=== PATIENT | female | born 1955 | race Caucasian/White ===

== ENCOUNTER 2024-03-29 13:51 | Emergency (ER) | payer MEDICARE, SELFPAY ==
[2024-03-29] VITALS (20 sets, daily range): BP systolic 111–112; BP diastolic 45–52; PULSE 51–57; TEMP 37.1; O2SAT 88–99; BMI 25.1
--- NOTE | 2024-03-29 14:41 | XR_ITS ---
The [address] [address] Patient Name: JOSIANE TREVIÑO MRN: [id number] date: 1955 Sex: F Assigned Patient Location: ER Current Patient Location: ER Accession/Order Number: [id number] Exam Date: 03/29/2024 14:56 Report Date: 03/29/2024 15:22 At the request of: KAYLA COREA Procedure: XR chest 1V EXAMINATION: XR chest 1V HISTORY: Weak, history of nodules COMPARISON: No relevant comparison available. TECHNIQUE: AP portable FINDINGS: LUNGS: No significant pulmonary parenchymal abnormalities. Hyperinflation VASCULATURE: No increased pulmonary vasculature. PLEURA: No pneumothorax, effusion, or pleural thickening. CARDIAC: No cardiomegaly or cardiac silhouette abnormality. MEDIASTINUM: No visible mass or adenopathy. Aortic atherosclerosis BONES: No fracture or visible bone lesion. OTHER: Negative. XR/XR chest 1V IMPRESSION: Hyperinflation, clear lungs Electronically authenticated by: MARK RAMIREZ Date: 03/29/2024 15:22
--- NOTE | 2024-03-29 14:41 | ECG_ITS ---
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
--- NOTE | 2024-03-29 14:41 | CT_ITS ---
The [address] [address] Patient Name: JOSIANE TREVIÑO MRN: [id number] date: 1955 Sex: F Assigned Patient Location: ER Current Patient Location: ER Accession/Order Number: [id number] Exam Date: 03/29/2024 14:56 Report Date: 03/29/2024 16:49 At the request of: KAYLA COREA Procedure: CT head/brain wo con CT HEAD WITHOUT CONTRAST, 03/29/2024. HISTORY: Ataxia. Confusion. COMPARISON: None. TECHNIQUE: Noncontrast axial CT images obtained through the head. Reconstructions obtained in the sagittal and coronal planes. Dose reduction techniques were achieved by using automated exposure control and/or adjustment of mA and/or kV according to patient size and/or use of iterative reconstruction technique. FINDINGS: The paranasal sinuses are clear. Middle ear cavities and mastoid air cells are clear. No skull lesion. Extracranial soft tissue structures unremarkable. Mild brain atrophy. No hydrocephalus. No mass effect. No shift of midline. Mild chronic microvascular ischemic changes in the cerebral white matter. No hemorrhage. No mass. CT/CT head/brain wo con IMPRESSION: 1. No acute findings. No intracranial hemorrhage. 2. Mild chronic microvascular ischemic changes. Electronically authenticated by: MEG HAHN Date: 03/29/2024 16:49
--- NOTE | 2024-03-29 14:42 | ED_ITS ---
HPI HPI - General Adult General Chief complaint: Altered Mental Status Stated complaint: SOB, WEAK, CONFUSION Time Seen by Provider: 03/29/24 14:31 Source: patient Mode of arrival: Wheelchair Limitations: no limitations History of Present Illness HPI narrative: 68-year-old female presents to the emergency department for being off balance and some confusion. She was diagnosed with lung nodules and had a PET scan which showed multiple lesions including at the pancreas. She has an appointment next week with an oncologist and has not had any biopsy or further workup. Over the past few days her daughter explains the patient has been off balance and saying strange things, somewhat confused. There is been no trauma or fever. The patient does not complain of any pain right now including headache. Related Data Previous Rx's ?Medication ?Instructions ?Recorded cephalexin 500 mg capsule 500 mg PO TID 7 days #21 caps 03/29/24 Allergies Allergy/AdvReac Type Severity Reaction Status Date / Time codeine Allergy Severe Hives Verified 03/29/24 14:04 Iodinated Contrast Media Allergy Severe Hives Verified 03/29/24 14:04 Opioid HPI Opioid Management Most Recent Opioid Data: No Data to Display Review of Systems ROS Narrative A ten point review of systems is negative except as noted above. Exam Narrative Exam Narrative: Nurses note and vital signs reviewed and patient is not hypoxic. General: The patient appears well and in no apparent distress. Patient is resting comfortably on cart. Skin: Warm, dry, no pallor noted. There is no rash noted. Head: Normocephalic, atraumatic Eye: Normal conjunctiva, no drainage Ears, Nose, Mouth, and Throat: oral mucosa is moist. Nares patent. Cardiovascular: Regular Rate and Rhythm Respiratory: Patient is in no distress, no accessory muscle use, lungs are clear to auscultation, no wheezing, rales or rhonchi Back: non-tender GI: Soft and nontender Musculoskeletal: The patient has no evidence of calf tenderness, no pitting edema, symmetrical pulses noted bilaterally Neurological: Awake and alert, moves all 4 extremities well Psychiatric: Cooperative Constitutional Vital Signs, click to edit/add: Last Vital Signs Temp 98.7 F 03/29/24 13:56 Pulse 54 L 03/29/24 16:40 Resp 19 03/29/24 16:40 BP 111/52 03/29/24 16:15 Pulse Ox 95 03/29/24 16:10 O2 Del Method Room Air 03/29/24 13:56 Course Vital Signs Vital signs: Vital Signs Temperature 98.7 F 03/29/24 13:56 Pulse Rate 55 L 03/29/24 13:56 Respiratory Rate 16 03/29/24 13:56 Blood Pressure 112/45 L 03/29/24 13:56 Pulse Oximetry 95 03/29/24 13:56 Oxygen Delivery Method Room Air 03/29/24 13:56 Temperature 98.7 F 03/29/24 13:56 Pulse Rate 54 L 03/29/24 16:40 Respiratory Rate 19 03/29/24 16:40 Blood Pressure 111/52 03/29/24 16:15 Pulse Oximetry 95 03/29/24 16:10 Oxygen Delivery Method Room Air 03/29/24 13:56 Medical Decision Making MDM Narrative Medical decision making narrative: CT brain and blood work is negative. Urinalysis shows urinary tract infection and she started on Keflex here and prescribed the same. The patient, her daughter, and I discussed admission and they do not feel that she needs to be admitted. I am comfortable with that plan and she is discharged home. Treatment diagnosis and follow-up were discussed with the patient and her daughter. Differential Diagnosis Differential Diagnosis: Brain metastasis, anemia, acute kidney injury, UTI Lab Data Lab results reviewed: Yes I reviewed the patient's lab results Labs: Lab Results 03/29/24 03/29/24 Range/Units 14:20 16:25 WBC 14.3 H (4.0-11.0) 10^3/uL RBC 4.23 (4.20-5.40) 10^6/uL Hgb 12.8 (12.0-16.0) g/dL Hct 39.7 (36.0-48.0) % MCV 93.9 (81.0-99.0) fL MCH 30.3 (26.7-34.0) pg MCHC 32.2 (29.9-35.2) g/dL RDW 13.2 (11.0-15.0) % Plt Count 298 (150-450) 10^3/uL MPV 11.3 (9.5-13.5) fL Neut % (Auto) 61.9 (43.0-75.0) % Lymph % (Auto) 27.5 (20.5-60.0) % [place] % (Auto) 7.8 (1.7-12.0) % Eos % (Auto) 1.8 (0.9-7.0) % Baso % (Auto) 0.6 (0.2-2.0) % Neut # (Auto) 8.8 H (1.4-6.5) 10^3/uL Lymph # (Auto) 3.9 H (1.2-3.8) 10^3/uL [place] # (Auto) 1.1 H (0.3-0.8) 10^3/uL Eos # (Auto) 0.3 (0.0-0.7) 10^3/uL Baso # (Auto) 0.1 (0.0-0.1) 10^3/uL Abs Immat Gran (auto) 0.06 H (0.00-0.03) 10^3/uL Imm/Tot Granulo (auto) 0.4 (0.0-0.5) % Sodium 134 L (136-145) mmol/L Potassium 3.5 (3.5-5.1) mmol/L Chloride 103 (98-107) mmol/L Carbon Dioxide 26.2 (21.0-32.0) mmol/L Anion Gap 8.3 BUN 8.0 (7.0-18.0) mg/dL Creatinine 0.76 (0.55-1.02) mg/dL Est GFR ( Amer) >60 (>=60) Est GFR (Non-Af Amer) >60 (>=60) BUN/Creatinine Ratio 10.5 Glucose 100 (74-106) mg/dL Calcium 8.8 (8.5-10.1) mg/dL Amylase 25 (25-115) U/L Lipase 34.0 (16.0-77.0) U/L Urine Color Yellow (YELLOW) Urine Clarity Sl cloudy (CLEAR) Urine pH 7.0 (5.0-9.0) Ur Specific [place] <=1.005 A (1.005-1.025) Urine Protein Negative (NEG/TRACE) mg/dL Urine Glucose (UA) Negative (NEGATIVE) mg/dL Urine Ketones Negative (NEGATIVE) mg/dL Urine Occult Blood Trace-i (NEGATIVE) Urine Nitrite Positive A (NEGATIVE) Urine Bilirubin Negative (NEGATIVE) Urine Urobilinogen 0.2 (0.2-1.0) EU/dL Ur Leukocyte Esterase Large A (NEGATIVE) Urine RBC 0-2 (0-2) #/HPF Urine WBC 75-100 A (NONE SEEN) #/HPF Ur Squamous Epith Cells Few A (NONE/RARE) #/LPF Urine Crystals None seen (None Seen) #/HPF Urine Bacteria Large A (NONE SEEN) #/HPF Urine Casts None seen (NONE SEEN) #/LPF Urine Mucus None seen (NONE SEEN) Ur Culture Indicated? Yes Imaging Data CT scan - head: Radiologist's impression: ITS Impressions Chest X-Ray 03/29/24 14:41 IMPRESSION: Hyperinflation, clear lungs Electronically authenticated by: MARK RAMIREZ Date: 03/29/2024 15:[address] 03/29/24 14:41 IMPRESSION: 1. No acute findings. No intracranial hemorrhage. 2. Mild chronic microvascular ischemic changes. Electronically authenticated by: MEG HAHN Date: 03/29/2024 16:49 Discharge Plan Discharge Chief Complaint: Altered Mental Status Clinical Impression: Urinary tract infection Patient Disposition: Home, Self-Care Time of Disposition Decision: 17:05 Condition: Good Mode of Transportation: Private Vehicle Prescriptions / Home Meds: New cephalexin 500 mg capsule 500 mg PO TID 7 Days Qty: 21 0RF Print Language: [place] Instructions: Urinary Tract Infection in Older Adults (ED) Referrals: Physician,Non-Staff, [Primary Care Provider] - 1 week
[2024-03-29 14:52] LABS: Basophils Absolute Auto 0.1 10^3/uL (0.0-0.1); Basophils Percent Auto 0.6 % (0.2-2.0); Eosinophils Absolute Auto 0.3 10^3/uL (0.0-0.7); Eosinophils Percent Auto 1.8 % (0.9-7.0); Hematocrit 39.7 % (36.0-48.0); Hemoglobin 12.8 g/dL (12.0-16.0); Immature Granulocytes Abs Auto 0.06 10^3/uL (0.00-0.03); Immature Granulocytes Pct Auto 0.4 % (0.0-0.5); Lymphocytes Absolute Auto 3.9 10^3/uL (1.2-3.8); Lymphocytes Percent Auto 27.5 % (20.5-60.0); Mean Corpuscular HGB Conc 32.2 g/dL (29.9-35.2); Mean Corpuscular Hemoglobin 30.3 pg (26.7-34.0); Mean Corpuscular Volume 93.9 fL (81.0-99.0); Mean Platelet Volume 11.3 fL (9.5-13.5); Monocytes Absolute Auto 1.1 10^3/uL (0.3-0.8); Monocytes Percent Auto 7.8 % (1.7-12.0); Neutrophils Absolute Auto 8.8 10^3/uL (1.4-6.5); Neutrophils Percent Auto 61.9 % (43.0-75.0); Platelet Count 298 10^3/uL (150-450); Red Blood Count 4.23 10^6/uL (4.20-5.40); Red Cell Distribution Width 13.2 % (11.0-15.0); White Blood Count 14.3 10^3/uL (4.0-11.0)
[2024-03-29 15:09] LABS: Anion Gap 8.3; BUN Creatinine Ratio 10.5; Calcium 8.8 mg/dL (8.5-10.1); Carbon Dioxide 26.2 mmol/L (21.0-32.0); Chloride 103 mmol/L (98-107); Estimated GFR (African America >60 (>=60); Estimated GFR (Non-African Ame >60 (>=60); Glucose 100 mg/dL (74-106); Potassium 3.5 mmol/L (3.5-5.1); Sodium 134 mmol/L (136-145)
[2024-03-29 15:21] LABS: Amylase 25 U/L (25-115)
[2024-03-29 16:43] LABS: Bilirubin Urine NEGATIVE (NEGATIVE); Blood Urine TRACE-I (NEGATIVE); Clarity Urine SL CLOUDY (CLEAR); Color Urine YELLOW (YELLOW); Glucose Urine UA NEGATIVE (NEGATIVE); Ketones Urine NEGATIVE (NEGATIVE); Leukocyte Esterase Urine LARGE (NEGATIVE); Nitrite Urine POSITIVE (NEGATIVE); Protein Urine NEGATIVE (NEG/TRACE); Specific Gravity Urine <=1.005 (1.005-1.025); Urobilinogen Urine 0.2 EU/dL (0.2-1.0)
[2024-03-29 16:53] LABS: WBC Urine 75-100 #/HPF (NONE SEEN)
[2024-03-29 16:54] LABS: Bacteria Urine LARGE #/HPF (NONE SEEN); Cast Seen? NONE SEEN #/LPF (NONE SEEN); Crystals Seen? None Seen #/HPF (None Seen); Mucus Urine NONE SEEN (NONE SEEN); RBC Urine 0-2 #/HPF (0-2); Squamous Epithelial Cell Urine FEW #/LPF (NONE/RARE); Urine Culture Indicated YES
[2024-03-29] MEDS: CEPHALEXIN 500 MG CAPSULE PO (17:11)
== END 2024-03-29 17:30 | disposition home or self-care (01) ==
PROVIDERS: Emergency Provider Emergency Medicine
DX: N39.0 Urinary tract infection, site not specified (principal)
CPT/HCPCS: 36415; 70450; 71045; 80048; 81001; 82150; 83690; 85025; 87086; 87150; 87186; 93005; 99285

== ENCOUNTER 2024-05-21 17:09 | Inpatient (IN) | payer MEDICARE, SELFPAY ==
[2024-05-21] VITALS (20 sets, daily range): BP systolic 80–124; BP diastolic 34–71; PULSE 74–88; TEMP 36.9–37.3; O2SAT 92–96; BMI 30.3; BMI 25.2
--- NOTE | 2024-05-21 17:10 | XR_ITS ---
The [address] [address] Patient Name: JOSIANE TREVIÑO MRN: [id number] date: 1955 Sex: F Assigned Patient Location: ED.MAIN Current Patient Location: ER Accession/Order Number: [id number] Exam Date: 05/21/2024 17:49 Report Date: 05/21/2024 20:09 At the request of: PALMA CAR Procedure: XR chest 1V EXAM: XR chest 1V , 05/21/2024 HISTORY: dizzy COMPARISON: Previous x-ray from 03/29/2024 TECHNIQUE: X-ray of the chest, portable upright AP view. FINDINGS: Cardiac silhouette within normal limits. Mild atherosclerotic calcification of the aortic arch. Bilateral mild emphysema with basal atelectasis. No focal consolidation or pulmonary edema. Right apical 1 cm nodular density, CT scan recommended for complete evaluation. No acute osseous findings. XR/XR chest 1V IMPRESSION: No acute cardiopulmonary findings. Right apical 1 cm nodular density, CT scan recommended for complete evaluation. Electronically authenticated by: MANJEET AMADO Date: 05/21/2024 20:09
--- NOTE | 2024-05-21 17:10 | ECG_ITS ---
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
--- NOTE | 2024-05-21 17:12 | CT_ITS ---
The [address] [address] Patient Name: JOSIANE TREVIÑO MRN: [id number] date: 1955 Sex: F Assigned Patient Location: ED.MAIN Current Patient Location: ED.MAIN Accession/Order Number: [id number] Exam Date: 05/21/2024 17:49 Report Date: 05/21/2024 20:06 At the request of: PALMA CAR Procedure: CT head/brain wo con CT HEAD WITHOUT CONTRAST. INDICATION: Dizziness. COMPARISON: 03/29/2024 TECHNIQUE: Axial CT head images from the skull base to the vertex without IV contrast were acquired. Coronal and sagittal reformats were also obtained. FINDINGS: EXTRA-AXIAL SPACE: Age-appropriate ventricles. No acute extra-axial collection. No extra-axial mass. No midline shift. CEREBRUM: There are areas of periventricular and deep white matter low-attenuation, which is nonspecific but likely reflective of chronic microvascular ischemic disease.. No CT evidence of acute large territorial cortical infarct, hemorrhage or mass effect. CEREBELLUM: No focal abnormality. No CT evidence of acute infarct, hemorrhage or mass effect. BRAINSTEM: No focal abnormality. No CT evidence of acute infarct, hemorrhage or mass effect. EXTRACRANIAL STRUCTURES. The paranasal sinuses are clear. Mastoid air cells are clear. Orbits are unremarkable. No discrete pituitary mass. Intact calvarium. CT/CT head/brain wo con IMPRESSION: No acute intracranial abnormality. Electronically authenticated by: GUILLERMO PRADO Date: 05/21/2024 20:06
--- NOTE | 2024-05-21 17:13 | ED.GENADUL1 ---
HPI HPI - General Adult General Chief complaint: Dizziness Stated complaint: HYPOGLYCEMIA Time Seen by Provider: 05/21/24 17:10 Source: patient and EMR Mode of arrival: ambulance History of Present Illness HPI narrative: Patient is a 68 year old female who presents to the emergency department by ambulance for the evaluation of low blood sugar. Related Data Home Medications ?Medication ?Instructions ?Recorded ?Confirmed albuterol sulfate 90 mcg/actuation 1 puff inhalation Q4H PRN 05/21/24 05/21/24 aerosol inhaler shortness of breath or wheezing atorvastatin 40 mg tablet 40 mg PO DAILY 05/21/24 05/21/24 benzonatate 200 mg capsule 200 mg PO BID 05/21/24 05/21/24 cyanocobalamin (vitamin B-12) 500 500 mcg PO DAILY 05/21/24 05/21/24 mcg tablet diazepam 10 mg tablet 10 mg PO BID PRN anxiety 05/21/24 05/21/24 folic acid 1 mg tablet 1 mg PO DAILY 05/21/24 05/21/24 gabapentin 300 mg capsule 300 mg PO BID 05/21/24 05/21/24 glimepiride 2 mg tablet 2 mg PO QAM 05/21/24 05/21/24 hydrocodone 5 mg-acetaminophen 325 1 tab PO Q6H PRN pain 05/21/24 05/21/24 mg tablet losartan 50 mg tablet 50 mg PO DAILY 05/21/24 05/21/24 metformin 500 mg tablet 500 mg PO BID 05/21/24 05/21/24 paroxetine HCl 30 mg tablet 30 mg PO DAILY 05/21/24 05/21/24 Previous Rx's ?Medication ?Instructions ?Recorded cephalexin 500 mg capsule 500 mg PO TID 7 days #21 caps 03/29/24 Allergies Allergy/AdvReac Type Severity Reaction Status Date / Time codeine Allergy Severe Hives Verified 05/21/24 17:12 Iodinated Contrast Media Allergy Severe Hives Verified 05/21/24 17:12 Opioid HPI Opioid Management Most Recent Opioid Data: No Data to Display Review of Systems ROS Constitutional Denies: fever or chills Ears, nose, mouth, and throat Denies: throat pain or nasal congestion Cardiovascular Denies: chest pain Respiratory Denies: shortness of breath or cough Gastrointestinal Denies: nausea or vomiting Genitourinary Denies: painful urination Musculoskeletal Denies: back pain Integumentary/Breast Denies: rash Neurological Denies: numbness in extremities or weakness in extremities Hematologic/Lymphatic Denies: easy bruising or easy bleeding PFSH [facility] Medical History (Updated 05/21/24 @ 20:42 by ROSALIND Bradshaw) Lung cancer ?C34.90 - Malignant neoplasm of unspecified part of unspecified bronchus or lung (ICD-10) Hypotension ?I95.9 - Hypotension, unspecified (ICD-10) Emphysema of lung ?J43.9 - Emphysema, unspecified (ICD-10) Diabetes ?E11.9 - Type 2 diabetes mellitus without complications (ICD-10) COPD (chronic obstructive pulmonary disease) ?J44.9 - Chronic obstructive pulmonary disease, unspecified (ICD-10) Exam Narrative Exam Narrative: Gen.: Awake, alert, in no distress Head: Normocephalic, atraumatic ENT: Moist mucous membranes, no facial or dental injury Respiratory: No respiratory distress, lungs clear bilaterally Cardio: Regular rate and rhythm Gastrointestinal: Abdomen is soft, nondistended and nontender to palpation Extremities: Moves extremities equally, no injuries noted Psych: Normal mood and affect Neuro: Alert and oriented to person, place, disoriented to time Skin: Warm, dry, intact Constitutional Vital Signs, click to edit/add: Last Vital Signs Temp 99.2 F 05/21/24 17:12 Pulse 80 05/21/24 20:28 Resp 20 05/21/24 20:28 BP 112/64 05/21/24 20:28 Pulse Ox 93 L 05/21/24 20:28 O2 Del Method Room Air 05/21/24 17:29 Course Vital Signs Vital signs: Vital Signs Temperature 99.2 F 05/21/24 17:12 Pulse Rate 79 05/21/24 17:12 Respiratory Rate 20 05/21/24 17:12 Blood Pressure 81/42 L 05/21/24 17:12 Pulse Oximetry 93 L 05/21/24 17:12 Oxygen Delivery Method Room Air 05/21/24 17:12 Temperature 99.2 F 05/21/24 17:12 Pulse Rate 80 05/21/24 20:28 Respiratory Rate 20 05/21/24 20:28 Blood Pressure 112/64 05/21/24 20:28 Pulse Oximetry 93 L 05/21/24 20:28 Oxygen Delivery Method Room Air 05/21/24 17:29 Medical Decision Making MDM Narrative Medical decision making narrative: Patient was medicated with a total of 2 amps of D50, after the first amp, the patient again had hypoglycemia. She was given orange juice and an additional amp of D50, D10 infusion was started at 50 mL/h.. Patient's blood pressure improved with IV fluids. The remainder of her labs show mild dehydration, no evidence of urinary tract infection. Patient with no EKG changes. She has no complaints of chest pain or shortness of breath in the ER. Head CT, chest x-ray reviewed by the radiologist, there is evidence of a lung nodule that is known to the patient already. She is in process of seeking treatment from hematology/oncology for the lung nodule and abnormal PET scan with uptake in the pancreas. She is not currently receiving any chemo or radiation. Patient will be admitted to the hospitalist service for management of her hypoglycemia and hypotension. She is stable at time of admission with stable vital signs. SUPERVISED APC VISIT, PHYSICIAN ATTESTATION: Based on the medical record the care appears appropriate. ? Medical Records Medical records reviewed: Yes I reviewed the patient's medical records Lab Data Lab results reviewed: Yes I reviewed the patient's lab results Labs: Lab Results 05/21/24 05/21/24 05/21/24 Range/Units 17:12 17:20 17:43 WBC 10.9 (4.0-11.0) 10^3/uL RBC 3.83 L (4.20-5.40) 10^6/uL Hgb 11.5 L (12.0-16.0) g/dL Hct 34.9 L (36.0-48.0) % MCV 91.1 (81.0-99.0) fL MCH 30.0 (26.7-34.0) pg MCHC 33.0 (29.9-35.2) g/dL RDW 14.5 (11.0-15.0) % Plt Count 318 (150-450) 10^3/uL MPV 11.4 (9.5-13.5) fL Neut % (Auto) 77.7 H (43.0-75.0) % Lymph % (Auto) 12.8 L (20.5-60.0) % [place] % (Auto) 6.6 (1.7-12.0) % Eos % (Auto) 1.8 (0.9-7.0) % Baso % (Auto) 0.5 (0.2-2.0) % Neut # (Auto) 8.5 H (1.4-6.5) 10^3/uL Lymph # (Auto) 1.4 (1.2-3.8) 10^3/uL [place] # (Auto) 0.7 (0.3-0.8) 10^3/uL Eos # (Auto) 0.2 (0.0-0.7) 10^3/uL Baso # (Auto) 0.1 (0.0-0.1) 10^3/uL Abs Immat Gran (auto) 0.07 H (0.00-0.03) 10^3/uL Imm/Tot Granulo (auto) 0.6 H (0.0-0.5) % PT 11.9 H (9.0-11.6) sec INR 1.14 VBG pH 7.332 (7.330-7.430) VBG pCO2 39.5 L (40.0-52.0) mmHg Sodium 141 (136-145) mmol/L Potassium 3.3 L (3.5-5.1) mmol/L Chloride 106 (98-107) mmol/L Carbon Dioxide 23.0 (21.0-32.0) mmol/L Anion Gap 15.3 BUN 14.0 (7.0-18.0) mg/dL Creatinine 1.46 H (0.55-1.02) mg/dL Est GFR ( Amer) 43 L (>=60 mL/min/1.73m^2) Est GFR (Non-Af Amer) 35 L (>=60 mL/min/1.73m^2) BUN/Creatinine Ratio 9.6 Glucose 55 L (74-106) mg/dL Lactate 2.4 H* (0.4-2.0) mmol/L Calcium 8.7 (8.5-10.1) mg/dL Total Bilirubin 0.3 (0.2-1.0) mg/dL AST 29 (15-37) U/L ALT 23 (14-59) U/L Alkaline Phosphatase 108 (46-116) U/L Troponin I High Sens 4.2 (4.0-51.3) pg/mL Total Protein 6.9 (6.4-8.2) g/dL Albumin 2.8 L (3.4-5.0) g/dL Globulin 4.1 g/dL Albumin/Globulin Ratio 0.7 TSH 1.496 (0.358-3.740) uIU/mL Urine Color Yellow (YELLOW) Urine Clarity Clear (CLEAR) Urine pH 6.5 (5.0-9.0) Ur Specific [place] 1.015 (1.005-1.025) Urine Protein 30 A (NEG/TRACE) mg/dL Urine Glucose (UA) Negative (NEGATIVE) mg/dL Urine Ketones Negative (NEGATIVE) mg/dL Urine Occult Blood Negative (NEGATIVE) Urine Nitrite Negative (NEGATIVE) Urine Bilirubin Negative (NEGATIVE) Urine Urobilinogen 0.2 (0.2-1.0) EU/dL Ur Leukocyte Esterase Negative (NEGATIVE) Urine RBC 0-2 (0-2) #/HPF Urine WBC 0-2 A (NONE SEEN) #/HPF Ur Squamous Epith Cells Rare (NONE/RARE) #/LPF Urine Crystals None seen (None Seen) #/HPF Urine Bacteria Trace A (NONE SEEN) #/HPF Urine Casts None seen (NONE SEEN) #/LPF Urine Mucus None seen (NONE SEEN) Ur Culture Indicated? No Ethanol Quant <3 mg/dL POC Glucose 69 L (74-106) mg/dL 05/21/24 05/21/24 05/21/24 Range/Units 17:56 18:34 19:37 WBC (4.0-11.0) 10^3/uL RBC (4.20-5.40) 10^6/uL Hgb (12.0-16.0) g/dL Hct (36.0-48.0) % MCV (81.0-99.0) fL MCH (26.7-34.0) pg MCHC (29.9-35.2) g/dL RDW (11.0-15.0) % Plt Count (150-450) 10^3/uL MPV (9.5-13.5) fL Neut % (Auto) (43.0-75.0) % Lymph % (Auto) (20.5-60.0) % [place] % (Auto) (1.7-12.0) % Eos % (Auto) (0.9-7.0) % Baso % (Auto) (0.2-2.0) % Neut # (Auto) (1.4-6.5) 10^3/uL Lymph # (Auto) (1.2-3.8) 10^3/uL [place] # (Auto) (0.3-0.8) 10^3/uL Eos # (Auto) (0.0-0.7) 10^3/uL Baso # (Auto) (0.0-0.1) 10^3/uL Abs Immat Gran (auto) (0.00-0.03) 10^3/uL Imm/Tot Granulo (auto) (0.0-0.5) % PT (9.0-11.6) sec INR VBG pH (7.330-7.430) VBG pCO2 (40.0-52.0) mmHg Sodium (136-145) mmol/L Potassium (3.5-5.1) mmol/L Chloride (98-107) mmol/L Carbon Dioxide (21.0-32.0) mmol/L Anion Gap BUN (7.0-18.0) mg/dL Creatinine (0.55-1.02) mg/dL Est GFR ( Amer) (>=60 mL/min/1.73m^2) Est GFR (Non-Af Amer) (>=60 mL/min/1.73m^2) BUN/Creatinine Ratio Glucose (74-106) mg/dL Lactate (0.4-2.0) mmol/L Calcium (8.5-10.1) mg/dL Total Bilirubin (0.2-1.0) mg/dL AST (15-37) U/L ALT (14-59) U/L Alkaline Phosphatase (46-116) U/L Troponin I High Sens (4.0-51.3) pg/mL Total Protein (6.4-8.2) g/dL Albumin (3.4-5.0) g/dL Globulin g/dL Albumin/Globulin Ratio TSH (0.358-3.740) uIU/mL Urine Color (YELLOW) Urine Clarity (CLEAR) Urine pH (5.0-9.0) Ur Specific [place] (1.005-1.025) Urine Protein (NEG/TRACE) mg/dL Urine Glucose (UA) (NEGATIVE) mg/dL Urine Ketones (NEGATIVE) mg/dL Urine Occult Blood (NEGATIVE) Urine Nitrite (NEGATIVE) Urine Bilirubin (NEGATIVE) Urine Urobilinogen (0.2-1.0) EU/dL Ur Leukocyte Esterase (NEGATIVE) Urine RBC (0-2) #/HPF Urine WBC (NONE SEEN) #/HPF Ur Squamous Epith Cells (NONE/RARE) #/LPF Urine Crystals (None Seen) #/HPF Urine Bacteria (NONE SEEN) #/HPF Urine Casts (NONE SEEN) #/LPF Urine Mucus (NONE SEEN) Ur Culture Indicated? Ethanol Quant mg/dL POC Glucose 74 120 H 37 L* (74-106) mg/dL 05/21/24 05/21/24 Range/Units 20:05 20:31 WBC (4.0-11.0) 10^3/uL RBC (4.20-5.40) 10^6/uL Hgb (12.0-16.0) g/dL Hct (36.0-48.0) % MCV (81.0-99.0) fL MCH (26.7-34.0) pg MCHC (29.9-35.2) g/dL RDW (11.0-15.0) % Plt Count (150-450) 10^3/uL MPV (9.5-13.5) fL Neut % (Auto) (43.0-75.0) % Lymph % (Auto) (20.5-60.0) % [place] % (Auto) (1.7-12.0) % Eos % (Auto) (0.9-7.0) % Baso % (Auto) (0.2-2.0) % Neut # (Auto) (1.4-6.5) 10^3/uL Lymph # (Auto) (1.2-3.8) 10^3/uL [place] # (Auto) (0.3-0.8) 10^3/uL Eos # (Auto) (0.0-0.7) 10^3/uL Baso # (Auto) (0.0-0.1) 10^3/uL Abs Immat Gran (auto) (0.00-0.03) 10^3/uL Imm/Tot Granulo (auto) (0.0-0.5) % PT (9.0-11.6) sec INR VBG pH (7.330-7.430) VBG pCO2 (40.0-52.0) mmHg Sodium (136-145) mmol/L Potassium (3.5-5.1) mmol/L Chloride (98-107) mmol/L Carbon Dioxide (21.0-32.0) mmol/L Anion Gap BUN (7.0-18.0) mg/dL Creatinine (0.55-1.02) mg/dL Est GFR ( Amer) (>=60 mL/min/1.73m^2) Est GFR (Non-Af Amer) (>=60 mL/min/1.73m^2) BUN/Creatinine Ratio Glucose (74-106) mg/dL Lactate (0.4-2.0) mmol/L Calcium (8.5-10.1) mg/dL Total Bilirubin (0.2-1.0) mg/dL AST (15-37) U/L ALT (14-59) U/L Alkaline Phosphatase (46-116) U/L Troponin I High Sens (4.0-51.3) pg/mL Total Protein (6.4-8.2) g/dL Albumin (3.4-5.0) g/dL Globulin g/dL Albumin/Globulin Ratio TSH (0.358-3.740) uIU/mL Urine Color (YELLOW) Urine Clarity (CLEAR) Urine pH (5.0-9.0) Ur Specific [place] (1.005-1.025) Urine Protein (NEG/TRACE) mg/dL Urine Glucose (UA) (NEGATIVE) mg/dL Urine Ketones (NEGATIVE) mg/dL Urine Occult Blood (NEGATIVE) Urine Nitrite (NEGATIVE) Urine Bilirubin (NEGATIVE) Urine Urobilinogen (0.2-1.0) EU/dL Ur Leukocyte Esterase (NEGATIVE) Urine RBC (0-2) #/HPF Urine WBC (NONE SEEN) #/HPF Ur Squamous Epith Cells (NONE/RARE) #/LPF Urine Crystals (None Seen) #/HPF Urine Bacteria (NONE SEEN) #/HPF Urine Casts (NONE SEEN) #/LPF Urine Mucus (NONE SEEN) Ur Culture Indicated? Ethanol Quant mg/dL POC Glucose 59 L 247 H (74-106) mg/dL Imaging Data CT scan - head: Attestation: I have reviewed the pertinent imaging results. Radiologist's impression: ITS Impressions Chest X-Ray 05/21/24 17:10 IMPRESSION: No acute cardiopulmonary findings. Right apical 1 cm nodular density, CT scan recommended for complete evaluation. Electronically authenticated by: MANJEET AMADO Date: 05/21/2024 20:[address] 05/21/24 17:12 IMPRESSION: No acute intracranial abnormality. Electronically authenticated by: GUILLERMO PRADO Date: 05/21/2024 20:06 ECG Data Attestation: I personally reviewed and interpreted this ECG as follows: (Normal sinus rhythm at a rate of 79, no acute ST elevation. Mild ST depression in the lateral leads, no ectopy. EKG reviewed by attending physician) Discharge Plan Discharge Chief Complaint: Dizziness Patient Disposition: Admitted as Observation Time of Disposition Decision: 20:40 Prescriptions / Home Meds: No Action albuterol sulfate 90 mcg/actuation HFA aerosol inhaler 1 puff INHALATION Q4H PRN (Reason: shortness of breath or wheezing) atorvastatin 40 mg tablet 40 mg PO DAILY benzonatate 200 mg capsule 200 mg PO BID cyanocobalamin (vitamin B-12) 500 mcg tablet 500 mcg PO DAILY diazepam 10 mg tablet 10 mg PO BID PRN (Reason: anxiety) folic acid 1 mg tablet 1 mg PO DAILY gabapentin 300 mg capsule 300 mg PO BID glimepiride 2 mg tablet 2 mg PO QAM hydrocodone-acetaminophen 5-325 mg tablet 1 tab PO Q6H PRN (Reason: pain) losartan 50 mg tablet 50 mg PO DAILY metformin 500 mg tablet 500 mg PO BID paroxetine HCl 30 mg tablet 30 mg PO DAILY cephalexin 500 mg capsule 500 mg PO TID 7 Days Qty: 21 0RF Print Language: Romansh Referrals: Physician,Non-Staff, MD [Physician] - 1 week
[2024-05-21 17:15] LABS: Glucometer 69 mg/dL (74-106)
[2024-05-21] MEDS: DEXTROSE 50 %-WATER 25 GM/50 ML SYRINGE 25 ML IV ×2 (17:22→18:21)
[2024-05-21] MEDS: 0.9 % SODIUM CHLORIDE 1,000 ML 1000 ML IV (17:23)
[2024-05-21 17:32] LABS: PCO2 VBG 39.5 mmHg (40.0-52.0); pH VBG 7.332 (7.330-7.430)
[2024-05-21 17:48] LABS: Basophils Absolute Auto 0.1 10^3/uL (0.0-0.1); Basophils Percent Auto 0.5 % (0.2-2.0); Eosinophils Absolute Auto 0.2 10^3/uL (0.0-0.7); Eosinophils Percent Auto 1.8 % (0.9-7.0); Hematocrit 34.9 % (36.0-48.0); Hemoglobin 11.5 g/dL (12.0-16.0); Immature Granulocytes Abs Auto 0.07 10^3/uL (0.00-0.03); Immature Granulocytes Pct Auto 0.6 % (0.0-0.5); Lymphocytes Absolute Auto 1.4 10^3/uL (1.2-3.8); Lymphocytes Percent Auto 12.8 % (20.5-60.0); Mean Corpuscular Volume 91.1 fL (81.0-99.0); Mean Platelet Volume 11.4 fL (9.5-13.5); Monocytes Absolute Auto 0.7 10^3/uL (0.3-0.8); Monocytes Percent Auto 6.6 % (1.7-12.0); Neutrophils Absolute Auto 8.5 10^3/uL (1.4-6.5); Neutrophils Percent Auto 77.7 % (43.0-75.0); Platelet Count 318 10^3/uL (150-450); Red Blood Count 3.83 10^6/uL (4.20-5.40); Red Cell Distribution Width 14.5 % (11.0-15.0); White Blood Count 10.9 10^3/uL (4.0-11.0)
[2024-05-21 17:53] LABS: INR 1.14; Prothrombin Time 11.9 sec (9.0-11.6)
[2024-05-21 17:59] LABS: Glucometer 74 mg/dL (74-106)
[2024-05-21 18:00] LABS: Alanine Aminotransferase 23 U/L (14-59); Albumin Globulin Ratio 0.7; Albumin Level 2.8 g/dL (3.4-5.0); Alkaline Phosphatase 108 U/L (46-116); Anion Gap 15.3; Aspartate Amino Transferase 29 U/L (15-37); BUN Creatinine Ratio 9.6; Bilirubin Total 0.3 mg/dL (0.2-1.0); Calcium 8.7 mg/dL (8.5-10.1); Chloride 106 mmol/L (98-107); Estimated GFR (African America 43 (>=60 mL/min/1.73m^2); Estimated GFR (Non-African Ame 35 (>=60 mL/min/1.73m^2); Globulin 4.1 g/dL; Glucose 55 mg/dL (74-106); Potassium 3.3 mmol/L (3.5-5.1); Sodium 141 mmol/L (136-145); Thyroid Stimulating Hormone 1.496 uIU/mL (0.358-3.740); Total Protein 6.9 g/dL (6.4-8.2); Troponin I High Sensitivity 4.2 pg/mL (4.0-51.3)
[2024-05-21 18:01] LABS: Bilirubin Urine NEGATIVE (NEGATIVE); Blood Urine NEGATIVE (NEGATIVE); Clarity Urine CLEAR (CLEAR); Color Urine YELLOW (YELLOW); Glucose Urine UA NEGATIVE (NEGATIVE); Ketones Urine NEGATIVE (NEGATIVE); Leukocyte Esterase Urine NEGATIVE (NEGATIVE); Nitrite Urine NEGATIVE (NEGATIVE); Protein Urine 30 mg/dL (NEG/TRACE); Specific Gravity Urine 1.015 (1.005-1.025); Urobilinogen Urine 0.2 EU/dL (0.2-1.0); pH Urine 6.5 (5.0-9.0)
[2024-05-21 18:03] LABS: Lactate/Lactic Acid 2.4 mmol/L (0.4-2.0)
[2024-05-21 18:07] LABS: Urine Microscopic Indicated YES
[2024-05-21 18:14] LABS: Bacteria Urine TRACE #/HPF (NONE SEEN); Cast Seen? NONE SEEN #/LPF (NONE SEEN); Crystals Seen? None Seen #/HPF (None Seen); Mucus Urine NONE SEEN (NONE SEEN); RBC Urine 0-2 #/HPF (0-2); Squamous Epithelial Cell Urine RARE #/LPF (NONE/RARE); Urine Culture Indicated NO; WBC Urine 0-2 #/HPF (NONE SEEN)
[2024-05-21 18:18] LABS: Ethanol <3 mg/dL
[2024-05-21 18:38] LABS: Glucometer 120 mg/dL (74-106)
[2024-05-21 19:39] LABS: Glucometer 37 mg/dL (74-106)
[2024-05-21] MEDS: DEXTROSE 10 % IN WATER 1,000 ML 50 ML IV (19:48)
[2024-05-21 20:08] LABS: Glucometer 59 mg/dL (74-106)
[2024-05-21] MEDS: DEXTROSE 50 %-WATER 25 GM/50 ML SYRINGE IV ×2 (20:25→22:43)
[2024-05-21 20:33] LABS: Glucometer 247 mg/dL (74-106)
[2024-05-21 21:03] LABS: Glucometer 138 mg/dL (74-106)
[2024-05-21 22:20] LABS: Glucometer 67 mg/dL (74-106)
[2024-05-21] MEDS: ENOXAPARIN SODIUM 30 MG/0.3 ML SYRINGE SUBQ (23:06)
[2024-05-21] MEDS: DEXTROSE 5%-LACTATED RINGERS 1,000 ML 125 ML IV (23:07)
[2024-05-21 23:12] LABS: Internal Control Within Normal Limits; Occult Blood Negative
[2024-05-21 23:55] LABS: Influenza Virus A Antigen Negative; Influenza Virus B Antigen Negative; Internal Control Within Normal Limits; SARS-CoV-2 Ag NEGATIVE (NEGATIVE)
[2024-05-22] VITALS (18 sets, daily range): BP systolic 125–153; BP diastolic 52–74; PULSE 61–96; TEMP 36.8–37.3; O2SAT 91–93
[2024-05-22] MEDS: DEXTROSE 50 %-WATER 25 GM/50 ML SYRINGE IV (01:07)
[2024-05-22 01:55] LABS: Glucometer 212 mg/dL (74-106)
[2024-05-22] MEDS: GLUCAGON 1 MG/ML VIAL SUBQ (01:55)
--- NOTE | 2024-05-22 02:30 | CT_ITS ---
The [address] [address] Patient Name: JOSIANE TREVIÑO MRN: [id number] date: 1955 Sex: F Assigned Patient Location: [place] Current Patient Location: [place] Accession/Order Number: [id number] Exam Date: 05/22/2024 05:40 Report Date: 05/22/2024 06:44 At the request of: GAVI PORTER Procedure: CT abdomen pelvis wo con EXAM: CT abdomen pelvis wo con HISTORY: refractory hypoglycemia COMPARISON: None. TECHNIQUE: Nonenhanced CT imaging the abdomen and pelvis was performed with sagittal and coronal reconstructions. Dose reduction techniques were achieved by using automated exposure control and/or adjustment of mA and/or kV according to patient size and/or use of iterative reconstruction technique. FINDINGS: CT ABDOMEN: Mild emphysematous changes are seen at the lung bases with motion artifact. The imaged heart is unremarkable. Mildly prominent but nonenlarged anterior pericardial lymph nodes are present. The exam is limited by the lack of IV contrast. Solid organ lesions or acute abnormalities could be missed. There is a 0.7 cm hypodense lesion in the inferior right hepatic lobe, incompletely evaluated but possibly a benign cyst or hemangioma. The liver is otherwise unremarkable. The gallbladder, pancreas, spleen, adrenal glands and right kidney are grossly unremarkable, allowing for the lack of contrast. There is a 6.3 cm cortical cyst in the lateral midpole of the left kidney. The left kidney is otherwise unremarkable. The stomach and small bowel appear within normal limits. There are prominent aortic and iliac calcifications without aneurysm. The IVC appears normal. CT PELVIS: There is a normal appendix on images 64 through 70. The pelvic small bowel bowel loops and uterus are unremarkable. There is a Caal catheter in the urinary bladder with air in the bladder lumen related to catheterization. There is sigmoid diverticulosis with nonspecific wall thickening in the largely decompressed sigmoid colon. No free fluid, loculated fluid, free air, soft tissue gas or acute osseous abnormality is seen in the abdomen or pelvis. Multilevel spinal degenerative changes are noted. No acute osseous abnormality or suspicious bony lesion is seen. CT/CT abdomen pelvis wo con IMPRESSION: Sigmoid diverticulosis with nonspecific wall thickening in the decompressed sigmoid colon. This may reflect colonic decompression, mild short segment colitis or less likely, diverticulitis. No surrounding inflammatory change is seen. No other potential acute findings are seen in the abdomen or pelvis, allowing for exam limitations due to the lack of contrast. Please see above for additional nonacute findings. Electronically authenticated by: COBY DE ANDA Date: 05/22/2024 06:44
[2024-05-22 03:13] LABS: Bilirubin Urine NEGATIVE (NEGATIVE); Blood Urine NEGATIVE (NEGATIVE); Clarity Urine CLEAR (CLEAR); Color Urine LT. YELLOW (YELLOW); Glucose Urine UA NEGATIVE (NEGATIVE); Ketones Urine NEGATIVE (NEGATIVE); Leukocyte Esterase Urine NEGATIVE (NEGATIVE); Nitrite Urine NEGATIVE (NEGATIVE); Protein Urine NEGATIVE (NEG/TRACE); Specific Gravity Urine <=1.005 (1.005-1.025); Urobilinogen Urine 0.2 EU/dL (0.2-1.0)
[2024-05-22 03:14] LABS: Urine Microscopic Indicated NO
[2024-05-22 03:27] LABS: Alanine Aminotransferase 21 U/L (14-59); Albumin Globulin Ratio 0.7; Albumin Level 2.5 g/dL (3.4-5.0); Alkaline Phosphatase 100 U/L (46-116); Anion Gap 13.9; Aspartate Amino Transferase 27 U/L (15-37); BUN Creatinine Ratio 8.3; Bilirubin Total 0.4 mg/dL (0.2-1.0); Calcium 8.5 mg/dL (8.5-10.1); Carbon Dioxide 22.3 mmol/L (21.0-32.0); Chloride 107 mmol/L (98-107); Estimated GFR (African America >60 (>=60 mL/min/1.73m^2); Estimated GFR (Non-African Ame 50 (>=60 mL/min/1.73m^2); Globulin 3.7 g/dL; Glucose 148 mg/dL (74-106); Magnesium 1.6 mg/dL (1.8-2.4); Potassium 3.2 mmol/L (3.5-5.1); Sodium 140 mmol/L (136-145); Total Protein 6.2 g/dL (6.4-8.2)
[2024-05-22 03:30] LABS: Lactate/Lactic Acid 1.9 mmol/L (0.4-2.0)
[2024-05-22] MEDS: ACETAMINOPHEN 1,000 MG/100 ML PREMIX 400 MG IV (04:17)
[2024-05-22] MEDS: DEXTROSE 5%-LACTATED RINGERS 1,000 ML 125 ML IV (05:37)
[2024-05-22 06:58] LABS: Basophils Percent Auto 0.2 % (0.2-2.0); Eosinophils Absolute Auto 0.2 10^3/uL (0.0-0.7); Eosinophils Percent Auto 2.1 % (0.9-7.0); Hematocrit 32.2 % (36.0-48.0); Hemoglobin 10.8 g/dL (12.0-16.0); Immature Granulocytes Abs Auto 0.06 10^3/uL (0.00-0.03); Immature Granulocytes Pct Auto 0.5 % (0.0-0.5); Lymphocytes Absolute Auto 1.9 10^3/uL (1.2-3.8); Lymphocytes Percent Auto 16.2 % (20.5-60.0); Mean Corpuscular HGB Conc 33.5 g/dL (29.9-35.2); Mean Corpuscular Hemoglobin 30.4 pg (26.7-34.0); Mean Corpuscular Volume 90.7 fL (81.0-99.0); Mean Platelet Volume 11.2 fL (9.5-13.5); Monocytes Absolute Auto 0.8 10^3/uL (0.3-0.8); Monocytes Percent Auto 6.5 % (1.7-12.0); Neutrophils Absolute Auto 8.5 10^3/uL (1.4-6.5); Neutrophils Percent Auto 74.5 % (43.0-75.0); Platelet Count 273 10^3/uL (150-450); Red Blood Count 3.55 10^6/uL (4.20-5.40); Red Cell Distribution Width 14.4 % (11.0-15.0); White Blood Count 11.5 10^3/uL (4.0-11.0)
[2024-05-22] MEDS: DEXTROSE 5 %-0.45 % SOD CHLORD 1,000 ML 150 ML IV ×3 (07:32→19:35)
[2024-05-22] MEDS: ATORVASTATIN CALCIUM 40 MG TABLET PO (08:49)
[2024-05-22] MEDS: PAROXETINE HCL 20 MG TABLET 30 MG PO (08:49)
[2024-05-22] MEDS: FOLIC ACID 1 MG TABLET PO (08:49)
[2024-05-22] MEDS: BENZONATATE 100 MG CAPSULE 200 MG PO ×2 (08:49→21:26)
--- NOTE | 2024-05-22 10:29 | CM.NOTE ---
Rounds made with Dr. Rea, discussed with pt possible discharge to home this afternoon if BS remained stable. Dr. Rea will change home insulin dose for discharge.
--- NOTE | 2024-05-22 11:25 | CM.NOTE ---
Talked with pt and daughter regarding checking BS at home, pt does not have a glucometer. Pt has not checked her BS at home for years per pt. Explained the importance of monitoring for adjusting insulin dose, pt and daughter verbalize understanding. Pt denies need for diabetic education. Pt states that she had not had any issues with her BS until recently, discussed about checking BS and recording so she had information at f/u appt with adjusted insulin dose. Dr. Rea will write pt a script for new machine (glucometer), pt voices understanding.
[2024-05-22 12:03] LABS: Glucometer 135 mg/dL (74-106)
--- NOTE | 2024-05-22 12:10 | CM.NOTE ---
Medicare Outpatient Observation Notice discussed with pt, pt verbalizes understanding and signs paper. Original given to pt and copy placed on pt's chart.
--- NOTE | 2024-05-22 13:36 | P.HP_ITS ---
HPI H&P: HPI History of Present Illness Chief complaint: HYPERGLYCEMIA HYPOTENSIOM Narrative: 68-year-old female with past medical history of type 2 diabetes, on oral hypoglycemics was in her usual state of health when she was noted to have diaphoresis/confusion/blurring of vision along with tremors for which EMS was called in and she was found to have low blood glucose for which she was given IV dextrose and brought over to ED. She required multiple doses of IV dextrose 50 pushes overnight for recurrent symptomatic hypoglycemia even while she was on continuous D10 infusion overnight requiring close monitoring of her blood glucose, more or less hourly to ensure she did not develop hypoglycemia again while on continuous D10 infusion. She also received glucagon overnight for hypoglycemia. Her blood glucose was as low as 37 overnight. She was also hypotensive overnight likely from dehydration/hypovolemia with BP in low 80s requiring IV fluids boluses. When I evaluated her, her symptoms had resolved and she felt better overall other than feeling weak. She was switched to D5-0.45 NS in the morning and is eating well w/o any nausea/vomiting. However, she continues to have intermittent low blood glucose with most recent low blood glucose measured to be 59 at noon. This was while she is currently receiving continuous IV D5-0.45NS. Given recurrent hypoglycemia while on IV dextrose infusion, requiring close monitoring and frequent POC glucose testing, I changed her to inpatient as she has not improved clinically sufficiently while on observation and will require continued inpatient treatment and monitoring. She is on metformin and glimepiride as outpatient and glimepiride is typically expected to last 24 hours until fully excreted. Patient does not have glucometer at home. Does not eat regular consistent meals. Opioid HPI Opioid Management Most Recent Pain and Opioid Data: Last Pain Scale 0 05/22/24 06:00 05/22/24 Last Pain Assessment 05/22/24 11:53 Last MAR Pain Assessment 05/22/24 04:17 Review of Systems ROS Status of ROS 10 or more systems reviewed and unremark able except as noted in history and below [facility] Medical History (Updated 05/22/24 @ 13:40 by Shaikh Rona MD) HLD (hyperlipidemia) ?E78.5 - Hyperlipidemia, unspecified (ICD-10) Lung cancer ?C34.90 - Malignant neoplasm of unspecified part of unspecified bronchus or lung (ICD-10) Hypotension ?I95.9 - Hypotension, unspecified (ICD-10) Emphysema of lung ?J43.9 - Emphysema, unspecified (ICD-10) Diabetes ?E11.9 - Type 2 diabetes mellitus without complications (ICD-10) COPD (chronic obstructive pulmonary disease) ?J44.9 - Chronic obstructive pulmonary disease, unspecified (ICD-10) Social History Little interest or pleasure in doing things: not at all Feeling down, depressed, or hopeless: not at all Meds Home Medications and Allergies Home Medications ?Medication ?Instructions ?Recorded ?Confirmed ?Type cephalexin 500 mg capsule 500 mg PO TID 7 days #21 caps 03/29/24 05/21/24 Rx albuterol sulfate 90 mcg/actuation 1 puff inhalation Q4H PRN 05/21/24 05/21/24 History aerosol inhaler shortness of breath or wheezing atorvastatin 40 mg tablet 40 mg PO DAILY 05/21/24 05/21/24 History benzonatate 200 mg capsule 200 mg PO BID 05/21/24 05/21/24 History cyanocobalamin (vitamin B-12) 500 500 mcg PO DAILY 05/21/24 05/21/24 History mcg tablet diazepam 10 mg tablet 10 mg PO BID PRN anxiety 05/21/24 05/21/24 History folic acid 1 mg tablet 1 mg PO DAILY 05/21/24 05/21/24 History glimepiride 2 mg tablet 2 mg PO QAM 05/21/24 05/21/24 History hydrocodone 5 mg-acetaminophen 325 1 tab PO Q6H PRN pain 05/21/24 05/21/24 History mg tablet losartan 50 mg tablet 50 mg PO DAILY 05/21/24 05/21/24 History metformin 500 mg tablet 500 mg PO BID 05/21/24 05/21/24 History paroxetine HCl 30 mg tablet 30 mg PO DAILY 05/21/24 05/21/24 History Allergies Allergy/AdvReac Type Severity Reaction Status Date / Time codeine Allergy Severe Hives Verified 05/21/24 17:12 Iodinated Contrast Media Allergy Severe Hives Verified 05/21/24 17:12 Exam Constitutional Vital Signs, click to edit/add: Last Vital Signs Temp 98.2 F 05/22/24 11:52 Pulse 62 05/22/24 11:55 Resp 16 05/22/24 11:52 BP 133/68 05/22/24 11:52 Pulse Ox 92 L 05/22/24 11:52 O2 Del Method Room Air 05/22/24 11:52 Documenting provider has reviewed patient's vital signs: yes Common normals: no apparent distress and oriented x3 General appearance: cooperative and frail appearing [facility] Common normals: normocephalic and head/scalp atraumatic Head and scalp: normocephalic and atraumatic Eye Common normals: conjunctivae normal and no scleral icterus Conjunctiva: conjunctiva(e) normal Respiratory Common normals: normal respiratory effort and clear to auscultation bilaterally Effort & inspection: able to speak in complete sentences Auscultation: clear to auscultation bilaterally Cardio Common normals: regular rate, S1 normal heart sound and S2 normal heart sound Rate: regular rate Heart sounds: S1 normal and S2 normal GI Common normals: Normal to inspection, nondistended, normoactive bowel sounds present, soft to palpation, non-tender and no hepatosplenomegaly Palpation: soft and no hepatosplenomegaly Extremity Common normals: no clubbing, cyanosis or edema Neuro Common normals: oriented x3, moves all extremities and no focal motor deficits Psych Common normals: mental status grossly normal, denies hallucinations, denies homicidal ideation and denies suicidal ideation Results Labs Labs: Short CBC 05/21/24 05/22/24 Range/Units 17:20 06:28 WBC 10.9 11.5 H (4.0-11.0) 10^3/uL Hgb 11.5 L 10.8 L (12.0-16.0) g/dL Hct 34.9 L 32.2 L (36.0-48.0) % Plt Count 318 273 (150-450) 10^3/uL BMP 05/21/24 05/22/24 17:20 02:56 Sodium 141 140 Potassium 3.3 L 3.2 L Chloride 106 107 Carbon Dioxide 23.0 22.3 BUN 14.0 9.0 Creatinine 1.46 H 1.09 H Glucose 55 L 148 H Calcium 8.7 8.5 Liver Function 05/21/24 05/22/24 Range/Units 17:20 02:56 Total Bilirubin 0.3 0.4 (0.2-1.0) mg/dL AST 29 27 (15-37) U/L ALT 23 21 (14-59) U/L Alkaline Phosphatase 108 100 (46-116) U/L Albumin 2.8 L 2.5 L (3.4-5.0) g/dL Urine 05/21/24 05/22/24 Range/Units 17:43 03:01 Urine Color Yellow Lt. yellow (YELLOW) Urine Clarity Clear Clear (CLEAR) Urine pH 6.5 7.0 (5.0-9.0) Ur Specific Teller 1.015 <=1.005 A (1.005-1.025) Urine Protein 30 A Negative (NEG/TRACE) mg/dL Urine Glucose (UA) Negative Negative (NEGATIVE) mg/dL ABG ABG results: 05/21/24 17:20 VBG pH 7.332 VBG pCO2 39.5 L Assessment and Plan Assessment and Plan (1) Hypotension due to hypovolemia: Assessment and Plan: BP low on arrival, multiple readings as low as 80/30. Improved now. Hold losartan. C/w IV hydration. Monitor closely. (2) Dehydration: Assessment and Plan: C/w IV hydration. Monitor UO, c/w close hemodynamic monitoring. (3) Hypoglycemia: Assessment and Plan: Recurrent hypoglycemia, requiring D50 IV pushes while on continuous D10 infusion. Also received glucagon. Switched to D5-0.45 this morning. POC glucose improved now but was low at noon. C/w same. Check A1C. Hold oral hypoglycemics. Once persistently normal, will d/c IV D5 and monitor POC glucose w/o it to ensure she maintains normal blood glucose. (4) Diabetes: Assessment and Plan: On metofrmin/glimepiride as outpatient. Hold oral hypoglycemics. Check A1C. On D5-0.45 currently. Once POC glucose are consistently normal, I will d/c D5- 0.45 NS and monitor patient's blood glucose closely Qualifiers: Diabetes mellitus type: type 2 Diabetes mellitus manager long term care insulin use: without manager long term care use Diabetes mellitus complication status: with hypoglycemia Diabetes mellitus complication detail: without coma Qualified Code(s): E11.649 - Type 2 diabetes mellitus with hypoglycemia without coma (5) COPD (chronic obstructive pulmonary disease): Assessment and Plan: C/w duonebs. No active wheezing. Qualifiers: COPD type: emphysema Emphysema type: centrilobular Qualified Code(s): J43.2 - Centrilobular emphysema (6) Pancreatic cancer metastasized to lung: Assessment and Plan: New diagnosis. Has not started treatment yet. (7) HLD (hyperlipidemia): Assessment and Plan: c/w lipitor. Qualifiers: Hyperlipidemia type: unspecified Qualified Code(s): E78.5 - Hyperlipidemia, unspecified Urinary Catheter Management Urinary Catheter Management Urethral: Cath placed during this visit: yes Urethral indwelling: No Insertion date: 05/22/24 Insertion time: 02:50
[2024-05-22 16:45] LABS: C. Difficile PCR NEGATIVE
--- NOTE | 2024-05-22 17:48 | DIETREC ---
Initial diabetic diet education completed, will follow up prior to discharge to reinforce principles. Recommend 1800 kcal CCD diet.
[2024-05-22] MEDS: OLANZapine 5 MG TABLET PO (21:25)
[2024-05-22] MEDS: ENOXAPARIN SODIUM 40 MG/0.4 ML SYRINGE SUBQ (21:29)
[2024-05-23] VITALS (10 sets, daily range): BP systolic 103–147; BP diastolic 62–75; PULSE 64–103; TEMP 36.4–37.5; O2SAT 88–95; BMI 25.2
[2024-05-23] MEDS: NICOTINE 21 MG PATCH.TD24 TD (00:15)
[2024-05-23] MEDS: QUETIAPINE FUMARATE 25 MG TABLET PO (00:15)
[2024-05-23] MEDS: DEXTROSE 5 %-0.45 % SOD CHLORD 1,000 ML 150 ML IV (02:02)
[2024-05-23 02:14] LABS: Estimated Average Glucose 126 mg/dL
[2024-05-23] MEDS: ZIPRASIDONE MESYLATE 20 MG VIAL 10 MG IM (02:45)
[2024-05-23] MEDS: WATER FOR INJECTION, STERILE 20 ML VIAL INJ (02:46)
[2024-05-23 05:56] LABS: Basophils Percent Auto 0.4 % (0.2-2.0); Eosinophils Absolute Auto 0.2 10^3/uL (0.0-0.7); Eosinophils Percent Auto 2.5 % (0.9-7.0); Hematocrit 35.5 % (36.0-48.0); Hemoglobin 11.7 g/dL (12.0-16.0); Immature Granulocytes Abs Auto 0.02 10^3/uL (0.00-0.03); Immature Granulocytes Pct Auto 0.3 % (0.0-0.5); Lymphocytes Absolute Auto 1.6 10^3/uL (1.2-3.8); Mean Corpuscular Hemoglobin 29.5 pg (26.7-34.0); Mean Corpuscular Volume 89.6 fL (81.0-99.0); Monocytes Absolute Auto 0.7 10^3/uL (0.3-0.8); Monocytes Percent Auto 8.6 % (1.7-12.0); Neutrophils Absolute Auto 5.2 10^3/uL (1.4-6.5); Neutrophils Percent Auto 67.2 % (43.0-75.0); Platelet Count 266 10^3/uL (150-450); Red Blood Count 3.96 10^6/uL (4.20-5.40); White Blood Count 7.7 10^3/uL (4.0-11.0)
[2024-05-23 06:22] LABS: Alanine Aminotransferase 22 U/L (14-59); Albumin Globulin Ratio 0.7; Albumin Level 2.5 g/dL (3.4-5.0); Alkaline Phosphatase 104 U/L (46-116); Anion Gap 14.5; Aspartate Amino Transferase 27 U/L (15-37); BUN Creatinine Ratio 3.5; Bilirubin Total 0.4 mg/dL (0.2-1.0); Calcium 8.3 mg/dL (8.5-10.1); Carbon Dioxide 22.8 mmol/L (21.0-32.0); Chloride 109 mmol/L (98-107); Estimated GFR (African America >60 (>=60 mL/min/1.73m^2); Estimated GFR (Non-African Ame >60 (>=60 mL/min/1.73m^2); Globulin 3.8 g/dL; Glucose 166 mg/dL (74-106); Potassium 3.3 mmol/L (3.5-5.1); Sodium 143 mmol/L (136-145); Total Protein 6.3 g/dL (6.4-8.2)
[2024-05-23] MEDS: ATORVASTATIN CALCIUM 40 MG TABLET PO (08:12)
[2024-05-23] MEDS: MAGNESIUM SULFATE IN WATER 2 GM/50 ML PREMIX IV (08:12)
[2024-05-23] MEDS: OXYCODONE HCL 5 MG TABLET PO (08:13)
[2024-05-23] MEDS: PAROXETINE HCL 20 MG TABLET 30 MG PO (08:13)
[2024-05-23] MEDS: BENZONATATE 100 MG CAPSULE 200 MG PO (08:13)
[2024-05-23] MEDS: ACETAMINOPHEN 325 MG TABLET 650 MG PO (08:14)
[2024-05-23] MEDS: LORAZEPAM 2 MG/ML VIAL 1 MG IV (08:14)
[2024-05-23] MEDS: ONDANSETRON PF 4 MG/2 ML VIAL IV (08:14)
[2024-05-23] MEDS: FOLIC ACID 1 MG TABLET PO (08:14)
--- NOTE | 2024-05-23 09:42 | CM.NOTE ---
Rounds made with Dr. Rea. Plan to recheck later this afternoon--difficult to arouse.
--- NOTE | 2024-05-23 10:04 | MR_ITS ---
The [address] [address] Patient Name: JOSIANE TREVIÑO MRN: [id number] date: 1955 Sex: F Assigned Patient Location: [place] Current Patient Location: [place] Accession/Order Number: [id number] Exam Date: 05/23/2024 10:45 Report Date: 05/23/2024 11:37 At the request of: SHAIKH EMILY Procedure: MR head/brain wo con EXAM: MR head/brain wo con HISTORY: Confusion, metastatic pancreatic cancer COMPARISON: CT head 05/21/2024. TECHNIQUE: Multiplanar multisequence MR imaging of the brain was performed without intravenous contrast. FINDINGS: Calvarium/skull base: No focal marrow replacing lesion suggestive of neoplasm. Orbits: Grossly unremarkable. Paranasal sinuses: Imaged portions clear Brain: No restricted diffusion. Moderate T2 FLAIR signal hyperintensities are present involving the supratentorial and central pontine white matter. While nonspecific this likely relates to combination of sequela of small vessel disease and posttreatment related change. Mild involvement of the left thalamus is noted. Mild parenchymal volume loss. No mass effect, hemorrhage, or hydrocephalus. Grossly normal flow-related signal in the major intracranial arteries and dural sinuses. Additional Comments: None MR/MR head/brain wo con IMPRESSION: No acute intracranial process. No overt evidence for intracranial metastatic disease given lack of intravenous contrast. Electronically authenticated by: VITO SNIDER Date: 05/23/2024 11:37
--- NOTE | 2024-05-23 10:42 | PC.NURSE ---
Dr Rea updated on pt's FSBS, and the continued decline. Last FSBS @ [phone] - [phone] - Pt placed on Radiology stretcher and escorted to department for MRI.
--- NOTE | 2024-05-23 10:50 | P.IMPN_ITS ---
Progress Note: A&P Assessment and Plan (1) Delirium: Assessment and Plan: Acutely delirious overnight. Was combative/agitated and was experiencing hallucinations. Blood glucose was normal at the time. Patient given multiple medications and as a result was drowsy and sleeping in the morning. I could not wake her up and plan to re assess her once medications wear off. MRI brain ordered - hx of new pancreatic cancer, acute confusional state/delirium, concern for intracranial mets. (2) Hypotension due to hypovolemia: Assessment and Plan: BP is now stable. Can resume Losartan. (3) Dehydration: Assessment and Plan: Does not appears to be dehydrated anymore, BP stable now. D/c IVF. (4) Hypoglycemia: Assessment and Plan: POC glucose remained above 100 while on D5. D/c IV dextrose and monitor blood glucose w/o it. Her POC glucose have been steadily decreasing but she is also not eating because of the effects of medications given overnight to calm her down. (5) Diabetes: Assessment and Plan: Hold metformin/glimepiride. Monitor POC glucose closely now that D5 IV has been discontinued. Qualifiers: Diabetes mellitus type: type 2 Diabetes mellitus alf insulin use: without derrick boat operator use Diabetes mellitus complication status: with hypoglycemia Diabetes mellitus complication detail: without coma Qualified Code(s): E11.649 - Type 2 diabetes mellitus with hypoglycemia without coma (6) COPD (chronic obstructive pulmonary disease): Assessment and Plan: Stable. No wheezing noted. Qualifiers: COPD type: emphysema Emphysema type: centrilobular Qualified Code(s): J43.2 - Centrilobular emphysema (7) Pancreatic cancer metastasized to lung: Assessment and Plan: Recent diagnosis, not started on treatment yet Patient was confused/agitated and combative last night. While this could be delirium/sundowning, I am concerned that this could be due to metastatic brain disease also. Ordered MRI to r/o intracranial mets. (8) HLD (hyperlipidemia): Assessment and Plan: C/w statin Qualifiers: Hyperlipidemia type: unspecified Qualified Code(s): E78.5 - Hyperlipidemia, unspecified Internal Medicine - PN: Subj Subjective Interval history: Seen and examined. Patient sleeping, drowsy, could not wake her up. Overnight, she was extremely combative/agitated and was experiencing hallucinations and required IM geodon, PO seroquel and IV ativan. She is likely under the effects of multiple medications given to her overnight for agitation. Exam Constitutional Vital Signs, click to edit/add: Last Vital Signs Temp 99.5 F 05/23/24 08:14 Pulse 80 05/23/24 10:00 Resp 18 05/23/24 08:15 BP 144/75 H 05/23/24 08:14 Pulse Ox 95 05/23/24 08:14 O2 Del Method Nasal Cannula 05/23/24 08:14 Documenting provider has reviewed patient's vital signs: yes Common normals: no apparent distress General appearance: frail appearing Other: Sleeping/drowsy. Eye Common normals: conjunctivae normal and no scleral icterus Conjunctiva: conjunctiva(e) normal Respiratory Common normals: no retractions, no use of accessory muscles and clear to auscultation bilaterally Auscultation: clear to auscultation bilaterally Other: Normal resp rate. Cardio Common normals: regular rate, S1 normal heart sound and S2 normal heart sound Rate: regular rate Heart sounds: S1 normal and S2 normal GI Common normals: non-tender Extremity Common normals: no clubbing, cyanosis or edema Neuro Common normals: moves all extremities Sensorium/orientation: somnolent Psych Other: Somnolent due to medications. Overnight she was agitated, combative and required multiple medications. Internal Medicine - PN: Obj Da Labs Labs: Laboratory Results - last 24 hr 05/21/24 05/22/24 05/22/24 22:45 06:28 12:02 WBC RBC Hgb Hct MCV MCH MCHC RDW Plt Count MPV Neut % (Auto) Lymph % (Auto) [place] % (Auto) Eos % (Auto) Baso % (Auto) Neut # (Auto) Lymph # (Auto) [place] # (Auto) Eos # (Auto) Baso # (Auto) Abs Immat Gran (auto) Imm/Tot Granulo (auto) Sodium Potassium Chloride Carbon Dioxide Anion Gap BUN Creatinine Est GFR ( Amer) Est GFR (Non-Af Amer) BUN/Creatinine Ratio Glucose Estimat Average Glucose 126 Hemoglobin A1c 6.0 Calcium Total Bilirubin AST ALT Alkaline Phosphatase Total Protein Albumin Globulin Albumin/Globulin Ratio Stl C. cayetanensis PCR Not Reportable Stool Rotavirus (PCR) Not Reportable Stool Adenovirus (PCR) Not Reportable Stool Astrovirus (PCR) Not Reportable Stool Campylobacter PCR Not Reportable Stool Cryptosporidium PCR Not Reportable St Sh/Enteroin Ecoli PCR Not Reportable Stl Enterotoxigenic E PCR Not Reportable Stool EPEC (PCR) Not Reportable Stl E. histolytica PCR Not Reportable Stool Giardia Lamblia PCR Not Reportable Stl P. shigelloides PCR Not Reportable Stool Salmonella PCR Not Reportable Stool Sapovirus (PCR) Not Reportable Stl Shiga-like Tx [address] Y.enterocolitica PCR Not Reportable Stl Vibrio cholerae PCR Not Reportable Stl Enteroaggr Ecoli PCR Not Reportable Stl Norovirus GI/GII PCR Not Reportable Specimen Source Not Reportable C. difficile Toxin A&B Not Reportable Vibrio Culture Not Reportable C. difficile Toxin PCR Negative POC Glucose 135 H 05/23/24 05:32 WBC 7.7 RBC 3.96 L Hgb 11.7 L Hct 35.5 L MCV 89.6 MCH 29.5 MCHC 33.0 RDW 14.0 Plt Count 266 MPV 11.0 Neut % (Auto) 67.2 Lymph % (Auto) 21.0 [place] % (Auto) 8.6 Eos % (Auto) 2.5 Baso % (Auto) 0.4 Neut # (Auto) 5.2 Lymph # (Auto) 1.6 [place] # (Auto) 0.7 Eos # (Auto) 0.2 Baso # (Auto) 0.0 Abs Immat Gran (auto) 0.02 Imm/Tot Granulo (auto) 0.3 Sodium 143 Potassium 3.3 L Chloride 109 H Carbon Dioxide 22.8 Anion Gap 14.5 BUN 3.0 L Creatinine 0.85 Est GFR ( Amer) >60 Est GFR (Non-Af Amer) >60 BUN/Creatinine Ratio 3.5 Glucose 166 H Estimat Average Glucose Hemoglobin A1c Calcium 8.3 L Total Bilirubin 0.4 AST 27 ALT 22 Alkaline Phosphatase 104 Total Protein 6.3 L Albumin 2.5 L Globulin 3.8 Albumin/Globulin Ratio 0.7 Stl C. cayetanensis PCR Stool Rotavirus (PCR) Stool Adenovirus (PCR) Stool Astrovirus (PCR) Stool Campylobacter PCR Stool Cryptosporidium PCR St Sh/Enteroin Ecoli PCR Stl Enterotoxigenic E PCR Stool EPEC (PCR) Stl E. histolytica PCR Stool Giardia Lamblia PCR Stl P. shigelloides PCR Stool Salmonella PCR Stool Sapovirus (PCR) Stl Shiga-like Tx [address]enterocolitica PCR Stl Vibrio cholerae PCR Stl Enteroaggr Ecoli PCR Stl Norovirus GI/GII PCR Specimen Source C. difficile Toxin A&B Vibrio Culture C. difficile Toxin PCR POC Glucose Urinary Catheter Management Urinary Catheter Management Urethral: Cath placed during this visit: yes Urethral indwelling: No Insertion date: 05/22/24 Insertion time: 02:50
--- NOTE | 2024-05-23 11:20 | SWNOTE1 ---
Important Message from [employer] reviewed and discussed with patient's daughter. Pt's daughter verbalized understanding and signed the form. Original given to patient's daughter and copy placed in patient?s chart. SW spoke with daughter in room. Pt's daughter voiced that pt's lives in the home as well. There is a nurse from the [place] that comes in 4 hours per day every day. [facility] in the home, hoping for 07/02 care. The goal is to keep pt and her at home. Daughter moved them up here from [place] 3 years ago as her sister with covid. Initially pt's was in worse health, but now she is. SW to stop back in to speak with pt and daughter about discharge plans once pt is done with MRI.
[2024-05-23 11:43] LABS: Glucometer 112 mg/dL (74-106)
[2024-05-23 12:06] LABS: Glucometer 122 mg/dL (74-106)
--- NOTE | 2024-05-23 12:19 | SWNOTE1 ---
Pt is back from MRI and was awake and talking. Pt was not sure what happened last night or this morning. She voiced she wanted to go home last night and thought her dog was here. She does not remember much else. Pt and daughter voiced she ordered some lunch. SW to check back later this afternoon.
--- NOTE | 2024-05-23 13:03 | P.DS_ITS ---
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 use: without fpc use Diabetes mellitus complication status: with hypoglycemia Diabetes mellitus complication detail: without coma Qualified Code(s): E11.649 - Type 2 diabetes mellitus with hypoglycemia without coma (6) COPD (chronic obstructive pulmonary disease): Qualifiers: COPD type: emphysema Emphysema type: centrilobular Qualified Code(s): J43.2 - Centrilobular emphysema (7) Pancreatic cancer metastasized to lung: (8) HLD (hyperlipidemia): Qualifiers: Hyperlipidemia type: unspecified Qualified Code(s): E78.5 - Hyperlipidemia, unspecified DS: Summary Hospital Course Hospital Course: 68-year-old female with past medical history of type 2 diabetes, on oral hypoglycemics was in her usual state of health when she was noted to have diaphoresis/confusion/blurring of vision along with tremors for which EMS was called in and she was found to have low blood glucose for which she was given IV dextrose and brought over to ED. She required multiple doses of IV dextrose 50 pushes the night of admission for recurrent symptomatic hypoglycemia even while she was on continuous D10 infusion requiring close monitoring of her blood glucose. She also received glucagon overnight for hypoglycemia. She was also hypotensive upon arrrival with BP as low as 80/30 likely from dehydration/h ypovolemia with BP IV fluids boluses. Her BP improved over the course of admission. She was switched to D5-0.45 NS subsequently and once her blood glucose were consistently at goal, we discontinued IV dextrose. Since then, she has been eating well, with POC glucose consistently above 100. The night before, she was very confused/agitated and combative requiring multiple medications to calm her down. MRI brain ordered to ensure there was no sig intracranial pathology - no evidence of stroke, mets. Her delirium was likely due to sundowning. She is back to her baseline mentation. Daughter is familiar with her acting this way in the past. Patient is medically stable for discharge. We recommend witholding oral hypoglycemics for her and monitoring blood glucose at home q12 and have her PCP review home blood glucose log and determine whether or not she will need to be on medications for T2 DM moving forward. Status at Discharge Overall status at discharge: patient is back to baseline Time Spent with Patient Time attestation: Total time spent providing and/or coordinating discharge services: Time spent: greater than 30 minutes Exam Constitutional Vital Signs, click to edit/add: Last Vital Signs Temp 97.6 F 05/23/24 12:12 Pulse 69 05/23/24 12:12 Resp 17 05/23/24 12:12 BP 103/64 05/23/24 12:12 Pulse Ox 94 L 05/23/24 12:12 O2 Del Method Room Air 05/23/24 12:12 DS: Data Data Completed and Pending Labs on day of discharge: Labs from last 24 hours 05/23/24 05/23/24 05/23/24 12:04 11:42 05:32 WBC 7.7 RBC 3.96 L Hgb 11.7 L Hct 35.5 L MCV 89.6 MCH 29.5 MCHC 33.0 RDW 14.0 Plt Count 266 MPV 11.0 Neut % (Auto) 67.2 Lymph % (Auto) 21.0 Wilkes % (Auto) 8.6 Eos % (Auto) 2.5 Baso % (Auto) 0.4 Neut # (Auto) 5.2 Lymph # (Auto) 1.6 Wilkes # (Auto) 0.7 Eos # (Auto) 0.2 Baso # (Auto) 0.0 Abs Immat Gran (auto) 0.02 Imm/Tot Granulo (auto) 0.3 Sodium 143 Potassium 3.3 L Chloride 109 H Carbon Dioxide 22.8 Anion Gap 14.5 BUN 3.0 L Creatinine 0.85 Est GFR ( Amer) >60 Est GFR (Non-Af Amer) >60 BUN/Creatinine Ratio 3.5 Glucose 166 H Estimat Average Glucose Hemoglobin A1c Calcium 8.3 L Total Bilirubin 0.4 AST 27 ALT 22 Alkaline Phosphatase 104 Total Protein 6.3 L Albumin 2.5 L Globulin 3.8 Albumin/Globulin Ratio 0.7 Stl C. cayetanensis PCR Stool Rotavirus (PCR) Stool Adenovirus (PCR) Stool Astrovirus (PCR) Stool Campylobacter PCR Stool Cryptosporidium PCR St Sh/Enteroin Ecoli PCR Stl Enterotoxigenic E PCR Stool EPEC (PCR) Stl E. histolytica PCR Stool Giardia Lamblia PCR Stl P. shigelloides PCR Stool Salmonella PCR Stool Sapovirus (PCR) Stl Shiga-like Tx [address] Y.enterocolitica PCR Stl Vibrio cholerae PCR Stl Enteroaggr Ecoli PCR Stl Norovirus GI/GII PCR Specimen Source C. difficile Toxin A&B Vibrio Culture C. difficile Toxin PCR POC Glucose 122 H 112 H 05/22/24 05/21/24 06:28 22:45 WBC RBC Hgb Hct MCV MCH MCHC RDW Plt Count MPV Neut % (Auto) Lymph % (Auto) Wilkes % (Auto) Eos % (Auto) Baso % (Auto) Neut # (Auto) Lymph # (Auto) Wilkes # (Auto) Eos # (Auto) Baso # (Auto) Abs Immat Gran (auto) Imm/Tot Granulo (auto) Sodium Potassium Chloride Carbon Dioxide Anion Gap BUN Creatinine Est GFR ( Amer) Est GFR (Non-Af Amer) BUN/Creatinine Ratio Glucose Estimat Average Glucose 126 Hemoglobin A1c 6.0 Calcium Total Bilirubin AST ALT Alkaline Phosphatase Total Protein Albumin Globulin Albumin/Globulin Ratio Stl C. cayetanensis PCR Not Reportable Stool Rotavirus (PCR) Not Reportable Stool Adenovirus (PCR) Not Reportable Stool Astrovirus (PCR) Not Reportable Stool Campylobacter PCR Not Reportable Stool Cryptosporidium PCR Not Reportable St Sh/Enteroin Ecoli PCR Not Reportable Stl Enterotoxigenic E PCR Not Reportable Stool EPEC (PCR) Not Reportable Stl E. histolytica PCR Not Reportable Stool Giardia Lamblia PCR Not Reportable Stl P. shigelloides PCR Not Reportable Stool Salmonella PCR Not Reportable Stool Sapovirus (PCR) Not Reportable Stl Shiga-like Tx [address] Y.enterocolitica PCR Not Reportable Stl Vibrio cholerae PCR Not Reportable Stl Enteroaggr Ecoli PCR Not Reportable Stl Norovirus GI/GII PCR Not Reportable Specimen Source Not Reportable C. difficile Toxin A&B Not Reportable Vibrio Culture Not Reportable C. difficile Toxin PCR Negative POC Glucose Discharge Plan Discharge Disposition: Home Health Service Condition: Fair Discharge Medications: Continued albuterol sulfate 90 mcg/actuation HFA aerosol inhaler 1 puff INHALATION Q4H PRN (Reason: shortness of breath or wheezing) atorvastatin 40 mg tablet 40 mg PO DAILY cyanocobalamin (vitamin B-12) 500 mcg tablet 500 mcg PO DAILY diazepam 10 mg tablet 10 mg PO BID PRN (Reason: anxiety) folic acid 1 mg tablet 1 mg PO DAILY hydrocodone-acetaminophen 5-325 mg tablet 1 tab PO Q6H PRN (Reason: pain) losartan 50 mg tablet 50 mg PO DAILY paroxetine HCl 30 mg tablet 30 mg PO DAILY Discontinued benzonatate 200 mg capsule 200 mg PO BID glimepiride 2 mg tablet 2 mg PO QAM metformin 500 mg tablet 500 mg PO BID cephalexin 500 mg capsule 500 mg PO TID 7 Days Qty: 21 0RF Patient Comments: 05/15/24-05/23/24 Activity: increase activity as tolerated Diet: advance to your usual diet Print Language: Montserratian Forms: Portal Instructions Follow Up Appointments: Follow up with Kelsie Oshea NP on 06/05/24 @ 1:00pm in [facility]
--- NOTE | 2024-05-23 13:43 | SWNOTE1 ---
SW came back in and spoke to pt and daughter. The doctor came back in and pt is discharged. SW offered to set up home health, but at this time with pt's follow ups on Tuesday the daughter does not feel it is necessary. Advised daughter to call pt's PCP if she decides she needs HH. Daughter in agreement.
--- NOTE | 2024-05-24 13:25 | CM.DCFOLLOWU ---
05/24- No answer, 1st attempt.
[2024-05-25 19:07] LABS: Ova + Parasite Exam Final report (.)
== END 2024-05-23 14:13 | disposition home or self-care (01) | DRG 638 ==
LOC: ER 20:42 → MS 21:35
PROVIDERS: Physician Assistant; Registered Nurse; Admitting Provider Internal Medicine; Emergency Provider Student in an Organized Health Care Education/Training Program; PCP Nurse Practitioner Adult Health; Visit Provider Internal Medicine
DX: E11.649 Type 2 diabetes mellitus with hypoglycemia without coma (principal); C25.9 Malignant neoplasm of pancreas, unspecified; C78.01 Secondary malignant neoplasm of right lung; R44.3 Hallucinations, unspecified; I95.9 Hypotension, unspecified; R41.0 Disorientation, unspecified; E86.0 Dehydration; E86.1 Hypovolemia; E78.5 Hyperlipidemia, unspecified; J44.9 Chronic obstructive pulmonary disease, unspecified; Z79.84 Long term (current) use of oral hypoglycemic drugs; Z79.899 Other long term (current) drug therapy; Z88.5 Allergy status to narcotic agent; Z91.041 Radiographic dye allergy status
CPT/HCPCS: 36415; 51702; 51798; 70450; 70551; 71045; 74176; 80053; 80320; 81001; 81003; 82800; 82948; 83036; 83605; 83735; 84443; 84484; 85025; 85610; 87045; 87046; 87086; 87177; 87209; 87427; 87493; 87502; 87804; 87811; 93005; 94761; 96361; 96374; 96376; 99285; G0328; G0378; J0131; J1610; J1650; J2060; J2405; J3475; J3486

== ENCOUNTER 2024-09-26 18:11 | Inpatient (IN) | payer MEDICARE, SELFPAY ==
[2024-09-26] VITALS (32 sets, daily range): BP systolic 111–123; BP diastolic 52–72; PULSE 69–91; TEMP 36.4–36.9; O2SAT 83–97; BMI 21.9
--- NOTE | 2024-09-26 18:13 | PC.NURSE ---
denies chest pain
--- NOTE | 2024-09-26 18:17 | ECG_ITS ---
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 Measurements Intervals Donnelly Rate: 78 P: 84 OR: 134 QRS: 73 QRSD: 88 T: 257 QT: 374 QTc: 407 Interpretive Statements 1100 Sinus rhythm [address] depression 4364 Twave abnormality, possible anterolateral ischemia 4664 Twave abnormality, possible inferior ischemia 6120 Possible right atrial enlargement 9150 abnormal ECG Compared to ECG 05/21/2024 17:22:10 No significant changes Electronically Signed On 09-26-2024 18:42:34 EDT by LÓPEZ YOUNGER M.D.
[2024-09-26 18:25] LABS: Basophils Percent Auto 0.3 % (0.2-2.0); Eosinophils Absolute Auto 0.4 10^3/uL (0.0-0.7); Eosinophils Percent Auto 3.5 % (0.9-7.0); Immature Granulocytes Abs Auto 0.03 10^3/uL (0.00-0.03); Immature Granulocytes Pct Auto 0.3 % (0.0-0.5); Lymphocytes Absolute Auto 3.3 10^3/uL (1.2-3.8); Lymphocytes Percent Auto 32.7 % (20.5-60.0); Mean Corpuscular HGB Conc 32.4 g/dL (29.9-35.2); Mean Corpuscular Hemoglobin 28.6 pg (26.7-34.0); Mean Corpuscular Volume 88.1 fL (81.0-99.0); Mean Platelet Volume 10.1 fL (9.5-13.5); Monocytes Absolute Auto 0.7 10^3/uL (0.3-0.8); Monocytes Percent Auto 6.7 % (1.7-12.0); Neutrophils Absolute Auto 5.7 10^3/uL (1.4-6.5); Neutrophils Percent Auto 56.5 % (43.0-75.0); PCO2 VBG 54.1 mmHg (40.0-52.0); Platelet Count 326 10^3/uL (150-450); Red Cell Distribution Width 13.9 % (11.0-15.0); White Blood Count 10.1 10^3/uL (4.0-11.0); pH VBG 7.421 (7.330-7.430)
[2024-09-26] MEDS: CEFTRIAXONE 1,000 MG in 0.9 % SODIUM CHLORIDE 50 ML 100 MG IV (18:32)
[2024-09-26] MEDS: MAGNESIUM SULFATE IN WATER 2 GM/50 ML PREMIX IV (18:32)
--- NOTE | 2024-09-26 18:35 | ED_ITS ---
HPI - SOB/Dyspnea General Chief Complaint: Shortness of Breath/Dyspnea Stated Complaint: WEAKNESS Time Seen by Provider: 09/26/24 18:14 Source: patient Mode of arrival: ambulance History of Present Illness HPI Narrative: The patient is a 69-year-old female who presents to the emergency department with shortness of breath. Shortness of breath is worse with exertion. It has been getting worse for about a week now but has been more pronounced over the last 48 hours. Patient's grandson went over today to look after her and said that just walking a short distance caused her to be markedly short of breath. Patient does wear home oxygen. She usually wears 1 L/min. However after she went to the bathroom she was in respiratory distress and they had turned her up to 6 L/min to get her out of distress. Patient has not had any fever or chills. No sick contacts or recent travel. Patient does not have myalgias. Patient does not have any change in her cough. She is wheezing profusely which at times can be audible without a stethoscope. Patient does not have any chest pain. Patient does not have any sore throat. Her cough is not any worse than usual there is no production. Patient does still smoke. She states that she only smokes about 2 cigarettes/day. Patient's is currently intubated at [facility] for the past 3 months. He also is a smoker. Her symptoms are moderate in severity. Exertion makes them worse. Nothing makes them better. She does have a nebulizer at home but was in too much distress to do a breathing treatment and called 911. 911 arrived give the patient a DuoNeb treatment and Solu-Medrol prior to the patient even arriving to the hospital. Related Data Home Medications ?Medication ?Instructions ?Recorded ?Confirmed albuterol sulfate 90 mcg/actuation 1 puff inhalation Q4H PRN 05/21/24 09/26/24 aerosol inhaler shortness of breath or wheezing atorvastatin 40 mg tablet 40 mg PO DAILY 05/21/24 09/26/24 diazepam 10 mg tablet 10 mg PO BID PRN anxiety 05/21/24 09/26/24 losartan 50 mg tablet 50 mg PO DAILY 05/21/24 09/26/24 benzonatate 100 mg capsule 200 mg PO BID 09/26/24 09/26/24 bumetanide 1 mg tablet 1 mg PO QDAY 09/26/24 09/26/24 donepezil 10 mg tablet 10 mg PO QDAY 09/26/24 09/26/24 isosorbide mononitrate 30 mg 30 mg PO QDAY 09/26/24 09/26/24 tablet,extended release 24 hr metformin 500 mg tablet 500 mg PO QDAY 09/26/24 09/26/24 metoprolol succinate 50 mg 50 mg PO QDAY 09/26/24 09/26/24 tablet,extended release 24 hr mirtazapine 30 mg tablet 30 mg PO QDAY 09/26/24 09/26/24 paroxetine HCl 40 mg tablet 40 mg PO QDAY 09/26/24 09/26/24 Allergies Allergy/AdvReac Type Severity Reaction Status Date / Time codeine Allergy Severe Hives Verified 05/21/24 17:12 Iodinated Contrast Media Allergy Severe Hives Verified 05/21/24 17:12 Review of Systems ROS Narrative 10 Systems were reviewed, and unless not ed in the HPI, all other systems are reviewed, unremarkable, or noncontributory. PFS PFS Medical History Pancreatic cancer metastasized to lung ?C25.9 - Malignant neoplasm of pancreas, unspecified (ICD-10) ?C78.00 - Secondary malignant neoplasm of unspecified lung (ICD-10) HLD (hyperlipidemia) ?E78.5 - Hyperlipidemia, unspecified (ICD-10) Lung cancer ?C34.90 - Malignant neoplasm of unspecified part of unspecified bronchus or lung (ICD-10) Hypotension ?I95.9 - Hypotension, unspecified (ICD-10) Emphysema of lung ?J43.9 - Emphysema, unspecified (ICD-10) Diabetes ?E11.9 - Type 2 diabetes mellitus without complications (ICD-10) COPD (chronic obstructive pulmonary disease) ?J44.9 - Chronic obstructive pulmonary disease, unspecified (ICD-10) Social History Highest level of school completed/degree received: 7th grade Little interest or pleasure in doing things: nearly every day Feeling down, depressed, or hopeless: nearly every day Exam Narrative Exam Narrative: Prior to examining the patient, I have washed with hospital approved and provided Antiseptic Hand Trimming Department Blocker and have also applied gloves.? Prior to touching the patient, I asked for consent to examine the patient.? General: Alert and oriented, well nourished, moderate respiratory distress. Eye: PERRL, EOMI, normal conjunctiva. HENT: Normocephalic, normal hearing, moist oral mucosa, no scleral icterus, no sinus tenderness. Neck: Supple, non-tender, no carotid bruits, no JVD, no lymphadenopathy. Lungs: Clear to auscultation and percussion, non-labored respiration. Tachypnea, conversational dyspnea, profound inspiratory and expiratory wheezing. Heart: Normal rate, regular rhythm, no murmur, gallop or edema. Abdomen: Soft, non-tender, non-distended, normal bowel sounds, no masses. Musculoskeletal: Normal range of motion and strength, no tenderness or swelling. Skin: Skin is warm, dry and pink, no rashes or lesions. Neurologic: Awake, alert, and oriented X3, CN II-XII intact. Psychiatric: Cooperative, appropriate mood and affect.? Following the conclusion of the examination, I have washed my hands thoroughly after removing examination gloves. Constitutional Vital Signs, click to edit/add: Last Vital Signs Temp 98.0 F 09/27/24 04:00 Pulse 69 09/27/24 04:00 Resp 16 09/27/24 03:42 BP 157/77 H 09/27/24 04:00 Pulse Ox 91 L 09/27/24 04:00 O2 Del Method Nasal Cannula 09/27/24 04:00 O2 Flow Rate 4 09/27/24 04:00 Course Reevaluation(s) Reevaluation #1: I helped the patient get up from the bed to the bedside commode which was literally next to the bed. The patient had profound shortness of breath. We did not remove her oxygen for this maneuver and she kept. Consultations Consultation #1: I discussed the case with Wilma who did agree to accept the admission of the patient continue treatment of her COPD exacerbation. Vital Signs Vital signs: Vital Signs Temperature 97.6 F 09/26/24 18:05 Pulse Rate 74 09/26/24 18:05 Respiratory Rate 25 H 09/26/24 18:05 Blood Pressure 111/52 09/26/24 18:05 Pulse Oximetry 85 L 09/26/24 18:05 Oxygen Delivery Method Room Air 09/26/24 18:05 Temperature 98.0 F 09/27/24 04:00 Pulse Rate 69 09/27/24 04:00 Respiratory Rate 16 09/27/24 03:42 Blood Pressure 157/77 H 09/27/24 04:00 Pulse Oximetry 91 L 09/27/24 04:00 Oxygen Delivery Method Nasal Cannula 09/27/24 04:00 Oxygen Delivery Flow Rate 4 09/27/24 04:00 MDM - SOB/Dyspnea MDM Narrative Medical decision making narrative: In summary the patient is a 69-year-old female presenting to the emergency department after having received a DuoNeb treatment and Solu-Medrol presenting for worsening shortness of breath secondary to COPD exacerbation. Patient does not appear septic in presentation but does have respiratory distress. Patient received albuterol 5 mg, which is 2 treatments, while in the ER. She received a normal saline bolus as well as magnesium 2 g by mouth. Patient did have her ox ygen weaned down to 4 L/min and tolerated that well. She still is requiring a hefty increase in her baseline oxygen load. She is can require numerous nebulized breathing treatments and she should have additional intervenous Solu- Medrol doses. Differential Diagnosis Differential diagnosis: Likely acute exacerbation of chronic obstructive airways disease, congestive heart failure, community acquired pneumonia, asthma with exacerbation and pulmonary embolism Medical Records Attestation: I reviewed the patient's medical records. Medical records narrative: The patient was last admitted to the hospital and discharged May 23, 2024. At that time the patient was seen for hypotension secondary to hypovolemia associated with delirium. Patient was not seen at that time for any type of sepsis or respiratory problem. Lab Data Attestation: I reviewed the patient's lab results. Lab results narrative: Patient has no evidence of anemia or leukocytosis. Comprehensive metabolic panel is unremarkable for any electrolyte, kidney, or liver dysfunction, less her potassium that was 3.0 and was supplemented with oral potassium 50 mill equivalents. Lactic acid is mildly elevated at 2.3 which may be secondary to respiratory distress. C-reactive protein is elevated at 3. Troponin is negative. Labs: Lab Results 09/26/24 Range/Units 18:10 WBC 10.1 (4.0-11.0) 10^3/uL RBC 4.20 (4.20-5.40) 10^6/uL Hgb 12.0 (12.0-16.0) g/dL Hct 37.0 (36.0-48.0) % MCV 88.1 (81.0-99.0) fL MCH 28.6 (26.7-34.0) pg MCHC 32.4 (29.9-35.2) g/dL RDW 13.9 (11.0-15.0) % Plt Count 326 (150-450) 10^3/uL MPV 10.1 (9.5-13.5) fL Neut % (Auto) 56.5 (43.0-75.0) % Lymph % (Auto) 32.7 (20.5-60.0) % Gaston % (Auto) 6.7 (1.7-12.0) % Eos % (Auto) 3.5 (0.9-7.0) % Baso % (Auto) 0.3 (0.2-2.0) % Neut # (Auto) 5.7 (1.4-6.5) 10^3/uL Lymph # (Auto) 3.3 (1.2-3.8) 10^3/uL Gaston # (Auto) 0.7 (0.3-0.8) 10^3/uL Eos # (Auto) 0.4 (0.0-0.7) 10^3/uL Baso # (Auto) 0.0 (0.0-0.1) 10^3/uL Abs Immat Gran (auto) 0.03 (0.00-0.03) 10^3/uL Imm/Tot Granulo (auto) 0.3 (0.0-0.5) % VBG pH 7.421 (7.330-7.430) VBG pCO2 54.1 H (40.0-52.0) mmHg Sodium 140 (136-145) mmol/L Potassium 3.0 L (3.5-5.1) mmol/L Chloride 99 (98-107) mmol/L Carbon Dioxide 33.2 H (21.0-32.0) mmol/L Anion Gap 10.8 BUN 6.0 L (7.0-18.0) mg/dL Creatinine 0.96 (0.55-1.02) mg/dL Est GFR ( Amer) >60 (>=60 mL/min/1.73m^2) Est GFR (Non-Af Amer) 57 L (>=60 mL/min/1.73m^2) BUN/Creatinine Ratio 6.3 Glucose 120 H (74-106) mg/dL Lactate 2.3 H* (0.4-2.0) mmol/L Calcium 9.0 (8.5-10.1) mg/dL Magnesium 1.6 L (1.8-2.4) mg/dL Total Bilirubin 0.2 (0.2-1.0) mg/dL AST 25 (15-37) U/L ALT 17 (14-59) U/L Alkaline Phosphatase 92 (46-116) U/L Troponin I High Sens 5.5 (4.0-51.3) pg/mL C-Reactive Protein 3.01 H (<=0.50) mg/dL Total Protein 8.0 (6.4-8.2) g/dL Albumin 3.5 (3.4-5.0) g/dL Globulin 4.5 g/dL Albumin/Globulin Ratio 0.8 Imaging Data Chest x-ray: Attestation: I personally reviewed and interpreted this imaging study as follows: My impression: Chest x-ray reveals no obvious cardiopulmonary process. ECG Data Attestation: I personally reviewed and interpreted this ECG as follows: ECG interpretation date: 09/26/24 ECG interpretation time: 18:10 Prior ECG tracings: available for review (I reviewed the EKG from May 21, 2024. There were at that time lateral T wave inversions. But the inferior T wave inversions seen today are new.) Ischemic changes: t wave inversions Interpretation: Twelve-lead EKG reveals a sinus rhythm with a ventricular of 78 bpm. The RI interval and QRS duration within normal limits. QTc is not prolonged. The patient has poor R wave progression in the septal leads. The patient does have pronounced P waves which are significant for right atrial enlargement. The patient has T waves that are inverted diffusely in the inferolateral leads. Summary: Abnormal EKG. Smoking Cessation Patient Acknowledges Need for Cessation: Yes Critical Care Time Critical Care Time Critical Care Time: Yes Total Critical Care Time: 37 Attestation: This was needed for the treatment of prevention of clinically significant and life-threatening respiratory failure. He required reviewing that she had a DuoNeb treatment and Solu-Medrol in the field but then it required the additional breathing treatments, titration of oxygen, intervenous fluids and intravenous magnesium. Without hernandez intervention the patient could have succumbed to her COPD exacerbation. Discharge Plan Discharge Chief Complaint: Shortness of Breath/Dyspnea Clinical Impression: COPD exacerbation, Hypomagnesemia, Hypokalemia, Hypoxia, Tobacco abuse Patient Disposition: Admitted As Inpatient Time of Disposition Decision: 19:50 Condition: Fair Discharge Date/Time: 09/26/24 21:25
[2024-09-26 18:43] LABS: Alanine Aminotransferase 17 U/L (14-59); Albumin Globulin Ratio 0.8; Albumin Level 3.5 g/dL (3.4-5.0); Alkaline Phosphatase 92 U/L (46-116); Anion Gap 10.8; Aspartate Amino Transferase 25 U/L (15-37); Bilirubin Total 0.2 mg/dL (0.2-1.0); Carbon Dioxide 33.2 mmol/L (21.0-32.0); Chloride 99 mmol/L (98-107); Estimated GFR (African America >60 (>=60 mL/min/1.73m^2); Estimated GFR (Non-African Ame 57 (>=60 mL/min/1.73m^2); Globulin 4.5 g/dL; Glucose 120 mg/dL (74-106); Magnesium 1.6 mg/dL (1.8-2.4); Sodium 140 mmol/L (136-145); Troponin I High Sensitivity 5.5 pg/mL (4.0-51.3)
[2024-09-26 18:44] LABS: BUN Creatinine Ratio 6.3
[2024-09-26 18:45] LABS: Lactate/Lactic Acid 2.3 mmol/L (0.4-2.0)
[2024-09-26] MEDS: LACTATED RINGER'S SOLUTION 1,000 ML 999 ML IV (18:49)
[2024-09-26] MEDS: AZITHROMYCIN 500 MG in 0.9 % SODIUM CHLORIDE 250 ML 250 MG IV (19:19)
[2024-09-26] MEDS: ALBUTEROL SULFATE 2.5 MG/3 ML VIAL NEB IH (19:25)
[2024-09-26] MEDS: POTASSIUM BICARBONATE/CIT 25 MEQ TABLET EFF 50 MEQ PO (20:28)
--- OUTSIDE RECORDS SUMMARY | 2024-09-26 21:34 | XMS_ITS | CCD ---
Author Organization [facility] Care Team Providers Care Central Office Equipment Installer Name Role Phone NO FAMILY, PHYSICIAN Primary Care Provider Unava ilable ANTHONY Bartholomew Emergency Provider Spasic, GRAPPLE YARDER OPERATOR-C Vicky E Attending Provider Spasic, GRAPPLE YARDER OPERATOR-C Vicky E Primary Care Provider Spasic, GRAPPLE YARDER OPERATOR-C Vicky E Primary Care Provider Spasic, GRAPPLE YARDER OPERATOR-C Vicky E Attending Provider Spasic, GRAPPLE YARDER OPERATOR-C Vicky E Attending Provider Spasic, GRAPPLE YARDER OPERATOR-C Vicky E Primary Care Provider Spasic, GRAPPLE YARDER OPERATOR-C Vicky E Referring Provider DO Tomi Sandra II Attending Provider DO Ragini Adams Attending Provider Spasic, GRAPPLE YARDER OPERATOR-C Vicky E Attending Provider ANTHONY Bartholomew Emergency Provider [phone] MD Tahir Amin Admit Provider MD Tahir Amin Attending Provider MD Fidencio Alvarez Attending Provider Boaz CHAVEZ MD, Timothy J Primary Care Provide r Spasic GRAPPLE YARDER OPERATOR-C, Vicky E Primary Care Provider Spasic GRAPPLE YARDER OPERATOR-C, Vicky E Attending Provider Spasic GRAPPLE YARDER OPERATOR-C, Vicky Nunez Referring Provider Tomi Sandra DO Attending Provider [phone] Ragini Adams DO Attending Provider Katelyn Bartholomew APRN Emergency Provider Brennan CONTRERAS, Tahir Garcia Admit Provider [phone] Kim CONTRERAS, Fidencio Attending Provider Polo Bosch MD Primary Care Provider Spasic GRAPPLE YARDER OPERATOR-C, Vicky Nunez Primary Care Provider Spasic GRAPPLE YARDER OPERATOR-C, Vicky Nunez Referring Provider Robert Cuevas DO Attending Provider Spasic GRAPPLE YARDER OPERATOR-C, Vicky Nunez Attending Provider Tomi Sandra DO Attending Provider [phone] Tomi Sandra DO Attending Provider Spasic GRAPPLE YARDER OPERATOR-C, Vicky Nunez Primary Care Provider King Weinberg DO Emergency Provider TOMI SANDRA II Primary Care Unavaila ble RADAMES, LOCO Consulting Unavailable EDWARD, RUSTY S Admitting Unavailable RADAMES, LOCO Attending Unavailable SABINO DAVILA S Consulting Unavailable SOFI EM Consulting Unavailable PUJA FERREIRA Consulting Unavailable Spasic STEWARD/STEWARDESS DINING ROOM - RESTORATION OFFICER, Vicky Nunez Primary Care Provider Spasic GRAPPLE YARDER OPERATOR-C, Vicky Nunez Primary Care Provider [phone] Spasic GRAPPLE YARDER OPERATOR-C, Vicky Nunez Referring Provider SENIA SWEENEY Attending Unavailable SPASIC, VICKY E Primary Care Unavailable TOMI SANDRA II Primary Care Unavaila ble MARY FORD Attending Unavailable MARY FORD Admitting Unavailable Spasic GRAPPLE YARDER OPERATOR-C, Vicky Nunez Primary Care Provider Tomi Sandra DO Attending Provider Spasic GRAPPLE YARDER OPERATOR-CVicky Referring Provider King Weinberg DO Emergency Provider Spasic GRAPPLE YARDER OPERATOR-CVicky Attending Provider [phone] [facility], [facility] Primary [facility] ider Spasic, Vicky E Primary Care Unavailable Spasic, Vicky E Referring Unavailable Mast, Robert Attending Unavailable Mast, Robert Admitting Unavailable Spasic, Vicky E Primary Care Unavailable Adamowicz II, Tomi Morales Attending Unavaila ble Adamowicz II, Tomi Morales Admitting Unavaila ble Spasic, Vicky E Attending Unavailable [facility] Primary Care U navailable Spasic, Vicky E Admitting Unavailable Spasic, Vicky E Attending Unavailable Spasic, Vicky E Primary Care Unavailable Spasic, Vicky E Admitting Unavailable Spasic, Vicky E Primary Care Unavailable Spasic, Vicky E Referring Unavailable Geraldowicz II, Tomi Morales Attending Unavaila ble Adamowicz II, Tomi Morales Admitting Unavaila ble King Weinberg Admitting Unavailable Spasic, Vicky Nunez Primary Care Unavailable King Weinberg Attending Unavailable Spasic, Vicky E Primary Care Unavailable Spasic, Vicky E Attending Unavailable Spasic, Vicky E Admitting Unavailable Spasic, Vicky Nunez Admitting Unavailable Spasic, Vicky Nunez Attending Unavailable SpasicVicky Attending Unavailable Spasic, Vicky E Admitting Unavailable Spasic, Vicky E Primary Care Unavailable Spasic, Vicky E Attending Unavailable Spasic, Vicky E Admitting Unavailable NO FAMILY, PHYSICIAN Primary Care Unavailable EriceKatelyn N Attending Unavailable SafalbereKatelyn Admitting Unavailable Spasic, Vicky E Primary Care Unavailable Ragini Adams Attending Unavailable LyRagini Admitting Unavailable Saffle, Katelyn N Admitting Unavailable Spasic, Vicky E Primary Care Unavailable Saffle, Katelyn N Attending Unavailable SpasicVicky E Attending Unavailable Spasic, Vicky E Primary Care Unavailable Spasic, Vicky E Admitting Unavailable Spasic, Vicky E Attending Unavailable Spasic, Vicky E Admitting Unavailable Vicky Oshea Attending Unavailable Vicky Oshea Admitting Unavailable Vicky Oshea Attending Unavailable Vicky Oshea Primary Care Unavailable Vicky Oshea Admitting Unavailable Vicky Oshea Primary Care Unavailable Tahir Amin Admitting Unava Fidencio Cole Attending Unavailable Vicky Oshea Attending Unavailable Vicky Oshea Primary Care Unavailable Vicky Oshea Admitting Unavailable Allergies Allergy Classification Reported Allergen(s) Allergy Type Date of Onset Reaction(s) Facility (20 sources) Codeine; Translations: [codeine] Drug Allergy 09-27-2023 Rash [facility] (20 sources) Gadolinium-Conta ining Contrast Medi; Translations: [Gadolinium-Cont aining Contrast Medi] Allergy to substance 09-27-2023 Itching [facility] (20 sources) Iodinated Contrast Media; Translations: [Iodinated Contrast Media] Allergy to substance 09-27-2023 [facility] Medications Current Medications Medication Drug Class(es) Dates Sig (Normalized) Sig (Original) Acetaminophen (1 source) Start: 08-28-2024 acetaminophen (TYLENOL) tablet 650 mg albuterol 0.83 mg/ml inhalation solution (20 sources) beta2-Adrenergic Agonist Start: 09-05-2024 albuterol (PROVENTIL) (2.5 MG/3ML) 0.083% nebulizer solution Take 3 mLs by nebulization every 6 hours as needed for Wheezing 120 each 1 09/05/2024 Active Start: 08-28-2024 2.5 mg, Nebuli zation, 4 TIMES DAILY RESP, First dose on Tue08/28/24 at 2000, Until Discontinued, Initiate RT Bronchodilator Protocol: Yes - Inpatient Protocol Start: 08-28-2024 Albuterol Sulf ate (Ventolin Hfa) 90 mcg/actuation HFA aerosol inhaler Active 1 INH INHALATION EVERY 4-6 HOURS as needed for bronchospasm 6.7 August 28, 2024 1:00am Start: 10-22-2023 Albuterol Sulf ate 90 mcg/actuation HFA aerosol inhaler Active 2 INH INHALATION Q4H as needed for wheezing October 22, 2023 12:00am take 1 puff(s) by mo uth every four hours as needed albuterol sulfate HFA (PROVENTIL;VENTOLIN;PROAIR) 108 (90 Base) MCG/ACT inhaler INHALE 1 PUFF BY MOUTH EVERY 4 HOURS NEEDED Active aspirin 81 mg delayed release oral tablet (2 sources) Platelet Aggregation Inhibitor, Nonsteroidal Anti-inflammatory Drug Start: 09-03-2024 take 1 tablet by mouth once daily aspirin 81 MG EC tablet Take 1 tablet by mouth daily 30 tablet 09/03/2024 Active atorvastatin 40 mg oral tablet (20 sources) HMG-CoA Reductase Inhibitor Start: 04-03-2024 take 1 tablet by mouth once daily at bedtime Atorvastatin 40 mg tablet Active 40 MG PO Daily at bedtime April 03, 2024 12:00am Start: 03-26-2024 End: 04-03-2024 take 2 tablets by mouth once daily Atorvastatin 20 mg tablet Discontinued 40 MG PO Daily March 26, 2024 11:27am April 03, 2024 10:56am Start: 03-26-2024 End: 04-03-2024 take 40 mg by mouth once daily Atorvastatin Discontinu ed 40 MG PO Daily March 26, 2024 11:27am April 03, 2024 10:56am Start: 10-22-2023 End: 03-26-2024 take 1 tablet by mouth once daily Atorvastatin 20 mg tablet Discontinued 20 MG PO Daily October 22, 2023 12:00am March 26, 2024 11:27am bismuth subsalicylate 17.5 mg/ml oral suspension (8 sources) Bismuth Start: 05-25-2024 Bismuth Subsal icylate (Pepto-Bismol) 262 mg/15 mL suspension Active 524 MG PO .prn as needed May 25, 2024 1:00am do not exceed 8 doses in a 24 hour period budesonide-formotero l (SYMBICORT) 160-4.5 MCG/ACT inhaler 2 puff (1 source) Start: 08-28-2024 budesonide-for moterol (SYMBICORT) 160-4.5 MCG/ACT inhaler 2 puff bumetanide 1 mg oral tablet (3 sources) Loop Diuretic Start: 09-04-2024 take 1 tablet by mouth once daily bumetanide (BUMEX) 1 MG tablet Take 1 tablet by mouth daily 30 tablet 09/04/2024 Active Start: 09-02-2024 take 1 mg by mouth once daily 1 mg, Oral, DAILY, First dose on 09/02/24 at 0900, Until Discontinued cholecalciferol 0.125 mg oral capsule (12 sources) Vitamin D Start: 05-12-2024 take 1 capsule by mouth once daily Cholecalciferol (Vitamin D3) 125 mcg (5,000 unit) Capsule Active 125 MCG PO Daily May 12, 2024 12:00am take 1 capsule by mouth once jayden ly vitamin D 50 MCG (2000 UT) CAPS capsule Take 1 capsule by mouth daily Active 30 actuat fluticasone furoate 0.1 mg/actuat / umeclidinium 0.0625 mg/actuat / vilanterol 0.025 mg/actuat dry powder inhaler (2 sources) Anticholinergic, Corticosteroid, beta2-Adrenergic Agonist Start: 10-22-2023 take 1 puff(s) by inhalation once daily gnwstthnpkp-hdnxacocv-xykphg (TRELEGY ELLIPTA) 100-62.5-25 MCG/ACT AEPB inhaler Inhale 1 puff into the lungs daily 10/22/2023 Active fluticasone-um eclidin-vilant (TRELEGY ELLIPTA) 200-62.5-25 MCG/ACT AEPB inhaler (1 source) Start: 10-22-2023 yvutrsfjipb-wcutbbxsk-vzbvtm (TRELEGY ELLIPTA) 200-62.5-25 MCG/ACT AEPB inhaler Daily 10/22/2023 Active folic acid 1 mg oral tablet (9 sources) Start: 05-12-2024 take 1 tablet by mouth once daily Folic Acid 1 mg Tablet Active 1 MG PO Daily May 12, 2024 12:00am gabapentin 300 mg oral capsule (20 sources) Anti-epileptic Agent Start: 05-12-2024 take 1 capsule by mouth twice daily Gabapentin 300 mg capsule Active 300 MG PO Twice daily May 12, 2024 10:44am Start: 09-27-2023 End: 05-12-2024 take 1 capsule by mouth three times daily Gabapentin 300 mg capsule Discontinued 300 MG PO Three times daily September 27, 2023 12:00am May 12, 2024 10:46am glimepiride 2 mg oral tablet (16 sources) Sulfonylurea Start: 03-26-2024 End: 09-03-2024 take 1 tablet by mouth once daily Glimepiride 2 mg tablet Active 2 MG PO Daily March 26, 2024 12:00am glucagon (rdna) 1 mg injection (1 source) Antihypoglycemic Agent Start: 08-28-2024 1 mg, SubCUTAneous, PRN, Starting on Tue08/28/24 at 1555, Until Discontinued, Low blood sugar, Blood glucose LESS THAN 70 mg/dL and patient NOT ALERT or NPO and does not have IV access., After administration, attempt intravenous access and start dextrose 10% at 100 mL/hr. Repeat blood glucose in 15 minutes x 2 and notify provider. Reconstitute powder for injection by adding 1 mL of pasteuriser operator-suppli ed sterile diluent or sterile water for injection to a vial containing 1 mg of the drug, to provide solutions containing 1 mg/mL. Shake vial gently to dissolve. Glucose (3 sources) Start: 08-28-2024 IntraVENous, at 100 mL/hr, CONTINUOUS PRN, if blood glucose remains LESS THAN 70 mg/dL after 2 dextrose 10% intravenous boluses or administration of glucagon, Starting on Tue08/28/24 at 1555, If blood glucose fails to stabilize after 2 dextrose 10% intravenous boluses or glucagon administration, start dextrose 10% infusion at 100 mL/hour and repeat blood glucose at 30 and 60 minutes. If blood glucose is GREATER THAN 70 mg/dL after 60 minutes, discontinue dextrose 10% infusion. Start: 08-28-2024 dextrose bolus 10% 125 mL Start: 08-28-2024 16 g (4 tablet ), Oral, PRN, Starting on Tue08/28/24 at 1555, Until Discontinued, Low blood sugar, If blood glucose is LESS THAN 70 mg/dL and patient is alert and tolerating oral. Give 4 tablets (16g) Repeat blood glucose in 15 minutes. If blood glucose is LESS THAN 70 mg/dL, repeat treatment and recheck blood glucose in 15 minutes x 2. If blood glucose remains LESS THAN 70 mg/dL, notify provider. 24 hr isosorbide mononitrate 30 mg extended release oral tablet (3 sources) Nitrate Vasodilator Start: 09-04-2024 take 1 tablet by mouth once daily isosorbide mononitrate (IMDUR) 30 MG extended release tablet Take 1 tablet by mouth daily 30 tablet 09/04/2024 Active Start: 08-31-2024 take 30 mg by mouth once daily 30 mg, Oral, DAILY, First dose on Tue08/31/24 at 1015, Until Discontinued, Do not crush or chew. losartan potassium 50 mg oral tablet (15 sources) Angiotensin 2 Receptor Luna Start: 09-04-2024 take 50 mg by mouth once daily 50 mg, Oral, DAILY, First dose (after last modification) on Tue09/04/24 at 0900, Until Discontinued Start: 08-31-2024 End: 09-03-2024 take 1 dose by mouth once 25 mg, Oral, Once, 1 dose, O n Tue09/03/24 at 0930 Start: 05-12-2024 take 1 tablet by mouth once da alek Losartan 50 mg Tablet Active 50 MG PO Daily May 12, 2024 12:00am meclizine hydrochloride 25 mg chewable tablet (10 sources) Antiemetic Start: 05-10-2024 take 1 tablet by mouth once daily Meclizine (Antivert) 25 mg tablet,chewable Active 25 MG PO Daily May 10, 2024 12:00am 24 hr metoprolol succinate 100 mg extended release oral tablet (20 sources) beta-Adrenergic Luna Start: 09-03-2024 take 0.5 tablet by mouth once daily metoprolol succinate (TOPROL XL) 100 MG extended release tablet Take 0.5 tablets by mouth daily 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 Start: 09-27-2023 End: 09-03-2024 take 1 tablet by mouth once daily Metoprolol Succinate (Toprol Xl) 100 mg tablet extended release 24 hr Discontinued 100 MG PO Daily September 27, 2023 12:00am May 12, 2024 10:46am take 1 tablet by el th once daily metoprolol succinate (TOPROL XL) 50 MG extended release tablet Take 1 tablet by mouth daily Active 24 hr nicotine 0.875 mg/hr transdermal system (3 sources) Cholinergic Nicotinic Agonist Start: 09-04-2024 apply 1 dose transdermal route once daily nicotine (NICODERM CQ) 21 MG/24HR Place 1 patch onto the skin daily 30 patch 09/04/2024 Active Start: 08-28-2024 apply 1 dose transde rmal route once daily at bedtime 1 patch, TransDERmal, Administer over 24 Hours, DAILY, First dose on Tue08/28/24 at 1630, Apply new patch to nonhairy, clean, dry skin on the upper body or upper outer arm. Rotate patch sites. Notify pharmacy if patient or provider prefers patch to be removed at bedtime and replaced in the morning. Hazardous Medication -- Refer to facility policy for handling and disposal. OLANZapine 10 mg disintegrating oral tablet (1 source) Atypical Antipsychotic Start: 08-28-2024 ondansetron (ZOFRAN-ODT) disintegrating tablet 4 mg (1 source) Start: 08-28-2024 ondansetron (ZOFRAN-ODT) disintegrating tablet 4 mg polyethylene glycol [id number] mg powder for oral solution (1 source) Osmotic Laxative Start: 08-28-2024 predniSONE 20 mg oral tablet (20 sources) Start: 09-03-2024 End: 09-08-2024 40 mg, Oral, DAILY, 5 doses, First dose on Tue09/03/24 at 2100, Last dose on Tue09/07/24 at 0900 Start: 09-03-2024 End: 09-10-2024 take 2 tablets by mouth once daily predniSONE (DELTASONE) 20 MG tablet Take 2 tablets by mouth daily for 5 days 10 tablet 09/05/2024 09/10/2024 Active Start: 08-28-2024 End: 09-03-2024 take 1 tablet by mouth once daily Prednisone 50 mg tablet Active 50 MG PO Daily 11 19August 28, 2024 1:00am Start: 05-25-2024 End: 07-19-2024 take 3 tablets by mouth every six hours Prednisone 50 mg tablet Discontinued 50 MG PO Daily July 12, 2024 5:59pm July 19, 2024 10:35am take three doses 6 hours apart with last dose ending [address] scan Start: 04-03-2024 End: 05-10-2024 take 1 tablet by mouth twice daily Prednisone 20 mg tablet Discontinued 20 MG PO Twice daily 04 21April 03, 2024 12:00am May 10, 2024 5:27pm take if you have a COPD flare up vitamin B12 (9 sources) Vitamin B12 Start: 05-12-2024 take 1 tablet by mouth once daily Cyanocobalamin (Vitamin B-12) 500 mcg tablet Active 500 MCG PO Daily May 12, 2024 12:00am Start: 05-12-2024 take 1 tablet by el once daily Cyanocobalamin (Vitamin B-12) 500 mcg tablet Active 500 MCG PO Daily May 11, 2024 11:00pm Start: 05-12-2024 take 500 ug by mouth once daily Cyanocobalamin (Vitamin B-12) Active 500 MCG PO Daily May 12, 2024 12:00am Completed/Discontinued Medications Medication Drug Class(es) Dates Sig (Normalized) Sig (Original) acetaminophen 300 mg / butalbital 50 mg / caffeine 40 mg oral capsule (3 sources) Barbiturate, Central Nervous System Stimulant, Methylxanthine Start: 09-02-2024 End: 09-03-2024 take 1 capsule by mouth every four hours as needed for headache 1 capsule, Oral, EVERY 4 HOURS PRN, Starting on 09/03/24 at 0543, Until 09/03/24 at 1113, Headaches, Do not to exceed 6 capsules daily. Maximum dose of acetaminophen is 4000 mg from all sources in 24 hours. Start: 08-30-2024 End: 08-30-2024 take 1 capsule by mouth every four hours as needed for headache 1 capsule, Oral, EVERY 4 HOURS PRN, Starting on Seble 08/30/24 at 0144, Until Seble 08/30/24 at 0541, Headaches, Do not to exceed 6 capsules daily. Maximum dose of acetaminophen is 4000 mg from all sources in 24 hours. acetaminophen 325 mg / HYDROcodone bitartrate 5 mg oral tablet (20 sources) Opioid Agonist Start: 08-30-2024 End: 08-30-2024 1 tablet, Oral, EVERY 8 HOURS PRN, Starting on Seble 08/30/24 at 1606, Until Discontinued, Pain Severe (7-10), Maximum dose of acetaminophen is 4000 mg from all sources in 24 hours. Start: 10-22-2023 take 1 tablet by el th three times daily as needed for pain Hydrocodone-Acetaminophen 5-325 mg table t Active 1 TAB PO Three times daily as needed for pain 9 3 October 22, 2023 Start: 10-22-2023 End: 05-24-2024 take 1 tablet by mouth every six hours as needed HYDROcodone-acetaminophen (NORCO) 5-325 MG per tablet 1 tablet as needed Orally every 6 hrs for 30 days As needed 10/22/2023 05/24/2024 Active albuterol 0.833 mg/ml / ipratropium bromide 0.167 mg/ml inhalation solution (2 sources) Anticholinergic, beta2-Adrenergic Agonist Start: 09-05-2024 1 Dose, Inhalat ion, PRN, Starting on Tue09/05/24 at 1747, Until Discontinued, Shortness of Breath, Initiate RT Bronchodilator Protocol: No Start: 08-28-2024 End: 08-28-2024 take 1 dose by inhalation every four hours as needed 1 Dose, Inhalation, EVERY 4 HOURS PRN, Starting on Tue08/28/24 at 1252, Until Tue08/28/24 at 1555, Shortness of Breath, Initiate RT Bronchodilator Protocol: Yes - Inpatient Protocol azithromycin 500 mg oral tablet (14 sources) Macrolide Antimicrobial Start: 04-03-2024 End: 08-28-2024 take 1 mg by mouth once daily Azithromycin 500 mg tablet Discontinued 0 PO .COMPLEX April 03, 2024 12:00am April 17, 2024 2:28pm For 500 mg dose pack: take 500 mg once daily for 3 days PO; take if you have a COPD flare up Start: 04-03-2024 End: 04-17-2024 take 1 mg by mouth once daily Azithromycin Discontinue d 0 PO .COMPLEX April 03, 2024 12:00am April 17, 2024 2:28pm For 500 mg dose pack: take 500 mg once daily for 3 days PO; take if you have a COPD flare up Start: 04-03-2024 take 1 mg by mouth once daily Azithromycin Active 0 PO .COMPLEX April 03, 2024 12:00am For 500 mg dose pack: take 500 mg once daily for 3 days PO; take if you have a COPD flare up azithromycin (ZITHROMAX) 500 mg in sodium chloride 0.9 % 250 mL IVPB ([id number]) (2 sources) Start: 08-29-2024 End: 08-31-2024 500 mg, IntraVENous, EVERY 2 4 HOURS, 3 doses, First dose on Tue08/29/24 at 1600, Last dose on Tue08/31/24 at 1600, Antimicrobial Indications: Pneumonia (CAP), CAP duration of therapy: 3 days, Use 20mm (Blue) [id number] Adapter Preparation instructions: Attach medication vial to one 20mm (Blue) [id number] adapter. Monster fluid bag with adapter, mix, and administer per order. Start: 08-28-2024 End: 08-28-2024 500 mg, IntraVENous, ONCE, 1 dose, On Tue08/28/24 at 1415, Antimicrobial Indications: Pneumonia (CAP), Use 20mm (Blue) [id number] Adapter Preparation instructions: Attach medication vial to one 20mm (Blue) [id number] adapter. Monster fluid bag with adapter, mix, and administer per order. benzonatate 100 mg oral capsule (18 sources) Non-narcotic Antitussive Start: 08-28-2024 take 100 mg by mouth every four hours as needed 100 mg, Oral, EVERY 4 HOURS PRN, Starting on Tue08/28/24 at 1542, Until Discontinued, Cough, Do not crush or break. Start: 03-26-2024 take 1 capsule by [facility] twice daily Benzonatate 200 mg capsule Active 200 MG PO Twice daily March 26, 2024 12:00am Start: 03-26-2024 Benzonatate Ac tive MG PO March 26, 2024 12:00am calcium chloride 0.0014 meq/ml / potassium chloride 0.004 meq/ml / sodium chloride 0.103 meq/ml / sodium lactate 0.028 meq/ml injectable solution (1 source) Start: 08-28-2024 End: 08-30-2024 IntraVENous, at 100 mL/hr, CONTINUOUS, Starting on Tue08/28/24 at 2230 cefTRIAXone (ROCEPHIN) 1,000 mg in sterile water 10 mL IV syringe (2 sources) Start: 08-29-2024 End: 09-01-2024 take 100 mg intravenously every twenty-four hours 1,000 mg, IntraVENous, EVERY 24 HOURS, First dose on Tue08/29/24 at 1200, For 4 days, Administer as slow IV Push over 5 mins Reconstitute 1 g vials with 9.6 mL of designated diluent to produce a 100 mg/mL solution. Start: 08-28-2024 End: 08-28-2024 take 100 mg intravenously once 1,000 mg, IntraVENous, ONCE, On Tue08/28/24 at 1415, For 1 dose, Administer as slow IV Push over 5 mins Reconstitute 1 g vials with 9.6 mL of designated diluent to produce a 100 mg/mL solution. diazePAM 5 mg oral tablet (20 sources) Benzodiazepine Start: 08-28-2024 take 10 mg by mouth every twelve hours as needed 10 mg, Oral, EVERY 12 HOURS PRN, Starting on Tue08/28/24 at 1542, Until Discontinued, Anxiety, Sleep Start: 09-27-2023 End: 05-12-2024 take 1 tablet by mouth at bedtime as needed for muscle spasms Diazepam 10 mg tablet Discontinued 10 MG PO Bedtime as needed for muscle spasm September 27, 2023 12:00am May 12, 2024 10:46am Start: 09-27-2023 End: 05-12-2024 take 1 tablet by mouth at bedtime as needed for muscle spasms Diazepam 10 mg tablet Discontinued 10 MG PO Bedtime as needed for muscle spasm September 26, 2023 11:00pm May 12, 2024 9:46am diphenhydrAMINE hydrochloride 25 mg oral capsule (20 sources) Histamine-1 Receptor Antagonist Start: 05-25-2024 End: 07-19-2024 Diphenhydramine Hcl (Benadryl) 25 mg capsule Discontinued 50 MG PO Once 2 July 12, 2024 6:02pm July 19, 2024 10:36am take [address] scan donepezil hydrochloride 10 mg oral tablet (3 sources) Start: 08-28-2024 take 10 mg by mouth once daily 10 mg, Oral, NIGHTLY, First dose on Tue08/28/24 at 2100, Until Discontinued doxycycline hyclate 100 mg oral tablet (4 sources) Tetracycline-clas s Drug Start: 08-28-2024 End: 09-03-2024 take 1 tablet by mouth twice daily doxycycline hyclate (VIBRA-TABS) 100 MG tablet Take 1 tablet by mouth 2 times daily 08/28/2024 09/03/2024 Discontinued (Stop Taking at Discharge) Start: 08-28-2024 take 1 capsule by [facility] twice daily Doxycycline Hyclate 100 mg capsule Active 100 MG PO Twice daily 14 August 28, 2024 1:00am 0.4 ml enoxaparin sodium 100 mg/ml prefilled syringe (1 source) Low Molecular Weight Heparin Start: 09-03-2024 inject 40 mg by subcutaneous injection once daily 40 mg, SubCUTAneous, DAILY, First dose on Tue09/03/24 at 0900, Until Discontinued, Indication of Use: Prophylaxis-DVT/PE, Administer by deep subCUTAneous injection with pt lying down. Alternate injection sites on abdominal wall. Do not rub site after injection. Check with provider prior to any invasive procedure. Fluticasone-Ume clidin-Vilanter (20 sources) Start: 10-22-2023 End: 05-10-2024 Altevfwdbgr-Kmrhwnmiy-Lp lanter (Trelegy Ellipta) 200-62.5-25 mcg blister with device Discontinued 1 INH INHALATION Daily October 21, 2023 11:00pm May 10, 2024 4:27pm Start: 10-22-2023 End: 05-10-2024 Ggiwnxlprzg-Eackkpotk-Xxdiay er (Trelegy Ellipta) 200-62.5-25 mcg blister with device Discontinued 1 INH INHALATION Daily October 22, 2023 12:00am May 10, 2024 5:27pm Start: 10-22-2023 Fluticasone-Um eclidin-Vilanter (Trelegy Ellipta) 200-62.5-25 mcg blister with device Active 1 INH INHALATION Daily October 22, 2023 12:00am 2 ml furosemide 10 mg/ml injection (2 sources) Loop Diuretic Start: 09-01-2024 End: 09-01-2024 40 mg, IntraVENous, ONCE, 1 dose, On 09/01/24 at 1030 Start: 08-31-2024 End: 08-31-2024 40 mg, IntraVENous, ONCE, 1 dose, On 08/31/24 at 0945 1 ml heparin sodium, porcine 5000 unt/ml prefilled syringe (1 source) Unfractionated Heparin, Anti-coagulant Start: 08-28-2024 End: 09-02-2024 5,000 Units, SubCUTAneous, EVERY 8 HOURS SCHEDULED (3 times per day), 17 doses, First dose on Tue08/28/24 at 1600, Last dose on Tue09/02/24 at 2200, DVT Prophylaxis 1 ml hydrALAZINE hydrochloride 20 mg/ml injection (2 sources) Arteriolar Vasodilator Start: 09-02-2024 20 mg, IntraVENous, EVERY 4 HOURS PRN, Starting on Tue09/02/24 at 0442, Until Discontinued, SBP > 160 Start: 09-02-2024 End: 09-02-2024 10 mg, IntraVENous, EVERY 6 HOURS PRN, Starting on Tue09/02/24 at 0047, Until Tue09/02/24 at 0442, SBP > 160 ibuprofen 400 mg oral tablet (2 sources) Nonsteroidal Anti-inflammatory Drug Start: 09-03-2024 End: 09-03-2024 take 1 tablet by mouth every six hours as needed for pain ibuprofen (ADVIL;MOTRIN) 400 MG tablet Take 1 tablet by mouth every 6 hours as needed for Pain (headaches) 120 tablet 09/03/2024 09/03/2024 Discontinued (Stop Taking at Discharge) insulin lispro 100 unt/ml injectable solution (1 source) Insulin Analog Start: 08-28-2024 0-4 Units, SubCUTAneous, 4 TIMES DAILY BEFORE MEALS & NIGHTLY, First dose on Tue08/28/24 at 1700, Until Discontinued, Corrective Low Dose Algorithm Glucose: Dose: 70-179 No Insulin 180-249 1 Unit 250-299 2 Units 300-349 3 Units Over 349 4 Units and notify physician Administer as soon as possible within 60 minutes of last blood glucose check 1 ml ketorolac tromethamine 30 mg/ml cartridge (1 source) Nonsteroidal Anti-inflammatory Drug, Cyclooxygenase Inhibitor Start: 09-02-2024 End: 09-03-2024 15 mg, IntraVENous, ONCE PRN, 1 dose, Starting on Tue09/02/24 at 0953, Until Tue09/03/24 at 0133, headache if no relief with tylenol, Do not administer for more than 5 days. 50 ml magnesium sulfate 40 mg/ml injection (2 sources) Start: 08-28-2024 End: 08-28-2024 2,000 mg, IntraVENous, at 25 mL/hr, Administer over 2 Hours, ONCE, On Tue08/28/24 at 1600, For 1 dose, Recommended infusion rate not to exceed 1,000 mg (milligrams) per hour. Start: 08-28-2024 melatonin 3 mg oral tablet (1 source) Start: 09-03-2024 take 3 mg by mouth once daily as needed 3 mg, Oral, NIGHTLY PRN, Starting on Tue09/03/24 at 1113, Until Discontinued, Sleep metFORMIN hydrochloride 500 mg oral tablet (20 sources) Biguanide Start: 09-27-2023 End: 05-25-2024 take 1 tablet by mouth twice daily Metformin 500 mg tablet Discontinued 500 MG PO Twice daily September 27, 2023 12:00am May 25, 2024 3:41pm methylPREDNISolone sodium succ (SOLU-MEDROL) 125 mg in sterile water 2 mL injection (1 source) Start: 08-28-2024 End: 08-28-2024 125 mg, IntraVENous, ONCE, On Tue08/28/24 at 1300, For 1 dose, Reconstitute 125 mg vial with 2 mL diluent. methylPREDNISolone sodium succ (SOLU-MEDROL) 40 mg in sterile water 1 mL injection (3 sources) Start: 09-01-2024 End: 09-03-2024 40 mg, IntraVENous, EVERY 12 HOURS, First dose (after last modification) on Tue09/01/24 at 2200, Reconstitute each 40 mg vial with 1 mL of diluent. Start: 08-31-2024 End: 09-01-2024 40 mg, IntraVENous, EVERY 8 HOURS, First dose (after last modification) on Tue08/31/24 at 1800, Reconstitute each 40 mg vial with 1 mL of diluent. Start: 08-28-2024 End: 08-31-2024 40 mg, IntraVENous, EVERY 6 HOURS, First dose on Tue08/28/24 at 1600, Reconstitute each 40 mg vial with 1 mL of diluent. midodrine hydrochloride 5 mg oral tablet (1 source) alpha-Adrenergic Agonist Start: 08-28-2024 End: 08-28-2024 take 5 mg by mouth once at bedtime 5 mg, Oral, Once, 1 dose, On Tue08/28/24 at 2100, Do not give after 1800 or within 4 hrs of bedtime. mirtazapine 30 mg oral tablet (3 sources) Start: 08-28-2024 take 30 mg by mouth once daily 30 mg, Oral, NIGHTLY, First dose on Tue08/28/24 at 2100, Until Discontinued norepinephrine (LEVOPHED) 16 mg in sodium chloride 0.9 % 250 mL infusion (premix) (1 source) Start: 08-28-2024 End: 08-30-2024 1-100 mcg/min (0.9375-93.75 mL/hr, rounded to 0.9-93.8 mL/hr), IntraVENous, CONTINUOUS, Starting on Tue08/28/24 at 2230, Until Tue08/30/24 at 1329, Titrate Infusion? Yes, Initial Infusion Dose: 5 mcg/min, Goal of Therapy is: MAP greater than 65 mmHg, Contact Provider if: Patient is receiving the maximum dose and is not achieving the goal of therapy, Vascular access recommendations: - Step 1: Is the concentration GREATER than 16mg/250mL? >Yes - REQUIRES A central line >No - Proceed to step 2 -Step 2: Concentrations LESS THAN OR EQUAL TO 16mg/250mL, central line preferred, may administer through a peripheral intraVENous catheter for emergent situations (in anticipation of central line placement) or for a short duration (less than 48 hours) if placed in a large vein, at a proximal site. If available, refer to site specific guidance for additional administration requirements/instr uctions. If Titrate Infusion? is No : Disregard instructions below. If Titrate infusion? is Yes : If rate LESS than 10 mcg/min: Titrate by 2 mcg/min no faster than every 5 minutes to goal. If rate GREATER than or equal to 10 mcg/min: Titrate by 5 mcg/min no faster than every 5 minutes to goal. When approaching therapeutic goal or weaning off, smaller titration increments of 1 mcg/min no faster than every 5 minutes may be used to maintain goal. If patient is not at goal for >15 minutes, titrate infusion by 10 mcg/min every 2 minutes for a max of 10 minutes and contact the provider for further instructions/order s. Restarting the infusion: If the infusion has been stopped for less than or equal to 30 minutes, resume at previous dose. If the infusion has been stopped for greater than 30 minutes, resume at initial starting dose in order. nystatin 860053 unt/ml oral suspension (16 sources) Polyene Antifungal Start: 02-15-2024 End: 04-03-2024 Nystatin 100,000 unit/mL suspension Discontinued 4 ML PO Four times daily 112 February 15, 2024 12:00am April 03, 2024 10:59am administer 1/2 of dose in each side of the mouth oseltamivir 75 mg oral capsule (4 sources) Neuraminidase Inhibitor Start: 08-30-2024 End: 09-01-2024 75 mg, Oral, 2 TIMES DAILY, 5 doses, First dose (after last modification) on Tue08/30/24 at 2100, Last dose on Tue09/01/24 at 2100 Start: 08-29-2024 End: 08-30-2024 30 mg, Oral, 2 TIMES DAILY, 7 doses, First dose (after last modification) on Tue08/29/24 at 2100, Last dose on Tue09/01/24 at 2100 Start: 08-28-2024 End: 08-29-2024 75 mg, Oral, 2 TIMES DAILY, 9 doses, First dose on Tue08/28/24 at 2100, Last dose on Tue09/01/24 at 2100 Start: 08-28-2024 End: 08-28-2024 take 1 dose by mouth once 75 mg, Oral, ONCE, 1 dose, O n Tue08/28/24 at 1415 PARoxetine hydrochloride 20 mg oral tablet (20 sources) Serotonin Reuptake Inhibitor Start: 08-28-2024 take 20 mg by mouth once daily 20 mg, Oral, DAILY, First dose on Tue08/28/24 at 1600, Until Discontinued Start: 03-26-2024 take 1 tablet by el once daily in the morning PARoxetine (PAXIL) 40 MG tablet Take 1 tablet by mouth every morning 03/26/2024 Active Start: 03-26-2024 Paroxetine Hcl 20 mg tablet Active 30 MG PO Daily March 26, 2024 11:26am Start: 03-26-2024 take 30 mg by mouth once daily Paroxetine Hcl Active 30 MG PO Daily March 26, 2024 11:26am Start: 10-22-2023 End: 03-26-2024 take 1 tablet by mouth once daily Paroxetine Hcl 20 mg tablet Discontinued 20 MG PO Daily October 22, 2023 12:00am March 26, 2024 11:27am microencapsulated potassium chloride 20 meq extended release oral tablet (2 sources) Start: 09-02-2024 End: 09-02-2024 40 mEq, Oral, ONCE, 1 dose, On Tue09/02/24 at 0815, Do not crush or break. Do not crush, chew, or suck on tablet. Tablet may also be broken in half and each half swallowed separately. Start: 08-28-2024 potassium chlo ride (KLOR-CON M) extended release tablet 40 mEq 1000 ml sodium chloride 4.5 mg/ml injection (10 sources) Start: 08-30-2024 End: 08-31-2024 IntraVENous, at 75 mL/hr, CONTINUOUS, Starting on Tue08/30/24 at 1345 Start: 08-28-2024 End: 08-29-2024 1,000 mL (19.2 mL/kg), Intra VENous, at 495.9 mL/hr, Administer over 121 Minutes, ONCE, On Tue08/29/24 at 1130, For 1 dose, STAT Start: 08-28-2024 5-40 mL, Intra VENous, EVERY 12 HOURS SCHEDULED (2 times per day), First dose on Tue08/28/24 at 2100, Until Discontinued, For Line Patency: Peripheral IV = 5 mL; Midline or Central Line = 10 mL/lumen. If following IV push medication, administer flush at same rate as the IV push. Flush volume is determined by type of infusion therapy being given. For non-viscous solutions use: Peripheral IV = 5 mL Midline or Central Line = 10 mL/lumen For viscous solutions (i.e. blood components, parenteral nutrition, contrast media, or after obtaining blood sample) use: Peripheral IV = 10 mL Midline or Central Line = 20 mL/lumen Start: 08-28-2024 Start: 08-28-2024 5-40 mL, Intra VENous, PRN, Starting on Tue08/28/24 at 1542, Until Discontinued, Line Care, After every IV line use, For Line Patency: Peripheral IV = 5 mL; Midline or Central Line = 10 mL/lumen. If following IV push medication, administer flush at same rate as the IV push. Flush volume is determined by type of infusion therapy being given. For non-viscous solutions use: Peripheral IV = 5 mL Midline or Central Line = 10 mL/lumen For viscous solutions (i.e. blood components, parenteral nutrition, contrast media, or after obtaining blood sample) use: Peripheral IV = 10 mL Midline or Central Line = 20 mL/lumen Start: 05-17-2024 5-40 mL, Intra VENous, EVERY 12 HOURS SCHEDULED (2 times per day), First dose on [place] 05/17/24 at 0900, Until Discontinued, For Line Patency: Peripheral IV = 5 mL; Midline or Central Line = 10 mL/lumen. If following IV push medication, administer flush at same rate as the IV push. Flush volume is determined by type of infusion therapy being given. For non-viscous solutions use: Peripheral IV = 5 mL Midline or Central Line = 10 mL/lumen For viscous solutions (i.e. blood components, parenteral nutrition, contrast media, or after obtaining blood sample) use: Peripheral IV = 10 mL Midline or Central Line = 20 mL/lumen, Pre-procedure(GI) Start: 05-17-2024 IntraVENous, a t 75 mL/hr, CONTINUOUS, Starting on [place] 05/17/24 at 0700, Pre-procedure(GI) Start: 05-17-2024 5-40 mL, Intra VENous, PRN, Starting on [place] 05/17/24 at 0637, Until Discontinued, Line Care, After every IV line use, For Line Patency: Peripheral IV = 5 mL; Midline or Central Line = 10 mL/lumen. If following IV push medication, administer flush at same rate as the IV push. Flush volume is determined by type of infusion therapy being given. For non-viscous solutions use: Peripheral IV = 5 mL Midline or Central Line = 10 mL/lumen For viscous solutions (i.e. blood components, parenteral nutrition, contrast media, or after obtaining blood sample) use: Peripheral IV = 10 mL Midline or Central Line = 20 mL/lumen, Pre-procedure(GI) sulfur hexafluoride microspheres (LUMASON) 60.7-25 MG injection 2 mL (1 source) Start: 08-30-2024 2 mL, IntraVEN ous, IMG ONCE PRN, 1 dose, Starting on [place] 08/30/24 at 0751, Until Discontinued, Other, Inability to adequately visualize heart without contrast, Only to be given during ECHOCARDIOGRAM. Echocardiogram should first be performed without contrast and if exam is adequate then DO NOT administer the contrast. If unable to adequately visualize heart without contrast and the patient has no contraindications to echo contrast then administer the echo contrast. [id number] adaptor (3 sources) Start: 08-31-2024 End: 08-31-2024 1 dose, Starting on Fri 08/31 at 1635, Until 08/31/24 at 1709, Jesenia Han: cabinet override, Jesenia Han: cabinet override Start: 08-30-2024 End: 08-30-2024 1 dose, Starting on [place] 08/30 at 1539, Until [place] 08/30/24 at 1550, Josselyn Julio: cabinet override, Josselyn Julio: cabinet override Start: 08-28-2024 End: 08-28-2024 1 dose, Starting on Tue 08/28 at 1609, Until 08/28/24 at 1619, Oliva Carvalho: cabinet override, Oliva Carvalho: cabinet override Problems Active Problems Problem Classification Problem Date Documented Da te Episodic/Chronic Administrative/social admission (20 sources) Repeated prescription; Translations: [Encounter for issue of repeat prescription] 10-05-2023 Episodic Chronic obstructive pulmonary disease and bronchiectasis (20 sources) Acute exacerbation of chronic obstructive airways disease; Translations: [Chronic obstructive lung disease] Onset: 05-10-2024 10-05-2023 Chronic Congestive heart failure; nonhypertensive (2 sources) Heart failure, unspecified; Translations: [Congestive heart failure] Onset: 08-28-2024 09-03-2024 Chronic Diabetes mellitus without complication (18 sources) Diabetes mellitus; Translations: [Type 2 diabetes mellitus without complications] Onset: 11-24-2023 05-11-2024 Chronic Diseases of white blood cells (1 source) Elevated white blood cell count, unspecified; Translations: [Elevated white blood cell count, unspecified] Onset: 09-18-2024 Chronic Disorders of lipid metabolism (1 source) Mixed hyperlipidemia; Translations: [Mixed hyperlipidemia] Onset: 09-11-2024 Chronic Essential hypertension (18 sources) Hypertensive disorder; Translations: [Essential (primary) hypertension] Onset: 02-09-2024 4 Chronic Influenza (5 sources) Influenza due to other identified influenza virus with other respiratory manifestations; Translations: [Influenza due to Influenza A virus] Onset: 08-29-2024 08-28-2024 Episodic Mycoses (20 sources) Candidiasis of mouth; Translations: [Candidal stomatitis] 02-15-2024 Episodic Neoplasms of unspecified nature or uncertain behavior (18 sources) Neoplasm of pancreas; Translations: [Neoplasm of unspecified behavior of digestive system] 04-03-2024 Episodic Nonspecific chest pain (5 sources) Chest pain, unspecified; Translations: [Chest pain] Onset: 08-29-2024 08-29-2024 Episodic Nutritional deficiencies (16 sources) Vitamin D deficiency; Translations: [Vitamin D deficiency, unspecified] Onset: 05-10-2024 05-11-2024 Chronic Other aftercare (9 sources) Polypharmacy ; Translations: [Other correction (current) drug therapy] 05-12-2024 Episodic Other circulatory disease (3 sources) Low blood pressure; Translations: [Hypotension, unspecified] 08-28-2024 Episodic Other injuries and conditions due to external causes (20 sources) History of fall; Translations: [History of falling] 10-22-2023 Episodic Other lower respiratory disease (14 sources) Nodule of lung; Translations: [Solitary pulmonary nodule] 04-03-2024 Episodic Other lower respiratory disease (15 sources) Solitary pulmonary nodule; Translations: [Solitary pulmonary nodule] Onset: 07-19-2024 04-03-2024 Episodic Other lower respiratory disease (3 sources) Hypoxia; Translations: [Hypoxemia] 08-28-2024 Episodic Other lower respiratory disease (2 sources) Shortness of breath; Translations: [Shortness of breath] Onset: 08-28-2024 Episodic Other lower respiratory disease (1 source) Dyspnea; Translations: [Shortness of breath] 08-29-2024 Episodic Other screening for suspected conditions (not mental disorders or infectious disease) (1 source) Abnormal findings on diagnostic imaging of other specified body structures; Translations: [Abnormal findings on diagnostic imaging of other specified body structures] Onset: 04-25-2024 Chronic Other upper respiratory infections (9 sources) Acute pharyngitis, unspecified; Translations: [Acute pharyngitis] 02-15-2024 Episodic Pneumonia (except that caused by tuberculosis or sexually transmitted disease) (8 sources) Pneumonia, unspecified organism; Translations: [Community acquired pneumonia] Onset: 08-28-2024 08-28-2024 Episodic Residual codes; unclassified (10 sources) Altered mental status; Translations: [Altered mental status, unspecified] 05-10-2024 Episodic Sprains and strains (20 sources) Strain of neck muscle; Translations: [Strain of muscle, fascia and tendon at neck level, initial encounter] 10-22-2023 Episodic Substance-related disorders (20 sources) Chain smoker; Translations: [Nicotine dependence, unspecified, uncomplicated] Onset: 05-10-2024 04-03-2024 Chronic Superficial injury; contusion (20 sources) Contusion of rib; Translations: [Contusion of right front wall of thorax, initial encounter] 10-22-2023 Episodic Past or Other Problems Problem Classification Problem Date Documented Da te Episodic/Chronic Cardiac dysrhythmias (18 sources) Bradycardia; Translations: [Bradycardia, unspecified] Onset: 05-10-2024 05-10-2024 Episodic Conditions associated with dizziness or vertigo (18 sources) Lightheadedness; Translations: [Dizziness and giddiness] Onset: 05-10-2024 05-10-2024 Episodic Genitourinary symptoms and ill-defined conditions (1 source) Urgency of urination; Translations: [Urgency of urination] Onset: 11-24-2023 Episodic Other aftercare (1 source) 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; Translations: [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] Onset: 05-10-2024 Episodic Other liver diseases (1 source) Abnormal levels of other serum enzymes; Translations: [Abnormal levels of other serum enzymes] Onset: 06-20-2024 Episodic Other lower respiratory disease (1 source) Pleurodynia; Translations: [Pleurodynia] Onset: 10-22-2023 Episodic Other screening for suspected conditions (not mental disorders or infectious disease) (7 sources) Abnormal finding on evaluation procedure; Translations: [Abnormal results of function studies of other organs and systems] Onset: 03-23-2024 05-17-2024 Episodic Pancreatic disorders (not diabetes) (1 source) Disease of pancreas, unspecified; Translations: [Disease of pancreas, unspecified] Onset: 06-05-2024 Episodic Residual codes; unclassified (8 sources) Altered mental status, unspecified; Translations: [Altered mental status] Onset: 05-10-2024 05-10-2024 Episodic Spondylosis; intervertebral disc disorders; other back problems (2 sources) Cervicalgia; Translations: [Pain in thoracic spine] Onset: 02-10-2024 Episodic Urinary tract infections (10 sources) Urinary tract infectious disease; Translations: [Urinary tract infection, site not specified] Onset: 05-10-2024 05-10-2024 Episodic Results Test Name Value Interpretation Reference Range Facility Urine Cultureon 09-18-2024 Bacteria identified Cx Nom (U) No Growth 2 Days PERFORMED BY: [place] [address] PATHOLOGIST ENERGY TECHNICIAN RODOLFO Carver [facility] Comment on above: Performed By: #### C UU #### [address] Alanine aminotransferase [En zymatic activity/volume] in Serum or PlasmaOrdered By: Vicky Oshea on 09-11-2024 ALT [Catalytic activity/Vol] Alanine aminotransferase [Enzymatic activity/volume] in Serum or Plasma [address] [facility] Albumin [Mass/volume] in Ser um or Plasma by Bromocresol green (BCG) dye binding methoOrdered By: Vicky Oshea on 09-11-2024 Albumin BCG dye [Mass/Vol] Albumin [Mass/volume] in Serum or Plasma by Bromocresol green (BCG) dye binding metho 3.5-5.7 [facility] Alkaline phosphatase [Enzyma tic activity/volume] in Serum or PlasmaOrdered By: Vicky Oshea on 09-11-2024 ALP [Catalytic activity/Vol] Alkaline phosphatase [Enzymatic activity/volume] in Serum or Plasma 34-104 [facility] Aspartate aminotransferase [ Enzymatic activity/volume] in Serum or PlasmaOrdered By: Vicky Oshea on 09-11-2024 AST [Catalytic activity/Vol] Aspartate aminotransferase [Enzymatic activity/volume] in Serum or Plasma 13-39 [facility] Basophils Auto (Bld) [#/Vol] Ordered By: Vicky Oshea on 09-11-2024 Basophils (Bld) [#/Vol] Automated basophil count 0.0-0.2 [facility] Basophils/100 WBC Auto (Bld) Ordered By: Vicky Oshea on 09-11-2024 Basophils/100 WBC (Bld) Automated basophil % . [facility] Bilirubin.total [Mass/volume ] in Serum or PlasmaOrdered By: Vicky Oshea on 09-11-2024 Bilirubin [Mass/Vol] Bilirubin.total [Mass/volume] in Serum or Plasma 0.3-1.0 [facility] Calcium [Mass/volume] in Ser um or PlasmaOrdered By: Vicky Oshea on 09-11-2024 Calcium [Mass/Vol] Calcium [Mass/volume ] in Serum or Plasma 8.6-10.3 [facility] Carbon dioxide, total [Moles /volume] in Serum or PlasmaOrdered By: Vicky Oshea on 09-11-2024 CO2 [Moles/Vol] Carbon dioxide, tota l [Moles/volume] in Serum or Plasma 21.0-31.0 [facility] Chloride [Moles/volume] in S tiffanie or PlasmaOrdered By: Vicky Oshea on 09-11-2024 Chloride [Moles/Vol] Chloride [Moles/vol ume] in Serum or Plasma 98-107 [facility] Complete Blood Count Auto Di ffon 09-11-2024 Basophils (Bld) [#/Vol] 0.1 10*3/uL Normal 0.0-0.2 [facility] Comment on above: Order Comment: Reaso n for Exam Mixed hyperlipidemia;Essential hypertension;Malignant neopla Result Comment: PERF ORMED BY: [place] [address] PATHOLOGIST ENERGY TECHNICIAN RODOLFO BOONE M.D. Performed By: #### C UU #### [address] Basophils/100 WBC (Bld) 0.6 % Normal . [facility] Comment on above: Order Comment: Reaso n for Exam Mixed hyperlipidemia;Essential hypertension;Malignant neopla Performed By: #### C UU #### [place] [address] [place] Eosinophils (Bld) [#/Vol] 0.2 10*3/uL Normal 0.0-0.45 [facility] Comment on above: Order Comment: Reaso n for Exam Mixed hyperlipidemia;Essential hypertension;Malignant neopla Performed By: #### C UU #### [place] [address] [place] Eosinophils/100 WBC (Bld) 1.2 % Normal . [facility] Comment on above: Order Comment: Reaso n for Exam Mixed hyperlipidemia;Essential hypertension;Malignant neopla Performed By: #### C UU #### [address] Erythrocyte distribution width (RBC) [Ratio] 15.2 % Normal 11.9-15.3 [facility] Comment on above: Order Comment: Reaso n for Exam Mixed hyperlipidemia;Essential hypertension;Malignant neopla Performed By: #### C UU #### [address] Hematocrit (Bld) [Volume fraction] 35.6 % Normal 34.0-46.4 [facility] Comment on above: Order Comment: Reaso n for Exam Mixed hyperlipidemia;Essential hypertension;Malignant neopla Performed By: #### C UU #### [address] Hemoglobin (Bld) [Mass/Vol] 11.7 g/dL Low 11.8-15.4 [facility] Comment on above: Order Comment: Reaso n for Exam Mixed hyperlipidemia;Essential hypertension;Malignant neopla Performed By: #### C UU #### [place] [address] [place] Lymphocytes (Bld) [#/Vol] 4.2 10*3/uL Normal 1.00-4.8 [facility] Comment on above: Order Comment: Reaso n for Exam Mixed hyperlipidemia;Essential hypertension;Malignant neopla Performed By: #### C UU #### [address] Lymphocytes/100 WBC (Bld) 26.3 % Normal . [facility] Comment on above: Order Comment: Reaso n for Exam Mixed hyperlipidemia;Essential hypertension;Malignant neopla Performed By: #### C UU #### [address] MCH (RBC) [Entitic mass] 28.6 pg Normal 24.7-34.3 [facility] Comment on above: Order Comment: Reaso n for Exam Mixed hyperlipidemia;Essential hypertension;Malignant neopla Performed By: #### C UU #### [address] MCV (RBC) [Entitic vol] 86.8 fL Normal 80-100 [facility] Comment on above: Order Comment: Reaso n for Exam Mixed hyperlipidemia;Essential hypertension;Malignant neopla Performed By: #### C UU #### [address] Mean Corpuscular HGB Conc 32.9 g/dL Normal 32.0-35.0 [facility] Comment on above: Order Comment: Reaso n for Exam Mixed hyperlipidemia;Essential hypertension;Malignant neopla Performed By: #### C UU #### [address] Monocytes (Bld) [#/Vol] 1.0 10*3/uL High 0.0-0.8 [facility] Comment on above: Order Comment: Reaso n for Exam Mixed hyperlipidemia;Essential hypertension;Malignant neopla Performed By: #### C UU #### [address] Monocytes/100 WBC (Bld) 6.2 % Normal . [facility] Group Comment on above: Order Comment: Reaso n for Exam Mixed hyperlipidemia;Essential hypertension;Malignant neopla Performed By: #### C UU #### [address] Neutrophils (Bld) [#/Vol] 10.6 10*3/uL High 1.8-7.7 The [facility] Comment on above: Order Comment: Reaso n for Exam Mixed hyperlipidemia;Essential hypertension;Malignant neopla Performed By: #### C UU #### [address] Neutrophils/100 WBC (Bld) 65.7 % Normal . [facility] Comment on above: Order Comment: Reaso n for Exam Mixed hyperlipidemia;Essential hypertension;Malignant neopla Performed By: #### C UU #### [address] NRBC% 0.1 /100{WBC} Normal 0-0.5 The [facility] Comment on above: Order Comment: Reaso n for Exam Mixed hyperlipidemia;Essential hypertension;Malignant neopla Performed By: #### C UU #### [address] Platelet mean volume (Bld) [Entitic vol] 10.2 fL Normal 6.3-10.7 The [facility] Comment on above: Order Comment: Reaso n for Exam Mixed hyperlipidemia;Essential hypertension;Malignant neopla Performed By: #### C UU #### [address] Platelets (Bld) [#/Vol] 290 10*3/uL Normal 150-450 The [facility] Comment on above: Order Comment: Reaso n for Exam Mixed hyperlipidemia;Essential hypertension;Malignant neopla Performed By: #### C UU #### [place] [address] [place] RBC (Bld) [#/Vol] 4.10 10*6/uL Normal 3.60-5.00 The [facility] Comment on above: Order Comment: Reaso n for Exam Mixed hyperlipidemia;Essential hypertension;Malignant neopla Performed By: #### C UU #### [address] WBC (Bld) [#/Vol] 16.1 10*3/uL High 3.8-11.6 The [facility] Comment on above: Order Comment: Reaso n for Exam Mixed hyperlipidemia;Essential hypertension;Malignant neopla Performed By: #### C UU #### [facility] [address] Comprehensive Metabolic Pane margarita 09-11-2024 Albumin [Mass/Vol] 3.9 g/dL Normal 3.5-5.7 The [facility] Comment on above: Order Comment: Reaso n for Exam Mixed hyperlipidemia;Essential hypertension;Malignant neopla Performed By: #### C UU #### [facility] [address] Albumin/Globulin [Mass ratio] 1.4 {ratio} Normal The [facility] Comment on above: Order Comment: Reaso n for Exam Mixed hyperlipidemia;Essential hypertension;Malignant neopla Performed By: #### C UU #### [address] ALP [Catalytic activity/Vol] 78 U/L Normal 34-104 The [facility] Comment on above: Order Comment: Reaso n for Exam Mixed hyperlipidemia;Essential hypertension;Malignant neopla Performed By: #### C UU #### [place] [address] [place] ALT [Catalytic activity/Vol] 16 U/L Normal 7-52 The [facility] Comment on above: Order Comment: Reaso n for Exam Mixed hyperlipidemia;Essential hypertension;Malignant neopla Performed By: #### C UU #### [place] [address] [place] Anion gap [Moles/Vol] 11.0 mmol/L Normal 6.0-15.0 Th [facility] Comment on above: Order Comment: Reaso n for Exam Mixed hyperlipidemia;Essential hypertension;Malignant neopla Performed By: #### C UU #### [place] [id number] [place] AST [Catalytic activity/Vol] 17 U/L Normal 13-39 The [facility] Comment on above: Order Comment: Reaso n for Exam Mixed hyperlipidemia;Essential hypertension;Malignant neopla Performed By: #### C UU #### [place] [id number] [place] Bilirubin [Mass/Vol] 0.3 mg/dL Normal 0.3-1.0 The [facility] Comment on above: Order Comment: Reaso n for Exam Mixed hyperlipidemia;Essential hypertension;Malignant neopla Performed By: #### C UU #### [facility] [address] Calcium [Mass/Vol] 9.1 mg/dL Normal 8.6-10.3 The [facility] Comment on above: Order Comment: Reaso n for Exam Mixed hyperlipidemia;Essential hypertension;Malignant neopla Performed By: #### C UU #### [facility] [address] [place] [address] [place] Chloride [Moles/Vol] 105 mmol/L Normal 98-107 The [facility] Comment on above: Order Comment: Reaso n for Exam Mixed hyperlipidemia;Essential hypertension;Malignant neopla Performed By: #### C UU #### [place] [address] [place] CO2 [Moles/Vol] 24.6 mmol/L Normal 21.0-31.0 The [facility] Comment on above: Order Comment: Reaso n for Exam Mixed hyperlipidemia;Essential hypertension;Malignant neopla Performed By: #### C UU #### [address] Creatinine [Mass/Vol] 0.92 mg/dL Normal 0.60-1.20 The [facility] Comment on above: Order Comment: Reaso n for Exam Mixed hyperlipidemia;Essential hypertension;Malignant neopla Performed By: #### C UU #### [place] [address] [place] GFR/1.73 sq M.predicted MDRD (S/P/Bld) [Vol rate/Area] mL/min/{1.73_m2} Normal The [facility] Comment on above: Order Comment: Reaso n for Exam Mixed hyperlipidemia;Essential hypertension;Malignant neopla Performed By: #### C UU #### [facility] [address] [place] [address] [place] Globulin (S) [Mass/Vol] 2.8 g/dL Normal The [facility] Comment on above: Order Comment: Reaso n for Exam Mixed hyperlipidemia;Essential hypertension;Malignant neopla Performed By: #### C UU #### [facility] [address] [place] [address] [place] Glucose [Mass/Vol] 130 mg/dL High 70-100 The [facility] Comment on above: Order Comment: Reaso n for Exam Mixed hyperlipidemia;Essential hypertension;Malignant neopla Result Comment: [place] Glucose Reference Range is dependent on time and content of last meal. Glucose of more than 200 mg/dL in a nonstressed, ambulatory subject supports the diagnosis of Diabetes Mellitus. ADA recommended reference range Performed By: #### C UU #### [place] [address] [place] Potassium [Moles/Vol] 3.6 mmol/L Normal 3.5-5.1 The [facility] Comment on above: Order Comment: Reaso n for Exam Mixed hyperlipidemia;Essential hypertension;Malignant neopla Performed By: #### C UU #### [place] [address] [place] Protein [Mass/Vol] 6.7 g/dL Normal 6.4-8.9 The [facility] Comment on above: Order Comment: Reaso n for Exam Mixed hyperlipidemia;Essential hypertension;Malignant neopla Performed By: #### C UU #### [place] [address] [place] Sodium [Moles/Vol] 137 mmol/L Normal 136-145 The [facility] Comment on above: Order Comment: Reaso n for Exam Mixed hyperlipidemia;Essential hypertension;Malignant neopla Performed By: #### C UU #### [place] [address] [place] Urea nitrogen [Mass/Vol] 20 mg/dL Normal 7-25 The [facility] Comment on above: Order Comment: Reaso n for Exam Mixed hyperlipidemia;Essential hypertension;Malignant neopla Performed By: #### C UU #### [place] [address] [place] Creatinine [Mass/volume] in Serum or PlasmaOrdered By: Vicky Oshea on 09-11-2024 Creatinine [Mass/Vol] Creatinine [Mass/v olume] in Serum or Plasma 0.60-1.20 [facility] Eosinophils Auto (Bld) [#/Vo l]Ordered By: Vicky Oshea on 09-11-2024 Eosinophils (Bld) [#/Vol] Automated eosinophil count 0.0-0.45 [facility] Eosinophils/100 WBC Auto (Bl d)Ordered By: Vicky Oshea on 09-11-2024 Eosinophils/100 WBC (Bld) Automated eosinophil % . [facility] Erythrocyte distribution wid th Auto (RBC) [Ratio]Ordered By: Vicky Oshea on 09-11-2024 Erythrocyte distribution width (RBC) [Ratio] Erythrocyte distribution width [Ratio] by Automated count 11.9-15.3 [facility] Globulin Calc (S) [Mass/Vol] Ordered By: Vicky Oshea on 09-11-2024 Globulin (S) [Mass/Vol] Serum globulin measurement by calculation (mass/volume) [facility] Glucose [Mass/volume] in Ser um or PlasmaOrdered By: Vicky Oshea on 09-11-2024 Glucose [Mass/Vol] Glucose [Mass/volume ] in Serum or Plasma High 70-100 [facility] Comment on above: ADA recommended refe rence rangeRandom Glucose Reference Range is dependent on time and content of last meal. Glucose of more than 200 mg/dL in a nonstressed, ambulatory subject supports the diagnosis of Diabetes Mellitus. Hematocrit Auto (Bld) [Volum e fraction]Ordered By: Vicky Oshea on 09-11-2024 Hematocrit (Bld) [Volume fraction] Hematocrit [Volume Fraction] of Blood by Automated count 34.0-46.4 [facility] Hemoglobin [Mass/volume] in BloodOrdered By: Vicky Oshea 09-11-2024 Hemoglobin (Bld) [Mass/Vol] Hemoglobin [Mass/volume] in Blood Low 11.8-15.4 [facility] Iron [Mass/volume] in Serum or PlasmaOrdered By: Vicky Oshea on 09-11-2024 Iron [Mass/Vol] Iron [Mass/volume] i n Serum or Plasma Low 50-212 [facility] Iron and TIBC Profileon 08-19 % Iron Saturation 8.4 % Low 20-50 The [facility] Comment on above: Order Comment: Reaso n for Exam Mixed hyperlipidemia;Essential hypertension;Malignant neopla Performed By: #### C UU #### [facility] [address] Iron [Mass/Vol] 32 ug/dL Low 50-212 The [facility] Comment on above: Order Comment: Reaso n for Exam Mixed hyperlipidemia;Essential hypertension;Malignant neopla Performed By: #### C UU #### [facility] [address] [place] [address] Total Iron Binding Capacity 379 ug/dL Normal 255-450 The [facility] Comment on above: Order Comment: Reaso n for Exam Mixed hyperlipidemia;Essential hypertension;Malignant neopla Performed By: #### C UU #### [facility] [address] [place] [address] Transferrin [Mass/Vol] 271 mg/dL Normal 203-362 Th e [facility] Comment on above: Order Comment: Reaso n for Exam Mixed hyperlipidemia;Essential hypertension;Malignant neopla Result Comment: PERF ORMED BY: [place] [address] PATHOLOGIST ENERGY TECHNICIAN RODOLFO BOONE M.D. Performed By: #### C UU #### [facility] [address] [place] [address] Leukocytes [#/volume] correc gilma for nucleated erythrocytes in Blood by Automated counOrdered By: Vicky Oshea on 09-11-2024 WBC corrected for nucl RBC Auto (Bld) [#/Vol] Leukocytes [#/volume] corrected for nucleated erythrocytes in Blood by Automated coun High 3.8-11.6 [facility] Lymphocytes Auto (Bld) [#/Vo l]Ordered By: Vicky Oshea on 09-11-2024 Lymphocytes (Bld) [#/Vol] Lymphocytes [#/volume] in Blood by Automated count 1.00-4.8 [facility] Lymphocytes/100 WBC Auto (Bl d)Ordered By: Vicky Oshea on 09-11-2024 Lymphocytes/100 WBC (Bld) Lymphocytes/100 leukocytes in Blood by Automated count . [facility] MCH Auto (RBC) [Entitic mass ]Ordered By: Vicky Oshea on 09-11-2024 MCH (RBC) [Entitic mass] MCH [Entitic mass] by Automated count 24.7-34.3 [facility] MCHC Auto (RBC) [Mass/Vol]Or dered By: Vicky Oshea on 09-11-2024 MCHC (RBC) [Mass/Vol] MCHC [Mass/volume] by Automated count 32.0-35.0 [facility] MCV Auto (RBC) [Entitic vol] Ordered By: Vicky Oshea on 09-11-2024 MCV (RBC) [Entitic vol] MCV [Entitic volume] by Automated count 80-100 [facility] Monocytes Auto (Bld) [#/Vol] Ordered By: Vicky Oshea on 09-11-2024 Monocytes (Bld) [#/Vol] Automated blood monocyte count High 0.0-0.8 [facility] Monocytes/100 WBC Auto (Bld) Ordered By: Vicky Oshea on 09-11-2024 Monocytes/100 WBC (Bld) Automated monocyte % . [facility] Neutrophils Auto (Bld) [#/Vo l]Ordered By: Vicky Oshea on 09-11-2024 Neutrophils (Bld) [#/Vol] Neutrophils [#/volume] in Blood by Automated count High 1.8-7.7 [facility] Neutrophils/100 WBC Auto (Bl d)Ordered By: Vicky Oshea on 09-11-2024 Neutrophils/100 WBC (Bld) Automated neutrophil % . [facility] No Panel InformationOrdered By: Vicky Oshea on 09-11-2024 Estimated GFR (CKD-EPI) > 60.0 mL/Min [facility] Creatinine Clearance (Chem N/A [facility] Nucleated erythrocytes [Pres ence] in Blood by Automated countOrdered By: Vicky Oshea on 09-11-2024 Nucleated RBC Auto Ql (Bld) Nucleated erythrocytes [Presence] in Blood by Automated count 0-0.5 [facility] Platelet mean volume Auto (B ld) [Entitic vol]Ordered By: Vicky Oshea on 09-11-2024 Platelet mean volume (Bld) [Entitic vol] Platelet mean volume [Entitic volume] in Blood by Automated count 6.3-10.7 [facility] Platelets Auto (Bld) [#/Vol] Ordered By: Vicky Oshea on 09-11-2024 Platelets (Bld) [#/Vol] Platelets [#/volume] in Blood by Automated count 150-450 [facility] Potassium [Moles/volume] in Serum or PlasmaOrdered By: Vicky Oshea on 09-11-2024 Potassium [Moles/Vol] Potassium [Moles/v olume] in Serum or Plasma 3.5-5.1 [facility] Protein [Mass/volume] in Ser um or PlasmaOrdered By: Vicky Oshea on 09-11-2024 Protein [Mass/Vol] Protein [Mass/volume ] in Serum or Plasma 6.4-8.9 [facility] RBC Auto (Bld) [#/Vol]Ordere d By: Vicky Oshea on 09-11-2024 RBC (Bld) [#/Vol] Erythrocytes [#/volu me] in Blood by Automated count 3.60-5.00 [facility] Serum or plasma albumin/glob ulin mass ratioOrdered By: Vicky Oshea on 09-11-2024 Albumin/Globulin [Mass ratio] Serum or plasma albumin/globulin mass ratio [facility] Serum or plasma anion gap de terminationOrdered By: Vicky Oshea on 09-11-2024 Anion gap [Moles/Vol] Serum or plasma an ion gap determination 6.0-15.0 [facility] Serum or plasma iron binding capacity measurement (mass/volume)Ordered By: Vicky Oshea on 09-11-2024 Iron binding capacity [Mass/Vol] Iron binding capacity [Mass/volume] in Serum or Plasma 255-450 [facility] Serum or plasma iron saturat ion measurement (mass fraction)Ordered By: Vicky Oshea on 09-11-2024 Iron saturation [Mass fraction] Iron saturation [Mass Fraction] in Serum or Plasma Low 20-50 [facility] Sodium [Moles/volume] in Ser um or PlasmaOrdered By: Vicky Oshea on 09-11-2024 Sodium [Moles/Vol] Sodium [Moles/volume ] in Serum or Plasma 136-145 [facility] Transferrin [Mass/volume] in Serum or PlasmaOrdered By: Vicky Oshea on 09-11-2024 Transferrin [Mass/Vol] Transferrin [Mass /volume] in Serum or Plasma 203-362 [facility] Urea nitrogen [Mass/volume] in Serum or PlasmaOrdered By: Vicky Oshea on 09-11-2024 Urea nitrogen [Mass/Vol] Urea nitrogen [Mass/volume] in Serum or Plasma 7-25 [facility] WBC Auto (Bld) [#/Vol]Ordere d By: Vicky Oshea on 09-11-2024 WBC (Bld) [#/Vol] Leukocytes [#/volume ] in Blood by Automated count High 3.8-11.6 [facility] CBC W Auto Differential pane l (Bld)on 09-05-2024 Interpretation and review of laboratory results Abnormal [facility] MCHC (RBC) [Mass/Vol] 33.3 % 33.0 - 37.0 % [facility] Segmented neutrophils/100 WBC (Bld) 62.6 % [facility] CBC With Platelet and Differ entialon 09-05-2024 Basophils (Bld) [#/Vol] 0.0 10*3/uL Normal 0.0-0.2 [facility] Comment on above: Performed By: #### C BCWD #### [facility] [address] [place] [address] Basophils/100 WBC (Bld) 0.1 % Normal [facility] Comment on above: Performed By: #### C BCWD #### [facility] [address] [place] [address] Eosinophils (Bld) [#/Vol] 0.2 10*3/uL Normal 0.0-0.7 [facility] Comment on above: Performed By: #### C BCWD #### [facility] [address] [place] [address] Eosinophils/100 WBC (Bld) 1.1 % Normal [facility] Comment on above: Performed By: #### C BCWD #### [facility] [address] [place] [address] Erythrocyte distribution width (RBC) [Ratio] 14.2 % Normal 11.5-14.5 [facility] Comment on above: Performed By: #### C BCWD #### [facility] [address] [place] [address] Hematocrit (Bld) [Volume fraction] 37.5 % Normal 37.0-47.0 [facility] [employer] [facility] Comment on above: Performed By: #### C BCWD #### [facility] [address] [place] [address] Hemoglobin (Bld) [Mass/Vol] 12.5 g/dL Normal 12.0-16.0 [facility] Comment on above: Performed By: #### C BCWD #### [facility] [address] [place] [address] Lymphocytes (Bld) [#/Vol] 4.1 10*3/uL Normal 1.0-4.8 [facility] Comment on above: Performed By: #### C BCWD #### [facility] [address] [place] [address] Lymphocytes/100 WBC (Bld) 27.4 % Normal [facility] Comment on above: Performed By: #### C BCWD #### [facility] [address] [place] [address] MCH (RBC) [Entitic mass] 28.5 pg Normal 27.0-31.3 [facility] Comment on above: Performed By: #### C BCWD #### [facility] [address] [place] [address] MCHC 33.3 % Normal 33.0-37.0 [facility] Comment on above: Performed By: #### C BCWD #### [facility] [address] [place] [address] MCV (RBC) [Entitic vol] 85.6 fL Normal 79.4-94.8 [facility] Comment on above: Performed By: #### C BCWD #### [facility] [address] [place] [address] Monocytes (Bld) [#/Vol] 1.2 10*3/uL Critically high 0.2-0.8 [facility] Comment on above: Performed By: #### C BCWD #### [facility] [address] [place] [address] Monocytes/100 WBC (Bld) 7.8 % Normal [facility] Comment on above: Performed By: #### C BCWD #### [facility] [address] [place] [address] Neutrophils (Bld) [#/Vol] 9.4 10*3/uL Critically high 1.4-6.5 [facility] Comment on above: Performed By: #### C BCWD #### [facility] [address] [place] [address] Neutrophils/100 WBC (Bld) 62.6 % Normal [facility] Comment on above: Performed By: #### C BCWD #### [facility] [address] [place] [address] Platelets (Bld) [#/Vol] 254 10*3/uL Normal 130-400 [facility] Comment on above: Performed By: #### C BCWD #### [facility] [address] [place] [address] RBC (Bld) [#/Vol] 4.38 10*6/uL Normal 4.20-5.40 [facility] Comment on above: Performed By: #### C BCWD #### [facility] [address] [place] [address] WBC (Bld) [#/Vol] 15.0 10*3/uL Critically high 4.8-10.8 [facility] Comment on above: Performed By: #### C BCWD #### [facility] [address] [place] [address] Comprehensive Metabolic Pane margarita 09-05-2024 Albumin [Mass/Vol] 3.6 g/dL Normal 3.5-4.6 [facility] Comment on above: Performed By: #### C MP #### [facility] [address] [place] [address] ALP [Catalytic activity/Vol] 94 U/L Normal 40-130 [facility] Comment on above: Performed By: #### C MP #### [facility] [address] [place] [address] ALT [Catalytic activity/Vol] 26 U/L Normal 0-33 [facility] Comment on above: Performed By: #### C MP #### [facility] [address] [place] [address] Anion gap [Moles/Vol] 12 mmol/L Normal 9-15 [facility] Comment on above: Performed By: #### C MP #### [facility] [address] [place] [address] AST [Catalytic activity/Vol] 25 U/L Normal 0-35 [facility] Comment on above: Performed By: #### C MP #### [facility] [address] [place] [address] Bilirubin [Mass/Vol] mg/dL Normal 0.2-0.7 [facility] Comment on above: Performed By: #### C MP #### [facility] [address] [place] [address] Calcium [Mass/Vol] 9.2 mg/dL Normal 8.5-9.9 [facility] Comment on above: Performed By: #### C MP #### [facility] [address] [place] [address] Chloride [Moles/Vol] 100 mmol/L Normal 95-107 [facility] Comment on above: Performed By: #### C MP #### [facility] [address] [place] [address] CO2 [Moles/Vol] 25 mmol/L Normal 20-31 [facility] Comment on above: Performed By: #### C MP #### [facility] [address] [place] [address] Creatinine [Mass/Vol] 0.81 mg/dL Normal 0.50-0.90 [facility] Comment on above: Performed By: #### C MP #### [facility] [address] [place] [address] GFR 77.6 Normal >60 [facility] Comment on above: Result Comment: Pedi atric calculator link https://www.kidney.org/professionals/kdoqi/gfr_calculatorped Effective Apr 19, 2022 These results are not intended for use in patients <18 years of age. eGFR results are calculated without a race factor using the 2020 CKD-EPI equation. Careful clinical correlation is recommended, particularly when comparing to results calculated using previous equations. The CKD-EPI equation is less accurate in patients with extremes of muscle mass, extra-renal metabolism of creatinine, excessive creatinine ingestion, or following therapy that affects renal tubular secretion. Performed By: #### C MP #### [facility] [address] [place] [address] Globulin (S) [Mass/Vol] 3.4 g/dL Normal 2.3-3.5 [facility] Comment on above: Performed By: #### C MP #### [facility] [address] [place] [address] Glucose [Mass/Vol] 122 mg/dL Critically high 70-99 M [facility] Comment on above: Performed By: #### C MP #### [facility] [address] [place] [address] Potassium [Moles/Vol] 3.3 mmol/L Low 3.4-4.9 [facility] Comment on above: Performed By: #### C MP #### [facility] [address] [place] [address] Protein [Mass/Vol] 7.0 g/dL Normal 6.3-8.0 [facility] Comment on above: Performed By: #### C MP #### [facility] [address] [place] [address] Sodium [Moles/Vol] 137 mmol/L Normal 135-144 [facility] Comment on above: Performed By: #### C MP #### [facility] [address] [place] [address] Urea nitrogen [Mass/Vol] 29 mg/dL Critically high 8-23 [facility] Comment on above: Performed By: #### C MP #### [facility] [address] [place] [address] Comprehensive metabolic 2000 panelon 09-05-2024 Albumin [Mass/Vol] 3.6 g/dL 3.5 - 4.6 g/dL [facility] ALP [Catalytic activity/Vol] 94 U/L 40 - 130 U/L [facility] ALT [Catalytic activity/Vol] 26 U/L 0 - 33 U/L [facility] Anion gap [Moles/Vol] 12 mmol/L [facility] AST [Catalytic activity/Vol] 25 U/L 0 - 35 U/L [facility] Bilirubin [Mass/Vol] mg/dL 0.2 - 0 .7 mg/dL [facility] Calcium [Mass/Vol] 9.2 mg/dL 8.5 - 9.9 mg/dL [facility] Chloride [Moles/Vol] 100 mmol/L [facility] CO2 [Moles/Vol] 25 mmol/L [facility] Creatinine [Mass/Vol] 0.81 mg/dL 0.50 - 0.90 mg/dL [facility] GFR/1.73 sq M.predicted among non-blacks MDRD (S/P/Bld) [Vol rate/Area] 77.6 mL/min/{1.73_m2} 60 - PINF [facility] Comment on above: Pediatric calculator link https://www.kidney.org/professionals/kdoqi/gfr_calculatorped Effective Apr 19, 2022 These results are not intended for use in patients <18 years of age. eGFR results are calculated without a race factor using the 2020 CKD-EPI equation. Careful clinical correlation is recommended, particularly when comparing to results calculated using previous equations. The CKD-EPI equation is less accurate in patients with extremes of muscle mass, extra-renal metabolism of creatinine, excessive creatinine ingestion, or following therapy that affects renal tubular secretion. Globulin (S) [Mass/Vol] 3.4 g/dL 2.3 - 3.5 g/dL [facility] Glucose [Mass/Vol] 122 mg/dL High 70 - 99 mg/dL [facility] Interpretation and review of laboratory results Abnormal [facility] Potassium [Moles/Vol] 3.3 mmol/L Low [facility] Protein [Mass/Vol] 7.0 g/dL 6.3 - 8.0 g/dL [facility] Sodium [Moles/Vol] 137 mmol/L [facility] Urea nitrogen [Mass/Vol] 29 mg/dL High 8 - 23 mg/dL [facility] Culture, Bloodon 09-05-2024 Microscopic examination of blood, culture ORDER#: [id number] ORDERED BY: SENIA SWEENEY SOURCE: Blood COLLECTED: 09/05/24 18:18 ANTIBIOTICS AT [place].: RECEIVED : 09/05/24 18:18 Culture, Blood FINAL 09/10/24 20:15 No growth after 5 days of incubation. [facility] Comment on above: Performed By: #### C XBL #### [facility] [address] [place] [address] Culture, Blood 2on 5 Culture, Blood 2 ORDER#: [id number] OR DERED BY: SENIA SWEENEY SOURCE: Blood COLLECTED: 09/05/24 18:19 ANTIBIOTICS AT LEEANNE.: RECEIVED : 09/05/24 18:19 Culture, Blood 2 FINAL 09/10/24 20:15 No growth after 5 days of incubation. [facility] Comment on above: Performed By: #### C XBL2 #### [facility] [address] [place] [address] High Sensitivity Troponin To n 09-05-2024 High Sensitivity Troponin T 16 ng/L Normal 0-19 [facility] Comment on above: Result Comment: High Sensitivity Troponin values cannot be compared with other Troponin methodologies. Performed By: #### T RP5 #### [facility] [address] [place] [address] Lactate (BldV) [Moles/Vol]on 09-05-2024 [facility] Lactic Acidon 09-05-2024 Lactate (BldV) [Moles/Vol] 1.0 mmol/L 0.5 - 2.2 mmol/L [facility] Lactate [Moles/Vol] 1.0 mmol/L Normal 0.5-2.2 [facility] Comment on above: Performed By: #### L ACID #### [facility] [address] [place] [address] No Panel Informationon 09-05 [facility] Portable XR Chest AP single viewon 09-05-2024 No acute process. [facility] RADIOLOGY EXAMINATION: ONE XRAY VIEW OF THE CHEST 09/05/2024 6:04 pm COMPARISON: August 31, 2024 HISTORY: ORDERING SYSTEM PROVIDED HISTORY: SOB TECHNOLOGIST PROVIDED HISTORY: Reason for exam:->SOB What reading provider will be dictating this exam?->CRC FINDINGS: The lungs are without acute focal process. There is no effusion or pneumothorax. The cardiomediastinal silhouette is without acute process. The osseous structures are without acute process. [facility] RADIOLOGY Orlando Mccall MD - 09/05 EXAMINATION: ONE XRAY VIEW OF THE CHEST 09/05/2024 6:04 pm COMPARISON: August 31, 2024 HISTORY: ORDERING SYSTEM PROVIDED HISTORY: SOB TECHNOLOGIST PROVIDED HISTORY: Reason for exam:->SOB What reading provider will be dictating this exam?->CRC FINDINGS: The lungs are without acute focal process. There is no effusion or pneumothorax. The cardiomediastinal silhouette is without acute process. The osseous structures are without acute process. IMPRESSION: No acute process. [facility] Radiology Study observation (narrative) [facility] Portable XR Chest AP single viewOrdered By: Orlando Mccall on 09-05-2024 [facility] Work Phone: Procalcitoninon 09-05-2024 Procalcitonin IA [Mass/Vol] 0.25 ng/mL High 0.00 - 0.15 ng/mL [facility] Comment on above: Suspected Sepsis: Low likelihood of sepsis <.50 ng/mL Increased likelihood of sepsis 0.50-2.00 ng/mL Antibiotics encouraged High risk of sepsis/shock >2.00 ng/mL Antibiotics strongly encouraged Suspected Lower Respiratory Tract Infections: Low likelihood of bacterial infection <0.24 ng/mL Increased likelihood of bacterial infection >0.24 ng/mL Antibiotics encouraged With successful antibiotic therapy, PCT levels should decrease rapidly. (Half-life of 24 to 36 hours.) Procalcitonin values from samples collected within the first 6 hours of systemic infection may still be low. Retesting may be indicated. Values from day 1 and day 4 can be entered into the Change in Procalcitonin Calculator to determine the patient's Mortality Risk Prognosis ([email or web address]) In healthy neonates, plasma Procalcitonin (PCT) concentrations increase gradually after , reaching peak values at about 24 hours of age then decrease to normal values below 0.5 ng/mL by 48-72 hours of age. Procalcitonin 0.25 ng/mL Critically high 0.00-0.15 [facility] Comment on above: Result Comment: Susp ected Sepsis: Low likelihood of sepsis <.50 ng/mL Increased likelihood of sepsis 0.50-2.00 ng/mL Antibiotics encouraged High risk of sepsis/shock >2.00 ng/mL Antibiotics strongly encouraged Suspected Lower Respiratory Tract Infections: Low likelihood of bacterial infection <0.24 ng/mL Increased likelihood of bacterial infection >0.24 ng/mL Antibiotics encouraged With successful antibiotic therapy, PCT levels should decrease rapidly. (Half-life of 24 to 36 hours.) Procalcitonin values from samples collected within the first 6 hours of systemic infection may still be low. Retesting may be indicated. Values from day 1 and day 4 can be entered into the Change in Procalcitonin Calculator to determine the patient's Mortality Risk Prognosis ([email or web address]) In healthy neonates, plasma Procalcitonin (PCT) concentrations increase gradually after , reaching peak values at about 24 hours of age then decrease to normal values below 0.5 ng/mL by 48-72 hours of age. Performed By: #### P ROCT #### [facility] [address] [place] [address] Procalcitonin IA [Mass/Vol]o n 09-05-2024 Interpretation and review of laboratory results Abnormal [facility] Prothrombin Timeon INR Coag (PPP) [Relative time] 1.2 {INR} Normal [facility] Comment on above: Performed By: #### P T #### [facility] [address] [place] [address] PT Coag (PPP) [Time] 15.6 s Critically high 12.3-14.9 [facility] Comment on above: Performed By: #### P T #### [facility] [address] [place] [address] Protime-INRon 09-05-2024 INR Coag (PPP) [Relative time] 1.2 {INR} [facility] Interpretation and review of laboratory results Abnormal [facility] PT Coag (PPP) [Time] 15.6 s High [facility] Troponinon 09-05-2024 Troponin, High Sensitivity 16 ng/L 0 - 19 ng/L [facility] Comment on above: High Sensitivity Tro ponin values cannot be compared with other Troponin methodologies. XR CHEST PORTABLEon 09-05-19 XR CHEST PORTABLE EXAMINATION: ONE XRAY VIEW OF THE CHEST 09/05/2024 6:04 pm COMPARISON: August 31, 2024 HISTORY: ORDERING SYSTEM PROVIDED HISTORY: SOB TECHNOLOGIST PROVIDED HISTORY: Reason for exam:->SOB What reading provider will be dictating this exam?->CRC FINDINGS: The lungs are without acute focal process. There is no effusion or pneumothorax. The cardiomediastinal silhouette is without acute process. The osseous structures are without acute process. IMPRESSION: No acute process. Interpreted by: Orlando Mccall MD Signed by: Orlando Mccall MD 09/05/24 Final result Normal [facility] CBC with Auto Differentialon 09-03-2024 Absolute Bands 0.42 [place] [facility] Bands 3 % 0 - 10 % [facility] Basophils (Bld) [#/Vol] 0.00 10*3/uL [facility] Basophils/100 WBC (Bld) 0 % 0 - 2 % [facility] Eosinophils (Bld) [#/Vol] 0.00 10*3/uL [facility] Eosinophils/100 WBC (Bld) 0 % 0 - 4 % [facility] Erythrocyte distribution width (RBC) [Ratio] 14.6 % 11.5 - 14.9 % [facility] Hematocrit (Bld) [Volume fraction] 40.6 % 36 - 46 % [facility] Hemoglobin (Bld) [Mass/Vol] 12.9 g/dL 12.0 - 16.0 g/dL [facility] Interpretation and review of laboratory results Abnormal [facility] Lymphocytes/100 WBC (Bld) 23 % Low 24 - 44 % [facility] Lymphocytes/100 WBC (Bld) 3.22 % [facility] MCH (RBC) [Entitic mass] 28.0 pg 26 - 34 pg [facility] MCHC (RBC) [Mass/Vol] 31.7 g/dL 31 - 3 7 g/dL [facility] MCV (RBC) [Entitic vol] 88.1 fL 80 - 100 fL [facility] Monocytes/100 WBC (Bld) 8 % High 1 - 7 % [facility] Monocytes/100 WBC (Bld) 1.12 % [facility] Morphology [place] (Bld) [Interp] ANISOCYTOSIS PRESENT [facility] Myelocytes 2 % High 0 [facility] Myelocytes Absolute 0.28 High 0 k/uL [facility] Neutrophils/100 WBC (Bld) 64 % 36 - 66 % [facility] Platelet mean volume (Bld) [Entitic vol] 8.8 fL 6.0 - 12.0 fL [facility] Platelets (Bld) [#/Vol] 203 10*3/uL [facility] RBC (Bld) [#/Vol] 4.60 10*6/uL 4.0 - 5.2 m/uL [facility] Segmented neutrophils/100 WBC (Bld) 8.96 % [facility] WBC other (Bld) [#/Vol] 14.0 High [facility] CBC with Diffon 09-03-2024 Abs. Bands 0.42 k/uL Normal 0.0-1.0 [facility] Comment on above: Performed By: #### B MPX, CDP, MG #### [facility] [address] [place] [address] Director Of Student Life: Anurag Menjivar DO Abs. Basophil 0.00 k/uL Normal 0.0-0.2 [facility] Comment on above: Performed By: #### B MPX, CDP, MG #### [facility] [address] [place] [address] Director Of Student Life: Anurag Menjivar DO Abs. Myelocyte 0.28 k/uL High 0 [facility] Comment on above: Performed By: #### B MPX, CDP, MG #### [facility] [address] [place] [address] Director Of Student Life: Anurag Menjivar DO Abs.Neutrophil (Seg) 8.96 k/uL Normal 1.3-9.[address] [facility] Comment on above: Performed By: #### B MPX, CDP, MG #### [facility] [address] [place] [address] Director Of Student Life: Anurag Menjivar DO Bands 3 % Normal 0-10 [facility] Comment on above: Performed By: #### B MPX, CDP, MG #### [facility] [address] [place] [address] Director Of Student Life: Anurag Menjivar DO Basophils/100 WBC (Bld) 0 % Normal 0-2 [facility] Comment on above: Performed By: #### B MPX, CDP, MG #### [facility] [address] [facility] [place] [address] Director Of Student Life: Anurag Menjivar DO Eosinophils (Bld) [#/Vol] 0.00 10*3/uL Normal 0.0-0.4 [facility] Comment on above: Performed By: #### B MPX, CDP, MG #### [facility] [address] [facility] [place] [address] Director Of Student Life: Anurag Menjivar DO Eosinophils/100 WBC (Bld) 0 % Normal 0-4 [facility] Comment on above: Performed By: #### B MPX, CDP, MG #### [facility] [place] [address] Director Of Student Life: Anurag Menjivar DO Lymphocytes (Bld) [#/Vol] 3.22 10*3/uL Normal 1.0-4.8 [facility] Comment on above: Performed By: #### B MPX, CDP, MG #### [facility] [place] [address] Director Of Student Life: Anurag Menjivar DO Lymphocytes/100 WBC (Bld) 23 % Low 24-44 [facility] Comment on above: Performed By: #### B MPX, CDP, MG #### [facility] [facility] [place] [address] Director Of Student Life: Anurag Menjivar DO Monocytes (Bld) [#/Vol] 1.12 10*3/uL Normal 0.1-1.3 [facility] Comment on above: Performed By: #### B MPX, CDP, MG #### [facility] [address] [facility] [place] [address] Director Of Student Life: Anurag Menjivar DO Monocytes/100 WBC (Bld) 8 % High 1-7 [facility] Comment on above: Performed By: #### B MPX, CDP, MG #### [facility] [place] [address] Director Of Student Life: Anurag Menjivar DO Morphology [place] (Bld) [Interp] ANISOCYTOSIS PRESENT Normal [facility] Comment on above: Performed By: #### B MPX, CDP, MG #### [facility] [place] [address] Director Of Student Life: Anurag Menjivar DO Myelocyte 2 % High 0 [facility] Comment on above: Performed By: #### B MPX, CDP, MG #### [facility] [place] [address] Director Of Student Life: Anurag Menjivar DO Neutrophil (Seg) 64 % Normal 36-66 [facility] Comment on above: Performed By: #### B MPX, CDP, MG #### [facility] [address] [place] [address]. [place] [address] Director Of Student Life: Anurag Menjivar DO Erythrocyte distribution width (RBC) [Ratio] 14.6 % Normal 11.5-14.9 [facility] Comment on above: Performed By: #### B MPX, CDP, MG #### [facility] [place] [address] Director Of Student Life: Anurag Menjivar DO Hematocrit (Bld) [Volume fraction] 40.6 % Normal 36-46 [facility] Comment on above: Performed By: #### B MPX, CDP, MG #### [facility] [address] [place] [address] Director Of Student Life: Anurag Menjivar DO Hemoglobin (Bld) [Mass/Vol] 12.9 g/dL Normal 12.0-16.0 [facility] Comment on above: Performed By: #### B MPX, CDP, MG #### [facility] [address] [place] [address] Director Of Student Life: Anurag Menjivar DO MCH (RBC) [Entitic mass] 28.0 pg Normal 26-34 [facility] Comment on above: Performed By: #### B MPX, CDP, MG #### [facility] [address] [place] [address] Director Of Student Life: Anurag Menjivar DO MCHC (RBC) [Mass/Vol] 31.7 g/dL Normal 31-37 [facility] Comment on above: Performed By: #### B MPX, CDP, MG #### [facility] [address] [place] [address] Director Of Student Life: Anurag Menjivar DO MCV (RBC) [Entitic vol] 88.1 fL Normal 80-100 [facility] Comment on above: Performed By: #### B MPX, CDP, MG #### [facility] [address] [place] [address] Director Of Student Life: Anurag Menjivar DO Platelet mean volume (Bld) [Entitic vol] 8.8 fL Normal 6.0-12.0 [facility] Comment on above: Performed By: #### B MPX, CDP, MG #### [facility] [address] [place] [address] Director Of Student Life: Anurag Menjivar DO Platelets (Bld) [#/Vol] 203 10*3/uL Normal 150-450 [facility] Comment on above: Performed By: #### B MPX, CDP, MG #### [facility] [address] [place] [address] Director Of Student Life: Anurag Menjivar DO RBC (Bld) [#/Vol] 4.60 10*6/uL Normal 4.0-5.2 [facility] Comment on above: Performed By: #### B MPX, CDP, MG #### [facility] [address] [place] [address] Director Of Student Life: Anurag Menjivar DO WBC (Bld) [#/Vol] 14.0 10*3/uL High 3.5-11.0 [facility] Comment on above: Performed By: #### B MPX, CDP, MG #### [facility] [address] [facility] [place] [address] Director Of Student Life: Anurag Menjivar DO Comp Metabolic Pr/rfx MGon 0 - Albumin [Mass/Vol] 4.0 g/dL Normal 3.5-5.2 [facility] Comment on above: Performed By: #### B MPX, CDP, MG #### [facility] [address] [facility] [place] [address] Director Of Student Life: Anurag Menjivar DO Alkaline Phos 107 U/L High 35-104 [facility] Comment on above: Performed By: #### B MPX, CDP, MG #### [facility] [address] [facility] [place] [address] Director Of Student Life: Anurag Menjivar DO ALT [Catalytic activity/Vol] 35 U/L Normal 10-35 [facility] Comment on above: Performed By: #### B MPX, CDP, MG #### [facility] [address] [place] [address] Director Of Student Life: Fanelly, Anurag, DO Anion gap [Moles/Vol] 12 mmol/L Normal 9-16 [facility] Comment on above: Performed By: #### B MPX, CDP, MG #### [facility] [address] [place] [address] Director Of Student Life: Anurag Menjivar DO AST [Catalytic activity/Vol] 42 U/L High 10-35 [facility] Comment on above: Performed By: #### B MPX, CDP, MG #### [facility] [address] [place] [address] Director Of Student Life: Anurag Menjivar DO Bilirubin [Mass/Vol] 0.4 mg/dL Normal 0.0-1.[address] [facility] Comment on above: Performed By: #### B MPX CDP, MG #### [facility] [place] [address] Director Of Student Life: Anurag Menjivar DO Calcium [Mass/Vol] 9.2 mg/dL Normal 8.6-10.4 [facility] Comment on above: Performed By: #### B TOM BAL, MG #### [facility] [place] [address] Director Of Student Life: Anurag Menjivar DO Chloride [Moles/Vol] 102 mmol/L Normal 98-[address] [facility] Comment on above: Performed By: #### B MPX, CDP, MG #### [facility] [place] [address] Director Of Student Life: Anurag Menjivar DO CO2 [Moles/Vol] 27 mmol/L Normal 20-31 [facility] Comment on above: Performed By: #### B MPX, CDP, MG #### [facility] [address] [place] [address] Director Of Student Life: Fanelly, Anurag, DO Creatinine [Mass/Vol] 0.5 mg/dL Low 0.7-1.2 [facility] Comment on above: Performed By: #### B MPX, CDP, MG #### [facility] [address] [facility] [place] [address] Director Of Student Life: Anurag Menjivar, DO GFR/1.73 sq M.predicted among non-blacks MDRD (S/P/Bld) [Vol rate/Area] mL/min/{1.73_m2} Normal >60 [facility] Comment on above: Result Comment: These results are not intended for use in patients <18 years of age. eGFR results are calculated without a race factor using the 2020 CKD-EPI equation. Careful clinical correlation is recommended, particularly when comparing to results calculated using previous equations. The CKD-EPI equation is less accurate in patients with extremes of muscle mass, extra-renal metabolism of creatine, excessive creatine ingestion, or following therapy that affects renal tubular secretion. Performed By: #### B MPX, CDP, MG #### [facility] [place] [address] Director Of Student Life: Anurag Menjivar DO Glucose [Mass/Vol] 107 mg/dL High 74-99 [facility] Comment on above: Performed By: #### B MPX, CDP, MG #### [facility] [place] [address] Director Of Student Life: Anurag Menjivar DO Potassium [Moles/Vol] 3.8 mmol/L Normal 3.7-5.3 [facility] Comment on above: Performed By: #### B MPX, CDP, MG #### [facility] [place] [address] Director Of Student Life: Anurag Menjivar DO Protein [Mass/Vol] 7.1 g/dL Normal 6.6-8.7 [facility] Comment on above: Performed By: #### B MPX, CDP, MG #### [facility] [address] [facility] [place] [address] Director Of Student Life: Anurag Menjivar DO Sodium [Moles/Vol] 141 mmol/L Normal 136-145 [facility] Comment on above: Performed By: #### B MPX, CDP, MG #### [facility] [address] [facility] [place] [address] Director Of Student Life: Anurag Menjivar DO Urea nitrogen [Mass/Vol] 12 mg/dL Normal 8-23 [facility] Comment on above: Performed By: #### B MPX, CDP, MG #### [facility] [address] [facility] [place] [address] Director Of Student Life: Anurag Menjivar DO Comprehensive Metabolic Pane l w/ Reflex to MGon 09-03-2024 Albumin [Mass/Vol] 4.0 g/dL 3.5 - 5.2 g/dL [facility] ALP [Catalytic activity/Vol] 107 U/L High 35 - 104 U/L [facility] ALT [Catalytic activity/Vol] 35 U/L 10 - 35 U/L [facility] Anion gap [Moles/Vol] 12 mmol/L 9 - 16 mmol/L [facility] AST [Catalytic activity/Vol] 42 U/L High 10 - 35 U/L [facility] Bilirubin [Mass/Vol] 0.4 mg/dL 0.0 - 1 .2 mg/dL [facility] Calcium [Mass/Vol] 9.2 mg/dL 8.6 - 10. 4 mg/dL [facility] Chloride [Moles/Vol] 102 mmol/L 98 - 10 7 mmol/L [facility] CO2 [Moles/Vol] 27 mmol/L 20 - 31 mmol/L [facility] Creatinine [Mass/Vol] 0.5 mg/dL Low 0.7 - 1.2 mg/dL [facility] Est, Glom Filt Rate - [facility] Comment on above: These results are not intended for use in patients <18 years of age. eGFR results are calculated without a race factor using the 2020 CKD-EPI equation. Careful clinical correlation is recommended, particularly when comparing to results calculated using previous equations. The CKD-EPI equation is less accurate in patients with extremes of muscle mass, extra-renal metabolism of creatine, excessive creatine ingestion, or following therapy that affects renal tubular secretion. Glucose [Mass/Vol] 107 mg/dL High 74 - 99 mg/dL [facility] Interpretation and review of laboratory results Abnormal [facility] Potassium [Moles/Vol] 3.8 mmol/L 3.7 - 5.3 mmol/L [facility] Protein [Mass/Vol] 7.1 g/dL 6.6 - 8.7 g/dL [facility] Sodium [Moles/Vol] 141 mmol/L 136 - 145 mmol/L [facility] Urea nitrogen [Mass/Vol] 12 mg/dL 8 - 23 mg/dL [facility] EKG 12 LeadOrdered By: Aaron Ann on 09-03-2024 Atrial Rate 60 BPM [facility] Work Phone: P [place] 29 degrees [employer] Work Phone: P-R Interval 112 ms [employer] Work Phone: Q-T Interval 400 ms [employer] Work Phone: QRS Duration 84 ms [facility] Work Phone: [phone] QTc Calculation (Bazett) 400 ms [facility] Work Phone: R [place] 46 degrees [employer] Work Phone: T [place] -107 degrees [employer] Work Phone: Ventricular Rate 60 BPM [email or web address] Work Phone: [facility] Work Phone: [phone] EKG 12 Leadon 09-03-2024 Normal sinus rhythm Nonspecific ST and T wave abnormality Abnormal ECG When compared with ECG of 30-AUG-2024 04:02, Premature atrial complexes are no longer Present ST no longer depressed in Inferior leads Nonspecific T wave abnormality has replaced inverted T waves in Inferior leads [facility] Cristian Vicente DO / Aaron Ann MD - 09/03/2024 Normal sinus rhythm Nonspecific ST and T wave abnormality Abnormal ECG When compared with ECG of 30-AUG-2024 04:02, Premature atrial complexes are no longer Present ST no longer depressed in Inferior leads Nonspecific T wave abnormality has replaced inverted T waves in Inferior leads [facility] Glucose,Whole Bloodon 2024 Glucose [Mass/Vol] 166 mg/dL High 65-105 [facility] Glucose [Mass/Vol] 129 mg/dL High 65-105 [facility] POC Glucose Fingerstickon Glucose [Mass/Vol] 166 mg/dL High 65 - 105 mg/dL [facility] Interpretation and review of laboratory results Abnormal [facility] Glucose [Mass/Vol] 129 mg/dL High 65 - 105 mg/dL [facility] Interpretation and review of laboratory results Abnormal [facility] Procalcitoninon 09-03-2024 Interpretation and review of laboratory results Abnormal [facility] Procalcitonin [Mass/Vol] 0.24 ng/mL High 0.00 - 0.09 ng/mL [facility] Comment on above: Suspected Sepsis: <0.50 ng/mL Low likelihood of sepsis. 0.50-2.00 ng/mL Increased likelihood of sepsis. Antibiotics encouraged. >2.00 ng/mL High risk of sepsis/shock. Antibiotics strongly encouraged. Suspected Lower Resp Tract Infections: <0.24 ng/mL Low likelihood of bacterial infection. >0.24 ng/mL Increased likelihood of bacterial infection. Antibiotics encouraged. With successful antibiotic therapy, PCT levels should decrease rapidly. (Half-life of 24 to 36 hours.) Procalcitonin values from samples collected within the first 6 hours of systemic infection may still be low. Retesting may be indicated. Values from day 1 and day 4 can be entered into the Change in Procalcitonin Calculator (www.pjqdmj-nhq-tusnhmmnlc.Livefyre) to determine the patient's Mortality Risk Prognosis In healthy neonates, plasma Procalcitonin (PCT) concentrations increase gradually after , reaching peak values at about 24 hours of age then decrease to normal values below 0.5 ng/mL by 48-72 hours of age. [facility] Procalcitonin 0.24 ng/mL High 0.00-0.09 [facility] Comment on above: Result Comment: Suspected Sepsis: <0.50 ng/mL Low likelihood of sepsis. 0.50-2.00 ng/mL Increased likelihood of sepsis. Antibiotics encouraged. >2.00 ng/mL High risk of sepsis/shock. Antibiotics strongly encouraged. Suspected Lower Resp Tract Infections: <0.24 ng/mL Low likelihood of bacterial infection. >0.24 ng/mL Increased likelihood of bacterial infection. Antibiotics encouraged. With successful antibiotic therapy, PCT levels should decrease rapidly. (Half-life of 24 to 36 hours.) Procalcitonin values from samples collected within the first 6 hours of systemic infection may still be low. Retesting may be indicated. Values from day 1 and day 4 can be entered into the Change in Procalcitonin Calculator (www.atzdov-wrx-rejdfmtnoy.Livefyre) to determine the patient's Mortality Risk Prognosis In healthy neonates, plasma Procalcitonin (PCT) concentrations increase gradually after , reaching peak values at about 24 hours of age then decrease to normal values below 0.5 ng/mL by 48-72 hours of age. Performed By: #### B C #### [facility] [address] [facility] [place] [address] Director Of Student Life: Anurag Menjivar DO [address] [id number] Director Of Student Life: Ashish Goetz MD Basic Metab w/rfx MGon 09-02 Anion gap [Moles/Vol] 10 mmol/L Normal 9-16 [facility] Comment on above: Performed By: #### B MPX, CDP, MG #### [facility] [address] [facility] [place] [address] Director Of Student Life: Anurag Menjivar DO Calcium [Mass/Vol] 8.7 mg/dL Normal 8.6-10.4 [facility] Comment on above: Performed By: #### B MPX, CDP, MG #### [facility] [address] [place] [address] Director Of Student Life: Anurag Menjivar DO Chloride [Moles/Vol] 102 mmol/L Normal 98-[address] [facility] Comment on above: Performed By: #### B MPX, CDP, MG #### [facility] [address] [facility] [place] [address] Director Of Student Life: Anurag Menjivar DO CO2 [Moles/Vol] 31 mmol/L Normal 20-31 [facility] Comment on above: Performed By: #### B MPX, CDP, MG #### [facility] [address] [facility] [place] [address] Director Of Student Life: Anurag Menjivar DO Creatinine [Mass/Vol] 0.5 mg/dL Low 0.7-1.2 [facility] Comment on above: Performed By: #### B MPX, CDP, MG #### [facility] [address] [facility] [place] [address] Director Of Student Life: Anurag Menjivar DO GFR/1.73 sq M.predicted among non-blacks MDRD (S/P/Bld) [Vol rate/Area] mL/min/{1.73_m2} Normal >60 [facility] Comment on above: Result Comment: These results are not intended for use in patients <18 years of age. eGFR results are calculated without a race factor using the 2020 CKD-EPI equation. Careful clinical correlation is recommended, particularly when comparing to results calculated using previous equations. The CKD-EPI equation is less accurate in patients with extremes of muscle mass, extra-renal metabolism of creatine, excessive creatine ingestion, or following therapy that affects renal tubular secretion. Performed By: #### B MPX, CDP, MG #### [facility] [address] [place] [address] Director Of Student Life: Anurag Menjivar DO Glucose [Mass/Vol] 131 mg/dL High 74-99 [facility] Comment on above: Performed By: #### B MPX, CDP, MG #### [facility] [address] [facility] [place] [address] Director Of Student Life: Anurag Menjivar DO Potassium [Moles/Vol] 3.6 mmol/L Low 3.7-5.3 [facility] Comment on above: Performed By: #### B MPX, CDP, MG #### [facility] [address] [facility] [place] [address] Director Of Student Life: Anurag Menjivar DO Sodium [Moles/Vol] 143 mmol/L Normal 136-145 [facility] Comment on above: Performed By: #### B MPX, CDP, MG #### [facility] [address] [facility] [place] [address] Director Of Student Life: Anurag Menjivar DO Urea nitrogen [Mass/Vol] 11 mg/dL Normal 8-23 [facility] Comment on above: Performed By: #### B MPX, CDP, MG #### [facility] [facility] [place] [address] Director Of Student Life: Anurag Menjivar DO Basic Metabolic Panel w/ Ref tomasz to MGon 09-02-2024 Anion gap [Moles/Vol] 10 mmol/L 9 - 16 mmol/L [facility] Calcium [Mass/Vol] 8.7 mg/dL 8.6 - 10. 4 mg/dL [facility] Chloride [Moles/Vol] 102 mmol/L 98 - 10 7 mmol/L [facility] CO2 [Moles/Vol] 31 mmol/L 20 - 31 mmol/L [facility] Creatinine [Mass/Vol] 0.5 mg/dL Low 0.7 - 1.2 mg/dL [facility] Est, Bahman Copelandt Rate - PINF [facility] Comment on above: These results are not intended for use in patients <18 years of age. eGFR results are calculated without a race factor using the 2020 CKD-EPI equation. Careful clinical correlation is recommended, particularly when comparing to results calculated using previous equations. The CKD-EPI equation is less accurate in patients with extremes of muscle mass, extra-renal metabolism of creatine, excessive creatine ingestion, or following therapy that affects renal tubular secretion. Glucose [Mass/Vol] 131 mg/dL High 74 - 99 mg/dL [facility] Interpretation and review of laboratory results Abnormal [facility] Potassium [Moles/Vol] 3.6 mmol/L Low 3.7 - 5.3 mmol/L [facility] Sodium [Moles/Vol] 143 mmol/L 136 - 145 mmol/L [facility] Urea nitrogen [Mass/Vol] 11 mg/dL 8 - 23 mg/dL [facility] CBC with Auto Differentialon 09-02-2024 Absolute Bands 0.11 [facility] Bands 1 % 0 - 10 % [facility] Basophils (Bld) [#/Vol] 0.00 10*3/uL [facility] Basophils/100 WBC (Bld) 0 % 0 - 2 % [facility] Eosinophils (Bld) [#/Vol] 0.00 10*3/uL [facility] Eosinophils/100 WBC (Bld) 0 % 0 - 4 % [facility] Erythrocyte distribution width (RBC) [Ratio] 15.1 % High 11.5 - 14.9 % [facility] Hematocrit (Bld) [Volume fraction] 38.2 % 36 - 46 % [facility] Hemoglobin (Bld) [Mass/Vol] 12.4 g/dL 12.0 - 16.0 g/dL [facility] Interpretation and review of laboratory results Abnormal [facility] Lymphocytes/100 WBC (Bld) 26 % 24 - 44 % [facility] Lymphocytes/100 WBC (Bld) 2.91 % [facility] MCH (RBC) [Entitic mass] 28.5 pg 26 - 34 pg [facility] MCHC (RBC) [Mass/Vol] 32.3 g/dL 31 - 3 7 g/dL [facility] MCV (RBC) [Entitic vol] 88.3 fL 80 - 100 fL [facility] Monocytes/100 WBC (Bld) 3 % 1 - 7 % [facility] Monocytes/100 WBC (Bld) 0.34 % [facility] Morphology [place] (Bld) [Interp] ANISOCYTOSIS PRESENT [facility] Neutrophils/100 WBC (Bld) 70 % High 36 - 66 % [facility] Platelet mean volume (Bld) [Entitic vol] 8.8 fL 6.0 - 12.0 fL [facility] Platelets (Bld) [#/Vol] 183 10*3/uL [facility] RBC (Bld) [#/Vol] 4.33 10*6/uL 4.0 - 5.2 m/uL [facility] Segmented neutrophils/100 WBC (Bld) 7.84 % [facility] WBC other (Bld) [#/Vol] 11.2 High [facility] CBC with Diffon 09-02-2024 Abs. Bands 0.11 k/uL Normal 0.0-1.0 [facility] Comment on above: Performed By: #### B MPX, CDP, MG #### [facility] [address] [place] [address] Director Of Student Life: Anurag Menjivar DO Abs. Basophil 0.00 k/uL Normal 0.0-0.2 [facility] Comment on above: Performed By: #### B MPX, CDP, MG #### [facility] [address] [place] [address] Director Of Student Life: Anurag Menjivar DO Abs.Neutrophil (Seg) 7.84 k/uL Normal 1.3-9.[address] [facility] Comment on above: Performed By: #### B MPX, CDP, MG #### [facility] [address] [facility] [place] [address] Director Of Student Life: Anurag Menjivar DO Bands 1 % Normal 0-10 [facility] Comment on above: Performed By: #### B MPX, CDP, MG #### [facility] [address] [facility] [place] [address] Director Of Student Life: Anurag Menjivar DO Basophils/100 WBC (Bld) 0 % Normal 0-2 [facility] Comment on above: Performed By: #### B MPX, CDP, MG #### [facility] [address] [facility] [place] [address] Director Of Student Life: Anurag Menjivar DO Eosinophils (Bld) [#/Vol] 0.00 10*3/uL Normal 0.0-0.4 [facility] Comment on above: Performed By: #### B MPX, CDP, MG #### [facility] [address] [facility] [place] [address] Director Of Student Life: Anurag Menjivar DO Eosinophils/100 WBC (Bld) 0 % Normal 0-4 [facility] Comment on above: Performed By: #### B MPX, CDP, MG #### [facility] [place] [address] Director Of Student Life: Anurag Menjivar DO Lymphocytes (Bld) [#/Vol] 2.91 10*3/uL Normal 1.0-4.8 [facility] Comment on above: Performed By: #### B MPX, CDP, MG #### [facility] [place] [address] Director Of Student Life: Anurag Menjivar, DO Lymphocytes/100 WBC (Bld) 26 % Normal 24-44 [facility] Comment on above: Performed By: #### B MPX, CDP, MG #### [facility] [address] [place] [address] Director Of Student Life: Anurag Menjivar DO Monocytes (Bld) [#/Vol] 0.34 10*3/uL Normal 0.1-1.3 [facility] Comment on above: Performed By: #### B MPX, CDP, MG #### [facility] [address] [facility] [place] [address] Director Of Student Life: Anurag Menjivar DO Monocytes/100 WBC (Bld) 3 % Normal 1-7 [facility] Comment on above: Performed By: #### B MPX, CDP, MG #### [facility] [facility] [place] [address] Director Of Student Life: Anurag Menjivar DO Morphology [place] (Bld) [Interp] ANISOCYTOSIS PRESENT Normal [facility] Comment on above: Performed By: #### B MPX, CDP, MG #### [facility] [place] [address] Director Of Student Life: Anurag Menjivar DO Neutrophil (Seg) 70 % High 36-66 [facility] Comment on above: Performed By: #### B MPX, CDP, MG #### [facility] [address] [place] [address] Director Of Student Life: Anurag Menjivar DO Erythrocyte distribution width (RBC) [Ratio] 15.1 % High 11.5-14.9 [facility] Comment on above: Performed By: #### B MPX, CDP, MG #### [facility] [address] [place] [address] Director Of Student Life: Anurag Menjivar DO Hematocrit (Bld) [Volume fraction] 38.2 % Normal 36-46 [facility] Comment on above: Performed By: #### B MPX, CDP, MG #### [facility] [address] [place] [address] Director Of Student Life: Anurag Menjivar DO Hemoglobin (Bld) [Mass/Vol] 12.4 g/dL Normal 12.0-16.0 [facility] Comment on above: Performed By: #### B MPX, CDP, MG #### [facility] [address] [place] [address] Director Of Student Life: Anurag Menjivar DO MCH (RBC) [Entitic mass] 28.5 pg Normal 26-34 [facility] Comment on above: Performed By: #### B MPX, CDP, MG #### [facility] [address] [place] [address] Director Of Student Life: Anurag Menjivar DO MCHC (RBC) [Mass/Vol] 32.3 g/dL Normal 31-37 [facility] Comment on above: Performed By: #### B MPX, CDP, MG #### [facility] [address] [place] [address] Director Of Student Life: Anurag Menjivar DO MCV (RBC) [Entitic vol] 88.3 fL Normal 80-100 [facility] Comment on above: Performed By: #### B MPX, CDP, MG #### [facility] [address] [place] [address] Director Of Student Life: Anurag Menjivar DO Platelet mean volume (Bld) [Entitic vol] 8.8 fL Normal 6.0-12.0 [facility] Comment on above: Performed By: #### B MPX, CDP, MG #### [facility] [address] [place] [address] Director Of Student Life: Anurag Menjivar DO Platelets (Bld) [#/Vol] 183 10*3/uL Normal 150-450 [facility] Comment on above: Performed By: #### B MPX, CDP, MG #### [facility] [address] [facility] [place] [address] Director Of Student Life: Anurag Menjivar DO RBC (Bld) [#/Vol] 4.33 10*6/uL Normal 4.0-5.2 [facility] Comment on above: Performed By: #### B MPX, CDP, MG #### [facility] [address] [place] [address] Director Of Student Life: Anurag Menjivar DO WBC (Bld) [#/Vol] 11.2 10*3/uL High 3.5-11.0 [facility] Comment on above: Performed By: #### B MPX, CDP, MG #### [facility] [address] [place] [address] Director Of Student Life: Anurag Menjivar DO Cult,Bloodon 09-02-2024 Cult,Blood Specimen Description .BLOOD LH Special Requests Culture NO GROWTH 5 DAYS Report Status FINAL 09/02/2024 Normal [facility] Comment on above: Performed By: #### B C #### [facility] [place] [address] Director Of Student Life: Anurag Menjivar DO [address] [phone] Director Of Student Life: Ashish Goetz MD Cult,Blood Specimen Description .BLOOD LAC Special Requests Culture NO GROWTH 5 DAYS Report Status FINAL 09/02/2024 Normal [facility] Comment on above: Performed By: #### B C #### [facility] [address] [place] [address] Director Of Student Life: Anurag Menjivar DO [address] [phone] Director Of Student Life: Ashish Goetz MD Culture, Blood 1on 5 Microorganism identified Cx Nom (Unsp spec) NO GROWTH 5 DAYS [facility] Service comment (Unsp spec) [Interp] [facility] Specimen Description .BLOOD LH [facility] Microorganism identified Cx Nom (Unsp spec) NO GROWTH 5 DAYS [facility] Service comment (Unsp spec) [Interp] [facility] Specimen Description .BLOOD LAC [facility] Glucose,Whole Bloodon 2024 Glucose [Mass/Vol] 159 mg/dL High 65-105 [facility] Glucose [Mass/Vol] 141 mg/dL High 65-105 [facility] Glucose [Mass/Vol] 101 mg/dL Normal 65-105 [facility] Glucose [Mass/Vol] 112 mg/dL High 65-105 [facility] Magnesiumon 09-02-2024 Magnesium [Mass/Vol] 1.8 mg/dL 1.6 - 2 .4 mg/dL [facility] Magnesium [Mass/Vol] 1.8 mg/dL Normal 1.6-2.[address] [facility] Comment on above: Performed By: #### B MPX, CDP, MG #### [facility] [address] [place] [address] Director Of Student Life: Anurag Menjivar DO POC Glucose Fingerstickon Glucose [Mass/Vol] 159 mg/dL High 65 - 105 mg/dL [facility] Interpretation and review of laboratory results Abnormal [facility] Glucose [Mass/Vol] 141 mg/dL High 65 - 105 mg/dL [facility] Interpretation and review of laboratory results Abnormal [facility] Glucose [Mass/Vol] 101 mg/dL 65 - 105 mg/dL [facility] Glucose [Mass/Vol] 112 mg/dL High 65 - 105 mg/dL [facility] Interpretation and review of laboratory results Abnormal [facility] Basic Metab w/rfx MGon 09-01 Anion gap [Moles/Vol] 8 mmol/L Low 9-16 [facility] Comment on above: Performed By: #### B MPX, CDP, MG #### [facility] [address] [facility] [place] [address] Director Of Student Life: Anurag Menjivar DO Calcium [Mass/Vol] 8.2 mg/dL Low 8.6-10.4 [facility] Comment on above: Performed By: #### B MPX, CDP, MG #### [facility] [address] [facility] [place] [address] Director Of Student Life: Anurag Menjivar DO Chloride [Moles/Vol] 106 mmol/L Normal 98-[address] [facility] Comment on above: Performed By: #### B MPX, CDP, MG #### [facility] [place] [address] Director Of Student Life: Anurag Menjivar DO CO2 [Moles/Vol] 29 mmol/L Normal 20-31 [facility] Comment on above: Performed By: #### B MPX, CDP, MG #### [facility] [address] [facility] [place] [address] Director Of Student Life: Anurag Menjivar DO Creatinine [Mass/Vol] 0.5 mg/dL Low 0.7-1.2 [facility] Comment on above: Performed By: #### B MPX, CDP, MG #### [facility] [address] [facility] [place] [address] Director Of Student Life: Anurag Menjivar DO GFR/1.73 sq M.predicted among non-blacks MDRD (S/P/Bld) [Vol rate/Area] mL/min/{1.73_m2} Normal >60 [facility] Comment on above: Result Comment: These results are not intended for use in patients <18 years of age. eGFR results are calculated without a race factor using the 2021 CKD-EPI equation. Careful clinical correlation is recommended, particularly when comparing to results calculated using previous equations. The CKD-EPI equation is less accurate in patients with extremes of muscle mass, extra-renal metabolism of creatine, excessive creatine ingestion, or following therapy that affects renal tubular secretion. Performed By: #### B MPX, CDP, MG #### [facility] [address] [facility] [place] [address] Director Of Student Life: Anurag Menjivar DO Glucose [Mass/Vol] 136 mg/dL High 74-99 [facility] Comment on above: Performed By: #### B MPX, CDP, MG #### [facility] [address] [place] [address] Director Of Student Life: Anurag Menjivar DO Potassium [Moles/Vol] 3.8 mmol/L Normal 3.7-5.3 [facility] Comment on above: Performed By: #### B MPX, CDP, MG #### [facility] [address] [place] [address]. [place] [address] Director Of Student Life: Anurag Menjivar DO Sodium [Moles/Vol] 143 mmol/L Normal 136-145 [facility] Comment on above: Performed By: #### B MPX, CDP, MG #### [facility] [address] [place] [address] Director Of Student Life: Anurag Menjivar DO Urea nitrogen [Mass/Vol] 10 mg/dL Normal 8-23 [facility] Comment on above: Performed By: #### B MPX, CDP, MG #### [facility] [address] [place] [address] Director Of Student Life: Anurag Menjivar DO Basic Metabolic Panel w/ Ref tmoasz to MGon 09-01-2024 Anion gap [Moles/Vol] 8 mmol/L Low 9 - 16 mmol/L [facility] Calcium [Mass/Vol] 8.2 mg/dL Low 8.6 - 10. 4 mg/dL [facility] Chloride [Moles/Vol] 106 mmol/L 98 - 10 7 mmol/L [facility] CO2 [Moles/Vol] 29 mmol/L 20 - 31 mmol/L [facility] Creatinine [Mass/Vol] 0.5 mg/dL Low 0.7 - 1.2 mg/dL [facility] Bahman Guido Rate - PINF [facility] Comment on above: These results are not intended for use in patients <18 years of age. eGFR results are calculated without a race factor using the 2020 CKD-EPI equation. Careful clinical correlation is recommended, particularly when comparing to results calculated using previous equations. The CKD-EPI equation is less accurate in patients with extremes of muscle mass, extra-renal metabolism of creatine, excessive creatine ingestion, or following therapy that affects renal tubular secretion. Glucose [Mass/Vol] 136 mg/dL High 74 - 99 mg/dL [facility] Interpretation and review of laboratory results Abnormal [facility] Potassium [Moles/Vol] 3.8 mmol/L 3.7 - 5.3 mmol/L [facility] Sodium [Moles/Vol] 143 mmol/L 136 - 145 mmol/L [facility] Urea nitrogen [Mass/Vol] 10 mg/dL 8 - 23 mg/dL [facility] CBC with Auto Differentialon 09-01-2024 Absolute Bands 0.12 [facility] Bands 1 % 0 - 10 % [facility] Basophils (Bld) [#/Vol] 0.00 10*3/uL [facility] [facility] Bas[facility]/100 WBC (Bld) 0 % 0 - 2 % [facility] Eosinophils (Bld) [#/Vol] 0.00 10*3/uL [facility] Eosinophils/100 WBC (Bld) 0 % 0 - 4 % [facility] Erythrocyte distribution width (RBC) [Ratio] 15.0 % High 11.5 - 14.9 % [facility] Hematocrit (Bld) [Volume fraction] 33.9 % Low 36 - 46 % [facility] Hemoglobin (Bld) [Mass/Vol] 10.8 g/dL Low 12.0 - 16.0 g/dL [facility] Interpretation and review of laboratory results Abnormal [facility] Lymphocytes/100 WBC (Bld) 13 % Low 24 - 44 % [facility] Lymphocytes/100 WBC (Bld) 1.57 % [facility] MCH (RBC) [Entitic mass] 28.1 pg 26 - 34 pg [facility] MCHC (RBC) [Mass/Vol] 31.7 g/dL 31 - 3 7 g/dL [facility] MCV (RBC) [Entitic vol] 88.8 fL 80 - 100 fL [facility] Monocytes/100 WBC (Bld) 3 % 1 - 7 % [facility] Monocytes/100 WBC (Bld) 0.36 % [facility] Morphology [place] (Bld) [Interp] ANISOCYTOSIS PRESENT [facility] Morphology [place] (Bld) [Interp] HYPOCHROMIA PRESENT [facility] Neutrophils/100 WBC (Bld) 83 % High 36 - 66 % [facility] Platelet mean volume (Bld) [Entitic vol] 8.9 fL 6.0 - 12.0 fL [facility] Platelets (Bld) [#/Vol] 173 10*3/uL [facility] RBC (Bld) [#/Vol] 3.82 10*6/uL Low 4.0 - 5.2 m/uL [facility] Segmented neutrophils/100 WBC (Bld) 10.05 % High [facility] WBC other (Bld) [#/Vol] 12.1 High [facility] CBC with Diffon 09-01-2024 Abs. Bands 0.12 k/uL Normal 0.0-1.0 [facility] Comment on above: Performed By: #### B MPXTOM MG #### [facility] [address] [place] [address] Director Of Student Life: Anurag Menjivar DO Abs. Basophil 0.00 k/uL Normal 0.0-0.2 [facility] Comment on above: Performed By: #### B MPX, CDP, MG #### [facility] [facility] [place] [address] Director Of Student Life: Anurag Menjivar DO Abs.Neutrophil (Seg) 10.05 k/uL High 1.3-9.[address] [facility] Comment on above: Performed By: #### B MPX, CDP, MG #### [facility] [address] [place] [address]. [place] [address] Director Of Student Life: Anurag Menjivar DO Bands 1 % Normal 0-10 [facility] Comment on above: Performed By: #### B MPX, CDP, MG #### [facility] [address] [place] [address]. [place] [address] Director Of Student Life: Anurag Menjivar DO Basophils/100 WBC (Bld) 0 % Normal 0-2 [facility] Comment on above: Performed By: #### B MPX, CDP, MG #### [facility] [address] [place] [address]. [place] [address] Director Of Student Life: Anurag Menjivar DO Eosinophils (Bld) [#/Vol] 0.00 10*3/uL Normal 0.0-0.4 [facility] Comment on above: Performed By: #### B MPX, CDP, MG #### [facility] [address] [place] [address]. [place] [address] Director Of Student Life: Anurag Menjivar DO Eosinophils/100 WBC (Bld) 0 % Normal 0-4 [facility] Comment on above: Performed By: #### B MPX, CDP, MG #### [facility] [address] [place] [address]. [place] [address] Director Of Student Life: Anurag Menjivar DO Lymphocytes (Bld) [#/Vol] 1.57 10*3/uL Normal 1.0-4.8 [facility] Comment on above: Performed By: #### B MPX, CDP, MG #### [facility] [place] [address] Director Of Student Life: Anurag Menjivar DO Lymphocytes/100 WBC (Bld) 13 % Low 24-44 [facility] Comment on above: Performed By: #### B MPX, CDP, MG #### [facility] [place] [address] Director Of Student Life: Anurag Menjivar DO Monocytes (Bld) [#/Vol] 0.36 10*3/uL Normal 0.1-1.3 [facility] Comment on above: Performed By: #### B ZAX, CDP, MG #### [facility] [address] [place] [address] Director Of Student Life: Anurag Menjivar DO Monocytes/100 WBC (Bld) 3 % Normal 1-7 [facility] Comment on above: Performed By: #### B MALLY, TOM, MG #### [facility] [address] [place] [address] Director Of Student Life: Anurag Menjivar DO Morphology [place] (Bld) [Interp] ANISOCYTOSIS PRESENT Normal [facility] Comment on above: Result Comment: HYPO CHROMIA PRESENT Performed By: #### B MALLY, CDP, MG #### [facility] [address] [place] [address] Director Of Student Life: Anurag Menjivar DO Neutrophil (Seg) 83 % High 36-66 [facility] Comment on above: Performed By: #### B MPX, CDP, MG #### [facility] [address] [place] [address] Director Of Student Life: Anurag Menjivar DO Erythrocyte distribution width (RBC) [Ratio] 15.0 % High 11.5-14.9 [facility] Comment on above: Performed By: #### B MPX, CDP, MG #### [facility] [place] [address] Director Of Student Life: Anurag Menjivar DO Hematocrit (Bld) [Volume fraction] 33.9 % Low 36-46 [facility] Comment on above: Performed By: #### B MPX, CDP, MG #### [facility] [address] [place] [address] Director Of Student Life: Anurag Menjivar DO Hemoglobin (Bld) [Mass/Vol] 10.8 g/dL Low 12.0-16.0 [facility] Comment on above: Performed By: #### B MPX, CDP, MG #### [facility] [address] [place] [address] Director Of Student Life: Anurag Menjivar DO MCH (RBC) [Entitic mass] 28.1 pg Normal 26-34 [facility] Comment on above: Performed By: #### B MPX, CDP, MG #### [facility] [address] [place] [address] Director Of Student Life: Anurag Menjivar DO MCHC (RBC) [Mass/Vol] 31.7 g/dL Normal 31-37 [facility] Comment on above: Performed By: #### B MPX, CDP, MG #### [facility] [address] [place] [address] Director Of Student Life: Anurag Menjivar DO MCV (RBC) [Entitic vol] 88.8 fL Normal 80-100 [facility] Comment on above: Performed By: #### B MPX, CDP, MG #### [facility] [address] [place] [address] Director Of Student Life: Anurag Menjivar DO Platelet mean volume (Bld) [Entitic vol] 8.9 fL Normal 6.0-12.0 [facility] Comment on above: Performed By: #### B MPX, CDP, MG #### [facility] [address] [facility] [place] [address] Director Of Student Life: Anurag Menjivar DO Platelets (Bld) [#/Vol] 173 10*3/uL Normal 150-450 [facility] Comment on above: Performed By: #### B MPX, CDP, MG #### [facility] [address] [facility] [place] [address] Director Of Student Life: Anurag Menjivar DO RBC (Bld) [#/Vol] 3.82 10*6/uL Low 4.0-5.2 [facility] Comment on above: Performed By: #### B MPX, CDP, MG #### [facility] [address] [facility] [place] [address] Director Of Student Life: Anurag Menjivar DO WBC (Bld) [#/Vol] 12.1 10*3/uL High 3.5-11.0 [facility] Comment on above: Performed By: #### B MPX, CDP, MG #### [facility] [address] [facility] [place] [address] Director Of Student Life: Anurag Menjivar DO Glucose,Whole Bloodon 2024 Glucose [Mass/Vol] 213 mg/dL High 65-105 [facility] Glucose [Mass/Vol] 175 mg/dL High 65-105 [facility] Glucose [Mass/Vol] 256 mg/dL High 65-105 [facility] POC Glucose Fingerstickon Glucose [Mass/Vol] 213 mg/dL High 65 - 105 mg/dL [facility] Interpretation and review of laboratory results Abnormal [facility] Glucose [Mass/Vol] 175 mg/dL High 65 - 105 mg/dL [facility] Interpretation and review of laboratory results Abnormal [facility] Glucose [Mass/Vol] 256 mg/dL High 65 - 105 mg/dL [facility] Interpretation and review of laboratory results Abnormal [facility] Basic Metab w/rfx MGon 08-31 Anion gap [Moles/Vol] 8 mmol/L Low 9-16 [facility] Comment on above: Performed By: #### B C #### [facility] [address] [place] [address] Director Of Student Life: Anurag Menjivar [address] [address] Director Of Student Life: Ashish Goetz MD Calcium [Mass/Vol] 8.3 mg/dL Low 8.6-10.4 [facility] Comment on above: Performed By: #### B C #### [facility] [address] [place] [address] Director Of Student Life: Anurag Menjivar DO [address] [address] Director Of Student Life: Ashish Goetz MD Chloride [Moles/Vol] 109 mmol/L High 98-[address] [facility] Comment on above: Performed By: #### B C #### [facility] [address] [place] [address] Director Of Student Life: Anurag Menjivar DO [address] [address] Director Of Student Life: Ashish Goetz MD CO2 [Moles/Vol] 26 mmol/L Normal 20-31 [facility] Comment on above: Performed By: #### B C #### [facility] [address] [place] [address] Director Of Student Life: Anurag Menjivar DO [address] [address] Director Of Student Life: Ashish Goetz MD Creatinine [Mass/Vol] 0.6 mg/dL Low 0.7-1.2 [facility] Comment on above: Performed By: #### B C #### [facility] [address] [place] [address] Director Of Student Life: Anurag Menjivar [address] [address] Director Of Student Life: Ashish Goetz MD GFR/1.73 sq M.predicted among non-blacks MDRD (S/P/Bld) [Vol rate/Area] mL/min/{1.73_m2} Normal >60 [facility] Comment on above: Result Comment: These results are not intended for use in patients <18 years of age. eGFR results are calculated without a race factor using the 2020 CKD-EPI equation. Careful clinical correlation is recommended, particularly when comparing to results calculated using previous equations. The CKD-EPI equation is less accurate in patients with extremes of muscle mass, extra-renal metabolism of creatine, excessive creatine ingestion, or following therapy that affects renal tubular secretion. Performed By: #### B C #### [facility] [address] [facility] [place] [address] Director Of Student Life: Anurag Menjivar [address] [address] Director Of Student Life: Ashish Goetz MD Glucose [Mass/Vol] 152 mg/dL High 74-99 [facility] Comment on above: Performed By: #### B C #### [facility] [address] [facility] [place] [address] Director Of Student Life: Anurag Menjivar [address] [address] Director Of Student Life: Ashish Goetz MD Potassium [Moles/Vol] 4.2 mmol/L Normal 3.7-5.3 [facility] Comment on above: Result Comment: Spec imen hemolysis has exceeded the interference as defined by Froilan. Value may be falsely increased. Suggest recollection if clinically indicated. Performed By: #### B C #### [facility] [address] [facility] [place] [address] Director Of Student Life: Anurag Menjivar [address] [address] Director Of Student Life: Ashsih Goetz MD Sodium [Moles/Vol] 143 mmol/L Normal 136-145 [facility] Comment on above: Performed By: #### B C #### [facility] [address] [facility] [place] [address] Director Of Student Life: Anurag Menjivar [address] [address] Director Of Student Life: Ashish Goetz MD Urea nitrogen [Mass/Vol] 8 mg/dL Normal 8-23 [facility] Comment on above: Performed By: #### B C #### [facility] [address] [place] [address] Director Of Student Life: Anurag Menjivar [address] [address] Director Of Student Life: Ashish Goetz MD Basic Metabolic Panel w/ Ref tomasz to MGon 08-31-2024 Anion gap [Moles/Vol] 8 mmol/L Low 9 - 16 mmol/L [facility] Calcium [Mass/Vol] 8.3 mg/dL Low 8.6 - 10. 4 mg/dL [facility] Chloride [Moles/Vol] 109 mmol/L High 98 - 10 7 mmol/L [facility] CO2 [Moles/Vol] 26 mmol/L 20 - 31 mmol/L [facility] Creatinine [Mass/Vol] 0.6 mg/dL Low 0.7 - 1.2 mg/dL [facility] Est, Glom Filt Rate - PINF [facility] Comment on above: These results are not intended for use in patients <18 years of age. eGFR results are calculated without a race factor using the 2020 CKD-EPI equation. Careful clinical correlation is recommended, particularly when comparing to results calculated using previous equations. The CKD-EPI equation is less accurate in patients with extremes of muscle mass, extra-renal metabolism of creatine, excessive creatine ingestion, or following therapy that affects renal tubular secretion. Glucose [Mass/Vol] 152 mg/dL High 74 - 99 mg/dL [facility] Interpretation and review of laboratory results Abnormal [facility] Potassium [Moles/Vol] 4.2 mmol/L 3.7 - 5.3 mmol/L [facility] Comment on above: Specimen hemolysis h as exceeded the interference as defined by Froilan. Value may be falsely increased. Suggest recollection if clinically indicated. Sodium [Moles/Vol] 143 mmol/L 136 - 145 mmol/L [facility] Urea nitrogen [Mass/Vol] 8 mg/dL 8 - 23 mg/dL [facility] Brain Natri. Peptideon 08-31 Natriuretic peptide B (Bld) [Mass/Vol] 1456 pg/mL High 0-300 [facility] Comment on above: Result Comment: An a ge-independent cutoff point of 300 pg/ml has a 98% negative predictive value excluding acute heart failure. Performed By: #### B C #### [facility] [address] [place] [address] Director Of Student Life: [place] [address] Director Of Student Life: Ashish Goetz MD Brain Natriuretic Peptideon 08-31-2024 Interpretation and review of laboratory results Abnormal [facility] Natriuretic peptide B (Bld) [Mass/Vol] 1456 pg/mL High 0 - 300 pg/mL [facility] Comment on above: An age-independent c utoff point of 300 pg/ml has a 98% negative predictive value excluding acute heart failure. [facility] CBC with Auto Differentialon 08-31-2024 Basophils (Bld) [#/Vol] 0.00 10*3/uL [facility] Basophils/100 WBC (Bld) 0 % 0 - 2 % [facility] Eosinophils (Bld) [#/Vol] 0.00 10*3/uL [facility] Eosinophils/100 WBC (Bld) 0 % 0 - 4 % [facility] Erythrocyte distribution width (RBC) [Ratio] 14.8 % 11.5 - 14.9 % [facility] Hematocrit (Bld) [Volume fraction] 35.0 % Low 36 - 46 % [facility] Hemoglobin (Bld) [Mass/Vol] 11.3 g/dL Low 12.0 - 16.0 g/dL [facility] Interpretation and review of laboratory results Abnormal [facility] Lymphocytes/100 WBC (Bld) 6 % Low 24 - 44 % [facility] Lymphocytes/100 WBC (Bld) 0.84 % Low [facility] MCH (RBC) [Entitic mass] 28.8 pg 26 - 34 pg [facility] MCHC (RBC) [Mass/Vol] 32.3 g/dL 31 - 3 7 g/dL [facility] MCV (RBC) [Entitic vol] 89.2 fL 80 - 100 fL [facility] Monocytes/100 WBC (Bld) 3 % 1 - 7 % [facility] Monocytes/100 WBC (Bld) 0.42 % [facility] Morphology [place] (Bld) [Interp] ANISOCYTOSIS PRESENT [facility] Neutrophils/100 WBC (Bld) 91 % High 36 - 66 % [facility] Platelet mean volume (Bld) [Entitic vol] 9.3 fL 6.0 - 12.0 fL [facility] Platelets (Bld) [#/Vol] 182 10*3/uL [facility] RBC (Bld) [#/Vol] 3.92 10*6/uL Low 4.0 - 5.2 m/uL [facility] Segmented neutrophils/100 WBC (Bld) 12.74 % High [facility] WBC other (Bld) [#/Vol] 14.0 High [facility] CBC with Diffon 08-31-2024 Abs. Basophil 0.00 k/uL Normal 0.0-0.2 [facility] Comment on above: Performed By: #### B C #### [facility] [address] [place] [address] Director Of Student Life: Anurag Menjivar [address] [address] Director Of Student Life: Ashish Goetz MD Abs.Neutrophil (Seg) 12.74 k/uL High 1.3-9.[address] [facility] Comment on above: Performed By: #### B C #### [facility] [address] [place] [address] Director Of Student Life: Anurag Menjivar [address] [address] Director Of Student Life: Ashish Goetz MD Basophils/100 WBC (Bld) 0 % Normal 0-2 [facility] Comment on above: Performed By: #### B C #### [facility] [place] [address] Director Of Student Life: Anurag Menjivar [address] [address] Director Of Student Life: Ashish Goetz MD Eosinophils (Bld) [#/Vol] 0.00 10*3/uL Normal 0.0-0.4 [facility] Comment on above: Performed By: #### B C #### [facility] [address] [place] [address] Director Of Student Life: Anurag Menjivar [address] [address] Director Of Student Life: Ashish Goetz MD Eosinophils/100 WBC (Bld) 0 % Normal 0-4 [facility] Comment on above: Performed By: #### B C #### [facility] [place] [address] Director Of Student Life: Anurag Menjivar [address] [address] Director Of Student Life: Ashish Goetz MD Lymphocytes (Bld) [#/Vol] 0.84 10*3/uL Low 1.0-4.8 [facility] Comment on above: Performed By: #### B C #### [facility] [address] [place] [address] Director Of Student Life: Anurag Menjivar [address] [address] Director Of Student Life: Ashish Goetz MD Lymphocytes/100 WBC (Bld) 6 % Low 24-44 [facility] Comment on above: Performed By: #### B C #### [facility] [address] [place] [address] Director Of Student Life: Anurag Menjivar [address] [address] Director Of Student Life: Ashish Goetz MD Monocytes (Bld) [#/Vol] 0.42 10*3/uL Normal 0.1-1.3 [facility] Comment on above: Performed By: #### B C #### [facility] [address] [place] [address] Director Of Student Life: Anurag Menjivar [address] [address] Director Of Student Life: Ashish Goetz MD Monocytes/100 WBC (Bld) 3 % Normal 1-7 [facility] Comment on above: Performed By: #### B C #### [facility] [address] [place] [address] Director Of Student Life: Anurag Menjivar [address] [address] Director Of Student Life: Ashish Goetz MD Morphology [place] (Bld) [Interp] ANISOCYTOSIS PRESENT Normal [facility] Comment on above: Performed By: #### B C #### [facility] [address] [place] [address] Director Of Student Life: Anurag Menjivar [address] [address] Director Of Student Life: Ashish Goetz MD Neutrophil (Seg) 91 % High 36-66 [facility] Comment on above: Performed By: #### B C #### [facility] [address] [place] [address] Director Of Student Life: Anurag Menjivar [address] [address] Director Of Student Life: Ashish Goetz MD Erythrocyte distribution width (RBC) [Ratio] 14.8 % Normal 11.5-14.9 [facility] Comment on above: Performed By: #### B C #### [facility] [address] [place] [address] Director Of Student Life: Anurag Menjivar [address] [address] Director Of Student Life: Ashish Goetz MD Hematocrit (Bld) [Volume fraction] 35.0 % Low 36-46 [facility] Comment on above: Performed By: #### B C #### [facility] [address] [place] [address] Director Of Student Life: Anurag Menjivar [address] [address] Director Of Student Life: Ashish Goetz MD Hemoglobin (Bld) [Mass/Vol] 11.3 g/dL Low 12.0-16.0 [facility] Comment on above: Performed By: #### B C #### [facility] [address] [place] [address] Director Of Student Life: Anurag Menjivar [address] [address] Director Of Student Life: Ashish Goetz MD MCH (RBC) [Entitic mass] 28.8 pg Normal 26-34 [facility] Comment on above: Performed By: #### B C #### [facility] [address] [place] [address] Director Of Student Life: Anurag Menjivar [address] [address] Director Of Student Life: Ashish Goetz MD MCHC (RBC) [Mass/Vol] 32.3 g/dL Normal 31-37 [facility] Comment on above: Performed By: #### B C #### [facility] [address] [place] [address] Director Of Student Life: Anurag Menjivar [address] [address] Director Of Student Life: Ashish Goetz MD MCV (RBC) [Entitic vol] 89.2 fL Normal 80-100 [facility] Comment on above: Performed By: #### B C #### [facility] [address] [place] [address] Director Of Student Life: Anurag Menjivar [address] [address] Director Of Student Life: Ashish Goetz MD Platelet mean volume (Bld) [Entitic vol] 9.3 fL Normal 6.0-12.0 [facility] Comment on above: Performed By: #### B C #### [facility] [address] [place] [address] Director Of Student Life: Anurag Menjivar [address] [address] Director Of Student Life: Ashish Goetz MD Platelets (Bld) [#/Vol] 182 10*3/uL Normal 150-450 [facility] Comment on above: Performed By: #### B C #### [facility] [address] [place] [address] Director Of Student Life: Anurag Menjivar DO [address] [address] Director Of Student Life: Ashish Goetz MD RBC (Bld) [#/Vol] 3.92 10*6/uL Low 4.0-5.2 [facility] Comment on above: Performed By: #### B C #### [facility] [address] [place] [address] Director Of Student Life: Anurag Menjivar DO [address] [address] Director Of Student Life: Ashish Goetz MD WBC (Bld) [#/Vol] 14.0 10*3/uL High 3.5-11.0 [facility] Comment on above: Performed By: #### B C #### [facility] [address] [place] [address] Director Of Student Life: Anurag Menjivar DO [address] [address] Director Of Student Life: Ashish Goetz MD Cult,Respiratoryon 5 Cult,Respiratory Specimen Description .EXPECTORATED SPUTUM Special Requests Site: Sputum Direct Exam < 10 EPITHELIAL CELLS/LPF <10 NEUTROPHILS/LPF NO SIGNIFICANT PATHOGENS SEEN Culture NORMAL RESPIRATORY DARA LIGHT GROWTH Report Status FINAL 08/31/2024 Normal [facility] Comment on above: Performed By: #### B MPX, CDP, MG #### [facility] [address] [place] [address] Director Of Student Life: Anurag Menjivar DO Glucose,Whole Bloodon 2024 Glucose [Mass/Vol] 167 mg/dL High 65-105 [facility] Glucose [Mass/Vol] 196 mg/dL High 65-105 [facility] POC Glucose Fingerstickon Glucose [Mass/Vol] 167 mg/dL High 65 - 105 mg/dL [facility] Interpretation and review of laboratory results Abnormal [facility] Glucose [Mass/Vol] 196 mg/dL High 65 - 105 mg/dL [facility] Interpretation and review of laboratory results Abnormal [facility] XR CHEST (SINGLE VIEW FRONTA L)on 08-31-2024 XR CHEST (SINGLE VIEW FRONTAL) EXAMINATION: ONE XRAY VIEW OF THE CHEST 08/31/2024 6:54 am COMPARISON: None. HISTORY: ORDERING SYSTEM PROVIDED HISTORY: Hypoxia TECHNOLOGIST PROVIDED HISTORY: Hypoxia Reason for Exam: Hypoxia FINDINGS: Mild bibasilar infiltrates. No pneumothorax or pleural effusion. Normal cardiomediastinal silhouette IMPRESSION: Mild bibasilar infiltrates which could represent atelectasis or pneumonia Interpreted by: Robert Cazares MD Signed by: Robert Cazares MD 08/31/24 Final result Normal [facility] Mild bibasilar infiltrates which could represent atelectasis or pneumonia [facility] RIS CONSOLIDATED EXAMINATION: ONE XRAY VIEW OF THE CHEST 08/31/2024 6:54 am COMPARISON: None. HISTORY: ORDERING SYSTEM PROVIDED HISTORY: Hypoxia TECHNOLOGIST PROVIDED HISTORY: Hypoxia Reason for Exam: Hypoxia FINDINGS: Mild bibasilar infiltrates. No pneumothorax or pleural effusion. Normal cardiomediastinal silhouette [facility] RIS CONSOLIDATED Robert Cazares M D - 08/31/2024 EXAMINATION: ONE XRAY VIEW OF THE CHEST 08/31/2024 6:54 am COMPARISON: None. HISTORY: ORDERING SYSTEM PROVIDED HISTORY: Hypoxia TECHNOLOGIST PROVIDED HISTORY: Hypoxia Reason for Exam: Hypoxia FINDINGS: Mild bibasilar infiltrates. No pneumothorax or pleural effusion. Normal cardiomediastinal silhouette IMPRESSION: Mild bibasilar infiltrates which could represent atelectasis or pneumonia [facility] Radiology Study observation (narrative) [facility] XR CHEST (SINGLE VIEW FRONTA L)Ordered By: Robert Cazares on 08-31-2024 [facility] Work Phone: Basic Metab w/rfx MGon 08-30 Anion gap [Moles/Vol] 7 mmol/L Low 9-16 [facility] Comment on above: Performed By: #### B MPX, CDP, MG #### [facility] [address] [facility] [place] [address] Director Of Student Life: Anurag Menjivar DO Calcium [Mass/Vol] 8.2 mg/dL Low 8.6-10.4 [facility] Comment on above: Performed By: #### B MPX, CDP, MG #### [facility] [address] [place] [address] Director Of Student Life: Anurag Menjivar DO Chloride [Moles/Vol] 111 mmol/L High 98-[address] [facility] Comment on above: Performed By: #### B MPX, CDP, MG #### [facility] [address] [place] [address] Director Of Student Life: Anurag Menjivar DO CO2 [Moles/Vol] 28 mmol/L Normal 20-31 [facility] Comment on above: Performed By: #### B MPX, CDP, MG #### [facility] [address] [place] [address] Director Of Student Life: Anurag Menjivar DO Creatinine [Mass/Vol] 0.6 mg/dL Low 0.7-1.2 [facility] Comment on above: Performed By: #### B MPX, CDP, MG #### [facility] [address] [place] [address] Director Of Student Life: Anurag Menjivar DO GFR/1.73 sq M.predicted among non-blacks MDRD (S/P/Bld) [Vol rate/Area] mL/min/{1.73_m2} Normal >60 [facility] Comment on above: Result Comment: These results are not intended for use in patients <18 years of age. eGFR results are calculated without a race factor using the 2020 CKD-EPI equation. Careful clinical correlation is recommended, particularly when comparing to results calculated using previous equations. The CKD-EPI equation is less accurate in patients with extremes of muscle mass, extra-renal metabolism of creatine, excessive creatine ingestion, or following therapy that affects renal tubular secretion. Performed By: #### B MPX CDP, MG #### [facility] [address] [place] [address]. [place] [address] Director Of Student Life: Anurag Menjivar DO Glucose [Mass/Vol] 162 mg/dL High 74-99 [facility] Comment on above: Performed By: #### B MPX CDP, MG #### [facility] [address] [place] [address] Director Of Student Life: Anurag Menjivar DO Potassium [Moles/Vol] 4.5 mmol/L Normal 3.7-5.3 [facility] Comment on above: Performed By: #### B MPX CDP, MG #### [facility] [address] [place] [address]. [place] [address] Director Of Student Life: Anurag Menjivar DO Sodium [Moles/Vol] 146 mmol/L High 136-145 [facility] Comment on above: Performed By: #### B MALLY CDP, MG #### [facility] [address] [place] [address]. [place] [address] Director Of Student Life: Anurag Menjivar DO Urea nitrogen [Mass/Vol] 8 mg/dL Normal 8-23 [facility] Comment on above: Performed By: #### B MPX CDP, MG #### [facility] [address] [place] [address] Director Of Student Life: Anurag Menjivar DO Basic Metabolic Panel w/ Ref tomasz to MGon 08-30-2024 Anion gap [Moles/Vol] 7 mmol/L Low 9 - 16 mmol/L [facility] Calcium [Mass/Vol] 8.2 mg/dL Low 8.6 - 10. 4 mg/dL [facility] Chloride [Moles/Vol] 111 mmol/L High 98 - 10 7 mmol/L [facility] CO2 [Moles/Vol] 28 mmol/L 20 - 31 mmol/L [facility] Creatinine [Mass/Vol] 0.6 mg/dL Low 0.7 - 1.2 mg/dL [facility] Est, Glom Filt Rate - PINF [facility] Comment on above: These results are not intended for use in patients <18 years of age. eGFR results are calculated without a race factor using the 2020 CKD-EPI equation. Careful clinical correlation is recommended, particularly when comparing to results calculated using previous equations. The CKD-EPI equation is less accurate in patients with extremes of muscle mass, extra-renal metabolism of creatine, excessive creatine ingestion, or following therapy that affects renal tubular secretion. Glucose [Mass/Vol] 162 mg/dL High 74 - 99 mg/dL [facility] Potassium [Moles/Vol] 4.5 mmol/L 3.7 - 5.3 mmol/L [facility] Sodium [Moles/Vol] 146 mmol/L High 136 - 145 mmol/L [facility] Urea nitrogen [Mass/Vol] 8 mg/dL 8 - 23 mg/dL [facility] CBC with Auto Differentialon 08-30-2024 Absolute Bands 0.18 [facility] Bands 1 % 0 - 10 % [facility] Basophils (Bld) [#/Vol] 0.00 10*3/uL [facility] Basophils/100 WBC (Bld) 0 % 0 - 2 % [facility] Eosinophils (Bld) [#/Vol] 0.00 10*3/uL [facility] Eosinophils/100 WBC (Bld) 0 % 0 - 4 % [facility] Erythrocyte distribution width (RBC) [Ratio] 15.1 % High 11.5 - 14.9 % [facility] Hematocrit (Bld) [Volume fraction] 35.2 % Low 36 - 46 % [facility] Hemoglobin (Bld) [Mass/Vol] 11.2 g/dL Low 12.0 - 16.0 g/dL [facility] Interpretation and review of laboratory results Abnormal [facility] Lymphocytes/100 WBC (Bld) 4 % Low 24 - 44 % [facility] Lymphocytes/100 WBC (Bld) 0.71 % Low [facility] MCH (RBC) [Entitic mass] 28.4 pg 26 - 34 pg [facility] MCHC (RBC) [Mass/Vol] 31.8 g/dL 31 - 3 7 g/dL [facility] MCV (RBC) [Entitic vol] 89.4 fL 80 - 100 fL [facility] Monocytes/100 WBC (Bld) 2 % 1 - 7 % [facility] Monocytes/100 WBC (Bld) 0.35 % [facility] Morphology [place] (Bld) [Interp] ANISOCYTOSIS PRESENT [facility] Morphology [place] (Bld) [Interp] HYPOCHROMIA PRESENT [facility] Neutrophils/100 WBC (Bld) 93 % High 36 - 66 % [facility] Platelet mean volume (Bld) [Entitic vol] 9.2 fL 6.0 - 12.0 fL [facility] Platelets (Bld) [#/Vol] 177 10*3/uL [facility] RBC (Bld) [#/Vol] 3.94 10*6/uL Low 4.0 - 5.2 m/uL [facility] Segmented neutrophils/100 WBC (Bld) 16.46 % High [facility] WBC other (Bld) [#/Vol] 17.7 High [facility] CBC with Diffon 08-30-2024 Abs. Bands 0.18 k/uL Normal 0.0-1.0 [facility] Comment on above: Performed By: #### U #### [facility] [address] [place] [address] Director Of Student Life: Anurag Menjivar DO [facility] [place], [place] [id number] Director Of Student Life: Ashish Goetz MD Abs. Basophil 0.00 k/uL Normal 0.0-0.2 [facility] Comment on above: Performed By: #### U RC #### [facility] [address] [place] [address] Director Of Student Life: Anurag Menjivar [address] [address] Director Of Student Life: Ashish Goetz MD Abs.Neutrophil (Seg) 16.46 k/uL High 1.3-9.[address] [facility] Comment on above: Performed By: #### U RC #### [facility] [address] [place] [address] Director Of Student Life: Anurag Menjivar [address] [address] Director Of Student Life: Ashish Goetz MD Bands 1 % Normal 0-10 [facility] Comment on above: Performed By: #### U RC #### [facility] [address] [place] [address] Director Of Student Life: Anurag Menjivar [address] [address] Director Of Student Life: Ashish Goetz MD Basophils/100 WBC (Bld) 0 % Normal 0-2 [facility] Comment on above: Performed By: #### U RC #### [facility] [address] [place] [address] Director Of Student Life: Anurag Menjivar [address] [address] Director Of Student Life: Ashish Goetz MD Eosinophils (Bld) [#/Vol] 0.00 10*3/uL Normal 0.0-0.4 [facility] Comment on above: Performed By: #### U RC #### [facility] [address] [place] [address], [place] [address] Director Of Student Life: Anurag Menjivar [address] [address] Director Of Student Life: Ashish Goetz MD Eosinophils/100 WBC (Bld) 0 % Normal 0-4 [facility] Comment on above: Performed By: #### U RC #### [facility] [address] [place] [address] Director Of Student Life: Anurag Menjivar [address] [address] Director Of Student Life: Ashish Goetz MD Lymphocytes (Bld) [#/Vol] 0.71 10*3/uL Low 1.0-4.8 [facility] Comment on above: Performed By: #### U RC #### [facility] [address] [place] [address] Director Of Student Life: Anurag Menjivar [address] [address] Director Of Student Life: Ashish Goetz MD Lymphocytes/100 WBC (Bld) 4 % Low 24-44 [facility] Comment on above: Performed By: #### U RC #### [facility] [address] [place] [address] Director Of Student Life: Anurag Menjivar [address] [address] Director Of Student Life: Ashish Goetz MD Monocytes (Bld) [#/Vol] 0.35 10*3/uL Normal 0.1-1.3 [facility] Comment on above: Performed By: #### U RC #### [facility] [address] [place] [address] Director Of Student Life: Anurag Menjivar [address] [address] Director Of Student Life: Ashish Goetz MD Monocytes/100 WBC (Bld) 2 % Normal 1-7 [facility] Comment on above: Performed By: #### U RC #### [facility] [address] [place] [address] Director Of Student Life: Anurag Menjivar [address] [address] Director Of Student Life: Ashish Goetz MD Morphology [place] (Bld) [Interp] ANISOCYTOSIS PRESENT Normal [facility] Comment on above: Result Comment: HYPO CHROMIA PRESENT Performed By: #### U RC #### [facility] [address] [place] [address] Director Of Student Life: Anurag Menjivar [address] [address] Director Of Student Life: Ashish Goetz MD Neutrophil (Seg) 93 % High 36-66 [facility] Comment on above: Performed By: #### U RC #### [facility] [address] [place] [address] Director Of Student Life: Anurag Menjivar [address] [address] Director Of Student Life: Ashish Goetz MD Erythrocyte distribution width (RBC) [Ratio] 15.1 % High 11.5-14.9 [facility] Comment on above: Performed By: #### U RC #### [facility] [address] [place] [address] Director Of Student Life: Anurag Menjivar [address] [address] Director Of Student Life: Ashish Goetz MD Hematocrit (Bld) [Volume fraction] 35.2 % Low 36-46 [facility] Comment on above: Performed By: #### U RC #### [facility] [address] [place] [address], [place] [address] Director Of Student Life: Anurag Menjivar [address] [address] Director Of Student Life: Ashish Goetz MD Hemoglobin (Bld) [Mass/Vol] 11.2 g/dL Low 12.0-16.0 [facility] Comment on above: Performed By: #### U RC #### [facility] [place] [address] Director Of Student Life: Anurag Menjivar [address] [address] Director Of Student Life: Ashish Goetz MD MCH (RBC) [Entitic mass] 28.4 pg Normal 26-34 [facility] Comment on above: Performed By: #### U RC #### [facility] [address] [place] [address] Director Of Student Life: Anurag Menjivar [address] [address] Director Of Student Life: Ashish Goetz MD MCHC (RBC) [Mass/Vol] 31.8 g/dL Normal 31-37 [facility] Comment on above: Performed By: #### U RC #### [facility] [address] [place] [address] Director Of Student Life: Anurag Menjivar [address] [address] Director Of Student Life: Ashish Goetz MD MCV (RBC) [Entitic vol] 89.4 fL Normal 80-100 [facility] Comment on above: Performed By: #### U RC #### [facility] [address] [place] [address] Director Of Student Life: Anurag Menjivar [address] [address] Director Of Student Life: Ashish Goetz MD Platelet mean volume (Bld) [Entitic vol] 9.2 fL Normal 6.0-12.0 [facility] Comment on above: Performed By: #### U RC #### [facility] [address] [place] [address] Director Of Student Life: Anurag Menjivar [address] [address] Director Of Student Life: Ashish Goetz MD Platelets (Bld) [#/Vol] 177 10*3/uL Normal 150-450 [facility] Comment on above: Performed By: #### U RC #### [facility] [address] [place] [address] Director Of Student Life: Anurag Menjivar [address] [address] Director Of Student Life: Ashish Goetz MD RBC (Bld) [#/Vol] 3.94 10*6/uL Low 4.0-5.2 [facility] Comment on above: Performed By: #### U RC #### [facility] [address] [place] [address] Director Of Student Life: Anurag Menjivar [address] [address] Director Of Student Life: Ashish Goetz MD WBC (Bld) [#/Vol] 17.7 10*3/uL High 3.5-11.0 [facility] Comment on above: Performed By: #### U RC #### [facility] [address] [place] [address] Director Of Student Life: Anurag Menjivar [address] [address] Director Of Student Life: Ashish Goetz MD Cardiac echo study Procedure on 08-30-2024 Ao Root Index 2.05 cm/m2 [facility] Aortic Root 3.0 cm [facility] AV Area by Peak Velocity 2.0 cm2 [facility] AV Area by VTI 1.8 cm2 [place] [facility] AV Mean Gradient 8 mmHg [facility] AV Mean Velocity 1.4 m/s [facility] AV Peak Gradient 16 mmHg [facility] AV Peak Velocity 2.0 m/s [facility] AV Velocity Ratio 0.70 [facility] AV VTI 40.3 cm [facility] LIBAN/BSA Peak Velocity 1.4 cm2/m2 [facility] LIBAN/BSA VTI 1.2 cm2/m2 [facility] Body surface area Derived from formula 1.47 m2 [facility] E/E' Lateral 17.06 [facility] E/E' Ratio (Averaged) 16.08 [facility] E/E' Septal 15.09 [facility] EF Physician 50 % [facility] Est. RA Pressure 8 mmHg [facility] [employer] [facility] Fractional Shortening 2D 26 % 28 - 44 % [facility] Interpretation and review of laboratory results Abnormal [facility] IVSd 0.5 cm Abnormal 0.6 - 0.9 cm [facility] LA Area 2C 17.5 cm2 [facility] LA Area 4C 14.4 cm2 [facility] LA Diameter 3.1 cm [facility] LA Major [place] 5.4 cm [facility] LA Minor [place] 5.9 cm [facility] LA Size Index 2.12 cm/m2 [facility] LA Volume BP 38 mL 22 - 52 mL [facility] LA Volume Index BP 26 ml/m2 16 - 34 ml/m2 [facility] LA Volume Index MOD A2C 29 ml/m2 16 - 34 ml/m2 [facility] LA Volume Index MOD A4C 21 ml/m2 16 - 34 ml/m2 [facility] LA Volume MOD A2C 43 mL 22 - 52 mL [facility] [employer] LA Volume MOD A4C 31 mL 22 - 52 mL [facility] LA/AO Root Ratio 1.03 [facility] [email or web address] LV E' Lateral Velocity 6.74 cm/s [place] [facility] LV E' Septal Velocity 7.62 cm/s Bon [facility] LV Mass 2D 98.1 g 67 - 162 g [facility] Mass 2D Index 67.2 g/m2 43 - 95 g/m2 Bon [facility] LV RWT Ratio 0.22 Bon [facility] LVIDd 5.4 cm Abnormal 3.9 - 5.3 cm Bon [facility] LVIDd Index 3.70 cm/m2 Bon [facility] LVIDs 4.0 cm Bon [facility] LVIDs Index 2.74 cm/m2 Bon [facility] LVOT Area 2.8 cm2 Bon [facility] LVOT Diameter 1.9 cm Bon [facility] LVOT Mean Gradient 4 mmHg Bon [facility] LVOT Peak Gradient 8 mmHg [facility] LVOT Peak Velocity 1.4 m/s [facility] LVOT Stroke Volume Index 50.7 mL/m2 Bon [facility] LVOT SV 74.0 ml Bon [facility] LVOT VTI 26.1 cm Bon [facility] LVOT:AV VTI Index 0.65 Bon [facility] [employer] LVPWd 0.6 cm 0.6 - 0.9 cm Bon [facility] MV A Velocity 0.94 m/s Bon [facility] MV E Velocity 1.15 m/s Bon [facility] [employer] MV E Wave Deceleration Time 165.0 ms Bon [facility] MV E/A 1.22 Bon [facility] PASP 54 mmHg Bon [facility] PV Max Velocity 1.5 m/s [facility] PV Peak Gradient 8 mmHg [facility] RA Area 4C 11.6 cm2 Bon [facility] RA Volume 23 ml Bon [facility] RA Volume Index A4C 16 mL/m2 [facility] RV Free Wall Peak S' 13.4 cm/s Bon [facility] RVSP 54 mmHg Bon [facility] [employer] TAPSE 2.2 cm 1.7 cm Bon [facility] TR Max Velocity 3.38 m/s [facility] TR Peak Gradient 46 mmHg [facility] Left Ventricle: Low normal left ventricular systolic function with a visually estimated EF of 50 - 55%. Left ventricle is mildly dilated. Normal wall thickness. Normal wall motion. Abnormal diastolic function. Aortic Valve: Trileaflet valve. Mildly thickened cusps. Mitral Valve: Mildly thickened leaflets. Trace regurgitation. Tricuspid Valve: Mild regurgitation. Moderately elevated RVSP, consistent with moderate pulmonary hypertension. Est RA pressure is 8 mmHg. The estimated RVSP is 54 mmHg. Left Atrium: Left atrium is mildly dilated. IVC/SVC: IVC diameter is greater than 21 mm and decreases greater than 50% during inspiration; therefore the estimated right atrial pressure is intermediate (~8 mmHg). Image quality is good. Left Ventricle Low normal left ventricular systolic function with a visually estimated EF of 50 - 55%. Left ventricle is mildly dilated. Normal wall thickness. Normal wall motion. Abnormal diastolic function. Right Ventricle Right ventricle size is normal. Normal systolic function. Left Atrium Left atrium is mildly dilated. Right Atrium Right atrium size is normal. IVC/SVC IVC diameter is greater than 21 mm and decreases greater than 50% during inspiration; therefore the estimated right atrial pressure is intermediate (~8 mmHg). Mitral Valve Mildly thickened leaflets. Trace regurgitation. No stenosis noted. Tricuspid Valve Valve structure is normal. Mild regurgitation. No stenosis noted. Moderately elevated RVSP, consistent with moderate pulmonary hypertension. Est RA pressure is 8 mmHg. The estimated RVSP is 54 mmHg. Aortic Valve Trileaflet valve. Mildly thickened cusps. No regurgitation. No stenosis. Pulmonic Valve Valve structure is normal. Trace regurgitation. No stenosis noted. Ascending Aorta Normal sized aorta. Pericardium No pericardial effusion. Septum No interatrial shunt visualized with color Doppler. Pulmonary Artery Main pulmonary artery is normal in size. Extracardiac No pleural effusion present. Study Details Image quality: good. The view(s) performed were parasternal, apical, subcostal and suprasternal. Heart rate was 92 bpm. Color flow Doppler was performed and pulse wave and/or continuous wave Doppler was performed. No contrast was given. [facility] CV CPACS [facility] Radiology Study observation (narrative) [facility] Culture, Respiratoryon 08-30 Microorganism identified Cx Nom (Unsp spec) NORMAL RESPIRATORY DARA LIGHT GROWTH [facility] Microorganism or agent identified Nom (Unsp spec) < 10 EPITHELIAL CELLS/LPF [facility] Microorganism or agent identified Nom (Unsp spec) <10 NEUTROPHILS/LPF [facility] Microorganism or agent identified Nom (Unsp spec) NO SIGNIFICANT PATHOGENS SEEN [facility] Service comment (Unsp spec) [Interp] Site: Sputum [facility] Specimen Description .EXPECTORATED SPUTUM [facility] EKG 12 Leadon 08-30-2024 Atrial Rate 54 BPM [facility] P [place] 64 degrees [facility] P-R Interval 114 ms [facility] Q-T Interval 392 ms [facility] QRS Duration 82 ms [facility] QTc Calculation (Bazett) 371 ms [facility] R [place] 44 degrees [facility] T [place] -91 degrees [facility] Ventricular Rate 54 BPM [facility] Sinus bradycardia wi th Premature atrial complexes Marked ST abnormality, possible inferior subendocardial injury Abnormal ECG When compared with ECG of 28-AUG-2024 14:15, Premature atrial complexes are now Present Vent. rate has decreased BY [address] no longer depressed in Lateral leads T wave inversion less evident in Lateral leads [facility] MUSE Cristian Hallman, DO - 08/30/2024 Sinus bradycardia with Premature atrial complexes Marked ST abnormality, possible inferior subendocardial injury Abnormal ECG When compared with ECG of 28-AUG-2024 14:15, Premature atrial complexes are now Present Vent. rate has decreased BY [address] no longer depressed in Lateral leads T wave inversion less evident in Lateral leads [facility] Glucose,Whole Bloodon 2024 Glucose [Mass/Vol] 188 mg/dL High 65-105 [facility] Glucose [Mass/Vol] 191 mg/dL High 65-105 [facility] Glucose [Mass/Vol] 239 mg/dL High 65-105 [facility] Glucose [Mass/Vol] 144 mg/dL High 65-105 [facility] MRSA DNA Probe, Nasalon 08-18 MRSA, DNA, Nasal Negative NEGATIVE [facility] Comment on above: NEGATIVE: MRSA DNA n ot detected by nucleic acid amplification. Results should be used as an adjunct to nosocomial control efforts to identify patients needing enhanced precautions. The test is not intended to identify patients with staphylococcal infections. Results should not be used to guide or monitor treatment for MRSA infections. Specimen Description .NASAL SWAB [facility] MRSA, DNA, Nasalon MRSA, DNA, Nasal Negative Normal NEG [facility] Comment on above: Result Comment: NEGA TIVE: MRSA DNA not detected by nucleic acid amplification. Results should be used as an adjunct to nosocomial control efforts to identify patients needing enhanced precautions. The test is not intended to identify patients with staphylococcal infections. Results should not be used to guide or monitor treatment for MRSA infections. Performed By: #### B MPX, CDP, MG #### [facility] [address] [place] [address] Director Of Student Life: Anurag Menjivar DO No Panel Informationon 08-30 Interpretation and review of laboratory results Abnormal [facility] POC Glucose Fingerstickon Glucose [Mass/Vol] 188 mg/dL High 65 - 105 mg/dL [facility] Interpretation and review of laboratory results Abnormal [facility] Glucose [Mass/Vol] 191 mg/dL High 65 - 105 mg/dL [facility] Interpretation and review of laboratory results Abnormal [facility] Glucose [Mass/Vol] 239 mg/dL High 65 - 105 mg/dL [facility] Interpretation and review of laboratory results Abnormal [facility] Glucose [Mass/Vol] 144 mg/dL High 65 - 105 mg/dL [facility] Interpretation and review of laboratory results Abnormal [facility] Procalcitoninon 08-30-2024 Interpretation and review of laboratory results Abnormal [facility] Procalcitonin [Mass/Vol] 0.92 ng/mL High 0.00 - 0.09 ng/mL [facility] Comment on above: Suspected Sepsis: <0.50 ng/mL Low likelihood of sepsis. 0.50-2.00 ng/mL Increased likelihood of sepsis. Antibiotics encouraged. >2.00 ng/mL High risk of sepsis/shock. Antibiotics strongly encouraged. Suspected Lower Resp Tract Infections: <0.24 ng/mL Low likelihood of bacterial infection. >0.24 ng/mL Increased likelihood of bacterial infection. Antibiotics encouraged. With successful antibiotic therapy, PCT levels should decrease rapidly. (Half-life of 24 to 36 hours.) Procalcitonin values from samples collected within the first 6 hours of systemic infection may still be low. Retesting may be indicated. Values from day 1 and day 4 can be entered into the Change in Procalcitonin Calculator (www.zwjkjt-sos-qwhfmdexjp.Livefyre) to determine the patient's Mortality Risk Prognosis In healthy neonates, plasma Procalcitonin (PCT) concentrations increase gradually after , reaching peak values at about 24 hours of age then decrease to normal values below 0.5 ng/mL by 48-72 hours of age. [facility] Procalcitonin 0.92 ng/mL High 0.00-0.09 [facility] Comment on above: Result Comment: Suspected Sepsis: <0.50 ng/mL Low likelihood of sepsis. 0.50-2.00 ng/mL Increased likelihood of sepsis. Antibiotics encouraged. >2.00 ng/mL High risk of sepsis/shock. Antibiotics strongly encouraged. Suspected Lower Resp Tract Infections: <0.24 ng/mL Low likelihood of bacterial infection. >0.24 ng/mL Increased likelihood of bacterial infection. Antibiotics encouraged. With successful antibiotic therapy, PCT levels should decrease rapidly. (Half-life of 24 to 36 hours.) Procalcitonin values from samples collected within the first 6 hours of systemic infection may still be low. Retesting may be indicated. Values from day 1 and day 4 can be entered into the Change in Procalcitonin Calculator (www.uuodpa-hor-dtnptcmtij.Livefyre) to determine the patient's Mortality Risk Prognosis In healthy neonates, plasma Procalcitonin (PCT) concentrations increase gradually after , reaching peak values at about 24 hours of age then decrease to normal values below 0.5 ng/mL by 48-72 hours of age. Performed By: #### B MPLuis Fernando, TOM, MG #### [facility] [address] [facility] [place] [address] Director Of Student Life: Anurag Menjivar DO Troponinon 08-30-2024 Troponin I.cardiac High sensitivity method [Mass/Vol] 19 ng/L High 0 - 14 ng/L [facility] Comment on above: High Sensitivity Tro ponin values cannot be compared with other Troponin methodologies. Troponin, High Sens 19 ng/L High 0-14 [facility] Comment on above: Result Comment: High Sensitivity Troponin values cannot be compared with other Troponin methodologies. Performed By: #### B MPX, CDP, MG #### [facility] [address] [facility] [place] [address] Director Of Student Life: Anurag Menjivar DO Basic Metab w/rfx MGon 08-29 Anion gap [Moles/Vol] 11 mmol/L Normal 9-16 [facility] Comment on above: Performed By: #### B MPX, CDP, MG #### [facility] [place] [address] Director Of Student Life: Anurag Menjivar DO Calcium [Mass/Vol] 8.1 mg/dL Low 8.6-10.4 [facility] Comment on above: Performed By: #### B MPX, CDP, MG #### [facility] [place] [address] Director Of Student Life: Anurag Menjivar DO Chloride [Moles/Vol] 103 mmol/L Normal 98-[address] [facility] Comment on above: Performed By: #### B MPX, CDP, MG #### [facility] [place] [address] Director Of Student Life: Anurag Menjivar DO CO2 [Moles/Vol] 22 mmol/L Normal 20-31 [facility] Comment on above: Performed By: #### B MPX, CDP, MG #### [facility] [place] [address] Director Of Student Life: Anurag Menjivar DO Creatinine [Mass/Vol] 0.9 mg/dL Normal 0.7-1.2 [facility] Comment on above: Performed By: #### B MPX CDP, MG #### [facility] [address] [place] [address] Director Of Student Life: Anurag Menjivar DO GFR/1.73 sq M.predicted among non-blacks MDRD (S/P/Bld) [Vol rate/Area] 69 mL/min/{1.73_m2} Normal >60 [facility] Comment on above: Result Comment: These results are not intended for use in patients <18 years of age. eGFR results are calculated without a race factor using the 2020 CKD-EPI equation. Careful clinical correlation is recommended, particularly when comparing to results calculated using previous equations. The CKD-EPI equation is less accurate in patients with extremes of muscle mass, extra-renal metabolism of creatine, excessive creatine ingestion, or following therapy that affects renal tubular secretion. Performed By: #### B MPX, CDP, MG #### [facility] [address] [facility] [place] [address] Director Of Student Life: Anurag Menjivar DO Glucose [Mass/Vol] 225 mg/dL High 74-99 [facility] Comment on above: Performed By: #### B MPX, CDP, MG #### [facility] [place] [address] Director Of Student Life: Anurag Menjivar DO Potassium [Moles/Vol] 3.8 mmol/L Normal 3.7-5.3 [facility] Comment on above: Performed By: #### B MPX, CDP, MG #### [facility] [address] [place] [address] Director Of Student Life: Anurag Menjivar DO Sodium [Moles/Vol] 136 mmol/L Normal 136-145 [facility] Comment on above: Performed By: #### B MPX, CDP, MG #### [facility] [address] [place] [address] Director Of Student Life: Anurag Menjivar DO Urea nitrogen [Mass/Vol] 14 mg/dL Normal 8-23 [facility] Comment on above: Performed By: #### B MPX, CDP, MG #### [facility] [address] [place] [address] Director Of Student Life: Anurag Menjivar DO Basic Metabolic Panel w/ Ref tomasz to on 08-29-2024 Anion gap [Moles/Vol] 11 mmol/L 9 - 16 mmol/L [facility] Calcium [Mass/Vol] 8.1 mg/dL Low 8.6 - 10. 4 mg/dL [facility] Chloride [Moles/Vol] 103 mmol/L 98 - 10 7 mmol/L [facility] CO2 [Moles/Vol] 22 mmol/L 20 - 31 mmol/L [facility] Creatinine [Mass/Vol] 0.9 mg/dL 0.7 - 1.2 mg/dL [facility] Est, Glom Filt Rate 69 - PINF [facility] Comment on above: These results are not intended for use in patients <18 years of age. eGFR results are calculated without a race factor using the 2020 CKD-EPI equation. Careful clinical correlation is recommended, particularly when comparing to results calculated using previous equations. The CKD-EPI equation is less accurate in patients with extremes of muscle mass, extra-renal metabolism of creatine, excessive creatine ingestion, or following therapy that affects renal tubular secretion. Glucose [Mass/Vol] 225 mg/dL High 74 - 99 mg/dL [facility] Interpretation and review of laboratory results Abnormal [facility] Potassium [Moles/Vol] 3.8 mmol/L 3.7 - 5.3 mmol/L [facility] Sodium [Moles/Vol] 136 mmol/L 136 - 145 mmol/L [facility] Urea nitrogen [Mass/Vol] 14 mg/dL 8 - 23 mg/dL [facility] CBC with Auto Differentialon 08-29-2024 Basophils (Bld) [#/Vol] 0.00 10*3/uL [facility] Basophils/100 WBC (Bld) 0 % 0 - 2 % [facility] Eosinophils (Bld) [#/Vol] 0.00 10*3/uL [facility] Eosinophils/100 WBC (Bld) 0 % 0 - 4 % [facility] Erythrocyte distribution width (RBC) [Ratio] 14.8 % 11.5 - 14.9 % [facility] Hematocrit (Bld) [Volume fraction] 37.4 % 36 - 46 % [facility] Hemoglobin (Bld) [Mass/Vol] 12.0 g/dL 12.0 - 16.0 g/dL [facility] Interpretation and review of laboratory results Abnormal [facility] Lymphocytes/100 WBC (Bld) 1 % Low 24 - 44 % [facility] Lymphocytes/100 WBC (Bld) 0.19 % Low [facility] MCH (RBC) [Entitic mass] 28.7 pg 26 - 34 pg [facility] MCHC (RBC) [Mass/Vol] 32.0 g/dL 31 - 3 7 g/dL [facility] MCV (RBC) [Entitic vol] 89.5 fL 80 - 100 fL [facility] Monocytes/100 WBC (Bld) 3 % 1 - 7 % [facility] Monocytes/100 WBC (Bld) 0.56 % [facility] Morphology [place] (Bld) [Interp] Normal [facility] Neutrophils/100 WBC (Bld) 96 % High 36 - 66 % [facility] Platelet mean volume (Bld) [Entitic vol] 9.0 fL 6.0 - 12.0 fL [facility] Platelets (Bld) [#/Vol] 218 10*3/uL [facility] RBC (Bld) [#/Vol] 4.17 10*6/uL 4.0 - 5.2 m/uL [facility] Segmented neutrophils/100 WBC (Bld) 17.85 % High [facility] WBC other (Bld) [#/Vol] 18.6 High [facility] CBC with Diffon 08-29-2024 Abs. Basophil 0.00 k/uL Normal 0.0-0.2 [facility] Comment on above: Performed By: #### B MPX, CDP, MG #### [facility] [address] [place] [address] Director Of Student Life: Anurag Menjivar DO Abs.Neutrophil (Seg) 17.85 k/uL High 1.3-9.[address] [facility] Comment on above: Performed By: #### B MPX, CDP, MG #### [facility] [address] [place] [address] Director Of Student Life: Anuarg Menjivar DO Basophils/100 WBC (Bld) 0 % Normal 0-2 [facility] Comment on above: Performed By: #### B MPX, CDP, MG #### [facility] [address] [place] [address] Director Of Student Life: Anurag Menjivar DO Eosinophils (Bld) [#/Vol] 0.00 10*3/uL Normal 0.0-0.4 [facility] Comment on above: Performed By: #### B MPX, CDP, MG #### [facility] [address] [place] [address] Director Of Student Life: Anurag Menjivar DO Eosinophils/100 WBC (Bld) 0 % Normal 0-4 [facility] Comment on above: Performed By: #### B MPX, CDP, MG #### [facility] [address] [place] [address] Director Of Student Life: Anurag Menjivar DO Lymphocytes (Bld) [#/Vol] 0.19 10*3/uL Low 1.0-4.8 [facility] Comment on above: Performed By: #### B MPX, CDP, MG #### [facility] [address] [place] [address] Director Of Student Life: Anurag Menjivar DO Lymphocytes/100 WBC (Bld) 1 % Low 24-44 [facility] Comment on above: Performed By: #### B MPX, CDP, MG #### [facility] [address] [place] [address] Director Of Student Life: Anurag Menjivar DO Monocytes (Bld) [#/Vol] 0.56 10*3/uL Normal 0.1-1.3 [facility] Comment on above: Performed By: #### B MPX, CDP, MG #### [facility] [address] [place] [address] Director Of Student Life: Anurag Menjivar DO Monocytes/100 WBC (Bld) 3 % Normal 1-7 [facility] Comment on above: Performed By: #### B MPX, CDP, MG #### [facility] [address] [place] [address] Director Of Student Life: Anurag Menjivar DO Morphology [place] (Bld) [Interp] Normal Normal [facility] Comment on above: Performed By: #### B MPX, CDP, MG #### [facility] [address] [facility] [place] [address] Director Of Student Life: Anurag Menjivar DO Neutrophil (Seg) 96 % High 36-66 [facility] Comment on above: Performed By: #### B MPX, CDP, MG #### [facility] [address] [place] [address] Director Of Student Life: Anurag Menjivar DO Erythrocyte distribution width (RBC) [Ratio] 14.8 % Normal 11.5-14.9 [facility] Comment on above: Performed By: #### B MPX, CDP, MG #### [facility] [address] [place] [address] Director Of Student Life: Anurag Menjivar DO Hematocrit (Bld) [Volume fraction] 37.4 % Normal 36-46 [facility] Comment on above: Performed By: #### B MPX, CDP, MG #### [facility] [place] [address] Director Of Student Life: Anurag Menjivar DO Hemoglobin (Bld) [Mass/Vol] 12.0 g/dL Normal 12.0-16.0 [facility] Comment on above: Performed By: #### B MPX, CDP, MG #### [facility] [address] [place] [address] Director Of Student Life: Anurag Menjivar DO MCH (RBC) [Entitic mass] 28.7 pg Normal 26-34 [facility] Comment on above: Performed By: #### B MPX, CDP, MG #### [facility] [address] [place] [address] Director Of Student Life: Anurag Menjivar DO MCHC (RBC) [Mass/Vol] 32.0 g/dL Normal 31-37 [facility] Comment on above: Performed By: #### B MPX, CDP, MG #### [facility] [address] [place] [address] Director Of Student Life: Anurag Menjivar DO MCV (RBC) [Entitic vol] 89.5 fL Normal 80-100 [facility] Comment on above: Performed By: #### B MPX, CDP, MG #### [facility] [address] [place] [address] Director Of Student Life: Anurag Menjivar DO Platelet mean volume (Bld) [Entitic vol] 9.0 fL Normal 6.0-12.0 [facility] Comment on above: Performed By: #### B MPX, CDP, MG #### [facility] [address] [facility] [place] [address] Director Of Student Life: Anurag Menjivar DO Platelets (Bld) [#/Vol] 218 10*3/uL Normal 150-450 [facility] Comment on above: Performed By: #### B MPX, CDP, MG #### [facility] [address] [facility] [place] [address] Director Of Student Life: Anurag Menjivar DO RBC (Bld) [#/Vol] 4.17 10*6/uL Normal 4.0-5.2 [facility] Comment on above: Performed By: #### B MPX, CDP, MG #### [facility] [address] [facility] [place] [address] Director Of Student Life: Anurag Menjivar DO WBC (Bld) [#/Vol] 18.6 10*3/uL High 3.5-11.0 [facility] Comment on above: Performed By: #### B MPX, CDP, MG #### [facility] [place] [address] Director Of Student Life: Anurag Menjivar DO Cult,Urineon 08-29-2024 Cult,Urine Specimen Description .CLEAN CATCH URINE Special Requests Site: Urine Culture NO GROWTH Report Status FINAL 08/29/2024 Normal [facility] Comment on above: Performed By: #### U RC #### [facility] [address] [place] [address] Director Of Student Life: Anurag Menjivar DO [address] [id number] Director Of Student Life: Ashish Goetz MD Culture, Urineon 08-29-2024 Microorganism identified Cx Nom (Unsp spec) NO GROWTH [facility] Service comment (Unsp spec) [Interp] Site: Urine [facility] Specimen Description .CLEAN CATCH URINE [facility] EKG 12 LeadOrdered By: Cristian Hallman on 08-29-2024 Atrial Rate 97 BPM [employer] Work Phone: P [place] 84 degrees Bon [employer] Work Phone: P-R Interval 122 ms [employer] Work Phone: Q-T Interval 320 ms [employer] Work Phone: QRS Duration 88 ms [employer] Work Phone: QTc Calculation (Bazett) 406 ms [employer] Work Phone: R [place] 57 degrees [employer] Work Phone: T [place] -119 degrees [employer] Work Phone: Ventricular Rate 97 BPM [facility] [email or web address] Work Phone: [employer] Work Phone: EKG 12 Leadon 08-29-2024 Normal sinus rhythm Right atrial enlargement ST & T wave abnormality, consider inferior ischemia ST & T wave abnormality, consider anterolateral ischemia Abnormal ECG When compared with ECG of 28-AUG-2024 14:12, (unconfirmed) Premature ventricular complexes are no longer Present [facility] Cristian Vicente, - 08/29/2024 Normal sinus rhythm Right atrial enlargement ST & T wave abnormality, consider inferior ischemia ST & T wave abnormality, consider anterolateral ischemia Abnormal ECG When compared with ECG of 28-AUG-2024 14:12, (unconfirmed) Premature ventricular complexes are no longer Present [employer] Glucose,Whole Bloodon 2024 Glucose [Mass/Vol] 177 mg/dL High 65-105 [facility] Glucose [Mass/Vol] 227 mg/dL High 65-105 [facility] Glucose [Mass/Vol] 191 mg/dL High 65-105 [facility] Glucose [Mass/Vol] 222 mg/dL High 65-105 [facility] MRSA, DNA, Nasalon Specimen Description .NASAL SWAB Normal [facility] Comment on above: Performed By: #### B MPX, TOM, MG #### [facility] [address] [place] [address] Director Of Student Life: Anurag Menjivar DO POC Glucose Fingerstickon Glucose [Mass/Vol] 177 mg/dL High 65 - 105 mg/dL [facility] Interpretation and review of laboratory results Abnormal [facility] Glucose [Mass/Vol] 227 mg/dL High 65 - 105 mg/dL [facility] Interpretation and review of laboratory results Abnormal [facility] Glucose [Mass/Vol] 191 mg/dL High 65 - 105 mg/dL [facility] Interpretation and review of laboratory results Abnormal [facility] Glucose [Mass/Vol] 222 mg/dL High 65 - 105 mg/dL [facility] Interpretation and review of laboratory results Abnormal [facility] Alanine aminotransferase [En zymatic activity/volume] in Serum or PlasmaOrdered By: King Weinberg on 08-28-2024 ALT [Catalytic activity/Vol] Alanine aminotransferase [Enzymatic activity/volume] in Serum or Plasma 7-52 [facility] Albumin [Mass/volume] in Ser um or Plasma by Bromocresol green (BCG) dye binding methoOrdered By: King Weinberg on 08-28-2024 Albumin BCG dye [Mass/Vol] Albumin [Mass/volume] in Serum or Plasma by Bromocresol green (BCG) dye binding metho 3.5-5.7 [facility] Alkaline phosphatase [Enzyma tic activity/volume] in Serum or PlasmaOrdered By: King Weinberg on 08-28-2024 ALP [Catalytic activity/Vol] Alkaline phosphatase [Enzymatic activity/volume] in Serum or Plasma 34-104 [facility] Aspartate aminotransferase [ Enzymatic activity/volume] in Serum or PlasmaOrdered By: King Weinberg on 08-28-2024 AST [Catalytic activity/Vol] Aspartate aminotransferase [Enzymatic activity/volume] in Serum or Plasma 13-39 [facility] B-Type Natriuretic Peptideon 08-28-2024 Natriuretic peptide B (Bld) [Mass/Vol] 360.0 pg/mL High 5-100 [facility] Comment on above: Result Comment: PERF ORMED BY: [place] [address] PATHOLOGIST ENERGY TECHNICIAN RODOLFO BOONE M.D. Performed By: #### I SCRE #### [address] Basic Metabolic Panelon 08-18 Anion gap [Moles/Vol] 11.2 mmol/L Normal 6.0-15.0 [facility] Comment on above: Performed By: #### I SCRE #### [address] Calcium [Mass/Vol] 8.5 mg/dL Low 8.6-10.3 [facility] Comment on above: Performed By: #### I SCRE #### [address] Chloride [Moles/Vol] 101 mmol/L Normal 98-107 [facility] Comment on above: Performed By: #### I SCRE #### [address] CO2 [Moles/Vol] 26.4 mmol/L Normal 21.0-31.0 [facility] Comment on above: Performed By: #### I SCRE #### [address] Creatinine [Mass/Vol] 1.09 mg/dL Normal 0.60-1.20 [facility] Comment on above: Performed By: #### I SCRE #### [place] [address] [place] Creatinine Clr Calc Pharmacy 34.50 Normal [facility] Comment on above: Result Comment: PERF ORMED BY: [place] [address] PATHOLOGIST ENERGY TECHNICIAN RODOLFO BOONE M.D. Performed By: #### I SCRE #### [address] Estimated GFR 54.652 mL/Min Normal [facility] Comment on above: Performed By: #### I SCRE #### [address] Glucose [Mass/Vol] 118 mg/dL High 70-100 [facility] Comment on above: Result Comment: [place] Glucose Reference Range is dependent on time and content of last meal. Glucose of more than 200 mg/dL in a nonstressed, ambulatory subject supports the diagnosis of Diabetes Mellitus. ADA recommended reference range Performed By: #### I SCRE #### [address] Potassium [Moles/Vol] 3.6 mmol/L Normal 3.5-5.1 [facility] Comment on above: Performed By: #### I SCRE #### [address] Sodium [Moles/Vol] 135 mmol/L Low 136-145 [facility] Comment on above: Performed By: #### I SCRE #### [address] Urea nitrogen [Mass/Vol] 10 mg/dL Normal 7-25 [facility] Comment on above: Performed By: #### I SCRE #### [place] [address] [place] Basophils Auto (Bld) [#/Vol] Ordered By: King Weinberg on 08-28-2024 Basophils (Bld) [#/Vol] Automated basophil count 0.0-0.2 [facility] Basophils/100 WBC Auto (Bld) Ordered By: King Weinberg on 08-28-2024 Basophils/100 WBC (Bld) Automated basophil % . [facility] Bilirubin.direct [Mass/volum e] in Serum or PlasmaOrdered By: King Weinberg on 08-28-2024 Bilirubin.direct [Mass/Vol] Bilirubin.direct [Mass/volume] in Serum or Plasma 0.03-0.18 [facility] Bilirubin.total [Mass/volume ] in Serum or PlasmaOrdered By: King Weinberg on 08-28-2024 Bilirubin [Mass/Vol] Bilirubin.total [Mass/volume] in Serum or Plasma 0.3-1.0 [facility] BioFire Not Detectedon 08-28 BioFire Not Detected Not detected Normal Not Detecte [facility] Comment on above: Result Comment: This is a duplicate RP2.1 COVID (PCR) result to be used for statistical tracking purpose only. PERFORMED BY: [facility] [address] [place] [address] PATHOLOGIST ENERGY TECHNICIAN RODOLFO BOONE M.D. Performed By: #### T SH3 wRFLX, CBC, LIPID, CMP #### [facility] [address] CBC with Auto Differentialon 08-28-2024 Basophils (Bld) [#/Vol] 0.00 10*3/uL [facility] Basophils/100 WBC (Bld) 0 % 0 - 2 % [facility] Eosinophils (Bld) [#/Vol] 0.19 10*3/uL [facility] Eosinophils/100 WBC (Bld) 1 % 0 - 4 % [facility] Erythrocyte distribution width (RBC) [Ratio] 14.5 % 11.5 - 14.9 % [facility] Hematocrit (Bld) [Volume fraction] 40.7 % 36 - 46 % [facility] Hemoglobin (Bld) [Mass/Vol] 12.9 g/dL 12.0 - 16.0 g/dL [facility] Interpretation and review of laboratory results Abnormal [facility] Lymphocytes/100 WBC (Bld) 3 % Low 24 - 44 % [facility] Lymphocytes/100 WBC (Bld) 0.57 % Low [facility] MCH (RBC) [Entitic mass] 28.0 pg 26 - 34 pg [facility] MCHC (RBC) [Mass/Vol] 31.6 g/dL 31 - 3 7 g/dL [facility] MCV (RBC) [Entitic vol] 88.6 fL 80 - 100 fL [facility] Monocytes/100 WBC (Bld) 7 % 1 - 7 % [facility] Monocytes/100 WBC (Bld) 1.33 % High [facility] Morphology [place] (Bld) [Interp] Normal [facility] Neutrophils/100 WBC (Bld) 89 % High 36 - 66 % [facility] Platelet mean volume (Bld) [Entitic vol] 9.0 fL 6.0 - 12.0 fL [facility] Platelets (Bld) [#/Vol] 198 10*3/uL [facility] RBC (Bld) [#/Vol] 4.59 10*6/uL 4.0 - 5.2 m/uL [facility] Segmented neutrophils/100 WBC (Bld) 16.91 % High [facility] WBC other (Bld) [#/Vol] 19.0 High [facility] CBC with Diffon 08-28-2024 Abs. Basophil 0.00 k/uL Normal 0.0-0.2 [facility] Comment on above: Performed By: #### U RC #### [facility] [place] [address] Director Of Student Life: Anurag Menjivar DO [place] [id number] Director Of Student Life: Ashish Goetz MD Abs.Neutrophil (Seg) 16.91 k/uL High 1.3-9.[address] [facility] Comment on above: Performed By: #### U RC #### [facility] [address] [place] [address] Director Of Student Life: Anurag Menjivar DO [facility] [address] [place], [place] [id number] Director Of Student Life: Ashish Goetz MD Basophils/100 WBC (Bld) 0 % Normal 0-2 [facility] Comment on above: Performed By: #### U RC #### [facility] [address] [place] [address] Director Of Student Life: Anurag Menjivar [address] [employer] [address] Director Of Student Life: Ashish Goetz MD Eosinophils (Bld) [#/Vol] 0.19 10*3/uL Normal 0.0-0.4 [facility] Comment on above: Performed By: #### U RC #### [facility] [address] [place] [address] Director Of Student Life: Anurag Menjivar [address] [address] Director Of Student Life: Ashish Goetz MD Eosinophils/100 WBC (Bld) 1 % Normal 0-4 [facility] Comment on above: Performed By: #### U RC #### [facility] [address] [place] [address] Director Of Student Life: Anurag Menjivar [address] [employer] [address] Director Of Student Life: Ashish Goetz MD Lymphocytes (Bld) [#/Vol] 0.57 10*3/uL Low 1.0-4.8 [facility] Comment on above: Performed By: #### U RC #### [facility] [address] [place] [address] Director Of Student Life: Anurag Menjivar [address] [address] Director Of Student Life: Ashish Goetz MD Lymphocytes/100 WBC (Bld) 3 % Low 24-44 [facility] Comment on above: Performed By: #### U RC #### [facility] [address] [place] [address] Director Of Student Life: Anurag Menjivar [address] [address] Director Of Student Life: Ashish Goetz MD Monocytes (Bld) [#/Vol] 1.33 10*3/uL High 0.1-1.3 [facility] Comment on above: Performed By: #### U RC #### [facility] [address] [place] [address] Director Of Student Life: Anurag Menjivar [address] [address] Director Of Student Life: Ashish Goetz MD Monocytes/100 WBC (Bld) 7 % Normal 1-7 [facility] Comment on above: Performed By: #### U RC #### [facility] [address] [place], [place] [address] [place] [address] Director Of Student Life: Anurag Menjivar [address] [address] Director Of Student Life: Ashish Goetz MD Morphology [place] (Bld) [Interp] Normal Normal [facility] Comment on above: Performed By: #### U RC #### [facility] [address] [place], [place] [address] [address] Director Of Student Life: Anurag Menjivar [address] [address] Director Of Student Life: Ashish Goetz MD Neutrophil (Seg) 89 % High 36-66 [facility] Comment on above: Performed By: #### U RC #### [facility] [place] [address] Director Of Student Life: Anurag Menjivar [address] [address] Director Of Student Life: Ashish Goetz MD Erythrocyte distribution width (RBC) [Ratio] 14.5 % Normal 11.5-14.9 [facility] Comment on above: Performed By: #### U RC #### [facility] [address] [place] [address] Director Of Student Life: Anurag Menjivar [address] [address] Director Of Student Life: Ashish Goetz MD Hematocrit (Bld) [Volume fraction] 40.7 % Normal 36-46 [facility] Comment on above: Performed By: #### U RC #### [facility] [address] [place] [address] Director Of Student Life: Anurag Menjivar [address] [address] Director Of Student Life: Ashish Goetz MD Hemoglobin (Bld) [Mass/Vol] 12.9 g/dL Normal 12.0-16.0 [facility] Comment on above: Performed By: #### U RC #### [facility] [address] [place] [address] Director Of Student Life: Anurag Menjivar [address] [address] Director Of Student Life: Ashish Goetz MD MCH (RBC) [Entitic mass] 28.0 pg Normal 26-34 [facility] Comment on above: Performed By: #### U RC #### [facility] [address] [place] [address] Director Of Student Life: Anurag Menjivar [address] [address] Director Of Student Life: Ashish Goetz MD MCHC (RBC) [Mass/Vol] 31.6 g/dL Normal 31-37 [facility] Comment on above: Performed By: #### U RC #### [facility] [address] [place] [address] Director Of Student Life: Anurag Menjivar [address] [address] Director Of Student Life: Ashish Goetz MD MCV (RBC) [Entitic vol] 88.6 fL Normal 80-100 [facility] Comment on above: Performed By: #### U RC #### [facility] [address] [place] [address] Director Of Student Life: Anurag Menjivar [address] [address] Director Of Student Life: Ashish Goetz MD Platelet mean volume (Bld) [Entitic vol] 9.0 fL Normal 6.0-12.0 [facility] Comment on above: Performed By: #### U RC #### [facility] [address] [place] [address] Director Of Student Life: Anurag Menjivar [address] [address] Director Of Student Life: Ashish Goetz MD Platelets (Bld) [#/Vol] 198 10*3/uL Normal 150-450 [facility] Comment on above: Performed By: #### U RC #### [facility] [place] [address] Director Of Student Life: Anurag Menjivar [address] [address] Director Of Student Life: Ashish Goetz MD RBC (Bld) [#/Vol] 4.59 10*6/uL Normal 4.0-5.2 [facility] Comment on above: Performed By: #### U RC #### [facility] [address] [place] [address] Director Of Student Life: Anurag Menjivar [address] [address] Director Of Student Life: Ashish Goetz MD WBC (Bld) [#/Vol] 19.0 10*3/uL High 3.5-11.0 [facility] Comment on above: Performed By: #### U #### [facility] [address] [place] [address] Director Of Student Life: Anurag Menjivar DO [facility] [address] [place], [place] [id number] Director Of Student Life: Ashish Goetz MD COVID-19 & Influenza Comboon 08-28-2024 FLUAV RNA ADALGISA+probe Ql (Resp) Detected Abnormal Not Detected [facility] FLUBV RNA ADALGISA+probe Ql (Resp) Not detected Not Detected [facility] Interpretation and review of laboratory results Abnormal [facility] SARS-CoV-2 (COVID-19) RNA AADLGISA+probe Ql (Resp) Not detected Not Detected [facility] Comment on above: Testing was performed using SHANICE Gilma SARS-CoV-2 and Influenza A/B nucleic acid assay. This test is a multiplex Real-Time Reverse Transcriptase Polymerase Chain Reaction (RT-PCR)-based in vitro diagnostic test intended for the qualitative detection of nucleic acids from SARS-CoV-2, influenza A, and influenza B in nasopharyngeal and nasal swab specimens. Not Detected results do not preclude SARS-CoV-2 infection and should not be used as the sole basis for patient management decisions. Negative results must be combined with clinical observations, patient history, and epidemiological information. Source .NASOPHARYNGEAL SWAB [facility] Specimen Description .NASOPHARYNGEAL SWAB [facility] COVID-19 Detected/Not Detect edOrdered By: King Weinberg on 08-28-2024 SARS-CoV-2 (COVID-19) RNA ADALGISA+non-probe Ql (Nph) Not detected Not Detecte [facility] Comment on above: This is a duplicate RP2.1 COVID (PCR) result to be used for statistical tracking purpose only. Calcium [Mass/volume] in Ser um or PlasmaOrdered By: King Weinberg on 08-28-2024 Calcium [Mass/Vol] Calcium [Mass/volume ] in Serum or Plasma Low 8.6-10.3 [facility] Carbon dioxide, total [Moles /volume] in Serum or PlasmaOrdered By: King Weinberg on 08-28-2024 CO2 [Moles/Vol] Carbon dioxide, tota l [Moles/volume] in Serum or Plasma 21.0-31.0 [facility] Chloride [Moles/volume] in S tiffanie or PlasmaOrdered By: King Weinberg on 08-28-2024 Chloride [Moles/Vol] Chloride [Moles/vol ume] in Serum or Plasma 98-107 [facility] Comp Metabolic Profon 2024 Albumin [Mass/Vol] 4.0 g/dL Normal 3.5-5.2 [facility] Comment on above: Performed By: #### U RC #### [facility] [address] [place] [address] Director Of Student Life: Anurag Menjivar [address] [address] Director Of Student Life: Ashish Goetz MD Alkaline Phos 102 U/L Normal 35-104 [facility] Comment on above: Performed By: #### U RC #### [facility] [address] [place] [address] Director Of Student Life: Anurag Menjivar [address] [address] Director Of Student Life: Ashish Goetz MD ALT [Catalytic activity/Vol] 14 U/L Normal 10-35 [facility] Comment on above: Performed By: #### U RC #### [facility] [address] [place] [address] Director Of Student Life: Anurag Menjivar [address] [address] Director Of Student Life: Ashish Goetz MD Anion gap [Moles/Vol] 13 mmol/L Normal 9-16 [facility] Comment on above: Performed By: #### U RC #### [facility] [address] [place] [address] Director Of Student Life: Fanelly, Anurag, [address] [address] Director Of Student Life: Ashish Goetz MD AST [Catalytic activity/Vol] 36 U/L High 10-35 [facility] Comment on above: Performed By: #### U RC #### [facility] [address] [place] [address] Director Of Student Life: Anurag Menjivar [address] [address] Director Of Student Life: Ashish Goetz MD Bilirubin [Mass/Vol] 0.4 mg/dL Normal 0.0-1.[address] [facility] Comment on above: Performed By: #### U RC #### [facility] [address] [place] [address] Director Of Student Life: Anurag Menjivar [address] [address] Director Of Student Life: Ashish Goetz MD Calcium [Mass/Vol] 8.5 mg/dL Low 8.6-10.4 [facility] Comment on above: Performed By: #### U RC #### [facility] [address] [place] [address] Director Of Student Life: Anurag Menjivar [address] [address] Director Of Student Life: Ashish Goetz MD Chloride [Moles/Vol] 96 mmol/L Low 98-[address] [facility] Comment on above: Performed By: #### U RC #### [facility] [address] [place] [address] Director Of Student Life: Anurag Menjivar [address] [address] Director Of Student Life: Ashish Goetz MD CO2 [Moles/Vol] 26 mmol/L Normal 20-31 [facility] Comment on above: Performed By: #### U RC #### [facility] [address] [place] [address] Director Of Student Life: Anurag Menjivar DO [address] [address] Director Of Student Life: Ashish Goetz MD Creatinine [Mass/Vol] 1.0 mg/dL Normal 0.7-1.2 [facility] Comment on above: Performed By: #### U RC #### [facility] [address] [place] [address] Director Of Student Life: Anurag Menjivar [address] [address] Director Of Student Life: Ashish Goetz MD GFR/1.73 sq M.predicted among non-blacks MDRD (S/P/Bld) [Vol rate/Area] 61 mL/min/{1.73_m2} Normal >60 [facility] Comment on above: Result Comment: These results are not intended for use in patients <18 years of age. eGFR results are calculated without a race factor using the 2020 CKD-EPI equation. Careful clinical correlation is recommended, particularly when comparing to results calculated using previous equations. The CKD-EPI equation is less accurate in patients with extremes of muscle mass, extra-renal metabolism of creatine, excessive creatine ingestion, or following therapy that affects renal tubular secretion. Performed By: #### U RC #### [facility] [address] [place] [address] Director Of Student Life: Anurag Menjivar DO [address] [address] Director Of Student Life: Ashish Goetz MD Glucose [Mass/Vol] 127 mg/dL High 74-99 [facility] Comment on above: Performed By: #### U RC #### [facility] [address] [place] [address] Director Of Student Life: Anurag Menjivar DO [address] [address] Director Of Student Life: Ashish Goetz MD Potassium [Moles/Vol] 3.7 mmol/L Normal 3.7-5.3 [facility] Comment on above: Result Comment: Spec imen hemolysis has exceeded the interference as defined by Froilan. Value may be falsely increased. Suggest recollection if clinically indicated. Performed By: #### U RC #### [facility] [address] [place] [address] Director Of Student Life: Anurag Menjivar [address] [address] Director Of Student Life: Ashish Goetz MD Protein [Mass/Vol] 7.4 g/dL Normal 6.6-8.7 [facility] Comment on above: Performed By: #### U RC #### [facility] [address] [place] [address] Director Of Student Life: Anurag Menjivar [address] [address] Director Of Student Life: Ashish Goetz MD Sodium [Moles/Vol] 135 mmol/L Low 136-145 [facility] Comment on above: Performed By: #### U RC #### [facility] [address] [place] [address] Director Of Student Life: Anurag Menjivar [address] [address] Director Of Student Life: Ashish Goetz MD Urea nitrogen [Mass/Vol] 10 mg/dL Normal 8-23 [facility] Comment on above: Performed By: #### U RC #### [facility] [address] [place] [address] Director Of Student Life: Anurag Menjivar [address] [address] Director Of Student Life: Ashish Goetz MD Complete Blood Count Auto Di ffon 08-28-2024 Basophils (Bld) [#/Vol] 0.1 10*3/uL Normal 0.0-0.2 [facility] Comment on above: Result Comment: PERF ORMED BY: [place] [address] PATHOLOGIST ENERGY TECHNICIAN RODOLFO BOONE M.D. Performed By: #### B MP, PT, CBC, HS TROP, HEPATIC, CK, BNP #### [address] Basophils/100 WBC (Bld) 0.6 % Normal . [facility] Comment on above: Performed By: #### B MP, PT, CBC, HS TROP, HEPATIC, CK, BNP #### [address] Eosinophils (Bld) [#/Vol] 0.1 10*3/uL Normal 0.0-0.45 [facility] Comment on above: Performed By: #### B MP, PT, CBC, HS TROP, HEPATIC, CK, BNP #### [address] Eosinophils/100 WBC (Bld) 0.4 % Normal . [facility] Comment on above: Performed By: #### B MP, PT, CBC, HS TROP, HEPATIC, CK, BNP #### [address] Erythrocyte distribution width (RBC) [Ratio] 14.6 % Normal 11.9-15.3 [facility] Comment on above: Performed By: #### B MP, PT, CBC, HS TROP, HEPATIC, CK, BNP #### [address] Hematocrit (Bld) [Volume fraction] 38.7 % Normal 34.0-46.4 [facility] Comment on above: Performed By: #### B MP, PT, CBC, HS TROP, HEPATIC, CK, BNP #### [place] [address] [place] Hemoglobin (Bld) [Mass/Vol] 12.7 g/dL Normal 11.8-15.4 [facility] Comment on above: Performed By: #### B MP, PT, CBC, HS TROP, HEPATIC, CK, BNP #### [address] Lymphocytes (Bld) [#/Vol] 1.0 10*3/uL Normal 1.00-4.8 [facility] Comment on above: Performed By: #### B MP, PT, CBC, HS TROP, HEPATIC, CK, BNP #### [address] Lymphocytes/100 WBC (Bld) 5.5 % Normal . [facility] Comment on above: Performed By: #### B MP, PT, CBC, HS TROP, HEPATIC, CK, BNP #### [address] MCH (RBC) [Entitic mass] 28.6 pg Normal 24.7-34.3 [facility] Comment on above: Performed By: #### B MP, PT, CBC, HS TROP, HEPATIC, CK, BNP #### [address] MCV (RBC) [Entitic vol] 87.3 fL Normal 80-100 [facility] Comment on above: Performed By: #### B MP, PT, CBC, HS TROP, HEPATIC, CK, BNP #### [address] Mean Corpuscular HGB Conc 32.8 g/dL Normal 32.0-35.0 [facility] Comment on above: Performed By: #### B MP, PT, CBC, HS TROP, HEPATIC, CK, BNP #### [address] Monocytes (Bld) [#/Vol] 1.3 10*3/uL High 0.0-0.8 [facility] Comment on above: Performed By: #### B MP, PT, CBC, HS TROP, HEPATIC, CK, BNP #### [address] [place] [address] [place] Monocytes/100 WBC (Bld) 23.44 % High 0.00-20.00 [facility] Comment on above: Result Comment: For adults in ED, MDW > 20.0 may be associated with a higher risk of sepsis during the first 12 hrs of hospital admission Performed By: #### B MP, PT, CBC, HS TROP, HEPATIC, CK, BNP #### [address] Monocytes/100 WBC (Bld) 7.5 % Normal . [facility] Comment on above: Performed By: #### B MP, PT, CBC, HS TROP, HEPATIC, CK, BNP #### [address] Neutrophils (Bld) [#/Vol] 14.8 10*3/uL High 1.8-7.7 [facility] Comment on above: Performed By: #### B MP, PT, CBC, HS TROP, HEPATIC, CK, BNP #### [address] Neutrophils/100 WBC (Bld) 86.0 % Normal . [facility] Comment on above: Performed By: #### B MP, PT, CBC, HS TROP, HEPATIC, CK, BNP #### [address] NRBC% 0.0 /100{WBC} Normal 0-0.5 [facility] Comment on above: Performed By: #### B MP, PT, CBC, HS TROP, HEPATIC, CK, BNP #### [address] Platelet mean volume (Bld) [Entitic vol] 9.1 fL Normal 6.3-10.7 [facility] Comment on above: Performed By: #### B MP, PT, CBC, HS TROP, HEPATIC, CK, BNP #### [address] Platelets (Bld) [#/Vol] 219 10*3/uL Normal 150-450 [facility] Comment on above: Performed By: #### B MP, PT, CBC, HS TROP, HEPATIC, CK, BNP #### [facility] [address] RBC (Bld) [#/Vol] 4.43 10*6/uL Normal 3.60-5.00 [facility] Comment on above: Performed By: #### B MP, PT, CBC, HS TROP, HEPATIC, CK, BNP #### [facility] [address] WBC (Bld) [#/Vol] 17.3 10*3/uL High 3.8-11.6 [facility] Comment on above: Performed By: #### B MP, PT, CBC, HS TROP, HEPATIC, CK, BNP #### [facility] [address] Comprehensive Metabolic Pane margarita 08-28-2024 Albumin [Mass/Vol] 4.0 g/dL 3.5 - 5.2 g/dL [facility] ALP [Catalytic activity/Vol] 102 U/L 35 - 104 U/L [facility] ALT [Catalytic activity/Vol] 14 U/L 10 - 35 U/L [facility] Anion gap [Moles/Vol] 13 mmol/L 9 - 16 mmol/L [facility] AST [Catalytic activity/Vol] 36 U/L High 10 - 35 U/L [facility] Bilirubin [Mass/Vol] 0.4 mg/dL 0.0 - 1 .2 mg/dL [facility] Calcium [Mass/Vol] 8.5 mg/dL Low 8.6 - 10. 4 mg/dL [facility] Chloride [Moles/Vol] 96 mmol/L Low 98 - 10 7 mmol/L [facility] CO2 [Moles/Vol] 26 mmol/L 20 - 31 mmol/L [facility] Creatinine [Mass/Vol] 1.0 mg/dL 0.7 - 1.2 mg/dL [facility] Est, Glom Filt Rate 61 - [facility] Comment on above: These results are not intended for use in patients <18 years of age. eGFR results are calculated without a race factor using the 2020 CKD-EPI equation. Careful clinical correlation is recommended, particularly when comparing to results calculated using previous equations. The CKD-EPI equation is less accurate in patients with extremes of muscle mass, extra-renal metabolism of creatine, excessive creatine ingestion, or following therapy that affects renal tubular secretion. Glucose [Mass/Vol] 127 mg/dL High 74 - 99 mg/dL [facility] Potassium [Moles/Vol] 3.7 mmol/L 3.7 - 5.3 mmol/L [facility] Comment on above: Specimen hemolysis h as exceeded the interference as defined by Froilan. Value may be falsely increased. Suggest recollection if clinically indicated. Protein [Mass/Vol] 7.4 g/dL 6.6 - 8.7 g/dL [facility] Sodium [Moles/Vol] 135 mmol/L Low 136 - 145 mmol/L [facility] Urea nitrogen [Mass/Vol] 10 mg/dL 8 - 23 mg/dL [facility] Creatine Kinaseon 08-28-2024 CK [Catalytic activity/Vol] 83 U/L Normal [facility] Comment on above: Performed By: #### I SCRE #### [address] Creatine kinase [Enzymatic a ctivity/volume] in Serum or PlasmaOrdered By: King Weinberg on 08-28-2024 CK [Catalytic activity/Vol] Creatine kinase [Enzymatic activity/volume] in Serum or Plasma [facility] Creatinine [Mass/volume] in Serum or PlasmaOrdered By: King Weinberg on 08-28-2024 Creatinine [Mass/Vol] Creatinine [Mass/v olume] in Serum or Plasma 0.60-1.20 [facility] ECG 12 lead ECGon 08-28-2024 ECG 12 lead ECG [facility] [place] [address] Electrocardiograph Report Signed Patient: Kym Briscoe MR#: [id number] 42 : 1955 Acct:[id number] Age/Sex: 68 / F ADM Date: 08/28/24 Loc: ER Room: Type: DEP ER Attending Dr: Ordering Provider: King Weinberg DO Date of Service: 08/28/2406/11/919 ECG/ECG 12 lead ECG: CHEST PAIN Copies to: Test Reason : Blood Pressure : 80/40 mmHG Vent. Rate : 70 BPM Atrial Rate : 70 BPM P-R Int : 130 ms QRS Dur : 80 ms QT Int : 410 ms P-R-T Axes : 95 82 -69 degrees QTcB Int : 442 ms Normal sinus rhythm Right atrial enlargement Abnormal ECG When compared with ECG of 11-May-2024 18:59, ST now depressed in Inferior leads QT has lengthened Confirmed by King Weinberg DO ([id number]) on 08/28/2024 3:31:52 PM Referred By: Electronically Signed By: King Weinberg DO Transcribed By: MUS Signed By King Weinberg DO 5 1531 Normal [facility] Eosinophils Auto (Bld) [#/Vo l]Ordered By: King Weinberg on 08-28-2024 Eosinophils (Bld) [#/Vol] Automated eosinophil count 0.0-0.45 [facility] Eosinophils/100 WBC Auto (Bl d)Ordered By: Kign Weinberg on 08-28-2024 Eosinophils/100 WBC (Bld) Automated eosinophil % . [facility] Erythrocyte distribution wid th Auto (RBC) [Ratio]Ordered By: King Weinberg on 08-28-2024 Erythrocyte distribution width (RBC) [Ratio] Erythrocyte distribution width [Ratio] by Automated count 11.9-15.3 [facility] Globulin Calc (S) [Mass/Vol] Ordered By: King Weinberg on 08-28-2024 Globulin (S) [Mass/Vol] Serum globulin measurement by calculation (mass/volume) [facility] Glucose [Mass/volume] in Ser um or PlasmaOrdered By: King Weinberg on 08-28-2024 Glucose [Mass/Vol] Glucose [Mass/volume ] in Serum or Plasma High 70-100 [facility] Comment on above: ADA recommended refe rence rangeRandom Glucose Reference Range is dependent on time and content of last meal. Glucose of more than 200 mg/dL in a nonstressed, ambulatory subject supports the diagnosis of Diabetes Mellitus. Glucose,Whole Bloodon 2024 Glucose [Mass/Vol] 159 mg/dL High 65-105 [facility] Glucose [Mass/Vol] 194 mg/dL High 65-105 [facility] Glucose [Mass/Vol] 169 mg/dL High 65-105 [facility] Hematocrit Auto (Bld) [Volum e fraction]Ordered By: King Weinberg on 08-28-2024 Hematocrit (Bld) [Volume fraction] Hematocrit [Volume Fraction] of Blood by Automated count 34.0-46.4 [facility] Hemoglobin [Mass/volume] in BloodOrdered By: King Weinberg on 08-28-2024 Hemoglobin (Bld) [Mass/Vol] Hemoglobin [Mass/volume] in Blood 11.8-15.4 [facility] Hepatic Panelon 08-28-2024 Albumin [Mass/Vol] 3.8 g/dL Normal 3.5-5.7 [facility] Comment on above: Performed By: #### I SCRE #### [address] Albumin/Globulin [Mass ratio] 1.3 {ratio} Normal [facility] Comment on above: Performed By: #### I SCRE #### [facility] [address] [place] [address] [place] ALP [Catalytic activity/Vol] 83 U/L Normal 34-104 [facility] Comment on above: Performed By: #### I SCRE #### [facility] [address] [place] [address] [place] ALT [Catalytic activity/Vol] 10 U/L Normal 7-52 [facility] Comment on above: Performed By: #### I SCRE #### [facility] [address] [place] [id number] [place] AST [Catalytic activity/Vol] 22 U/L Normal 13-39 [facility] Comment on above: Performed By: #### I SCRE #### [address] Bilirubin [Mass/Vol] 0.4 mg/dL Normal 0.3-1.0 [facility] Comment on above: Performed By: #### I SCRE #### [address] Bilirubin,Indirect 0.3 mg/dL Normal [facility] Comment on above: Performed By: #### I SCRE #### [facility] [address] Bilirubin.indirect [Mass/Vol] 0.10 mg/dL Normal 0.03-0.18 [facility] Comment on above: Performed By: #### I SCRE #### [address] Globulin (S) [Mass/Vol] 2.9 g/dL Normal [facility] Comment on above: Performed By: #### I SCRE #### [address] Protein [Mass/Vol] 6.7 g/dL Normal 6.4-8.9 [facility] Comment on above: Performed By: #### I SCRE #### [address] INR in Platelet poor plasma by Coagulation assayOrdered By: King Weinberg on 08-28-2024 INR Coag (PPP) [Relative time] INR in Platelet poor plasma by Coagulation assay [facility] Comment on above: INR Therapeutic Rang e A) Pre- and Peroperative OAT started two weeks before surgery. NOT HIP SURGERY: 1.5 - 2.5 HIP SURGERY: 2 - 3B) Primary and secondary prevention of venous THROMBOSIS: 2 - 3C) Active venous thrombosis, pulmonary embolismand prevention of recurrent venous thrombosis: 2 - 3D) Prevention of arterial thromboembolismincluding patients with mechanical heart valves: 3 - 4.5 Lactic Acidon 08-28-2024 Lactate (BldV) [Moles/Vol] 1.1 mmol/L 0.5 - 2.2 mmol/L [facility] Lactate [Moles/Vol] 1.1 mmol/L Normal 0.5-2.2 [facility] Comment on above: Performed By: #### L ACTIC #### [facility] [address] [place] [address] Director Of Student Life: Anurag Menjivar DO Leukocytes [#/volume] correc gilma for nucleated erythrocytes in Blood by Automated counOrdered By: King Weinberg on 08-28-2024 WBC corrected for nucl RBC Auto (Bld) [#/Vol] Leukocytes [#/volume] corrected for nucleated erythrocytes in Blood by Automated coun High 3.8-11.6 [facility] Lymphocytes Auto (Bld) [#/Vo l]Ordered By: King Weinberg on 08-28-2024 Lymphocytes (Bld) [#/Vol] Lymphocytes [#/volume] in Blood by Automated count 1.00-4.8 [facility] Lymphocytes/100 WBC Auto (Bl d)Ordered By: King Weinberg on 08-28-2024 Lymphocytes/100 WBC (Bld) Lymphocytes/100 leukocytes in Blood by Automated count . [facility] MCH Auto (RBC) [Entitic mass ]Ordered By: King Weinberg on 08-28-2024 MCH (RBC) [Entitic mass] MCH [Entitic mass] by Automated count 24.7-34.3 [facility] MCHC Auto (RBC) [Mass/Vol]Or dered By: King Weinberg on 08-28-2024 MCHC (RBC) [Mass/Vol] MCHC [Mass/volume] by Automated count 32.0-35.0 [facility] MCV Auto (RBC) [Entitic vol] Ordered By: King Weinberg on 08-28-2024 MCV (RBC) [Entitic vol] MCV [Entitic volume] by Automated count 80-100 [facility] Magnesiumon 08-28-2024 Magnesium [Mass/Vol] 1.3 mg/dL Low 1.6 - 2 .4 mg/dL [facility] Magnesium [Mass/Vol] 1.3 mg/dL Low 1.6-2.[address] [facility] Comment on above: Performed By: #### U #### [facility] [address] [place] [address] Director Of Student Life: Anurag Menjivar DO [facility] [address] [place] [address] Director Of Student Life: Ashish Goetz MD Monocyte distribution width [Entitic volume] in Blood by AutomatedOrdered By: King Weinberg on 08-28-2024 Monocyte distribution width Auto (Bld) [Entitic vol] Monocyte distribution width [Entitic volume] in Blood by Automated High 0.00-20.00 [facility] Comment on above: For adults in ED, MD W > 20.0 may be associated with a higher risk of sepsis during the first 12 hrs of hospital admission Monocytes Auto (Bld) [#/Vol] Ordered By: King Weinberg on 08-28-2024 Monocytes (Bld) [#/Vol] Automated blood monocyte count High 0.0-0.8 [facility] Monocytes/100 WBC Auto (Bld) Ordered By: King Weinberg on 08-28-2024 Monocytes/100 WBC (Bld) Automated monocyte % . [facility] Natriuretic peptide B [Mass/ Vol]Ordered By: King Weinberg on 08-28-2024 Natriuretic peptide B (Bld) [Mass/Vol] BNP ser/plas High 5-100 [facility] Neutrophils Auto (Bld) [#/Vo l]Ordered By: King Weinberg on 08-28-2024 Neutrophils (Bld) [#/Vol] Neutrophils [#/volume] in Blood by Automated count High 1.8-7.7 [facility] Neutrophils/100 WBC Auto (Bl d)Ordered By: King Weinberg on 08-28-2024 Neutrophils/100 WBC (Bld) Automated neutrophil % . [facility] No Panel Informationon 08-28 Interpretation and review of laboratory results [facility] Interpretation and review of laboratory results Abnormal [facility] No Panel InformationOrdered By: King Weinberg on 08-28-2024 Estimated GFR (CKD-EPI) 54.652 mL/Min [facility] Creatinine Clearance (Chem 34.50 [facility] Nucleated erythrocytes [Pres ence] in Blood by Automated countOrdered By: King Weinberg on 08-28-2024 Nucleated RBC Auto Ql (Bld) Nucleated erythrocytes [Presence] in Blood by Automated count 0-0.5 [facility] POC Glucose Fingerstickon Glucose [Mass/Vol] 159 mg/dL High 65 - 105 mg/dL [facility] Interpretation and review of laboratory results Abnormal [facility] Glucose [Mass/Vol] 194 mg/dL High 65 - 105 mg/dL [facility] Interpretation and review of laboratory results Abnormal [facility] Glucose [Mass/Vol] 169 mg/dL High 65 - 105 mg/dL [facility] Interpretation and review of laboratory results Abnormal [facility] Platelet mean volume Auto (B ld) [Entitic vol]Ordered By: King Weinberg on 08-28-2024 Platelet mean volume (Bld) [Entitic vol] Platelet mean volume [Entitic volume] in Blood by Automated count 6.3-10.7 [facility] Platelets Auto (Bld) [#/Vol] Ordered By: King Weinberg on 08-28-2024 Platelets (Bld) [#/Vol] Platelets [#/volume] in Blood by Automated count 150-450 [facility] Portable XR Chest AP single viewon 08-28-2024 1. Mild infiltrates in the lower lobes. 2. Apparent scarring in the right upper lobe. [facility] RIS CONSOLIDATED EXAMINATION: ONE XRAY VIEW OF THE CHEST 08/28/2024 12:53 pm COMPARISON: None. HISTORY: ORDERING SYSTEM PROVIDED HISTORY: cough TECHNOLOGIST PROVIDED HISTORY: cough Reason for Exam: Cough/pt recent diagnosis of pneumonia FINDINGS: There is apparent scarring in the right upper lobe. Mild infiltrates are noted in the the lower lobes lungs otherwise clear. The heart and mediastinal structures appear normal. Bony structures appear normal. [facility] RIS CONSOLIDATED Lev Markham MD - 08/28/2024 EXAMINATION: ONE XRAY VIEW OF THE CHEST 08/28/2024 12:53 pm COMPARISON: None. HISTORY: ORDERING SYSTEM PROVIDED HISTORY: cough TECHNOLOGIST PROVIDED HISTORY: cough Reason for Exam: Cough/pt recent diagnosis of pneumonia FINDINGS: There is apparent scarring in the right upper lobe. Mild infiltrates are noted in the the lower lobes lungs otherwise clear. The heart and mediastinal structures appear normal. Bony structures appear normal. IMPRESSION: 1. Mild infiltrates in the lower lobes. 2. Apparent scarring in the right upper lobe. [facility] Radiology Study observation (narrative) [facility] Portable XR Chest AP single viewOrdered By: Lev Markham on 08-28-2024 [facility] Work Phone: Potassium [Moles/volume] in Serum or PlasmaOrdered By: King Weinberg on 08-28-2024 Potassium [Moles/Vol] Potassium [Moles/v olume] in Serum or Plasma 3.5-5.1 [facility] Procalcitoninon 08-28-2024 Procalcitonin [Mass/Vol] 1.48 ng/mL High 0.00 - 0.09 ng/mL [facility] Comment on above: Suspected Sepsis: <0.50 ng/mL Low likelihood of sepsis. 0.50-2.00 ng/mL Increased likelihood of sepsis. Antibiotics encouraged. >2.00 ng/mL High risk of sepsis/shock. Antibiotics strongly encouraged. Suspected Lower Resp Tract Infections: <0.24 ng/mL Low likelihood of bacterial infection. >0.24 ng/mL Increased likelihood of bacterial infection. Antibiotics encouraged. With successful antibiotic therapy, PCT levels should decrease rapidly. (Half-life of 24 to 36 hours.) Procalcitonin values from samples collected within the first 6 hours of systemic infection may still be low. Retesting may be indicated. Values from day 1 and day 4 can be entered into the Change in Procalcitonin Calculator (www.seahfp-uav-vyfgxgcwjf.Livefyre) to determine the patient's Mortality Risk Prognosis In healthy neonates, plasma Procalcitonin (PCT) concentrations increase gradually after , reaching peak values at about 24 hours of age then decrease to normal values below 0.5 ng/mL by 48-72 hours of age. Procalcitonin 1.48 ng/mL High 0.00-0.09 [facility] Comment on above: Result Comment: Suspected Sepsis: <0.50 ng/mL Low likelihood of sepsis. 0.50-2.00 ng/mL Increased likelihood of sepsis. Antibiotics encouraged. >2.00 ng/mL High risk of sepsis/shock. Antibiotics strongly encouraged. Suspected Lower Resp Tract Infections: <0.24 ng/mL Low likelihood of bacterial infection. >0.24 ng/mL Increased likelihood of bacterial infection. Antibiotics encouraged. With successful antibiotic therapy, PCT levels should decrease rapidly. (Half-life of 24 to 36 hours.) Procalcitonin values from samples collected within the first 6 hours of systemic infection may still be low. Retesting may be indicated. Values from day 1 and day 4 can be entered into the Change in Procalcitonin Calculator (www.njjmvs-pzs-qvoahwlgrz.Livefyre) to determine the patient's Mortality Risk Prognosis In healthy neonates, plasma Procalcitonin (PCT) concentrations increase gradually after , reaching peak values at about 24 hours of age then decrease to normal values below 0.5 ng/mL by 48-72 hours of age. Performed By: #### B MPX, TOM, MG #### [facility] [address] [facility] [place] [address] Director Of Student Life: Anurag Menjivar DO Protein [Mass/volume] in Ser um or PlasmaOrdered By: King Weinberg on 08-28-2024 Protein [Mass/Vol] Protein [Mass/volume ] in Serum or Plasma 6.4-8.9 [facility] Prothrombin Time INRon 08-28 INR Coag (PPP) [Relative time] 1.4 {INR} Normal [facility] Comment on above: Result Comment: INR Therapeutic Range A) Pre- and Peroperative OAT started two weeks before surgery. NOT HIP SURGERY: 1.5 - 2.5 HIP SURGERY: 2 - 3 B) Primary and secondary prevention of venous THROMBOSIS: 2 - 3 C) Active venous thrombosis, pulmonary embolism and prevention of recurrent venous thrombosis: 2 - 3 D) Prevention of arterial thromboembolism including patients with mechanical heart valves: 3 - 4.5 PERFORMED BY: [place] [address] PATHOLOGIST ENERGY TECHNICIAN RODOLFO BOONE M.D. Performed By: #### I SCRE #### [address] PT Coag (PPP) [Time] 15.3 s High 9.0-12.9 [facility] Comment on above: Result Comment: A he matocrit value greater than 55% may lead to inaccurate results in coagulation testing. Patients having hematocrit values >55% require a special collection tube for coagulation studies. Please contact the laboratory at [phone] for redraw instructions. Performed By: #### I SCRE #### [facility] [address] Prothrombin time (PT)Ordered By: King Weinberg on 08-28-2024 PT Coag (PPP) [Time] Prothrombin time (PT) High 9.0- 12.9 [facility] Comment on above: A hematocrit value g reater than 55% may lead to inaccurate results in coagulation testing. Patients having hematocrit values >55% require a special collection tube for coagulation studies. Please contact the laboratory at [phone] for redraw instructions. RBC Auto (Bld) [#/Vol]Ordere d By: King Weinberg on 08-28-2024 RBC (Bld) [#/Vol] Erythrocytes [#/volu me] in Blood by Automated count 3.60-5.00 [facility] Respiratory (Upper) Panel, P CRon 08-28-2024 Respiratory (Upper) Panel, PCR Adenovirus Not detected Bordetella parapertussis Not detected Chlamydia pneumoniae Not detected Coronavirus 229E Not detected Coronavirus HKU1 Not detected Coronavirus NL63 Not detected Coronavirus OC43 Not detected Influenza A Influenza A H3 Detected Influenza B Not detected Human Metapneumovirus Not detected Mycoplasma pneumoniae Not detected Parainfluenza Virus 1 Not detected Parainfluenza Virus 2 Not detected Parainfluenza Virus 3 Not detected Parainfluenza Virus 4 Not detected Bordetella pertussis-ptxP Not detected Human Rhino/Enterovirus Not detected Resp. Syncytial Virus Not detected COVID-19 Detected/Not Detected Not detected Blank Space ---- FLUA TEST INCLUDES Influenza A tests for the following clinically FLUA TEST INCLUDES significant subtypes: FLUA TEST INCLUDES - Influenza A FLUA TEST INCLUDES - Influenza A H1 FLUA TEST INCLUDES - Influenza A H1 2009 FLUA TEST INCLUDES - Influenza A H3 Blank Space ---- RP2 FLU DISCLAIMER Recent administration of nasal influenza vaccines RP2 FLU DISCLAIMER may cause positive FLU results but would not RP2 FLU DISCLAIMER represent infection by those agents. PERFORMED BY: [facility] [address] [place] [address] PATHOLOGIST ENERGY TECHNICIAN RODOLFO BOONE M.D. Normal [facility] Comment on above: Performed By: #### T SH3 wRFLX, CBC, LIPID, CMP #### [facility] [address] [place] [id number] [facility] Respiratory pathogens DNA an d RNA panel - Nasopharynx by ADALGISA with non-probe detectionOrdered By: King Weinberg on 08-28-2024 Respiratory pathogens DNA and RNA panel ADALGISA+non-probe (Nph) Respiratory pathogens DNA and RNA panel - Nasopharynx by ADALGISA with non-probe detection [facility] Respiratory pathogens DNA and RNA panel ADALGISA+non-probe (Nph) Respiratory pathogens DNA and RNA panel - Nasopharynx by ADALGISA with non-probe detection [facility] SARS-CoV-2 + Flu A/Bon 08-28 Influenza A, RT-PCR Detected Abnormal [facility] Comment on above: Performed By: #### B MPX, CDP, MG #### [facility] [address] [place] [address] Director Of Student Life: Anurag Menjivar DO Influenza B, RT-PCR Not detected Normal [facility] Comment on above: Performed By: #### B MPX, CDP, MG #### [facility] [address] [place] [address] Director Of Student Life: Anurag Menjivar DO SARS-CoV-2 (COVID-19) RNA ADALGISA+probe Ql (Unsp spec) Not detected Normal [facility] Comment on above: Result Comment: Testing was performed using SHANICE Gilma SARS-CoV-2 and Influenza A/B nucleic acid assay. This test is a multiplex Real-Time Reverse Transcriptase Polymerase Chain Reaction (RT-PCR)-based in vitro diagnostic test intended for the qualitative detection of nucleic acids from SARS-CoV-2, influenza A, and influenza B in nasopharyngeal and nasal swab specimens. Not Detected results do not preclude SARS-CoV-2 infection and should not be used as the sole basis for patient management decisions. Negative results must be combined with clinical observations, patient history, and epidemiological information. Performed By: #### B MPX, CDP, MG #### [facility] [address] [facility] [place] [address] Director Of Student Life: Anurag Menjivar DO Source .NASOPHARYNGEAL SWAB Normal [facility] Comment on above: Performed By: #### B MPX, CDP, MG #### [facility] [address] [facility] [place] [address] Director Of Student Life: Anurag Menjivar DO Serum or plasma albumin/glob ulin mass ratioOrdered By: King Weinberg on 08-28-2024 Albumin/Globulin [Mass ratio] Serum or plasma albumin/globulin mass ratio [facility] Serum or plasma anion gap de terminationOrdered By: King Weinberg on 08-28-2024 Anion gap [Moles/Vol] Serum or plasma an ion gap determination 6.0-15.0 [facility] Serum or plasma non-glucuron idated bilirubin measurement (mass/volume)Ordered By: King Weinberg on 08-28-2024 Bilirubin.indirect [Mass/Vol] Serum or plasma non-glucuronidated bilirubin measurement (mass/volume) [facility] Sodium [Moles/volume] in Ser um or PlasmaOrdered By: King Weinberg on 08-28-2024 Sodium [Moles/Vol] Sodium [Moles/volume ] in Serum or Plasma Low 136-145 [facility] Troponinon 08-28-2024 Interpretation and review of laboratory results Abnormal [facility] Troponin I.cardiac High sensitivity method [Mass/Vol] 25 ng/L High 0 - 14 ng/L [facility] Comment on above: High Sensitivity Tro ponin values cannot be compared with other Troponin methodologies. [facility] Troponin, High Sens 25 ng/L High 0-14 [facility] Comment on above: Result Comment: High Sensitivity Troponin values cannot be compared with other Troponin methodologies. Performed By: #### B MPX, CDP, MG #### [facility] [address] [place] [address] Director Of Student Life: Anurag Menjivar DO Troponin I.cardiac High sensitivity method [Mass/Vol] 22 ng/L High 0 - 14 ng/L [facility] Comment on above: High Sensitivity Tro ponin values cannot be compared with other Troponin methodologies. Troponin, High Sens 22 ng/L High 0-14 [facility] Comment on above: Result Comment: High Sensitivity Troponin values cannot be compared with other Troponin methodologies. Performed By: #### B MPX, CDP, MG #### [facility] [address] [place] [address] Director Of Student Life: Anurag Menjivar DO Troponin, High Sens 9 ng/L Normal 0-14 [facility] Comment on above: Result Comment: High Sensitivity Troponin values cannot be compared with other Troponin methodologies. Performed By: #### U RC #### [facility] [address] [place] [address] Director Of Student Life: Anurag Menjivar DO [address] [id number] Director Of Student Life: Ashish Goetz MD Troponin I High Sensitivityo n 08-28-2024 Troponin I High Sensitivity 12 Normal 0-15 [facility] Comment on above: Result Comment: The Troponin units of report have been changed to meet the Chest Pain Accreditation requirement, element EC5.M1l2. Troponin units are changed from pg/ml to ng/L. Also, the decimal is removed and results are in whole numbers. PERFORMED BY: [address] [address] PATHOLOGIST ENERGY TECHNICIAN RODOLFO BOONE M.D. Performed By: #### I SCRE #### [facility] [address] Troponin I.cardiac [Mass/vol ume] in Serum or Plasma by Detection limit <= 0.01 ng/Ordered By: King Weinberg on 08-28-2024 Troponin I.cardiac DL <= 0.01 ng/mL [Mass/Vol] Troponin I.cardiac [Mass/volume] in Serum or Plasma by Detection limit <= 0.01 ng/ 0-15 [facility] Comment on above: The Troponin units o f report have been changed to meet the Chest Pain Accreditation requirement, element EC5.M1l2. Troponin units are changed from pg/ml to ng/L. Also, the decimal is removed and results are in whole numbers. Troponin Now and Q 1 Houron 08-28-2024 Troponin I.cardiac High sensitivity method [Mass/Vol] 9 ng/L 0 - 14 ng/L [facility] Comment on above: High Sensitivity Tro ponin values cannot be compared with other Troponin methodologies. Urea nitrogen [Mass/volume] in Serum or PlasmaOrdered By: King Weinberg on 08-28-2024 Urea nitrogen [Mass/Vol] Urea nitrogen [Mass/volume] in Serum or Plasma 02-08 [facility] Urinalysis w/ Microon 2024 Bacteria None Normal NONE [facility] Comment on above: Performed By: #### U AMIC #### [facility] [address] [place], [place] [id number] Director Of Student Life: Anurag Menjivar DO Casts 6 TO 9 Abnormal NONE [facility] Comment on above: Performed By: #### U AMIC #### [facility] [address] [place] [address] Director Of Student Life: Anurag Menjivar DO Epithelial cells LM Ql (Urine sed) 3 to 5 Normal [facility] Comment on above: Performed By: #### U AMIC #### [facility] [address] [place] [address] Director Of Student Life: Anurag Menjivar DO Urine RBC's 0 TO 2 Normal R02 [facility] Comment on above: Performed By: #### U AMIC #### [facility] [address] [facility] [place] [address] Director Of Student Life: Anurag Menjivar DO Urine WBC's 3 to 5 Abnormal R05 [facility] Comment on above: Performed By: #### U AMIC #### [facility] [address] [place] [address] Director Of Student Life: Anurag Menjivar DO Bilirubin, SemiQt,Ur Negative Normal NEG [facility] Comment on above: Performed By: #### U AMIC #### [facility] [address] [place] [address] Director Of Student Life: Anurag Menjivar DO Blood, Urine Negative Normal NEG [facility] Comment on above: Performed By: #### U AMIC #### [facility] [address] [place] [address] Director Of Student Life: Anurag Menjivar DO Clarity (U) Clear Normal CLEAR [facility] Comment on above: Performed By: #### U AMIC #### [facility] [address] [place] [address] Director Of Student Life: Anurag Menjivar DO Color (U) Yellow Normal YEL [facility] Comment on above: Performed By: #### U AMIC #### [facility] [address] [facility] [address] Director Of Student Life: Anurag Menjivar DO Glucose Ql (U) Negative Normal NEG [facility] Comment on above: Performed By: #### U AMIC #### [facility] [address] [place] [address] Director Of Student Life: Anurag Menjivar DO Ketones Ql (U) Negative Normal NEG [facility] Comment on above: Performed By: #### U AMIC #### [facility] [place] [address] Director Of Student Life: Anurag Menjivar DO Leukocyte esterase Test strip Ql (U) TRACE Abnormal NEG [facility] Comment on above: Performed By: #### U AMIC #### [facility] [address] [place] [address] Director Of Student Life: Anurag Menjivar DO Nitrite,Ur Negative Normal NEG [facility] Comment on above: Performed By: #### U AMIC #### [facility] [address] [place] [address] Director Of Student Life: Anurag Menjivar DO PH,Ur 7.0 Normal 5.0-8.0 [facility] Comment on above: Performed By: #### U AMIC #### [facility] [address] [place] [address] Director Of Student Life: Anurag Menjivar DO Protein Ql (U) 2+ mg/dL Abnormal NEG [facility] Comment on above: Performed By: #### U AMIC #### [facility] [address] [place] [address] Director Of Student Life: Anurag Menjivar DO Spec. [place],Ur 1.016 Normal 1.000-1.03 0 [facility] Comment on above: Performed By: #### U AMIC #### [facility] [address] [place] [address] Director Of Student Life: Anurag Menjivar DO Urobilinogen,Ur Normal Normal 0.0-1.0 [facility] Comment on above: Performed By: #### U AMIC #### [facility] [address] [place] [address] Director Of Student Life: Anurag Menjivar, Urinalysis with Microscopico n 08-28-2024 Bacteria LM Ql (Urine sed) None None [facility] Bilirubin Ql (U) Negative NEGATIVE [facility] Casts LM.LPF (Urine sed) [#/Area] 6 TO 9 Abnormal None /LPF [facility] Clarity (U) Clear Clear [facility] Color (U) Yellow Yellow [facility] Epithelial cells LM.HPF (Urine sed) [#/Area] 3 to 5 /HPF [facility] Glucose Test strip (U) [Mass/Vol] Negative NEGATIVE mg/dL [facility] Hemoglobin Auto test strip Ql (U) Negative NEGATIVE [facility] Interpretation and review of laboratory results Abnormal [facility] Ketones (U) [Mass/Vol] Negative NEGAT CARLOS mg/dL [facility] Leukocyte esterase Test strip Ql (U) TRACE Abnormal NEGATIVE [facility] Nitrite Ql (U) Negative NEGATIVE [facility] pH (U) 7.0 [pH] 5.0 - 8.0 [facility] Protein (U) [Mass/Vol] 2+ Abnormal NEGAT CARLOS mg/dL [facility] RBC LM.HPF (Urine sed) [#/Area] 0 TO 2 0 TO 2 /HPF [facility] Specific gravity (U) [Rel density] 1.016 1.000 - 1.030 [facility] Urobilinogen Qn (U) Normal 0.0 - 1. 0 EU/dL [facility] WBC LM.HPF (Urine sed) [#/Area] 3 to 5 Abnormal 0 TO 5 /HPF [facility] WBC Auto (Bld) [#/Vol]Ordere d By: King Weinberg on 08-28-2024 WBC (Bld) [#/Vol] Leukocytes [#/volume ] in Blood by Automated count High 3.8-11.6 [facility] X-ray reportOrdered By: Dedrick Mondragon on 08-28-2024 Study report [facility] Main [place] [id number] XRay Report Signed Patient: Kym Briscoe MR#: [id number] : 1955 Acct:[id number] Age/Sex: 68 / F ADM Date: 5 Loc: ER Room: Type: PRE ER Attending Dr: Copies to: King Weinberg DO~ Ordering Provider: King Weinberg DO Date of Service: 08/28/24 XR/XR chest 1V portable: CHEST PAIN SINGLE VIEW CHEST CLINICAL HISTORY: Productive cough with shortness of breath. COMPARISON: Chest 05/10/2024 FINDINGS: Heart normal in size. COPD with chronic interstitial changes similar to the prior study. No new consolidation pneumothorax pleural effusion or free air. XR/XR chest 1V portable IMPRESSION: COPD CHANGES. NO CONSOLIDATION TO SUGGEST PNEUMONIA. Impression dictated by: Bassam Mondragon Jr., D.OIliana08/28/2024 9:49 AM Dictation Location: [place] [address] Transcribed By: [facility] 08/28/24 0949 Dictated By: Bassam Mondragon Jr, DO 08/28/24 0948 Signed By: 08/28/24 0949 [facility] XR CHEST PORTABLEon 08-28-19 XR CHEST PORTABLE EXAMINATION: ONE XRAY VIEW OF THE CHEST 08/28/2024 12:53 pm COMPARISON: None. HISTORY: ORDERING SYSTEM PROVIDED HISTORY: cough TECHNOLOGIST PROVIDED HISTORY: cough Reason for Exam: Cough/pt recent diagnosis of pneumonia FINDINGS: There is apparent scarring in the right upper lobe. Mild infiltrates are noted in the the lower lobes lungs otherwise clear. The heart and mediastinal structures appear normal. Bony structures appear normal. IMPRESSION: 1. Mild infiltrates in the lower lobes. 2. Apparent scarring in the right upper lobe. Interpreted by: Lev Markham MD Signed by: Lev Markham MD 08/28/24 Final result Normal [facility] XR chest 1V portableon 08-28 XR chest 1V portable [facility] Main [place] [address] [place] [id number] XRay Report Signed Patient: Kym Briscoe MR#: [id number] 42 : 1955 Acct:[id number] Age/Sex: 68 / F ADM Date: 08/28/24 Loc: ER Room: Type: PRE ER Attending Dr: Copies to: King Weinberg DO Ordering Provider: King Weinberg DO Date of Service: 08/28/24 XR/XR chest 1V portable: CHEST PAIN SINGLE VIEW CHEST CLINICAL HISTORY: Productive cough with shortness of breath. COMPARISON: Chest 05/10/2024 FINDINGS: Heart normal in size. COPD with chronic interstitial changes similar to the prior study. No new consolidation pneumothorax pleural effusion or free air. XR/XR chest 1V portable IMPRESSION: COPD CHANGES. NO CONSOLIDATION TO SUGGEST PNEUMONIA. Impression dictated by: Bassam Mondragon Jr., D.OIliana08/28/2024 9:49 AM Dictation Location: [place] [address] Transcribed By: [facility] 08/28/24 0949 Dictated By: Bassam Mondragon Jr, DO 08/28/24 0948 Signed By: 08/28/24 0949 Normal [facility] CT abdomen pelvis w conon CT abdomen pelvis w con [facility] [place] [address] CT Scan Report Signed Patient: Kym Briscoe MR#: [id number] 42 : 1955 Acct:[id number] Age/Sex: 68 / F ADM Date: 07/19/24 Loc: XT Room: Type: REG RCR Attending Dr: Tomi Sandra II DO Copies to: Tomi Sandra II, DO Ordering Provider: Tomi Sandra II, DO Date of Service: 07/19/24 CT/CT chest w con: LUNG NODULE ([id number]) CT/CT abdomen pelvis w con: LUNG NODULE CT chest w con, CT abdomen pelvis w con 07/19/2024 10:09 PM SIGN AND SYMPTOMS: Lung nodule, follow-up CONTRAST: 90 mL of intravenous Isovue-300 TECHNIQUE: Multidetector CT axial slices of the chest, abdomen and pelvis were obtainedwith IV contrast. Multiplanar reformats were performed and viewed on a separate workstation and reviewed to further define anatomy and possible pathology. CT was performed with one or more of the following dose reduction techniques: Automated exposure control, adjustment of the mA and/or kV according to patient size, or use of iterative reconstruction technique. COMPARISON: 03/02/2024 and 03/23/2024. FINDINGS: Lower neck: Thyroid gland within normal limits, no supraclavicle adenopathy. Vessels: Atherosclerotic changes are noted in the aortic arch, origins of the great vessels, and within the coronary arteries. There is no evidence of pulmonary embolism. Mediastinum and [place]: Within normal limits. Heart: Normal size. There is a small simple appearing pericardial effusion which is unchanged.. Airways: Within normal limits Lungs: Noncalcified nodules are redemonstrated in the upper lobes measuring up to 6 mm in greatest dimension on the right in the apex and 4 mm in greatest dimension on the left. Diffuse emphysematous changes are present. There is also a larger 14 mm nodule with spiculated margins posterior to the left hilum. Pleura: Within normal limits. Chest Wall: Within normal limits. Abdomen: Liver: There is a 6 mm focus of hypoattenuation in the right hepatic lobe presumably representing a small cyst or hemangioma. Bile Ducts: Normal caliber. Gallbladder: No calcified gallstones. Normal caliber wall. Pancreas: within normal limits. Spleen: within normal limits. Adrenals: within normal limits. Kidneys: Simple cysts are noted in the left renal cortex requiring no further follow-up. Pelvis: Reproductive Organs: No pelvic masses. Ureters: within normal limits. Bladder: within normal limits. Bowel: There are uncomplicated colonic diverticula. There is no evidence of bowel obstruction. Mesenteric Lymph Nodes: Mildly prominent portacaval lymph nodes are redemonstrated. These were previously FDG avid and may represent metastatic disease. Peritoneum: No ascites or free air, no fluid collection. Vessels: Atherosclerotic changes are noted in the abdominal aorta and its branches.. Retroperitoneum: within normal limits. Abdominal Wall: within normal limits. Bones: Degenerative changes are noted in the thoracolumbar spine CT/CT chest w con IMPRESSION: More prominent pulmonary nodules are noted with the largest now measuring 14 mm in greatest dimension posterior and inferior to the left hilum in the left lower lobe. This was previously FDG avid and is suspicious for malignancy. Mildly prominent portacaval lymph nodes are redemonstrated. These were previously FDG avid and suspicious for malignancy. No mass or abnormal enhancement is noted otherwise. Diffuse emphysematous changes are noted in the lung parenchyma. Uncomplicated colonic diverticulosis is noted. There is a 6 mm focus of hypoattenuation in the right hepatic lobe presumably representing a small cyst or hemangioma. Impression dictated by: Alexei Cedeno M.D.07/20/2024 12:46 AM Dictation Location: [place] [address] Transcribed By: [facility] 07/20/24 0046 Dictated By: Alexei Cedeno II, MD 07/20/24 0023 Signed By: 07/20/24 0046 Normal [facility] Alanine aminotransferase [En zymatic activity/volume] in Serum or PlasmaOrdered By: Tomi Sandra on 07-19-2024 ALT [Catalytic activity/Vol] Alanine aminotransferase [Enzymatic activity/volume] in Serum or Plasma 7-52 [facility] Albumin [Mass/volume] in Ser um or Plasma by Bromocresol green (BCG) dye binding methoOrdered By: Tomi Sandra on 07-19-2024 Albumin BCG dye [Mass/Vol] Albumin [Mass/volume] in Serum or Plasma by Bromocresol green (BCG) dye binding metho 3.5-5.7 [facility] Alkaline phosphatase [Enzyma tic activity/volume] in Serum or PlasmaOrdered By: Tomi Sandra on 07-19-2024 ALP [Catalytic activity/Vol] Alkaline phosphatase [Enzymatic activity/volume] in Serum or Plasma 34-104 [facility] Aspartate aminotransferase [ Enzymatic activity/volume] in Serum or PlasmaOrdered By: Tomi Sandra on 07-19-2024 AST [Catalytic activity/Vol] Aspartate aminotransferase [Enzymatic activity/volume] in Serum or Plasma 13-39 [facility] Basophils Auto (Bld) [#/Vol] Ordered By: Tomi Sandra on 07-19-2024 Basophils (Bld) [#/Vol] Automated basophil count 0.0-0.2 [facility] Basophils/100 WBC Auto (Bld) Ordered By: Tomi Sandra on 07-19-2024 Basophils/100 WBC (Bld) Automated basophil % . [facility] Bilirubin.total [Mass/volume ] in Serum or PlasmaOrdered By: Tomi Sandra on 07-19-2024 Bilirubin [Mass/Vol] Bilirubin.total [Mass/volume] in Serum or Plasma 0.3-1.0 [facility] CARCINOEMBRYONIC ANTIGENon 0 07-19-2024 Interpretation and review of laboratory results Abnormal [facility] CBC W Auto Differential pane l (Bld)on 07-19-2024 Basophils (Bld) [#/Vol] 0 10*3/uL 0.0 - 0.2 10*3/uL [facility] Basophils/100 WBC Manual cnt (Syn fld) 0.5 % . [facility] Eosinophils (Bld) [#/Vol] 0 10*3/uL 0.0 - 0.45 10*3/uL [facility] Eosinophils/100 WBC Manual cnt (Syn fld) 0 % . [facility] Erythrocyte distribution width (RBC) [Ratio] 14.8 % 11.9 - 15.3 % [facility] Hematocrit (Bld) [Volume fraction] 40.4 % 34.0 - 46.4 % [facility] Hemoglobin (Bld) [Mass/Vol] 13.3 g/dL 11.8 - 15.4 g/dL [facility] Lymphocytes (Bld) [#/Vol] 1.1 10*3/uL 1.00 - 4.8 10*3/uL [facility] Lymphocytes/100 WBC Manual cnt (Syn fld) 15.4 % . [facility] MCH (RBC) [Entitic mass] 29.4 pg 24.7 - 34.3 pg [facility] MCHC (RBC) [Mass/Vol] 33 g/dL 32.0 - 35.0 g/dL [facility] MCV (RBC) [Entitic vol] 89 fL 80 - 100 fL [facility] Monocytes (Bld) [#/Vol] 0.1 10*3/uL 0.0 - 0.8 10*3/uL [facility] Monocytes+Macrophages/ 100 WBC Manual cnt (Syn fld) 0.9 % . [facility] Neutrophils (Bld) [#/Vol] 6.2 10*3/uL 1.8 - 7.7 10*3/uL [facility] Neutrophils/100 WBC Manual cnt (Syn fld) 83.2 % . [facility] NRBC 0.1 /100{WBC} 0 - 0.5 /100{WBC} [facility] Platelet mean volume (Bld) [Entitic vol] 9.6 fL 6.3 - 10.7 fL [facility] Platelets (Bld) [#/Vol] 270 10*3/uL 150 - 450 10*3/uL [facility] RBC LM.HPF (Urine sed) [#/Area] 4.54 10*6/uL 3.60 - 5.00 10*6/uL [facility] WBC (Bld) [#/Vol] 7.4 10*3/uL 3.8 - 11.6 10*3/uL [facility] WBC LM.HPF (Urine sed) [#/Area] 7.4 10*3/uL 3.8 - 11.6 10*3/uL [facility] CEA ser/plasOrdered By: Gerson Sandra on 07-19-2024 Carcinoembryonic Ag [Mass/Vol] Serum or plasma carcinoembryonic antigen measurement (mass/volume) High 0.0-3.0 [facility] Comment on above: Serial tumor marker results determined by assays using different manufacturers or methods may not be comparable.[facility] pasteuriser operator and method:LUCY UNICEL DXI, 2 SITE IMMUNOENZYMATIC SANDWICH ASSAY. Calcium [Mass/volume] in Ser um or PlasmaOrdered By: Tomi Sandra on 07-19-2024 Calcium [Mass/Vol] Calcium [Mass/volume ] in Serum or Plasma 8.6-10.3 [facility] Carbohydrate Antigen 19-9on 07-19-2024 Carbohydrate Antigen 19-9 <2 Normal 0-35 [facility] Comment on above: Result Comment: Iotum Electrochemiluminescence Immunoassay (ECLIA) Values obtained with different assay methods or kits cannot be used interchangeably. Results cannot be interpreted as absolute evidence of the presence or absence of malignant disease. Performed at: [facility] [employer] [id number] Director Of Student Life: Bo Wright PhD, Phone: [phone] PERFORMED BY: [address] [place] [address] PATHOLOGIST ENERGY TECHNICIAN RODOLFO BOONE M.D. Performed By: #### T SH3 wRFLX, CBC, LIPID, CMP #### [facility] [address] Carbon dioxide, total [Moles /volume] in Serum or PlasmaOrdered By: Tomi Sandra on 07-19-2024 CO2 [Moles/Vol] Carbon dioxide, tota l [Moles/volume] in Serum or Plasma 21.0-31.0 [facility] Chloride [Moles/volume] in S tiffanie or PlasmaOrdered By: Tomi Sandra on 07-19-2024 Chloride [Moles/Vol] Chloride [Moles/vol ume] in Serum or Plasma 98-107 [facility] Complete Blood Count Auto Di ffon 07-19-2024 Basophils (Bld) [#/Vol] 0.0 10*3/uL Normal 0.0-0.2 [facility] Comment on above: Result Comment: PERF ORMED BY: [place] [address] PATHOLOGIST ENERGY TECHNICIAN RODOLFO BOONE M.D. Performed By: #### T SH3 wRFLX, CBC, LIPID, CMP #### [address] Basophils/100 WBC (Bld) 0.5 % Normal . [facility] Comment on above: Performed By: #### T SH3 wRFLX, CBC, LIPID, CMP #### [place] [address] [place] Eosinophils (Bld) [#/Vol] 0.0 10*3/uL Normal 0.0-0.45 [facility] Comment on above: Performed By: #### T SH3 wRFLX, CBC, LIPID, CMP #### [place] [address] [place] Eosinophils/100 WBC (Bld) 0.0 % Normal . [facility] Comment on above: Performed By: #### T SH3 wRFLX, CBC, LIPID, CMP #### [address] Erythrocyte distribution width (RBC) [Ratio] 14.8 % Normal 11.9-15.3 [facility] Comment on above: Performed By: #### T SH3 wRFLX, CBC, LIPID, CMP #### [address] Hematocrit (Bld) [Volume fraction] 40.4 % Normal 34.0-46.4 [facility] Comment on above: Performed By: #### T SH3 wRFLX, CBC, LIPID, CMP #### [address] Hemoglobin (Bld) [Mass/Vol] 13.3 g/dL Normal 11.8-15.4 [facility] Comment on above: Performed By: #### T SH3 wRFLX, CBC, LIPID, CMP #### [address] Lymphocytes (Bld) [#/Vol] 1.1 10*3/uL Normal 1.00-4.8 [facility] Comment on above: Performed By: #### T SH3 wRFLX, CBC, LIPID, CMP #### [address] Lymphocytes/100 WBC (Bld) 15.4 % Normal . [facility] Comment on above: Performed By: #### T SH3 wRFLX, CBC, LIPID, CMP #### [address] MCH (RBC) [Entitic mass] 29.4 pg Normal 24.7-34.3 [facility] Comment on above: Performed By: #### T SH3 wRFLX, CBC, LIPID, CMP #### [address] MCV (RBC) [Entitic vol] 89.0 fL Normal 80-100 [facility] Comment on above: Performed By: #### T SH3 wRFLX, CBC, LIPID, CMP #### [address] Mean Corpuscular HGB Conc 33.0 g/dL Normal 32.0-35.0 [facility] Comment on above: Performed By: #### T SH3 wRFLX, CBC, LIPID, CMP #### [address] Monocytes (Bld) [#/Vol] 0.1 10*3/uL Normal 0.0-0.8 [facility] Comment on above: Performed By: #### T SH3 wRFLX, CBC, LIPID, CMP #### [address] Monocytes/100 WBC (Bld) 0.9 % Normal . [facility] Comment on above: Performed By: #### T SH3 wRFLX, CBC, LIPID, CMP #### [address] Neutrophils (Bld) [#/Vol] 6.2 10*3/uL Normal 1.8-7.7 [facility] Comment on above: Performed By: #### T SH3 wRFLX, CBC, LIPID, CMP #### [address] Neutrophils/100 WBC (Bld) 83.2 % Normal . [facility] Comment on above: Performed By: #### T SH3 wRFLX, CBC, LIPID, CMP #### [address] NRBC% 0.1 /100{WBC} Normal 0-0.5 [facility] Comment on above: Performed By: #### T SH3 wRFLX, CBC, LIPID, CMP #### [address] Platelet mean volume (Bld) [Entitic vol] 9.6 fL Normal 6.3-10.7 [facility] Comment on above: Performed By: #### T SH3 wRFLX, CBC, LIPID, CMP #### [address] Platelets (Bld) [#/Vol] 270 10*3/uL Normal 150-450 [facility] Comment on above: Performed By: #### T SH3 wRFLX, CBC, LIPID, CMP #### [address] RBC (Bld) [#/Vol] 4.54 10*6/uL Normal 3.60-5.00 [facility] Comment on above: Performed By: #### T SH3 wRFLX, CBC, LIPID, CMP #### [address] WBC (Bld) [#/Vol] 7.4 10*3/uL Normal 3.8-11.6 [facility] Comment on above: Performed By: #### T SH3 wRFLX, CBC, LIPID, CMP #### [address] Comprehensive Metabolic Pane margarita 07-19-2024 Albumin [Mass/Vol] 4.5 g/dL Normal 3.5-5.7 [facility] Comment on above: Performed By: #### T SH3 wRFLX, CBC, LIPID, CMP #### [address] Albumin/Globulin [Mass ratio] 1.3 {ratio} Normal [facility] Comment on above: Performed By: #### T SH3 wRFLX, CBC, LIPID, CMP #### [address] ALP [Catalytic activity/Vol] 94 U/L Normal 34-104 [facility] Comment on above: Result Comment: PERF ORMED BY: [place] [address] PATHOLOGIST ENERGY TECHNICIAN RODOLFO BOONE M.D. Performed By: #### T SH3 wRFLX, CBC, LIPID, CMP #### [address] ALT [Catalytic activity/Vol] 13 U/L Normal 7-52 [facility] Comment on above: Performed By: #### T SH3 wRFLX, CBC, LIPID, CMP #### [address] Anion gap [Moles/Vol] 11.1 mmol/L Normal 6.0-15.0 [facility] e [facility] Comment on above: Performed By: #### T SH3 wRFLX, CBC, LIPID, CMP #### [facility] [address] [place] [address] AST [Catalytic activity/Vol] 21 U/L Normal 13-39 [facility] Comment on above: Performed By: #### T SH3 wRFLX, CBC, LIPID, CMP #### [facility] [address] [place] [address] Bilirubin [Mass/Vol] 0.6 mg/dL Normal 0.3-1.0 [facility] Comment on above: Performed By: #### T SH3 wRFLX, CBC, LIPID, CMP #### [address] Calcium [Mass/Vol] 9.5 mg/dL Normal 8.6-10.3 [facility] Comment on above: Performed By: #### T SH3 wRFLX, CBC, LIPID, CMP #### [address] Chloride [Moles/Vol] 104 mmol/L Normal 98-107 [facility] Comment on above: Performed By: #### T SH3 wRFLX, CBC, LIPID, CMP #### [address] CO2 [Moles/Vol] 24.1 mmol/L Normal 21.0-31.0 [facility] Comment on above: Performed By: #### T SH3 wRFLX, CBC, LIPID, CMP #### [facility] [address] [place] [address] [place] Creatinine [Mass/Vol] 0.66 mg/dL Normal 0.60-1.20 [facility] Comment on above: Performed By: #### T SH3 wRFLX, CBC, LIPID, CMP #### [facility] [address] [place] [address] [place] GFR/1.73 sq M.predicted MDRD (S/P/Bld) [Vol rate/Area] mL/min/{1.73_m2} Normal [facility] Comment on above: Performed By: #### T SH3 wRFLX, CBC, LIPID, CMP #### [facility] [address] [place] [address] [place] Globulin (S) [Mass/Vol] 3.5 g/dL Normal [facility] Comment on above: Performed By: #### T SH3 wRFLX, CBC, LIPID, CMP #### [facility] [address] [place] [address] [place] Glucose [Mass/Vol] 176 mg/dL High 70-100 [facility] Comment on above: Result Comment: [facility] Glucose Reference Range is dependent on time and content of last meal. Glucose of more than 200 mg/dL in a nonstressed, ambulatory subject supports the diagnosis of Diabetes Mellitus. ADA recommended reference range Performed By: #### T SH3 wRFLX, CBC, LIPID, CMP #### [facility] [address] Potassium [Moles/Vol] 4.2 mmol/L Normal 3.5-5.1 [facility] Comment on above: Performed By: #### T SH3 wRFLX, CBC, LIPID, CMP #### [facility] [address] Protein [Mass/Vol] 8.0 g/dL Normal 6.4-8.9 [facility] Comment on above: Performed By: #### T SH3 wRFLX, CBC, LIPID, CMP #### [facility] [address] [place] [address] [place] Sodium [Moles/Vol] 135 mmol/L Low 136-145 [facility] Comment on above: Performed By: #### T SH3 wRFLX, CBC, LIPID, CMP #### [facility] [address] [place] [address] [place] Urea nitrogen [Mass/Vol] 8 mg/dL Normal 7-25 [facility] Comment on above: Performed By: #### T SH3 wRFLX, CBC, LIPID, CMP #### [facility] [address] Comprehensive metabolic pane margarita 07-19-2024 Albumin [Mass/Vol] 4.5 g/dL 3.5 - 5.7 g/dL [facility] Albumin/Globulin [Mass ratio] 1.3 {ratio} [facility] ALP [Catalytic activity/Vol] 94 U/L 34 - 104 U/L [facility] ALT [Catalytic activity/Vol] 13 U/L 7 - 52 U/L [facility] Anion gap [Moles/Vol] 11.1 mmol/L 6.0 - 15.0 meq/L [facility] AST [Catalytic activity/Vol] 21 U/L 13 - 39 U/L [facility] Bilirubin [Mass/Vol] 0.6 mg/dL 0.3 - 1 .0 mg/dL [facility] Calcium [Mass/Vol] 9.5 mg/dL 8.6 - 10. 3 mg/dL [facility] Chloride [Moles/Vol] 104 mmol/L 98 - 10 7 mmol/L [facility] CO2 [Moles/Vol] 24.1 mmol/L 21.0 - 31.0 mmol/L [facility] Creatinine (U) [Mass/Vol] 0.66 mg/dL 0.60 - 1.20 mg/dL [facility] ESTIMATED GFR mL/Min [facility] Globulin (S) [Mass/Vol] 3.5 g/dL [facility] Glucose [Mass/Vol] 176 mg/dL High 70 - 100 mg/dL [facility] Comment on above: Random Glucose Refer ence Range is dependent on time and content of last meal. Glucose of more than 200 mg/dL in a nonstressed, ambulatory subject supports the diagnosis of Diabetes Mellitus. ADA recommended reference range Interpretation and review of laboratory results Abnormal [facility] Potassium [Moles/Vol] 4.2 mmol/L 3.5 - 5.1 mmol/L [facility] Protein [Mass/Vol] 8 g/dL 6.4 - 8.9 g/dL [facility] Sodium [Moles/Vol] 135 mmol/L Low 136 - 145 mmol/L [facility] Urea nitrogen [Mass/Vol] 8 mg/dL 7 - 25 mg/dL [facility] Creatinine [Mass/volume] in Serum or PlasmaOrdered By: Tomi Sandra on 07-19-2024 Creatinine [Mass/Vol] Creatinine [Mass/v olume] in Serum or Plasma 0.60-1.20 [facility] Eosinophils Auto (Bld) [#/Vo l]Ordered By: Tomi Sandra on 07-19-2024 Eosinophils (Bld) [#/Vol] Automated eosinophil count 0.0-0.45 [facility] Eosinophils/100 WBC Auto (Bl d)Ordered By: Tomi Sandra on 07-19-2024 Eosinophils/100 WBC (Bld) Automated eosinophil % . [facility] Erythrocyte distribution wid th Auto (RBC) [Ratio]Ordered By: Tomi Sandra on 07-19-2024 Erythrocyte distribution width (RBC) [Ratio] Erythrocyte distribution width [Ratio] by Automated count 11.9-15.3 [facility] Globulin Calc (S) [Mass/Vol] Ordered By: Tomi Sandra on 07-19-2024 Globulin (S) [Mass/Vol] Serum globulin measurement by calculation (mass/volume) [facility] Glucose [Mass/volume] in Ser um or PlasmaOrdered By: Tomi Sandra on 07-19-2024 Glucose [Mass/Vol] Glucose [Mass/volume ] in Serum or Plasma High 70-100 [facility] Comment on above: ADA recommended refe rence rangeRandom Glucose Reference Range is dependent on time and content of last meal. Glucose of more than 200 mg/dL in a nonstressed, ambulatory subject supports the diagnosis of Diabetes Mellitus. Hematocrit Auto (Bld) [Volum e fraction]Ordered By: Tomi Sandra on 07-19-2024 Hematocrit (Bld) [Volume fraction] Hematocrit [Volume Fraction] of Blood by Automated count 34.0-46.4 [facility] Hemoglobin [Mass/volume] in BloodOrdered By: Tomi Sandra on 07-19-2024 Hemoglobin (Bld) [Mass/Vol] Hemoglobin [Mass/volume] in Blood 11.8-15.4 [facility] Leukocytes [#/volume] correc gilma for nucleated erythrocytes in Blood by Automated counOrdered By: Tomi Sandra on 07-19-2024 WBC corrected for nucl RBC Auto (Bld) [#/Vol] Leukocytes [#/volume] corrected for nucleated erythrocytes in Blood by Automated coun 3.8-11.6 [facility] Lymphocytes Auto (Bld) [#/Vo l]Ordered By: Tomi Sandra on 07-19-2024 Lymphocytes (Bld) [#/Vol] Lymphocytes [#/volume] in Blood by Automated count 1.00-4.8 [facility] Lymphocytes/100 WBC Auto (Bl d)Ordered By: Tomi Sandra on 07-19-2024 Lymphocytes/100 WBC (Bld) Lymphocytes/100 leukocytes in Blood by Automated count . [facility] MCH Auto (RBC) [Entitic mass ]Ordered By: Tomi Sandra on 07-19-2024 MCH (RBC) [Entitic mass] MCH [Entitic mass] by Automated count 24.7-34.3 [facility] MCHC Auto (RBC) [Mass/Vol]Or dered By: Tomi Sandra on 07-19-2024 MCHC (RBC) [Mass/Vol] MCHC [Mass/volume] by Automated count 32.0-35.0 [facility] MCV Auto (RBC) [Entitic vol] Ordered By: Tomi Sandra on 07-19-2024 MCV (RBC) [Entitic vol] MCV [Entitic volume] by Automated count 80-100 [facility] Monocytes Auto (Bld) [#/Vol] Ordered By: Tomi Sandra on 07-19-2024 Monocytes (Bld) [#/Vol] Automated blood monocyte count 0.0-0.8 [facility] Monocytes/100 WBC Auto (Bld) Ordered By: Tomi Sandra on 07-19-2024 Monocytes/100 WBC (Bld) Automated monocyte % . [facility] Neutrophils Auto (Bld) [#/Vo l]Ordered By: Tomi Sadnra on 07-19-2024 Neutrophils (Bld) [#/Vol] Neutrophils [#/volume] in Blood by Automated count 1.8-7.7 [facility] Neutrophils/100 WBC Auto (Bl d)Ordered By: Tomi Sandra on 07-19-2024 Neutrophils/100 WBC (Bld) Automated neutrophil % . [facility] No Panel InformationOrdered By: oTmi Sandra on 07-19-2024 Estimated GFR (CKD-EPI) > 60.0 mL/Min [facility] Creatinine Clearance (Chem N/A [facility] Nucleated erythrocytes [Pres ence] in Blood by Automated countOrdered By: Tomi Sandra on 07-19-2024 Nucleated RBC Auto Ql (Bld) Nucleated erythrocytes [Presence] in Blood by Automated count 0-0.5 [facility] Platelet mean volume Auto (B ld) [Entitic vol]Ordered By: Tomi Sandra on 07-19-2024 Platelet mean volume (Bld) [Entitic vol] Platelet mean volume [Entitic volume] in Blood by Automated count 6.3-10.7 [facility] Platelets Auto (Bld) [#/Vol] Ordered By: Tomi Sandra on 07-19-2024 Platelets (Bld) [#/Vol] Platelets [#/volume] in Blood by Automated count 150-450 [facility] Potassium [Moles/volume] in Serum or PlasmaOrdered By: Tomi Sandra on 07-19-2024 Potassium [Moles/Vol] Potassium [Moles/v olume] in Serum or Plasma 3.5-5.1 [facility] Protein [Mass/volume] in Ser um or PlasmaOrdered By: Tomi Sandra on 07-19-2024 Protein [Mass/Vol] Protein [Mass/volume ] in Serum or Plasma 6.4-8.9 [facility] RBC Auto (Bld) [#/Vol]Ordere d By: Tomi Sandra on 07-19-2024 RBC (Bld) [#/Vol] Erythrocytes [#/volu me] in Blood by Automated count 3.60-5.00 [facility] Serum or plasma albumin/glob ulin mass ratioOrdered By: Tomi Sandra on 07-19-2024 Albumin/Globulin [Mass ratio] Serum or plasma albumin/globulin mass ratio [facility] Serum or plasma anion gap de terminationOrdered By: Tomi Sandra on 07-19-2024 Anion gap [Moles/Vol] Serum or plasma an ion gap determination 6.0-15.0 [facility] Serum or plasma cancer antig en 19-9 measurement (units/volume)Ordered By: Tomi Sandra on 07-19-2024 Cancer Ag 19-9 Qn Serum or plasma canc er antigen 19-9 measurement (units/volume) 0-35 [facility] Comment on above: [facility] El ectrochemiluminescence Immunoassay(ECLIA)Values obtained with different assay methods or kits cannotbe used interchangeably. Results cannot be interpreted asabsolute evidence of the presence or absence of malignantdisease.Performed at: - [address] [id number] Director: Bo Wright PhD, Phone: [phone] Sodium [Moles/volume] in Ser um or PlasmaOrdered By: Tomi Sandra on 07-19-2024 Sodium [Moles/Vol] Sodium [Moles/volume ] in Serum or Plasma Low 136-145 [facility] Urea nitrogen [Mass/volume] in Serum or PlasmaOrdered By: Tomi Sandra on 07-19-2024 Urea nitrogen [Mass/Vol] Urea nitrogen [Mass/volume] in Serum or Plasma 7-25 [facility] WBC Auto (Bld) [#/Vol]Ordere d By: Tomi Sandra on 07-19-2024 WBC (Bld) [#/Vol] Leukocytes [#/volume ] in Blood by Automated count 3.8-11.6 [facility] liveron 06-20-2024 liver [facility] [place] [address] Ultrasound Report Signed Patient: Kym Briscoe MR#: [id number] 42 : 1955 Acct:[id number] Age/Sex: 68 / F ADM Date: 06/20/24 Loc: Room: Type: [facility] Attending Dr: Vicky BOLDEN Ordering Provider: YUAN Nava Date of Service: 06/20/24 US/US liver: Elevated liver enzymes Copies to: YUAN Nava LIMITED ABDOMINAL ULTRASOUND - liver CLINICAL HISTORY: Elevated liver enzymes COMPARISON: None The gallbladder is physiologically distended without shadowing calculi, wall thickening or pericholecystic fluid. No intra- or extrahepatic biliary dilatation is evident. The common duct m easures 5 mm. The liver shows slight increased echogenicity with respect to the right kidney and this may be fatty infiltration. A small septated cyst is seen at the right hepatic lobe measuring 10 x 6 x 8 mm. There is appropriate hepatopetal flow within the main portal vein. The pancreas shows no significant sonographic abnormality. Cursory evaluation of the right kidney reveals no hydronephrosis or fluid within Ball's pouch. US/US liver IMPRESSION: SUSPECTED FATTY LIVER WITH A SMALL SEPTATED CYST. NO GALLBLADDER PATHOLOGY. Impression dictated by: Jayla Herr M.D.06/20/2024 12:48 PM Dictation Location: [place] [address] Tech: Dixie Benjamin Transcribed By: CARON 06/20/24 1248 Dictated By: Jayla Herr MD 06/20/24 1245 Signed By: 06/20/24 1248 Normal [facility] Alanine aminotransferase [En zymatic activity/volume] in Serum or PlasmaOrdered By: Vicky Oshea on 06-05-2024 ALT [Catalytic activity/Vol] Alanine aminotransferase [Enzymatic activity/volume] in Serum or Plasma [facility] Albumin [Mass/volume] in Ser um or Plasma by Bromocresol green (BCG) dye binding methoOrdered By: Vicky Oshea on 06-05-2024 Albumin BCG dye [Mass/Vol] Albumin [Mass/volume] in Serum or Plasma by Bromocresol green (BCG) dye binding metho 3.5-5.7 [facility] Alkaline phosphatase [Enzyma tic activity/volume] in Serum or PlasmaOrdered By: Vicky Oshea on 06-05-2024 ALP [Catalytic activity/Vol] Alkaline phosphatase [Enzymatic activity/volume] in Serum or Plasma High 34-104 [facility] Amylaseon 06-05-2024 Amylase [Catalytic activity/Vol] 18 U/L Low 29-103 [facility] Comment on above: Performed By: #### T SH3 wRFLX, CBC, LIPID, CMP #### [address] Amylase [Enzymatic activity/ volume] in Serum or PlasmaOrdered By: Vicky Oshea on 06-05-2024 Amylase [Catalytic activity/Vol] Amylase [Enzymatic activity/volume] in Serum or Plasma Low 29-103 [facility] Aspartate aminotransferase [ Enzymatic activity/volume] in Serum or PlasmaOrdered By: Vicky Oshea on 06-05-2024 AST [Catalytic activity/Vol] Aspartate aminotransferase [Enzymatic activity/volume] in Serum or Plasma High 13-39 [facility] Basophils Auto (Bld) [#/Vol] Ordered By: Vicky Oshea on 06-05-2024 Basophils (Bld) [#/Vol] Automated basophil count 0.0-0.2 [facility] Basophils/100 WBC Auto (Bld) Ordered By: Vicky Oshea on 06-05-2024 Basophils/100 WBC (Bld) Automated basophil % . [facility] Bilirubin.total [Mass/volume ] in Serum or PlasmaOrdered By: Vicky Oshea on 06-05-2024 Bilirubin [Mass/Vol] Bilirubin.total [Mass/volume] in Serum or Plasma 0.3-1.0 [facility] Calcium [Mass/volume] in Ser um or PlasmaOrdered By: Vicky Oshea on 06-05-2024 Calcium [Mass/Vol] Calcium [Mass/volume ] in Serum or Plasma 8.6-10.3 [facility] Carbon dioxide, total [Moles /volume] in Serum or PlasmaOrdered By: Vicky Oshea on 06-05-2024 CO2 [Moles/Vol] Carbon dioxide, tota l [Moles/volume] in Serum or Plasma 21.0-31.0 [facility] Chloride [Moles/volume] in S tiffanie or PlasmaOrdered By: Vicky Oshea on 06-05-2024 Chloride [Moles/Vol] Chloride [Moles/vol ume] in Serum or Plasma 98-107 [facility] Complete Blood Count Auto Di ffon 06-05-2024 Basophils (Bld) [#/Vol] 0.1 10*3/uL Normal 0.0-0.2 [facility] Comment on above: Result Comment: PERF ORMED BY: [facility] [address] [place] [address] PATHOLOGIST ENERGY TECHNICIAN RODOLFO BOONE M.D. Performed By: #### T SH3 wRFLX, CBC, LIPID, CMP #### [address] Basophils/100 WBC (Bld) 0.6 % Normal . [facility] Comment on above: Performed By: #### T SH3 wRFLX, CBC, LIPID, CMP #### [address] Eosinophils (Bld) [#/Vol] 0.0 10*3/uL Normal 0.0-0.45 [facility] Comment on above: Performed By: #### T SH3 wRFLX, CBC, LIPID, CMP #### [address] Eosinophils/100 WBC (Bld) 0.0 % Normal . [facility] Comment on above: Performed By: #### T SH3 wRFLX, CBC, LIPID, CMP #### [address] Erythrocyte distribution width (RBC) [Ratio] 15.2 % Normal 11.9-15.3 [facility] Comment on above: Performed By: #### T SH3 wRFLX, CBC, LIPID, CMP #### [address] Hematocrit (Bld) [Volume fraction] 38.1 % Normal 34.0-46.4 [facility] Comment on above: Performed By: #### T SH3 wRFLX, CBC, LIPID, CMP #### [address] Hemoglobin (Bld) [Mass/Vol] 12.3 g/dL Normal 11.8-15.4 [facility] Comment on above: Performed By: #### T SH3 wRFLX, CBC, LIPID, CMP #### [address] Lymphocytes (Bld) [#/Vol] 0.7 10*3/uL Low 1.00-4.8 [facility] Comment on above: Performed By: #### T SH3 wRFLX, CBC, LIPID, CMP #### [address] Lymphocytes/100 WBC (Bld) 6.1 % Normal . [facility] Comment on above: Performed By: #### T SH3 wRFLX, CBC, LIPID, CMP #### [address] MCH (RBC) [Entitic mass] 29.4 pg Normal 24.7-34.3 [facility] Comment on above: Performed By: #### T SH3 wRFLX, CBC, LIPID, CMP #### [address] MCV (RBC) [Entitic vol] 91.1 fL Normal 80-100 [facility] Comment on above: Performed By: #### T SH3 wRFLX, CBC, LIPID, CMP #### [address] Mean Corpuscular HGB Conc 32.3 g/dL Normal 32.0-35.0 [facility] Comment on above: Performed By: #### T SH3 wRFLX, CBC, LIPID, CMP #### [address] Monocytes (Bld) [#/Vol] 0.4 10*3/uL Normal 0.0-0.8 [facility] Comment on above: Performed By: #### T SH3 wRFLX, CBC, LIPID, CMP #### [place] [address] [place] Monocytes/100 WBC (Bld) 3.2 % Normal . [facility] Comment on above: Performed By: #### T SH3 wRFLX, CBC, LIPID, CMP #### [place] [address] [place] Neutrophils (Bld) [#/Vol] 10.7 10*3/uL High 1.8-7.7 [facility] Comment on above: Performed By: #### T SH3 wRFLX, CBC, LIPID, CMP #### [place] [address] [place] Neutrophils/100 WBC (Bld) 90.1 % Normal . [facility] Comment on above: Performed By: #### T SH3 wRFLX, CBC, LIPID, CMP #### [address] NRBC% 0.0 /100{WBC} Normal 0-0.5 [facility] Comment on above: Performed By: #### T SH3 wRFLX, CBC, LIPID, CMP #### [address] Platelet mean volume (Bld) [Entitic vol] 9.5 fL Normal 6.3-10.7 [facility] Comment on above: Performed By: #### T SH3 wRFLX, CBC, LIPID, CMP #### [address] Platelets (Bld) [#/Vol] 304 10*3/uL Normal 150-450 [facility] Comment on above: Performed By: #### T SH3 wRFLX, CBC, LIPID, CMP #### [address] RBC (Bld) [#/Vol] 4.18 10*6/uL Normal 3.60-5.00 [facility] Comment on above: Performed By: #### T SH3 wRFLX, CBC, LIPID, CMP #### [address] WBC (Bld) [#/Vol] 11.9 10*3/uL High 3.8-11.6 [facility] Comment on above: Performed By: #### T SH3 wRFLX, CBC, LIPID, CMP #### [address] Comprehensive Metabolic Pane margarita 06-05-2024 Albumin [Mass/Vol] 4.1 g/dL Normal 3.5-5.7 [facility] Comment on above: Performed By: #### T SH3 wRFLX, CBC, LIPID, CMP #### [address] Albumin/Globulin [Mass ratio] 1.2 {ratio} Normal [facility] Comment on above: Performed By: #### T SH3 wRFLX, CBC, LIPID, CMP #### [address] ALP [Catalytic activity/Vol] 175 U/L High 34-104 [facility] Comment on above: Performed By: #### T SH3 wRFLX, CBC, LIPID, CMP #### [address] ALT [Catalytic activity/Vol] 22 U/L Normal 7-52 [facility] Comment on above: Performed By: #### T SH3 wRFLX, CBC, LIPID, CMP #### [address] Anion gap [Moles/Vol] 15.5 mmol/L High 6.0-15.0 [facility] Comment on above: Performed By: #### T SH3 wRFLX, CBC, LIPID, CMP #### [address] AST [Catalytic activity/Vol] 40 U/L High 13-39 [facility] Comment on above: Performed By: #### T SH3 wRFLX, CBC, LIPID, CMP #### [address] Bilirubin [Mass/Vol] 0.4 mg/dL Normal 0.3-1.0 [facility] Comment on above: Performed By: #### T SH3 wRFLX, CBC, LIPID, CMP #### [address] Calcium [Mass/Vol] 10.1 mg/dL Normal 8.6-10.3 [facility] Comment on above: Performed By: #### T SH3 wRFLX, CBC, LIPID, CMP #### [address] Chloride [Moles/Vol] 104 mmol/L Normal 98-107 [facility] Comment on above: Performed By: #### T SH3 wRFLX, CBC, LIPID, CMP #### [address] [place] [address] [place] CO2 [Moles/Vol] 23.9 mmol/L Normal 21.0-31.0 [facility] Comment on above: Performed By: #### T SH3 wRFLX, CBC, LIPID, CMP #### [address] Creatinine [Mass/Vol] 0.69 mg/dL Normal 0.60-1.20 [facility] Comment on above: Performed By: #### T SH3 wRFLX, CBC, LIPID, CMP #### [place] [address] [place] GFR/1.73 sq M.predicted MDRD (S/P/Bld) [Vol rate/Area] mL/min/{1.73_m2} Normal [facility] Comment on above: Performed By: #### T SH3 wRFLX, CBC, LIPID, CMP #### [address] Globulin (S) [Mass/Vol] 3.4 g/dL Normal [facility] Comment on above: Performed By: #### T SH3 wRFLX, CBC, LIPID, CMP #### [address] Glucose [Mass/Vol] 135 mg/dL High 70-100 [facility] Comment on above: Result Comment: [place] Glucose Reference Range is dependent on time and content of last meal. Glucose of more than 200 mg/dL in a nonstressed, ambulatory subject supports the diagnosis of Diabetes Mellitus. ADA recommended reference range Performed By: #### T SH3 wRFLX, CBC, LIPID, CMP #### [address] Potassium [Moles/Vol] 4.4 mmol/L Normal 3.5-5.1 [facility] Comment on above: Performed By: #### T SH3 wRFLX, CBC, LIPID, CMP #### [address] Protein [Mass/Vol] 7.5 g/dL Normal 6.4-8.9 [facility] Comment on above: Performed By: #### T SH3 wRFLX, CBC, LIPID, CMP #### [facility] [address] [place] [address] [place] Sodium [Moles/Vol] 139 mmol/L Normal 136-145 [facility] Comment on above: Performed By: #### T SH3 wRFLX, CBC, LIPID, CMP #### [facility] [address] [place] [address] [place] Urea nitrogen [Mass/Vol] 11 mg/dL Normal 7-25 [facility] Comment on above: Performed By: #### T SH3 wRFLX, CBC, LIPID, CMP #### [facility] [address] [place] [address] [place] Creatinine [Mass/volume] in Serum or PlasmaOrdered By: Vicky Oshea on 06-05-2024 Creatinine [Mass/Vol] Creatinine [Mass/v olume] in Serum or Plasma 0.60-1.20 [facility] Eosinophils Auto (Bld) [#/Vo l]Ordered By: Vicky Oshea on 06-05-2024 Eosinophils (Bld) [#/Vol] Automated eosinophil count 0.0-0.45 [facility] Eosinophils/100 WBC Auto (Bl d)Ordered By: Vicky Oshea on 06-05-2024 Eosinophils/100 WBC (Bld) Automated eosinophil % . [facility] Erythrocyte distribution wid th Auto (RBC) [Ratio]Ordered By: Vicky Oshea on 06-05-2024 Erythrocyte distribution width (RBC) [Ratio] Erythrocyte distribution width [Ratio] by Automated count 11.9-15.3 [facility] Globulin Calc (S) [Mass/Vol] Ordered By: Vicky Oshea on 06-05-2024 Globulin (S) [Mass/Vol] Serum globulin measurement by calculation (mass/volume) [facility] Glucose [Mass/volume] in Ser um or PlasmaOrdered By: Vicky Oshea on 06-05-2024 Glucose [Mass/Vol] Glucose [Mass/volume ] in Serum or Plasma High 70-100 [facility] Comment on above: ADA recommended refe rence rangeRandom Glucose Reference Range is dependent on time and content of last meal. Glucose of more than 200 mg/dL in a nonstressed, ambulatory subject supports the diagnosis of Diabetes Mellitus. Hematocrit Auto (Bld) [Volum e fraction]Ordered By: Vicky Oshea on 06-05-2024 Hematocrit (Bld) [Volume fraction] Hematocrit [Volume Fraction] of Blood by Automated count 34.0-46.4 [facility] Hemoglobin [Mass/volume] in BloodOrdered By: Vicky Oshea on 06-05-2024 Hemoglobin (Bld) [Mass/Vol] Hemoglobin [Mass/volume] in Blood 11.8-15.4 [facility] Leukocytes [#/volume] correc gilma for nucleated erythrocytes in Blood by Automated counOrdered By: Vicky Oshea on 06-05-2024 WBC corrected for nucl RBC Auto (Bld) [#/Vol] Leukocytes [#/volume] corrected for nucleated erythrocytes in Blood by Automated coun High 3.8-11.6 [facility] Lipaseon 06-05-2024 Lipase [Catalytic activity/Vol] 28.0 U/L Normal 11.0-82.0 [facility] Comment on above: Result Comment: PERF ORMED BY: [place] [address] PATHOLOGIST ENERGY TECHNICIAN RODOLFO BOONE M.D. Performed By: #### T SH3 wRFLX, CBC, LIPID, CMP #### [facility] [address] Lipase [Enzymatic activity/v olume] in Serum or PlasmaOrdered By: Vicky Oshea on 06-05-2024 Lipase [Catalytic activity/Vol] Lipase [Enzymatic activity/volume] in Serum or Plasma 11.0-82.0 [facility] Lymphocytes Auto (Bld) [#/Vo l]Ordered By: Vicky Oshea on 06-05-2024 Lymphocytes (Bld) [#/Vol] Lymphocytes [#/volume] in Blood by Automated count Low 1.00-4.8 [facility] Lymphocytes/100 WBC Auto (Bl d)Ordered By: Vicky Oshea on 06-05-2024 Lymphocytes/100 WBC (Bld) Lymphocytes/100 leukocytes in Blood by Automated count . [facility] MCH Auto (RBC) [Entitic mass ]Ordered By: Vicky Oshea on 06-05-2024 MCH (RBC) [Entitic mass] MCH [Entitic mass] by Automated count 24.7-34.3 [facility] MCHC Auto (RBC) [Mass/Vol]Or dered By: Vicky Oshea on 06-05-2024 MCHC (RBC) [Mass/Vol] MCHC [Mass/volume] by Automated count 32.0-35.0 [facility] MCV Auto (RBC) [Entitic vol] Ordered By: Vicky Oshea on 06-05-2024 MCV (RBC) [Entitic vol] MCV [Entitic volume] by Automated count 80-100 [facility] Monocytes Auto (Bld) [#/Vol] Ordered By: Vicky Oshea on 06-05-2024 Monocytes (Bld) [#/Vol] Automated blood monocyte count 0.0-0.8 [facility] Monocytes/100 WBC Auto (Bld) Ordered By: Vicky Oshea on 06-05-2024 Monocytes/100 WBC (Bld) Automated monocyte % . [facility] Neutrophils Auto (Bld) [#/Vo l]Ordered By: Vicky Oshea on 06-05-2024 Neutrophils (Bld) [#/Vol] Neutrophils [#/volume] in Blood by Automated count High 1.8-7.7 [facility] Neutrophils/100 WBC Auto (Bl d)Ordered By: Vicky Oshea on 06-05-2024 Neutrophils/100 WBC (Bld) Automated neutrophil % . [facility] No Panel InformationOrdered By: Vicky Oshea on 06-05-2024 Estimated GFR (CKD-EPI) > 60.0 mL/Min [facility] Creatinine Clearance (Chem N/A [facility] Nucleated erythrocytes [Pres ence] in Blood by Automated countOrdered By: Vicky Oshea on 06-05-2024 Nucleated RBC Auto Ql (Bld) Nucleated erythrocytes [Presence] in Blood by Automated count 0-0.5 [facility] Platelet mean volume Auto (B ld) [Entitic vol]Ordered By: Vicky Oshea on 06-05-2024 Platelet mean volume (Bld) [Entitic vol] Platelet mean volume [Entitic volume] in Blood by Automated count 6.3-10.7 [facility] Platelets Auto (Bld) [#/Vol] Ordered By: Vicky Oshea on 06-05-2024 Platelets (Bld) [#/Vol] Platelets [#/volume] in Blood by Automated count 150-450 [facility] Potassium [Moles/volume] in Serum or PlasmaOrdered By: Vicky Oshea on 06-05-2024 Potassium [Moles/Vol] Potassium [Moles/v olume] in Serum or Plasma 3.5-5.1 [facility] Protein [Mass/volume] in Ser um or PlasmaOrdered By: Vicky Oshea on 06-05-2024 Protein [Mass/Vol] Protein [Mass/volume ] in Serum or Plasma 6.4-8.9 [facility] RBC Auto (Bld) [#/Vol]Ordere d By: Vicky Oshea on 06-05-2024 RBC (Bld) [#/Vol] Erythrocytes [#/volu me] in Blood by Automated count 3.60-5.00 [facility] Serum or plasma albumin/glob ulin mass ratioOrdered By: Vicky Oshea on 06-05-2024 Albumin/Globulin [Mass ratio] Serum or plasma albumin/globulin mass ratio [facility] Serum or plasma anion gap de terminationOrdered By: Vicky Oshea on 06-05-2024 Anion gap [Moles/Vol] Serum or plasma an ion gap determination High 6.0-15.0 [facility] Sodium [Moles/volume] in Ser um or PlasmaOrdered By: Vicky Oshea on 06-05-2024 Sodium [Moles/Vol] Sodium [Moles/volume ] in Serum or Plasma 136-145 [facility] Urea nitrogen [Mass/volume] in Serum or PlasmaOrdered By: Vicky Oshea on 06-05-2024 Urea nitrogen [Mass/Vol] Urea nitrogen [Mass/volume] in Serum or Plasma 7-25 [facility] WBC Auto (Bld) [#/Vol]Ordere d By: Vicky Oshea on 06-05-2024 WBC (Bld) [#/Vol] Leukocytes [#/volume ] in Blood by Automated count High 3.8-11.6 [facility] POCT Glucoseon 05-17-2024 Glucose [Mass/Vol] 121 mg/dL High 70 - 99 mg/dl [facility] Interpretation and review of laboratory results Abnormal [facility] Performed on ACCU-CHEK [facility] Comment on above: Notified RN or MD [facility] Glucose [Mass/Vol] 121 mg/dL Critically high 70-99 M [facility] Comment on above: Performed By: #### C MP #### [facility] [address] [place] [address] POC Performed on ACCU-CHEK Normal [facility] Comment on above: Result Comment: Alex blanchard RN or MD Performed By: #### C MP #### [facility] [address] [place] [address] Surgical Specimenon 05-17-20 24 Surgical Specimen [facility] [address] [place] [address] FINAL SURGICAL PATHOLOGY REPORT Patient Name: KYM BRISCOE Accession No: [id number] Age Sex: 1955 Location: [facility] Account No: [id number] Collected: 05/17/2024 [facility] Rec No: [id number] Received: 05/18/2024 Attend Phys: MARY FORD Completed: 05/23/2024 Perform Phys: MARY FORD FINAL DIAGNOSIS: PANCREATIC BIOPSIES: LYMPHOID TISSUE, FAVOR REACTIVE NO EVIDENCE OF CARCINOMA COMMENT: PANCREATIC TISSUE IS NOT IDENTIFIED. IMMUNOHISTOCHEMICAL STAINING FOR CD3 AND CD20 HIGHLIGHTS A MIXTURE OF T CELLS AND B CELLS. IMMUNOHISTOCHEMICAL CONTROLS ARE APPROPRIATE. JACMO/JACMO CLINICAL INFORMATION: Abnormal gastrointestinal PET scan. SPECIMEN: PANCREATIC BIOPSIES GROSS DESCRIPTION: Specimen received in formalin in a container labeled Kym Briscoe and designated as pancreas , consists of multiple brownish-murphy tissue fragments mixed with blood clot, measuring in aggregate 1.0 x 0.5 x 0.1 cm. The specimen is filtered and submitted in toto in cassette A1. ALIFA/BEH CPT: 30312 X1 21294 X1 37649 X1 Intradepartmental Consultation performed by: Dr. BUNNY ANN M.D., who concurs with the above diagnosis. Carmen MONTOYA M.D. 05/23/2024 Electronically signed out by Page 1 of 1 Invalid Interpretation Code [facility] Comment on above: Performed By: #### S UR #### [facility] [address] [place] [address] Capillary blood glucose kavya urement by glucometer (mass/volume)Ordered By: Fidencio Alvarez on 05-12-2024 Glucose [Mass/Vol] 128 mg/dL Normal [facility] Comment on above: Random Glucose Refer ence Range is dependent on time and content of last meal. Glucose of more than 200 mg/dL in a nonstressed, ambulatory subject supports the diagnosis of Diabetes Mellitus. Result Comment: [place] Glucose Reference Range is dependent on time and content of last meal. Glucose of more than 200 mg/dL in a nonstressed, ambulatory subject supports the diagnosis of Diabetes Mellitus. PERFORMED BY: [place] [address] PATHOLOGIST ENERGY TECHNICIAN DAVID VELAZQUEZ M.D. Performed By: #### T SH3 wRFLX, CBC, LIPID, CMP #### [facility] [address] Glucose Glucometer (BldC) [M ass/Vol]Ordered By: Fidencio Alvarez on 05-12-2024 Glucose [Mass/Vol] Capillary blood gluc ose measurement by glucometer (mass/volume) [facility] Comment on above: Random Glucose Refer ence Range is dependent on time and content of last meal. Glucose of more than 200 mg/dL in a nonstressed, ambulatory subject supports the diagnosis of Diabetes Mellitus. Glucose Poct Glucometerson 1 Glucose [Mass/Vol] 107 mg/dL Normal [facility] Comment on above: Result Comment: [place] Glucose Reference Range is dependent on time and content of last meal. Glucose of more than 200 mg/dL in a nonstressed, ambulatory subject supports the diagnosis of Diabetes Mellitus. PERFORMED BY: [place] [address] PATHOLOGIST ENERGY TECHNICIAN DAVID VELAZQUEZ M.D. Performed By: #### T SH3 wRFLX, CBC, LIPID, CMP #### [address] A1C with Estimated Average G kelsea 05-11-2024 Glucose [Mass/Vol] 146 mg/dL Normal [facility] Comment on above: Result Comment: PERF ORMED BY: [place] [address] PATHOLOGIST ENERGY TECHNICIAN DAVID VELAZQUEZ M.D. Performed By: #### A DDONUAPLUS #### [address] Automated basophil %Ordered By: Mame Enriquez on 05-11-2024 Basophils/100 WBC (Bld) 2.6 % Normal . [facility] Comment on above: Performed By: #### C UU #### [address] Automated basophil countOrde red By: Mame Enriquez on 05-11-2024 Basophils (Bld) [#/Vol] 0.3 10*3/uL High 0.0-0.2 [facility] Comment on above: Result Comment: PERF ORMED BY: [place] [address] PATHOLOGIST ENERGY TECHNICIAN DAVID VELAZQUEZ M.D. Performed By: #### C UU #### [address] Automated blood monocyte cou ntOrdered By: Mame Enriquez on 05-11-2024 Monocytes (Bld) [#/Vol] 0.1 10*3/uL Normal 0.0-0.8 [facility] Comment on above: Performed By: #### C UU #### [address] Automated eosinophil %Ordere d By: Mame Enriquez on 05-11-2024 Eosinophils/100 WBC (Bld) 0.2 % Normal . [facility] Comment on above: Performed By: #### C UU #### [address] Automated eosinophil countOr dered By: aMme Enriquez on 05-11-2024 Eosinophils (Bld) [#/Vol] 0.0 10*3/uL Normal 0.0-0.45 [facility] Comment on above: Performed By: #### C UU #### [address] Automated monocyte %Ordered By: Mame Enriquez on 05-11-2024 Monocytes/100 WBC (Bld) 1.1 % Normal . [facility] Comment on above: Performed By: #### C UU #### [address] Automated neutrophil %Ordere d By: Mame Enriquez on 05-11-2024 Neutrophils/100 WBC (Bld) 82.0 % Normal . [facility] Comment on above: Performed By: #### C UU #### [address] Basic Metabolic Panelon 04-18 Creatinine Clr Calc Pharmacy 51.17 Normal [facility] Comment on above: Performed By: #### C UU #### [address] GFR/1.73 sq M.predicted MDRD (S/P/Bld) [Vol rate/Area] mL/min/{1.73_m2} Normal [facility] Comment on above: Performed By: #### C UU #### [address] Basophils Auto (Bld) [#/Vol] Ordered By: Mame Enriquez on 05-11-2024 Basophils (Bld) [#/Vol] Automated basophil count High 0.0-0.2 [facility] Basophils/100 WBC Auto (Bld) Ordered By: Mame Enriquez on 05-11-2024 Basophils/100 WBC (Bld) Automated basophil % . [facility] Blood estimated average gluc ose determination by estimation from glycated hemoglobinOrdered By: Mame Enriquez on 05-11-2024 Average glucose Estimated from glycated hemoglobin (Bld) [Mass/Vol] Glucose mean value [Mass/volume] in Blood Estimated from glycated hemoglobin [facility] Calcium [Mass/volume] in Ser um or PlasmaOrdered By: Mame Enriquez on 05-11-2024 Calcium [Mass/Vol] 9.4 mg/dL Normal 8.6-10.3 [facility] Comment on above: Performed By: #### C UU #### [facility] [address] Calcium [Mass/Vol] Calcium [Mass/volume ] in Serum or Plasma 8.6-10.3 [facility] Carbon dioxide, total [Moles /volume] in Serum or PlasmaOrdered By: Mame Enriquez on 05-11-2024 CO2 [Moles/Vol] 26.8 mmol/L Normal 21.0-31.0 [facility] Comment on above: Performed By: #### C UU #### [facility] [address] [place] [address] CO2 [Moles/Vol] Carbon dioxide, tota l [Moles/volume] in Serum or Plasma 21.0-31.0 [facility] Chloride [Moles/volume] in S tiffanie or PlasmaOrdered By: Mame Enriquez on 05-11-2024 Chloride [Moles/Vol] 101 mmol/L Normal 98-107 [facility] Comment on above: Performed By: #### C UU #### [facility] [address] Chloride [Moles/Vol] Chloride [Moles/vol ume] in Serum or Plasma 98-107 [facility] Complete Blood Count Auto Di ffon 05-11-2024 Mean Corpuscular HGB Conc 33.0 g/dL Normal 32.0-35.0 [facility] Comment on above: Performed By: #### C UU #### [facility] [address] [place] [address] [place] NRBC% 0.1 /100{WBC} Normal 0-0.5 [facility] Comment on above: Performed By: #### C UU #### [facility] [address] Creatinine [Mass/volume] in Serum or PlasmaOrdered By: Mame Enriquez on 05-11-2024 Creatinine [Mass/Vol] 0.67 mg/dL Normal 0.60-1.20 [facility] Comment on above: Performed By: #### C UU #### [facility] [address] [place] [id number] [facility] Creatinine [Mass/Vol] Creatinine [Mass/v olume] in Serum or Plasma 0.60-1.20 [facility] ECG 12 lead ECGon 05-11-2024 ECG 12 lead ECG [facility] [place] [address] [place] [address] Electrocardiograph Report Signed Patient: Kym Briscoe MR#: [id number] 42 : 1955 Acct:[id number] Age/Sex: 68 / F ADM Date: 05/10/24 Loc: Room: [address] [place] [address] Type: ADM IN Attending Dr: Fidencio Alvarez MD Ordering Provider: Fidencio Alvarez MD Date of Service: 05/11/24 ECG/ECG 12 lead ECG: chest pain Copies to: Test Reason : Blood Pressure : */* mmHG Vent. Rate : 52 BPM Atrial Rate : 52 BPM P-R Int : 142 ms QRS Dur : 86 ms QT Int : 392 ms P-R-T Axes : 75 72 -40 degrees QTcB Int : 364 ms Sinus bradycardia T wave abnormality, consider inferior ischemia T wave abnormality, consider anterior ischemia Abnormal ECG When compared with ECG of 10-May-2024 15:47, T wave inversion now evident in Inferior leads Inverted T waves have replaced nonspecific T wave abnormality in Anterior leads Confirmed by ANU GLORIA MD ([id number]) on 05/12/2024 11:28:39 AM Referred By: Electronically Signed By: ANU GLORIA MD Transcribed By: MUS Signed By Anu Gloria MD 1 1128 Normal [facility] Eosinophils Auto (Bld) [#/Vo l]Ordered By: Mame Enriquez on 05-11-2024 Eosinophils (Bld) [#/Vol] Automated eosinophil count 0.0-0.45 [facility] Eosinophils/100 WBC Auto (Bl d)Ordered By: Mame Enriquez on 05-11-2024 Eosinophils/100 WBC (Bld) Automated eosinophil % . [facility] Erythrocyte distribution wid th Auto (RBC) [Ratio]Ordered By: Mame Enriquez on 05-11-2024 Erythrocyte distribution width (RBC) [Ratio] Erythrocyte distribution width [Ratio] by Automated count 11.9-15.3 [facility] Erythrocyte distribution wid th [Ratio] by Automated countOrdered By: Mame Enriquez on 05-11-2024 Erythrocyte distribution width (RBC) [Ratio] 15.3 % Normal 11.9-15.3 [facility] Comment on above: Performed By: #### C UU #### [facility] [address] [place] [address] Erythrocytes [#/volume] in B lood by Automated countOrdered By: Mame Enriquez on 05-11-2024 RBC (Bld) [#/Vol] 4.49 10*6/uL Normal 3.60-5.00 [facility] Comment on above: Performed By: #### C UU #### [facility] [address] [place] [address] Folate [Mass/volume] in Seru m or PlasmaOrdered By: Mame Enriquez on 05-11-2024 Folate [Mass/Vol] 5.6 ng/mL Low >5.9 [facility] Comment on above: Folate reference ran ge: >5.9 ng/mlThe WHO technical consultation on folate and vitamin [id number] has determined that folate concentrations lessthan 4 ng/ml are considered deficient. Folate [Mass/Vol] Folate [Mass/volume] in Serum or Plasma Low >5.9 [facility] Comment on above: Folate reference ran ge: >5.9 ng/mlThe WHO technical consultation on folate and vitamin [id number] has determined that folate concentrations lessthan 4 ng/ml are considered deficient. Glucose Poct Glucometerson 1 Glucose [Mass/Vol] 89 mg/dL Normal [facility] Comment on above: Result Comment: [place] Glucose Reference Range is dependent on time and content of last meal. Glucose of more than 200 mg/dL in a nonstressed, ambulatory subject supports the diagnosis of Diabetes Mellitus. PERFORMED BY: [place] [address] PATHOLOGIST ENERGY TECHNICIAN DAVID VELAZQUEZ M.D. Performed By: #### T SH3 wRFLX, CBC, LIPID, CMP #### [address] Glucose [Mass/Vol] 68 mg/dL Normal [facility] Comment on above: Result Comment: [place] Glucose Reference Range is dependent on time and content of last meal. Glucose of more than 200 mg/dL in a nonstressed, ambulatory subject supports the diagnosis of Diabetes Mellitus. PERFORMED BY: [place] [address] PATHOLOGIST ENERGY TECHNICIAN DAVID VELAZQUEZ M.D. Performed By: #### T SH3 wRFLX, CBC, LIPID, CMP #### [address] Commemt1 Glu2: Cleaned Meter Normal [facility] Comment on above: Result Comment: PERF ORMED BY: [place] [address] PATHOLOGIST ENERGY TECHNICIAN DAVID VELAZQUEZ M.D. Performed By: #### T SH3 wRFLX, CBC, LIPID, CMP #### [address] Glucose [Mass/Vol] 96 mg/dL Normal [facility] Comment on above: Result Comment: [place] Glucose Reference Range is dependent on time and content of last meal. Glucose of more than 200 mg/dL in a nonstressed, ambulatory subject supports the diagnosis of Diabetes Mellitus. Performed By: #### T SH3 wRFLX, CBC, LIPID, CMP #### [address] Commemt1 Glu2: Cleaned Meter Normal [facility] Comment on above: Result Comment: PERF ORMED BY: [place] [address] PATHOLOGIST ENERGY TECHNICIAN DAVID VELAZQUEZ M.D. Performed By: #### T SH3 wRFLX, CBC, LIPID, CMP #### [place] [id number] [place] Glucose [Mass/Vol] 63 mg/dL Normal [facility] Comment on above: Result Comment: [place] Glucose Reference Range is dependent on time and content of last meal. Glucose of more than 200 mg/dL in a nonstressed, ambulatory subject supports the diagnosis of Diabetes Mellitus. Performed By: #### T SH3 wRFLX, CBC, LIPID, CMP #### [place] [address] [place] Commemt1 Glu2: Cleaned Meter Normal [facility] Comment on above: Result Comment: PERF ORMED BY: [place] [address] PATHOLOGIST ENERGY TECHNICIAN DAVID VELAZQUEZ M.D. Performed By: #### A DDONUAPLUS #### [place] [address] [place] Glucose [Mass/Vol] 65 mg/dL Normal [facility] Comment on above: Result Comment: [place] Glucose Reference Range is dependent on time and content of last meal. Glucose of more than 200 mg/dL in a nonstressed, ambulatory subject supports the diagnosis of Diabetes Mellitus. Performed By: #### A DDONUAPLUS #### [address] Commemt1 Glu2: Cleaned Meter Normal [facility] Comment on above: Result Comment: PERF ORMED BY: [place] [address] PATHOLOGIST ENERGY TECHNICIAN DAVID VELAZQUEZ M.D. Performed By: #### A DDONUAPLUS #### [place] [address] [place] Glucose [Mass/Vol] 83 mg/dL Normal [facility] Comment on above: Result Comment: [place] Glucose Reference Range is dependent on time and content of last meal. Glucose of more than 200 mg/dL in a nonstressed, ambulatory subject supports the diagnosis of Diabetes Mellitus. Performed By: #### A DDONUAPLUS #### [facility] [address] Commemt1 Glu2: Cleaned Meter Normal [facility] Comment on above: Result Comment: PERF ORMED BY: [facility] [address] [place] [address] PATHOLOGIST ENERGY TECHNICIAN DAVID VELAZQUEZ M.D. Performed By: #### T SH3 wRFLX, CBC, LIPID, CMP #### [facility] [address] [place] [address] [place] Glucose [Mass/Vol] 155 mg/dL Normal [facility] Comment on above: Result Comment: [facility] Glucose Reference Range is dependent on time and content of last meal. Glucose of more than 200 mg/dL in a nonstressed, ambulatory subject supports the diagnosis of Diabetes Mellitus. Performed By: #### T SH3 wRFLX, CBC, LIPID, CMP #### [facility] [address] [place] [id number] [place] Glucose [Mass/volume] in Ser um or PlasmaOrdered By: Mame Enriquez on 05-11-2024 Glucose [Mass/Vol] 156 mg/dL High 70-100 [facility] Comment on above: ADA recommended refe rence rangeRandom Glucose Reference Range is dependent on time and content of last meal. Glucose of more than 200 mg/dL in a nonstressed, ambulatory subject supports the diagnosis of Diabetes Mellitus. Result Comment: [place] Glucose Reference Range is dependent on time and content of last meal. Glucose of more than 200 mg/dL in a nonstressed, ambulatory subject supports the diagnosis of Diabetes Mellitus. ADA recommended reference range Performed By: #### C UU #### [facility] [address] [place] [id number] [place] Glucose [Mass/Vol] Glucose [Mass/volume ] in Serum or Plasma High 70-100 [facility] Comment on above: ADA recommended refe rence rangeRandom Glucose Reference Range is dependent on time and content of last meal. Glucose of more than 200 mg/dL in a nonstressed, ambulatory subject supports the diagnosis of Diabetes Mellitus. Glucose mean value [Mass/vol ume] in Blood Estimated from glycated hemoglobinOrdered By: Mame Enriquez on 05-11-2024 Average glucose Estimated from glycated hemoglobin (Bld) [Mass/Vol] 146 mg/dL [facility] Hematocrit Auto (Bld) [Volum e fraction]Ordered By: Mame Enriquez on 05-11-2024 Hematocrit (Bld) [Volume fraction] Hematocrit [Volume Fraction] of Blood by Automated count 34.0-46.4 [facility] Hematocrit [Volume Fraction] of Blood by Automated countOrdered By: Mame Enriquez on 05-11-2024 Hematocrit (Bld) [Volume fraction] 40.8 % Normal 34.0-46.4 [facility] Comment on above: Performed By: #### C UU #### [facility] [address] Hemoglobin A1c percentageOrd ered By: Mame Enriquez on 05-11-2024 HbA1c (Bld) [Mass fraction] 6.7 % High 4.3-5.6 [facility] Comment on above: Increased risk for d iabetes: 5.7 - 6.4diabetes: >6.4glycemic control for adults with diabetes: <7.0 Result Comment: Incr eased risk for diabetes: 5.7 - 6.4 diabetes: >6.4 glycemic control for adults with diabetes: <7.0 Performed By: #### A DDONUAPLUS #### [facility] [address] Hemoglobin A1c/Hemoglobin.to izabella in BloodOrdered By: Mame Enriquez on 05-11-2024 HbA1c (Bld) [Mass fraction] Hemoglobin A1c percentage High 4.3-5.6 [facility] Comment on above: Increased risk for d iabetes: 5.7 - 6.4diabetes: >6.4glycemic control for adults with diabetes: <7.0 Hemoglobin [Mass/volume] in BloodOrdered By: Mame Enriquez on 05-11-2024 Hemoglobin (Bld) [Mass/Vol] 13.5 g/dL Normal 11.8-15.4 [facility] Comment on above: Performed By: #### C UU #### [facility] [address] Hemoglobin (Bld) [Mass/Vol] Hemoglobin [Mass/volume] in Blood 11.8-15.4 [facility] Leukocytes [#/volume] correc gilma for nucleated erythrocytes in Blood by Automated counOrdered By: Mame Enriquez on 05-11-2024 WBC corrected for nucl RBC Auto (Bld) [#/Vol] 11.8 10*3/uL High 3.8-11.6 [facility] WBC corrected for nucl RBC Auto (Bld) [#/Vol] Leukocytes [#/volume] corrected for nucleated erythrocytes in Blood by Automated coun High 3.8-11.6 [facility] Leukocytes [#/volume] in Blo od by Automated countOrdered By: Mame Enriquez on 05-11-2024 WBC (Bld) [#/Vol] 11.8 10*3/uL High 3.8-11.6 [facility] Comment on above: Performed By: #### C UU #### [facility] [address] [place] [address] Lymphocytes Auto (Bld) [#/Vo l]Ordered By: Mame Enriquez on 05-11-2024 Lymphocytes (Bld) [#/Vol] Lymphocytes [#/volume] in Blood by Automated count 1.00-4.8 [facility] Lymphocytes [#/volume] in Bl ood by Automated countOrdered By: Mame Enriquez on 05-11-2024 Lymphocytes (Bld) [#/Vol] 1.7 10*3/uL Normal 1.00-4.8 [facility] Comment on above: Performed By: #### C UU #### [facility] [address] [place] [address] [place] Lymphocytes/100 WBC Auto (Bl d)Ordered By: Mame Enriquez on 05-11-2024 Lymphocytes/100 WBC (Bld) Lymphocytes/100 leukocytes in Blood by Automated count . [facility] Lymphocytes/100 leukocytes i n Blood by Automated countOrdered By: Mame Enriquez on 10-25-2024 Lymphocytes/100 WBC (Bld) 14.1 % Normal . [facility] Comment on above: Performed By: #### C UU #### [address] MCH Auto (RBC) [Entitic mass ]Ordered By: Mame Enriquez on 05-11-2024 MCH (RBC) [Entitic mass] MCH [Entitic mass] by Automated count 24.7-34.3 [facility] MCH [Entitic mass] by Automa gilma countOrdered By: Mame Enriquez on 05-11-2024 MCH (RBC) [Entitic mass] 30.0 pg Normal 24.7-34.3 [facility] Comment on above: Performed By: #### C UU #### [address] MCHC Auto (RBC) [Mass/Vol]Or dered By: Mame Enriquez on 05-11-2024 MCHC (RBC) [Mass/Vol] 33.0 g/dL 32.0-35.0 [facility] MCHC (RBC) [Mass/Vol] MCHC [Mass/volume] by Automated count 32.0-35.0 [facility] MCV Auto (RBC) [Entitic vol] Ordered By: Mame Enriquez on 05-11-2024 MCV (RBC) [Entitic vol] MCV [Entitic volume] by Automated count 80-100 [facility] MCV [Entitic volume] by Auto mated countOrdered By: Mame Enriquez on 05-11-2024 MCV (RBC) [Entitic vol] 90.9 fL Normal 80-100 [facility] Comment on above: Performed By: #### C UU #### [address] Magnesium [Mass/volume] in S tiffanie or PlasmaOrdered By: Mame Enriquez on 05-11-2024 Magnesium [Mass/Vol] 2.0 mg/dL Normal 1.9-2.7 [facility] Comment on above: Performed By: #### C UU #### [address] Magnesium [Mass/Vol] Magnesium [Mass/vol ume] in Serum or Plasma 1.9-2.7 [facility] Monocytes Auto (Bld) [#/Vol] Ordered By: Mame Enriquez on 05-11-2024 Monocytes (Bld) [#/Vol] Automated blood monocyte count 0.0-0.8 [facility] Monocytes/100 WBC Auto (Bld) Ordered By: Mame Enriquez on 05-11-2024 Monocytes/100 WBC (Bld) Automated monocyte % . [facility] Neutrophils Auto (Bld) [#/Vo l]Ordered By: Mame Enriquez on 05-11-2024 Neutrophils (Bld) [#/Vol] Neutrophils [#/volume] in Blood by Automated count High 1.8-7.7 [facility] Neutrophils [#/volume] in Bl ood by Automated countOrdered By: Mame Enriquez on 05-11-2024 Neutrophils (Bld) [#/Vol] 9.6 10*3/uL High 1.8-7.7 [facility] Comment on above: Performed By: #### C UU #### [facility] [address] [place] [address] Neutrophils/100 WBC Auto (Bl d)Ordered By: Mame Enriquez on 05-11-2024 Neutrophils/100 WBC (Bld) Automated neutrophil % . [facility] No Panel InformationOrdered By: Fidencio Alvarez on 05-11-2024 Bedside Glucose Comment Glu2: cleaned meter [facility] No Panel InformationOrdered By: Mame Enriquez on 05-11-2024 Estimated GFR (CKD-EPI) > 60.0 mL/Min [facility] Creatinine Clearance (Chem 51.17 [facility] Nucleated erythrocytes [Pres ence] in Blood by Automated countOrdered By: Mame Enriquez on 05-11-2024 Nucleated RBC Auto Ql (Bld) 0.1 /100{WBC} 0-0.5 [facility] Nucleated RBC Auto Ql (Bld) Nucleated erythrocytes [Presence] in Blood by Automated count 0-0.5 [facility] Platelet mean volume Auto (B ld) [Entitic vol]Ordered By: Mame Enriquez on 05-11-2024 Platelet mean volume (Bld) [Entitic vol] Platelet mean volume [Entitic volume] in Blood by Automated count 6.3-10.7 [facility] Platelet mean volume [Entiti c volume] in Blood by Automated countOrdered By: Mame Enriquez on 05-11-2024 Platelet mean volume (Bld) [Entitic vol] 9.6 fL Normal 6.3-10.7 [facility] Comment on above: Performed By: #### C UU #### [facility] [address] [place] [address] [place] Platelets Auto (Bld) [#/Vol] Ordered By: Mame Enriquez on 05-11-2024 Platelets (Bld) [#/Vol] Platelets [#/volume] in Blood by Automated count 150-450 [facility] Platelets [#/volume] in Bloo d by Automated countOrdered By: Mame Enriquez on 05-11-2024 Platelets (Bld) [#/Vol] 294 10*3/uL Normal 150-450 [facility] Comment on above: Performed By: #### C UU #### [place] [address] [place] Potassium [Moles/volume] in Serum or PlasmaOrdered By: Mame Enriquez on 05-11-2024 Potassium [Moles/Vol] 3.9 mmol/L Normal 3.5-5.1 [facility] Comment on above: Performed By: #### C UU #### [place] [address] [place] Potassium [Moles/Vol] Potassium [Moles/v olume] in Serum or Plasma 3.5-5.1 [facility] RBC Auto (Bld) [#/Vol]Ordere d By: Maem Enriquez on 05-11-2024 RBC (Bld) [#/Vol] Erythrocytes [#/volu me] in Blood by Automated count 3.60-5.00 [facility] Serum or plasma anion gap de terminationOrdered By: Maem Enriquez on 05-11-2024 Anion gap [Moles/Vol] 12.1 mmol/L Normal 6.0-15.0 [facility] Comment on above: Performed By: #### C UU #### [address] Anion gap [Moles/Vol] Serum or plasma an ion gap determination 6.0-15.0 [facility] Sodium [Moles/volume] in Ser um or PlasmaOrdered By: Mame Enriquez on 05-11-2024 Sodium [Moles/Vol] 136 mmol/L Normal 136-145 [facility] Comment on above: Performed By: #### C UU #### [address] Sodium [Moles/Vol] Sodium [Moles/volume ] in Serum or Plasma 136-145 [facility] Thyrotropin [Units/volume] i n Serum or PlasmaOrdered By: Mame Enriquez on 05-11-2024 TSH Qn 0.81 m[IU]/L Normal 0.45-5.33 [facility] Comment on above: Performed By: #### C UU #### [address] TSH Qn Thyrotropin [Units/volume] in Serum or Plasma 0.45-5.33 [facility] Urea nitrogen [Mass/volume] in Serum or PlasmaOrdered By: Mame Enriquez on 05-11-2024 Urea nitrogen [Mass/Vol] 13 mg/dL Normal 02-08 [facility] Comment on above: Performed By: #### C UU #### [address] Urea nitrogen [Mass/Vol] Urea nitrogen [Mass/volume] in Serum or Plasma 02-08 [facility] Vit. B12/Folate Profileon Folate 5.6 ng/mL Low >5.9 [facility] Comment on above: Result Comment: Kareen te reference range: >5.9 ng/ml The WHO technical consultation on folate and vitamin b12 deficiencies has determined that folate concentrations less than 4 ng/ml are considered deficient. Performed By: #### C UU #### [address] Vitamin B12 ser/plasOrdered By: Mame Enriquez on 05-11-2024 Cobalamin (Vitamin B12) [Mass/Vol] 285 pg/mL Normal 180-914 [facility] Comment on above: Performed By: #### C UU #### [facility] [address] [place], [place] [id number] [facility] Cobalamin (Vitamin B12) [Mass/Vol] Vitamin B12 ser/plas 180-914 [facility] Vitamin D 25 Hydroxy Totalon 05-11-2024 Vitamin D 25 Hydroxy Total 20.7 ng/mL Low 30-100 [facility] Comment on above: Result Comment: MUSHTAQ MIN D STATUS 25([place])VITAMIN D RANGE (ng/mL) Deficient <20 Insufficient 20 to <30 Sufficient 30 to 100 Reference: Usman Schneider, Ashley MALAVE, et al. Evaluation,treatment, and prevention of vitamin D deficiency; an Endocrine Society clinical practice guideline. JCEM. 2010; 96(7):1911-30. PERFORMED BY: [place] [address] [facility] ENERGY TECHNICIAN DAVID VELAZQUEZ M.D. Performed By: #### C UU #### [address] Vitamin D+Metabolites [Mass/ volume] in Serum or PlasmaOrdered By: Mame Enriquez on 05-11-2024 Vitamin D+Metabolites [Mass/Vol] 20.7 ng/mL Low 30-100 [facility] Comment on above: VITAMIN D STATUS 25( [place])VITAMIN D RANGE (ng/mL) Deficient <20 Insufficient 20 to <30Sufficient 30 to 100Reference: Usman Schneider, Ashley MALAVE, et al. Evaluation,treatment, and prevention of vitamin D deficiency; an Endocrine Society clinical practice guideline. JCEM. 2010; 96(7):1911-30. Vitamin D+Metabolites [Mass/Vol] Vitamin D+Metabolites [Mass/volume] in Serum or Plasma Low 30-100 [facility] Comment on above: VITAMIN D STATUS 25( [place])VITAMIN D RANGE (ng/mL) Deficient <20 Insufficient 20 to <30Sufficient 30 to 100Reference: Usman Schneider, Ashley MALAVE, et al. Evaluation,treatment, and prevention of vitamin D deficiency; an Endocrine Society clinical practice guideline. JCEM. 2010; 96(7):1911-30. WBC Auto (Bld) [#/Vol]Ordere d By: Mame Enriquez on 05-11-2024 WBC (Bld) [#/Vol] Leukocytes [#/volume ] in Blood by Automated count High 3.8-11.6 [facility] Alanine aminotransferase [En zymatic activity/volume] in Serum or PlasmaOrdered By: PROVIDER TEMP on 05-10-2024 ALT [Catalytic activity/Vol] 15 U/L Normal [facility] Comment on above: Performed By: #### T SH3 wRFLX, CBC, LIPID, CMP #### [facility] [address] ALT [Catalytic activity/Vol] Alanine aminotransferase [Enzymatic activity/volume] in Serum or Plasma [facility] Albumin [Mass/volume] in Ser um or Plasma by Bromocresol green (BCG) dye binding methoOrdered By: PROVIDER TEMP on 05-10-2024 Albumin BCG dye [Mass/Vol] 4.2 g/dL 3.5-5.7 [facility] Albumin BCG dye [Mass/Vol] Albumin [Mass/volume] in Serum or Plasma by Bromocresol green (BCG) dye binding metho 3.5-5.7 [facility] Alkaline phosphatase [Enzyma tic activity/volume] in Serum or PlasmaOrdered By: PROVIDER TEMP on 05-10-2024 ALP [Catalytic activity/Vol] 112 U/L High - [facility] Comment on above: Performed By: #### T SH3 wRFLX, CBC, LIPID, CMP #### [facility] [address] [place] [id number] [place] ALP [Catalytic activity/Vol] Alkaline phosphatase [Enzymatic activity/volume] in Serum or Plasma High - [facility] Ammonia [Moles/volume] in Pl asmaOrdered By: Katelyn Bartholomew on 05-10-2024 Ammonia (P) [Moles/Vol] 14 umol/L Normal [facility] Comment on above: Result Comment: PERF ORMED BY: [place] [address] PATHOLOGIST ENERGY TECHNICIAN DAVID VELAZQUEZ M.D. Performed By: #### A MM #### [address] Ammonia (P) [Moles/Vol] Ammonia [Moles/volume] in Plasma [facility] Appearance of UrineOrdered B y: Katelyn Bartholomew on 05-10-2024 Appearance (U) Urine appearance Clear [facility] Aspartate aminotransferase [ Enzymatic activity/volume] in Serum or PlasmaOrdered By: PROVIDER TEMP on 05-10-2024 AST [Catalytic activity/Vol] 20 U/L Normal [facility] Comment on above: Performed By: #### T SH3 wRFLX, CBC, LIPID, CMP #### [facility] [address] [place] [address] AST [Catalytic activity/Vol] Aspartate aminotransferase [Enzymatic activity/volume] in Serum or Plasma [facility] Automated basophil %Ordered By: PROVIDER TEMP on 05-10-2024 Basophils/100 WBC (Bld) 1.2 % Normal . [facility] Comment on above: Performed By: #### T SH3 wRFLX, CBC, LIPID, CMP #### [address] Automated basophil countOrde red By: PROVIDER TEMP on 05-10-2024 Basophils (Bld) [#/Vol] 0.1 10*3/uL Normal 0.0-0.2 [facility] Comment on above: Result Comment: PERF ORMED BY: [place] [address] PATHOLOGIST ENERGY TECHNICIAN DAVID VELAZQUEZ M.D. Performed By: #### T SH3 wRFLX, CBC, LIPID, CMP #### [facility] [address] [place] [address] Automated blood monocyte cou ntOrdered By: PROVIDER TEMP on 05-10-2024 Monocytes (Bld) [#/Vol] 0.9 10*3/uL High 0.0-0.8 [facility] Comment on above: Performed By: #### T SH3 wRFLX, CBC, LIPID, CMP #### [facility] [address] [place] [address] Automated eosinophil %Ordere d By: PROVIDER TEMP on 05-10-2024 Eosinophils/100 WBC (Bld) 2.1 % Normal . [facility] Comment on above: Performed By: #### T SH3 wRFLX, CBC, LIPID, CMP #### [address] Automated eosinophil countOr dered By: PROVIDER TEMP on 05-10-2024 Eosinophils (Bld) [#/Vol] 0.2 10*3/uL Normal 0.0-0.45 [facility] Comment on above: Performed By: #### T SH3 wRFLX, CBC, LIPID, CMP #### [facility] [address] [place] [address] Automated monocyte %Ordered By: PROVIDER TEMP on 05-10-2024 Monocytes/100 WBC (Bld) 7.5 % Normal . [facility] Comment on above: Performed By: #### T SH3 wRFLX, CBC, LIPID, CMP #### [facility] [address] [place] [address] Automated neutrophil %Ordere d By: PROVIDER TEMP on 05-10-2024 Neutrophils/100 WBC (Bld) 67.5 % Normal . [facility] Comment on above: Performed By: #### T SH3 wRFLX, CBC, LIPID, CMP #### [facility] [address] [place] [address] Bacteria [Presence] in Urine by AutomatedOrdered By: Katelyn Bartholomew on 05-10-2024 Bacteria Auto Ql (U) Rare [HPF] None Seen [facility] Bacteria Auto Ql (U) Bacteria [Presence] in Urine by Automated None Seen [facility] Bilirubin Test strip Ql (U)O rdered By: Katelyn Bartholomew on 05-10-2024 Bilirubin Ql (U) Negative Negative [facility] Bilirubin Ql (U) Bilirubin.total [Presence] in Urine by Test strip Negative [facility] Bilirubin.total [Mass/volume ] in Serum or PlasmaOrdered By: PROVIDER TEMP on 05-10-2024 Bilirubin [Mass/Vol] 0.3 mg/dL Normal 0.3-1.0 [facility] Comment on above: Performed By: #### T SH3 wRFLX, CBC, LIPID, CMP #### [facility] [address] Bilirubin [Mass/Vol] Bilirubin.total [Mass/volume] in Serum or Plasma 0.3-1.0 [facility] CT head/brain wo conon 05-10 CT head/brain wo con [facility] Main [place] [address] [place] [address] CT Scan Report Signed Patient: Kym Briscoe MR#: [id number] 42 : 1955 Acct:[id number] Age/Sex: 68 / F ADM Date: 05/10/24 Loc: ER Room: Type: [facility] ER Attending Dr: Copies to: Katelyn Barhtolomew APRN Ordering Provider: Katelyn Bartholomew APRN Date of Service: 05/10/24 CT/CT head/brain wo con: confusion CLINICAL DATA: Confusion CT BRAIN WITHOUT CONTRAST: COMPARISON: 10/22/2023 TECHNIQUE: Contiguous axial unenhanced images were obtained through the brain. This CT exam was performed using one or more following dose reduction techniques: Automated exposure control, adjustment of the mA and/or kV according to patient size, or use of iterative reconstruction technique. FINDINGS: There is generalized atrophy. The ventricles are normal in size and position. Chronic microvascular changes are again noted. There are no additional areas of abnormal attenuation. There is no hemorrhage, mass effect or extra-axial collections. The imaged paranasal sinuses and mastoid air cells are clear. Carotid siphon plaque is present. CT/CT head/brain wo con IMPRESSION: ATROPHY AND SMALL VESSEL ISCHEMIC CHANGES. NO ACUTE INTRACRANIAL ABNORMALITY. Impression dictated by: Jayla Herr M.D.05/10/2024 6:15 PM Dictation Location: [place] [address] Transcribed By: [facility] 05/10/24 800 Dictated By: Jayla Herr MD 05/10/241811 Signed By: 05/10/241814 Normal [facility] Calcium [Mass/volume] in Ser um or PlasmaOrdered By: PROVIDER TEMP on 05-10-2024 Calcium [Mass/Vol] 9.6 mg/dL Normal 8.6-10.3 [facility] Comment on above: Performed By: #### T SH3 wRFLX, CBC, LIPID, CMP #### [facility] [address] [place] [address] Capillary blood glucose kavya urement by glucometer (mass/volume)Ordered By: PROVIDER TEMP on 05-10-2024 Glucose [Mass/Vol] 84 mg/dL Normal [facility] Comment on above: Random Glucose Refer ence Range is dependent on time and content of last meal. Glucose of more than 200 mg/dL in a nonstressed, ambulatory subject supports the diagnosis of Diabetes Mellitus. Result Comment: [place] om Glucose Reference Range is dependent on time and content of last meal. Glucose of more than 200 mg/dL in a nonstressed, ambulatory subject supports the diagnosis of Diabetes Mellitus. PERFORMED BY: [place] [address] PATHOLOGIST ENERGY TECHNICIAN DAVID VELAZQUEZ M.D. Performed By: #### T SH3 wRFLX, CBC, LIPID, CMP #### [facility] [address] [place] [address] Carbon dioxide, total [Moles /volume] in Serum or PlasmaOrdered By: PROVIDER TEMP on 05-10-2024 CO2 [Moles/Vol] 25.5 mmol/L Normal 21.0-31.0 [facility] Comment on above: Performed By: #### T SH3 wRFLX, CBC, LIPID, CMP #### [facility] [address] [place] [address] [place] Chloride [Moles/volume] in S tiffanie or PlasmaOrdered By: PROVIDER TEMP on 05-10-2024 Chloride [Moles/Vol] 104 mmol/L Normal 98-107 [facility] Comment on above: Performed By: #### T SH3 wRFLX, CBC, LIPID, CMP #### [address] Color Auto (U)Ordered By: James Bartholomew on 05-10-2024 Color (U) Color of Urine by Auto Yellow [facility] Color of Urine by AutoOrdere d By: Katelyn Bartholomew on 05-10-2024 Color (U) Colorless Normal Yellow [facility] Comment on above: Order Comment: Name Collection Type:: Clean-Voided Midstream Performed By: #### A DDONUAPLUS #### [address] Complete Blood Count Auto Di ffon 05-10-2024 Mean Corpuscular HGB Conc 32.4 g/dL Normal 32.0-35.0 [facility] Comment on above: Performed By: #### T SH3 wRFLX, CBC, LIPID, CMP #### [address] Monocytes/100 WBC (Bld) 19.33 % Normal 0.00-20.00 [facility] Comment on above: Performed By: #### T SH3 wRFLX, CBC, LIPID, CMP #### [address] NRBC% 0.0 /100{WBC} Normal 0-0.5 [facility] Comment on above: Performed By: #### T SH3 wRFLX, CBC, LIPID, CMP #### [address] Comprehensive Metabolic Pane margarita 05-10-2024 Albumin [Mass/Vol] 4.2 g/dL Normal 3.5-5.7 [facility] Comment on above: Performed By: #### T SH3 wRFLX, CBC, LIPID, CMP #### [address] Creatinine Clr Calc Pharmacy 51.63 Normal [facility] Comment on above: Result Comment: PERF ORMED BY: [place] [address] PATHOLOGIST ENERGY TECHNICIAN DAVID VELAZQUEZ M.D. Performed By: #### T SH3 wRFLX, CBC, LIPID, CMP #### [facility] [address] [place] [address] [place] GFR/1.73 sq M.predicted MDRD (S/P/Bld) [Vol rate/Area] mL/min/{1.73_m2} Normal [facility] Comment on above: Performed By: #### T SH3 wRFLX, CBC, LIPID, CMP #### [facility] [address] [place] [address] [place] Creatine kinase [Enzymatic a ctivity/volume] in Serum or PlasmaOrdered By: PROVIDER TEMP on 05-10-2024 CK [Catalytic activity/Vol] 34 U/L Normal [facility] Comment on above: Performed By: #### T SH3 wRFLX, CBC, LIPID, CMP #### [place] [address] [place] CK [Catalytic activity/Vol] Creatine kinase [Enzymatic activity/volume] in Serum or Plasma [facility] Creatinine [Mass/volume] in Serum or PlasmaOrdered By: PROVIDER TEMP on 05-10-2024 Creatinine [Mass/Vol] 0.70 mg/dL Normal 0.60-1.20 [facility] Comment on above: Performed By: #### T SH3 wRFLX, CBC, LIPID, CMP #### [place] [address] [place] Dipstick and Microscopicon 1 Bacteria,Urine Rare Normal None Seen [facility] Comment on above: Order Comment: Name Collection Type:: Clean-Voided Midstream Performed By: #### A DDONUAPLUS #### [place] [address] [place] Bilirubin,Urine Negative Normal Negative [facility] Comment on above: Order Comment: Name Collection Type:: Clean-Voided Midstream Performed By: #### A DDONUAPLUS #### [place] [address] [place] Glucose Ql (U) 300 mg/dL High Normal [facility] Comment on above: Order Comment: Name Collection Type:: Clean-Voided Midstream Performed By: #### A DDONUAPLUS #### [place] [address] [place] Hyaline Casts,Urine None Normal 0-8 [facility] Comment on above: Order Comment: Name Collection Type:: Clean-Voided Midstream Performed By: #### A DDONUAPLUS #### [place] [address] [place] Mucus,Urine Rare Normal [facility] Comment on above: Order Comment: Name Collection Type:: Clean-Voided Midstream Result Comment: PERF ORMED BY: [place] [address] PATHOLOGIST ENERGY TECHNICIAN DAVID VELAZQUEZ M.D. Performed By: #### A DDONUAPLUS #### [place] [address] [place] Nitrite,Urine Negative Normal Negative [facility] Comment on above: Order Comment: Name Collection Type:: Clean-Voided Midstream Performed By: #### A DDONUAPLUS #### [place] [address] [place] Occult Blood,Urine Negative Normal Negative [facility] Comment on above: Order Comment: Name Collection Type:: Clean-Voided Midstream Result Comment: PERF ORMED BY: [place] [address] PATHOLOGIST ENERGY TECHNICIAN DAVID VELAZQUEZ M.D. Performed By: #### A DDONUAPLUS #### [place] [address] [place] Protein,Urine Negative Normal Negative [facility] Comment on above: Order Comment: Name Collection Type:: Clean-Voided Midstream Performed By: #### A DDONUAPLUS #### [place] [address] [place] RBC,Urine None Seen Normal 0-4 [facility] Comment on above: Order Comment: Name Collection Type:: Clean-Voided Midstream Performed By: #### A DDONUAPLUS #### [facility] [address] Specificy [place],Urine 1.004 Normal 1.001-1.03 0 [facility] Comment on above: Order Comment: Name Collection Type:: Clean-Voided Midstream Performed By: #### A DDONUAPLUS #### [facility] [address] Urobilinogen,Urine Normal Normal Normal [facility] Comment on above: Order Comment: Name Collection Type:: Clean-Voided Midstream Performed By: #### A DDONUAPLUS #### [facility] [address] WBC,Urine 10-19 High 0-4 [facility] Comment on above: Order Comment: Name Collection Type:: Clean-Voided Midstream Performed By: #### A DDONUAPLUS #### [address] ECG 12 lead ECGon 05-10-2024 ECG 12 lead ECG [facility] Main [place] [address] [place] [address] Electrocardiograph Report Signed Patient: Kym Briscoe MR#: [id number] 42 : 1955 Acct:[id number] Age/Sex: 68 / F ADM Date: 05/10/24 Loc: Room: [address] [place] [address] Type: ADM IN Attending Dr: Tahir Amin MD Ordering Provider: Katelyn Bartholomew APRN Date of Service: 05/10/24 ECG/ECG 12 lead ECG: Dizziness Copies to: Test Reason : Blood Pressure : 110/56 mmHG Vent. Rate : 54 BPM Atrial Rate : 54 BPM P-R Int : 130 ms QRS Dur : 82 ms QT Int : 404 ms P-R-T Axes : 76 61 22 degrees QTcB Int : 383 ms Sinus bradycardia Nonspecific T wave abnormality Abnormal ECG When compared with ECG of 22-Oct-2023 13:42, T wave inversion no longer evident in Inferior leads Nonspecific T wave abnormality has replaced inverted T waves in Anterolateral leads Confirmed by ROBERT AL DO ([id number]) on 05/11/2024 12:57:38 AM Referred By: Electronically Signed By: ROBERT AL DO Transcribed By: MUS Signed By Robert Al DO 05/11 0057 Normal [facility] Epithelial cells.squamous [# /area] in Urine sediment by Automated countOrdered By: Katelyn Bartholomew on 05-10-2024 Epithelial cells.squamous Auto (Urine sed) [#/Area] N/A [facility] Epithelial cells.squamous Auto (Urine sed) [#/Area] Epithelial cells.squamous [#/area] in Urine sediment by Automated count [facility] Erythrocyte distribution wid th [Ratio] by Automated countOrdered By: PROVIDER TEMP on 05-10-2024 Erythrocyte distribution width (RBC) [Ratio] 15.7 % High 11.9-15.3 [facility] Comment on above: Performed By: #### T SH3 wRFLX, CBC, LIPID, CMP #### [facility] [address] [place] [address] [place] Erythrocytes [#/area] in Uri ne sediment by Automated countOrdered By: Katelyn Bartholomew on 05-10-2024 RBC Auto (Urine sed) [#/Area] None seen [HPF] 0-4 [facility] RBC Auto (Urine sed) [#/Area] Erythrocytes [#/area] in Urine sediment by Automated count 0-4 [facility] Erythrocytes [#/volume] in B lood by Automated countOrdered By: PROVIDER TEMP on 05-10-2024 RBC (Bld) [#/Vol] 4.67 10*6/uL Normal 3.60-5.00 [facility] Comment on above: Performed By: #### T SH3 wRFLX, CBC, LIPID, CMP #### [facility] [address] [place] [address] [place] Globulin Calc (S) [Mass/Vol] Ordered By: PROVIDER TEMP on 05-10-2024 Globulin (S) [Mass/Vol] Serum globulin measurement by calculation (mass/volume) [facility] Glucose [Mass/volume] in Ser um or PlasmaOrdered By: PROVIDER TEMP on 05-10-2024 Glucose [Mass/Vol] 85 mg/dL Normal 70-100 [facility] Comment on above: ADA recommended refe rence rangeRandom Glucose Reference Range is dependent on time and content of last meal. Glucose of more than 200 mg/dL in a nonstressed, ambulatory subject supports the diagnosis of Diabetes Mellitus. Result Comment: [place] om Glucose Reference Range is dependent on time and content of last meal. Glucose of more than 200 mg/dL in a nonstressed, ambulatory subject supports the diagnosis of Diabetes Mellitus. ADA recommended reference range Performed By: #### T SH3 wRFLX, CBC, LIPID, CMP #### [address] Glucose [Mass/volume] in Uri ne by Test stripOrdered By: Katelyn Bartholomew on 05-10-2024 Glucose Test strip (U) [Mass/Vol] 300 mg/dL High [facility] Glucose Test strip (U) [Mass/Vol] Glucose [Mass/volume] in Urine by Test strip [facility] Hematocrit [Volume Fraction] of Blood by Automated countOrdered By: PROVIDER TEMP on 05-10-2024 Hematocrit (Bld) [Volume fraction] 43.3 % Normal 34.0-46.4 [facility] Comment on above: Performed By: #### T SH3 wRFLX, CBC, LIPID, CMP #### [address] Hemoglobin Test strip Ql (U) Ordered By: Katelyn Bartholomew on 05-10-2024 Hemoglobin Ql (U) Negative Negative [facility] Hemoglobin Ql (U) Hemoglobin [Presence ] in Urine by Test strip Negative [facility] Hemoglobin [Mass/volume] in BloodOrdered By: PROVIDER TEMP on 05-10-2024 Hemoglobin (Bld) [Mass/Vol] 14.0 g/dL Normal 11.8-15.4 [facility] Comment on above: Performed By: #### T SH3 wRFLX, CBC, LIPID, CMP #### [address] Hyaline casts [#/area] in Ur ine sediment by Automated countOrdered By: Katelyn Bartholomew on 05-10-2024 Hyaline casts Auto (Urine sed) [#/Area] None [LPF] 0-8 [facility] Hyaline casts Auto (Urine sed) [#/Area] Hyaline casts [#/area] in Urine sediment by Automated count 0-8 [facility] Ketones Test strip Ql (U)Ord ered By: Katelyn Bartholomew on 05-10-2024 Ketones Ql (U) Ketones [Presence] i n Urine by Test strip Negative [facility] Ketones [Presence] in Urine by Test stripOrdered By: Katelyn Bartholomew on 05-10-2024 Ketones Ql (U) Negative Normal Negative [facility] Comment on above: Order Comment: Name Collection Type:: Clean-Voided Midstream Performed By: #### A DDONUAPLUS #### [address] Laboratory - Microbiology an d Antimicrobial susceptibilityOrdered By: Katelyn Bartholomew on 05-10-2024 Bacteria identified Cx Nom (U) 2 Days [facility] Leukocyte esterase [Presence ] in Urine by Test stripOrdered By: Katelyn Bartholomew on 05-10-2024 Leukocyte esterase Test strip Ql (U) 2+ High Negative [facility] Comment on above: Order Comment: Name Collection Type:: Clean-Voided Midstream Performed By: #### A DDONUAPLUS #### [facility] [address] [place] [address] Leukocyte esterase Test strip Ql (U) Leukocyte esterase [Presence] in Urine by Test strip High Negative [facility] Leukocytes [#/area] in Urine sediment by Automated countOrdered By: Katelyn Bartholomew on 05-10-2024 WBC Auto (Urine sed) [#/Area] 10-19 [HPF] High 0-4 [facility] WBC Auto (Urine sed) [#/Area] Leukocytes [#/area] in Urine sediment by Automated count High 0-4 [facility] Leukocytes [#/volume] correc gilma for nucleated erythrocytes in Blood by Automated counOrdered By: PROVIDER TEMP on 05-10-2024 WBC corrected for nucl RBC Auto (Bld) [#/Vol] 11.7 10*3/uL High 3.8-11.6 [facility] Leukocytes [#/volume] in Blo od by Automated countOrdered By: PROVIDER TEMP on 05-10-2024 WBC (Bld) [#/Vol] 11.7 10*3/uL High 3.8-11.6 [facility] Comment on above: Performed By: #### T SH3 wRFLX, CBC, LIPID, CMP #### [facility] [address] [place] [address] Lymphocytes [#/volume] in Bl ood by Automated countOrdered By: PROVIDER TEMP on 05-10-2024 Lymphocytes (Bld) [#/Vol] 2.5 10*3/uL Normal 1.00-4.8 [facility] Comment on above: Performed By: #### T SH3 wRFLX, CBC, LIPID, CMP #### [facility] [address] [place] [address] Lymphocytes/100 leukocytes i n Blood by Automated countOrdered By: PROVIDER TEMP on 05-10-2024 Lymphocytes/100 WBC (Bld) 21.7 % Normal . [facility] Comment on above: Performed By: #### T SH3 wRFLX, CBC, LIPID, CMP #### [facility] [address] [place] [address] MCH [Entitic mass] by Automa gilma countOrdered By: PROVIDER TEMP on 05-10-2024 MCH (RBC) [Entitic mass] 30.0 pg Normal 24.7-34.3 [facility] Comment on above: Performed By: #### T SH3 wRFLX, CBC, LIPID, CMP #### [facility] [address] [place] [address] MCHC Auto (RBC) [Mass/Vol]Or dered By: PROVIDER TEMP on 05-10-2024 MCHC (RBC) [Mass/Vol] 32.4 g/dL 32.0-35.0 [facility] MCV [Entitic volume] by Auto mated countOrdered By: PROVIDER TEMP on 05-10-2024 MCV (RBC) [Entitic vol] 92.8 fL Normal 80-100 [facility] Comment on above: Performed By: #### T SH3 wRFLX, CBC, LIPID, CMP #### [facility] [address] [place] [address] [place] Monocyte distribution width [Entitic volume] in Blood by AutomatedOrdered By: PROVIDER TEMP on 05-10-2024 Monocyte distribution width Auto (Bld) [Entitic vol] 19.33 % 0.00-20.00 [facility] Monocyte distribution width Auto (Bld) [Entitic vol] Monocyte distribution width [Entitic volume] in Blood by Automated 0.00-20.00 [facility] Mucus [Presence] in Urine by AutomatedOrdered By: Katelyn Bartholomew on 05-10-2024 Mucus Auto Ql (U) Rare [LPF] [facility] Mucus Auto Ql (U) Mucus [Presence] in Urine by Automated [facility] Neutrophils [#/volume] in Bl ood by Automated countOrdered By: PROVIDER TEMP on 05-10-2024 Neutrophils (Bld) [#/Vol] 7.9 10*3/uL High 1.8-7.7 [facility] Comment on above: Performed By: #### T SH3 wRFLX, CBC, LIPID, CMP #### [facility] [address] Nitrite Test strip Ql (U)Ord ered By: Katelyn Bartholomew on 05-10-2024 Nitrite Ql (U) Negative Negative [facility] Nitrite Ql (U) Nitrite [Presence] i n Urine by Test strip Negative [facility] No Panel InformationOrdered By: PROVIDER TEMP on 05-10-2024 Estimated GFR (CKD-EPI) > 60.0 mL/Min [facility] Creatinine Clearance (Chem 51.63 [facility] Nucleated erythrocytes [Pres ence] in Blood by Automated countOrdered By: PROVIDER TEMP on 05-10-2024 Nucleated RBC Auto Ql (Bld) 0.0 /100{WBC} 0-0.5 [facility] Platelet mean volume [Entiti c volume] in Blood by Automated countOrdered By: PROVIDER TEMP on 05-10-2024 Platelet mean volume (Bld) [Entitic vol] 8.9 fL Normal 6.3-10.7 [facility] Comment on above: Performed By: #### T SH3 wRFLX, CBC, LIPID, CMP #### [facility] [address] [place] [address] [place] Platelets [#/volume] in Bloo d by Automated countOrdered By: PROVIDER TEMP on 05-10-2024 Platelets (Bld) [#/Vol] 273 10*3/uL Normal 150-450 [facility] Comment on above: Performed By: #### T SH3 wRFLX, CBC, LIPID, CMP #### [facility] [address] [place] [address] [place] Potassium [Moles/volume] in Serum or PlasmaOrdered By: PROVIDER TEMP on 05-10-2024 Potassium [Moles/Vol] 3.9 mmol/L Normal 3.5-5.1 [facility] Comment on above: Performed By: #### T SH3 wRFLX, CBC, LIPID, CMP #### [facility] [address] Protein Test strip (U) [Mass /Vol]Ordered By: Katelyn Bartholomew on 05-10-2024 Protein (U) [Mass/Vol] Negative Negative [facility] Protein (U) [Mass/Vol] Protein [Mass/vol ume] in Urine by Test strip Negative [facility] Protein [Mass/volume] in Ser um or PlasmaOrdered By: PROVIDER TEMP on 05-10-2024 Protein [Mass/Vol] 7.6 g/dL Normal 6.4-8.9 [facility] Comment on above: Performed By: #### T SH3 wRFLX, CBC, LIPID, CMP #### [facility] [address] Protein [Mass/Vol] Protein [Mass/volume ] in Serum or Plasma 6.4-8.9 [facility] Serum globulin measurement b y calculation (mass/volume)Ordered By: PROVIDER TEMP on 05-10-2024 Globulin (S) [Mass/Vol] 3.4 g/dL Normal [facility] Comment on above: Performed By: #### T SH3 wRFLX, CBC, LIPID, CMP #### [facility] [address] Serum or plasma albumin/glob ulin mass ratioOrdered By: PROVIDER TEMP on 05-10-2024 Albumin/Globulin [Mass ratio] 1.2 {ratio} Normal [facility] Comment on above: Performed By: #### T SH3 wRFLX, CBC, LIPID, CMP #### [facility] [address] Albumin/Globulin [Mass ratio] Serum or plasma albumin/globulin mass ratio [facility] Serum or plasma anion gap de terminationOrdered By: PROVIDER TEMP on 05-10-2024 Anion gap [Moles/Vol] 12.4 mmol/L Normal 6.0-15.0 [facility] Comment on above: Performed By: #### T SH3 wRFLX, CBC, LIPID, CMP #### [address] Sodium [Moles/volume] in Ser um or PlasmaOrdered By: PROVIDER TEMP on 05-10-2024 Sodium [Moles/Vol] 138 mmol/L Normal 136-145 [facility] Comment on above: Performed By: #### T SH3 wRFLX, CBC, LIPID, CMP #### [address] Specific gravity Test strip (U) [Rel density]Ordered By: Katelyn Bartholomew on 05-10-2024 Specific gravity (U) [Rel density] 1.004 1.001-1.03 0 [facility] Specific gravity (U) [Rel density] Specific gravity of Urine by Test strip 1.001-1.03 0 [facility] Troponin I High Sensitivityo n 05-10-2024 Troponin I High Sensitivity 3.5 pg/mL Normal 0.0-15.0 [facility] Comment on above: Result Comment: PERF ORMED BY: [place] [address] PATHOLOGIST ENERGY TECHNICIAN DAVID VELAZQUEZ M.D. Performed By: #### T SH3 wRFLX, CBC, LIPID, CMP #### [address] [place] [address] [place] Troponin I High Sensitivity 3.6 pg/mL Normal 0.0-15.0 [facility] Comment on above: Result Comment: PERF ORMED BY: [place] [address] PATHOLOGIST ENERGY TECHNICIAN DAVID VELAZQUEZ M.D. Performed By: #### T SH3 wRFLX, CBC, LIPID, CMP #### [facility] [address] [place] [address] Troponin I.cardiac [Mass/vol ume] in Serum or Plasma by Detection limit <= 0.01 ng/Ordered By: Katelyn Bartholomew on 05-10-2024 Troponin I.cardiac DL <= 0.01 ng/mL [Mass/Vol] 3.5 pg/mL 0.0-15.0 [facility] Troponin I.cardiac DL <= 0.01 ng/mL [Mass/Vol] Troponin I.cardiac [Mass/volume] in Serum or Plasma by Detection limit <= 0.01 ng/ 0.0-15.0 [facility] Urea nitrogen [Mass/volume] in Serum or PlasmaOrdered By: PROVIDER TEMP on 05-10-2024 Urea nitrogen [Mass/Vol] 8 mg/dL Normal 7-25 [facility] Comment on above: Performed By: #### T SH3 wRFLX, CBC, LIPID, CMP #### [facility] [address] [place] [address] Urine Cultureon 05-10-2024 Bacteria identified Cx Nom (U) <9,000 colonies/ml mixed bacterial skin contaminants 2 Days PERFORMED BY: [place] [address] PATHOLOGIST ENERGY TECHNICIAN DAVID VELAZQUEZ M.D. Normal [facility] Comment on above: Performed By: #### A DDONUAPLUS #### [facility] [address] [place] [address] Urine appearanceOrdered By: Katelyn Bartholomew on 05-10-2024 Appearance (U) Clear Normal Clear [facility] Comment on above: Order Comment: Name Collection Type:: Clean-Voided Midstream Performed By: #### A DDONUAPLUS #### [address] Urine cultureOrdered By: Alex Bartholomew on 05-10-2024 Bacteria identified Cx Nom (U) Urine culture [facility] Urobilinogen Test strip (U) [Mass/Vol]Ordered By: Katelyn Bartholomew on 05-10-2024 Urobilinogen (U) [Mass/Vol] Normal mg/dL Normal [facility] Urobilinogen (U) [Mass/Vol] Urobilinogen [Mass/volume] in Urine by Test strip Normal [facility] XR chest 2V*on 05-10-2024 XR chest 2V* [facility] [place] [address] [place] [address] XRay Report Signed Patient: Kym Briscoe MR#: [id number] 42 : 1955 Acct:[id number] Age/Sex: 68 / F ADM Date: 05/10/24 Loc: ER Room: Type: [facility] ER Attending Dr: Copies to: Kateyln Bartholomew APRN Ordering Provider: Katelyn Bartholomew APRN Date of Service: 05/10/24 XR/XR chest 2V*: Dizziness PA AND LATERAL CHEST: CLINICAL HISTORY: Dizziness and confusion COMPARISON: 02/10/2024 The lungs are hyperinflated. There is no focal parenchymal consolidation, effusion or pneumothorax. The cardiac, hilar and mediastinal silhouettes are within normal limits. There is no vascular c ongestion. The visualized bony thorax is intact. Mild endplate spurring is seen. XR/XR chest 2V* IMPRESSION: NO ACUTE CARDIOPULMONARY ABNORMALITY. Impression dictated by: Jayla Herr M.D.05/10/2024 6:16 PM Dictation Location: [place] [address] Transcribed By: CARON 05/10/241815 Dictated By: Jayla Herr MD 05/10/241814 Signed By: 05/10/241815 Normal [facility] pH Test strip (U)Ordered By: Katelyn Bartholomew on 05-10-2024 pH (U) pH of Urine by Test strip 5.0-9.0 [facility] pH of Urine by Test stripOrd ered By: Katelyn Bartholomew on 05-10-2024 pH (U) 6.5 [pH] Normal 5.0-9.0 [facility] Comment on above: Order Comment: Name Collection Type:: Clean-Voided Midstream Performed By: #### A DDONUAPLUS #### [facility] [address] Capillary blood glucose kavya urement by glucometer (mass/volume)Ordered By: Ragini Adams on 04-25-2024 Glucose [Mass/Vol] 137 mg/dL Normal [facility] Comment on above: Random Glucose Refer ence Range is dependent on time and content of last meal. Glucose of more than 200 mg/dL in a nonstressed, ambulatory subject supports the diagnosis of Diabetes Mellitus. Result Comment: [place] Glucose Reference Range is dependent on time and content of last meal. Glucose of more than 200 mg/dL in a nonstressed, ambulatory subject supports the diagnosis of Diabetes Mellitus. Performed By: #### T SH3 wRFLX, CBC, LIPID, CMP #### [facility] [address] Glucose Glucometer (BldC) [M ass/Vol]Ordered By: Ragini Adams on 04-25-2024 Glucose [Mass/Vol] Capillary blood gluc ose measurement by glucometer (mass/volume) [facility] Comment on above: Random Glucose Refer ence Range is dependent on time and content of last meal. Glucose of more than 200 mg/dL in a nonstressed, ambulatory subject supports the diagnosis of Diabetes Mellitus. Glucose Poct Glucometerson 1 Commemt1 Glu2: Cleaned Meter Normal [facility] Comment on above: Result Comment: PERF ORMED BY: [place] [address] PATHOLOGIST ENERGY TECHNICIAN DAVID VELAZQUEZ M.D. Performed By: #### T SH3 wRFLX, CBC, LIPID, CMP #### [facility] [address] No Panel InformationOrdered By: Ragini Adams on 04-25-2024 Miscellaneous Pathology Test See comment [facility] Comment on above: See report. Scanned copy available in EMR. Bedside Glucose Comment Glu2: cleaned meter [facility] Pathology Request for Lab Co rpon 04-25-2024 Pathology Request for Lab Kristina Normal [facility] Comment on above: Order Comment: Reaso n for Exam Essential hypertension Reason for Exam Mixed hyperlipidemia;Essential hypertension Reason for Exam Diabetes;Mixed hyperlipidemia;Essential hypertension Result Comment: See report. Scanned copy available in EMR. PERFORMED BY: [place] [address] PATHOLOGIST ENERGY TECHNICIAN DAVID VELAZQUEZ M.D. Performed By: #### T SH3 wRFLX, CBC, LIPID, CMP #### [address] MR head/brain wo conon 04-13 MR head/brain wo con [facility] [place] [address] [place] [address] MRI Report Signed Patient: Kym Briscoe MR#: [id number] 42 : 1955 Acct:[id number] Age/Sex: 68 / F ADM Date: 04/12/24 Loc: MR Room: Type: [facility] Attending Dr: Vicky BOLDEN Copies to: YUAN Nava Ordering Provider: YUAN Nava Date of Service: 04/12/24 MR/MR head/brain wo con: K86.9 MR head/brain wo con 04/12/2024 7:55 PM SIGN AND SYMPTOMS: Confusion, pancreatic lesion PROTOCOL: Multiplanar multisequence MR images of brain were obtained without IV contrast COMPARISON: 10/22/2023 FINDINGS: Extra axial spaces: There is age-related cortical atrophy. There is more focal atrophy along the medial aspect of the temporal lobes bilaterally. Hemorrhage: None. Ventricular system: Within normal limits. Basal cisterns: Within normal limits and not effaced. Cerebral parenchyma: Periventricular and subcortical white matter T2 and FLAIR hyperintense foci are noted consistent with chronic microvascular ischemic change. Midline shift: None.. Cerebellum: Within normal limits. Brainstem: T2 and FLAIR hyperintense signal is noted in the pontine white matter. OTHER: Calvarium: Normal marrow signal. Vascular system: Satisfactory flow voids within the anterior and posterior circulation. Visualized Paranasal sinuses: Within normal limits. Visualized Orbits: Within normal limits. Visualized upper cervical spine: Within normal limits. Sella and skull base: Within normal limits. MR/MR head/brain wo con IMPRESSION: No acute intracranial pathology. There is age-related cortical atrophy. There is more focal atrophy along the medial aspect of the temporal lobes bilaterally. Chronic microvascular ischemic changes are noted as above. Impression dictated by: Alexei Cedeno M.D.04/13/2024 12:14 AM Dictation Location: [place] [address] Transcribed By: [facility] 04/13/2413 Dictated By: Alexei Cedeno II, MD 04/13/24 0010 Signed By: 04/13/24 001 Normal [facility] Creatinine (Bld) [Mass/Vol]O rdered By: Vicky Oshea on 04-12-2024 Creatinine [Mass/Vol] Whole blood creati nine measurement 0.6-1.3 [facility] Comment on above: ER/ESD physician is notified/shown all ISTAT results.Critical values may be confirmed by laboratory testing ifdeemed necessary by ER attending doctor. ISTAT XRay CREon 04-12-2024 ISTAT GFR > 60.0 Normal [facility] Comment on above: Result Comment: PERF ORMED BY: [place] [address] PATHOLOGIST ENERGY TECHNICIAN DAVID VELAZQUEZ M.D. Performed By: #### I SCRE #### [address] No Panel InformationOrdered By: Vicky Oshea on 04-12-2024 Bedside Estimated GFR (eGFR) > 60.0 [facility] Whole blood creatinine measu rementOrdered By: Vicky Oshea on 04-12-2024 Creatinine [Mass/Vol] 0.8 mg/dL Normal 0.6-1.3 [facility] Comment on above: ER/ESD physician is notified/shown all ISTAT results.Critical values may be confirmed by laboratory testing ifdeemed necessary by ER attending doctor. Result Comment: ER/E SD physician is notified/shown all ISTAT results. Critical values may be confirmed by laboratory testing if deemed necessary by ER attending doctor. Performed By: #### I SCRE #### [address] Capillary blood glucose kavya urement by glucometer (mass/volume)Ordered By: Vicky Oshea on 03-23-2024 Glucose [Mass/Vol] 112 mg/dL Normal [facility] Comment on above: Random Glucose Refer ence Range is dependent on time and content of last meal. Glucose of more than 200 mg/dL in a nonstressed, ambulatory subject supports the diagnosis of Diabetes Mellitus. Result Comment: [place] Glucose Reference Range is dependent on time and content of last meal. Glucose of more than 200 mg/dL in a nonstressed, ambulatory subject supports the diagnosis of Diabetes Mellitus. PERFORMED BY: [place] [address] PATHOLOGIST ENERGY TECHNICIAN DAVID VELAZQUEZ M.D. Performed By: #### T SH3 wRFLX, CBC, LIPID, CMP #### [address] Glucose Glucometer (BldC) [M ass/Vol]Ordered By: Vicky Oshea on 03-23-2024 Glucose [Mass/Vol] Capillary blood gluc ose measurement by glucometer (mass/volume) [facility] Comment on above: Random Glucose Refer ence Range is dependent on time and content of last meal. Glucose of more than 200 mg/dL in a nonstressed, ambulatory subject supports the diagnosis of Diabetes Mellitus. PET tumor init tx strat sb-m ton 03-23-2024 PET tumor init tx strat sb-mt [facility] [place] [address] [place] [address] Nuclear Medicine Report Signed Patient: Kym Briscoe MR#: [id number] 42 : 1955 Acct:[id number] Age/Sex: 68 / F ADM Date: 03/23/24 Loc: Room: Type: [facility] Attending Dr: Vicky BOLDEN Copies to: Bassam Mondragon Jr, YUAN Rubi Ordering Provider: YUAN Nava Date of Service: 03/23/24 PET/PET tumor init tx strat sb-mt: Pulmonary nodule;Abnormal abdominal CT scan PET/CT FUSION IMAGING CLINICAL INFORMATION: Lung nodule COMPARISON : CT chest 03/02/2024. TECHNIQUE: Noncontrasted CT scan from the base of the skull to the upper thigh followed by PET imaging. Multiplanar PET/CT fusion images. Blood Glucose : 112 mg/dL The F-18 FDG 10.71mCi. FINDINGS: Neck: No abnormal activity. Chest:The dominant nodule involving the left lower lobe is FDG avid, SUV max of 5. The additional smaller nodules are too small for PET CT characterization. No abnormal activity is seen involving the mediastinum or hilar regions. Abdomen/pelvis: FDG avid lesion involving the pancreatic neck region, SUV max of 3.7. Adjacent periportal/portacaval FDG avid lymphadenopathy, SUV max 4.6. Diffuse colonic activity likely related to the patient's metformin use. Soft tissue/bones: No abnormal activity. CT findings: No pneumothorax. Advanced emphysematous changes. No pericardial or pleural effusions. Calcified right hilar and subcarinal lymph nodes. No free air or free fluid. Sigmoid diverticulosis. PET/PET tumor init tx strat sb-mt IMPRESSION: 1. Abnormal activity is seen involving the pancreatic neck suspicious for underlying pancreatic lesion. This can be further evaluated by endoscopic ultrasound. 2. FDG avid periportal/portacaval lymph nodes suspicious for local metastatic disease. 3. The dominant nodule seen involving the left lower lobe is FDG avid suspicious for metastatic disease. The additional smaller nodules are too small for PET CT characterization and CT follow-up is recommended. 4. Diffuse colonic activity likely related to the patient's metformin use. Underlying colonic malignancy cannot BE excluded. Impression dictated by: Bassam Mondragon Jr., D.O.03/23/2024 1:25 PM Dictation Location: [place] [address] Transcribed By: [facility] 03/23/24 1325 Dictated By: Bassam Mondragon Jr, DO 03/23/24 1311 Signed By: 03/23/24 1325 Normal [facility] CT chest wo conon 03-02-2024 CT chest wo con [facility] Main [place] [address] [place] [id number] Scan Report Signed Patient: Kym Briscoe MR#: [id number] 42 : 1955 Acct:[id number] Age/Sex: 68 / F ADM Date: 03/02/24 Loc: CT Room: Type: [facility] Attending Dr: Vicky BOLDEN Copies to: YUAN Nava Ordering Provider: YUAN Nava Date of Service: 03/02/24 CT/CT chest wo con: Pulmonary nodule, right CT CHEST WITHOUT CONTRAST COMPARISON: 11/21/2023 and chest x-ray 02/10/2024 CLINICAL DATA: Follow-up pulmonary nodularity Spiral images were obtained through the chest without contrast. Images were reviewed using both narrow and wide window settings. This CT exam was performed using one or more following dose reduction techniques: Automated exposure control, adjustment of the mA and/or kV according to patient size, or use of iterative reconstruction technique. The heart is within normal limits for size. There is minimal pericardial fluid or thickening. There is coronary artery disease. There is mild plaque at the aorta and proximal great vessels. There are similar small anterior pericardial lymph nodes. There is no developing adenopathy. Subcarinal and right hilar granulomas are present. There is multiple old anterior right rib fractures. There are mild degenerative changes involving the spine. There is obstructive lung disease with airspace lucencies. There is a similar stellate area at the right apex with a central 4 mm the component that has not significantly changed. A noncalcified nodular area in the left infrahilar region medially has enlarged from 6 mm to 1 cm. Several additional tiny irregular and nodular areas seen bilaterally have remained stable. There is no developing consolidation, pleural effusion or pneumothorax. Limited cuts through the upper abdomen show a large left renal cyst. There is atherosclerotic disease. CT/CT chest wo con IMPRESSION: OBSTRUCTIVE LUNG DISEASE. CONTINUED BILATERAL PULMONARY NODULARITY WITH INTERVAL INCREASE IN SIZE OF THE NODULE IN THE LEFT INFRAHILAR REGION. CONTINUED FOLLOW-UP IS RECOMMENDED. THE SIZE OF THE SOFT TISSUE COMPONENT MAY PRECLUDE DIAGNOSTIC PET IMAGING. Impression dictated by: Jayla Herr M.D.03/02/2024 5:43 PM Dictation Location: [facility]--02 Transcribed By: CARON 03/02/24 174 Dictated By: Jayla Herr MD 03/02/241731 Signed By: 03/02/24 174 Normal [facility] No Panel InformationOrdered By: Kaycee Negro on 02-15-2024 Quick Strep (POC) [facility] XR chest 2V*on 02-10-2024 XR chest 2V* [facility] Main [place] [address] [place] [address] XRay Report Signed Patient: Kym Briscoe MR#: [id number] 42 : 1955 Acct:[id number] Age/Sex: 68 / F ADM Date: 02/10/24 Loc: XD Room: Type: [facility] Attending Dr: Vicky BOLDEN Copies to: YUAN Nava Ordering Provider: YUAN Nava Date of Service: 02/10/24 XR/XR chest 2V*: Cervical pain;Thoracic spine pain XR chest 2V* 02/10/2024 3:46 PM SIGNS AND SYMPTOMS: Fall, cough, back pain PROTOCOL: Frontal and lateral radiographs of the chest COMPARISON: 10/22/2023 FINDINGS: The trachea is midline. Atherosclerotic changes are noted in the thoracic aorta. The heart and mediastinal structures are within normal limits. The lung parenchyma is clear. The bony thorax is intact. Degenerative changes are noted in the shoulders and thoracic spine. XR/XR chest 2V* IMPRESSION: No acute cardiopulmonary pathology. Impression dictated by: Alexei Cedeno M.D.02/10/2024 6:30 PM Dictation Location[facility] Transcribed By: CARON 02/10/241829 Dictated By: Alexei Cedeno II, MD 02/10/24 182 Signed By: 02/10/241829 Normal [facility] XR ribs BI 3Von 02-10-2024 XR ribs BI 3V [facility] Main [address] [address] XRay Report Signed Patient: Kym Briscoe MR#: [id number] 42 : 1955 Acct:[id number] Age/Sex: 68 / F ADM Date: 02/10/24 Loc: XD Room: Type: [facility] Attending Dr: Vicky BOLDEN Copies to: YUAN Nava Ordering Provider: YUAN Nava Date of Service: 02/10/24 XR/XR ribs BI 3V: History of rib fracture XR ribs BI 3V 02/10/2024 3:46 PM SIGNS AND SYMPTOMS: Fall, cough, back pain History of rib fracture PROTOCOL: Frontal radiograph of the chest with oblique radiographs of the bilateral ribs COMPARISON: 02/10/2024 FINDINGS: The trachea is midline. Atherosclerotic changes are present in the aortic arch. The heart and mediastinal structures are within normal limits. The lung parenchyma is clear. The bony thorax is intact. Degenerative changes are noted in the thoracic spine and shoulders. No acute displaced rib fracture. There is redemonstration of remote healed or healing right anterior fourth through sixth rib fractures. XR/XR ribs BI 3V IMPRESSION: No acute cardiopulmonary pathology. No acute displaced rib fracture. There is redemonstration of remote healed or healing right anterior fourth through sixth rib fractures. Impression dictated by: Alexei Cedeno M.D.02/10/2024 7:56 PM Dictation Location: [place] [address] Transcribed By: [facility] 02/10/241955 Dictated By: Alexei Cedeno II, MD 02/10/241952 Signed By: 02/10/241955 Normal [facility] XR thoracic spine 3V*on 01-16 XR thoracic spine 3V* [facility] Main [address] [address] XRay Report Signed Patient: Kym Briscoe MR#: [id number] 42 : 1955 Acct:[id number] Age/Sex: 68 / F ADM Date: 02/10/24 Loc: XD Room: Type: [facility] Attending Dr: Vicky BOLDEN Copies to: YUAN Nava Ordering Provider: YUAN Nava Date of Service: 02/10/24 XR/XR thoracic spine 3V*: Cervical pain;Thoracic spine pain XR thoracic spine 3V* 02/10/2024 3:46 PM SIGNS AND SYMPTOMS: Fall with cough and back pain PROTOCOLS: Frontal and lateral radiographs of the thoracic spine COMPARISON: 02/10/2024 FINDINGS: There is a levoconvex curvature of the thoracic spine. Atherosclerotic changes are noted in the thoracic aorta. There is moderate disc height loss in the mid to lower thoracic spine with anterior osteophyte formation. No evidence of fracture or bony destructive lesion. There is mild to moderate disc height loss in the cervical spine with anterior osteophyte formation partially visualized. Atherosclerotic changes are noted in the carotid bifurcations. XR/XR thoracic spine 3V* IMPRESSION: No fracture or dislocation. Degenerative changes are noted in the thoracic spine, greatest in the mid and lower thoracic spine. Impression dictated by: Alexei Cedeno M.D.02/10/2024 8:08 PM Dictation Location: [place] [address] Transcribed By: [facility] 02/10/242007 Dictated By: Alexei Cedeno II, MD 02/10/242005 Signed By: 02/10/242007 Normal [facility] Alanine aminotransferase [En zymatic activity/volume] in Serum or PlasmaOrdered By: Vicky Oshea on 02-09-2024 ALT [Catalytic activity/Vol] 15 U/L Normal [facility] Comment on above: Order Comment: Reaso n for Exam Essential hypertension Reason for Exam Mixed hyperlipidemia;Essential hypertension Reason for Exam Diabetes;Mixed hyperlipidemia;Essential hypertension Performed By: #### T SH3 wRFLX, CBC, LIPID, CMP #### [facility] [address] [place] [address] Albumin [Mass/volume] in Ser um or Plasma by Bromocresol green (BCG) dye binding methoOrdered By: Vicky Oshea on 02-09-2024 Albumin BCG dye [Mass/Vol] 4.4 g/dL 3.5-5.7 [facility] Alkaline phosphatase [Enzyma tic activity/volume] in Serum or PlasmaOrdered By: Vicky Oshea on 02-09-2024 ALP [Catalytic activity/Vol] 98 U/L Normal 34-104 [facility] Comment on above: Order Comment: Reaso n for Exam Essential hypertension Reason for Exam Mixed hyperlipidemia;Essential hypertension Reason for Exam Diabetes;Mixed hyperlipidemia;Essential hypertension Performed By: #### T SH3 wRFLX, CBC, LIPID, CMP #### [facility] [address] [place] [address] Aspartate aminotransferase [ Enzymatic activity/volume] in Serum or PlasmaOrdered By: Vicky Oshea on 02-09-2024 AST [Catalytic activity/Vol] 28 U/L Normal 13-39 [facility] Comment on above: Order Comment: Reaso n for Exam Essential hypertension Reason for Exam Mixed hyperlipidemia;Essential hypertension Reason for Exam Diabetes;Mixed hyperlipidemia;Essential hypertension Performed By: #### T SH3 wRFLX, CBC, LIPID, CMP #### [facility] [address] [place] [address] Automated basophil %Ordered By: Vicky Oshea on 02-09-2024 Basophils/100 WBC (Bld) 0.5 % Normal . [facility] Comment on above: Order Comment: Reaso n for Exam Essential hypertension Performed By: #### T SH3 wRFLX, CBC, LIPID, CMP #### [facility] [address] [place] [address] Automated basophil countOrde red By: Vicky Oshea on 02-09-2024 Basophils (Bld) [#/Vol] 0.1 10*3/uL Normal 0.0-0.2 [facility] Comment on above: Order Comment: Reaso n for Exam Essential hypertension Result Comment: PERF ORMED BY: [place] [address] PATHOLOGIST ENERGY TECHNICIAN DAVID VELAZQUEZ M.D. Performed By: #### T SH3 wRFLX, CBC, LIPID, CMP #### [facility] [address] [place] [address] Automated blood monocyte cou ntOrdered By: Vicky Velazquezc on 02-09-2024 Monocytes (Bld) [#/Vol] 0.7 10*3/uL Normal 0.0-0.8 [facility] Comment on above: Order Comment: Reaso n for Exam Essential hypertension Performed By: #### T SH3 wRFLX, CBC, LIPID, CMP #### [facility] [address] Automated eosinophil %Ordere d By: Vicky Velazquezc on 02-09-2024 Eosinophils/100 WBC (Bld) 1.3 % Normal . [facility] Comment on above: Order Comment: Reaso n for Exam Essential hypertension Performed By: #### T SH3 wRFLX, CBC, LIPID, CMP #### [facility] [address] Automated eosinophil countOr dered By: Vicky Oshea on 02-09-2024 Eosinophils (Bld) [#/Vol] 0.1 10*3/uL Normal 0.0-0.45 [facility] Comment on above: Order Comment: Reaso n for Exam Essential hypertension Performed By: #### T SH3 wRFLX, CBC, LIPID, CMP #### [facility] [address] [place] [address] Automated monocyte %Ordered By: Vicky Oshea on 02-09-2024 Monocytes/100 WBC (Bld) 5.6 % Normal . [facility] Comment on above: Order Comment: Reaso n for Exam Essential hypertension Performed By: #### T SH3 wRFLX, CBC, LIPID, CMP #### [facility] [address] Automated neutrophil %Ordere d By: Vicky Velazquezc on 02-09-2024 Neutrophils/100 WBC (Bld) 65.6 % Normal . [facility] Comment on above: Order Comment: Reaso n for Exam Essential hypertension Performed By: #### T SH3 wRFLX, CBC, LIPID, CMP #### [facility] [address] Bilirubin.total [Mass/volume ] in Serum or PlasmaOrdered By: Vicky Velazquezc on 02-09-2024 Bilirubin [Mass/Vol] 0.5 mg/dL Normal 0.3-1.0 [facility] Comment on above: Order Comment: Reaso n for Exam Essential hypertension Reason for Exam Mixed hyperlipidemia;Essential hypertension Reason for Exam Diabetes;Mixed hyperlipidemia;Essential hypertension Performed By: #### T SH3 wRFLX, CBC, LIPID, CMP #### [facility] [address] [place] [address] [place] Calcium [Mass/volume] in Ser um or PlasmaOrdered By: Vicky Spasic on 02-09-2024 Calcium [Mass/Vol] 9.7 mg/dL Normal 8.6-10.3 [facility] Comment on above: Order Comment: Reaso n for Exam Essential hypertension Reason for Exam Mixed hyperlipidemia;Essential hypertension Reason for Exam Diabetes;Mixed hyperlipidemia;Essential hypertension Performed By: #### T SH3 wRFLX, CBC, LIPID, CMP #### [facility] [address] [place] [id number] [place] Carbon dioxide, total [Moles /volume] in Serum or PlasmaOrdered By: Vicky Spasic on 02-09-2024 CO2 [Moles/Vol] 25.4 mmol/L Normal 21.0-31.0 [facility] Comment on above: Order Comment: Reaso n for Exam Essential hypertension Reason for Exam Mixed hyperlipidemia;Essential hypertension Reason for Exam Diabetes;Mixed hyperlipidemia;Essential hypertension Performed By: #### T SH3 wRFLX, CBC, LIPID, CMP #### [facility] [address] [place] [address] [place] Chloride [Moles/volume] in S tiffanie or PlasmaOrdered By: Vicky Spasic on 02-09-2024 Chloride [Moles/Vol] 106 mmol/L Normal 98-107 [facility] Comment on above: Order Comment: Reaso n for Exam Essential hypertension Reason for Exam Mixed hyperlipidemia;Essential hypertension Reason for Exam Diabetes;Mixed hyperlipidemia;Essential hypertension Performed By: #### T SH3 wRFLX, CBC, LIPID, CMP #### [facility] [address] [place] [address] [place] Cholesterol [Mass/volume] in Serum or PlasmaOrdered By: Vicky Spasic on 02-09-2024 Cholesterol [Mass/Vol] 221 mg/dL High 140-200 [facility] Comment on above: Chol less than 200 m g/dl low riskChol 201-239 mg/dl borderline riskChol 240 mg/dl and greater high risk Order Comment: Reaso n for Exam Essential hypertension Reason for Exam Mixed hyperlipidemia;Essential hypertension Reason for Exam Diabetes;Mixed hyperlipidemia;Essential hypertension Result Comment: Chol less than 200 mg/dl low risk Chol 201-239 mg/dl borderline risk Chol 240 mg/dl and greater high risk Performed By: #### T SH3 wRFLX, CBC, LIPID, CMP #### [facility] [address] Cholesterol in LDL Calc [Mas s/Vol]Ordered By: Vicky sOhea on 02-09-2024 Cholesterol in LDL [Mass/Vol] 149 mg/dL High 0-100 [facility] Comment on above: LDL ATP III CLASSIFI CATIONLDL less than 100 mg/dL OptimalLDL 100-129 mg/dL Near or above optimalLDL 130-159 mg/dL Borderline highLDL 160-189 mg/dL HighLDL greater than 189 mg/dL Very high Cholesterol in VLDL Calc [Ma ss/Vol]Ordered By: Vicky Oshea on 02-09-2024 Cholesterol in VLDL [Mass/Vol] 38 mg/dL [facility] Complete Blood Count Auto Di ffon 02-09-2024 Mean Corpuscular HGB Conc 32.4 g/dL Normal 32.0-35.0 [facility] Comment on above: Order Comment: Reaso n for Exam Essential hypertension Performed By: #### T SH3 wRFLX, CBC, LIPID, CMP #### [facility] [address] [place] [id number] [facility] NRBC% 0.1 /100{WBC} Normal 0-0.5 [facility] Comment on above: Order Comment: Reaso n for Exam Essential hypertension Performed By: #### T SH3 wRFLX, CBC, LIPID, CMP #### [facility] [address] [place] [address] [place] Comprehensive Metabolic Pane margarita 02-09-2024 Albumin [Mass/Vol] 4.4 g/dL Normal 3.5-5.7 [facility] Comment on above: Order Comment: Reaso n for Exam Essential hypertension Reason for Exam Mixed hyperlipidemia;Essential hypertension Reason for Exam Diabetes;Mixed hyperlipidemia;Essential hypertension Performed By: #### T SH3 wRFLX, CBC, LIPID, CMP #### [facility] [address] GFR/1.73 sq M.predicted MDRD (S/P/Bld) [Vol rate/Area] mL/min/{1.73_m2} Normal [facility] Comment on above: Order Comment: Reaso n for Exam Essential hypertension Reason for Exam Mixed hyperlipidemia;Essential hypertension Reason for Exam Diabetes;Mixed hyperlipidemia;Essential hypertension Performed By: #### T SH3 wRFLX, CBC, LIPID, CMP #### [facility] [address] [place] [address] Creatinine [Mass/volume] in Serum or PlasmaOrdered By: Vicky Oshea on 02-09-2024 Creatinine [Mass/Vol] 0.74 mg/dL Normal 0.60-1.20 [facility] Comment on above: Order Comment: Reaso n for Exam Essential hypertension Reason for Exam Mixed hyperlipidemia;Essential hypertension Reason for Exam Diabetes;Mixed hyperlipidemia;Essential hypertension Performed By: #### T SH3 wRFLX, CBC, LIPID, CMP #### [facility] [address] [place] [address] Erythrocyte distribution wid th [Ratio] by Automated countOrdered By: Vicky Oshea on 02-09-2024 Erythrocyte distribution width (RBC) [Ratio] 15.0 % Normal 11.9-15.3 [facility] Comment on above: Order Comment: Reaso n for Exam Essential hypertension Performed By: #### T SH3 wRFLX, CBC, LIPID, CMP #### [facility] [address] [place] [address] [place] Erythrocytes [#/volume] in B lood by Automated countOrdered By: Vicky Oshea on 02-09-2024 RBC (Bld) [#/Vol] 4.45 10*6/uL Normal 3.60-5.00 [facility] Comment on above: Order Comment: Reaso n for Exam Essential hypertension Performed By: #### T SH3 wRFLX, CBC, LIPID, CMP #### [facility] [address] [place] [address] [place] Glucose [Mass/volume] in Ser um or PlasmaOrdered By: Vicky Oshea on 02-09-2024 Glucose [Mass/Vol] 127 mg/dL High 70-100 [facility] Comment on above: ADA recommended refe rence rangeRandom Glucose Reference Range is dependent on time and content of last meal. Glucose of more than 200 mg/dL in a nonstressed, ambulatory subject supports the diagnosis of Diabetes Mellitus. Order Comment: Reaso n for Exam Essential hypertension Reason for Exam Mixed hyperlipidemia;Essential hypertension Reason for Exam Diabetes;Mixed hyperlipidemia;Essential hypertension Result Comment: [place] om Glucose Reference Range is dependent on time and content of last meal. Glucose of more than 200 mg/dL in a nonstressed, ambulatory subject supports the diagnosis of Diabetes Mellitus. ADA recommended reference range Performed By: #### T SH3 wRFLX, CBC, LIPID, CMP #### [facility] [address] [place] [address] [place] Hematocrit [Volume Fraction] of Blood by Automated countOrdered By: Vicky Oshea on 02-09-2024 Hematocrit (Bld) [Volume fraction] 42.5 % Normal 34.0-46.4 [facility] Comment on above: Order Comment: Reaso n for Exam Essential hypertension Performed By: #### T SH3 wRFLX, CBC, LIPID, CMP #### [facility] [address] [place] [address] [place] Hemoglobin [Mass/volume] in BloodOrdered By: Vicky Oshea on 02-09-2024 Hemoglobin (Bld) [Mass/Vol] 13.8 g/dL Normal 11.8-15.4 [facility] Comment on above: Order Comment: Reaso n for Exam Essential hypertension Performed By: #### T SH3 wRFLX, CBC, LIPID, CMP #### [facility] [address] [place] [address] [place] Leukocytes [#/volume] correc gilma for nucleated erythrocytes in Blood by Automated counOrdered By: Vicky Oshea on 02-09-2024 WBC corrected for nucl RBC Auto (Bld) [#/Vol] 11.5 10*3/uL 3.8-11.6 [facility] Leukocytes [#/volume] in Blo od by Automated countOrdered By: Vicky Oshea on 02-09-2024 WBC (Bld) [#/Vol] 11.5 10*3/uL Normal 3.8-11.6 [facility] Comment on above: Order Comment: Reaso n for Exam Essential hypertension Performed By: #### T SH3 wRFLX, CBC, LIPID, CMP #### [facility] [address] [place] [address] [facility] Lipid Panelon 02-09-2024 LDL Cholesterol,Calculated 149 mg/dL High 0-100 [facility] Comment on above: Order Comment: Reaso n for Exam Essential hypertension Reason for Exam Mixed hyperlipidemia;Essential hypertension Reason for Exam Diabetes;Mixed hyperlipidemia;Essential hypertension Result Comment: LDL ATP III CLASSIFICATION LDL less than 100 mg/dL Optimal LDL 100-129 mg/dL Near or above optimal LDL 130-159 mg/dL Borderline high LDL 160-189 mg/dL High LDL greater than 189 mg/dL Very high Performed By: #### T SH3 wRFLX, CBC, LIPID, CMP #### [facility] [address] [place] [id number] [facility] Triglyceride w/Reflex 192 mg/dL High 0-149 [facility] Comment on above: Order Comment: Reaso n for Exam Essential hypertension Reason for Exam Mixed hyperlipidemia;Essential hypertension Reason for Exam Diabetes;Mixed hyperlipidemia;Essential hypertension Result Comment: TRIG ATP III CLASSIFICATION TRIG less than 150 mg/dL Normal TRIG 150-199 mg/dL Borderline high TRIG 200-500 mg/dL High TRIG greater than 500 mg/dL Very high Standard traceable to the Center for Disease Conrtrol and Prevention (CDC) test method. Performed By: #### T SH3 wRFLX, CBC, LIPID, CMP #### [facility] [address] [place] [id number] [facility] VLDL CHOLESTEROL 38 mg/dL Normal [facility] Comment on above: Order Comment: Reaso n for Exam Essential hypertension Reason for Exam Mixed hyperlipidemia;Essential hypertension Reason for Exam Diabetes;Mixed hyperlipidemia;Essential hypertension Performed By: #### T SH3 wRFLX, CBC, LIPID, CMP #### [facility] [address] [place] [address] [place] Lymphocytes [#/volume] in Bl ood by Automated countOrdered By: Vicky Oshea on 02-09-2024 Lymphocytes (Bld) [#/Vol] 3.1 10*3/uL Normal 1.00-4.8 [facility] Comment on above: Order Comment: Reaso n for Exam Essential hypertension Performed By: #### T SH3 wRFLX, CBC, LIPID, CMP #### [place] [address] [place] Lymphocytes/100 leukocytes i n Blood by Automated countOrdered By: Vicky Oshea on 02-09-2024 Lymphocytes/100 WBC (Bld) 27.0 % Normal . [facility] Comment on above: Order Comment: Reaso n for Exam Essential hypertension Performed By: #### T SH3 wRFLX, CBC, LIPID, CMP #### [place] [address] [place] MCH [Entitic mass] by Automa gilma countOrdered By: Vicky Oshea on 02-09-2024 MCH (RBC) [Entitic mass] 30.9 pg Normal 24.7-34.3 [facility] Comment on above: Order Comment: Reaso n for Exam Essential hypertension Performed By: #### T SH3 wRFLX, CBC, LIPID, CMP #### [address] MCHC Auto (RBC) [Mass/Vol]Or dered By: Vicky Oshea on 02-09-2024 MCHC (RBC) [Mass/Vol] 32.4 g/dL 32.0-35.0 [facility] MCV [Entitic volume] by Auto mated countOrdered By: Vicky Oshea on 02-09-2024 MCV (RBC) [Entitic vol] 95.5 fL Normal 80-100 [facility] Comment on above: Order Comment: Reaso n for Exam Essential hypertension Performed By: #### T SH3 wRFLX, CBC, LIPID, CMP #### [facility] [address] [place] [address] [place] Neutrophils [#/volume] in Bl ood by Automated countOrdered By: Vicky Oshea on 02-09-2024 Neutrophils (Bld) [#/Vol] 7.6 10*3/uL Normal 1.8-7.7 [facility] Comment on above: Order Comment: Reaso n for Exam Essential hypertension Performed By: #### T SH3 wRFLX, CBC, LIPID, CMP #### [facility] [address] No Panel InformationOrdered By: Vicky Oshea on 02-09-2024 Estimated GFR (CKD-EPI) > 60.0 mL/Min [facility] Creatinine Clearance (Chem N/A [facility] Nucleated erythrocytes [Pres ence] in Blood by Automated countOrdered By: Vicky Oshea on 02-09-2024 Nucleated RBC Auto Ql (Bld) 0.1 /100{WBC} 0-0.5 [facility] Platelet mean volume [Entiti c volume] in Blood by Automated countOrdered By: Vicky Oshea on 02-09-2024 Platelet mean volume (Bld) [Entitic vol] 9.3 fL Normal 6.3-10.7 [facility] Comment on above: Order Comment: Reaso n for Exam Essential hypertension Performed By: #### T SH3 wRFLX, CBC, LIPID, CMP #### [facility] [address] [place] [address] [place] Platelets [#/volume] in Bloo d by Automated countOrdered By: Vicky Oshea on 02-09-2024 Platelets (Bld) [#/Vol] 254 10*3/uL Normal 150-450 [facility] Comment on above: Order Comment: Reaso n for Exam Essential hypertension Performed By: #### T SH3 wRFLX, CBC, LIPID, CMP #### [facility] [address] [place] [id number] [place] Potassium [Moles/volume] in Serum or PlasmaOrdered By: Vicky Oshea on 02-09-2024 Potassium [Moles/Vol] 3.8 mmol/L Normal 3.5-5.1 [facility] Comment on above: Order Comment: Reaso n for Exam Essential hypertension Reason for Exam Mixed hyperlipidemia;Essential hypertension Reason for Exam Diabetes;Mixed hyperlipidemia;Essential hypertension Performed By: #### T SH3 wRFLX, CBC, LIPID, CMP #### [facility] [address] Protein [Mass/volume] in Ser um or PlasmaOrdered By: Vicky Oshea on 02-09-2024 Protein [Mass/Vol] 7.1 g/dL Normal 6.4-8.9 [facility] Comment on above: Order Comment: Reaso n for Exam Essential hypertension Reason for Exam Mixed hyperlipidemia;Essential hypertension Reason for Exam Diabetes;Mixed hyperlipidemia;Essential hypertension Performed By: #### T SH3 wRFLX, CBC, LIPID, CMP #### [facility] [address] Serum globulin measurement b y calculation (mass/volume)Ordered By: Vicky Oshea on 02-09-2024 Globulin (S) [Mass/Vol] 2.7 g/dL [facility] Comment on above: Order Comment: Reaso n for Exam Essential hypertension Reason for Exam Mixed hyperlipidemia;Essential hypertension Reason for Exam Diabetes;Mixed hyperlipidemia;Essential hypertension Performed By: #### T SH3 wRFLX, CBC, LIPID, CMP #### [facility] [address] Serum or plasma albumin/glob ulin mass ratioOrdered By: Vicky Oshea on 02-09-2024 Albumin/Globulin [Mass ratio] 1.6 {ratio} [facility] Comment on above: Order Comment: Reaso n for Exam Essential hypertension Reason for Exam Mixed hyperlipidemia;Essential hypertension Reason for Exam Diabetes;Mixed hyperlipidemia;Essential hypertension Performed By: #### T SH3 wRFLX, CBC, LIPID, CMP #### [facility] [address] [place] [id number] [place] Serum or plasma anion gap de terminationOrdered By: Vicky Oshea on 02-09-2024 Anion gap [Moles/Vol] 12.4 mmol/L Normal 6.0-15.0 [facility] Comment on above: Order Comment: Reaso n for Exam Essential hypertension Reason for Exam Mixed hyperlipidemia;Essential hypertension Reason for Exam Diabetes;Mixed hyperlipidemia;Essential hypertension Performed By: #### T SH3 wRFLX, CBC, LIPID, CMP #### [facility] [address] Serum or plasma high density lipoprotein (HDL) cholesterol measurementOrdered By: Vicky Oshea on 02-09-2024 Cholesterol in HDL [Mass/Vol] 34 mg/dL Normal 23-92 [facility] Comment on above: HDL CHOL ATP-III CLA SSIFICATION Cardiovascular RiskHDL > or equal to 60 mg/dL LOWHDL < 40 mg/dL HIGH Order Comment: Reaso n for Exam Essential hypertension Reason for Exam Mixed hyperlipidemia;Essential hypertension Reason for Exam Diabetes;Mixed hyperlipidemia;Essential hypertension Result Comment: HDL CHOL ATP-III CLASSIFICATION Cardiovascular Risk HDL > or equal to 60 mg/dL LOW HDL < 40 mg/dL HIGH Performed By: #### T SH3 wRFLX, CBC, LIPID, CMP #### [facility] [address] Serum or plasma total choles terol/high density lipoprotein (HDL) cholesterol mass ratOrdered By: Vicky Oshea on 02-09-2024 Cholesterol.total/Chol esterol in HDL [Mass ratio] 6.5 {ratio} Normal <5.0 [facility] Comment on above: Order Comment: Reaso n for Exam Essential hypertension Reason for Exam Mixed hyperlipidemia;Essential hypertension Reason for Exam Diabetes;Mixed hyperlipidemia;Essential hypertension Performed By: #### T SH3 wRFLX, CBC, LIPID, CMP #### [facility] [address] [place] [address] [place] Sodium [Moles/volume] in Ser um or PlasmaOrdered By: Vicky Oshea on 02-09-2024 Sodium [Moles/Vol] 140 mmol/L Normal 136-145 [facility] Comment on above: Order Comment: Reaso n for Exam Essential hypertension Reason for Exam Mixed hyperlipidemia;Essential hypertension Reason for Exam Diabetes;Mixed hyperlipidemia;Essential hypertension Performed By: #### T SH3 wRFLX, CBC, LIPID, CMP #### [facility] [address] [place] [address] [facility] Thyroid Stim Hormone w/Rflxo n 02-09-2024 Thyroid Stim Hormone w/Rflx 1.71 u[iU]/mL Normal 0.45-5.33 [facility] Comment on above: Order Comment: Reaso n for Exam Essential hypertension Reason for Exam Mixed hyperlipidemia;Essential hypertension Reason for Exam Diabetes;Mixed hyperlipidemia;Essential hypertension Result Comment: PERF ORMED BY: [place] [address] PATHOLOGIST ENERGY TECHNICIAN DAVID VELAZQUEZ M.D. Performed By: #### T SH3 wRFLX, CBC, LIPID, CMP #### [facility] [address] [place] [id number] [place] Thyrotropin [Units/volume] i n Serum or PlasmaOrdered By: Vicky Oshea on 02-09-2024 TSH Qn 1.71 m[IU]/L 0.45-5.33 [facility] Triglyceride [Mass/volume] i n Serum or PlasmaOrdered By: Vicky Oshea on 02-09-2024 Triglyceride [Mass/Vol] 192 mg/dL High 0-149 [facility] Comment on above: TRIG ATP III CLASSIF ICATIONTRIG less than 150 mg/dL NormalTRIG 150-199 mg/dL Borderline highTRIG 200-500 mg/dL High TRIG greater than 500 mg/dL Very highStandard traceable to the Center for Disease Conrtrol and Prevention (CDC) test method. Urea nitrogen [Mass/volume] in Serum or PlasmaOrdered By: Vicky Oshea on 02-09-2024 Urea nitrogen [Mass/Vol] 5 mg/dL Low 7-25 [facility] Comment on above: Order Comment: Reaso n for Exam Essential hypertension Reason for Exam Mixed hyperlipidemia;Essential hypertension Reason for Exam Diabetes;Mixed hyperlipidemia;Essential hypertension Performed By: #### T SH3 wRFLX, CBC, LIPID, CMP #### [facility] [address] [place] [id number] [place] Microalbumin [Mass/volume] i n UrineOrdered By: Vicky Oshea on 11-24-2023 Albumin DL <= 20 mg/L (U) [Mass/Vol] mg/dL Normal 0.0-1.8 [facility] Comment on above: Order Comment: Name Collection Type:: Clean-Voided Midstream Result Comment: PERF ORMED BY: [place] [address] PATHOLOGIST ENERGY TECHNICIAN DAVID VELAZQUEZ M.D. Performed By: #### A DDONUAPLUS #### [address] Urine Cultureon 11-24-2023 Bacteria identified Cx Nom (U) Reason for Exam Urinary urgency Urine Reason for Exam: Urinary urgency : Urine ORGANISM: Escherichia coli (O:ESCCOL) [place] Count >100,000 Aerobic BRIAN Charge (NMIC56) SUSCEPTIBILITY ORGANISM: O:ESCCOL ANTIBIOTIC INTERPRETATION BRIAN Amikacin S <16 Amoxacillin/K Clavulanate S <8 Ampicillin S <8 Ampicillin/Sulbactam S <4 Aztreonam S <4 Cefazolin S <2 Cefepime S <2 Ceftazidime S <1 Ceftazidime/Avibactam S <4 Ceftolozane/Tazobactam S <2 Ceftriaxone S <1 Cefuroxime S 8 Ciprofloxacin S <0.25 Ertapenem S <0.5 Gentamicin S <2 Levofloxacin S <0.5 Meropenem S <1 Meropenem/Vaborbactam S <2 Nitrofurantoin S <32 Piperacillin/Tazobactam S <8 Tetracycline S <4 Tigecycline S <2 Tobramycin S <2 Trimethoprim/Sulfamethoxa zole S <0.5 S = SUSCEPTIBLE I = INTERMEDIATE R = RESISTANT BLANK = DATA NOT AVAILABLE, OR DRUG NOT ADVISABLE OR TESTED R* = RESISTANCE DUE TO EXTENDED SPECTRUM BETA-LACTAMASES ESBL = EXTENDED SPECTRUM BETA-LACTAMASE TFG = THYMIDINE-DEPENDENT STRAIN IRWIN = BETA-LACTAMASE POSITIVE IB = INDUCIBLE BETA-LACTAMASE. APPEARS IN PLACE OF 'S' WITH SPECIES KNOWN TO POSSESS INDUCIBLE BETA-LACTAMASES. POTENTIALLY THEY MAY BECOME RESISTANT TO ALL B-LACTAM DRUGS. PERFORMED BY: [place] [address] PATHOLOGIST ENERGY TECHNICIAN DAVID VELAZQUEZ M.D. Normal [facility] Comment on above: Performed By: #### C UU #### [facility] [address] [place] [id number] [facility] Urine culture routineOrdered By: Vicky Oshea on 11-24-2023 Bacteria identified Cx Nom (U) Escherichia coli Abnormal [facility] CT chest wo conon 11-22-2023 CT chest wo con [facility] [place] [address] [place] [address] CT Scan Report Signed Patient: Kym Briscoe MR#: [id number] 42 : 1955 Acct:[id number] Age/Sex: 68 / F ADM Date: 11/21/23 Loc: CT Room: Type: [facility] Attending Dr: Vicky BOLDEN Copies to: YUAN Nava Ordering Provider: YUAN Nava Date of Service: 11/21/23 CT/CT chest wo con: Pulmonary nodule, right CT CHEST WITHOUT CONTRAST COMPARISON: Plain films 10/22/[address] 10/22/2023 CLINICAL DATA: Chronic shortness of breath and history of tobacco use. Right lung nodularity on recent cervical CT . Spiral images were obtained through chest without contrast. Images were reviewed using both narrow and wide window settings. This CT exam was performed using one or more following dose reduction techniques: Automated exposure control, adjustment of the mA and/or kV according to patient size, or use of iterative reconstruction technique. The heart is within normal limits for size. There is a trace amount of pericardial fluid. Coronary artery disease is seen. There is no aortic aneurysm. There is atherosclerotic plaque at the aortic arch and proximal great vessels. There are few small nonpathologic lymph nodes. There are also subcarinal and right hilar calcified granulomas. There are anterolateral right fourth, fifth and sixth rib fractures which are not fully healed. Endplate spurring is seen at the spine. There is obstructive lung disease with airspace lucencies. There is a tiny 3 mm nodular asymmetry at the right apex. Inferior to it is an irregular, elongate focus measuring approximately 10 mm on the coronal reconstructions. These were present on the recent cervical CT . There is another tiny irregular groundglass opacity at the left upper lobe (axial image 17) . A tiny 2 mm nodular asymmetry is seen at the junction of the major and minor fissures on the right. There is a 6 mm noncalcified nodule at the medial left lower lobe in the infrahilar region (axial image 41). There is minor atelectasis or scarring at the left base. There is no other consolidation, pleural effusion or pneumothorax Limited cuts through the upper abdomen show a left renal cyst. CT/CT chest wo con IMPRESSION: OBSTRUCTIVE LUNG DISEASE. IRREGULAR AND NODULAR ASYMMETRIES, DESCRIBED. FOLLOW-UP CT IS RECOMMENDED TO ASSESS STABILITY. MILD GRANULOMATOUS CHANGES. HEALING RIGHT RIB FRACTURES. LEFT RENAL CYST. Impression dictated by: Jayla Herr M.D.11/22/2023 10:29 AM Dictation Location: [place] [address] Transcribed By: CARON 11/22/23 1029 Dictated By: Jayla Herr MD 11/22/23 1016 Signed By: 11/22/23 1029 Normal [facility] Automated erythrocytes count in urine sediment (number/area)Ordered By: Katelyn Bartholomew on 10-22-2023 RBC Auto (Urine sed) [#/Area] 0-1 [HPF] 0-4 [facility] Automated leukocytes count i n urine sediment (number/area)Ordered By: Katelyn Bartholomew on 10-22-2023 WBC Auto (Urine sed) [#/Area] 3-4 [HPF] 0-4 [facility] Automated urine color determ inationOrdered By: Katelyn Bartholomew on 10-22-2023 Color (U) Yellow Normal Yellow [facility] Comment on above: Order Comment: Name Collection Type:: Clean-Voided Midstream Performed By: #### A DDONUAPLUS #### [facility] [address] Bilirubin Test strip Ql (U)O rdered By: Katelyn Bartholomew on 10-22-2023 Bilirubin Ql (U) Negative Negative [facility] CT head/brain wo conon 10-21 CT head/brain wo con [facility] [place] [address] [place] [address] CT Scan Report Signed Patient: Kym Briscoe MR#: [id number] 42 : 1955 Acct:[id number] Age/Sex: 68 / F ADM Date: 10/22/23 Loc: ER Room: Type: [facility] ER Attending Dr: Copies to: Katelyn Bartholomew APRN Ordering Provider: Katelyn Bartholomew APRN Date of Service: 10/22/23 CT/CT cervical spine wo con: fall ([id number]) CT/CT head/brain wo con: fall CT BRAIN WITHOUT CONTRAST: CLINICAL HISTORY: Fall several days ago. Back and chest pain. COMPARISON: None TECHNIQUE: Contiguous axial unenhanced images were obtained through the brain. This CT exam was performed using one or more following dose reduction techniques: Automated exposure control, adjustment of the mA and/or kV according to patient size, or use of iterative reconstruction technique. FINDINGS: There is no evidence of midline shift, intra or extra-axial fluid collection, hemorrhage or CT evidence of stroke. Cortical atrophy with chronic microvascular ischemic changes. Posterior fossa appears unremarkable. Visualized intraorbital contents appear unremarkable. Visualized paranasal sinuses are clear. The surrounding soft tissues are normal. CT/CT head/brain wo con IMPRESSION: NO ACUTE INTRACRANIAL ABNORMALITY. CT CERVICAL SPINE WITHOUT CONTRAST WITH 3D RECONSTRUCTIONS: CLINICAL HISTORY: Fall several days ago. Back and chest pain. COMPARISON: None TECHNIQUE: Spiral axial unenhanced images were obtained through the cervical spine. Sagittal, coronal and 3D volume-rendered reconstructions were also reviewed. This CT exam was performed using one or more following dose reduction techniques: Automated exposure control, adjustment of the mA and/or kV according to patient size, or use of iterative reconstruction technique. FINDINGS: No acute fracture. Vertebral body heights appear maintained. Moderate spondylosis C5- C7. Scattered endplate, uncovertebral and facet joint degenerative change. No prevertebral soft tissue swelling. Visualized lung apices demonstrate emphysematous changes with noncalcified pulmonary nodules involving the right lung apex, largest measuring 6 mm which is partially calcified.. IMPRESSION: NO CERVICAL SPINE FRACTURE EMPHYSEMATOUS CHANGES INVOLVING THE LUNG APICES WITH NODULES INVOLVING THE RIGHT LUNG APEX, LARGEST MEASURING 6 MM. COMPLETE EVALUATION WITH NONEMERGENT CT CHEST IS SUGGESTED. Impression dictated by: Jimbo Robin Jr.OIliana10/22/2023 2:31 PM Dictation Location: [place] [address] Transcribed By: [facility] 10/22/23 1431 Dictated By: Bassam Mondragon Jr, 10/22/23 1428 Signed By: 10/22/23 1431 Normal [facility] Dipstick and Microscopicon 0 10-22-2023 Appearance (U) Clear Normal Clear [facility] Comment on above: Order Comment: Name Collection Type:: Clean-Voided Midstream Performed By: #### A DDONUAPLUS #### [address] Bacteria,Urine None Seen Normal None Seen [facility] Comment on above: Order Comment: Name Collection Type:: Clean-Voided Midstream Performed By: #### A DDONUAPLUS #### [address] Bilirubin,Urine Negative Normal Negative [facility] Comment on above: Order Comment: Name Collection Type:: Clean-Voided Midstream Performed By: #### A DDONUAPLUS #### [address] Glucose Ql (U) Normal Normal Normal [facility] Comment on above: Order Comment: Name Collection Type:: Clean-Voided Midstream Performed By: #### A DDONUAPLUS #### [address] Hyaline Casts,Urine 0-8 Normal 0-8 [facility] Comment on above: Order Comment: Name Collection Type:: Clean-Voided Midstream Result Comment: PERF ORMED BY: [place] [address] PATHOLOGIST ENERGY TECHNICIAN DAVID VELAZQUEZ M.D. Performed By: #### A DDONUAPLUS #### [address] Ketones Ql (U) Negative Normal Negative [facility] Comment on above: Order Comment: Name Collection Type:: Clean-Voided Midstream Performed By: #### A DDONUAPLUS #### [address] Leukocyte esterase Test strip Ql (U) 2+ High Negative [facility] Comment on above: Order Comment: Name Collection Type:: Clean-Voided Midstream Performed By: #### A DDONUAPLUS #### [address] Nitrite,Urine Negative Normal Negative [facility] Comment on above: Order Comment: Name Collection Type:: Clean-Voided Midstream Performed By: #### A DDONUAPLUS #### [address] Occult Blood,Urine Negative Normal Negative [facility] Comment on above: Order Comment: Name Collection Type:: Clean-Voided Midstream Result Comment: PERF ORMED BY: [place] [address] PATHOLOGIST ENERGY TECHNICIAN DAVID VELAZQUEZ M.D. Performed By: #### A DDONUAPLUS #### [address] Protein,Urine Negative Normal Negative [facility] Comment on above: Order Comment: Name Collection Type:: Clean-Voided Midstream Performed By: #### A DDONUAPLUS #### [address] RBC LM.HPF (Urine sed) [#/Area] 0 /[HPF] Normal 0-4 [facility] Comment on above: Order Comment: Name Collection Type:: Clean-Voided Midstream Performed By: #### A DDONUAPLUS #### [address] Specificy [place],Urine 1.007 Normal 1.001-1.03 0 [facility] Comment on above: Order Comment: Name Collection Type:: Clean-Voided Midstream Performed By: #### A DDONUAPLUS #### [address] Squamous Epithelial Cell,Urine 0-1 Normal 0-2 [facility] Comment on above: Order Comment: Name Collection Type:: Clean-Voided Midstream Performed By: #### A DDONUAPLUS #### [facility] [address] Urobilinogen,Urine Normal Normal Normal [facility] Comment on above: Order Comment: Name Collection Type:: Clean-Voided Midstream Performed By: #### A DDONUAPLUS #### [facility] [address] WBC,Urine 3-4 Normal 0-4 [facility] Comment on above: Order Comment: Name Collection Type:: Clean-Voided Midstream Performed By: #### A DDONUAPLUS #### [facility] [address] ECG 12 lead ECGon 10-22-2023 ECG 12 lead ECG [facility] [place] [address] [place] [address] Electrocardiograph Report Signed Patient: Kym Briscoe MR#: [id number] 42 : 1955 Acct:[id number] Age/Sex: 68 / F ADM Date: 10/22/23 Loc: ER Room: Type: [facility] ER Attending Dr: Ordering Provider: Katelyn Bartholomew APRN Date of Service: 10/22/2301/09/1340 ECG/ECG 12 lead ECG: Fall Copies to: Test Reason : Blood Pressure : / mmHG Vent. Rate : 062 BPM Atrial Rate : 062 BPM P-R Int : 128 ms QRS Dur : 088 ms QT Int : 380 ms P-R-T Axes : 085 068 -54 degrees QTc Int : 385 ms Normal sinus rhythm T wave abnormality, consider inferior ischemia T wave abnormality, consider anterolateral ischemia Abnormal ECG When compared with ECG of 27-SEP-2023 19:11, T wave inversion more evident in Lateral leads Confirmed by ALEX ENRIQUEZ MD ([id number]) on 10/22/2023 5:54:24 PM Referred By: Electronically Signed By:ALEX ENRIQUEZ MD Transcribed By: MUS Signed By Alex Enriquez MD 10/22/23 1754 Normal [facility] Ketones Auto test strip (U) [Mass/Vol]Ordered By: Katelyn Bartholomew on 10-22-2023 Ketones (U) [Mass/Vol] Negative Negative [facility] - UrinalysisOrder ed By: Katelyn Bartholomew on 10-22-2023 Hyaline casts LM Ql (Urine sed) 0-8 [LPF] 0-8 [facility] Nitrite Test strip Ql (U)Ord ered By: Katleyn Bartholomew on 10-22-2023 Nitrite Ql (U) Negative Negative [facility] Protein Auto test strip (U) [Mass/Vol]Ordered By: Katelyn Bartholomew on 10-22-2023 Protein (U) [Mass/Vol] Negative Negative [facility] Specific gravity Auto test s trip (U) [Rel density]Ordered By: Katelyn Bartholomew on 10-22-2023 Specific gravity (U) [Rel density] 1.007 1.001-1.03 0 [facility] Squamous epithelial cells de tection in urine sediment by light microscopyOrdered By: Katelyn Bartholomew on 10-22-2023 Epithelial cells.squamous LM Ql (Urine sed) 0-1 [HPF] 0-2 [facility] Urine Cultureon 10-22-2023 Bacteria identified Cx Nom (U) 30,000 colonies/ml mixed bacterial skin contaminants 2 Days PERFORMED BY: [place] [address] PATHOLOGIST ENERGY TECHNICIAN DAVID Carver [facility] Comment on above: Performed By: #### C UU #### [address] Urine bacteria detection by automated methodOrdered By: Katelyn Bartholomew on 10-22-2023 Bacteria Auto Ql (U) None seen None Seen [facility] Urine clarity by refractomet ry automatedOrdered By: Katelyn Bartholomew on 10-22-2023 Clarity Refractometry automated (U) Clear Clear [facility] Urine culture routineOrdered By: Katelyn Bartholomew on 10-22-2023 Bacteria identified Cx Nom (U) 2 Days [facility] Urine glucose measurement by automated test strip (mass/volume)Ordered By: Katelyn Bartholomew on 10-22-2023 Glucose Auto test strip (U) [Mass/Vol] Normal mg/dL Normal [facility] Urine hemoglobin detection b y automated test stripOrdered By: Katelyn Bartholomew on 10-22-2023 Hemoglobin Auto test strip Ql (U) Negative Negative [facility] Urine leukocyte esterase det ection by automated test stripOrdered By: Katelyn Bartholomew on 10-22-2023 Leukocyte esterase Auto test strip Ql (U) 2+ Negative [facility] Urine pH measurement by auto mated test stripOrdered By: Katelyn Bartholomew on 10-22-2023 pH (U) 7.0 [pH] Normal 5.0-9.0 [facility] Comment on above: Order Comment: Name Collection Type:: Clean-Voided Midstream Performed By: #### A DDONUAPLUS #### [address] Urobilinogen Auto test strip (U) [Mass/Vol]Ordered By: Katelyn Bartholomew on 10-22-2023 Urobilinogen (U) [Mass/Vol] Normal mg/dL Normal [facility] XR ribs RT min 3V w CXR1V*on 10-22-2023 XR ribs RT min 3V w CXR1V* [facility] [place] [address] [place] [address] XRay Report Signed Patient: Kym Briscoe MR#: [id number] 42 : 1955 Acct:[id number] Age/Sex: 68 / F ADM Date: 10/22/23 Loc: ER Room: Type: [facility] ER Attending Dr: Copies to: Katelyn Bartholomew APRN Ordering Provider: Katelyn Bartholomew APRN Date of Service: 10/22/23 XR/XR ribs RT min 3V w CXR1V*: Fall PA CHEST WITH 4 VIEWS RIGHT RIBS: CLINICAL HISTORY: Fall. Back and chest pain. COMPARISON: None FINDINGS: Chest demonstrates the heart is normal in size. Lungs are clear. No free air. Additional views of the right ribs demonstrate no displaced rib fracture. XR/XR ribs RT min 3V w CXR1V* IMPRESSION: No acute findings. Impression dictated by: Bassam Mondragon Jr., D.OIliana10/22/2023 2:32 PM Dictation Location: [place] [address] Transcribed By: [facility] 10/22/23 1432 Dictated By: Bassam Mondragon Jr, DO 10/22/23 1431 Signed By: 10/22/23 1432 Normal [facility] Alanine aminotransferase [En zymatic activity/volume] in Serum or PlasmaOrdered By: Vicky Oshea on 10-04-2023 ALT [Catalytic activity/Vol] 12 U/L Normal 7-52 [facility] Comment on above: Order Comment: Reaso n for Exam Essential hypertension Performed By: #### T SH3 wRFLX, CBC, LIPID, CMP #### [facility] [address] [place] [address] [place] Albumin [Mass/volume] in Ser um or Plasma by Bromocresol green (BCG) dye binding methoOrdered By: Vicky Oshea on 10-04-2023 Albumin BCG dye [Mass/Vol] 4.2 g/dL 3.5-5.7 [facility] Alkaline phosphatase [Enzyma tic activity/volume] in Serum or PlasmaOrdered By: Vicky Oshea on 10-04-2023 ALP [Catalytic activity/Vol] 103 U/L Normal 34-104 [facility] Comment on above: Order Comment: Reaso n for Exam Essential hypertension Performed By: #### T SH3 wRFLX, CBC, LIPID, CMP #### [facility] [address] [place] [address] [place] Aspartate aminotransferase [ Enzymatic activity/volume] in Serum or PlasmaOrdered By: Vicky Oshea on 10-04-2023 AST [Catalytic activity/Vol] 17 U/L Normal 13-39 [facility] Comment on above: Order Comment: Reaso n for Exam Essential hypertension Performed By: #### T SH3 wRFLX, CBC, LIPID, CMP #### [facility] [address] [place] [address] [place] Automated basophil %Ordered By: Vicky Oshea on 10-04-2023 Basophils/100 WBC (Bld) 1.0 % Normal . [facility] Comment on above: Order Comment: Reaso n for Exam Essential hypertension Performed By: #### T SH3 wRFLX, CBC, LIPID, CMP #### [facility] [address] [place] [address] Automated basophil countOrde red By: Vicky Oshea on 10-04-2023 Basophils (Bld) [#/Vol] 0.1 10*3/uL Normal 0.0-0.2 [facility] Comment on above: Order Comment: Reaso n for Exam Essential hypertension Result Comment: PERF ORMED BY: [place] [address] PATHOLOGIST ENERGY TECHNICIAN DAVID VELAZQUEZ M.D. Performed By: #### T SH3 wRFLX, CBC, LIPID, CMP #### [facility] [address] [place] [address] Automated blood monocyte cou ntOrdered By: Vicky Oshea on 10-04-2023 Monocytes (Bld) [#/Vol] 0.8 10*3/uL Normal 0.0-0.8 [facility] Comment on above: Order Comment: Reaso n for Exam Essential hypertension Performed By: #### T SH3 wRFLX, CBC, LIPID, CMP #### [facility] [address] [place] [address] Automated eosinophil %Ordere d By: Vicky Oshea on 10-04-2023 Eosinophils/100 WBC (Bld) 1.8 % Normal . [facility] Comment on above: Order Comment: Reaso n for Exam Essential hypertension Performed By: #### T SH3 wRFLX, CBC, LIPID, CMP #### [facility] [address] [place] [address] Automated eosinophil countOr dered By: Vicky Oshea on 10-04-2023 Eosinophils (Bld) [#/Vol] 0.2 10*3/uL Normal 0.0-0.45 [facility] Comment on above: Order Comment: Reaso n for Exam Essential hypertension Performed By: #### T SH3 wRFLX, CBC, LIPID, CMP #### [facility] [address] [place] [address] Automated monocyte %Ordered By: Vicky Oshea on 10-04-2023 Monocytes/100 WBC (Bld) 7.8 % Normal . [facility] Comment on above: Order Comment: Reaso n for Exam Essential hypertension Performed By: #### T SH3 wRFLX, CBC, LIPID, CMP #### [facility] [address] [place] [id number] [place] Automated neutrophil %Ordere d By: Vicky Spasic on 10-04-2023 Neutrophils/100 WBC (Bld) 68.0 % Normal . [facility] Comment on above: Order Comment: Reaso n for Exam Essential hypertension Performed By: #### T SH3 wRFLX, CBC, LIPID, CMP #### [facility] [address] [place] [address] [place] Bilirubin.total [Mass/volume ] in Serum or PlasmaOrdered By: Vicky Velazquezc on 10-04-2023 Bilirubin [Mass/Vol] 0.4 mg/dL Normal 0.3-1.0 [facility] Comment on above: Order Comment: Reaso n for Exam Essential hypertension Performed By: #### T SH3 wRFLX, CBC, LIPID, CMP #### [facility] [address] [place] [id number] [place] Calcium [Mass/volume] in Ser um or PlasmaOrdered By: Vicky Oshea on 10-04-2023 Calcium [Mass/Vol] 9.1 mg/dL Normal 8.6-10.3 [facility] Comment on above: Order Comment: Reaso n for Exam Essential hypertension Performed By: #### T SH3 wRFLX, CBC, LIPID, CMP #### [facility] [address] [place] [id number] [place] Carbon dioxide, total [Moles /volume] in Serum or PlasmaOrdered By: Vicky Velazquezc on 10-04-2023 CO2 [Moles/Vol] 23.9 mmol/L Normal 21.0-31.0 [facility] Comment on above: Order Comment: Reaso n for Exam Essential hypertension Performed By: #### T SH3 wRFLX, CBC, LIPID, CMP #### [facility] [address] [place] [id number] [place] Chloride [Moles/volume] in S tiffanie or PlasmaOrdered By: Vicky Oshea on 10-04-2023 Chloride [Moles/Vol] 105 mmol/L Normal 98-107 [facility] Comment on above: Order Comment: Reaso n for Exam Essential hypertension Performed By: #### T SH3 wRFLX, CBC, LIPID, CMP #### [facility] [address] Cholesterol [Mass/volume] in Serum or PlasmaOrdered By: Vicky Oshea on 10-04-2023 Cholesterol [Mass/Vol] 139 mg/dL Low 140-200 [facility] Comment on above: Chol less than 200 m g/dl low riskChol 201-239 mg/dl borderline riskChol 240 mg/dl and greater high risk Order Comment: Reaso n for Exam Essential hypertension Result Comment: Chol less than 200 mg/dl low risk Chol 201-239 mg/dl borderline risk Chol 240 mg/dl and greater high risk Performed By: #### T SH3 wRFLX, CBC, LIPID, CMP #### [facility] [address] Cholesterol in LDL Calc [Mas s/Vol]Ordered By: Vicky Oshea on 10-04-2023 Cholesterol in LDL [Mass/Vol] 80 mg/dL 0-100 [facility] Comment on above: LDL ATP III CLASSIFI CATIONLDL less than 100 mg/dL OptimalLDL 100-129 mg/dL Near or above optimalLDL 130-159 mg/dL Borderline highLDL 160-189 mg/dL HighLDL greater than 189 mg/dL Very high Cholesterol in VLDL Calc [Ma ss/Vol]Ordered By: Vicky Oshea on 10-04-2023 Cholesterol in VLDL [Mass/Vol] 32 mg/dL [facility] Complete Blood Count Auto Di ffon 10-04-2023 Mean Corpuscular HGB Conc 33.0 g/dL Normal 32.0-35.0 [facility] Comment on above: Order Comment: Reaso n for Exam Essential hypertension Performed By: #### T SH3 wRFLX, CBC, LIPID, CMP #### [facility] [address] [place] [address] [place] NRBC% 0.1 /100{WBC} Normal 0-0.5 [facility] Comment on above: Order Comment: Reaso n for Exam Essential hypertension Performed By: #### T SH3 wRFLX, CBC, LIPID, CMP #### [facility] [address] [place] [address] Comprehensive Metabolic Pane margarita 10-04-2023 Albumin [Mass/Vol] 4.2 g/dL Normal 3.5-5.7 [facility] Comment on above: Order Comment: Reaso n for Exam Essential hypertension Performed By: #### T SH3 wRFLX, CBC, LIPID, CMP #### [address] GFR/1.73 sq M.predicted MDRD (S/P/Bld) [Vol rate/Area] mL/min/{1.73_m2} Normal [facility] Comment on above: Order Comment: Reaso n for Exam Essential hypertension Performed By: #### T SH3 wRFLX, CBC, LIPID, CMP #### [address] Creatinine [Mass/volume] in Serum or PlasmaOrdered By: Vicky Oshea on 10-04-2023 Creatinine [Mass/Vol] 0.85 mg/dL Normal 0.60-1.20 [facility] Comment on above: Order Comment: Reaso n for Exam Essential hypertension Performed By: #### T SH3 wRFLX, CBC, LIPID, CMP #### [facility] [address] [place] [address] Erythrocyte distribution wid th [Ratio] by Automated countOrdered By: Vicky Vleazquezc on 10-04-2023 Erythrocyte distribution width (RBC) [Ratio] 14.2 % Normal 11.9-15.3 [facility] Comment on above: Order Comment: Reaso n for Exam Essential hypertension Performed By: #### T SH3 wRFLX, CBC, LIPID, CMP #### [facility] [address] [place] [address] [place] Erythrocytes [#/volume] in B lood by Automated countOrdered By: Vicky Velazquezc on 10-04-2023 RBC (Bld) [#/Vol] 4.55 10*6/uL Normal 3.60-5.00 [facility] Comment on above: Order Comment: Reaso n for Exam Essential hypertension Performed By: #### T SH3 wRFLX, CBC, LIPID, CMP #### [facility] [address] [place] [address] [place] Glucose [Mass/volume] in Ser um or PlasmaOrdered By: Vicky Oshea on 10-04-2023 Glucose [Mass/Vol] 152 mg/dL High 70-100 [facility] Comment on above: ADA recommended refe rence rangeRandom Glucose Reference Range is dependent on time and content of last meal. Glucose of more than 200 mg/dL in a nonstressed, ambulatory subject supports the diagnosis of Diabetes Mellitus. Order Comment: Reaso n for Exam Essential hypertension Result Comment: [place] om Glucose Reference Range is dependent on time and content of last meal. Glucose of more than 200 mg/dL in a nonstressed, ambulatory subject supports the diagnosis of Diabetes Mellitus. ADA recommended reference range Performed By: #### T SH3 wRFLX, CBC, LIPID, CMP #### [facility] [address] [place] [address] [place] Hematocrit [Volume Fraction] of Blood by Automated countOrdered By: Vicky Oshea on 10-04-2023 Hematocrit (Bld) [Volume fraction] 43.4 % Normal 34.0-46.4 [facility] Comment on above: Order Comment: Reaso n for Exam Essential hypertension Performed By: #### T SH3 wRFLX, CBC, LIPID, CMP #### [facility] [address] [place] [address] [place] Hemoglobin [Mass/volume] in BloodOrdered By: Vicky Oshea on 10-04-2023 Hemoglobin (Bld) [Mass/Vol] 14.3 g/dL Normal 11.8-15.4 [facility] Comment on above: Order Comment: Reaso n for Exam Essential hypertension Performed By: #### T SH3 wRFLX, CBC, LIPID, CMP #### [facility] [address] [place] [address] [place] Leukocytes [#/volume] correc gilma for nucleated erythrocytes in Blood by Automated counOrdered By: Vicky Oshea on 10-04-2023 WBC corrected for nucl RBC Auto (Bld) [#/Vol] 10.4 10*3/uL 3.8-11.6 [facility] Leukocytes [#/volume] in Blo od by Automated countOrdered By: Vicky Oshea on 10-04-2023 WBC (Bld) [#/Vol] 10.4 10*3/uL Normal 3.8-11.6 [facility] Comment on above: Order Comment: Reaso n for Exam Essential hypertension Performed By: #### T SH3 wRFLX, CBC, LIPID, CMP #### [facility] [address] Lipid Panelon 10-04-2023 LDL Cholesterol,Calculated 80 mg/dL Normal 0-100 [facility] Comment on above: Order Comment: Reaso n for Exam Essential hypertension Result Comment: LDL ATP III CLASSIFICATION LDL less than 100 mg/dL Optimal LDL 100-129 mg/dL Near or above optimal LDL 130-159 mg/dL Borderline high LDL 160-189 mg/dL High LDL greater than 189 mg/dL Very high Performed By: #### T SH3 wRFLX, CBC, LIPID, CMP #### [facility] [address] Triglyceride w/Reflex 160 mg/dL High 0-149 [facility] Comment on above: Order Comment: Reaso n for Exam Essential hypertension Result Comment: TRIG ATP III CLASSIFICATION TRIG less than 150 mg/dL Normal TRIG 150-199 mg/dL Borderline high TRIG 200-500 mg/dL High TRIG greater than 500 mg/dL Very high Standard traceable to the Center for Disease Conrtrol and Prevention (CDC) test method. Performed By: #### T SH3 wRFLX, CBC, LIPID, CMP #### [facility] [address] [place] [id number] [facility] VLDL CHOLESTEROL 32 mg/dL Normal [facility] Comment on above: Order Comment: Reaso n for Exam Essential hypertension Performed By: #### T SH3 wRFLX, CBC, LIPID, CMP #### [facility] [address] [place] [id number] [place] Lymphocytes [#/volume] in Bl ood by Automated countOrdered By: Vicky Oshea on 10-04-2023 Lymphocytes (Bld) [#/Vol] 2.2 10*3/uL Normal 1.00-4.8 [facility] Comment on above: Order Comment: Reaso n for Exam Essential hypertension Performed By: #### T SH3 wRFLX, CBC, LIPID, CMP #### [facility] [address] Lymphocytes/100 leukocytes i n Blood by Automated countOrdered By: Vicky Oshea on 10-04-2023 Lymphocytes/100 WBC (Bld) 21.4 % Normal . [facility] Comment on above: Order Comment: Reaso n for Exam Essential hypertension Performed By: #### T SH3 wRFLX, CBC, LIPID, CMP #### [facility] [address] [place] [address] [place] MCH [Entitic mass] by Automa gilma countOrdered By: Vicky Oshea on 10-04-2023 MCH (RBC) [Entitic mass] 31.5 pg Normal 24.7-34.3 [facility] Comment on above: Order Comment: Reaso n for Exam Essential hypertension Performed By: #### T SH3 wRFLX, CBC, LIPID, CMP #### [facility] [address] [place] [address] MCHC Auto (RBC) [Mass/Vol]Or dered By: Vicky Oshea on 10-04-2023 MCHC (RBC) [Mass/Vol] 33.0 g/dL 32.0-35.0 [facility] MCV [Entitic volume] by Auto mated countOrdered By: Vicky Oshea on 10-04-2023 MCV (RBC) [Entitic vol] 95.6 fL Normal 80-100 [facility] Comment on above: Order Comment: Reaso n for Exam Essential hypertension Performed By: #### T SH3 wRFLX, CBC, LIPID, CMP #### [facility] [address] [place] [address] [place] Neutrophils [#/volume] in Bl ood by Automated countOrdered By: Vicky Oshea on 10-04-2023 Neutrophils (Bld) [#/Vol] 7.1 10*3/uL Normal 1.8-7.7 [facility] Comment on above: Order Comment: Reaso n for Exam Essential hypertension Performed By: #### T SH3 wRFLX, CBC, LIPID, CMP #### [facility] [address] No Panel InformationOrdered By: Vicky Oshea on 10-04-2023 Estimated GFR (CKD-EPI) > 60.0 mL/Min [facility] Creatinine Clearance (Chem N/A [facility] Nucleated erythrocytes [Pres ence] in Blood by Automated countOrdered By: Vicky Oshea on 10-04-2023 Nucleated RBC Auto Ql (Bld) 0.1 /100{WBC} 0-0.5 [facility] Platelet mean volume [Entiti c volume] in Blood by Automated countOrdered By: Vicky Oshea on 10-04-2023 Platelet mean volume (Bld) [Entitic vol] 11.3 fL High 6.3-10.7 [facility] Comment on above: Order Comment: Reaso n for Exam Essential hypertension Performed By: #### T SH3 wRFLX, CBC, LIPID, CMP #### [facility] [address] [place] [address] Platelets [#/volume] in Bloo d by Automated countOrdered By: Vicky Oshea on 10-04-2023 Platelets (Bld) [#/Vol] 266 10*3/uL Normal 150-450 [facility] Comment on above: Order Comment: Reaso n for Exam Essential hypertension Performed By: #### T SH3 wRFLX, CBC, LIPID, CMP #### [facility] [address] [place] [address] [place] Potassium [Moles/volume] in Serum or PlasmaOrdered By: Vicky Oshea on 10-04-2023 Potassium [Moles/Vol] 3.8 mmol/L Normal 3.5-5.1 [facility] Comment on above: Order Comment: Reaso n for Exam Essential hypertension Performed By: #### T SH3 wRFLX, CBC, LIPID, CMP #### [facility] [address] [place] [address] Protein [Mass/volume] in Ser um or PlasmaOrdered By: Vicky Oshea on 10-04-2023 Protein [Mass/Vol] 7.1 g/dL Normal 6.4-8.9 [facility] Comment on above: Order Comment: Reaso n for Exam Essential hypertension Performed By: #### T SH3 wRFLX, CBC, LIPID, CMP #### [facility] [address] [place] [address] Serum globulin measurement b y calculation (mass/volume)Ordered By: Vicky Oshea on 10-04-2023 Globulin (S) [Mass/Vol] 2.9 g/dL Normal [facility] Comment on above: Order Comment: Reaso n for Exam Essential hypertension Performed By: #### T SH3 wRFLX, CBC, LIPID, CMP #### [facility] [address] [place] [address] Serum or plasma albumin/glob ulin mass ratioOrdered By: Vicky Oshea on 10-04-2023 Albumin/Globulin [Mass ratio] 1.4 {ratio} Normal [facility] Comment on above: Order Comment: Reaso n for Exam Essential hypertension Performed By: #### T SH3 wRFLX, CBC, LIPID, CMP #### [facility] [address] [place] [address] Serum or plasma anion gap de terminationOrdered By: Vicky Oshea on 10-04-2023 Anion gap [Moles/Vol] 13.9 mmol/L Normal 6.0-15.0 [facility] Comment on above: Order Comment: Reaso n for Exam Essential hypertension Performed By: #### T SH3 wRFLX, CBC, LIPID, CMP #### [facility] [address] [place] [address] Serum or plasma high density lipoprotein (HDL) cholesterol measurementOrdered By: Vicky Oshea on 10-04-2023 Cholesterol in HDL [Mass/Vol] 27 mg/dL Normal 23-92 [facility] Comment on above: HDL CHOL ATP-III CLA SSIFICATION Cardiovascular RiskHDL > or equal to 60 mg/dL LOWHDL < 40 mg/dL HIGH Order Comment: Reaso n for Exam Essential hypertension Result Comment: HDL CHOL ATP-III CLASSIFICATION Cardiovascular Risk HDL > or equal to 60 mg/dL LOW HDL < 40 mg/dL HIGH Performed By: #### T SH3 wRFLX, CBC, LIPID, CMP #### [facility] [address] [place] [address] Serum or plasma total choles terol/high density lipoprotein (HDL) cholesterol mass ratOrdered By: Vicky Oshea on 10-04-2023 Cholesterol.total/Chol esterol in HDL [Mass ratio] 5.1 {ratio} Normal <5.0 [facility] Comment on above: Order Comment: Reaso n for Exam Essential hypertension Performed By: #### T SH3 wRFLX, CBC, LIPID, CMP #### [place] [address] [place] Sodium [Moles/volume] in Ser um or PlasmaOrdered By: Vicky Oshea on 10-04-2023 Sodium [Moles/Vol] 139 mmol/L Normal 136-145 [facility] Comment on above: Order Comment: Reaso n for Exam Essential hypertension Performed By: #### T SH3 wRFLX, CBC, LIPID, CMP #### [facility] [address] [place] [address] Thyroid Stim Hormone w/Rflxo n 10-04-2023 Thyroid Stim Hormone w/Rflx 1.56 u[iU]/mL Normal 0.45-5.33 [facility] Comment on above: Order Comment: Reaso n for Exam Essential hypertension Result Comment: PERF ORMED BY: [place] [address] PATHOLOGIST ENERGY TECHNICIAN DAVID VELAZQUEZ M.D. Performed By: #### T SH3 wRFLX, CBC, LIPID, CMP #### [facility] [address] [place] [address] [place] Thyrotropin [Units/volume] i n Serum or PlasmaOrdered By: Vicky Oshea on 10-04-2023 TSH Qn 1.56 m[IU]/L 0.45-5.33 [facility] Triglyceride [Mass/volume] i n Serum or PlasmaOrdered By: Vicky Oshea on 10-04-2023 Triglyceride [Mass/Vol] 160 mg/dL 0-149 [facility] Comment on above: TRIG ATP III CLASSIF ICATIONTRIG less than 150 mg/dL NormalTRIG 150-199 mg/dL Borderline highTRIG 200-500 mg/dL High TRIG greater than 500 mg/dL Very highStandard traceable to the Center for Disease Conrtrol and Prevention (CDC) test method. Urea nitrogen [Mass/volume] in Serum or PlasmaOrdered By: Vicky Oshea on 10-04-2023 Urea nitrogen [Mass/Vol] 8 mg/dL Normal 7-25 [facility] Comment on above: Order Comment: Reaso n for Exam Essential hypertension Performed By: #### T SH3 wRFLX, CBC, LIPID, CMP #### [facility] [address] [place] [address] [place] Alanine aminotransferase [En zymatic activity/volume] in Serum or PlasmaOrdered By: Katelyn Bartholomew on 09-27-2023 ALT [Catalytic activity/Vol] 19 U/L Normal 7-52 [facility] Comment on above: Performed By: #### T SH3 wRFLX, CBC, LIPID, CMP #### [facility] [address] [place] [address] [place] Albumin [Mass/volume] in Ser um or Plasma by Bromocresol green (BCG) dye binding methoOrdered By: Katelyn Bartholomew on 09-27-2023 Albumin BCG dye [Mass/Vol] 4.4 g/dL 3.5-5.7 [facility] Alkaline phosphatase [Enzyma tic activity/volume] in Serum or PlasmaOrdered By: Katelyn Bartholomew on 09-27-2023 ALP [Catalytic activity/Vol] 108 U/L High 34-104 [facility] Comment on above: Performed By: #### T SH3 wRFLX, CBC, LIPID, CMP #### [facility] [address] [place] [id number] [place] Aspartate aminotransferase [ Enzymatic activity/volume] in Serum or PlasmaOrdered By: Katelyn Bartholomew on 09-27-2023 AST [Catalytic activity/Vol] 32 U/L Normal 13-39 [facility] Comment on above: Performed By: #### T SH3 wRFLX, CBC, LIPID, CMP #### [address] Automated basophil %Ordered By: Katelyn Bartholomew on 09-27-2023 Basophils/100 WBC (Bld) 1.9 % Normal . [facility] Comment on above: Performed By: #### T SH3 wRFLX, CBC, LIPID, CMP #### [address] Automated basophil countOrde red By: Katelyn Bartholomew on 09-27-2023 Basophils (Bld) [#/Vol] 0.2 10*3/uL Normal 0.0-0.2 [facility] Comment on above: Result Comment: PERF ORMED BY: [place] [address] PATHOLOGIST ENERGY TECHNICIAN DAVID VELAZQUEZ M.D. Performed By: #### T SH3 wRFLX, CBC, LIPID, CMP #### [address] Automated blood monocyte cou ntOrdered By: Katelyn Bartholomew on 09-27-2023 Monocytes (Bld) [#/Vol] 0.5 10*3/uL Normal 0.0-0.8 [facility] Comment on above: Performed By: #### T SH3 wRFLX, CBC, LIPID, CMP #### [address] Automated eosinophil %Ordere d By: Katelyn Bartholomew on 09-27-2023 Eosinophils/100 WBC (Bld) 1.6 % Normal . [facility] Comment on above: Performed By: #### T SH3 wRFLX, CBC, LIPID, CMP #### [address] Automated eosinophil countOr dered By: Katelyn Bartholomew on 09-27-2023 Eosinophils (Bld) [#/Vol] 0.2 10*3/uL Normal 0.0-0.45 [facility] Comment on above: Performed By: #### T SH3 wRFLX, CBC, LIPID, CMP #### [facility] [address] [place] [address] Automated monocyte %Ordered By: Katelyn Barthloomew on 09-27-2023 Monocytes/100 WBC (Bld) 5.3 % Normal . [facility] Comment on above: Performed By: #### T SH3 wRFLX, CBC, LIPID, CMP #### [facility] [address] [place] [address] Automated neutrophil %Ordere d By: Katelyn Bartholomew on 09-27-2023 Neutrophils/100 WBC (Bld) 52.4 % Normal . [facility] Comment on above: Performed By: #### T SH3 wRFLX, CBC, LIPID, CMP #### [address] BNP ser/plasOrdered By: Brielle Bartholomew on 09-27-2023 Natriuretic peptide B (Bld) [Mass/Vol] 28.0 pg/mL Normal 5-100 [facility] Comment on above: Result Comment: PERF ORMED BY: [place] [address] PATHOLOGIST ENERGY TECHNICIAN DAVID VELAZQUEZ M.D. Performed By: #### T SH3 wRFLX, CBC, LIPID, CMP #### [address] Bilirubin.total [Mass/volume ] in Serum or PlasmaOrdered By: Katelyn Bartholomew on 09-27-2023 Bilirubin [Mass/Vol] 0.6 mg/dL Normal 0.3-1.0 [facility] Comment on above: Performed By: #### T SH3 wRFLX, CBC, LIPID, CMP #### [facility] [facility] [address] [place] [address] Calcium [Mass/volume] in Ser um or PlasmaOrdered By: Katelyn Bartholomew on 09-27-2023 Calcium [Mass/Vol] 9.2 mg/dL Normal 8.6-10.3 [facility] Comment on above: Performed By: #### T SH3 wRFLX, CBC, LIPID, CMP #### [address] Carbon dioxide, total [Moles /volume] in Serum or PlasmaOrdered By: Katelyn Bartholomew on 09-27-2023 CO2 [Moles/Vol] 23.4 mmol/L Normal 21.0-31.0 [facility] Comment on above: Performed By: #### T SH3 wRFLX, CBC, LIPID, CMP #### [address] Chloride [Moles/volume] in S tiffanie or PlasmaOrdered By: Katelyn Bartholomew on 09-27-2023 Chloride [Moles/Vol] 104 mmol/L Normal 98-107 [facility] Comment on above: Performed By: #### T SH3 wRFLX, CBC, LIPID, CMP #### [address] Complete Blood Count Auto Di ffon 09-27-2023 Mean Corpuscular HGB Conc 33.4 g/dL Normal 32.0-35.0 [facility] Comment on above: Performed By: #### T SH3 wRFLX, CBC, LIPID, CMP #### [address] Monocytes/100 WBC (Bld) 20.00 % Normal 0.00-20.00 [facility] Comment on above: Performed By: #### T SH3 wRFLX, CBC, LIPID, CMP #### [address] NRBC% 0.1 /100{WBC} Normal 0-0.5 [facility] Comment on above: Performed By: #### T SH3 wRFLX, CBC, LIPID, CMP #### [address] Comprehensive Metabolic Pane margarita 09-27-2023 Albumin [Mass/Vol] 4.4 g/dL Normal 3.5-5.7 [facility] Comment on above: Performed By: #### T SH3 wRFLX, CBC, LIPID, CMP #### [address] Creatinine Clr Calc Pharmacy 54.44 Normal [facility] Comment on above: Result Comment: PERF ORMED BY: [place] [address] PATHOLOGIST ENERGY TECHNICIAN DAVID VELAZQUEZ M.D. Performed By: #### T SH3 wRFLX, CBC, LIPID, CMP #### [place] [address] [place] GFR/1.73 sq M.predicted MDRD (S/P/Bld) [Vol rate/Area] mL/min/{1.73_m2} Normal [facility] Comment on above: Performed By: #### T SH3 wRFLX, CBC, LIPID, CMP #### [place] [address] [place] Creatinine [Mass/volume] in Serum or PlasmaOrdered By: Katelyn Bartholomew on 09-27-2023 Creatinine [Mass/Vol] 0.76 mg/dL Normal 0.60-1.20 [facility] Comment on above: Performed By: #### T SH3 wRFLX, CBC, LIPID, CMP #### [address] ECG 12 lead ECGon 09-27-2023 ECG 12 lead ECG [facility] [place] [address] [place] [address] Electrocardiograph Report Signed Patient: Kym Briscoe MR#: [id number] 744 : 1955 Acct:[id number] Age/Sex: 68 / F ADM Date: 09/27/23 Loc: ER Room: Type: [facility] ER Attending Dr: Ordering Provider: Katelyn Bartholomew APRN Date of Service: 09/27/2307/10/1923 ECG/ECG 12 lead ECG: Shortness of Breath/Dyspnea Copies to: Test Reason : Blood Pressure : 142/062 mmHG Vent. Rate : 055 BPM Atrial Rate : 055 BPM P-R Int : 114 ms QRS Dur : 076 ms QT Int : 420 ms P-R-T Axes : 030 073 -34 degrees QTc Int : 401 ms Sinus bradycardia T wave abnormality, consider anterolateral ischemia Abnormal ECG No previous ECGs available Confirmed by ALEX ENRIQUEZ MD ([id number]) on 09/28/2023 1:46:44 AM Referred By: Electronically Signed By:ALEX ENRIQUEZ MD Transcribed By: MUS Signed By Alex Enriquez MD 09/28/23 0146 Normal [facility] Erythrocyte distribution wid th [Ratio] by Automated countOrdered By: Katelyn Bartholomew on 09-27-2023 Erythrocyte distribution width (RBC) [Ratio] 14.5 % Normal 11.9-15.3 [facility] Comment on above: Performed By: #### T SH3 wRFLX, CBC, LIPID, CMP #### [facility] [address] [place] [address] [place] Erythrocytes [#/volume] in B lood by Automated countOrdered By: Katelyn Bartholomew on 09-27-2023 RBC (Bld) [#/Vol] 4.43 10*6/uL Normal 3.60-5.00 [facility] Comment on above: Performed By: #### T SH3 wRFLX, CBC, LIPID, CMP #### [facility] [address] [place] [id number] [place] Glucose [Mass/volume] in Ser um or PlasmaOrdered By: Katelyn Bartholomew on 09-27-2023 Glucose [Mass/Vol] 135 mg/dL High 70-100 [facility] Comment on above: ADA recommended refe rence rangeRandom Glucose Reference Range is dependent on time and content of last meal. Glucose of more than 200 mg/dL in a nonstressed, ambulatory subject supports the diagnosis of Diabetes Mellitus. Result Comment: [place] Glucose Reference Range is dependent on time and content of last meal. Glucose of more than 200 mg/dL in a nonstressed, ambulatory subject supports the diagnosis of Diabetes Mellitus. ADA recommended reference range Performed By: #### T SH3 wRFLX, CBC, LIPID, CMP #### [facility] [address] [place] [id number] [place] Hematocrit [Volume Fraction] of Blood by Automated countOrdered By: Katelyn Bartholomew on 09-27-2023 Hematocrit (Bld) [Volume fraction] 41.2 % Normal 34.0-46.4 [facility] Comment on above: Performed By: #### T SH3 wRFLX, CBC, LIPID, CMP #### [facility] [address] Hemoglobin [Mass/volume] in BloodOrdered By: Katelyn Bartholomew on 09-27-2023 Hemoglobin (Bld) [Mass/Vol] 13.7 g/dL Normal 11.8-15.4 [facility] Comment on above: Performed By: #### T SH3 wRFLX, CBC, LIPID, CMP #### [facility] [address] Leukocytes [#/volume] correc gilma for nucleated erythrocytes in Blood by Automated counOrdered By: Katelyn Bartholomew on 09-27-2023 WBC corrected for nucl RBC Auto (Bld) [#/Vol] 10.1 10*3/uL 3.8-11.6 [facility] Leukocytes [#/volume] in Blo od by Automated countOrdered By: Katelyn Bartholomew on 09-27-2023 WBC (Bld) [#/Vol] 10.1 10*3/uL Normal 3.8-11.6 [facility] Comment on above: Performed By: #### T SH3 wRFLX, CBC, LIPID, CMP #### [facility] [address] [place] [address] [place] Lymphocytes [#/volume] in Bl ood by Automated countOrdered By: Katelyn Bartholomew on 09-27-2023 Lymphocytes (Bld) [#/Vol] 3.9 10*3/uL Normal 1.00-4.8 [facility] Comment on above: Performed By: #### T SH3 wRFLX, CBC, LIPID, CMP #### [facility] [address] [place] [address] [place] Lymphocytes/100 leukocytes i n Blood by Automated countOrdered By: Katelyn Bartholomew on 09-27-2023 Lymphocytes/100 WBC (Bld) 38.8 % Normal . [facility] Comment on above: Performed By: #### T SH3 wRFLX, CBC, LIPID, CMP #### [facility] [address] MCH [Entitic mass] by Automa gilma countOrdered By: Katelyn Bartholomew on 09-27-2023 MCH (RBC) [Entitic mass] 31.0 pg Normal 24.7-34.3 [facility] Comment on above: Performed By: #### T SH3 wRFLX, CBC, LIPID, CMP #### [facility] [address] [place] [address] MCHC Auto (RBC) [Mass/Vol]Or dered By: Katelyn Bartholomew on 09-27-2023 MCHC (RBC) [Mass/Vol] 33.4 g/dL 32.0-35.0 [facility] MCV [Entitic volume] by Auto mated countOrdered By: Katelyn Bartholomew on 09-27-2023 MCV (RBC) [Entitic vol] 92.8 fL Normal 80-100 [facility] Comment on above: Performed By: #### T SH3 wRFLX, CBC, LIPID, CMP #### [facility] [address] [place] [address] Monocyte distribution width [Entitic volume] in Blood by AutomatedOrdered By: Katelyn Bartholomew on 09-27-2023 Monocyte distribution width Auto (Bld) [Entitic vol] 20.00 % 0.00-20.00 [facility] Neutrophils [#/volume] in Bl ood by Automated countOrdered By: Katelyn Bartholomew on 09-27-2023 Neutrophils (Bld) [#/Vol] 5.3 10*3/uL Normal 1.8-7.7 [facility] Comment on above: Performed By: #### T SH3 wRFLX, CBC, LIPID, CMP #### [facility] [address] [place] [address] No Panel InformationOrdered By: Katelyn Bartholomew on 09-27-2023 Estimated GFR (CKD-EPI) > 60.0 mL/Min [facility] Creatinine Clearance (Chem 54.44 [facility] Nucleated erythrocytes [Pres ence] in Blood by Automated countOrdered By: Katelyn Bartholomew on 03-12-2024 Nucleated RBC Auto Ql (Bld) 0.1 /100{WBC} 0-0.5 [facility] Platelet mean volume [Entiti c volume] in Blood by Automated countOrdered By: Katelyn Bartholomew on 09-27-2023 Platelet mean volume (Bld) [Entitic vol] 9.4 fL Normal 6.3-10.7 [facility] Comment on above: Performed By: #### T SH3 wRFLX, CBC, LIPID, CMP #### [facility] [address] Platelets [#/volume] in Bloo d by Automated countOrdered By: Katelyn Bartholomew on 09-27-2023 Platelets (Bld) [#/Vol] 182 10*3/uL Normal 150-450 [facility] Comment on above: Performed By: #### T SH3 wRFLX, CBC, LIPID, CMP #### [facility] [address] [place] [address] Potassium [Moles/volume] in Serum or PlasmaOrdered By: Katelyn Bartholomew on 09-27-2023 Potassium [Moles/Vol] 3.6 mmol/L Normal 3.5-5.1 [facility] Comment on above: Performed By: #### T SH3 wRFLX, CBC, LIPID, CMP #### [facility] [address] [place] [address] Protein [Mass/volume] in Ser um or PlasmaOrdered By: Katelyn Bartholomew on 09-27-2023 Protein [Mass/Vol] 7.6 g/dL Normal 6.4-8.9 [facility] Comment on above: Performed By: #### T SH3 wRFLX, CBC, LIPID, CMP #### [facility] [address] [place] [address] Serum globulin measurement b y calculation (mass/volume)Ordered By: Katelyn Bartholomew on 09-27-2023 Globulin (S) [Mass/Vol] 3.2 g/dL Normal [facility] Comment on above: Performed By: #### T SH3 wRFLX, CBC, LIPID, CMP #### [facility] [address] [place] [address] Serum or plasma albumin/glob ulin mass ratioOrdered By: Katelyn Bartholomew on 09-27-2023 Albumin/Globulin [Mass ratio] 1.4 {ratio} Normal [facility] Comment on above: Performed By: #### T SH3 wRFLX, CBC, LIPID, CMP #### [facility] [address] Serum or plasma anion gap de terminationOrdered By: Katelyn Bartholomew on 09-27-2023 Anion gap [Moles/Vol] 14.2 mmol/L Normal 6.0-15.0 [facility] Comment on above: Performed By: #### T SH3 wRFLX, CBC, LIPID, CMP #### [facility] [address] [place] [address] Sodium [Moles/volume] in Ser um or PlasmaOrdered By: Katelyn Bartholomew on 09-27-2023 Sodium [Moles/Vol] 138 mmol/L Normal 136-145 [facility] Comment on above: Performed By: #### T SH3 wRFLX, CBC, LIPID, CMP #### [address] Troponin I High Sensitivityo n 09-27-2023 Troponin I High Sensitivity 4.6 pg/mL Normal 0.0-15.0 [facility] Comment on above: Result Comment: PERF ORMED BY: [place] [address] PATHOLOGIST ENERGY TECHNICIAN DAVID VELAZQUEZ M.D. Performed By: #### T SH3 wRFLX, CBC, LIPID, CMP #### [facility] [address] [place] [address] Troponin I.cardiac [Mass/vol ume] in Serum or Plasma by Detection limit <= 0.01 ng/Ordered By: Katelyn Bartholomew on 09-27-2023 Troponin I.cardiac DL <= 0.01 ng/mL [Mass/Vol] 4.6 pg/mL 0.0-15.0 [facility] Urea nitrogen [Mass/volume] in Serum or PlasmaOrdered By: Katelyn Bartholomew on 09-27-2023 Urea nitrogen [Mass/Vol] 5 mg/dL Low 7-25 [facility] Comment on above: Performed By: #### T SH3 wRFLX, CBC, LIPID, CMP #### [facility] [address] [place] [id number] [facility] XR chest 2V*on 09-27-2023 XR chest 2V* [facility] [place] [address] [place] [address] XRay Report Signed Patient: Kym Briscoe MR#: [id number] 744 : 1955 Acct:[id number] Age/Sex: 68 / F ADM Date: 09/27/23 Loc: ER Room: Type: [facility] ER Attending Dr: Copies to: Katelyn Bartholomew APRN Ordering Provider: Katelyn Bartholomew APRN Date of Service: 09/27/23 XR/XR chest 2V*: Shortness of Breath/Dyspnea XR chest 2V* 09/27/2023 7:24 PM SIGNS AND SYMPTOMS: Increasing shortness of breath, cough PROTOCOL: Frontal and lateral radiographs of the chest COMPARISON: None FINDINGS: The trachea is midline. Atherosclerotic changes are present in the thoracic aorta. The heart and mediastinal structures are within normal limits. There is perihilar vascular prominence and interstitial prominence suggesting congestive heart failure/volume overload. The bony thorax is intact. Degenerative changes are noted in the thoracic spine. XR/XR chest 2V* IMPRESSION: There is perihilar vascular prominence and interstitial prominence suggesting congestive heart failure/volume overload. Impression dictated by: Alexei Cedeno M.D.09/27/2023 7:53 PM Dictation Location: [place] [address] Transcribed By: [facility] 09/27/231952 Dictated By: Alexei Cedeno II, MD 09/27/231951 Signed By: 09/27/231952 Normal [facility] Vital Signs Date Time Vital Sign Value Performing Clinician Facility 09-05-2024 19:30-0500 Diastolic blood pressure 49 mm[Hg] Senia Sweeney DO Work Phone: [facility] 09-05-2024 19:30-0500 Heart rate 52 /min Senia Sweeney DO Work Phone: [facility] 09-05-2024 19:30-0500 Respiratory rate 13 /min Senia Sweeney DO Work Phone: [facility] 09-05-2024 19:30-0500 SaO2% (BldA) [Mass fraction] 97 % Senia Sweeney DO Work Phone: [facility] 09-05-2024 19:30-0500 Systolic blood pressure 116 mm[Hg] Senia Sweeney DO Work Phone: [facility] 09-05-2024 17:24-0500 Body temperature 98.49 [degF] Senia Sweeney DO Work Phone: [facility] 09-03-2024 10:38-0500 Heart rate 78 /min Jseus Lee I, DO Work Phone: [facility] 09-03-2024 10:38-0500 Respiratory rate 16 /min Jesus Lee I, DO Work Phone: [facility] 09-03-2024 10:38-0500 SaO2% (BldA) [Mass fraction] 95 % Jesus Lee I, DO Work Phone: [facility] 09-03-2024 09:39-0500 Diastolic blood pressure 75 mm[Hg] Jesus Lee I, DO Work Phone: [facility] 09-03-2024 09:39-0500 Systolic blood pressure 156 mm[Hg] Jesus Lee I, DO Work Phone: [facility] 09-03-2024 06:41-0500 Body temperature 98.1 [degF] Jesus Lee I, DO Work Phone: [facility] 09-01-2024 04:15-0500 Body mass index (BMI) [Ratio] 23.38 kg/m2 Jesus Lee I, DO Work Phone: [facility] 09-01-2024 04:15-0500 Body weight 52.5 kg Jesus Lee I, DO Work Phone: [facility] 08-28-2024 12:46-0500 Body height 149.9 cm Jesus Lee I, DO Work Phone: [facility] 08-28-2024 10:00-0500 Diastolic blood pressure 54 mm[Hg] Vicky Spasic GRAPPLE YARDER OPERATOR-C Work Phone: [facility] 08-28-2024 10:00-0500 Heart rate 76 /min Vicky Spasic GRAPPLE YARDER OPERATOR-C Work Phone: [facility] 08-28-2024 10:00-0500 Inhaled oxygen flow rate 2 L/min Vicky Spasic GRAPPLE YARDER OPERATOR-C Work Phone: [facility] 08-28-2024 10:00-0500 Respiratory rate 16 /min Vicky Spasic GRAPPLE YARDER OPERATOR-C Work Phone: [facility] 08-28-2024 10:00-0500 SaO2% (BldA) [Mass fraction] 94 % Vicky Spasic GRAPPLE YARDER OPERATOR-C Work Phone: [facility] 08-28-2024 10:00-0500 Systolic blood pressure 97 mm[Hg] Vicky Spasic GRAPPLE YARDER OPERATOR-C Work Phone: [facility] 08-28-2024 09:16-0500 Body height 149.86 cm Vicky Spasic GRAPPLE YARDER OPERATOR-C Work Phone: [facility] 08-28-2024 09:16-0500 Body temperature 99.4 [degF] Vicky Spasic GRAPPLE YARDER OPERATOR-C Work Phone: [facility] 08-28-2024 09:16-0500 Body weight 52.16 kg Vicky Spasic GRAPPLE YARDER OPERATOR-C Work Phone: [facility] 07-23-2024 14:10-0500 Body temperature 97.8 [degF] Vicky Spasic GRAPPLE YARDER OPERATOR-C Work Phone: [facility] 07-23-2024 14:10-0500 Body weight 50.8 kg Vicky Spasic GRAPPLE YARDER OPERATOR-C Work Phone: [facility] 07-23-2024 14:10-0500 Diastolic blood pressure 74 mm[Hg] Vicky Spasic GRAPPLE YARDER OPERATOR-C Work Phone: [facility] 07-23-2024 14:10-0500 Heart rate 54 /min Vicky Spasic GRAPPLE YARDER OPERATOR-C Work Phone: [facility] 07-23-2024 14:10-0500 Respiratory rate 20 /min Vicky Spasic GRAPPLE YARDER OPERATOR-C Work Phone: [facility] 07-23-2024 14:10-0500 SaO2% (BldA) [Mass fraction] 93 % Vicky Spasic GRAPPLE YARDER OPERATOR-C Work Phone: [facility] 07-23-2024 14:10-0500 Systolic blood pressure 171 mm[Hg] Vicky Spasic GRAPPLE YARDER OPERATOR-C Work Phone: [facility] 05-25-2024 14:37-0500 Body temperature 97.7 [degF] Vicky Spasic GRAPPLE YARDER OPERATOR-C Work Phone: [facility] 05-25-2024 14:37-0500 Body weight 56.24 kg Vicky Spasic GRAPPLE YARDER OPERATOR-C Work Phone: [facility] 05-25-2024 14:37-0500 Diastolic blood pressure 63 mm[Hg] Vicky Spasic GRAPPLE YARDER OPERATOR-C Work Phone: [facility] 05-25-2024 14:37-0500 Heart rate 72 /min Vicky Spasic GRAPPLE YARDER OPERATOR-C Work Phone: [facility] 05-25-2024 14:37-0500 Respiratory rate 18 /min Vicky Velazquezc GRAPPLE YARDER OPERATOR-C Work Phone: [facility] 05-25-2024 14:37-0500 SaO2% (BldA) [Mass fraction] 94 % Vicky Velazquezc GRAPPLE YARDER OPERATOR-C Work Phone: [facility] 05-25-2024 14:37-0500 Systolic blood pressure 105 mm[Hg] Vicky Mcbridedrew GRAPPLE YARDER OPERATOR-C Work Phone: [facility] 05-17-2024 09:05-0400 Diastolic blood pressure 52 mm[Hg] Mary Ford MD [facility] [employer] 05-17-2024 09:05-0400 Heart rate 100 /min Mary Ford MD Work Phone[facility] [employer] 05-17-2024 09:05-0400 Respiratory rate 20 /min Mary Ford MD Work Phone[facility] 05-17-2024 09:05-0400 SaO2% (BldA) [Mass fraction] 97 % Mary Ford MD Work Phone[facility] 05-17-2024 09:05-0400 Systolic blood pressure 103 mm[Hg] Mary Ford MD Work Phone[facility] 05-17-2024 07:17-0400 Body height 149.9 cm Mary Ford MD Work Phone: [facility] [employer] 05-17-2024 07:17-0400 Body mass index (BMI) [Ratio] 24.24 kg/m2 Mary Ford MD Work Phone: [facility] [employer] 05-17-2024 07:17-0400 Body temperature 97.59 [degF] Mary Ford MD Work Phone: [facility] [employer] 05-17-2024 07:17-0400 Body weight 54.43 kg Mary Ford MD Work Phone: [facility] 05-12-2024 11:54-0400 Body temperature 97.9 [degF] GRAPPLE YARDER OPERATOR-C Vicky Spasic Work Phone: [facility] 05-12-2024 11:54-0400 Diastolic blood pressure 72 mm[Hg] GRAPPLE YARDER OPERATOR-C Vicky Spasic Work Phone: [facility] 05-12-2024 11:54-0400 Heart rate 45 /min GRAPPLE YARDER OPERATOR-C Vicky Spasic Work Phone: [facility] 05-12-2024 11:54-0400 Respiratory rate 12 /min GRAPPLE YARDER OPERATOR-C Vicky Spasic Work Phone: [facility] 05-12-2024 11:54-0400 SaO2% (BldA) [Mass fraction] 95 % GRAPPLE YARDER OPERATOR-C Vicky Spasic Work Phone: [facility] 05-12-2024 11:54-0400 Systolic blood pressure 134 mm[Hg] GRAPPLE YARDER OPERATOR-C Vicky Spasic Work Phone: [facility] 05-12-2024 06:20-0400 Body weight 56.3 kg GRAPPLE YARDER OPERATOR-C Vicky Spasic Work Phone: [facility] 05-11-2024 00:30-0400 Body height 149.86 cm GRAPPLE YARDER OPERATOR-C Vicyk Spasic Work Phone: [facility] 05-10-2024 23:00-0400 Diastolic blood pressure 61 mm[Hg] GRAPPLE YARDER OPERATOR-C Vicky Spasic Work Phone: [facility] 05-10-2024 23:00-0400 Heart rate 56 /min GRAPPLE YARDER OPERATOR-C Vicky Spasic Work Phone: [facility] 05-10-2024 23:00-0400 Respiratory rate 20 /min GRAPPLE YARDER OPERATOR-C Vicky Spasic Work Phone: [facility] 05-10-2024 23:00-0400 SaO2% (BldA) [Mass fraction] 90 % GRAPPLE YARDER OPERATOR-C Vicyk Spasic Work Phone: [facility] 05-10-2024 23:00-0400 Systolic blood pressure 135 mm[Hg] GRAPPLE YARDER OPERATOR-C Vicky Spasic Work Phone: [facility] 05-10-2024 15:42-0400 Body height 149.86 cm GRAPPLE YARDER OPERATOR-C Vicky Spasic Work Phone: [facility] 05-10-2024 15:42-0400 Body temperature 98.2 [degF] GRAPPLE YARDER OPERATOR-C Vicky Spasic Work Phone: [facility] 05-10-2024 15:42-0400 Body weight 56.69 kg GRAPPLE YARDER OPERATOR-C Vicky Spasic Work Phone: [facility] 04-25-2024 13:31-0400 Diastolic blood pressure 72 mm[Hg] GRAPPLE YARDER OPERATOR-C Vicky Spasic Work Phone: [facility] 04-25-2024 13:31-0400 Heart rate 58 /min GRAPPLE YARDER OPERATOR-C Vicky Spasic Work Phone: [facility] 04-25-2024 13:31-0400 Respiratory rate 16 /min GRAPPLE YARDER OPERATOR-C Vicky Spasic Work Phone: [facility] 04-25-2024 13:31-0400 SaO2% (BldA) [Mass fraction] 99 % GRAPPLE YARDER OPERATOR-C Vicky Spasic Work Phone: [facility] 04-25-2024 13:31-0400 Systolic blood pressure 136 mm[Hg] GRAPPLE YARDER OPERATOR-C Vicky Spasic Work Phone: [facility] 04-25-2024 11:29-0400 Body height 149.86 cm GRAPPLE YARDER OPERATOR-C Vicky Spasic Work Phone: [facility] 04-25-2024 11:29-0400 Body weight 53.52 kg GRAPPLE YARDER OPERATOR-C Vicky Spasic Work Phone: [facility] 04-03-2024 10:59-0400 Body height 149.86 cm GRAPPLE YARDER OPERATOR-C Vicky Spasic Work Phone: [facility] 04-03-2024 10:59-0400 Body mass index (BMI) [Ratio] 24 kg/m2 GRAPPLE YARDER OPERATOR-C Vicky Spasic Work Phone: [facility] 04-03-2024 10:59-0400 Body temperature 97.2 [degF] GRAPPLE YARDER OPERATOR-C Vicky Spasic Work Phone: [facility] 04-03-2024 10:59-0400 Body weight 53.97 kg GRAPPLE YARDER OPERATOR-C Vicky Spasic Work Phone: [facility] 04-03-2024 10:59-0400 Diastolic blood pressure 48 mm[Hg] GRAPPLE YARDER OPERATOR-C Vicky Spasic Work Phone: [facility] 04-03-2024 10:59-0400 Heart rate 54 /min GRAPPLE YARDER OPERATOR-C Vicky Spasic Work Phone: [facility] 04-03-2024 10:59-0400 Respiratory rate 20 /min GRAPPLE YARDER OPERATOR-C Vicky Spasic Work Phone: [facility] 04-03-2024 10:59-0400 SaO2% (BldA) [Mass fraction] 96 % GRAPPLE YARDER OPERATOR-C Vicky Spasic Work Phone: [facility] 04-03-2024 10:59-0400 Systolic blood pressure 109 mm[Hg] GRAPPLE YARDER OPERATOR-C Vicky Spasic Work Phone: [facility] 04-03-2024 08:54-0400 Body height 149.86 cm GRAPPLE YARDER OPERATOR-C Vicky Spasic Work Phone: [facility] 04-03-2024 08:54-0400 Body mass index (BMI) [Ratio] 24.2 kg/m2 GRAPPLE YARDER OPERATOR-C Vicky Spasic Work Phone: [facility] 04-03-2024 08:54-0400 Body temperature 98.1 [degF] GRAPPLE YARDER OPERATOR-C Vicky Spasic Work Phone: [facility] 04-03-2024 08:54-0400 Body weight 54.43 kg GRAPPLE YARDER OPERATOR-C Vicky Spasic Work Phone: [facility] 04-03-2024 08:54-0400 Diastolic blood pressure 64 mm[Hg] GRAPPLE YARDER OPERATOR-C Vicky Spasic Work Phone: [facility] 04-03-2024 08:54-0400 Heart rate 55 /min GRAPPLE YARDER OPERATOR-C Vicky Spasic Work Phone: [facility] 04-03-2024 08:54-0400 Respiratory rate 20 /min GRAPPLE YARDER OPERATOR-C Vicky Spasic Work Phone: [facility] 04-03-2024 08:54-0400 SaO2% (BldA) [Mass fraction] 95 % GRAPPLE YARDER OPERATOR-C Vicky Spasic Work Phone: [facility] 04-03-2024 08:54-0400 Systolic blood pressure 103 mm[Hg] GRAPPLE YARDER OPERATOR-C Vicky Spasic Work Phone: [facility] 02-15-2024 10:10-0400 Body height 149.86 cm GRAPPLE YARDER OPERATOR-C Vicky Spasic Work Phone: [facility] 02-15-2024 10:10-0400 Body mass index (BMI) [Ratio] 24.8 kg/m2 GRAPPLE YARDER OPERATOR-C Vicky Spasic Work Phone: [facility] 02-15-2024 10:10-0400 Body temperature 97.6 [degF] GRAPPLE YARDER OPERATOR-C Vicky Spasic Work Phone: [facility] 02-15-2024 10:10-0400 Body weight 55.79 kg GRAPPLE YARDER OPERATOR-C Vicky Spasic Work Phone: [facility] 02-15-2024 10:10-0400 Diastolic blood pressure 73 mm[Hg] GRAPPLE YARDER OPERATOR-C Vicky Spasic Work Phone: [facility] 02-15-2024 10:10-0400 Heart rate 61 /min GRAPPLE YARDER OPERATOR-C Vicky Spasic Work Phone: [facility] 02-15-2024 10:10-0400 Respiratory rate 18 /min GRAPPLE YARDER OPERATOR-C Vicky Spasic Work Phone: [facility] 02-15-2024 10:10-0400 SaO2% (BldA) [Mass fraction] 93 % GRAPPLE YARDER OPERATOR-C Vicky Spasic Work Phone: [facility] 02-15-2024 10:10-0400 Systolic blood pressure 118 mm[Hg] GRAPPLE YARDER OPERATOR-C Vicky Spasic Work Phone: [facility] 10-22-2023 15:15-0400 Diastolic blood pressure 87 mm[Hg] PHYSICIAN NO [facility] 10-22-2023 15:15-0400 Heart rate 63 /min PHYSICIAN NO [facility] 10-22-2023 15:15-0400 Respiratory rate 20 /min PHYSICIAN [facility] 10-22-2023 15:15-0400 SaO2% (BldA) [Mass fraction] 93 % PHYSICIAN NO [facility] 10-22-2023 15:15-0400 Systolic blood pressure 170 mm[Hg] PHYSICIAN NO [facility] 10-22-2023 13:45-0400 Body height 149.86 cm PHYSICIAN NO [facility] 10-22-2023 13:45-0400 Body temperature 97.6 [degF] PHYSICIAN NO [facility] 10-22-2023 13:45-0400 Body weight 63.6 kg PHYSICIAN NO [facility] 09-27-2023 22:29-0400 Diastolic blood pressure 78 mm[Hg] PHYSICIAN NO [facility] 09-27-2023 22:29-0400 Respiratory rate 20 /min PHYSICIAN NO [facility] 09-27-2023 22:29-0400 SaO2% (BldA) [Mass fraction] 93 % PHYSICIAN NO [facility] 09-27-2023 22:29-0400 Systolic blood pressure 136 mm[Hg] PHYSICIAN NO [facility] 09-27-2023 22:00-0400 Heart rate 55 /min PHYSICIAN NO [facility] 09-27-2023 19:14-0400 Body height 149.86 cm PHYSICIAN NO [facility] 09-27-2023 19:14-0400 Body weight 63.5 kg PHYSICIAN NO [facility] 09-27-2023 19:13-0400 Body temperature 98.4 [degF] PHYSICIAN NO [facility] Encounters Encounter Date Encounter Type Care Provider Facility Start: 09-18-2024 End: 09-18-2024 ambulatory Vicky E Spasic GRAPPLE YARDER OPERATOR-C Work Phone: [facility] Work Phone: Start: 09-18-2024 End: 09-18-2024 Departed Referred Vicky Spasic GRAPPLE YARDER OPERATOR-C [facility] Start: 09-11-2024 End: 09-11-2024 ambulatory Vicky E Spasic GRAPPLE YARDER OPERATOR-C Work Phone: [facility] Work Phone: Start: 09-11-2024 End: 09-11-2024 Departed Referred Vicky Spasic GRAPPLE YARDER OPERATOR-C Work Phone: [facility] Start: 09-05-2024 End: 09-05-2024 Emergency department patient visit Senia Sweeney DO Work Phone: [facility] Comment on above: COPD exacerbation (H CC) (Primary Dx) Start: 08-28-2024 End: 09-03-2024 Evaluation and management of inpatient TOMI Morales BOAZ CHAVEZ [facility] Comment on above: Community acquired p neumonia, unspecified laterality (Primary Dx); Influenza A; COPD exacerbation (HCC); Chest pain, unspecified type; Shortness of breath; Congestive heart failure, unspecified HF chronicity, unspecified heart failure type (HCC) Start: 08-28-2024 End: 08-28-2024 Emergency department patient visit Vicky Oshea GRAPPLE YARDER OPERATOR-C Work Phone: [facility]-Emergency Room Work Phone: Start: 07-23-2024 Registered Recurring Vicky russell GRAPPLE YARDER OPERATOR-C [facility] Work Phone: Start: 07-23-2024 End: 07-23-2024 ambulatory Vicky Oshea GRAPPLE YARDER OPERATOR-C Work Phone: [facility] Work Phone: Start: 07-23-2024 End: 07-23-2024 Patient encounter procedure Vicky Oshea GRAPPLE YARDER OPERATOR-C Work Phone: [facility] Ambulatory Work Phone: Start: 07-19-2024 End: 07-19-2024 ambulatory Vicky Oshea GRAPPLE YARDER OPERATOR-C Work Phone: [facility] Work Phone: Start: 07-19-2024 End: 07-19-2024 Patient encounter procedure Vickydanya Oshea GRAPPLE YARDER OPERATOR-C Work Phone: [facility]-Lab [place] Work Phone: Start: 07-19-2024 End: 07-19-2024 External Result Encounter Tomi Sandra DO Work Phone: [facility] External Department Unsolicited Start: 07-19-2024 End: 07-19-2024 External Result Encounter Tomi Sandra DO Work Phone: [facility] External Department Unsolicited Start: 06-20-2024 End: 06-20-2024 Patient encounter procedure Vicky Oshea GRAPPLE YARDER OPERATOR-C Work Phone: [facility]-Ultrasound [place] Work Phone: Start: 06-20-2024 End: 06-20-2024 ambulatory Vicky E Spasic Facility:[facility] Start: 06-05-2024 End: 06-05-2024 ambulatory Vicky E Spasic GRAPPLE YARDER OPERATOR-C Work Phone: [facility] Work Phone: Start: 06-05-2024 End: 06-05-2024 Departed Referred Vicky Reedsic GRAPPLE YARDER OPERATOR-C Work Phone: [facility]-LA [facility] Start: 05-25-2024 End: 05-25-2024 ambulatory Vicky Enrique Spasic GRAPPLE YARDER OPERATOR-C Work Phone: [facility] Work Phone: Start: 05-25-2024 End: 05-25-2024 Patient encounter procedure Vicky Reedsic GRAPPLE YARDER OPERATOR-C Work Phone: [facility] Work Phone: Start: 05-21-2024 Non-patient / Non-visit Vicky Reedsic GRAPPLE YARDER OPERATOR-C Work Phone: [facility] Out[facility] Work Phone: Start: 05-17-2024 End: 05-17-2024 ambulatory TOMI SANDRA [facility] Start: 05-17-2024 End: 05-17-2024 Subsequent hospital visit by physician Mary Ford MD Work Phone: [facility] [place] Comment on above: Abnormal gastrointes tinal PET scan Start: 05-10-2024 End: 05-12-2024 Evaluation and management of inpatient GRAPPLE YARDER OPERATOR-C Vicky Reedsic Work Phone: [facility] Work Phone: Start: 04-25-2024 Non-patient / Non-visit GRAPPLE YARDER OPERATOR-C L ambar Spasic Work Phone: [facility] Gastroenterology Work Phone: Start: 04-25-2024 End: 04-25-2024 Admission to same day surgery center GRAPPLE YARDER OPERATOR-C Vicky Spasic Work Phone: [facility]-Digestive Health Work Phone: Start: 04-25-2024 End: 04-25-2024 ambulatory GRAPPLE YARDER OPERATOR-C Vicky E Spasic Work Phone: [facility] Work Phone: Start: 04-12-2024 End: 04-12-2024 Patient encounter procedure GRAPPLE YARDER OPERATOR-C Vicky Spasic Work Phone: [facility]-MRI [place] Work Phone: Start: 04-12-2024 End: 04-12-2024 ambulatory GRAPPLE YARDER OPERATOR-C Vicky E Spasic Work Phone: [facility] Work Phone: Start: 04-03-2024 End: 04-03-2024 ambulatory GRAPPLE YARDER OPERATOR-C Vicky E Spasic Work Phone: [facility] Work Phone: Start: 04-03-2024 End: 04-03-2024 Patient encounter procedure GRAPPLE YARDER OPERATOR-C Vicky Spasic Work Phone: [facility] Physician [facility] Pulmonary Disease Work Phone: Start: 04-03-2024 Registered Recurring GRAPPLE YARDER OPERATOR-C Papa a Spasic Work Phone: [facility]-Cancer Center Acute Work Phone: Start: 04-03-2024 End: 04-03-2024 ambulatory GRAPPLE YARDER OPERATOR-C Vicky E Spasic Work Phone: [facility] Work Phone: Start: 04-03-2024 End: 04-03-2024 Patient encounter procedure GRAPPLE YARDER OPERATOR-C Vicky Spasic Work Phone: [facility] Ambulatory Work Phone: Start: 03-29-2024 Non-patient / Non-visit GRAPPLE YARDER OPERATOR-C L aura Spasic Work Phone: [facility] Work Phone: Start: 03-23-2024 End: 03-23-2024 Patient encounter procedure GRAPPLE YARDER OPERATOR-C Vicky Spasic Work Phone: [facility]-Pet Scan Work Phone: Start: 03-23-2024 End: 03-23-2024 ambulatory GRAPPLE YARDER OPERATOR-C Vicky E Spasic Work Phone: [facility] Work Phone: Start: 03-02-2024 End: 03-02-2024 Patient encounter procedure GRAPPLE YARDER OPERATOR-C Vicky Spasic Work Phone: [facility]-CT Scan [place] Work Phone: Start: 03-02-2024 End: 03-02-2024 ambulatory GRAPPLE YARDER OPERATOR-C Vicky E Spasic Work Phone: [facility] Work Phone: Start: 02-15-2024 End: 02-15-2024 ambulatory GRAPPLE YARDER OPERATOR-C Vicky E Spasic Work Phone: [facility] Work Phone: Start: 02-15-2024 End: 02-15-2024 Patient encounter procedure GRAPPLE YARDER OPERATOR-C Vicky Spasic Work Phone: [facility] Work Phone: Start: 02-10-2024 End: 02-10-2024 Patient encounter procedure GRAPPLE YARDER OPERATOR-C Vicky Spasic Work Phone: [facility]-XRay [place] Work Phone: Start: 02-10-2024 End: 02-10-2024 ambulatory Vicky E Spasic Facility:[facility] Start: 02-09-2024 End: 02-09-2024 ambulatory GRAPPLE YARDER OPERATOR-C Vicky Enrique Spasic Work Phone: [facility] Work Phone: Start: 02-09-2024 End: 02-09-2024 Departed Referred GRAPPLE YARDER OPERATOR-C Vicky Mcbridesic Work Phone: [facility] Start: 11-24-2023 End: 11-24-2023 ambulatory PHYSICIAN NO [facility] Work Phone: Start: 11-24-2023 End: 11-24-2023 Departed Referred PHYSICIAN NO [facility] Start: 11-21-2023 End: 11-21-2023 Patient encounter procedure PHYSICIAN NO [facility]-CT Scan [place] Work Phone: Start: 11-21-2023 End: 11-21-2023 ambulatory PHYSICIAN NO [facility] Work Phone: Start: 10-22-2023 End: 10-22-2023 Emergency department patient visit PHYSICIAN NO [facility]-Emergency Room Work Phone: Start: 10-04-2023 End: 10-04-2023 ambulatory PHYSICIAN NO [facility] Work Phone: Start: 10-04-2023 End: 10-04-2023 Departed Referred PHYSICIAN NO [facility] Start: 09-27-2023 End: 09-27-2023 Emergency department patient visit PHYSICIAN NO [facility]-Emergency Room Work Phone: Procedures Date Procedure Procedure Detail Performing Clinician Start: 09-05-2024 Radiologic exam ches t single view Senia Sweeney DO Work Phone: Start: 09-05-2024 End: 09-05-2024 Comprehensive metabolic panel Senia Sweeney DO Work Phone: Start: 09-05-2024 Ecg routine ecg w/le ast 12 lds w/i&r Senia O Patel DO Work Phone: Start: 09-03-2024 HOME O2 EVAL (DESATU RATION SCREEN) Dianne Carmichael STEWARD/STEWARDESS DINING ROOM - RESTORATION OFFICER Work Phone: Start: 09-03-2024 Glucose blood reagent strip Loco Trinh MD Work Phone: Start: 09-03-2024 Procalcitonin (pct) Wilma Domingo MD Work Phone: Start: 09-03-2024 Blood count complete auto&auto difrntl wbc Wilma Domingo MD Work Phone: Start: 09-03-2024 Glucose blood reagent strip Loco Trinh MD Work Phone: Start: 09-02-2024 Glucose blood reagent strip Loco Trinh MD Work Phone: Start: 09-02-2024 Glucose blood reagent strip Loco Trinh MD Work Phone: Start: 09-02-2024 Glucose blood reagent strip Loco Trinh MD Work Phone: Start: 09-02-2024 End: 09-02-2024 Assay of magnesium Renee Tavares MD Work Phone: Start: 09-02-2024 BASIC METABOLIC PANE L W/ REFLEX TO MG FOR LOW K Renee Tavares MD Work Phone: Start: 09-01-2024 Glucose blood reagent strip Loco Trinh MD Work Phone: Start: 09-01-2024 Glucose blood reagent strip Loco Trinh MD Work Phone: Start: 09-01-2024 Glucose blood reagent strip Loco Trinh MD Work Phone: Start: 09-01-2024 BASIC METABOLIC PANE L W/ REFLEX TO MG FOR LOW K Renee Tavares MD Work Phone: Start: 09-01-2024 Blood count complete auto&auto difrntl wbc Renee Tavares MD Work Phone: Start: 08-31-2024 Glucose blood reagent strip Loco Trinh MD Work Phone: Start: 08-31-2024 Glucose blood reagent strip Loco Trinh MD Work Phone: Start: 08-31-2024 Radiologic exam ches t single view Shakir Cruz MD Work Phone: Start: 08-31-2024 Ecg routine ecg w/le ast 12 lds w/i&r Puja Ferreira MD Work Phone: Start: 08-31-2024 BASIC METABOLIC PANE L W/ REFLEX TO MG FOR LOW K Renee Tavares MD Work Phone: Start: 08-31-2024 Natriuretic peptide Malka Tavares MD Work Phone: Start: 08-30-2024 Glucose blood reagent strip Rusty Mcghee MD Work Phone: Start: 08-30-2024 Glucose blood reagent strip Rusty Mcghee MD Work Phone: Start: 08-30-2024 Echo tthrc r-t 2d w/ wom-mode compl spec&colr d Puja Ferreira MD Work Phone: Start: 08-30-2024 Glucose blood reagent strip Rusty Mcghee MD Work Phone: Start: 08-30-2024 Procalcitonin (pct) Wilma Domingo MD Work Phone: Start: 08-30-2024 End: 08-30-2024 Assay of troponin quantitative Puja Ferreira MD Work Phone: Start: 08-30-2024 BASIC METABOLIC PANE L W/ REFLEX TO MG FOR LOW K Renee Tavares MD Work Phone: Start: 08-30-2024 Ecg routine ecg w/le ast 12 lds i&r only Puja Ferreira MD Work Phone: Start: 08-29-2024 Glucose blood reagent strip Rusty Mcghee MD Work Phone: Start: 08-29-2024 Glucose blood reagent strip Rusty Mcghee MD Work Phone: Start: 08-29-2024 Virus centrifuge enh ncd id imfluor stain ea Renee Tavares MD Work Phone: Start: 08-29-2024 Iadna s aureus methi cillin resist amp probe tq Shakir Cruz MD Work Phone: Start: 08-29-2024 Glucose blood reagent strip Rusty Mcghee MD Work Phone: Start: 08-29-2024 Glucose blood reagent strip Rusty Mcghee MD Work Phone: Start: 08-29-2024 BASIC METABOLIC PANE L W/ REFLEX TO MG FOR LOW K Renee Tavares MD Work Phone: Start: 08-29-2024 Blood count complete auto&auto difrntl wbc Renee Tavares MD Work Phone: Start: 08-28-2024 Glucose blood reagent strip Rusty Mcghee MD Work Phone: Start: 08-28-2024 Glucose blood reagent strip Rusty Mcghee MD Work Phone: Start: 08-28-2024 Culture bacterial quanttative colony count urine Wilma Domingo MD Work Phone: Start: 08-28-2024 End: 08-28-2024 Assay of lactate Wilma Domingo MD Work Phone: Start: 08-28-2024 End: 08-28-2024 CULTURE, BLOOD 1 Renee Tavares MD Work Phone: Start: 08-28-2024 Assay of troponin quantitative Jesus Lee DO Work Phone: Start: 08-28-2024 Ecg routine ecg w/le ast 12 lds i&r only Jesus Lee DO Work Phone: Start: 08-28-2024 Respiratory Panel (PCR) Vicky Velazquezc GRAPPLE YARDER OPERATOR-C Work Phone: Start: 08-28-2024 Comprehensive metabo lic panel Jesus Lee DO Work Phone: Start: 08-28-2024 COVID-19 & INFLUENZA COMBO Jesus Lee DO Work Phone: Start: 08-28-2024 Radiologic exam ches t single view Jesus Lee DO Work Phone: Start: 08-28-2024 Plain chest X-ray Vicky Oshea GRAPPLE YARDER OPERATOR-C Work Phone: Start: 07-19-2024 Complete blood count with white cell differential, automated Tomi Sandra DO Work Phone: Start: 07-19-2024 End: 07-19-2024 Comprehensive metabolic panel Tomi Sandra DO Work Phone: Comment on above: Serial tumor marker results determined by assays using different manufacturers or methods may not be comparable. [facility] Laboratory pasteuriser operator and method: LUCY UNICEL DXI, 2 SITE IMMUNOENZYMATIC SANDWICH ASSAY. Result Comment: Seri al tumor marker results determined by assays using different manufacturers or methods may not be comparable. [facility] pasteuriser operator and method: LUCY UNICEL DXI, 2 SITE IMMUNOENZYMATIC ?SANDWICH? ASSAY. PERFORMED BY: JOANNE VILLE [id number] PATHOLOGIST ENERGY TECHNICIAN RODOLFO BOONE M.D. Performed By: #### T SH3 wRFLX, CBC, LIPID, CMP #### [address] Start: 07-19-2024 Computed tomography of abdomen and pelvis with contrast Vicky Velazquezc GRAPPLE YARDER OPERATOR-C Work Phone: Start: 07-19-2024 CT of thorax with contrast Vicky Spasic GRAPPLE YARDER OPERATOR-C Work Phone: Start: 06-20-2024 Ultrasonography of liver Vicky Spasic GRAPPLE YARDER OPERATOR-C Work Phone: Start: 05-17-2024 Gluc bld gluc mntr d ev cleared fda spec home use Unknown Provider Result Start: 05-10-2024 CT of head without contrast GRAPPLE YARDER OPERATOR-C Vicky Spasic Work Phone: Start: 05-10-2024 Plain chest X-ray GRAPPLE YARDER OPERATOR-C Vicky Spasic Work Phone: Start: 05-10-2024 Bacteria identified in Urine by Culture GRAPPLE YARDER OPERATOR-C Vicky Spasic Work Phone: Start: 05-10-2024 Urine culture Vicky Spa sic GRAPPLE YARDER OPERATOR-C Work Phone: Start: 04-25-2024 Colonoscopy GRAPPLE YARDER OPERATOR-C Vicky Spasic Work Phone: Start: 04-12-2024 MRI of head GRAPPLE YARDER OPERATOR-C Vicky Spasic Work Phone: Start: 03-23-2024 Positron emission to mography with computed tomography GRAPPLE YARDER OPERATOR-C Vicky Spasic Work Phone: Start: 03-02-2024 CT of chest without contrast GRAPPLE YARDER OPERATOR-C Vicky Spasic Work Phone: Start: 02-15-2024 Quick Strep (POC) GRAPPLE YARDER OPERATOR-C Vicky Spasic Work Phone: Start: 02-10-2024 Plain chest X-ray GRAPPLE YARDER OPERATOR-C Vicky Spasic Work Phone: Start: 02-10-2024 Radiography of thora cic spine GRAPPLE YARDER OPERATOR-C Vicky Spasic Work Phone: Start: 02-10-2024 X-ray of bilateral r ibs, three views GRAPPLE YARDER OPERATOR-C Vicky Spasic Work Phone: Start: 11-24-2023 Urine culture GRAPPLE YARDER OPERATOR-C Papa a Spasic Work Phone: Start: 11-21-2023 CT of chest without contrast PHYSICIAN NO FAMILY Start: 10-22-2023 Urine culture PHYSICIAN NO FAMILY Start: 10-22-2023 CT cervical spine wi thout contrast PHYSICIAN NO FAMILY Start: 10-22-2023 CT of head without contrast PHYSICIAN NO FAMILY Start: 10-22-2023 Plain chest X-ray PHYSI OSEAS NO FAMILY Start: 09-27-2023 Plain chest X-ray PHYSI OSEAS NO FAMILY Plan of Treatment Date Care Activity Detail Author Start: 09-18-2024 Urine culture [facility] Start: 09-18-2024 Bacteria identified in Urine by Culture Urine Culture [facility] Start: 08-28-2024 Respiratory Panel (PCR) Respiratory Panel (PCR) [facility] Start: 07-18-2024 Annual Wellness Visit (Medicare Advantage) Annual Wellness Visit (Medicare Advantage) [facility] Start: 05-31-2024 End: 05-31-2024 Patient encounter procedure 05/31/2024 1:45 PM EST Office Visit [facility] [address] [place] [address] Mary Ford MD [address] [place] [address] f/u after EUS [facility] Comment on above: f/u after EUS Start: 05-17-2024 End: 05-17-2024 Gi endoscopic us s&i ENDOSCOPIC ULTRASOUND Abnormal gastrointestinal PET scan 05/17/2024 7:31 AM EDT [facility] Start: 05-12-2024 [facility] Start: 05-11-2024 Administration of prophylactic treatment [facility] Start: 05-11-2024 [facility] Start: 05-10-2024 Physical therapy procedure [facility] Start: 05-10-2024 Referral to occupational therapist [facility] Start: 05-10-2024 [facility] Start: 05-10-2024 Hospital admission [facility] Start: 05-10-2024 Urine culture [facility] Start: 05-10-2024 Bacteria identified in Urine by Culture Urine Culture [facility] Start: 04-25-2024 [facility] Start: 04-03-2024 Patient referral [facility] Work Phone: Start: 03-18-2024 COVID-19 Vaccine (1 - 2023-24 season) COVID-19 Vaccine ( season) [facility] Start: 03-18-2024 COVID-19 Vaccine ( season) COVID-19 Vaccine ( season) [facility] Start: 02-16-2024 Influenza vaccination Flu vaccine (#1) [facility] Start: 11-24-2023 Bacteria identified in Urine by Culture [facility] Start: 11-21-2023 CT of chest without contrast CT chest wo [facility] Start: 10-22-2023 Bacteria identified in Urine by Culture [facility] Start: 10-22-2023 CT cervical spine without contrast CT cervical spine wo con [facility] Start: 10-22-2023 CT Cervical spine WO contrast [facility] Start: 07-18-2023 Annual Wellness Visit (Medicare Advantage) Annual Wellness Visit (Medicare Advantage) [facility] Start: 2013 Respiratory Syncytial Virus (RSV) or age 60 yrs+ (1 - 1-dose 60+ series) Respiratory Syncytial Virus (RSV) or age 60 yrs+ (1 - 1-dose 60+ series) [facility] Start: 2013 Respiratory Syncytial Virus (RSV) or age 60 yrs+ (1 - Risk 60-74 years 1-dose series) Respiratory Syncytial Virus (RSV) or age 60 yrs+ (1 - Risk 60-74 years 1-dose series) [facility] Start: 2008 Screening for osteoporosis DEXA (modify frequency per FRAX score) [facility] Start: 09-24-2003 Screening for malignant neoplasm of lung Lung Cancer Screening &/or Counseling [facility] Start: 09-24-2003 Shingles vaccine (1 of 2) Shingles vaccine (1 of 2) [facility] Start: 1998 Screening for malignant neoplasm of colon [facility] Start: 1993 Screening for malignant neoplasm of breast Breast cancer screen [facility] Start: 1972 DTaP/Tdap/Td vaccine (1 - Tdap) DTaP/Tdap/Td vaccine (1 - Tdap) [facility] Start: 1972 Pneumococcal 50+ years Vaccine (1 of 2 - PCV) Pneumococcal 50+ years Vaccine (1 of 2 - PCV) [facility] Start: 09-24-1971 Hepatitis C screening Hepatitis C screen [facility] Start: 1965 Depression Screen Depression Screen [facility] Start: 09-24-1963 Lipid panel Lipids [facility] Start: 09-24-1959 Pneumococcal 65+ years Vaccine (1 of 2 - PCV) Pneumococcal 65+ years Vaccine (1 of 2 - PCV) [facility] Acapella Acapella Respira tory Care Routine Daily until discontinued starting 08/28/2024 [facility] Work Phone: Comment on above: Daily until discontinued starting 2024 Anion gap measurement [facility] Basophils [#/volume] in Blood by Automated count [facility] Basophils/100 leukocytes in Blood by Automated count [facility] End: 09-05-2024 Blood Culture 1 [facility] al[facility] Comment on above: One Time for 1 Occurrences starting 08/18 until 09/05/2024 Cancer Ag 19-9 [Units/volume] in Serum or Plasma [facility] End: 09-09-2024 CBC W Auto Differential panel - Blood CBC with Auto Differential Lab Routine Daily for 7 Days starting 09/03/2024 until 09/09/2024, 1 [facility] Comment on above: Daily for 7 Days starting 09/03/2024 unt pr 09/09/2024, 1 completed Comprehensive metabolic 2000 panel - Serum or Plasma [facility] Comprehensive metabolic 2000 panel - Serum or Plasma [facility] End: 09-09-2024 Comprehensive Metabolic Panel w/ Reflex to MG Comprehensive Metabolic Panel w/ Reflex to MG Lab Routine Daily for 7 Days starting 09/03/2024 until 09/09/2024, 1 completed [facility] [employer] Comment on above: Daily for 7 Days starting 09/03/2024 unt pr 09/09/2024, [address] Abdomen and Pelvi s W contrast IV [facility] CT Chest W contrast IV [facility]: 09-05-2024 Culture, Blood 2 [facility] [employer] Ramirez alth Comment on above: One Time for 1 Occurrences starting 08/18 until 09/05/2024 EKG 12 Lead EKG 12 Lead ECG Routine 09/05/2024 5:24 PM EST [facility] [employer] [facility] Eosinophils/100 leukocytes in Blood by Automated count [facility] Erythrocyte distribution width [Ratio] by Automated count [facility] Erythrocytes [#/volume] in Blood [facility] Glucose [Mass/volume ] in Serum or Plasma POCT glucose Point of Care Testing STAT As Needed until discontinued starting 05/17/2024 [facility] [employer] [facility] Work Phone: Comment on above: As Needed until discontinued starting Glucose [Mass/volume ] in Serum or Plasma [facility] Comment on above: As Needed until discontinued starting 4X Daily (AC & HS) u ntil discontinued starting 08/28/2024 Glucose measurement estimated from glycated hemoglobin [facility] Hematocrit [Volume Fraction] of Blood [facility] Hemoglobin [Mass/volume] in Blood [facility] Leukocytes [#/volume ] corrected for nucleated erythrocytes in Blood by Automated coun [facility] Leukocytes [#/volume ] in Blood [facility] Lymphocytes [#/volum e] in Blood by Automated count [facility] Lymphocytes/100 leukocytes in Blood by Automated count [facility] MCH [Entitic mass] b y Automated count [facility] MCHC [Mass/volume] b y Automated count [facility] MCV [Entitic volume] by Automated count [facility] Monocytes [#/volume] in Blood by Automated count [facility] Monocytes/100 leukocytes in Blood by Automated count [facility] Neutrophils [#/volum e] in Blood by Automated count [facility] Neutrophils/100 leukocytes in Blood by Automated count [facility] Nucleated erythrocyt es [Presence] in Blood by Automated count [facility] Oxygen therapy [Minimum Data Set] Initiate Oxygen Therapy Protocol Respiratory Care Routine As Needed until discontinued starting 08/28/2024 [facility] [employer] [facility] Comment on above: As Needed until discontinued starting Patient Education [facility] Work Phone: Patient referral [facility] Work Phone: Platelet mean volume [Entitic volume] in Blood by Automated count [facility] Platelets [#/volume] in Blood [facility] Respiratory pathogen s DNA and RNA panel - Nasopharynx by ADALGISA with non-probe detection [facility] Surgical pathology study Surgical Pathology Lab Routine Abnormal gastrointestinal PET scan Release Upon Ordering for 1 Occurrences starting 05/17/2024 [facility] Comment on above: Release Upon Ordering for 1 Occurrences starting 05/17/2024 End: 05-17-2024 Urine , POCT Urine , POCT Point of Care Testing STAT One Time for 1 Occurrences starting 05/17/2024 until 05/17/2024 [facility] Comment on above: One Time for 1 Occurrences starting 04/19 until 05/17/2024 [facility] Payers Date Payer Category Payer Medicare [id number] 2023 Private Health Insurance [employer] Member Subscriber Plan / Payer (Effective 2023-Present) Name: Kym Briscoe Relation to Subscriber: Self Name: Kym Briscoe Payer ID: [id number] (NAIC) Type: Not on file Address: [place] [id number] 2023 Medicare [id number] 2023 Self-pay 2023 Private Health Insurance [id number] 1955 Unknown [id number] 2.16.840.1.690691.3.579. 2.176 1955 Unknown [id number] 2.16.840.1.446922.3.579. 2.182 1955 Unknown [id number] 2.16.840.1.228701.3.579. 2.182 Unknown [id number] 2.16.840.1.131196.3.579. 2.531 Unknown [id number] 2.16.840.1.133554.3.579. 2.531 Unknown [id number] 2.16.840.1.174648.3.579. 2.531 Unknown [id number] 2.16.840.1.302520.3.579. 2.531 Unknown [id number] 2.16.840.1.197331.3.579. 2.531 Unknown [id number] 2.16.840.1.212224.3.579. 2.531 Unknown [id number] 2.16.840.1.586540.3.579. 2.531 Unknown [id number] 2.16.840.1.759106.3.579. 2.531 Unknown [id number] 2.16.840.1.823043.3.579. 2.531 Unknown [id number] 2.16.840.1.560791.3.579. 2.531 Unknown [id number] 2.16.840.1.643801.3.579. 2.531 Unknown [id number] 2.16.840.1.853117.3.579. 2.531 Unknown [id number] 2.16.840.1.997720.3.579. 2.531 Unknown [id number] 2.16.840.1.809811.3.579. 2.531 Unknown [id number] 2.16.840.1.026576.3.579. 2.531 Unknown [id number] 2.16.840.1.210904.3.579. 2.531 Unknown [id number] 2.16.840.1.343058.3.579. 2.531 Unknown [id number] 2.16.840.1.572424.3.579. 2.531 Unknown [id number] 2.16.840.1.713524.3.579. 2.531 Social History Date Type Detail Facility Start: 09-27-2023 End: 08-28-2024 Tobacco smoking status NHIS Smoker (finding) [facility] Start: 1955 Sex Assigned At Female F [facility] Start: 07-18-1957 Tobacco smoking stat us ILIS Smokes tobacco daily [facility] Start: 07-18-1957 History of tobacco use Cigarette Smo ker [facility] Start: 05-17-2024 End: 09-05-2024 Cigarettes smoked current (pack per day) - Reported 2 [facility] Start: 05-17-2024 Tobacco use and exposure Smokeless tobacco non-user [facility] Start: 05-17-2024 Alcoholic beverage intake Current drinker of alcohol (finding) [facility] Start: 05-16-2024 End: 09-05-2024 Tobacco use panel [facility] Start: 05-08-2024 Alcohol Comment 1 wine cooler nightl y. [facility] Start: 1955 Sex assigned at Not on file B on [employer] Start: 05-25-2024 End: 09-18-2024 Sex Female (finding) [facility] Tobacco smoking stat [facility] Tobacco smoking consumption unknown [facility] Has the [employer], [employer], [employer], or water company threatened to shut off services in your home in past 12Mo No [facility] How often to you hav e a drink containing alcohol? Never Bon [employer] [facility] How many standard drinks containing alcohol do you have on a typical day? Patient does not drink [employer] [facility] (I/We) worried sully er (my/our) food would run out before (I/we) got money to buy more. Never true [employer] [facility] Goals Date Patient Goal Desired Activity /State Functional Status Date Assessment Result Facility 05-12-2024 Functional status Patient at Baseline [facility] Work Phone: Mental Status Date Assessment Result Facility 05-12-2024 Cognitive function Cognitive Sta tus Patient at Baseline [facility] Work Phone: Clinical Notes 04-03-2024 to 09-03-2024 Eliza Kay RN - 09/03/2024 5:57 PM Maddy Dorman OT - 09/03/2024 3:12 PM Devorah Haney - 09/03/2024 2:19 PM Hunter Hameed RCP - 09/03/2024 12:53 PM ESTDischarge Instructions Note Date & Type Note Facility 09-03-2024 History of Present illness Narrative Shipping Clerk/Admin went through discharge paperwork with pt and pt daughter earlier today. Pt has her medications. Pt has been waiting for 4 hours so far for her oxygen tank [facility] OCCUPATIONAL THERAPY MISSED TREATMENT NOTE INPATIENT Date: 09/03/24 Patient Name: Kym Briscoe Room: : 1955 (68 y.o.) Gender: female Referring Practitioner: Renee Tavares MD Diagnosis: Influenza A REASON FOR MISSED TREATMENT: Patient unable to participate - Hold treatment per CARRI Kay. Patient is discharging this date and unable to participate in OT treatment at this time. 1513 CLINICAL PHARMACY NOTE: MEDS TO BEDS Total # of Prescriptions Filled: 6 The following medications were delivered to the patient: Metoprolol Succinate ER 50MG Tablets Isosorbide Mononitrate ER 30MG Tablets Prednisone 20MG Tablets Bumetanide 1MG Tablets Aspirin 81MG Tablets Nicotine 21MG Patches Additional Documentation: Picked up at the pharmacy by Eliza RN at 2:17PM 09/03/24 Home Oxygen Evaluation Room air SpO2 at Rest = 86% Room air with exercise/exertion = n/a SpO2 on prescribed O2 level at 3 LPM at rest = 92% with exercise/exertion = 90% Nocturnal Oximetry with patient on room air recommended if the resting SpO2 is 89% to 95%. (Requires additional order) [facility] PULMONARY,CRITICAL CARE & SLEEP Manavmilagros Herron MD/Sabino Carmichael STEWARD/STEWARDESS DINING ROOM AGACNP-BC, GRAPPLE YARDER OPERATOR-C Mayuri Gama APRN GRAPPLE YARDER OPERATOR-C Emigdio Graham APRN GRAPPLE YARDER OPERATOR-C Pulmonary Progress Note Patient - Kym Briscoe Age - 68 y.o. - 1955 [facility] # - [id number] Date of Admission - 08/28/2024 12:41 PM Consulting Service/Physician: Primary Care Physician: Tomi Sandra II, MD SUBJECTIVE: Chief Complaint: Chief Complaint Patient presents with Shortness of Breath Fatigue Headache Cough Subjective: She was seen while working with therapy, she does get dyspneic with activity but does not appear to be in distress. She did desaturate to 89% while ambulating in the hallway while on 3 L. She is not normally on oxygen at home. She does continue to smoke. She does follow-up with pulmonology in [place]. She states she is breathing much easier, she still has some wheezing but improved. She has not had any fevers or chills. VITALS BP (!) 156/75 Pulse 78 Temp 98.1 F (36.7 C) Resp 16 Ht 1.499 m (4' 11 ) Wt 52.5 kg (115 lb 11.9 oz) SpO2 95% BMI 23.38 kg/m Wt Readings from Last 3 Encounters: 09/01/24 52.5 kg (115 lb 11.9 oz) 07/26/24 52.6 kg (116 lb) 05/17/24 54.4 kg (120 lb) I/O (24 Hours) Intake/Output Summary (Last 24 hours) at 09/03/2024 1203 Last data filed at 09/03/2024 0530 Gross per 24 hour Intake -- Output 1500 ml Net -1500 ml Ventilator: Exam: Physical Exam Constitutional: Oriented to person, place, and time. Appears well-developed and well-nourished. Mildly dyspneic while ambulating with therapy but not distressed, recovered when sitting HENT: Unremarkable, nasal cannula in place Head: Normocephalic and atraumatic. Eyes: EOM are normal. Pupils are equal, round, and reactive to light. Neck: Neck supple. Cardiovascular: Regular rate and rhythm. Normal heart tones. No JVD. Pulmonary/Chest: Lung sounds diminished few faint expiratory wheezes present, respirations easy nonlabored at rest on 3 L, she was mildly dyspneic when ambulating with therapy on 3 L, she did recover very quickly when she sat down Abdominal: Soft. Bowel sounds are normal. There is no tenderness. Musculoskeletal: Normal range of motion. Neurological:patient is alert and oriented to person, place, and time. Skin: Skin is warm and dry. Extremities: No edema Infusions: sodium chloride dextrose Meds: Current Facility-Administered Medications: [START ON 09/04/2024] losartan (COZAAR) tablet 50 mg, 50 mg, Oral, Daily, Eliana Ledezma MD melatonin tablet 3 mg, 3 mg, Oral, Nightly PRN, Eliana Ledezma MD ibuprofen (ADVIL;MOTRIN) tablet 400 mg, 400 mg, Oral, Q6H PRN, Eliana Ledezma MD predniSONE (DELTASONE) tablet 40 mg, 40 mg, Oral, Daily, Wilma Domingo MD hydrALAZINE (APRESOLINE) injection 20 mg, 20 mg, IntraVENous, Q4H PRN, Wilma Snowden APRN - RESTORATION OFFICER, 20 mg at 09/03/24 0720 enoxaparin (LOVENOX) injection 40 mg, 40 mg, SubCUTAneous, Daily, Wilma Domingo MD, 40 mg at 09/03/24 0939 bumetanide (BUMEX) tablet 1 mg, 1 mg, Oral, Daily, Puja Ferreira MD, 1 mg at 09/03/24 0941 isosorbide mononitrate (IMDUR) extended release tablet 30 mg, 30 mg, Oral, Daily, Puja Ferreira MD, 30 mg at 09/03/24 0939 sulfur hexafluoride microspheres (LUMASON) 60.7-25 MG injection 2 mL, 2 mL, IntraVENous, ONCE PRN, Puja Ferreira MD HYDROcodone-acetaminophen (NORCO) 5-325 MG per tablet 1 tablet, 1 tablet, Oral, Q8H PRN, Wilma Domingo MD, 1 tablet at 09/03/24 1006 atorvastatin (LIPITOR) tablet 40 mg, 40 mg, Oral, Nightly, Renee Tavares MD, 40 mg at 09/02/24 2224 benzonatate (TESSALON) capsule 100 mg, 100 mg, Oral, Q4H PRN, Renee Tavares MD, 100 mg at 09/02/24 0738 diazePAM (VALIUM) tablet 10 mg, 10 mg, Oral, Q12H PRN, Renee Tavares MD, 10 mg at 09/02/24 2206 metoprolol succinate (TOPROL XL) extended release tablet 50 mg, 50 mg, Oral, Daily, Renee Tavares MD, 50 mg at 09/03/24 0940 PARoxetine (PAXIL) tablet 20 mg, 20 mg, Oral, Daily, Renee Tavares MD, 20 mg at 09/03/24 0940 budesonide-formoterol (SYMBICORT) 160-4.5 MCG/ACT inhaler 2 puff, 2 puff, Inhalation, BID RT, 2 puff at 09/02/24 1951 AND tiotropium (SPIRIVA RESPIMAT) 2.5 MCG/ACT inhaler 2 puff, 2 puff, Inhalation, Daily RT, Renee Tavares MD, 2 puff at 09/02/24 0721 OLANZapine zydis (ZYPREXA) disintegrating tablet 10 mg, 10 mg, Oral, Q12H PRN, Renee Tavares MD sodium chloride flush 0.9 % injection 5-40 mL, 5-40 mL, IntraVENous, 2 times per day, Renee Tavares MD, 10 mL at 09/03/24 0947 sodium chloride flush 0.9 % injection 5-40 mL, 5-40 mL, IntraVENous, PRN, Renee Tavares MD, 10 mL at 09/01/24 1140 0.9 % sodium chloride infusion, , IntraVENous, PRN, Renee Tavares MD potassium chloride (KLOR-CON M) extended release tablet 40 mEq, 40 mEq, Oral, PRN OR potassium bicarb-citric acid (EFFER-K) effervescent tablet 40 mEq, 40 mEq, Oral, PRN OR potassium chloride 10 mEq/100 mL IVPB (Peripheral Line), 10 mEq, IntraVENous, PRN, Renee Tavares MD magnesium sulfate 2000 mg in water 50 mL IVPB, 2,000 mg, IntraVENous, PRN, Renee Tavares MD ondansetron (ZOFRAN-ODT) disintegrating tablet 4 mg, 4 mg, Oral, Q8H PRN, 4 mg at 09/01/24 0812 OR ondansetron (ZOFRAN) injection 4 mg, 4 mg, IntraVENous, Q6H PRN, Renee Tavares MD, 4 mg at 08/30/24 0545 polyethylene glycol (GLYCOLAX) packet 17 g, 17 g, Oral, Daily PRN, Renee Tavares MD acetaminophen (TYLENOL) tablet 650 mg, 650 mg, Oral, Q6H PRN, 650 mg at 09/02/24 2300 OR acetaminophen (TYLENOL) suppository 650 mg, 650 mg, Rectal, Q6H PRN, Renee Tavares MD albuterol (PROVENTIL) (2.5 MG/3ML) 0.083% nebulizer solution 2.5 mg, 2.5 mg, Nebulization, 4x Daily RT, Wilma Domingo MD, 2.5 mg at 09/03/24 1038 glucose chewable tablet 16 g, 4 tablet, Oral, PRN, Wilma Domingo MD dextrose bolus 10% 125 mL, 125 mL, IntraVENous, PRN OR dextrose bolus 10% 250 mL, 250 mL, IntraVENous, PRN, Wilma Domingo MD glucagon injection 1 mg, 1 mg, SubCUTAneous, PRN, Wilma Domingo MD dextrose 10 % infusion, , IntraVENous, Continuous PRN, Wilma Domingo MD insulin lispro (HUMALOG,ADMELOG) injection vial 0-4 Units, 0-4 Units, SubCUTAneous, 4x Daily AC & HS, Wilma Domingo MD, 1 Units at 09/01/242037 donepezil (ARICEPT) tablet 10 mg, 10 mg, Oral, Nightly, Wilma Domingo MD, 10 mg at 09/02/242223 mirtazapine (REMERON) tablet 30 mg, 30 mg, Oral, Nightly, Wilma Domingo MD, 30 mg at 09/02/24 222 nicotine (NICODERM CQ) 21 MG/24HR 1 patch, 1 patch, TransDERmal, Daily, Wilma Domingo MD, 1 patch at 09/03/24 0939 Lab Results: Lab Results Component Value Date WBC 14.0 (H) 09/03/2024 HGB 12.9 09/03/2024 HCT 40.6 09/03/2024 MCV 88.1 09/03/2024 PLT 203 09/03/2024 Lab Results Component Value Date CALCIUM 9.2 09/03/2024 NA 141 09/03/2024 K 3.8 09/03/2024 CO2 27 09/03/2024 CL 102 09/03/2024 BUN 12 09/03/2024 CREATININE 0.5 (L) 09/03/2024 Radiology: No new chest imaging today 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 She would qualify from providing portability to prevent adverse medical effects and improve quality of life Encourage smoking cessation, she has been on nicotine patches here in the hospital She does have lung nodules and need to be reevaluated by her primary weld fitter in [place] Agree with prednisone taper upon discharge No objection to discharge later today from our standpoint Follow-up with her primary weld fitter in 2 to 4 weeks, in [place] Discussed with Dr. Trinh This progress note was completed using a voice grinder operator surface tool system. Every effort was made to ensure accuracy. However, inadvertent computerized grinder operator surface tool errors may be present. Marco Carmichael APRN AGACNP-, [facility] Pulmonary, Critical Care & Sleep Date: 09/03/2024 Patient name: Kym Briscoe Date of admission: 08/28/2024 12:41 PM Date of : 1955 PCP: Tomi Sandra II, MD Reason for Admission: Influenza A [J10.1] COPD exacerbation (HCC) [J44.1] Pneumonia due to infectious agent [J18.9] Community acquired pneumonia, unspecified laterality [J18.9] Cardiology Follow-Up: Abnormal ECG abnormal troponin Cardiology Follow-Up: Abnormal ECG abnormal troponin Referring physician: Dr Rusty Sibley Impression Admission 08/28/2024 with increasing shortness of breath, productive cough, marked leukocytosis, viral study positive for influenza A Acute hypoxic respiratory failure Borderline abnormal high-sensitivity troponin Abnormal ECG marked ST-T abnormalities inferior leads and precordial leads Repeat ECG 08/31/2024 significant improvement in the ST-T abnormalities Congestive heart failure diastolic Mildly dilated LV, ejection fraction 50 to 55%, normal LV wall thickness and LV wall motion 2D echo 08/29/2024 Moderate pulmonary hypertension RVSP 54 mmHg Diabetes mellitus Hyperlipidemia Dementia COPD current smoker History of present illness 68-year-old female with a past medical history of COPD, history of smoking type 2 diabetes, hypertension, dementia got hospitalized 08/28/2024 with increasing shortness of breath, productive cough. Chest x-ray on admission showed mild infiltrates. She also had a marked leukocytosis and viral study positive for influenza A. ECG showed marked ST-T abnormalities in the inferior leads and precordial leads. Lab work on admission High-sensitivity troponin 9, 25 Sodium 135 potassium 3.7, creatinine 1.0, magnesium 1.3, glucose 127 and 225 WBC 19.0 hemoglobin 12.9 platelets 198 Influenza A detected Current evaluation Patient seen and examined yesterday and today, medications and labs checked She was resting on chair she was on oxygen by nasal cannula She wants to go home and stay with the daughter Complaining that she did not sleep well last night she had headache No nausea no vomiting She denied any chest pain or palpitation She still has very poor chest expansion diminished breath sounds, basal crackle She does get shortness of breath with activities and she did desaturate to 89% while ambulating in the [place] while on oxygen 3 L Blood pressure 125/75 heart rate 78 temperature 98.1 oxygen saturation 95% 3 L Sodium 141 potassium 3.8, BUN 12, creatinine 0.5, glucose 107, calcium 9.2, albumin 4.0 WBC 14.0, hemoglobin 12.9, platelets 203 Investigation workup 2D echo 08/29/2024 Mildly dilated left ventricle ejection fraction 50 to 55% normal wall thickness and wall motions Mild tricuspid regurgitation moderate pulmonary hypertension RVSP 54 mmHg Dilated IVC ECG 08/31/2024 Sinus rhythm heart rate 60 nonspecific T wave changes inferior and precordial leads significant improvement in comparison to 08/30/2024 ECG 08/30/2024 Sinus bradycardia heart rate 54, ST-T abnormalities inferior leads and precordial leads ECG 08/29/2024 Sinus rhythm, marked ST-T abnormalities ECG 08/28/2024 Sinus rhythm heart rate 97, right atrial enlargement Marked ST-T abnormalities consider inferior ischemia ST-T abnormalities precordial leads consider anterolateral ischemia Chest x-ray 08/31/2024 Mild bibasilar infiltrates which could represent atelectasis or pneumonia Chest x-ray 08/28/2024 Mild infiltrate in the lower lobe Apparently scarring in the right upper lobe Medications: Scheduled Meds: [START ON 09/04/2024] losartan 50 mg Oral Daily predniSONE 40 mg Oral Daily enoxaparin 40 mg SubCUTAneous Daily bumetanide 1 mg Oral Daily isosorbide mononitrate 30 mg Oral Daily atorvastatin 40 mg Oral Nightly metoprolol succinate 50 mg Oral Daily PARoxetine 20 mg Oral Daily budesonide-formoterol 2 puff Inhalation BID RT And tiotropium 2 puff Inhalation Daily RT sodium chloride flush 5-40 mL IntraVENous 2 times per day albuterol 2.5 mg Nebulization 4x Daily RT insulin lispro 0-4 Units SubCUTAneous 4x Daily AC & HS donepezil 10 mg Oral Nightly mirtazapine 30 mg Oral Nightly nicotine 1 patch TransDERmal Daily Continuous Infusions: sodium chloride dextrose CBC: Recent Labs 09/01/24 0421 09/02/24 0509 09/03/24 0752 WBC 12.1* 11.2* 14.0* HGB 10.8* 12.4 12.9 PLT 173 183 203 BMP: Recent Labs 09/01/24 0421 09/02/24 0509 09/03/24 0752 NA 143 143 141 K 3.8 3.6* 3.8 CL 106 102 102 CO2 29 31 27 BUN 10 11 12 CREATININE 0.5* 0.5* 0.5* GLUCOSE 136* 131* 107* Hepatic: Recent Labs 09/03/24 0752 AST 42* ALT 35 BILITOT 0.4 ALKPHOS 107* Troponin: No results for input(s): TROPONINI in the last 72 hours. BNP: No results for input(s): BNP in the last 72 hours. Lipids: No results for input(s): CHOL , HDL in the last 72 hours. Invalid input(s): LDLCALCU INR: No results for input(s): INR in the last 72 hours. Objective: Vitals: BP (!) 156/75 Pulse 78 Temp 98.1 F (36.7 C) Resp 16 Ht 1.499 m (4' 11 ) Wt 52.5 kg (115 lb 11.9 oz) SpO2 95% BMI 23.38 kg/m General appearance: alert and cooperative with exam HEENT: Head: Normal, normocephalic, atraumatic. Neck: no JVD and supple, symmetrical, trachea midline Lungs: Very poor chest expansion diminished breath sound both side basal crackles Heart: regular rate and rhythm Abdomen: Soft bowel sounds present Extremities: Homans sign is negative, no sign of DVT Neurologic: Mental status: Awake at present communicating well EKG: Sinus rhythm, marked ST-T abnormalities inferior leads and precordial leads. ECHO: ordered, but not yet obtained. Ejection fraction: 50 to 55%, mildly dilated LV normal LV wall thickness no obvious wall motion abnormality noted Normal IVC diameter and respiratory variation Stress Test: not obtained. Cardiac Angiography: not obtained. Assessment / Acute Cardiac Problems: Admission with acute exacerbation of COPD, influenza A detected Acute hypoxic respiratory failure Borderline abnormal high-sensitivity troponin Abnormal ECG marked ST-T abnormalities in multiple leads inferior leads and precordial leads ECG 08/30/2024 sinus bradycardia, ST-T abnormalities inferior and precordial leads, artifacts Diastolic congestive heart failure elevated proBNP 1456 Low normal LV systolic function ejection fraction 50 to 55% 2D echo 08/29/2024 Normal LV wall thickness and LV wall motions Moderate pulmonary hypertension right ventricular systolic pressure 54 mmHg Patient Active Problem List: Abnormal gastrointestinal PET scan Pneumonia due to infectious organism Influenza A Chest pain Community acquired pneumonia Plan of Treatment: Medications reviewed 1: COPD exacerbation acute hypoxic respiratory failure, influenza A positive patient is on Tamiflu, bronchodilators and steroids, still requiring oxygen and she drops oxygen during ambulation Nicotine patch 2: Borderline abnormal high-sensitivity troponin and abnormal ECG 2D echo showed normal wall motion ejection fraction 50 to 55% Continue current dose of Lipitor 40 mg a day, metoprolol 50 mg a day 3: Congestive heart failure elevated proBNP 1,456 jugular venous distention++, pulmonary hypertension She received IV diuretics, changed to Bumex 1 mg p.o. 10/31/2024 Added Imdur 30 mg a day and losartan 25 mg a day will assess again most likely she is going to need Bumex 2 mg 4: Multiple cardiac risk factor continue current dose of Lipitor 40 mg, add aspirin 81 mg 5: Alzheimer's disease she is on Aricept Okay to discharge home She should follow-up with a machine woodworking sander in [place] Physical Therapy [facility] Physical Therapy Treatment Date: 09/03/24 Patient Name: Kym Briscoe Room: Account: [id number] : 1955 (68 y.o.) Gender: female Discharge Recommendations: Discharge Recommendations: Home with assist PRN PT D/C Equipment Equipment Needed: No General Patient assessed for rehabilitation services?: Yes Additional Pertinent Hx: Per H and P 08/28/24: The patient is a 68 y.o. Non- / non female who presents withShortness of Breath, Fatigue, Headache, and Cough and she is admitted to the hospital for the management of COPD exacerbation secondary to influenza. PMH COPD, type 2 diabetes, hypertension, dementia. No reported cardiac history Patient has cough, productive sputum, shortness of breath for past few days. Worse with both ambulation and lying flat. No fevers or chills. Hypoxia on room air needing nasal cannula. Uses breathing treatments not oxygen at home. Patient was transferred from [facility] for multifocal pneumonia treatment as her is being treated here for some time. Wants to be near her who she reports is dying. Her granddaughter decreased appetite and oral intake for the last day and believes that she has had some low blood sugar readings. Does have dementia but is an orientated and appropriate responses normally baseline. Response To Previous Treatment: Patient with no complaints from previous session. Family/Caregiver Present: No Referring Practitioner: Dr. Abhishek Tavares Referral Date : 08/28/24 Diagnosis: Influenza A, COPD exacerbation, pneumonia Follows Commands: Within Functional Limits Other (Comment): OK per nurse Diaz to proceed with PT evaluation Past Medical History: has a past medical history of COPD (chronic obstructive pulmonary disease) (HCC), Diabetes mellitus (HCC), Emphysema lung (HCC), Hypertension, and UTI (urinary tract infection). Past Surgical History: has a past surgical history that includes section and Upper gastrointestinal endoscopy (N/A, 05/17/2024). Restrictions Restrictions/Precautions Restrictions/Precautions: Isolation, Fall Risk, Bed Alarm Activity Level: Up with Assist Required Braces or Orthoses?: No Implants Present? : (pt denies) Subjective Subjective Subjective: Pt in bed, agreeable to work with senior copywriter, however was hoping to get breathing treatment before going for walk. RN calling RT. General General Comments: Session interrupted by RT for breathing tx. Walk taken post treatment. Pain Pre-Pain: 10 Pain Location: Head, Neck, Shoulder, Arm Vitals SpO2: 93 % O2 Device: Nasal cannula Patient Position: Supine Comment: 3L/min Transfers Transfers Sit to Stand: Stand by assistance Stand to Sit: Stand by assistance Stand Pivot Transfers: Stand by assistance (with and without AD) Mobility Ambulation Surface: Level tile Device: Rollator Other Apparatus: O2 (3L) Assistance: Contact guard assistance Gait Deviations: Decreased step length Distance: 136ft x 2 (seated rest breaks between walks on rollator.) Comments: SPO2 93% pre gait, SOB noted with amb. Sat to rest and checked SPO2. -reading 93% after 60sec rest break on 3L. Oxygen did drop to 89% at lowest with amb while on 3L. (Pt requiring verbal cues for safety of brake application with transfers using Rollator.) Stairs Stairs/Curb Stairs?: Yes Stairs # Steps : 4 Stairs Height: 8 Device: No Device (counter top used as RUE support with activity) Assistance: Stand by assistance Comment: Pt able to complete 8 box step x 4 to simulate home set up without difficutly. No-LOB Bed Mobility Bed mobility Supine to Sit: Supervision, Modified independent Sit to Supine: Supervision, Modified independent Scooting: Supervision, Modified independent Bed Mobility Comments: HOB elevated to 54 Balance Balance Posture: Good Sitting - Static: Good Sitting - Dynamic: Good Standing - Static: Fair, + (with and without UE support) Standing - Dynamic: Fair, - (Rollator) PT Exercises Exercise Treatment: Pt Mod I with toileting task/ pericare A/AROM Exercises: Supine BLE ex x 15 Functional Mobility Circuit Training: Functional transfers during tx.: EOB, toilet, Rollator Assessment Assessment Discharge Recommendations: Home with assist PRN Activity Tolerance Activity Tolerance: Patient tolerated treatment well Patient Education Patient Education Education Given To: Patient Education Provided: Fall Prevention Strategies, Transfer Training Education Method: Verbal, Teach Back Education Outcome: Continued education needed Functional Outcome Measures AM-PAC Basic Mobility - Inpatient How much help is needed turning from your back to your side while in a flat bed without using bedrails?: None How much help is needed moving from lying on your back to sitting on the side of a flat bed without using bedrails?: None How much help is needed moving to and from a bed to a chair?: A Little How much help is needed standing up from a chair using your arms?: A Little How much help is needed walking in hospital room?: A Little How much help is needed climbing 3-5 steps with a railing?: A Little AM-PAC Inpatient Mobility Raw Score : 20 AM-[facility] Inpatient T-Scale Score : 47.67 Mobility Inpatient CMS 0-100% Score: 35.83 Mobility Inpatient CMS G-Code Modifier : CJ Goals Patient Goals Patient Goals : to be able to go home Short Term Goals Time Frame for Short Term Goals: 4-5 visits Short Term Goal 1: Pt to complete sit to stand transfers with supervision assist, stand pivot with supervision assist and least restrictive AD Short Term Goal 2: Pt to ambulate with least restrictive AD for 50 feet with SBA in order to get to/from bathroom Short Term Goal 3: Pt to negotiate 2 steps with bilateral rails SBA Short Term Goal 4: Pt to complete bed mobility sit<>sup independent without rails, flat bed Short Term Goal 5: Pt to improve dynamic standing balance to F+ to reduce fall risk Plan Physical Therapy Plan General Plan: (4-5 visits) Current Treatment Recommendations: Strengthening, Balance training, Functional mobility training, Transfer training, Gait training, Stair training, Neuromuscular re-education, Therapeutic activities Safety Devices Type of Devices: All fall risk precautions in place, Call light within reach, Chair alarm in place, Left in chair, Nurse notified 09/03/24 1010 09/03/24 1124 PT Individual Minutes Time In 1007 1105 Time Out 1036 1122 Minutes 29 17 Physician Progress Note PATIENT: KYM BRISCOE CSN #: [id number] : 1955 ADMIT DATE: 08/28/2024 12:41 PM DISCH DATE: RESPONDING PROVIDER #: Loco Trinh MD QUERY TEXT: Pt admitted with sepsis and has 08/31 cariology consult- Congestive heart failure elevated proBNP 1456 documented. If possible, please document in progress notes and discharge summary further specificity regarding the type and acuity of CHF: The medical record reflects the following: Risk Factors: sepsis, influenza Clinical Indicators: 08/31 cariology consult- Congestive heart failure elevated proBNP 1456 ECHO completed showing low normal left ventricular systolic function with an estimated EF of 50 to 55%. Treatment: cariology consult, 40 mg IV Lasix ordered, transition to Bumex, monitor labs Options provided: -- Acute on Chronic Diastolic CHF/HFpEF -- Chronic Diastolic CHF/HFpEF -- Other - I will add my own diagnosis -- Disagree - Not applicable / Not valid -- Disagree - Clinically unable to determine / Unknown -- Refer to Clinical Documentation Reviewer PROVIDER RESPONSE TEXT: This patient is in acute on chronic diastolic CHF/HFpEF. Query created by: Migdalia Scott on 09/03/2024 8:29 AM Electronically signed by: Loco Trinh MD 09/03/2024 9:38 AM [facility] PROGRESS NOTE 09/03/2024 9:06 AM Name: Kym Briscoe Acct: [id number] Room: [facility] Day: 6 Admit Date: 08/28/2024 12:41 PM PCP: Tomi Sandra II, MD Code Status: Full Code Subjective: C/C: Chief Complaint Patient presents with Shortness of Breath Fatigue Headache Cough Interval History Status: improved. Seen at bedside this morning. States that she is has been having a throbbing headache all evening. Describes it as wraps around her head radiates down to her shoulders. Painful to look at her phone screen. Has headaches like this but do not last as long. 1 dose Toradol given no improvement was restarted on Fioricet. Blood pressure elevated prior to Fioricet 180/69 ->177/93 this AM. Reports improvement of SOB, cough, and chest pain. Asking to see her . O2 saturation at 94% on 3 L via nasal cannula. No increased work of breathing noted on exam. Patient continues on Solu-Medrol 40 mg every 12 hours. Cardiology evaluated patient. Per recommendation continue patient on Lipitor, metoprolol, and heparin. BNP elevated 1456. ECHO completed showing low normal left ventricular systolic function with an estimated EF of 50 to 55%. Per cardiology, 40 mg IV Lasix ordered -> transition to Bumex. Patient also evaluated by heme-onc for suspicion of malignancy on previous PET scan. Per recommendation, continue to follow-up with Kelsi as outpatient. Brief History: The patient is a 68 y.o. Non- / non female who presents withShortness of Breath, Fatigue, Headache, and Cough and she is admitted to the hospital for the management of COPD exacerbation secondary to influenza. PMH COPD, type 2 diabetes, hypertension, dementia. No reported cardiac history Patient has cough, productive sputum, shortness of breath for past few days. Worse with both ambulation and lying flat. No fevers or chills. Hypoxia on room air needing nasal cannula. Uses breathing treatments not oxygen at home. Patient was transferred from [facility] for multifocal pneumonia treatment as her is being treated here for some time. Wants to be near her who she reports is dying. Her granddaughter decreased appetite and oral intake for the last day and believes that she has had some low blood sugar readings. Does have dementia but is an orientated and appropriate responses normally baseline. Allergies to codeine and contrast. Full code. Review of Systems: Review of Systems Constitutional: Negative for activity change and appetite change. Respiratory: Negative for chest tightness and shortness of breath. Cardiovascular: Negative for chest pain. Gastrointestinal: Negative for abdominal pain and constipation. Genitourinary: Negative for difficulty urinating. Musculoskeletal: Positive for back pain and neck pain. Neurological: Positive for headaches. Medications: Allergies: Allergies Allergen Reactions Iodinated Contrast Media Itching Codeine Rash Current Meds: Scheduled Meds: losartan 25 mg Oral Once [START ON 09/04/2024] losartan 50 mg Oral Daily enoxaparin 40 mg SubCUTAneous Daily bumetanide 1 mg Oral Daily methylPREDNISolone 40 mg IntraVENous Q12H isosorbide mononitrate 30 mg Oral Daily atorvastatin 40 mg Oral Nightly metoprolol succinate 50 mg Oral Daily PARoxetine 20 mg Oral Daily budesonide-formoterol 2 puff Inhalation BID RT And tiotropium 2 puff Inhalation Daily RT sodium chloride flush 5-40 mL IntraVENous 2 times per day albuterol 2.5 mg Nebulization 4x Daily RT insulin lispro 0-4 Units SubCUTAneous 4x Daily AC & HS donepezil 10 mg Oral Nightly mirtazapine 30 mg Oral Nightly nicotine 1 patch TransDERmal Daily Continuous Infusions: sodium chloride dextrose PRN Meds: hihqknbygp-[id number], hydrALAZINE, sulfur hexafluoride microspheres, HYDROcodone-acetaminophen, benzonatate, diazePAM, OLANZapine zydis, sodium chloride flush, sodium chloride, potassium chloride OR potassium alternative oral replacement OR potassium chloride, magnesium sulfate, ondansetron OR ondansetron, polyethylene glycol, acetaminophen OR acetaminophen, glucose, dextrose bolus OR dextrose bolus, glucagon (rDNA), dextrose Data: Past Medical History: has a past medical history of COPD (chronic obstructive pulmonary disease) (HCC), Diabetes mellitus (HCC), Emphysema lung (HCC), Hypertension, and UTI (urinary tract infection). Social History: reports that she has been smoking cigarettes. She started smoking about 67 years ago. She has a 134.3 pack-year smoking history. She has never used smokeless tobacco. She reports current alcohol use. She reports that she does not use drugs. Family History: Family History Problem Relation Age of Onset Colon Cancer Neg Hx Vitals: BP (!) 177/93 Pulse 54 Temp 98.1 F (36.7 C) Resp 18 Ht 1.499 m (4' 11 ) Wt 52.5 kg (115 lb 11.9 oz) SpO2 95% BMI 23.38 kg/m Temp (24hrs), Av.2 F (36.8 C), Min:97.7 F (36.5 C), Max:98.7 F (37.1 C) Recent Labs 09/02/24 1058 09/02/24 1608 09/02/24201709/03/24 0639 POCGLU 101 141* 159* 129* I/O(24Hr): Intake/Output Summary (Last 24 hours) at 09/03/2024 0906 Last data filed at 09/03/2024 0530 Gross per 24 hour Intake -- Output 1500 ml Net -1500 ml Labs: @LABDAILY3@ Lab Results Component Value Date/Time SPECIAL Site: Sputum 08/29/2024 02:09 PM Lab Results Component Value Date/Time CULTURE NORMAL RESPIRATORY DARA LIGHT GROWTH 08/29/2024 02:09 PM @[email or web address]@ Radiology: XR CHEST PORTABLE Result Date: 08/28/2024 EXAMINATION: ONE XRAY VIEW OF THE CHEST 08/28/2024 12:53 pm COMPARISON: None. HISTORY: ORDERING SYSTEM PROVIDED HISTORY: cough TECHNOLOGIST PROVIDED HISTORY: cough Reason for Exam: Cough/pt recent diagnosis of pneumonia FINDINGS: There is apparent scarring in the right upper lobe. Mild infiltrates are noted in the the lower lobes lungs otherwise clear. The heart and mediastinal structures appear normal. Bony structures appear normal. 1. Mild infiltrates in the lower lobes. 2. Apparent scarring in the right upper lobe. Physical Examination: Physical Exam Constitutional: Appearance: Normal appearance. Eyes: Extraocular Movements: Extraocular movements intact. Cardiovascular: Rate and Rhythm: Normal rate and regular rhythm. Pulses: Normal pulses. Pulmonary: Breath sounds: No wheezing. Abdominal: General: Bowel sounds are normal. There is distension. Palpations: Abdomen is soft. Musculoskeletal: Right lower leg: No edema. Left lower leg: No edema. Neurological: Sensory: No sensory deficit. Motor: No weakness. Assessment: Primary Problem Pneumonia due to infectious organism Active Hospital Problems Diagnosis Date Noted Community acquired pneumonia [J18.9] 09/01/2024 Influenza A [J10.1] 08/29/2024 Chest pain [R07.9] 08/29/2024 Pneumonia due to infectious organism [J18.9] 08/28/2024 Plan: COPD exacerbation secondary to pneumonia versus other infectious etiology -Chest x-ray shows mild infiltrates in the lower lobes and apparent scarring in right lower lobe -Patient symptoms including significant shortness of breath, wheezing and cough. 74 O2 on room air, started on 4 L O2 nasal cannula with improvement. Not normally on oxygen -Adequate oxygen saturation on 2 L of oxygen via nasal cannula 08/31 -Positive influenza -Leukocytosis downtrending -Pro-Javy 1.48 on admission, 0.92 on 08/31 -Respiratory culture no significant pathogen seen -DuoNeb in ED -Solu-Medrol every 12 hours-> likely switch to prednisone today -Albuterol, Symbicort, Spiriva -Acapella device -Tamiflu completed -Azithromycin and ceftriaxone. Likely discontinue today 08/30/24 as cultures have no growth -Santo Hernandez for cough -Patient did spike a fever evening 08/29/24. Urine culture, blood culture obtained-negative for growth Elevated troponin, possibly secondary to CAD -Troponin 22-> 25-> 19 -BNP 1456 on 08/31 -EKG sinus rhythm -ECHO completed yesterday showing low normal left ventricular systolic function with an estimated EF of 50 to 55% -Cardiology consulted and following with patient, per recommendation continue patient on Lipitor, metoprolol, heparin - Lasix 40 mg IV one time ordered this morning -> transition to Bumex -Her initial home meds were Cozaar 50 mg Toprol 100 mg -Per cardiology Toprol 50, Cozaar 25, Imdur 30 Mildly prominent portacaval lymph nodes and pulmonary nodules suspicious for malignancy -Active smoker -Patient previously had CT abdomen pelvis with IV contrast 07/19/24 at outside facility showing suspicion for malignancy -PET scan showed FDG avid lung nodule and peripancreatic lymph node -EGD and EUS and biopsy of pancreatic lymph node negative -Has had follow-ups in [place] -[facility]-onc consulted and following with patient, plan to continue workup as outpatient at [facility]. Type 2 diabetes -Glucose in ED 127 -POCT glucose checks -Hypoglycemia protocol -Low dose sliding scale Hypertension, previous hypotensive needing levophed episode resolved -Toprol-XL 100 mg home medication ordered as Toprol-XL 50 mg - held due to low BP -Losartan initially held for possible ERASMO. Creatinine 1.0 but previous 2023 0.74 and Cr Cl 40 ml/min -Hypotensive episode likely secondary to dehydration low oral intake on evening of 08/28/24 -Patient was transferred to ICU and needed midodrine which was discontinued as of noon 08/29/24 -Patient now hypertensive and having headaches. 09/03/24 -Currently on O2 nasal cannula -Per cardiology Imdur 30, Toprol-XL 50, increased to her home dose Cozaar 50 -Hydralazine IV every 4 as needed Hyperlipidemia -Continue home medication Lipitor Anxiety, Dementia -Continue home medications Valium, Paxil,Aricept -Zyprexa as needed for agitation. Pulling at her lines in the ED, needed multiple reminders to not do so. Headaches migraine versus tension headache -Patient appears to have migraine-like headaches. Sometimes tension-like along frontal head right now describing a headache in occipital lobe improving throbbing. Reports history of having -Discontinued Fioricet as it may be contributing to the increase in blood pressure -Attempt to use Tylenol if not one-time effective, 1x dose of Toradol IV ordered -Restarted on Fioricet -Will adjust her blood pressure medications as may be due to elevated BP DVT prophylaxis: Lovenox GI prophylaxis: Not indicated at this time Diet: 5 Carb diet Code: Full Discharge planning: Home Wilma Domingo MD PGY I Transitional Year Resident 09/03/2024 9:06 AM To be discussed with attending Attending Physician Statement I have discussed the care of Kym Briscoe and I have examined the patient myself and taken ROS and HPI, including pertinent history and exam findings, with the resident. I have reviewed the iqbal elements of all parts of the encounter with the resident. I agree with the assessment, plan and orders as documented by the resident. Home eval of oxygen Discharge today Resumed home dose of losartan Patient transferred to room 2045 on telemetry. Patient in no distress at this time. All safety precautions in place. Report given to Med C CARRI Carreon. Pulmonary Progress Note Pulmonary and Critical Care Specialists Patient - Kym Briscoe, Age - 68 y.o. - 1955 Room Number - N - [id number] [facility] # - [id number] Date of Admission - 08/28/2024 12:41 PM Consulting Service/Physician Consulting - Loco Trinh MD Primary Care Physician - Tomi Sandra II, MD SUBJECTIVE Patient appears to be in better spirit O2 saturation is 92 to 95% on 3 L OBJECTIVE VITALS height is 1.499 m (4' 11 ) and weight is 52.5 kg (115 lb 11.9 oz). Her oral temperature is 98.7 F (37.1 C). Her blood pressure is 156/52 (abnormal) and her pulse is 60. Her respiration is 19 and oxygen saturation is 92%. Body mass index is 23.38 kg/m . Temperature Range: Temp: 98.7 F (37.1 C) Temp Av.2 F (36.8 C) Min: 97.5 F (36.4 C) Max: 99.1 F (37.3 C) BP Range: Systolic (24hrs), Av , Min:130 , Max:207 Diastolic (24hrs), Av, Min:38, Max:98 Pulse Range: Pulse Av Min: 52 Max: 89 Respiration Range: Resp Av.5 Min: 11 Max: 29 Current Pulse Ox:: SpO2: 92 % 24HR Pulse Ox Range: SpO2 Av.7 % Min: 90 % Max: 97 % Oxygen Amount and Delivery: O2 Flow Rate (L/min): 3 L/min Wt Readings from Last 3 Encounters: 09/01/24 52.5 kg (115 lb 11.9 oz) 07/26/24 52.6 kg (116 lb) 05/17/24 54.4 kg (120 lb) I/O (24 Hours) Intake/Output Summary (Last 24 hours) at 09/02/2024 1610 Last data filed at 09/02/2024 1547 Gross per 24 hour Intake 720 ml Output 3300 ml Net -2580 ml EXAM General Appearance Awake, alert, oriented, in no acute distress HEENT - normocephalic, atraumatic. Neck - Supple, trachea midline Lungs -coarse breath sounds no crackles rales or wheezes Heart Exam:PMI normal. No lifts, heaves, or thrills. Abdomen Exam: Abdomen soft, non-tender. MEDS [START ON 09/03/2024] enoxaparin 40 mg SubCUTAneous Daily bumetanide 1 mg Oral Daily methylPREDNISolone 40 mg IntraVENous Q12H isosorbide mononitrate 30 mg Oral Daily losartan 25 mg Oral Daily atorvastatin 40 mg Oral Nightly metoprolol succinate 50 mg Oral Daily PARoxetine 20 mg Oral Daily budesonide-formoterol 2 puff Inhalation BID RT And tiotropium 2 puff Inhalation Daily RT sodium chloride flush 5-40 mL IntraVENous 2 times per day heparin (porcine) 5,000 Units SubCUTAneous 3 times per day albuterol 2.5 mg Nebulization 4x Daily RT insulin lispro 0-4 Units SubCUTAneous 4x Daily AC & HS donepezil 10 mg Oral Nightly mirtazapine 30 mg Oral Nightly nicotine 1 patch TransDERmal Daily sodium chloride dextrose hydrALAZINE, ketorolac, sulfur hexafluoride microspheres, HYDROcodone-acetaminophen, benzonatate, diazePAM, OLANZapine zydis, sodium chloride flush, sodium chloride, potassium chloride OR potassium alternative oral replacement OR potassium chloride, magnesium sulfate, ondansetron OR ondansetron, polyethylene glycol, acetaminophen OR acetaminophen, glucose, dextrose bolus OR dextrose bolus, glucagon (rDNA), dextrose LABS CBC Recent Labs 09/02/24 0509 WBC 11.2* HGB 12.4 HCT 38.2 MCV 88.3 PLT 183 BMP: Lab Results Component Value Date/Time NA 143 09/02/2024 05:09 AM K 3.6 09/02/2024 05:09 AM CL 102 09/02/2024 05:09 AM CO2 31 09/02/2024 05:09 AM BUN 11 09/02/2024 05:09 AM CREATININE 0.5 09/02/2024 05:09 AM CALCIUM 8.7 09/02/2024 05:09 AM LABGLOM >90 09/02/2024 05:09 AM ABGs:No results found for: PHART , PO2ART , [id number] No results found for: IFIO2 , MODE , SETTIDVOL , SETPEEP Ionized Calcium: No components found for: IONCA Magnesium: Lab Results Component Value Date/Time MG 1.8 09/02/2024 05:09 AM Phosphorus: No results found for: PHOS LIVER PROFILE No results for input(s): AST , ALT , LIPASE , AMYLASE , BILIDIR , BILITOT , ALKPHOS in the last 72 hours. Invalid input(s): ALB INR No results for input(s): INR in the last 72 hours. PTT No results found for: APTT RADIOLOGY (See actual reports for details) ASSESSMENT/PLAN Patient Active Problem List Diagnosis Abnormal gastrointestinal PET scan Pneumonia due to infectious organism Influenza A Chest pain Community acquired pneumonia Influenza A, also has elevated procalcitonin level but no definitive consolidation on x-ray Acute exacerbation of COPD secondary to viral illness Acute hypoxemic respiratory failure not normally on oxygen, was offered by primary care [employer] in past per daughter but verbally declined due to smoking Hypotension-off Levophed now for 24 hours Lung nodules,, some are 4 mm, largest 14 mm in the left hilar region per CT report from July, followed by pulmonary in [place] Diabetes mellitus type 2 Dementia-seems to be quite severe Hypertension Dyslipidemia Tobacco dependence still actively smoking Full code Patient okay for transfer to [facility] to We will switch the Medrol to prednisone in the morning Continue with Symbicort and Spiriva and Proventil Wean O2 down as tolerated. Hopefully home soon. Patient might need a home O2 evaluation upon discharge. She voiced understanding that she cannot smoke and wear the oxygen at the same time. I did reinforce this with the patient's daughter who I spoke to via the telephone Per Dr. Herron, patient is okay to go to [facility] with telemetry. Images from the original note were not included. Today's Date: 09/02/2024 Patient Name: Kym Briscoe Date of admission: 08/28/2024 12:41 PM Patient's age: 68 y.o., 1955 Admission Dx: Influenza A [J10.1] COPD exacerbation (HCC) [J44.1] Pneumonia due to infectious agent [J18.9] Community acquired pneumonia, unspecified laterality [J18.9] Reason for Consult: management recommendations Requesting Physician: Rusty Mcghee MD CHIEF COMPLAINT: Influenza A. Shortness of breath. FDG avid lung lesion and peripancreatic lymphadenopathy History Obtained From: patient, electronic medical record, Quality of history: poor historian Interval history: Patient seen and examined Lab work reviewed Condition is unchanged from yesterday Patient developed throbbing headaches yesterday and the blood pressure was elevated. However, with adjustment of medication, the blood pressure has come down this morning. Headache is somewhat better. She is on oxygen at 2 L by nasal cannula. It has been weaned off by the bedside nurse HISTORY OF PRESENT ILLNESS: The patient is a 68 y.o. female who is admitted to the hospital with chief complaint of shortness of breath. Patient is not a good historian. Patient was transferred from [facility] for multifocal pneumonia. Patient influenza testing came back positive. She started on Tamiflu. Patient also on azithromycin and Rocephin oncology team consulted for CT scan showed portacaval lymph node. Apparently patient has had CT PET done and these lymph nodes were FDG avid. CT scan also shows pulmonary nodules largest 1 measuring 14 mm in greatest dimension according to the report available this nodule FDG avid concerning for malignancy Workup available in Care Everywhere shows slightly elevated CEA at 6.9 patient CA 19-9 was within range. Patient does have biopsy in Care Everywhere which showed lymphoid tissue favor reactive etiology. Patient has been seen by GI at [facility], Dr. Ford. Past Medical History: has a past medical history of COPD (chronic obstructive pulmonary disease) (HCC), Diabetes mellitus (HCC), Emphysema lung (HCC), Hypertension, and UTI (urinary tract infection). Past Surgical History: has a past surgical history that includes section and Upper gastrointestinal endoscopy (N/A, 05/17/2024). Medications: Prior to Admission medications Medication Sig Start Date End Date Taking? Authorizing Provider doxycycline hyclate (VIBRA-TABS) 100 MG tablet Take 1 tablet by mouth 2 times daily 08/28/24 09/04/24 Yes Dallin Patiño MD HYDROcodone-acetaminophen (NORCO) 5-325 MG per tablet Take 1 tablet by mouth every 8 hours as needed for Pain. Max Daily Amount: 3 tablets Yes Dallin Patiño MD losartan (COZAAR) 50 MG tablet Take 1 tablet by mouth daily Yes Dallin Patiño MD predniSONE (DELTASONE) 50 MG tablet Take 1 tablet by mouth daily 08/28/24 09/02/24 Yes Dallin Patiño MD donepezil (ARICEPT) 10 MG tablet Take 1 tablet by mouth nightly Yes Dallin Patiño MD mirtazapine (REMERON) 30 MG tablet Take 1 tablet by mouth nightly Yes Dallin Patiño MD metoprolol succinate (TOPROL XL) 100 MG extended release tablet Take 1 tablet by mouth daily Dallin Patiño MD vitamin D 50 MCG (2000 UT) CAPS capsule Take 1 capsule by mouth daily Dallin Patiño MD albuterol sulfate HFA (PROVENTIL;VENTOLIN;PROAIR) 108 (90 Base) MCG/ACT inhaler INHALE 1 PUFF BY MOUTH EVERY 4 HOURS NEEDED Dallin Patiño MD atorvastatin (LIPITOR) 40 MG tablet Take 1 tablet by mouth Every Day Dallin Patiño MD benzonatate (TESSALON) 200 MG capsule Take 1 capsule by mouth 2 times daily as needed for Cough 03/26/24 Dallin Patiño MD diazePAM (VALIUM) 10 MG tablet Take 1 tablet by mouth every 12 hours as needed. 09/27/23 Dallin Patiño MD ojowxwauahe-keallkanc-vgwqsy (TRELEGY ELLIPTA) 100-62.5-25 MCG/ACT AEPB inhaler Inhale 1 puff into the lungs daily 10/22/23 Dallin Patiño MD gabapentin (NEURONTIN) 300 MG capsule Take 1 capsule by mouth 3 times daily. Patient not taking: Reported on 08/28/2024 Dallin Patiño MD glimepiride (AMARYL) 2 MG tablet TAKE 1 TABLET BY MOUTH EVERY DAY WITH BREAKFAST or the first main meal of the day Dallin Patiño MD metFORMIN (GLUCOPHAGE) 500 MG tablet Take 1 tablet by mouth 2 times daily (with meals) Dallin Patiño MD PARoxetine (PAXIL) 40 MG tablet Take 1 tablet by mouth every morning 03/26/24 Dallin Patiño MD Current Facility-Administered Medications Medication Dose Route Frequency Provider Last Rate Last Admin hydrALAZINE (APRESOLINE) injection 20 mg 20 mg IntraVENous Q4H PRN Wilma Snowden APRN - RESTORATION OFFICER 20 mg at 09/02/24 0453 ketorolac (TORADOL) injection 15 mg 15 mg IntraVENous Once PRN Wilma Domingo MD [START ON 09/03/2024] enoxaparin (LOVENOX) injection 40 mg 40 mg SubCUTAneous Daily Wilma Domingo MD bumetanide (BUMEX) tablet 1 mg 1 mg Oral Daily Puja Ferreira MD 1 mg at 09/02/24 0738 methylPREDNISolone sodium succ (SOLU-MEDROL) 40 mg in sterile water 1 mL injection 40 mg IntraVENous Q12H Manav Herron MD 40 mg at 09/02/24 1059 isosorbide mononitrate (IMDUR) extended release tablet 30 mg 30 mg Oral Daily Puja Ferreira MD 30 mg at 09/02/24 0738 losartan (COZAAR) tablet 25 mg 25 mg Oral Daily Puja Ferreira MD 25 mg at 09/02/24 0738 sulfur hexafluoride microspheres (LUMASON) 60.7-25 MG injection 2 mL 2 mL IntraVENous ONCE PRN Puja Ferreira MD HYDROcodone-acetaminophen (NORCO) 5-325 MG per tablet 1 tablet 1 tablet Oral Q8H PRN Wilma Domingo MD 1 tablet at 09/02/24 0738 atorvastatin (LIPITOR) tablet 40 mg 40 mg Oral Nightly Renee Tavares MD 40 mg at 09/01/242040 benzonatate (TESSALON) capsule 100 mg 100 mg Oral Q4H PRN Renee Tavares MD 100 mg at 09/02/24 07 diazePAM (VALIUM) tablet 10 mg 10 mg Oral Q12H PRN Renee Tavares MD 10 mg at 09/01/242203 metoprolol succinate (TOPROL XL) extended release tablet 50 mg 50 mg Oral Daily Renee Tavares MD 50 mg at 09/02/24 0738 PARoxetine (PAXIL) tablet 20 mg 20 mg Oral Daily Renee Tavares MD 20 mg at 09/02/24 0738 budesonide-formoterol (SYMBICORT) 160-4.5 MCG/ACT inhaler 2 puff 2 puff Inhalation BID RT Renee Tavares MD 2 puff at 09/02/24 0721 And tiotropium (SPIRIVA RESPIMAT) 2.5 MCG/ACT inhaler 2 puff 2 puff Inhalation Daily RT Renee Tavares MD 2 puff at 09/02/24 0721 OLANZapine zydis (ZYPREXA) disintegrating tablet 10 mg 10 mg Oral Q12H PRN Renee Tavares MD sodium chloride flush 0.9 % injection 5-40 mL 5-40 mL IntraVENous 2 times per day Renee Tavares MD 10 mL at 09/02/24 0739 sodium chloride flush 0.9 % injection 5-40 mL 5-40 mL IntraVENous PRN Renee Tavares MD 10 mL at 09/01/24 1140 0.9 % sodium chloride infusion IntraVENous PRN Renee Tavares MD potassium chloride (KLOR-CON M) extended release tablet 40 mEq 40 mEq Oral PRN Renee Tavares MD Or potassium bicarb-citric acid (EFFER-K) effervescent tablet 40 mEq 40 mEq Oral PRN Renee Tavares MD Or potassium chloride 10 mEq/100 mL IVPB (Peripheral Line) 10 mEq IntraVENous PRN Renee Tavares MD magnesium sulfate 2000 mg in water 50 mL IVPB 2,000 mg IntraVENous PRN Renee Tavares MD ondansetron (ZOFRAN-ODT) disintegrating tablet 4 mg 4 mg Oral Q8H PRN Renee Tavares MD 4 mg at 09/01/24 0812 Or ondansetron (ZOFRAN) injection 4 mg 4 mg IntraVENous Q6H PRN Renee Tavares MD 4 mg at 08/30/24 0545 polyethylene glycol (GLYCOLAX) packet 17 g 17 g Oral Daily PRN Renee Tavares MD acetaminophen (TYLENOL) tablet 650 mg 650 mg Oral Q6H PRN Renee Tavares MD 650 mg at 09/01/24 2256 Or acetaminophen (TYLENOL) suppository 650 mg 650 mg Rectal Q6H PRN Renee Tavares MD heparin (porcine) injection 5,000 Units 5,000 Units SubCUTAneous 3 times per day Wilma Domingo MD 5,000 Units at 09/02/24 0453 albuterol (PROVENTIL) (2.5 MG/3ML) 0.083% nebulizer solution 2.5 mg 2.5 mg Nebulization 4x Daily RT Wilma Domingo MD 2.5 mg at 09/02/24 1104 glucose chewable tablet 16 g 4 tablet Oral PRN Wilma Domingo MD dextrose bolus 10% 125 mL 125 mL IntraVENous PRN Wilma Domingo MD Or dextrose bolus 10% 250 mL 250 mL IntraVENous PRN Wilma Domingo MD glucagon injection 1 mg 1 mg SubCUTAneous PRN Wilma Domingo MD dextrose 10 % infusion IntraVENous Continuous PRN Wilma Domingo MD insulin lispro (HUMALOG,ADMELOG) injection vial 0-4 Units 0-4 Units SubCUTAneous 4x Daily AC & HS Wilma Domingo MD 1 Units at 09/01/242037 donepezil (ARICEPT) tablet 10 mg 10 mg Oral Nightly Wilma Domingo MD 10 mg at 09/01/242040 mirtazapine (REMERON) tablet 30 mg 30 mg Oral Nightly Wilma Domingo MD 30 mg at 09/01/242040 nicotine (NICODERM CQ) 21 MG/24HR 1 patch 1 patch TransDERmal Daily Wilma Domingo MD 1 patch at 09/02/24 0737 Allergies: Iodinated contrast media and Codeine Social History: reports that she has been smoking cigarettes. She started smoking about 67 years ago. She has a 134.3 pack-year smoking history. She has never used smokeless tobacco. She reports current alcohol use. She reports that she does not use drugs. Family History: family history is not on file. REVIEW OF SYSTEMS: Constitutional: No fever or chills. No night sweats, no weight loss Eyes: No eye discharge, double vision, or eye pain HEENT: negative for sore mouth, sore throat, hoarseness and voice change Respiratory: negative for cough , sputum, dyspnea, wheezing, hemoptysis, chest pain Cardiovascular: negative for chest pain, dyspnea, palpitations, orthopnea, PND Gastrointestinal: negative for nausea, vomiting, diarrhea, constipation, abdominal pain, Dysphagia, hematemesis and hematochezia Genitourinary: negative for frequency, dysuria, nocturia, urinary incontinence, and hematuria Integument: negative for rash, skin lesions, bruises. Hematologic/Lymphatic: negative for easy bruising, bleeding, lymphadenopathy, or petechiae Endocrine: negative for heat or cold intolerance,weight changes, change in bowel habits and hair loss Musculoskeletal: negative for myalgias, arthralgias, pain, joint swelling,and bone pain Neurological: negative for headaches, dizziness, seizures, weakness, numbness PHYSICAL EXAM: BP (!) 130/49 Pulse 52 Temp 97.8 F (36.6 C) (Oral) Resp 11 Ht 1.499 m (4' 11 ) Wt 52.5 kg (115 lb 11.9 oz) SpO2 93% BMI 23.38 kg/m Temp (24hrs), Av.2 F (36.8 C), Min:97.5 F (36.4 C), Max:99.1 F (37.3 C) General appearance - well appearing, no in pain or distress Mental status - alert and cooperative Eyes - pupils equal and reactive, extraocular eye movements intact Ears - bilateral TM's and external ear canals normal Mouth - mucous membranes moist, pharynx normal without lesions Neck - supple, no significant adenopathy Lymphatics - no palpable lymphadenopathy, no hepatosplenomegaly Chest - clear to auscultation, no wheezes, rales or rhonchi, symmetric air entry Heart - normal rate, regular rhythm, normal S1, S2, no murmurs Abdomen - soft, nontender, nondistended, no masses or organomegaly Neurological - alert, oriented, normal speech, no focal findings or movement disorder noted Musculoskeletal - no joint tenderness, deformity or swelling Extremities - peripheral pulses normal, no pedal edema, no clubbing or cyanosis Skin - normal coloration and turgor, no rashes, no suspicious skin lesions noted , DATA: Labs: Results for orders placed or performed during the hospital encounter of 08/28/24 COVID-19 & Influenza Combo Specimen: Nasopharyngeal Swab Result Value Ref Range Specimen Description .NASOPHARYNGEAL SWAB Source .NASOPHARYNGEAL SWAB SARS-CoV-2 RNA, RT PCR Not Detected Not Detected Influenza A DETECTED (A) Not Detected Influenza B Not Detected Not Detected Culture, Respiratory Specimen: Sputum Expectorated Result Value Ref Range Specimen Description .EXPECTORATED SPUTUM Special Requests Site: Sputum Direct Exam < 10 EPITHELIAL CELLS/LPF Direct Exam <10 NEUTROPHILS/LPF Direct Exam NO SIGNIFICANT PATHOGENS SEEN Culture NORMAL RESPIRATORY DARA LIGHT GROWTH Culture, Blood 1 Specimen: Blood Result Value Ref Range Specimen Description .BLOOD LAC Special Requests Culture NO GROWTH 4 DAYS Culture, Blood 1 Specimen: Blood Result Value Ref Range Specimen Description .BLOOD LH Special Requests Culture NO GROWTH 4 DAYS Culture, Urine Specimen: Urine, clean catch Result Value Ref Range Specimen Description .CLEAN CATCH URINE Special Requests Site: Urine Culture NO GROWTH MRSA DNA Probe, Nasal Specimen: Nasal; Nares Result Value Ref Range Specimen Description .NASAL SWAB MRSA, DNA, Nasal NEGATIVE NEGATIVE CBC with Auto Differential Result Value Ref Range WBC 19.0 (H) 3.5 - 11.0 k/uL RBC 4.59 4.0 - 5.2 m/uL Hemoglobin 12.9 12.0 - 16.0 g/dL Hematocrit 40.7 36 - 46 % MCV 88.6 80 - 100 fL MCH 28.0 26 - 34 pg MCHC 31.6 31 - 37 g/dL RDW 14.5 11.5 - 14.9 % Platelets 198 150 - 450 k/uL MPV 9.0 6.0 - 12.0 fL Neutrophils % 89 (H) 36 - 66 % Lymphocytes % 3 (L) 24 - 44 % Monocytes % 7 1 - 7 % Eosinophils % 1 0 - 4 % Basophils % 0 0 - 2 % Neutrophils Absolute 16.91 (H) 1.3 - 9.1 k/uL Lymphocytes Absolute 0.57 (L) 1.0 - 4.8 k/uL Monocytes Absolute 1.33 (H) 0.1 - 1.3 k/uL Eosinophils Absolute 0.19 0.0 - 0.4 k/uL Basophils Absolute 0.00 0.0 - 0.2 k/uL Morphology Normal Comprehensive Metabolic Panel Result Value Ref Range Sodium 135 (L) 136 - 145 mmol/L Potassium 3.7 3.7 - 5.3 mmol/L Chloride 96 (L) 98 - 107 mmol/L CO2 26 20 - 31 mmol/L Anion Gap 13 9 - 16 mmol/L Glucose 127 (H) 74 - 99 mg/dL BUN 10 8 - 23 mg/dL Creatinine 1.0 0.7 - 1.2 mg/dL Est, Glom Filt Rate 61 >60 mL/min/1.73m2 Calcium 8.5 (L) 8.6 - 10.4 mg/dL Total Protein 7.4 6.6 - 8.7 g/dL Albumin 4.0 3.5 - 5.2 g/dL Total Bilirubin 0.4 0.0 - 1.2 mg/dL Alkaline Phosphatase 102 35 - 104 U/L ALT 14 10 - 35 U/L AST 36 (H) 10 - 35 U/L Troponin Now and Q 1 Hour Result Value Ref Range Troponin, High Sensitivity 9 0 - 14 ng/L Magnesium Result Value Ref Range Magnesium 1.3 (L) 1.6 - 2.4 mg/dL Procalcitonin Result Value Ref Range Procalcitonin 1.48 (H) 0.00 - 0.09 ng/mL Troponin Result Value Ref Range Troponin, High Sensitivity 22 (H) 0 - 14 ng/L Troponin Result Value Ref Range Troponin, High Sensitivity 25 (H) 0 - 14 ng/L Lactic Acid Result Value Ref Range Lactic Acid 1.1 0.5 - 2.2 mmol/L Urinalysis with Microscopic Result Value Ref Range Color, UA Yellow Yellow Turbidity UA Clear Clear Glucose, Ur NEGATIVE NEGATIVE mg/dL Bilirubin, Urine NEGATIVE NEGATIVE Ketones, Urine NEGATIVE NEGATIVE mg/dL Specific [place], UA 1.016 1.000 - 1.030 Urine Hgb NEGATIVE NEGATIVE pH, Urine 7.0 5.0 - 8.0 Protein, UA 2+ (A) NEGATIVE mg/dL Urobilinogen, Urine Normal 0.0 - 1.0 EU/dL Nitrite, Urine NEGATIVE NEGATIVE Leukocyte Esterase, Urine TRACE (A) NEGATIVE WBC, UA 3 to 5 (A) 0 TO 5 /HPF RBC, UA 0 TO 2 0 TO 2 /HPF Casts UA 6 TO 9 (A) None /LPF Epithelial Cells, UA 3 to 5 /HPF Bacteria, UA None None Basic Metabolic Panel w/ Reflex to MG Result Value Ref Range Sodium 136 136 - 145 mmol/L Potassium 3.8 3.7 - 5.3 mmol/L Chloride 103 98 - 107 mmol/L CO2 22 20 - 31 mmol/L Anion Gap 11 9 - 16 mmol/L Glucose 225 (H) 74 - 99 mg/dL BUN 14 8 - 23 mg/dL Creatinine 0.9 0.7 - 1.2 mg/dL Est, Glom Filt Rate 69 >60 mL/min/1.73m2 Calcium 8.1 (L) 8.6 - 10.4 mg/dL CBC with Auto Differential Result Value Ref Range WBC 18.6 (H) 3.5 - 11.0 k/uL RBC 4.17 4.0 - 5.2 m/uL Hemoglobin 12.0 12.0 - 16.0 g/dL Hematocrit 37.4 36 - 46 % MCV 89.5 80 - 100 fL MCH 28.7 26 - 34 pg MCHC 32.0 31 - 37 g/dL RDW 14.8 11.5 - 14.9 % Platelets 218 150 - 450 k/uL MPV 9.0 6.0 - 12.0 fL Neutrophils % 96 (H) 36 - 66 % Lymphocytes % 1 (L) 24 - 44 % Monocytes % 3 1 - 7 % Eosinophils % 0 0 - 4 % Basophils % 0 0 - 2 % Neutrophils Absolute 17.85 (H) 1.3 - 9.1 k/uL Lymphocytes Absolute 0.19 (L) 1.0 - 4.8 k/uL Monocytes Absolute 0.56 0.1 - 1.3 k/uL Eosinophils Absolute 0.00 0.0 - 0.4 k/uL Basophils Absolute 0.00 0.0 - 0.2 k/uL Morphology Normal Basic Metabolic Panel w/ Reflex to MG Result Value Ref Range Sodium 146 (H) 136 - 145 mmol/L Potassium 4.5 3.7 - 5.3 mmol/L Chloride 111 (H) 98 - 107 mmol/L CO2 28 20 - 31 mmol/L Anion Gap 7 (L) 9 - 16 mmol/L Glucose 162 (H) 74 - 99 mg/dL BUN 8 8 - 23 mg/dL Creatinine 0.6 (L) 0.7 - 1.2 mg/dL Est, Glom Filt Rate >90 >60 mL/min/1.73m2 Calcium 8.2 (L) 8.6 - 10.4 mg/dL CBC with Auto Differential Result Value Ref Range WBC 17.7 (H) 3.5 - 11.0 k/uL RBC 3.94 (L) 4.0 - 5.2 m/uL Hemoglobin 11.2 (L) 12.0 - 16.0 g/dL Hematocrit 35.2 (L) 36 - 46 % MCV 89.4 80 - 100 fL MCH 28.4 26 - 34 pg MCHC 31.8 31 - 37 g/dL RDW 15.1 (H) 11.5 - 14.9 % Platelets 177 150 - 450 k/uL MPV 9.2 6.0 - 12.0 fL Neutrophils % 93 (H) 36 - 66 % Lymphocytes % 4 (L) 24 - 44 % Monocytes % 2 1 - 7 % Eosinophils % 0 0 - 4 % Basophils % 0 0 - 2 % Bands 1 0 - 10 % Neutrophils Absolute 16.46 (H) 1.3 - 9.1 k/uL Lymphocytes Absolute 0.71 (L) 1.0 - 4.8 k/uL Monocytes Absolute 0.35 0.1 - 1.3 k/uL Eosinophils Absolute 0.00 0.0 - 0.4 k/uL Basophils Absolute 0.00 0.0 - 0.2 k/uL Absolute Bands 0.18 0.0 - 1.0 k/uL Morphology ANISOCYTOSIS PRESENT Morphology HYPOCHROMIA PRESENT Troponin Result Value Ref Range Troponin, High Sensitivity 19 (H) 0 - 14 ng/L Procalcitonin Result Value Ref Range Procalcitonin 0.92 (H) 0.00 - 0.09 ng/mL Basic Metabolic Panel w/ Reflex to MG Result Value Ref Range Sodium 143 136 - 145 mmol/L Potassium 4.2 3.7 - 5.3 mmol/L Chloride 109 (H) 98 - 107 mmol/L CO2 26 20 - 31 mmol/L Anion Gap 8 (L) 9 - 16 mmol/L Glucose 152 (H) 74 - 99 mg/dL BUN 8 8 - 23 mg/dL Creatinine 0.6 (L) 0.7 - 1.2 mg/dL Est, Glom Filt Rate >90 >60 mL/min/1.73m2 Calcium 8.3 (L) 8.6 - 10.4 mg/dL CBC with Auto Differential Result Value Ref Range WBC 14.0 (H) 3.5 - 11.0 k/uL RBC 3.92 (L) 4.0 - 5.2 m/uL Hemoglobin 11.3 (L) 12.0 - 16.0 g/dL Hematocrit 35.0 (L) 36 - 46 % MCV 89.2 80 - 100 fL MCH 28.8 26 - 34 pg MCHC 32.3 31 - 37 g/dL RDW 14.8 11.5 - 14.9 % Platelets 182 150 - 450 k/uL MPV 9.3 6.0 - 12.0 fL Neutrophils % 91 (H) 36 - 66 % Lymphocytes % 6 (L) 24 - 44 % Monocytes % 3 1 - 7 % Eosinophils % 0 0 - 4 % Basophils % 0 0 - 2 % Neutrophils Absolute 12.74 (H) 1.3 - 9.1 k/uL Lymphocytes Absolute 0.84 (L) 1.0 - 4.8 k/uL Monocytes Absolute 0.42 0.1 - 1.3 k/uL Eosinophils Absolute 0.00 0.0 - 0.4 k/uL Basophils Absolute 0.00 0.0 - 0.2 k/uL Morphology ANISOCYTOSIS PRESENT Brain Natriuretic Peptide Result Value Ref Range NT Pro-BNP 1,456 (H) 0 - 300 pg/mL Basic Metabolic Panel w/ Reflex to MG Result Value Ref Range Sodium 143 136 - 145 mmol/L Potassium 3.8 3.7 - 5.3 mmol/L Chloride 106 98 - 107 mmol/L CO2 29 20 - 31 mmol/L Anion Gap 8 (L) 9 - 16 mmol/L Glucose 136 (H) 74 - 99 mg/dL BUN 10 8 - 23 mg/dL Creatinine 0.5 (L) 0.7 - 1.2 mg/dL Est, Glom Filt Rate >90 >60 mL/min/1.73m2 Calcium 8.2 (L) 8.6 - 10.4 mg/dL CBC with Auto Differential Result Value Ref Range WBC 12.1 (H) 3.5 - 11.0 k/uL RBC 3.82 (L) 4.0 - 5.2 m/uL Hemoglobin 10.8 (L) 12.0 - 16.0 g/dL Hematocrit 33.9 (L) 36 - 46 % MCV 88.8 80 - 100 fL MCH 28.1 26 - 34 pg MCHC 31.7 31 - 37 g/dL RDW 15.0 (H) 11.5 - 14.9 % Platelets 173 150 - 450 k/uL MPV 8.9 6.0 - 12.0 fL Neutrophils % 83 (H) 36 - 66 % Lymphocytes % 13 (L) 24 - 44 % Monocytes % 3 1 - 7 % Eosinophils % 0 0 - 4 % Basophils % 0 0 - 2 % Bands 1 0 - 10 % Neutrophils Absolute 10.05 (H) 1.3 - 9.1 k/uL Lymphocytes Absolute 1.57 1.0 - 4.8 k/uL Monocytes Absolute 0.36 0.1 - 1.3 k/uL Eosinophils Absolute 0.00 0.0 - 0.4 k/uL Basophils Absolute 0.00 0.0 - 0.2 k/uL Absolute Bands 0.12 0.0 - 1.0 k/uL Morphology ANISOCYTOSIS PRESENT Morphology HYPOCHROMIA PRESENT Basic Metabolic Panel w/ Reflex to MG Result Value Ref Range Sodium 143 136 - 145 mmol/L Potassium 3.6 (L) 3.7 - 5.3 mmol/L Chloride 102 98 - 107 mmol/L CO2 31 20 - 31 mmol/L Anion Gap 10 9 - 16 mmol/L Glucose 131 (H) 74 - 99 mg/dL BUN 11 8 - 23 mg/dL Creatinine 0.5 (L) 0.7 - 1.2 mg/dL Est, Glom Filt Rate >90 >60 mL/min/1.73m2 Calcium 8.7 8.6 - 10.4 mg/dL CBC with Auto Differential Result Value Ref Range WBC 11.2 (H) 3.5 - 11.0 k/uL RBC 4.33 4.0 - 5.2 m/uL Hemoglobin 12.4 12.0 - 16.0 g/dL Hematocrit 38.2 36 - 46 % MCV 88.3 80 - 100 fL MCH 28.5 26 - 34 pg MCHC 32.3 31 - 37 g/dL RDW 15.1 (H) 11.5 - 14.9 % Platelets 183 150 - 450 k/uL MPV 8.8 6.0 - 12.0 fL Neutrophils % 70 (H) 36 - 66 % Lymphocytes % 26 24 - 44 % Monocytes % 3 1 - 7 % Eosinophils % 0 0 - 4 % Basophils % 0 0 - 2 % Bands 1 0 - 10 % Neutrophils Absolute 7.84 1.3 - 9.1 k/uL Lymphocytes Absolute 2.91 1.0 - 4.8 k/uL Monocytes Absolute 0.34 0.1 - 1.3 k/uL Eosinophils Absolute 0.00 0.0 - 0.4 k/uL Basophils Absolute 0.00 0.0 - 0.2 k/uL Absolute Bands 0.11 0.0 - 1.0 k/uL Morphology ANISOCYTOSIS PRESENT Magnesium Result Value Ref Range Magnesium 1.8 1.6 - 2.4 mg/dL POC Glucose Fingerstick Result Value Ref Range POC Glucose 169 (H) 65 - 105 mg/dL POC Glucose Fingerstick Result Value Ref Range POC Glucose 194 (H) 65 - 105 mg/dL POC Glucose Fingerstick Result Value Ref Range POC Glucose 159 (H) 65 - 105 mg/dL POC Glucose Fingerstick Result Value Ref Range POC Glucose 222 (H) 65 - 105 mg/dL POC Glucose Fingerstick Result Value Ref Range POC Glucose 191 (H) 65 - 105 mg/dL POC Glucose Fingerstick Result Value Ref Range POC Glucose 227 (H) 65 - 105 mg/dL POC Glucose Fingerstick Result Value Ref Range POC Glucose 177 (H) 65 - 105 mg/dL POC Glucose Fingerstick Result Value Ref Range POC Glucose 144 (H) 65 - 105 mg/dL POC Glucose Fingerstick Result Value Ref Range POC Glucose 239 (H) 65 - 105 mg/dL POC Glucose Fingerstick Result Value Ref Range POC Glucose 191 (H) 65 - 105 mg/dL POC Glucose Fingerstick Result Value Ref Range POC Glucose 188 (H) 65 - 105 mg/dL POC Glucose Fingerstick Result Value Ref Range POC Glucose 196 (H) 65 - 105 mg/dL POC Glucose Fingerstick Result Value Ref Range POC Glucose 167 (H) 65 - 105 mg/dL POC Glucose Fingerstick Result Value Ref Range POC Glucose 256 (H) 65 - 105 mg/dL POC Glucose Fingerstick Result Value Ref Range POC Glucose 175 (H) 65 - 105 mg/dL POC Glucose Fingerstick Result Value Ref Range POC Glucose 213 (H) 65 - 105 mg/dL POC Glucose Fingerstick Result Value Ref Range POC Glucose 112 (H) 65 - 105 mg/dL POC Glucose Fingerstick Result Value Ref Range POC Glucose 101 65 - 105 mg/dL EKG 12 Lead Result Value Ref Range Ventricular Rate 97 BPM Atrial Rate 97 BPM P-R Interval 122 ms QRS Duration 88 ms Q-T Interval 320 ms QTc Calculation (Bazett) 406 ms P [place] 84 degrees R [place] 57 degrees T [place] -119 degrees EKG 12 Lead Result Value Ref Range Ventricular Rate 54 BPM Atrial Rate 54 BPM P-R Interval 114 ms QRS Duration 82 ms Q-T Interval 392 ms QTc Calculation (Bazett) 371 ms P [place] 64 degrees R [place] 44 degrees T [place] -91 degrees EKG 12 Lead Result Value Ref Range Ventricular Rate 60 BPM Atrial Rate 60 BPM P-R Interval 112 ms QRS Duration 84 ms Q-T Interval 400 ms QTc Calculation (Bazett) 400 ms P [place] 29 degrees R [place] 46 degrees T [place] -107 degrees Echo (TTE) complete (PRN contrast/bubble/strain/3D) Result Value Ref Range LA Minor [place] 5.9 cm LA Major [place] 5.4 cm LA Area 2C 17.5 cm2 LA Area 4C 14.4 cm2 LA Volume MOD A2C 43 22 - 52 mL LA Volume MOD A4C 31 22 - 52 mL LA Volume BP 38 22 - 52 mL LA Diameter 3.1 cm RA Area 4C 11.6 cm2 RA Volume 23 ml AV Mean Gradient 8 mmHg AV VTI 40.3 cm AV Mean Velocity 1.4 m/s AV Peak Velocity 2.0 m/s AV Peak Gradient 16 mmHg AV Area by VTI 1.8 cm2 AV Area by Peak Velocity 2.0 cm2 Aortic Root 3.0 cm IVSd 0.5 (A) 0.6 - 0.9 cm LVIDd 5.4 (A) 3.9 - 5.3 cm LVIDs 4.0 cm LVOT Diameter 1.9 cm LVOT Mean Gradient 4 mmHg LVOT VTI 26.1 cm LVOT Peak Velocity 1.4 m/s LVOT Peak Gradient 8 mmHg LVPWd 0.6 0.6 - 0.9 cm LV E' Lateral Velocity 6.74 cm/s LV E' Septal Velocity 7.62 cm/s LVOT Area 2.8 cm2 LVOT SV 74.0 ml MV E Wave Deceleration Time 165.0 ms MV A Velocity 0.94 m/s MV E Velocity 1.15 m/s PV Max Velocity 1.5 m/s PV Peak Gradient 8 mmHg RV Free Wall Peak S' 13.4 cm/s TAPSE 2.2 1.7 cm TR Max Velocity 3.38 m/s TR Peak Gradient 46 mmHg Body Surface Area 1.47 m2 Fractional Shortening 2D 26 28 - 44 % LVIDd Index 3.70 cm/m2 LVIDs Index 2.74 cm/m2 LV RWT Ratio 0.22 LV Mass 2D 98.1 67 - 162 g LV Mass 2D Index 67.2 43 - 95 g/m2 MV E/A 1.22 E/E' Ratio (Averaged) 16.08 E/E' Lateral 17.06 E/E' Septal 15.09 LA Volume Index BP 26 16 - 34 ml/m2 LVOT Stroke Volume Index 50.7 mL/m2 LA Volume Index MOD A2C 29 16 - 34 ml/m2 LA Volume Index MOD A4C 21 16 - 34 ml/m2 LA Size Index 2.12 cm/m2 LA/AO Root Ratio 1.03 RA Volume Index A4C 16 mL/m2 Ao Root Index 2.05 cm/m2 AV Velocity Ratio 0.70 LVOT:AV VTI Index 0.65 LIBAN/BSA VTI 1.2 cm2/m2 LIBAN/BSA Peak Velocity 1.4 cm2/m2 EF Physician 50 % Est. RA Pressure 8 mmHg RVSP 54 mmHg PASP 54 mmHg IMAGING DATA: XR CHEST PORTABLE Result Date: 08/28/2024 EXAMINATION: ONE XRAY VIEW OF THE CHEST 08/28/2024 12:53 pm COMPARISON: None. HISTORY: ORDERING SYSTEM PROVIDED HISTORY: cough TECHNOLOGIST PROVIDED HISTORY: cough Reason for Exam: Cough/pt recent diagnosis of pneumonia FINDINGS: There is apparent scarring in the right upper lobe. Mild infiltrates are noted in the the lower lobes lungs otherwise clear. The heart and mediastinal structures appear normal. Bony structures appear normal. 1. Mild infiltrates in the lower lobes. 2. Apparent scarring in the right upper lobe. IMPRESSION: Primary Problem Pneumonia due to infectious organism Active Hospital Problems Diagnosis Date Noted Community acquired pneumonia [J18.9] 09/01/2024 Influenza A [J10.1] 08/29/2024 Chest pain [R07.9] 08/29/2024 Pneumonia due to infectious organism [J18.9] 08/28/2024 Influenza infection COPD exacerbation History of lung nodule increasing size, FDG avid History of peripancreatic lymph node FDG avid status post biopsy, reactive in nature Slightly elevated CEA RECOMMENDATIONS: I reviewed the labs/imaging available to me,outside records and discussed with the patient.I explained to the patient the nature of this problem. I explained the significance of these abnormalities and possible etiology and management options Reviewed records from outside facility Reviewed records from Care Everywhere Patient seems to have advanced dementia Acute resp failure from Influenza A infection The lung nodules will be followed as outpatient. Blood pressure is much better this morning after medication adjustment Recommend continued surveillance for FDG avid lung nodule and FDG avid peripancreatic lymph node. This can be done closer to patient's home. Patient already has establish care in [place] Respiratory status much improved, continue to wean down oxygen. She is currently on 2 L. Continue management of influenza and COPD exacerbation at this point. Will be available as needed Discussed with patient and Nurse. Thank you for asking us to see this patient. Bobbi Hall MD Control Panel Operator Crude Unit/Medical Oncologist [facility] hematology oncology physicians This note is created with the assistance of a speech recognition program. While intending to generate a document that actually reflects the content of the visit, the document can still have some errors including those of syntax and sound a like substitutions which may escape proof reading. It such instances, actual meaning can be extrapolated by contextual diversion. [facility] PROGRESS NOTE 09/02/2024 10:06 AM Name: Kym Briscoe Acct: [id number] Room: IP Day: 5 Admit Date: 08/28/2024 12:41 PM PCP: Tomi Sandra II, MD Code Status: Full Code Subjective: C/C: Chief Complaint Patient presents with Shortness of Breath Fatigue Headache Cough Interval History Status: improved. Seen at bedside this morning. States that she is feeling well. Reports improvement of SOB, cough, and chest pain. Asking to see her . Improving headache, reports left occipital describes as throbbing. Reports has had headaches in the past like this-changes in vision or appetite. Patient was started on Aricept overnight for headaches but had increased blood pressure 200/79. O2 saturation at 94% on 3 L via nasal cannula. No increased work of breathing noted on exam. Patient continues on Solu-Medrol 40 mg every 12 hours. Cardiology evaluated patient. Per recommendation continue patient on Lipitor, metoprolol, and heparin. BNP elevated 1456. ECHO completed showing low normal left ventricular systolic function with an estimated EF of 50 to 55%. Per cardiology, 40 mg IV Lasix ordered -> transition to Bumex. Patient also evaluated by heme-onc for suspicion of malignancy on previous PET scan. Per recommendation, continue to follow-up with [facility] as outpatient. Brief History: The patient is a 68 y.o. Non- / non female who presents withShortness of Breath, Fatigue, Headache, and Cough and she is admitted to the hospital for the management of COPD exacerbation secondary to influenza. PMH COPD, type 2 diabetes, hypertension, dementia. No reported cardiac history Patient has cough, productive sputum, shortness of breath for past few days. Worse with both ambulation and lying flat. No fevers or chills. Hypoxia on room air needing nasal cannula. Uses breathing treatments not oxygen at home. Patient was transferred from [facility] for multifocal pneumonia treatment as her is being treated here for some time. Wants to be near her who she reports is dying. Her granddaughter decreased appetite and oral intake for the last day and believes that she has had some low blood sugar readings. Does have dementia but is an orientated and appropriate responses normally baseline. Allergies to codeine and contrast. Full code. Review of Systems: Review of Systems Constitutional: Negative for activity change and appetite change. Respiratory: Negative for chest tightness and shortness of breath. Cardiovascular: Negative for chest pain. Gastrointestinal: Negative for abdominal pain and constipation. Genitourinary: Negative for difficulty urinating. Neurological: Positive for headaches. Medications: Allergies: Allergies Allergen Reactions Iodinated Contrast Media Itching Codeine Rash Current Meds: Scheduled Meds: bumetanide 1 mg Oral Daily methylPREDNISolone 40 mg IntraVENous Q12H isosorbide mononitrate 30 mg Oral Daily losartan 25 mg Oral Daily atorvastatin 40 mg Oral Nightly metoprolol succinate 50 mg Oral Daily PARoxetine 20 mg Oral Daily budesonide-formoterol 2 puff Inhalation BID RT And tiotropium 2 puff Inhalation Daily RT sodium chloride flush 5-40 mL IntraVENous 2 times per day heparin (porcine) 5,000 Units SubCUTAneous 3 times per day albuterol 2.5 mg Nebulization 4x Daily RT insulin lispro 0-4 Units SubCUTAneous 4x Daily AC & HS donepezil 10 mg Oral Nightly mirtazapine 30 mg Oral Nightly nicotine 1 patch TransDERmal Daily Continuous Infusions: sodium chloride dextrose PRN Meds: hydrALAZINE, ketorolac, sulfur hexafluoride microspheres, HYDROcodone-acetaminophen, benzonatate, diazePAM, OLANZapine zydis, sodium chloride flush, sodium chloride, potassium chloride OR potassium alternative oral replacement OR potassium chloride, magnesium sulfate, ondansetron OR ondansetron, polyethylene glycol, acetaminophen OR acetaminophen, glucose, dextrose bolus OR dextrose bolus, glucagon (rDNA), dextrose Data: Past Medical History: has a past medical history of COPD (chronic obstructive pulmonary disease) (HCC), Diabetes mellitus (HCC), Emphysema lung (HCC), Hypertension, and UTI (urinary tract infection). Social History: reports that she has been smoking cigarettes. She started smoking about 67 years ago. She has a 134.3 pack-year smoking history. She has never used smokeless tobacco. She reports current alcohol use. She reports that she does not use drugs. Family History: Family History Problem Relation Age of Onset Colon Cancer Neg Hx Vitals: BP (!) 153/58 Pulse 69 Temp 97.9 F (36.6 C) (Oral) Resp 16 Ht 1.499 m (4' 11 ) Wt 52.5 kg (115 lb 11.9 oz) SpO2 94% BMI 23.38 kg/m Temp (24hrs), Av.2 F (36.8 C), Min:97.5 F (36.4 C), Max:99.1 F (37.3 C) Recent Labs 09/01/24 1113 09/01/24 1554 09/01/24 1922 09/02/24 0601 POCGLU 256* 175* 213* 112* I/O(24Hr): Intake/Output Summary (Last 24 hours) at 09/02/2024 1006 Last data filed at 09/02/2024 0832 Gross per 24 hour Intake 1260 ml Output 4800 ml Net -3540 ml Labs: @[email or web address]@ Lab Results Component Value Date/Time SPECIAL Site: Sputum 08/29/2024 02:09 PM Lab Results Component Value Date/Time CULTURE NORMAL RESPIRATORY DARA LIGHT GROWTH 08/29/2024 02:09 PM @[email or web address]@ Radiology: XR CHEST PORTABLE Result Date: 08/28/2024 EXAMINATION: ONE XRAY VIEW OF THE CHEST 08/28/2024 12:53 pm COMPARISON: None. HISTORY: ORDERING SYSTEM PROVIDED HISTORY: cough TECHNOLOGIST PROVIDED HISTORY: cough Reason for Exam: Cough/pt recent diagnosis of pneumonia FINDINGS: There is apparent scarring in the right upper lobe. Mild infiltrates are noted in the the lower lobes lungs otherwise clear. The heart and mediastinal structures appear normal. Bony structures appear normal. 1. Mild infiltrates in the lower lobes. 2. Apparent scarring in the right upper lobe. Physical Examination: Physical Exam Constitutional: Appearance: Normal appearance. Eyes: Extraocular Movements: Extraocular movements intact. Cardiovascular: Rate and Rhythm: Normal rate and regular rhythm. Pulses: Normal pulses. Pulmonary: Breath sounds: Wheezing (mild) present. Abdominal: General: Bowel sounds are normal. There is distension. Palpations: Abdomen is soft. Musculoskeletal: Right lower leg: No edema. Left lower leg: No edema. Neurological: Mental Status: She is oriented to person, place, and time. Sensory: No sensory deficit. Motor: No weakness. Assessment: Primary Problem Pneumonia due to infectious organism Active Hospital Problems Diagnosis Date Noted Community acquired pneumonia [J18.9] 09/01/2024 Influenza A [J10.1] 08/29/2024 Chest pain [R07.9] 08/29/2024 Pneumonia due to infectious organism [J18.9] 08/28/2024 Plan: COPD exacerbation secondary to pneumonia versus other infectious etiology -Chest x-ray shows mild infiltrates in the lower lobes and apparent scarring in right lower lobe -Patient symptoms including significant shortness of breath, wheezing and cough. 74 O2 on room air, started on 4 L O2 nasal cannula with improvement. Not normally on oxygen -Adequate oxygen saturation on 2 L of oxygen via nasal cannula 08/31 -Positive influenza -Leukocytosis downtrending -Pro-Javy 1.48 on admission, 0.92 on 08/31 -Respiratory culture no significant pathogen seen -DuoNeb in ED -Solu-Medrol every 12 hours-> likely switch to prednisone today -Albuterol, Symbicort, Spiriva -Acapella device -Tamiflu completed -Azithromycin and ceftriaxone. Likely discontinue today 08/30/24 as cultures have no growth -Tessalon Perles for cough -Patient did spike a fever evening 08/29/24. Urine culture, blood culture obtained-negative for growth Elevated troponin, possibly secondary to CAD -Troponin 22-> 25-> 19 -BNP 1456 on 08/31 -EKG sinus rhythm -ECHO completed yesterday showing low normal left ventricular systolic function with an estimated EF of 50 to 55% -Cardiology consulted and following with patient, per recommendation continue patient on Lipitor, metoprolol, heparin - Lasix 40 mg IV one time ordered this morning -> transition to Bumex -Her initial home meds were Cozaar 50 mg Toprol 100 mg -Per cardiology Toprol 50, Cozaar 25, Imdur 30 Mildly prominent portacaval lymph nodes and pulmonary nodules suspicious for malignancy -Active smoker -Patient previously had CT abdomen pelvis with IV contrast 07/19/24 at outside facility showing suspicion for malignancy -PET scan showed FDG avid lung nodule and peripancreatic lymph node -EGD and EUS and biopsy of pancreatic lymph node negative -Has had follow-ups in [place] -Heme-onc consulted and following with patient, plan to continue workup as outpatient at [place]. Type 2 diabetes -Glucose in ED 127 -POCT glucose checks -Hypoglycemia protocol -Low dose sliding scale Hypotensive episodes in patient with history of hypertension -Toprol-XL 100 mg home medication ordered as Toprol-XL 50 mg - held due to low BP -Losartan held for possible ERASMO. Creatinine 1.0 but previous 2023 0.74 and Cr Cl 40 ml/min -Hypotensive episode likely secondary to dehydration low oral intake on evening of 08/28/24 -Patient was transferred to ICU and needed midodrine which was discontinued as of noon 08/29/24 -Stable for PCU versus MedSurg? Currently on O2 nasal cannula -Per cardiology Imdur 30, Toprol-XL 50, Cozaar 25 Hyperlipidemia -Continue home medication Lipitor Anxiety, Dementia -Continue home medications Valium, Paxil,Aricept -Zyprexa as needed for agitation. Pulling at her lines in the ED, needed multiple reminders to not do so. Headaches migraine versus tension headache -Patient appears to have migraine-like headaches. Sometimes tension-like along frontal head right now describing a headache in occipital lobe improving throbbing. Reports history of having -Discontinued Fioricet as it may be contributing to the increase in blood pressure -Attempt to use Tylenol if not one-time effective, 1x dose of Toradol IV ordered DVT prophylaxis: Heparin 5000 units 3 times daily -> Lovenox starting tomorrow GI prophylaxis: Not indicated at this time Diet: 5 Carb diet Code: Full Discharge planning: Home Wilma Domingo MD PGY I Transitional Year Resident 09/02/2024 10:06 AM To be discussed with attending Electronically signed by Wilma Domingo MD Attending Physician Statement I have discussed the care of Kym Briscoe and I have examined the patient myself and taken ROS and HPI, including pertinent history and exam findings, with the resident. I have reviewed the iqbal elements of all parts of the encounter with the resident. I agree with the assessment, plan and orders as documented by the resident. Clinically improved continue IV steroids for today, switch to p.o. tomorrow and likely refused to go to SNF will stay with the daughter = Discharge tomorrow if okay with pulm Transfer to meds surg Images from the original note were not included. Today's Date: 09/01/2024 Patient Name: Kym Briscoe Date of admission: 08/28/2024 12:41 PM Patient's age: 68 y.o., 1955 Admission Dx: Influenza A [J10.1] COPD exacerbation (HCC) [J44.1] Pneumonia due to infectious agent [J18.9] Community acquired pneumonia, unspecified laterality [J18.9] Reason for Consult: management recommendations Requesting Physician: Rusty Mcghee MD CHIEF COMPLAINT: Influenza A. Shortness of breath. FDG avid lung lesion and peripancreatic lymphadenopathy History Obtained From: patient, electronic medical record, Quality of history: poor historian Interval history: Patient seen and examined Lab work reviewed Condition is unchanged from yesterday HISTORY OF PRESENT ILLNESS: The patient is a 68 y.o. female who is admitted to the hospital with chief complaint of shortness of breath. Patient is not a good historian. Patient was transferred from [facility] for multifocal pneumonia. Patient influenza testing came back positive. She started on Tamiflu. Patient also on azithromycin and Rocephin oncology team consulted for CT scan showed portacaval lymph node. Apparently patient has had CT PET done and these lymph nodes were FDG avid. CT scan also shows pulmonary nodules largest 1 measuring 14 mm in greatest dimension according to the report available this nodule FDG avid concerning for malignancy Workup available in Care Everywhere shows slightly elevated CEA at 6.9 patient CA 19-9 was within range. Patient does have biopsy in Care Everywhere which showed lymphoid tissue favor reactive etiology. Patient has been seen by GI at [facility], Dr. Ford. Past Medical History: has a past medical history of COPD (chronic obstructive pulmonary disease) (HCC), Diabetes mellitus (HCC), Emphysema lung (HCC), Hypertension, and UTI (urinary tract infection). Past Surgical History: has a past surgical history that includes section and Upper gastrointestinal endoscopy (N/A, 05/17/2024). Medications: Prior to Admission medications Medication Sig Start Date End Date Taking? Authorizing Provider doxycycline hyclate (VIBRA-TABS) 100 MG tablet Take 1 tablet by mouth 2 times daily 08/28/24 09/04/24 Yes ProviderDallin MD HYDROcodone-acetaminophen (NORCO) 5-325 MG per tablet Take 1 tablet by mouth every 8 hours as needed for Pain. Max Daily Amount: 3 tablets Yes ProviderDallin MD losartan (COZAAR) 50 MG tablet Take 1 tablet by mouth daily Yes Dallin Patiño MD predniSONE (DELTASONE) 50 MG tablet Take 1 tablet by mouth daily 08/28/24 09/02/24 Yes Dallin Patiño MD donepezil (ARICEPT) 10 MG tablet Take 1 tablet by mouth nightly Yes Dallin Patiño MD mirtazapine (REMERON) 30 MG tablet Take 1 tablet by mouth nightly Yes Dallin Patiño MD metoprolol succinate (TOPROL XL) 100 MG extended release tablet Take 1 tablet by mouth daily Dallin Patiño MD vitamin D 50 MCG (1999 UT) CAPS capsule Take 1 capsule by mouth daily Dallin Patiño MD albuterol sulfate HFA (PROVENTIL;VENTOLIN;PROAIR) 108 (90 Base) MCG/ACT inhaler INHALE 1 PUFF BY MOUTH EVERY 4 HOURS NEEDED Dallin Patiño MD atorvastatin (LIPITOR) 40 MG tablet Take 1 tablet by mouth Every Day Dallin Patiño MD benzonatate (TESSALON) 200 MG capsule Take 1 capsule by mouth 2 times daily as needed for Cough 03/26/24 Dallin Patiño MD diazePAM (VALIUM) 10 MG tablet Take 1 tablet by mouth every 12 hours as needed. 09/27/23 Dallin Patiño MD qndykktjizj-peupzccro-lgghth (TRELEGY ELLIPTA) 100-62.5-25 MCG/ACT AEPB inhaler Inhale 1 puff into the lungs daily 10/22/23 Dallin Patiño MD gabapentin (NEURONTIN) 300 MG capsule Take 1 capsule by mouth 3 times daily. Patient not taking: Reported on 08/28/2024 Dallin Patiño MD glimepiride (AMARYL) 2 MG tablet TAKE 1 TABLET BY MOUTH EVERY DAY WITH BREAKFAST or the first main meal of the day Dallin Patiño MD metFORMIN (GLUCOPHAGE) 500 MG tablet Take 1 tablet by mouth 2 times daily (with meals) Dallin Patiño MD PARoxetine (PAXIL) 40 MG tablet Take 1 tablet by mouth every morning 03/26/24 Dallin Patiño MD Current Facility-Administered Medications Medication Dose Route Frequency Provider Last Rate Last Admin [START ON 09/02/2024] bumetanide (BUMEX) tablet 1 mg 1 mg Oral Daily Puja Ferreira MD methylPREDNISolone sodium succ (SOLU-MEDROL) 40 mg in sterile water 1 mL injection 40 mg IntraVENous Q12H Manav Herron MD isosorbide mononitrate (IMDUR) extended release tablet 30 mg 30 mg Oral Daily Puja Ferreira MD 30 mg at 09/01/24 0752 losartan (COZAAR) tablet 25 mg 25 mg Oral Daily Puja Ferreira MD 25 mg at 09/01/24 0752 sulfur hexafluoride microspheres (LUMASON) 60.7-25 MG injection 2 mL 2 mL IntraVENous ONCE PRN Puja Ferreira MD oseltamivir (TAMIFLU) capsule 75 mg 75 mg Oral BID Renee Tavares MD 75 mg at 09/01/24 0751 HYDROcodone-acetaminophen (NORCO) 5-325 MG per tablet 1 tablet 1 tablet Oral Q8H PRN Wilma Domingo MD 1 tablet at 09/01/24 1621 atorvastatin (LIPITOR) tablet 40 mg 40 mg Oral Nightly Renee Tavares MD 40 mg at 08/31/24 2116 benzonatate (TESSALON) capsule 100 mg 100 mg Oral Q4H PRN Renee Tavares MD 100 mg at 08/29/24 0820 diazePAM (VALIUM) tablet 10 mg 10 mg Oral Q12H PRN Renee Tavares MD 10 mg at 09/01/24 0925 metoprolol succinate (TOPROL XL) extended release tablet 50 mg 50 mg Oral Daily Renee Tavares MD 50 mg at 09/01/24 0846 PARoxetine (PAXIL) tablet 20 mg 20 mg Oral Daily Renee Tavares MD 20 mg at 09/01/24 0752 budesonide-formoterol (SYMBICORT) 160-4.5 MCG/ACT inhaler 2 puff 2 puff Inhalation BID RT Renee Tavares MD 2 puff at 09/01/242008 And tiotropium (SPIRIVA RESPIMAT) 2.5 MCG/ACT inhaler 2 puff 2 puff Inhalation Daily RT Renee Tavares MD 2 puff at 09/01/24 0759 OLANZapine zydis (ZYPREXA) disintegrating tablet 10 mg 10 mg Oral Q12H PRN Renee Tavares MD sodium chloride flush 0.9 % injection 5-40 mL 5-40 mL IntraVENous 2 times per day Renee Tavares MD 10 mL at 09/01/24 0753 sodium chloride flush 0.9 % injection 5-40 mL 5-40 mL IntraVENous PRN Renee Tavares MD 10 mL at 09/01/24 1140 0.9 % sodium chloride infusion IntraVENous PRN Renee Tavares MD potassium chloride (KLOR-CON M) extended release tablet 40 mEq 40 mEq Oral PRN Renee Tavares MD Or potassium bicarb-citric acid (EFFER-K) effervescent tablet 40 mEq 40 mEq Oral PRN Renee Tavares MD Or potassium chloride 10 mEq/100 mL IVPB (Peripheral Line) 10 mEq IntraVENous PRN Renee Tavares MD magnesium sulfate 2000 mg in water 50 mL IVPB 2,000 mg IntraVENous PRN Renee Tavares MD ondansetron (ZOFRAN-ODT) disintegrating tablet 4 mg 4 mg Oral Q8H PRN Renee Tavares MD 4 mg at 09/01/24 0812 Or ondansetron (ZOFRAN) injection 4 mg 4 mg IntraVENous Q6H PRN Renee Tavares MD 4 mg at 08/30/24 0545 polyethylene glycol (GLYCOLAX) packet 17 g 17 g Oral Daily PRN Renee Tavares MD acetaminophen (TYLENOL) tablet 650 mg 650 mg Oral Q6H PRN Renee Tavares MD 650 mg at 09/01/24 0637 Or acetaminophen (TYLENOL) suppository 650 mg 650 mg Rectal Q6H PRN Renee Tavares MD heparin (porcine) injection 5,000 Units 5,000 Units SubCUTAneous 3 times per day Renee Tavares MD 5,000 Units at 09/01/24 1400 albuterol (PROVENTIL) (2.5 MG/3ML) 0.083% nebulizer solution 2.5 mg 2.5 mg Nebulization 4x Daily RT Wilma Domingo MD 2.5 mg at 09/01/242008 glucose chewable tablet 16 g 4 tablet Oral PRN Wilma Domingo MD dextrose bolus 10% 125 mL 125 mL IntraVENous PRN Wilma Domingo MD Or dextrose bolus 10% 250 mL 250 mL IntraVENous PRN Wilma Domingo MD glucagon injection 1 mg 1 mg SubCUTAneous PRN Wilma Domingo MD dextrose 10 % infusion IntraVENous Continuous PRN Wilma Domingo MD insulin lispro (HUMALOG,ADMELOG) injection vial 0-4 Units 0-4 Units SubCUTAneous 4x Daily AC & HS Wilma Domingo MD 2 Units at 09/01/24 1140 donepezil (ARICEPT) tablet 10 mg 10 mg Oral Nightly Wilma Domingo MD 10 mg at 08/31/24 2116 mirtazapine (REMERON) tablet 30 mg 30 mg Oral Nightly Wilma Domingo MD 30 mg at 08/31/242115 nicotine (NICODERM CQ) 21 MG/24HR 1 patch 1 patch TransDERmal Daily Wilma Domingo MD 1 patch at 09/01/24 0754 Allergies: Iodinated contrast media and Codeine Social History: reports that she has been smoking cigarettes. She started smoking about 67 years ago. She has a 134.2 pack-year smoking history. She has never used smokeless tobacco. She reports current alcohol use. She reports that she does not use drugs. Family History: family history is not on file. REVIEW OF SYSTEMS: Constitutional: No fever or chills. No night sweats, no weight loss Eyes: No eye discharge, double vision, or eye pain HEENT: negative for sore mouth, sore throat, hoarseness and voice change Respiratory: negative for cough , sputum, dyspnea, wheezing, hemoptysis, chest pain Cardiovascular: negative for chest pain, dyspnea, palpitations, orthopnea, PND Gastrointestinal: negative for nausea, vomiting, diarrhea, constipation, abdominal pain, Dysphagia, hematemesis and hematochezia Genitourinary: negative for frequency, dysuria, nocturia, urinary incontinence, and hematuria Integument: negative for rash, skin lesions, bruises. Hematologic/Lymphatic: negative for easy bruising, bleeding, lymphadenopathy, or petechiae Endocrine: negative for heat or cold intolerance,weight changes, change in bowel habits and hair loss Musculoskeletal: negative for myalgias, arthralgias, pain, joint swelling,and bone pain Neurological: negative for headaches, dizziness, seizures, weakness, numbness PHYSICAL EXAM: BP (!) 144/38 Pulse 70 Temp 99.1 F (37.3 C) (Oral) Resp 15 Ht 1.499 m (4' 11 ) Wt 52.5 kg (115 lb 11.9 oz) SpO2 97% BMI 23.38 kg/m Temp (24hrs), Av.5 F (36.9 C), Min:98.1 F (36.7 C), Max:99.1 F (37.3 C) General appearance - well appearing, no in pain or distress Mental status - alert and cooperative Eyes - pupils equal and reactive, extraocular eye movements intact Ears - bilateral TM's and external ear canals normal Mouth - mucous membranes moist, pharynx normal without lesions Neck - supple, no significant adenopathy Lymphatics - no palpable lymphadenopathy, no hepatosplenomegaly Chest - clear to auscultation, no wheezes, rales or rhonchi, symmetric air entry Heart - normal rate, regular rhythm, normal S1, S2, no murmurs Abdomen - soft, nontender, nondistended, no masses or organomegaly Neurological - alert, oriented, normal speech, no focal findings or movement disorder noted Musculoskeletal - no joint tenderness, deformity or swelling Extremities - peripheral pulses normal, no pedal edema, no clubbing or cyanosis Skin - normal coloration and turgor, no rashes, no suspicious skin lesions noted , DATA: Labs: Results for orders placed or performed during the hospital encounter of 08/28/24 COVID-19 & Influenza Combo Specimen: Nasopharyngeal Swab Result Value Ref Range Specimen Description .NASOPHARYNGEAL SWAB Source .NASOPHARYNGEAL SWAB SARS-CoV-2 RNA, RT PCR Not Detected Not Detected Influenza A DETECTED (A) Not Detected Influenza B Not Detected Not Detected Culture, Respiratory Specimen: Sputum Expectorated Result Value Ref Range Specimen Description .EXPECTORATED SPUTUM Special Requests Site: Sputum Direct Exam < 10 EPITHELIAL CELLS/LPF Direct Exam <10 NEUTROPHILS/LPF Direct Exam NO SIGNIFICANT PATHOGENS SEEN Culture NORMAL RESPIRATORY DARA LIGHT GROWTH Culture, Blood 1 Specimen: Blood Result Value Ref Range Specimen Description .BLOOD LAC Special Requests Culture NO GROWTH 3 DAYS Culture, Blood 1 Specimen: Blood Result Value Ref Range Specimen Description .BLOOD LH Special Requests Culture NO GROWTH 3 DAYS Culture, Urine Specimen: Urine, clean catch Result Value Ref Range Specimen Description .CLEAN CATCH URINE Special Requests Site: Urine Culture NO GROWTH MRSA DNA Probe, Nasal Specimen: Nasal; Nares Result Value Ref Range Specimen Description .NASAL SWAB MRSA, DNA, Nasal NEGATIVE NEGATIVE CBC with Auto Differential Result Value Ref Range WBC 19.0 (H) 3.5 - 11.0 k/uL RBC 4.59 4.0 - 5.2 m/uL Hemoglobin 12.9 12.0 - 16.0 g/dL Hematocrit 40.7 36 - 46 % MCV 88.6 80 - 100 fL MCH 28.0 26 - 34 pg MCHC 31.6 31 - 37 g/dL RDW 14.5 11.5 - 14.9 % Platelets 198 150 - 450 k/uL MPV 9.0 6.0 - 12.0 fL Neutrophils % 89 (H) 36 - 66 % Lymphocytes % 3 (L) 24 - 44 % Monocytes % 7 1 - 7 % Eosinophils % 1 0 - 4 % Basophils % 0 0 - 2 % Neutrophils Absolute 16.91 (H) 1.3 - 9.1 k/uL Lymphocytes Absolute 0.57 (L) 1.0 - 4.8 k/uL Monocytes Absolute 1.33 (H) 0.1 - 1.3 k/uL Eosinophils Absolute 0.19 0.0 - 0.4 k/uL Basophils Absolute 0.00 0.0 - 0.2 k/uL Morphology Normal Comprehensive Metabolic Panel Result Value Ref Range Sodium 135 (L) 136 - 145 mmol/L Potassium 3.7 3.7 - 5.3 mmol/L Chloride 96 (L) 98 - 107 mmol/L CO2 26 20 - 31 mmol/L Anion Gap 13 9 - 16 mmol/L Glucose 127 (H) 74 - 99 mg/dL BUN 10 8 - 23 mg/dL Creatinine 1.0 0.7 - 1.2 mg/dL Est, Glom Filt Rate 61 >60 mL/min/1.73m2 Calcium 8.5 (L) 8.6 - 10.4 mg/dL Total Protein 7.4 6.6 - 8.7 g/dL Albumin 4.0 3.5 - 5.2 g/dL Total Bilirubin 0.4 0.0 - 1.2 mg/dL Alkaline Phosphatase 102 35 - 104 U/L ALT 14 10 - 35 U/L AST 36 (H) 10 - 35 U/L Troponin Now and Q 1 Hour Result Value Ref Range Troponin, High Sensitivity 9 0 - 14 ng/L Magnesium Result Value Ref Range Magnesium 1.3 (L) 1.6 - 2.4 mg/dL Procalcitonin Result Value Ref Range Procalcitonin 1.48 (H) 0.00 - 0.09 ng/mL Troponin Result Value Ref Range Troponin, High Sensitivity 22 (H) 0 - 14 ng/L Troponin Result Value Ref Range Troponin, High Sensitivity 25 (H) 0 - 14 ng/L Lactic Acid Result Value Ref Range Lactic Acid 1.1 0.5 - 2.2 mmol/L Urinalysis with Microscopic Result Value Ref Range Color, UA Yellow Yellow Turbidity UA Clear Clear Glucose, Ur NEGATIVE NEGATIVE mg/dL Bilirubin, Urine NEGATIVE NEGATIVE Ketones, Urine NEGATIVE NEGATIVE mg/dL Specific [place], UA 1.016 1.000 - 1.030 Urine Hgb NEGATIVE NEGATIVE pH, Urine 7.0 5.0 - 8.0 Protein, UA 2+ (A) NEGATIVE mg/dL Urobilinogen, Urine Normal 0.0 - 1.0 EU/dL Nitrite, Urine NEGATIVE NEGATIVE Leukocyte Esterase, Urine TRACE (A) NEGATIVE WBC, UA 3 to 5 (A) 0 TO 5 /HPF RBC, UA 0 TO 2 0 TO 2 /HPF Casts UA 6 TO 9 (A) None /LPF Epithelial Cells, UA 3 to 5 /HPF Bacteria, UA None None Basic Metabolic Panel w/ Reflex to MG Result Value Ref Range Sodium 136 136 - 145 mmol/L Potassium 3.8 3.7 - 5.3 mmol/L Chloride 103 98 - 107 mmol/L CO2 22 20 - 31 mmol/L Anion Gap 11 9 - 16 mmol/L Glucose 225 (H) 74 - 99 mg/dL BUN 14 8 - 23 mg/dL Creatinine 0.9 0.7 - 1.2 mg/dL Est, Glom Filt Rate 69 >60 mL/min/1.73m2 Calcium 8.1 (L) 8.6 - 10.4 mg/dL CBC with Auto Differential Result Value Ref Range WBC 18.6 (H) 3.5 - 11.0 k/uL RBC 4.17 4.0 - 5.2 m/uL Hemoglobin 12.0 12.0 - 16.0 g/dL Hematocrit 37.4 36 - 46 % MCV 89.5 80 - 100 fL MCH 28.7 26 - 34 pg MCHC 32.0 31 - 37 g/dL RDW 14.8 11.5 - 14.9 % Platelets 218 150 - 450 k/uL MPV 9.0 6.0 - 12.0 fL Neutrophils % 96 (H) 36 - 66 % Lymphocytes % 1 (L) 24 - 44 % Monocytes % 3 1 - 7 % Eosinophils % 0 0 - 4 % Basophils % 0 0 - 2 % Neutrophils Absolute 17.85 (H) 1.3 - 9.1 k/uL Lymphocytes Absolute 0.19 (L) 1.0 - 4.8 k/uL Monocytes Absolute 0.56 0.1 - 1.3 k/uL Eosinophils Absolute 0.00 0.0 - 0.4 k/uL Basophils Absolute 0.00 0.0 - 0.2 k/uL Morphology Normal Basic Metabolic Panel w/ Reflex to MG Result Value Ref Range Sodium 146 (H) 136 - 145 mmol/L Potassium 4.5 3.7 - 5.3 mmol/L Chloride 111 (H) 98 - 107 mmol/L CO2 28 20 - 31 mmol/L Anion Gap 7 (L) 9 - 16 mmol/L Glucose 162 (H) 74 - 99 mg/dL BUN 8 8 - 23 mg/dL Creatinine 0.6 (L) 0.7 - 1.2 mg/dL Est, Glom Filt Rate >90 >60 mL/min/1.73m2 Calcium 8.2 (L) 8.6 - 10.4 mg/dL CBC with Auto Differential Result Value Ref Range WBC 17.7 (H) 3.5 - 11.0 k/uL RBC 3.94 (L) 4.0 - 5.2 m/uL Hemoglobin 11.2 (L) 12.0 - 16.0 g/dL Hematocrit 35.2 (L) 36 - 46 % MCV 89.4 80 - 100 fL MCH 28.4 26 - 34 pg MCHC 31.8 31 - 37 g/dL RDW 15.1 (H) 11.5 - 14.9 % Platelets 177 150 - 450 k/uL MPV 9.2 6.0 - 12.0 fL Neutrophils % 93 (H) 36 - 66 % Lymphocytes % 4 (L) 24 - 44 % Monocytes % 2 1 - 7 % Eosinophils % 0 0 - 4 % Basophils % 0 0 - 2 % Bands 1 0 - 10 % Neutrophils Absolute 16.46 (H) 1.3 - 9.1 k/uL Lymphocytes Absolute 0.71 (L) 1.0 - 4.8 k/uL Monocytes Absolute 0.35 0.1 - 1.3 k/uL Eosinophils Absolute 0.00 0.0 - 0.4 k/uL Basophils Absolute 0.00 0.0 - 0.2 k/uL Absolute Bands 0.18 0.0 - 1.0 k/uL Morphology ANISOCYTOSIS PRESENT Morphology HYPOCHROMIA PRESENT Troponin Result Value Ref Range Troponin, High Sensitivity 19 (H) 0 - 14 ng/L Procalcitonin Result Value Ref Range Procalcitonin 0.92 (H) 0.00 - 0.09 ng/mL Basic Metabolic Panel w/ Reflex to MG Result Value Ref Range Sodium 143 136 - 145 mmol/L Potassium 4.2 3.7 - 5.3 mmol/L Chloride 109 (H) 98 - 107 mmol/L CO2 26 20 - 31 mmol/L Anion Gap 8 (L) 9 - 16 mmol/L Glucose 152 (H) 74 - 99 mg/dL BUN 8 8 - 23 mg/dL Creatinine 0.6 (L) 0.7 - 1.2 mg/dL Est, Glom Filt Rate >90 >60 mL/min/1.73m2 Calcium 8.3 (L) 8.6 - 10.4 mg/dL CBC with Auto Differential Result Value Ref Range WBC 14.0 (H) 3.5 - 11.0 k/uL RBC 3.92 (L) 4.0 - 5.2 m/uL Hemoglobin 11.3 (L) 12.0 - 16.0 g/dL Hematocrit 35.0 (L) 36 - 46 % MCV 89.2 80 - 100 fL MCH 28.8 26 - 34 pg MCHC 32.3 31 - 37 g/dL RDW 14.8 11.5 - 14.9 % Platelets 182 150 - 450 k/uL MPV 9.3 6.0 - 12.0 fL Neutrophils % 91 (H) 36 - 66 % Lymphocytes % 6 (L) 24 - 44 % Monocytes % 3 1 - 7 % Eosinophils % 0 0 - 4 % Basophils % 0 0 - 2 % Neutrophils Absolute 12.74 (H) 1.3 - 9.1 k/uL Lymphocytes Absolute 0.84 (L) 1.0 - 4.8 k/uL Monocytes Absolute 0.42 0.1 - 1.3 k/uL Eosinophils Absolute 0.00 0.0 - 0.4 k/uL Basophils Absolute 0.00 0.0 - 0.2 k/uL Morphology ANISOCYTOSIS PRESENT Brain Natriuretic Peptide Result Value Ref Range NT Pro-BNP 1,456 (H) 0 - 300 pg/mL Basic Metabolic Panel w/ Reflex to MG Result Value Ref Range Sodium 143 136 - 145 mmol/L Potassium 3.8 3.7 - 5.3 mmol/L Chloride 106 98 - 107 mmol/L CO2 29 20 - 31 mmol/L Anion Gap 8 (L) 9 - 16 mmol/L Glucose 136 (H) 74 - 99 mg/dL BUN 10 8 - 23 mg/dL Creatinine 0.5 (L) 0.7 - 1.2 mg/dL Est, Glom Filt Rate >90 >60 mL/min/1.73m2 Calcium 8.2 (L) 8.6 - 10.4 mg/dL CBC with Auto Differential Result Value Ref Range WBC 12.1 (H) 3.5 - 11.0 k/uL RBC 3.82 (L) 4.0 - 5.2 m/uL Hemoglobin 10.8 (L) 12.0 - 16.0 g/dL Hematocrit 33.9 (L) 36 - 46 % MCV 88.8 80 - 100 fL MCH 28.1 26 - 34 pg MCHC 31.7 31 - 37 g/dL RDW 15.0 (H) 11.5 - 14.9 % Platelets 173 150 - 450 k/uL MPV 8.9 6.0 - 12.0 fL Neutrophils % 83 (H) 36 - 66 % Lymphocytes % 13 (L) 24 - 44 % Monocytes % 3 1 - 7 % Eosinophils % 0 0 - 4 % Basophils % 0 0 - 2 % Bands 1 0 - 10 % Neutrophils Absolute 10.05 (H) 1.3 - 9.1 k/uL Lymphocytes Absolute 1.57 1.0 - 4.8 k/uL Monocytes Absolute 0.36 0.1 - 1.3 k/uL Eosinophils Absolute 0.00 0.0 - 0.4 k/uL Basophils Absolute 0.00 0.0 - 0.2 k/uL Absolute Bands 0.12 0.0 - 1.0 k/uL Morphology ANISOCYTOSIS PRESENT Morphology HYPOCHROMIA PRESENT POC Glucose Fingerstick Result Value Ref Range POC Glucose 169 (H) 65 - 105 mg/dL POC Glucose Fingerstick Result Value Ref Range POC Glucose 194 (H) 65 - 105 mg/dL POC Glucose Fingerstick Result Value Ref Range POC Glucose 159 (H) 65 - 105 mg/dL POC Glucose Fingerstick Result Value Ref Range POC Glucose 222 (H) 65 - 105 mg/dL POC Glucose Fingerstick Result Value Ref Range POC Glucose 191 (H) 65 - 105 mg/dL POC Glucose Fingerstick Result Value Ref Range POC Glucose 227 (H) 65 - 105 mg/dL POC Glucose Fingerstick Result Value Ref Range POC Glucose 177 (H) 65 - 105 mg/dL POC Glucose Fingerstick Result Value Ref Range POC Glucose 144 (H) 65 - 105 mg/dL POC Glucose Fingerstick Result Value Ref Range POC Glucose 239 (H) 65 - 105 mg/dL POC Glucose Fingerstick Result Value Ref Range POC Glucose 191 (H) 65 - 105 mg/dL POC Glucose Fingerstick Result Value Ref Range POC Glucose 188 (H) 65 - 105 mg/dL POC Glucose Fingerstick Result Value Ref Range POC Glucose 196 (H) 65 - 105 mg/dL POC Glucose Fingerstick Result Value Ref Range POC Glucose 167 (H) 65 - 105 mg/dL POC Glucose Fingerstick Result Value Ref Range POC Glucose 256 (H) 65 - 105 mg/dL POC Glucose Fingerstick Result Value Ref Range POC Glucose 175 (H) 65 - 105 mg/dL POC Glucose Fingerstick Result Value Ref Range POC Glucose 213 (H) 65 - 105 mg/dL EKG 12 Lead Result Value Ref Range Ventricular Rate 97 BPM Atrial Rate 97 BPM P-R Interval 122 ms QRS Duration 88 ms Q-T Interval 320 ms QTc Calculation (Bazett) 406 ms P [place] 84 degrees R [place] 57 degrees T [place] -119 degrees EKG 12 Lead Result Value Ref Range Ventricular Rate 54 BPM Atrial Rate 54 BPM P-R Interval 114 ms QRS Duration 82 ms Q-T Interval 392 ms QTc Calculation (Bazett) 371 ms P [place] 64 degrees R [place] 44 degrees T [place] -91 degrees EKG 12 Lead Result Value Ref Range Ventricular Rate 60 BPM Atrial Rate 60 BPM P-R Interval 112 ms QRS Duration 84 ms Q-T Interval 400 ms QTc Calculation (Bazett) 400 ms P [place] 29 degrees R [place] 46 degrees T [place] -107 degrees Echo (TTE) complete (PRN contrast/bubble/strain/3D) Result Value Ref Range LA Minor [place] 5.9 cm LA Major [place] 5.4 cm LA Area 2C 17.5 cm2 LA Area 4C 14.4 cm2 LA Volume MOD A2C 43 22 - 52 mL LA Volume MOD A4C 31 22 - 52 mL LA Volume BP 38 22 - 52 mL LA Diameter 3.1 cm RA Area 4C 11.6 cm2 RA Volume 23 ml AV Mean Gradient 8 mmHg AV VTI 40.3 cm AV Mean Velocity 1.4 m/s AV Peak Velocity 2.0 m/s AV Peak Gradient 16 mmHg AV Area by VTI 1.8 cm2 AV Area by Peak Velocity 2.0 cm2 Aortic Root 3.0 cm IVSd 0.5 (A) 0.6 - 0.9 cm LVIDd 5.4 (A) 3.9 - 5.3 cm LVIDs 4.0 cm LVOT Diameter 1.9 cm LVOT Mean Gradient 4 mmHg LVOT VTI 26.1 cm LVOT Peak Velocity 1.4 m/s LVOT Peak Gradient 8 mmHg LVPWd 0.6 0.6 - 0.9 cm LV E' Lateral Velocity 6.74 cm/s LV E' Septal Velocity 7.62 cm/s LVOT Area 2.8 cm2 LVOT SV 74.0 ml MV E Wave Deceleration Time 165.0 ms MV A Velocity 0.94 m/s MV E Velocity 1.15 m/s PV Max Velocity 1.5 m/s PV Peak Gradient 8 mmHg RV Free Wall Peak S' 13.4 cm/s TAPSE 2.2 1.7 cm TR Max Velocity 3.38 m/s TR Peak Gradient 46 mmHg Body Surface Area 1.47 m2 Fractional Shortening 2D 26 28 - 44 % LVIDd Index 3.70 cm/m2 LVIDs Index 2.74 cm/m2 LV RWT Ratio 0.22 LV Mass 2D 98.1 67 - 162 g LV Mass 2D Index 67.2 43 - 95 g/m2 MV E/A 1.22 E/E' Ratio (Averaged) 16.08 E/E' Lateral 17.06 E/E' Septal 15.09 LA Volume Index BP 26 16 - 34 ml/m2 LVOT Stroke Volume Index 50.7 mL/m2 LA Volume Index MOD A2C 29 16 - 34 ml/m2 LA Volume Index MOD A4C 21 16 - 34 ml/m2 LA Size Index 2.12 cm/m2 LA/AO Root Ratio 1.03 RA Volume Index A4C 16 mL/m2 Ao Root Index 2.05 cm/m2 AV Velocity Ratio 0.70 LVOT:AV VTI Index 0.65 LIBAN/BSA VTI 1.2 cm2/m2 LIBAN/BSA Peak Velocity 1.4 cm2/m2 EF Physician 50 % Est. RA Pressure 8 mmHg RVSP 54 mmHg PASP 54 mmHg IMAGING DATA: XR CHEST PORTABLE Result Date: 08/28/2024 EXAMINATION: ONE XRAY VIEW OF THE CHEST 08/28/2024 12:53 pm COMPARISON: None. HISTORY: ORDERING SYSTEM PROVIDED HISTORY: cough TECHNOLOGIST PROVIDED HISTORY: cough Reason for Exam: Cough/pt recent diagnosis of pneumonia FINDINGS: There is apparent scarring in the right upper lobe. Mild infiltrates are noted in the the lower lobes lungs otherwise clear. The heart and mediastinal structures appear normal. Bony structures appear normal. 1. Mild infiltrates in the lower lobes. 2. Apparent scarring in the right upper lobe. IMPRESSION: Primary Problem Pneumonia due to infectious organism Active Hospital Problems Diagnosis Date Noted Influenza A [J10.1] 08/29/2024 Chest pain [R07.9] 08/29/2024 Pneumonia due to infectious organism [J18.9] 08/28/2024 Influenza infection COPD exacerbation History of lung nodule increasing size, FDG avid History of peripancreatic lymph node FDG avid status post biopsy, reactive in nature Slightly elevated CEA RECOMMENDATIONS: I reviewed the labs/imaging available to me,outside records and discussed with the patient.I explained to the patient the nature of this problem. I explained the significance of these abnormalities and possible etiology and management options Reviewed records from outside facility Reviewed records from Care Everywhere Patient seems to have advanced dementia Acute resp failure from Influenza A infection The lung nodules will be followed as outpatient. Recommend continued surveillance for FDG avid lung nodule and FDG avid peripancreatic lymph node. This can be done closer to patient's home. Patient already has establish care in [place] Respiratory status much improved Continue management of influenza and COPD exacerbation at this point. Will be available as needed Discussed with patient and Nurse. Thank you for asking us to see this patient. Bobbi Hall MD Control Panel Operator Crude Unit/Medical Oncologist [facility] hematology oncology physicians This note is created with the assistance of a speech recognition program. While intending to generate a document that actually reflects the content of the visit, the document can still have some errors including those of syntax and sound a like substitutions which may escape proof reading. It such instances, actual meaning can be extrapolated by contextual diversion. Date: 09/01/2024 Patient name: Kym Briscoe Date of admission: 08/28/2024 12:41 PM Date of : 1955 PCP: Tomi Sandra II, MD Reason for Admission: Influenza A [J10.1] COPD exacerbation (HCC) [J44.1] Pneumonia due to infectious agent [J18.9] Community acquired pneumonia, unspecified laterality [J18.9] Cardiology Follow-Up: Abnormal ECG abnormal troponin Referring physician: Dr Rusty Sibley Impression Admission 08/28/2024 with increasing shortness of breath, productive cough, marked leukocytosis, viral study positive for influenza A Acute hypoxic respiratory failure Borderline abnormal high-sensitivity troponin Abnormal ECG marked ST-T abnormalities inferior leads and precordial leads Mildly dilated LV, ejection fraction 50 to 55% Moderate pulmonary hypertension RVSP 54 mmHg Diabetes mellitus Hyperlipidemia Dementia Current smoker History of present illness 68-year-old female with a past medical history of COPD, history of smoking type 2 diabetes, hypertension, dementia got hospitalized 08/28/2024 with increasing shortness of breath, productive cough. Chest x-ray on admission showed mild infiltrates. She also had a marked leukocytosis and viral study positive for influenza A. ECG showed marked ST-T abnormalities in the inferior leads and precordial leads. Lab work on admission High-sensitivity troponin 9, 25 Sodium 135 potassium 3.7, creatinine 1.0, magnesium 1.3, glucose 127 and 225 WBC 19.0 hemoglobin 12.9 platelets 198 Influenza A detected Current evaluation Patient seen and examined, medications and labs checked discussed with the patient's nurse She was resting on the bed in upright position Feeling much better No further episode of chest heaviness She had good diuresis urine output 2300 mL Significant improvement in the chest examination improvement in the crackles No peripheral edema She had 1 more dose of Lasix 40 mg IV today Blood pressure 128/65 heart rate 60 Medications: Scheduled Meds: [START ON 09/02/2024] bumetanide 1 mg Oral Daily methylPREDNISolone 40 mg IntraVENous Q12H isosorbide mononitrate 30 mg Oral Daily losartan 25 mg Oral Daily oseltamivir 75 mg Oral BID atorvastatin 40 mg Oral Nightly metoprolol succinate 50 mg Oral Daily PARoxetine 20 mg Oral Daily budesonide-formoterol 2 puff Inhalation BID RT And tiotropium 2 puff Inhalation Daily RT sodium chloride flush 5-40 mL IntraVENous 2 times per day heparin (porcine) 5,000 Units SubCUTAneous 3 times per day albuterol 2.5 mg Nebulization 4x Daily RT insulin lispro 0-4 Units SubCUTAneous 4x Daily AC & HS donepezil 10 mg Oral Nightly mirtazapine 30 mg Oral Nightly nicotine 1 patch TransDERmal Daily Continuous Infusions: sodium chloride dextrose CBC: Recent Labs 08/30/24 0618 08/31/24 0339 09/01/24 0421 WBC 17.7* 14.0* 12.1* HGB 11.2* 11.3* 10.8* PLT 177 182 173 BMP: Recent Labs 08/30/2418 08/31/249 09/01/24 0421 NA 146* 143 143 K 4.5 4.2 3.8 CL 111* 109* 106 CO2 28 26 29 BUN 8 8 10 CREATININE 0.6* 0.6* 0.5* GLUCOSE 162* 152* 136* Hepatic: No results for input(s): AST , ALT , BILITOT , ALKPHOS in the last 72 hours. Invalid input(s): ALB Troponin: No results for input(s): TROPONINI in the last 72 hours. BNP: No results for input(s): BNP in the last 72 hours. Lipids: No results for input(s): CHOL , HDL in the last 72 hours. Invalid input(s): LDLCALCU INR: No results for input(s): INR in the last 72 hours. Objective: Vitals: BP 128/65 Pulse 54 Temp 98.5 F (36.9 C) (Oral) Resp 17 Ht 1.499 m (4' 11 ) Wt 52.5 kg (115 lb 11.9 oz) SpO2 95% BMI 23.38 kg/m General appearance: alert and cooperative with exam HEENT: Head: Normal, normocephalic, atraumatic. Neck: supple, symmetrical, trachea midline Lungs: Poor chest expansion diminished breath sounds basal crackles Heart: Cardiac apical impulse not palpable heart sounds distant Abdomen: Obese soft bowel sounds present Extremities: Homans sign is negative, no sign of DVT Neurologic: Mental status: Alert awake communicating well EKG: Sinus rhythm, marked ST-T abnormalities inferior leads and precordial leads. ECHO: ordered, but not yet obtained. Ejection fraction: 50 to 55%, mildly dilated LV normal LV wall thickness no obvious wall motion abnormality noted Normal IVC diameter and respiratory variation Stress Test: not obtained. Cardiac Angiography: not obtained. Assessment Admission with acute exacerbation of COPD, influenza A detected Acute hypoxic respiratory failure Borderline abnormal high-sensitivity troponin Abnormal ECG marked ST-T abnormalities in multiple leads inferior leads and precordial leads ECG 08/30/2024 sinus bradycardia, ST-T abnormalities inferior and precordial leads, artifacts Congestive heart failure elevated proBNP 1456 Low normal LV systolic function ejection fraction 50 to 55% Moderate pulmonary hypertension right ventricular systolic pressure 54 mmHg Patient Active Problem List: Abnormal gastrointestinal PET scan Pneumonia due to infectious organism Influenza A Chest pain Plan of Treatment: Medications reviewed 1: COPD exacerbation acute hypoxic respiratory failure, influenza A positive patient is on Tamiflu, bronchodilators and steroids Nicotine patch 2: Borderline abnormal high-sensitivity troponin and abnormal ECG 2D echo showed normal wall motion ejection fraction 50 to 55% Continue current dose of Lipitor 40 mg a day, metoprolol 50 mg a day 3: Congestive heart failure elevated proBNP 14,556 jugular venous distention++, pulmonary hypertension Give Lasix 40 mg IV today, changed to Bumex 1 mg p.o. 10/31/2024 Added Imdur 30 mg a day and losartan 25 mg a day will assess again most likely she is going to need Bumex 2 mg 4: Multiple cardiac risk factor continue current dose of Lipitor 40 mg, add aspirin 81 mg 5: Alzheimer's disease she is on Aricept Continue current dose sub cu heparin 5000 units 3 times a day Continue ECG monitoring Pulmonary Progress Note Pulmonary and Critical Care Specialists Patient - Kym Briscoe, Age - 68 y.o. - 1955 Room Number - [id number] - [id number] [facility] # - [id number] Date of Admission - 08/28/2024 12:41 PM Consulting Service/Physician Consulting - Loco Trinh MD Primary Care Physician - Tomi Sandra II, MD SUBJECTIVE In good spirits. Patient's daughter present at bedside OBJECTIVE VITALS height is 1.499 m (4' 11 ) and weight is 52.5 kg (115 lb 11.9 oz). Her oral temperature is 98.1 F (36.7 C). Her blood pressure is 171/68 (abnormal) and her pulse is 78. Her respiration is 22 and oxygen saturation is 92%. Body mass index is 23.38 kg/m . Temperature Range: Temp: 98.1 F (36.7 C) Temp Av.3 F (36.8 C) Min: 98.1 F (36.7 C) Max: 98.4 F (36.9 C) BP Range: Systolic (24hrs), Av , Min:123 , Max:216 Diastolic (24hrs), Av, Min:43, Max:94 Pulse Range: Pulse Av.4 Min: 50 Max: 78 Respiration Range: Resp Av.3 Min: 10 Max: 23 Current Pulse Ox:: SpO2: 92 % 24HR Pulse Ox Range: SpO2 Av.9 % Min: 90 % Max: 100 % Oxygen Amount and Delivery: O2 Flow Rate (L/min): 2 L/min Wt Readings from Last 3 Encounters: 09/01/24 52.5 kg (115 lb 11.9 oz) 07/26/24 52.6 kg (116 lb) 05/17/24 54.4 kg (120 lb) I/O (24 Hours) Intake/Output Summary (Last 24 hours) at 09/01/2024 1342 Last data filed at 09/01/2024 1317 Gross per 24 hour Intake 969.44 ml Output 2475 ml Net -1505.56 ml EXAM General Appearance Awake, alert, oriented, in no acute distress HEENT - normocephalic, atraumatic. Neck - Supple, trachea midline Lungs -diminished but clear no crackles rales or wheezes Heart Exam:PMI normal. No lifts, heaves, or thrills. RRR. No murmurs, clicks, gallops, or rubs Abdomen Exam: Abdomen soft, non-tender. Extremity Exam: No signs of discoloration MEDS [START ON 09/02/2024] bumetanide 1 mg Oral Daily isosorbide mononitrate 30 mg Oral Daily losartan 25 mg Oral Daily methylPREDNISolone 40 mg IntraVENous Q8H oseltamivir 75 mg Oral BID atorvastatin 40 mg Oral Nightly metoprolol succinate 50 mg Oral Daily PARoxetine 20 mg Oral Daily budesonide-formoterol 2 puff Inhalation BID RT And tiotropium 2 puff Inhalation Daily RT sodium chloride flush 5-40 mL IntraVENous 2 times per day heparin (porcine) 5,000 Units SubCUTAneous 3 times per day albuterol 2.5 mg Nebulization 4x Daily RT insulin lispro 0-4 Units SubCUTAneous 4x Daily AC & HS donepezil 10 mg Oral Nightly mirtazapine 30 mg Oral Nightly nicotine 1 patch TransDERmal Daily sodium chloride dextrose sulfur hexafluoride microspheres, HYDROcodone-acetaminophen, benzonatate, diazePAM, OLANZapine zydis, sodium chloride flush, sodium chloride, potassium chloride OR potassium alternative oral replacement OR potassium chloride, magnesium sulfate, ondansetron OR ondansetron, polyethylene glycol, acetaminophen OR acetaminophen, glucose, dextrose bolus OR dextrose bolus, glucagon (rDNA), dextrose LABS CBC Recent Labs 09/01/24 0421 WBC 12.1* HGB 10.8* HCT 33.9* MCV 88.8 PLT 173 BMP: Lab Results Component Value Date/Time NA 143 09/01/2024 04:21 AM K 3.8 09/01/2024 04:21 AM CL 106 09/01/2024 04:21 AM CO2 29 09/01/2024 04:21 AM BUN 10 09/01/2024 04:21 AM CREATININE 0.5 09/01/2024 04:21 AM CALCIUM 8.2 09/01/2024 04:21 AM LABGLOM >90 09/01/2024 04:21 AM ABGs:No results found for: PHART , PO2ART , [id number] No results found for: IFIO2 , MODE , SETTIDVOL , SETPEEP Ionized Calcium: No components found for: IONCA Magnesium: Lab Results Component Value Date/Time MG 1.3 08/28/2024 01:26 PM Phosphorus: No results found for: PHOS LIVER PROFILE No results for input(s): AST , ALT , LIPASE , AMYLASE , BILIDIR , BILITOT , ALKPHOS in the last 72 hours. Invalid input(s): ALB INR No results for input(s): INR in the last 72 hours. PTT No results found for: APTT RADIOLOGY (See actual reports for details) ASSESSMENT/PLAN Patient Active Problem List Diagnosis Abnormal gastrointestinal PET scan Pneumonia due to infectious organism Influenza A Chest pain Influenza A, also has elevated procalcitonin level but no definitive consolidation on x-ray Acute exacerbation of COPD secondary to viral illness Acute hypoxemic respiratory failure not normally on oxygen, was offered by primary care [employer] in past per daughter but verbally declined due to smoking Hypotension, resolved Lung nodules,, some are 4 mm, largest 14 mm in the left hilar region per CT report from July, followed by pulmonary in [place] Diabetes mellitus type 2 Dementia-seems to be quite severe Hypertension Dyslipidemia Tobacco dependence still actively smoking Full code Finishing up the course of Tamiflu. On Symbicort and Spiriva Albuterol nebulizer treatments Decrease Solu-Medrol to 40 every 12 hours [facility] PROGRESS NOTE 09/01/2024 9:15 AM Name: Kym Briscoe Acct: [id number] Room: IP Day: 4 Admit Date: 08/28/2024 12:41 PM PCP: Tomi Sandra II, MD Code Status: Full Code Subjective: C/C: Chief Complaint Patient presents with Shortness of Breath Fatigue Headache Cough Interval History Status: improved. Seen at bedside this morning. States that she is feeling well. Reports improvement of SOB, cough, and chest pain. Mild headache and back pain. Patient does have elevated blood pressure 180 systolic earlier this morning repeat 158/63 following blood pressure medications. O2 saturation at 99% on 2 L via nasal cannula. No increased work of breathing noted on exam. Patient continues on Solu-Medrol 40 mg every 8 hours and Tamiflu. Cardiology evaluated patient. Per recommendation continue patient on Lipitor, metoprolol, and heparin. BNP elevated 1456. ECHO completed showing low normal left ventricular systolic function with an estimated EF of 50 to 55%. Per cardiology, 40 mg IV Lasix ordered. Patient also evaluated by heme-onc for suspicion of malignancy on previous PET scan. Per recommendation, continue to follow-up with [facility] as outpatient. Brief History: The patient is a 68 y.o. Non- / non female who presents withShortness of Breath, Fatigue, Headache, and Cough and she is admitted to the hospital for the management of COPD exacerbation secondary to influenza. PMH COPD, type 2 diabetes, hypertension, dementia. No reported cardiac history Patient has cough, productive sputum, shortness of breath for past few days. Worse with both ambulation and lying flat. No fevers or chills. Hypoxia on room air needing nasal cannula. Uses breathing treatments not oxygen at home. Patient was transferred from [facility] for multifocal pneumonia treatment as her is being treated here for some time. Wants to be near her who she reports is dying. Her granddaughter decreased appetite and oral intake for the last day and believes that she has had some low blood sugar readings. Does have dementia but is an orientated and appropriate responses normally baseline. Allergies to codeine and contrast. Full code. Review of Systems: Review of Systems Constitutional: Negative for activity change and appetite change. Respiratory: Negative for chest tightness and shortness of breath. Cardiovascular: Negative for chest pain. Gastrointestinal: Negative for abdominal pain and constipation. Genitourinary: Negative for difficulty urinating. Neurological: Positive for headaches. Medications: Allergies: Allergies Allergen Reactions Iodinated Contrast Media Itching Codeine Rash Current Meds: Scheduled Meds: isosorbide mononitrate 30 mg Oral Daily losartan 25 mg Oral Daily methylPREDNISolone 40 mg IntraVENous Q8H oseltamivir 75 mg Oral BID atorvastatin 40 mg Oral Nightly metoprolol succinate 50 mg Oral Daily PARoxetine 20 mg Oral Daily budesonide-formoterol 2 puff Inhalation BID RT And tiotropium 2 puff Inhalation Daily RT cefTRIAXone (ROCEPHIN) IV 1,000 mg IntraVENous Q24H sodium chloride flush 5-40 mL IntraVENous 2 times per day heparin (porcine) 5,000 Units SubCUTAneous 3 times per day albuterol 2.5 mg Nebulization 4x Daily RT insulin lispro 0-4 Units SubCUTAneous 4x Daily AC & HS donepezil 10 mg Oral Nightly mirtazapine 30 mg Oral Nightly nicotine 1 patch TransDERmal Daily Continuous Infusions: sodium chloride dextrose PRN Meds: sulfur hexafluoride microspheres, HYDROcodone-acetaminophen, benzonatate, diazePAM, OLANZapine zydis, sodium chloride flush, sodium chloride, potassium chloride OR potassium alternative oral replacement OR potassium chloride, magnesium sulfate, ondansetron OR ondansetron, polyethylene glycol, acetaminophen OR acetaminophen, glucose, dextrose bolus OR dextrose bolus, glucagon (rDNA), dextrose Data: Past Medical History: has a past medical history of COPD (chronic obstructive pulmonary disease) (HCC), Diabetes mellitus (HCC), Emphysema lung (HCC), Hypertension, and UTI (urinary tract infection). Social History: reports that she has been smoking cigarettes. She started smoking about 67 years ago. She has a 134.2 pack-year smoking history. She has never used smokeless tobacco. She reports current alcohol use. She reports that she does not use drugs. Family History: Family History Problem Relation Age of Onset Colon Cancer Neg Hx Vitals: BP (!) 158/63 Pulse 74 Temp 98.1 F (36.7 C) (Oral) Resp 16 Ht 1.499 m (4' 11 ) Wt 52.5 kg (115 lb 11.9 oz) SpO2 97% BMI 23.38 kg/m Temp (24hrs), Av.2 F (36.8 C), Min:98.1 F (36.7 C), Max:98.4 F (36.9 C) Recent Labs 08/30/24 1607 08/30/24 2212 08/31/24 1136 08/31/242058 POCGLU 191* 188* 196* 167* I/O(24Hr): Intake/Output Summary (Last 24 hours) at 09/01/2024 0915 Last data filed at 09/01/2024 0605 Gross per 24 hour Intake 969.44 ml Output 2025 ml Net -1055.56 ml Labs: @JESU3@ Lab Results Component Value Date/Time SPECIAL Site: Sputum 08/29/2024 02:09 PM Lab Results Component Value Date/Time CULTURE NORMAL RESPIRATORY DAAR LIGHT GROWTH 08/29/2024 02:09 PM @MLHABGPOC@ Radiology: XR CHEST PORTABLE Result Date: 08/28/2024 EXAMINATION: ONE XRAY VIEW OF THE CHEST 08/28/2024 12:53 pm COMPARISON: None. HISTORY: ORDERING SYSTEM PROVIDED HISTORY: cough TECHNOLOGIST PROVIDED HISTORY: cough Reason for Exam: Cough/pt recent diagnosis of pneumonia FINDINGS: There is apparent scarring in the right upper lobe. Mild infiltrates are noted in the the lower lobes lungs otherwise clear. The heart and mediastinal structures appear normal. Bony structures appear normal. 1. Mild infiltrates in the lower lobes. 2. Apparent scarring in the right upper lobe. Physical Examination: Physical Exam Constitutional: Appearance: Normal appearance. Cardiovascular: Rate and Rhythm: Normal rate and regular rhythm. Pulses: Normal pulses. Pulmonary: Breath sounds: No wheezing (mild). Abdominal: General: There is distension. Palpations: Abdomen is soft. Musculoskeletal: Right lower leg: No edema. Left lower leg: No edema. Assessment: Primary Problem Pneumonia due to infectious organism Active Hospital Problems Diagnosis Date Noted Influenza A [J10.1] 08/29/2024 Chest pain [R07.9] 08/29/2024 Pneumonia due to infectious organism [J18.9] 08/28/2024 Plan: COPD exacerbation secondary to pneumonia versus other infectious etiology -Chest x-ray shows mild infiltrates in the lower lobes and apparent scarring in right lower lobe -Patient symptoms including significant shortness of breath, wheezing and cough. 74 O2 on room air, started on 4 L O2 nasal cannula with improvement. Not normally on oxygen -Adequate oxygen saturation on 2 L of oxygen via nasal cannula 08/31 -Positive influenza -Leukocytosis downtrending -Pro-Javy 1.48 on admission, 0.92 on 08/31 -Respiratory culture no significant pathogen seen -DuoNeb in ED -Solu-Medrol every 8 hours -Albuterol, Symbicort, Spiriva -Acapella device -Tamiflu -Azithromycin and ceftriaxone. Likely discontinue today 08/30/24 as cultures have no growth -Tessalon Perles for cough -Patient did spike a fever evening 08/29/24. Urine culture, blood culture obtained-negative for growth Elevated troponin, possibly secondary to CAD -Troponin 22-> 25-> 19 -BNP 1456 on 08/31 -EKG sinus rhythm -ECHO completed yesterday showing low normal left ventricular systolic function with an estimated EF of 50 to 55% -Cardiology consulted and following with patient, per recommendation continue patient on Lipitor, metoprolol, heparin - Lasix 40 mg IV one time ordered this morning -Her initial home meds were Cozaar 50 mg Toprol 100 mg -Per cardiology Toprol 50, Cozaar 25, Imdur 30 Mildly prominent portacaval lymph nodes and pulmonary nodules suspicious for malignancy -Active smoker -Patient previously had CT abdomen pelvis with IV contrast 07/19/24 at outside facility showing suspicion for malignancy -PET scan showed FDG avid lung nodule and peripancreatic lymph node -EGD and EUS and biopsy of pancreatic lymph node negative -Has had follow-ups in [place] -Heme-onc consulted and following with patient, plan to continue workup as outpatient at [facility]. Type 2 diabetes -Glucose in ED 127 -POCT glucose checks -Hypoglycemia protocol -Low dose sliding scale Hypotensive episodes in patient with history of hypertension -Toprol-XL 100 mg home medication ordered as Toprol-XL 50 mg - held due to low BP -Losartan held for possible ERASMO. Creatinine 1.0 but previous 2023 0.74 and Cr Cl 40 ml/min -Hypotensive episode likely secondary to dehydration low oral intake on evening of 08/28/24 -Patient was transferred to ICU and needed midodrine which was discontinued as of noon 08/29/24 -Stable not for PCU -Per cardiology Imdur 30, Toprol-XL 50, Cozaar 25 Hyperlipidemia -Continue home medication Lipitor Anxiety, Dementia -Continue home medications Valium, Paxil,Aricept -Zyprexa as needed for agitation. Pulling at her lines in the ED, needed multiple reminders to not do so. DVT prophylaxis: Heparin 5000 units 3 times daily GI prophylaxis: Not indicated at this time Diet: 5 Carb diet Code: Full Discharge planning: TBD Wilma Domingo MD PGY I Transitional Year Resident 09/01/2024 9:15 AM To be discussed with attending Electronically signed by Wilma Domingo MD Attending Physician Statement I have discussed the care of Kym Briscoe and I have examined the patient myself and taken ROS and HPI, including pertinent history and exam findings, with the resident. I have reviewed the iqbal elements of all parts of the encounter with the resident. I agree with the assessment, plan and orders as documented by the resident. Medical improved on IV steroids dose was decreased yesterday continues to have mild expiratory wheezing, Okay to transfer out of ICU RN notified residents of patient's high blood pressure. They said to wait a half hour for medications to work and to call back if still high. Daughter/Kwabena called in for update. Updated, questions answered, support offered. Images from the original note were not included. Today's Date: 08/31/2024 Patient Name: Kym Briscoe Date of admission: 08/28/2024 12:41 PM Patient's age: 68 y.o., 1955 Admission Dx: Influenza A [J10.1] COPD exacerbation (HCC) [J44.1] Pneumonia due to infectious agent [J18.9] Community acquired pneumonia, unspecified laterality [J18.9] Reason for Consult: management recommendations Requesting Physician: Rusty Mcghee MD CHIEF COMPLAINT: Influenza A. Shortness of breath. FDG avid lung lesion and peripancreatic lymphadenopathy History Obtained From: patient, electronic medical record, Quality of history: poor historian Interval history: Patient seen and examined Lab work reviewed No new complaint or interval event Patient resting comfortably. Remains on antibiotics Denies fever chills HISTORY OF PRESENT ILLNESS: The patient is a 68 y.o. female who is admitted to the hospital with chief complaint of shortness of breath. Patient is not a good historian. Patient was transferred from [facility] for multifocal pneumonia. Patient influenza testing came back positive. She started on Tamiflu. Patient also on azithromycin and Rocephin oncology team consulted for CT scan showed portacaval lymph node. Apparently patient has had CT PET done and these lymph nodes were FDG avid. CT scan also shows pulmonary nodules largest 1 measuring 14 mm in greatest dimension according to the report available this nodule FDG avid concerning for malignancy Workup available in Care Everywhere shows slightly elevated CEA at 6.9 patient CA 19-9 was within range. Patient does have biopsy in Care Everywhere which showed lymphoid tissue favor reactive etiology. Patient has been seen by GI at [facility], Dr. Ford. Past Medical History: has a past medical history of COPD (chronic obstructive pulmonary disease) (HCC), Diabetes mellitus (HCC), Emphysema lung (HCC), Hypertension, and UTI (urinary tract infection). Past Surgical History: has a past surgical history that includes section and Upper gastrointestinal endoscopy (N/A, 05/17/2024). Medications: Prior to Admission medications Medication Sig Start Date End Date Taking? Authorizing Provider doxycycline hyclate (VIBRA-TABS) 100 MG tablet Take 1 tablet by mouth 2 times daily 08/28/24 09/04/24 Yes Dallin Patiño MD HYDROcodone-acetaminophen (NORCO) 5-325 MG per tablet Take 1 tablet by mouth every 8 hours as needed for Pain. Max Daily Amount: 3 tablets Yes Dallin Patiño MD losartan (COZAAR) 50 MG tablet Take 1 tablet by mouth daily Yes Dallin Patiño MD predniSONE (DELTASONE) 50 MG tablet Take 1 tablet by mouth daily 08/28/24 09/02/24 Yes Dallin Patiño MD donepezil (ARICEPT) 10 MG tablet Take 1 tablet by mouth nightly Yes Dallin Patiño MD mirtazapine (REMERON) 30 MG tablet Take 1 tablet by mouth nightly Yes Dallin Patiño MD metoprolol succinate (TOPROL XL) 100 MG extended release tablet Take 1 tablet by mouth daily Dallin Patiño MD vitamin D 50 MCG (2000 UT) CAPS capsule Take 1 capsule by mouth daily Dallin Patiño MD albuterol sulfate HFA (PROVENTIL;VENTOLIN;PROAIR) 108 (90 Base) MCG/ACT inhaler INHALE 1 PUFF BY MOUTH EVERY 4 HOURS NEEDED Dallin Patiño MD atorvastatin (LIPITOR) 40 MG tablet Take 1 tablet by mouth Every Day Dallin Patiño MD benzonatate (TESSALON) 200 MG capsule Take 1 capsule by mouth 2 times daily as needed for Cough 03/26/24 Dallin Patiño MD diazePAM (VALIUM) 10 MG tablet Take 1 tablet by mouth every 12 hours as needed. 09/27/23 Dallin Patiño MD wjdhnadihsr-cnbfmpoxe-uoljyf (TRELEGY ELLIPTA) 100-62.5-25 MCG/ACT AEPB inhaler Inhale 1 puff into the lungs daily 10/22/23 Dallin Patiño MD gabapentin (NEURONTIN) 300 MG capsule Take 1 capsule by mouth 3 times daily. Patient not taking: Reported on 08/28/2024 Dallin Patiño MD glimepiride (AMARYL) 2 MG tablet TAKE 1 TABLET BY MOUTH EVERY DAY WITH BREAKFAST or the first main meal of the day Dallin Patiño MD metFORMIN (GLUCOPHAGE) 500 MG tablet Take 1 tablet by mouth 2 times daily (with meals) Dallin Patiño MD PARoxetine (PAXIL) 40 MG tablet Take 1 tablet by mouth every morning 03/26/24 Dallin Patiño MD Current Facility-Administered Medications Medication Dose Route Frequency Provider Last Rate Last Admin isosorbide mononitrate (IMDUR) extended release tablet 30 mg 30 mg Oral Daily Puja Ferreira MD 30 mg at 08/31/24 1042 losartan (COZAAR) tablet 25 mg 25 mg Oral Daily Puja Ferreira MD 25 mg at 08/31/24 1042 methylPREDNISolone sodium succ (SOLU-MEDROL) 40 mg in sterile water 1 mL injection 40 mg IntraVENous Q8H Renee Tavares MD sulfur hexafluoride microspheres (LUMASON) 60.7-25 MG injection 2 mL 2 mL IntraVENous ONCE PRN Puja Ferreira MD oseltamivir (TAMIFLU) capsule 75 mg 75 mg Oral BID Renee Tavares MD 75 mg at 08/31/24 0825 HYDROcodone-acetaminophen (NORCO) 5-325 MG per tablet 1 tablet 1 tablet Oral Q8H PRN Wilma Domingo MD 1 tablet at 08/31/24 0647 atorvastatin (LIPITOR) tablet 40 mg 40 mg Oral Nightly Renee Tavares MD 40 mg at 08/30/24 2148 benzonatate (TESSALON) capsule 100 mg 100 mg Oral Q4H PRN Renee Tavares MD 100 mg at 08/29/24 0820 diazePAM (VALIUM) tablet 10 mg 10 mg Oral Q12H PRN Renee Tavares MD 10 mg at 08/31/24 0826 metoprolol succinate (TOPROL XL) extended release tablet 50 mg 50 mg Oral Daily Renee Tavares MD 50 mg at 08/31/24 0826 PARoxetine (PAXIL) tablet 20 mg 20 mg Oral Daily Renee Tavares MD 20 mg at 08/31/24 0826 budesonide-formoterol (SYMBICORT) 160-4.5 MCG/ACT inhaler 2 puff 2 puff Inhalation BID RT Renee Tavares MD 2 puff at 08/31/24 0707 And tiotropium (SPIRIVA RESPIMAT) 2.5 MCG/ACT inhaler 2 puff 2 puff Inhalation Daily RT Renee Tavares MD 2 puff at 08/31/24 0707 azithromycin (ZITHROMAX) 500 mg in sodium chloride 0.9 % 250 mL IVPB (Ngbs7Geh) 500 mg IntraVENous Q24H Renee Tavares MD Stopped at 08/30/24 1650 cefTRIAXone (ROCEPHIN) 1,000 mg in sterile water 10 mL IV syringe 1,000 mg IntraVENous Q24H Renee Tavares MD 1,000 mg at 08/31/24 1141 OLANZapine zydis (ZYPREXA) disintegrating tablet 10 mg 10 mg Oral Q12H PRN Renee Tavares MD sodium chloride flush 0.9 % injection 5-40 mL 5-40 mL IntraVENous 2 times per day Renee Tavares MD 10 mL at 08/31/24 0828 sodium chloride flush 0.9 % injection 5-40 mL 5-40 mL IntraVENous PRN Renee Tavares MD 0.9 % sodium chloride infusion IntraVENous PRN Renee Tavares MD potassium chloride (KLOR-CON M) extended release tablet 40 mEq 40 mEq Oral PRN Renee Tavares MD Or potassium bicarb-citric acid (EFFER-K) effervescent tablet 40 mEq 40 mEq Oral PRN Renee Tavares MD Or potassium chloride 10 mEq/100 mL IVPB (Peripheral Line) 10 mEq IntraVENous PRN Renee Tavares MD magnesium sulfate 2000 mg in water 50 mL IVPB 2,000 mg IntraVENous PRN Renee Tavares MD ondansetron (ZOFRAN-ODT) disintegrating tablet 4 mg 4 mg Oral Q8H PRN Renee Tavares MD Or ondansetron (ZOFRAN) injection 4 mg 4 mg IntraVENous Q6H PRN Renee Tavares MD 4 mg at 08/30/24 0545 polyethylene glycol (GLYCOLAX) packet 17 g 17 g Oral Daily PRN Renee Tavares MD acetaminophen (TYLENOL) tablet 650 mg 650 mg Oral Q6H PRN Renee Tavares MD 650 mg at 08/30/24 2218 Or acetaminophen (TYLENOL) suppository 650 mg 650 mg Rectal Q6H PRN Renee Tavares MD heparin (porcine) injection 5,000 Units 5,000 Units SubCUTAneous 3 times per day Renee Tavares MD 5,000 Units at 08/31/24 1436 albuterol (PROVENTIL) (2.5 MG/3ML) 0.083% nebulizer solution 2.5 mg 2.5 mg Nebulization 4x Daily RT Wilma Domingo MD 2.5 mg at 08/31/24 1450 glucose chewable tablet 16 g 4 tablet Oral PRN Wilma Domingo MD dextrose bolus 10% 125 mL 125 mL IntraVENous PRN Wilma Domingo MD Or dextrose bolus 10% 250 mL 250 mL IntraVENous PRN Wilma Domingo MD glucagon injection 1 mg 1 mg SubCUTAneous PRN Wilma Domingo MD dextrose 10 % infusion IntraVENous Continuous PRN Wilma Domingo MD insulin lispro (HUMALOG,ADMELOG) injection vial 0-4 Units 0-4 Units SubCUTAneous 4x Daily AC & HS Wilma Domingo MD 1 Units at 08/31/24 1203 donepezil (ARICEPT) tablet 10 mg 10 mg Oral Nightly Wilma Domingo MD 10 mg at 08/30/242147 mirtazapine (REMERON) tablet 30 mg 30 mg Oral Nightly Wilma Domingo MD 30 mg at 08/30/242147 nicotine (NICODERM CQ) 21 MG/24HR 1 patch 1 patch TransDERmal Daily Wilma Domingo MD 1 patch at 08/31/24 0855 Allergies: Iodinated contrast media and Codeine Social History: reports that she has been smoking cigarettes. She started smoking about 67 years ago. She has a 134.2 pack-year smoking history. She has never used smokeless tobacco. She reports current alcohol use. She reports that she does not use drugs. Family History: family history is not on file. REVIEW OF SYSTEMS: Constitutional: No fever or chills. No night sweats, no weight loss Eyes: No eye discharge, double vision, or eye pain HEENT: negative for sore mouth, sore throat, hoarseness and voice change Respiratory: negative for cough , sputum, dyspnea, wheezing, hemoptysis, chest pain Cardiovascular: negative for chest pain, dyspnea, palpitations, orthopnea, PND Gastrointestinal: negative for nausea, vomiting, diarrhea, constipation, abdominal pain, Dysphagia, hematemesis and hematochezia Genitourinary: negative for frequency, dysuria, nocturia, urinary incontinence, and hematuria Integument: negative for rash, skin lesions, bruises. Hematologic/Lymphatic: negative for easy bruising, bleeding, lymphadenopathy, or petechiae Endocrine: negative for heat or cold intolerance,weight changes, change in bowel habits and hair loss Musculoskeletal: negative for myalgias, arthralgias, pain, joint swelling,and bone pain Neurological: negative for headaches, dizziness, seizures, weakness, numbness PHYSICAL EXAM: BP (!) 153/68 Pulse 62 Temp 97.8 F (36.6 C) (Axillary) Resp 16 Ht 1.499 m (4' 11 ) Wt 52.2 kg (115 lb) SpO2 100% BMI 23.23 kg/m Temp (24hrs), Av.9 F (36.6 C), Min:97.5 F (36.4 C), Max:98.1 F (36.7 C) General appearance - well appearing, no in pain or distress Mental status - alert and cooperative Eyes - pupils equal and reactive, extraocular eye movements intact Ears - bilateral TM's and external ear canals normal Mouth - mucous membranes moist, pharynx normal without lesions Neck - supple, no significant adenopathy Lymphatics - no palpable lymphadenopathy, no hepatosplenomegaly Chest - clear to auscultation, no wheezes, rales or rhonchi, symmetric air entry Heart - normal rate, regular rhythm, normal S1, S2, no murmurs Abdomen - soft, nontender, nondistended, no masses or organomegaly Neurological - alert, oriented, normal speech, no focal findings or movement disorder noted Musculoskeletal - no joint tenderness, deformity or swelling Extremities - peripheral pulses normal, no pedal edema, no clubbing or cyanosis Skin - normal coloration and turgor, no rashes, no suspicious skin lesions noted , DATA: Labs: Results for orders placed or performed during the hospital encounter of 08/28/24 COVID-19 & Influenza Combo Specimen: Nasopharyngeal Swab Result Value Ref Range Specimen Description .NASOPHARYNGEAL SWAB Source .NASOPHARYNGEAL SWAB SARS-CoV-2 RNA, RT PCR Not Detected Not Detected Influenza A DETECTED (A) Not Detected Influenza B Not Detected Not Detected Culture, Respiratory Specimen: Sputum Expectorated Result Value Ref Range Specimen Description .EXPECTORATED SPUTUM Special Requests Site: Sputum Direct Exam < 10 EPITHELIAL CELLS/LPF Direct Exam <10 NEUTROPHILS/LPF Direct Exam NO SIGNIFICANT PATHOGENS SEEN Culture NORMAL RESPIRATORY DARA LIGHT GROWTH Culture, Blood 1 Specimen: Blood Result Value Ref Range Specimen Description .BLOOD LAC Special Requests Culture NO GROWTH 2 DAYS Culture, Blood 1 Specimen: Blood Result Value Ref Range Specimen Description .BLOOD LH Special Requests Culture NO GROWTH 2 DAYS Culture, Urine Specimen: Urine, clean catch Result Value Ref Range Specimen Description .CLEAN CATCH URINE Special Requests Site: Urine Culture NO GROWTH MRSA DNA Probe, Nasal Specimen: Nasal; Nares Result Value Ref Range Specimen Description .NASAL SWAB MRSA, DNA, Nasal NEGATIVE NEGATIVE CBC with Auto Differential Result Value Ref Range WBC 19.0 (H) 3.5 - 11.0 k/uL RBC 4.59 4.0 - 5.2 m/uL Hemoglobin 12.9 12.0 - 16.0 g/dL Hematocrit 40.7 36 - 46 % MCV 88.6 80 - 100 fL MCH 28.0 26 - 34 pg MCHC 31.6 31 - 37 g/dL RDW 14.5 11.5 - 14.9 % Platelets 198 150 - 450 k/uL MPV 9.0 6.0 - 12.0 fL Neutrophils % 89 (H) 36 - 66 % Lymphocytes % 3 (L) 24 - 44 % Monocytes % 7 1 - 7 % Eosinophils % 1 0 - 4 % Basophils % 0 0 - 2 % Neutrophils Absolute 16.91 (H) 1.3 - 9.1 k/uL Lymphocytes Absolute 0.57 (L) 1.0 - 4.8 k/uL Monocytes Absolute 1.33 (H) 0.1 - 1.3 k/uL Eosinophils Absolute 0.19 0.0 - 0.4 k/uL Basophils Absolute 0.00 0.0 - 0.2 k/uL Morphology Normal Comprehensive Metabolic Panel Result Value Ref Range Sodium 135 (L) 136 - 145 mmol/L Potassium 3.7 3.7 - 5.3 mmol/L Chloride 96 (L) 98 - 107 mmol/L CO2 26 20 - 31 mmol/L Anion Gap 13 9 - 16 mmol/L Glucose 127 (H) 74 - 99 mg/dL BUN 10 8 - 23 mg/dL Creatinine 1.0 0.7 - 1.2 mg/dL Est, Glom Filt Rate 61 >60 mL/min/1.73m2 Calcium 8.5 (L) 8.6 - 10.4 mg/dL Total Protein 7.4 6.6 - 8.7 g/dL Albumin 4.0 3.5 - 5.2 g/dL Total Bilirubin 0.4 0.0 - 1.2 mg/dL Alkaline Phosphatase 102 35 - 104 U/L ALT 14 10 - 35 U/L AST 36 (H) 10 - 35 U/L Troponin Now and Q 1 Hour Result Value Ref Range Troponin, High Sensitivity 9 0 - 14 ng/L Magnesium Result Value Ref Range Magnesium 1.3 (L) 1.6 - 2.4 mg/dL Procalcitonin Result Value Ref Range Procalcitonin 1.48 (H) 0.00 - 0.09 ng/mL Troponin Result Value Ref Range Troponin, High Sensitivity 22 (H) 0 - 14 ng/L Troponin Result Value Ref Range Troponin, High Sensitivity 25 (H) 0 - 14 ng/L Lactic Acid Result Value Ref Range Lactic Acid 1.1 0.5 - 2.2 mmol/L Urinalysis with Microscopic Result Value Ref Range Color, UA Yellow Yellow Turbidity UA Clear Clear Glucose, Ur NEGATIVE NEGATIVE mg/dL Bilirubin, Urine NEGATIVE NEGATIVE Ketones, Urine NEGATIVE NEGATIVE mg/dL Specific [place], UA 1.016 1.000 - 1.030 Urine Hgb NEGATIVE NEGATIVE pH, Urine 7.0 5.0 - 8.0 Protein, UA 2+ (A) NEGATIVE mg/dL Urobilinogen, Urine Normal 0.0 - 1.0 EU/dL Nitrite, Urine NEGATIVE NEGATIVE Leukocyte Esterase, Urine TRACE (A) NEGATIVE WBC, UA 3 to 5 (A) 0 TO 5 /HPF RBC, UA 0 TO 2 0 TO 2 /HPF Casts UA 6 TO 9 (A) None /LPF Epithelial Cells, UA 3 to 5 /HPF Bacteria, UA None None Basic Metabolic Panel w/ Reflex to MG Result Value Ref Range Sodium 136 136 - 145 mmol/L Potassium 3.8 3.7 - 5.3 mmol/L Chloride 103 98 - 107 mmol/L CO2 22 20 - 31 mmol/L Anion Gap 11 9 - 16 mmol/L Glucose 225 (H) 74 - 99 mg/dL BUN 14 8 - 23 mg/dL Creatinine 0.9 0.7 - 1.2 mg/dL Est, Glom Filt Rate 69 >60 mL/min/1.73m2 Calcium 8.1 (L) 8.6 - 10.4 mg/dL CBC with Auto Differential Result Value Ref Range WBC 18.6 (H) 3.5 - 11.0 k/uL RBC 4.17 4.0 - 5.2 m/uL Hemoglobin 12.0 12.0 - 16.0 g/dL Hematocrit 37.4 36 - 46 % MCV 89.5 80 - 100 fL MCH 28.7 26 - 34 pg MCHC 32.0 31 - 37 g/dL RDW 14.8 11.5 - 14.9 % Platelets 218 150 - 450 k/uL MPV 9.0 6.0 - 12.0 fL Neutrophils % 96 (H) 36 - 66 % Lymphocytes % 1 (L) 24 - 44 % Monocytes % 3 1 - 7 % Eosinophils % 0 0 - 4 % Basophils % 0 0 - 2 % Neutrophils Absolute 17.85 (H) 1.3 - 9.1 k/uL Lymphocytes Absolute 0.19 (L) 1.0 - 4.8 k/uL Monocytes Absolute 0.56 0.1 - 1.3 k/uL Eosinophils Absolute 0.00 0.0 - 0.4 k/uL Basophils Absolute 0.00 0.0 - 0.2 k/uL Morphology Normal Basic Metabolic Panel w/ Reflex to MG Result Value Ref Range Sodium 146 (H) 136 - 145 mmol/L Potassium 4.5 3.7 - 5.3 mmol/L Chloride 111 (H) 98 - 107 mmol/L CO2 28 20 - 31 mmol/L Anion Gap 7 (L) 9 - 16 mmol/L Glucose 162 (H) 74 - 99 mg/dL BUN 8 8 - 23 mg/dL Creatinine 0.6 (L) 0.7 - 1.2 mg/dL Est, Glom Filt Rate >90 >60 mL/min/1.73m2 Calcium 8.2 (L) 8.6 - 10.4 mg/dL CBC with Auto Differential Result Value Ref Range WBC 17.7 (H) 3.5 - 11.0 k/uL RBC 3.94 (L) 4.0 - 5.2 m/uL Hemoglobin 11.2 (L) 12.0 - 16.0 g/dL Hematocrit 35.2 (L) 36 - 46 % MCV 89.4 80 - 100 fL MCH 28.4 26 - 34 pg MCHC 31.8 31 - 37 g/dL RDW 15.1 (H) 11.5 - 14.9 % Platelets 177 150 - 450 k/uL MPV 9.2 6.0 - 12.0 fL Neutrophils % 93 (H) 36 - 66 % Lymphocytes % 4 (L) 24 - 44 % Monocytes % 2 1 - 7 % Eosinophils % 0 0 - 4 % Basophils % 0 0 - 2 % Bands 1 0 - 10 % Neutrophils Absolute 16.46 (H) 1.3 - 9.1 k/uL Lymphocytes Absolute 0.71 (L) 1.0 - 4.8 k/uL Monocytes Absolute 0.35 0.1 - 1.3 k/uL Eosinophils Absolute 0.00 0.0 - 0.4 k/uL Basophils Absolute 0.00 0.0 - 0.2 k/uL Absolute Bands 0.18 0.0 - 1.0 k/uL Morphology ANISOCYTOSIS PRESENT Morphology HYPOCHROMIA PRESENT Troponin Result Value Ref Range Troponin, High Sensitivity 19 (H) 0 - 14 ng/L Procalcitonin Result Value Ref Range Procalcitonin 0.92 (H) 0.00 - 0.09 ng/mL Basic Metabolic Panel w/ Reflex to MG Result Value Ref Range Sodium 143 136 - 145 mmol/L Potassium 4.2 3.7 - 5.3 mmol/L Chloride 109 (H) 98 - 107 mmol/L CO2 26 20 - 31 mmol/L Anion Gap 8 (L) 9 - 16 mmol/L Glucose 152 (H) 74 - 99 mg/dL BUN 8 8 - 23 mg/dL Creatinine 0.6 (L) 0.7 - 1.2 mg/dL Est, Glom Filt Rate >90 >60 mL/min/1.73m2 Calcium 8.3 (L) 8.6 - 10.4 mg/dL CBC with Auto Differential Result Value Ref Range WBC 14.0 (H) 3.5 - 11.0 k/uL RBC 3.92 (L) 4.0 - 5.2 m/uL Hemoglobin 11.3 (L) 12.0 - 16.0 g/dL Hematocrit 35.0 (L) 36 - 46 % MCV 89.2 80 - 100 fL MCH 28.8 26 - 34 pg MCHC 32.3 31 - 37 g/dL RDW 14.8 11.5 - 14.9 % Platelets 182 150 - 450 k/uL MPV 9.3 6.0 - 12.0 fL Neutrophils % 91 (H) 36 - 66 % Lymphocytes % 6 (L) 24 - 44 % Monocytes % 3 1 - 7 % Eosinophils % 0 0 - 4 % Basophils % 0 0 - 2 % Neutrophils Absolute 12.74 (H) 1.3 - 9.1 k/uL Lymphocytes Absolute 0.84 (L) 1.0 - 4.8 k/uL Monocytes Absolute 0.42 0.1 - 1.3 k/uL Eosinophils Absolute 0.00 0.0 - 0.4 k/uL Basophils Absolute 0.00 0.0 - 0.2 k/uL Morphology ANISOCYTOSIS PRESENT Brain Natriuretic Peptide Result Value Ref Range NT Pro-BNP 1,456 (H) 0 - 300 pg/mL POC Glucose Fingerstick Result Value Ref Range POC Glucose 169 (H) 65 - 105 mg/dL POC Glucose Fingerstick Result Value Ref Range POC Glucose 194 (H) 65 - 105 mg/dL POC Glucose Fingerstick Result Value Ref Range POC Glucose 159 (H) 65 - 105 mg/dL POC Glucose Fingerstick Result Value Ref Range POC Glucose 222 (H) 65 - 105 mg/dL POC Glucose Fingerstick Result Value Ref Range POC Glucose 191 (H) 65 - 105 mg/dL POC Glucose Fingerstick Result Value Ref Range POC Glucose 227 (H) 65 - 105 mg/dL POC Glucose Fingerstick Result Value Ref Range POC Glucose 177 (H) 65 - 105 mg/dL POC Glucose Fingerstick Result Value Ref Range POC Glucose 144 (H) 65 - 105 mg/dL POC Glucose Fingerstick Result Value Ref Range POC Glucose 239 (H) 65 - 105 mg/dL POC Glucose Fingerstick Result Value Ref Range POC Glucose 191 (H) 65 - 105 mg/dL POC Glucose Fingerstick Result Value Ref Range POC Glucose 188 (H) 65 - 105 mg/dL POC Glucose Fingerstick Result Value Ref Range POC Glucose 196 (H) 65 - 105 mg/dL EKG 12 Lead Result Value Ref Range Ventricular Rate 97 BPM Atrial Rate 97 BPM P-R Interval 122 ms QRS Duration 88 ms Q-T Interval 320 ms QTc Calculation (Bazett) 406 ms P [place] 84 degrees R [place] 57 degrees T [place] -119 degrees EKG 12 Lead Result Value Ref Range Ventricular Rate 54 BPM Atrial Rate 54 BPM P-R Interval 114 ms QRS Duration 82 ms Q-T Interval 392 ms QTc Calculation (Bazett) 371 ms P [place] 64 degrees R [place] 44 degrees T [place] -91 degrees EKG 12 Lead Result Value Ref Range Ventricular Rate 60 BPM Atrial Rate 60 BPM P-R Interval 112 ms QRS Duration 84 ms Q-T Interval 400 ms QTc Calculation (Bazett) 400 ms P [place] 29 degrees R [place] 46 degrees T [place] -107 degrees Echo (TTE) complete (PRN contrast/bubble/strain/3D) Result Value Ref Range LA Minor [place] 5.9 cm LA Major [place] 5.4 cm LA Area 2C 17.5 cm2 LA Area 4C 14.4 cm2 LA Volume MOD A2C 43 22 - 52 mL LA Volume MOD A4C 31 22 - 52 mL LA Volume BP 38 22 - 52 mL LA Diameter 3.1 cm RA Area 4C 11.6 cm2 RA Volume 23 ml AV Mean Gradient 8 mmHg AV VTI 40.3 cm AV Mean Velocity 1.4 m/s AV Peak Velocity 2.0 m/s AV Peak Gradient 16 mmHg AV Area by VTI 1.8 cm2 AV Area by Peak Velocity 2.0 cm2 Aortic Root 3.0 cm IVSd 0.5 (A) 0.6 - 0.9 cm LVIDd 5.4 (A) 3.9 - 5.3 cm LVIDs 4.0 cm LVOT Diameter 1.9 cm LVOT Mean Gradient 4 mmHg LVOT VTI 26.1 cm LVOT Peak Velocity 1.4 m/s LVOT Peak Gradient 8 mmHg LVPWd 0.6 0.6 - 0.9 cm LV E' Lateral Velocity 6.74 cm/s LV E' Septal Velocity 7.62 cm/s LVOT Area 2.8 cm2 LVOT SV 74.0 ml MV E Wave Deceleration Time 165.0 ms MV A Velocity 0.94 m/s MV E Velocity 1.15 m/s PV Max Velocity 1.5 m/s PV Peak Gradient 8 mmHg RV Free Wall Peak S' 13.4 cm/s TAPSE 2.2 1.7 cm TR Max Velocity 3.38 m/s TR Peak Gradient 46 mmHg Body Surface Area 1.47 m2 Fractional Shortening 2D 26 28 - 44 % LVIDd Index 3.70 cm/m2 LVIDs Index 2.74 cm/m2 LV RWT Ratio 0.22 LV Mass 2D 98.1 67 - 162 g LV Mass 2D Index 67.2 43 - 95 g/m2 MV E/A 1.22 E/E' Ratio (Averaged) 16.08 E/E' Lateral 17.06 E/E' Septal 15.09 LA Volume Index BP 26 16 - 34 ml/m2 LVOT Stroke Volume Index 50.7 mL/m2 LA Volume Index MOD A2C 29 16 - 34 ml/m2 LA Volume Index MOD A4C 21 16 - 34 ml/m2 LA Size Index 2.12 cm/m2 LA/AO Root Ratio 1.03 RA Volume Index A4C 16 mL/m2 Ao Root Index 2.05 cm/m2 AV Velocity Ratio 0.70 LVOT:AV VTI Index 0.65 LIBAN/BSA VTI 1.2 cm2/m2 LIBAN/BSA Peak Velocity 1.4 cm2/m2 EF Physician 50 % Est. RA Pressure 8 mmHg RVSP 54 mmHg PASP 54 mmHg IMAGING DATA: XR CHEST PORTABLE Result Date: 08/28/2024 EXAMINATION: ONE XRAY VIEW OF THE CHEST 08/28/2024 12:53 pm COMPARISON: None. HISTORY: ORDERING SYSTEM PROVIDED HISTORY: cough TECHNOLOGIST PROVIDED HISTORY: cough Reason for Exam: Cough/pt recent diagnosis of pneumonia FINDINGS: There is apparent scarring in the right upper lobe. Mild infiltrates are noted in the the lower lobes lungs otherwise clear. The heart and mediastinal structures appear normal. Bony structures appear normal. 1. Mild infiltrates in the lower lobes. 2. Apparent scarring in the right upper lobe. IMPRESSION: Primary Problem Community acquired pneumonia Active Hospital Problems Diagnosis Date Noted Influenza A [J10.1] 08/29/2024 Chest pain [R07.9] 08/29/2024 Community acquired pneumonia [J18.9] 08/28/2024 Influenza infection COPD exacerbation History of lung nodule increasing size, FDG avid History of peripancreatic lymph node FDG avid status post biopsy, reactive in nature Slightly elevated CEA RECOMMENDATIONS: I reviewed the labs/imaging available to me,outside records and discussed with the patient.I explained to the patient the nature of this problem. I explained the significance of these abnormalities and possible etiology and management options Reviewed records from outside facility Reviewed records from Care Everywhere Patient not a good historian and does not remember much of the testing done regarding the positive PET scan and biopsy. Apparently patient has had some workup including a PET scan which showed FDG avid lung nodule and peripancreatic lymph node. Patient underwent EGD with EUS and biopsy of the pancreatic lymph node was negative. Recommend continued surveillance for FDG avid lung nodule and FDG avid peripancreatic lymph node. This can be done closer to patient's home. Patient already has establish care in [facility] Respiratory status much improved Continue management of influenza and COPD exacerbation at this point. Discussed with patient and Nurse. Thank you for asking us to see this patient. Sofi Em MD This note is created with the assistance of a speech recognition program. While intending to generate a document that actually reflects the content of the visit, the document can still have some errors including those of syntax and sound a like substitutions which may escape proof reading. It such instances, actual meaning can be extrapolated by contextual diversion. Pulmonary Progress Note [facility] Patient - Kym Briscoe, Age - 68 y.o. - 1955 [id number] Date of Admission - 08/28/2024 12:41 PM Consulting Service/Physician Consulting - Loco Trinh MD Primary Care Physician - Tomi Sandra II, MD SUBJECTIVE Patient appears to be in good spirits OBJECTIVE VITALS height is 1.499 m (4' 11 ) and weight is 52.2 kg (115 lb). Her axillary temperature is 97.8 F (36.6 C). Her blood pressure is 153/68 (abnormal) and her pulse is 62. Her respiration is 16 and oxygen saturation is 100%. Body mass index is 23.23 kg/m . Temperature Range: Temp: 97.8 F (36.6 C) Temp Av.9 F (36.6 C) Min: 97.5 F (36.4 C) Max: 98.1 F (36.7 C) BP Range: Systolic (24hrs), Av , Min:110 , Max:165 Diastolic (24hrs), Av, Min:49, Max:88 Pulse Range: Pulse Av.5 Min: 55 Max: 128 Respiration Range: Resp Av.3 Min: 13 Max: 27 Current Pulse Ox:: SpO2: 100 % 24HR Pulse Ox Range: SpO2 Av % Min: 82 % Max: 100 % Oxygen Amount and Delivery: O2 Flow Rate (L/min): 2 L/min Wt Readings from Last 3 Encounters: 08/28/24 52.2 kg (115 lb) 07/26/24 52.6 kg (116 lb) 05/17/24 54.4 kg (120 lb) I/O (24 Hours) Intake/Output Summary (Last 24 hours) at 08/31/2024 1551 Last data filed at 08/31/2024 1300 Gross per 24 hour Intake 2240.97 ml Output 1500 ml Net 740.97 ml EXAM General Appearance Awake, alert, oriented, in no acute distress HEENT - normocephalic, atraumatic. Neck - Supple, trachea midline Lungs -coarse breath sounds no crackles rales or wheezes Heart Exam:PMI normal. No lifts, heaves, or thrills. RRR. No murmurs, clicks, gallops, or rubs Abdomen Exam: Abdomen soft, non-tender. BS normal. Extremity Exam: No signs of cyanosis MEDS isosorbide mononitrate 30 mg Oral Daily losartan 25 mg Oral Daily methylPREDNISolone 40 mg IntraVENous Q8H oseltamivir 75 mg Oral BID atorvastatin 40 mg Oral Nightly metoprolol succinate 50 mg Oral Daily PARoxetine 20 mg Oral Daily budesonide-formoterol 2 puff Inhalation BID RT And tiotropium 2 puff Inhalation Daily RT azithromycin 500 mg IntraVENous Q24H cefTRIAXone (ROCEPHIN) IV 1,000 mg IntraVENous Q24H sodium chloride flush 5-40 mL IntraVENous 2 times per day heparin (porcine) 5,000 Units SubCUTAneous 3 times per day albuterol 2.5 mg Nebulization 4x Daily RT insulin lispro 0-4 Units SubCUTAneous 4x Daily AC & HS donepezil 10 mg Oral Nightly mirtazapine 30 mg Oral Nightly nicotine 1 patch TransDERmal Daily sodium chloride dextrose sulfur hexafluoride microspheres, HYDROcodone-acetaminophen, benzonatate, diazePAM, OLANZapine zydis, sodium chloride flush, sodium chloride, potassium chloride OR potassium alternative oral replacement OR potassium chloride, magnesium sulfate, ondansetron OR ondansetron, polyethylene glycol, acetaminophen OR acetaminophen, glucose, dextrose bolus OR dextrose bolus, glucagon (rDNA), dextrose LABS CBC Recent Labs 08/31/24 0339 WBC 14.0* HGB 11.3* HCT 35.0* MCV 89.2 PLT 182 BMP: Lab Results Component Value Date/Time NA 143 08/31/2024 03:39 AM K 4.2 08/31/2024 03:39 AM CL 109 08/31/2024 03:39 AM CO2 26 08/31/2024 03:39 AM BUN 8 08/31/2024 03:39 AM CREATININE 0.6 08/31/2024 03:39 AM CALCIUM 8.3 08/31/2024 03:39 AM LABGLOM >90 08/31/2024 03:39 AM ABGs:No results found for: PHART , PO2ART , DRI4LUU No results found for: IFIO2 , MODE , SETTIDVOL , SETPEEP Ionized Calcium: No components found for: IONCA Magnesium: Lab Results Component Value Date/Time MG 1.3 08/28/2024 01:26 PM Phosphorus: No results found for: PHOS LIVER PROFILE No results for input(s): AST , ALT , LIPASE , AMYLASE , BILIDIR , BILITOT , ALKPHOS in the last 72 hours. Invalid input(s): ALB INR No results for input(s): INR in the last 72 hours. PTT No results found for: APTT RADIOLOGY (See actual reports for details) ASSESSMENT/PLAN Patient Active Problem List Diagnosis Abnormal gastrointestinal PET scan Community acquired pneumonia Influenza A Chest pain Influenza A, also has elevated procalcitonin level but no definitive consolidation on x-ray Acute exacerbation of COPD secondary to viral illness Acute hypoxemic respiratory failure not normally on oxygen, was offered by primary care [employer] in past per daughter but verbally declined due to smoking Hypotension-off Levophed now for 24 hours Lung nodules,, some are 4 mm, largest 14 mm in the left hilar region per CT report from July, followed by pulmonary in [place] Diabetes mellitus type 2 Dementia-seems to be quite severe Hypertension Dyslipidemia Tobacco dependence still actively smoking Full code Chest x-ray revealed bibasilar findings which could be either atelectasis versus infiltrate. Patient on Rocephin and Zithromax On Symbicort Spiriva DVT prophylaxis with subcu heparin Patient appears to be stable up to go to progressive unit. Continue with steroids at 40 every 8 My concern is that patient will continue to smoke when she is discharged from the hospital. KWABENA EDDY (Child) [phone] Patient's daughter was updated [facility] Physical Therapy Treatment Date: 08/31/24 Patient Name: Kym Briscoe Room: Account: [id number] : 1955 (68 y.o.) Gender: female Discharge Recommendations: Discharge Recommendations: Patient would benefit from continued therapy after discharge, Continue to assess pending progress PT D/C Equipment Equipment Needed: (CTA as pt progresses through POC) General Patient assessed for rehabilitation services?: Yes Additional Pertinent Hx: Per H and P 08/28/24: The patient is a 68 y.o. Non- / non female who presents withShortness of Breath, Fatigue, Headache, and Cough and she is admitted to the hospital for the management of COPD exacerbation secondary to influenza. PMH COPD, type 2 diabetes, hypertension, dementia. No reported cardiac history Patient has cough, productive sputum, shortness of breath for past few days. Worse with both ambulation and lying flat. No fevers or chills. Hypoxia on room air needing nasal cannula. Uses breathing treatments not oxygen at home. Patient was transferred from [facility] for multifocal pneumonia treatment as her is being treated here for some time. Wants to be near her who she reports is dying. Her granddaughter decreased appetite and oral intake for the last day and believes that she has had some low blood sugar readings. Does have dementia but is an orientated and appropriate responses normally baseline. Response To Previous Treatment: Patient with no complaints from previous session. Family/Caregiver Present: No Referring Practitioner: Dr. Abhishek Tavares Referral Date : 08/28/24 Diagnosis: Influenza A, COPD exacerbation, pneumonia Follows Commands: Within Functional Limits Other (Comment): OK per nurse iDaz to proceed with PT evaluation Past Medical History: has a past medical history of COPD (chronic obstructive pulmonary disease) (HCC), Diabetes mellitus (HCC), Emphysema lung (HCC), Hypertension, and UTI (urinary tract infection). Past Surgical History: has a past surgical history that includes section and Upper gastrointestinal endoscopy (N/A, 05/17/2024). Restrictions Restrictions/Precautions Restrictions/Precautions: Isolation, Fall Risk, Bed Alarm Activity Level: Up with Assist Required Braces or Orthoses?: No Implants Present? : (pt denies) Subjective Subjective Subjective: Pt in bed, agreeable to ambulation. States afterward that it felt good to walk. General General Comments: CARRI BARAHONA'd tx, notified afterward of Pt desatting during tx. Pain Pre-Pain: 0 Post-Pain: 0 Objective Vitals Pulse: (!) 110 (peak, after longer walk.) SpO2: (!) 82 % (lowest reading during session, seated after longer walk. 1 min. seated rest w/pursed lip breathing to recover >90%.) O2 Device: Nasal cannula Comment: 2L/min. supplemental O2. Transfers Transfers Sit to Stand: Stand by assistance (Cues for hand placement) Stand to Sit: Stand by assistance Stand Pivot Transfers: Stand by assistance Comment: RW; cues for hand placement Mobility Ambulation Surface: Level tile Device: Rolling Walker Other Apparatus: O2 (2L/min supp. O2) Assistance: Contact guard assistance Quality of Gait: Shortened steps, but steady w/RW. Gait Deviations: Decreased step length, Decreased step height Distance: 30' Comments: See vitals. Ambulation 2 Surface - 2: level tile Device 2: Rolling Walker Other Apparatus 2: O2 (2L/min supp. O2) Assistance 2: Contact guard assistance Quality of Gait 2: As above. Gait Deviations: Decreased step length, Decreased step height Distance: 10' Comments: Pt desatted to 89%, returned WNL w/standing rest break & repeated cue for pursed lip breathing. Bed Mobility Bed mobility Supine to Sit: Supervision (+ 1 pillow) Sit to Supine: Supervision (+ 2 pillows, bed flat.) Scooting: Supervision (Hips to EOB; (bed flat) aligning to COB.) Bed Mobility Comments: HOB ~30 unless noted otherwise, rails not used. Balance Balance Posture: Good Sitting - Static: Good (EOB) Sitting - Dynamic: Good (EOB) Standing - Static: Fair (RW) Standing - Dynamic: Fair, - (RW) PT Exercises A/AROM Exercises: Seated EOB ankle pumps, 10x each, Supervision.. Functional Mobility Circuit Training: Functional transfers during tx. Static Sitting Balance Exercises: Unsupported sitting EOB >20 minutes total, Supervision. Static Standing Balance Exercises: Static standing, ~2 min. w/RW. SBA/Supervision. Breathing Techniques: Cues for pursed lip breathing for O2 recovery Assessment Assessment Clinical Presentation: Friendly & cheerful. Discharge Recommendations: Patient would benefit from continued therapy after discharge, Continue to assess pending progress Activity Tolerance Activity Tolerance: Patient limited by endurance, Patient tolerated treatment well Functional Outcome Measures [facility] Basic Mobility - Inpatient How much help is needed turning from your back to your side while in a flat bed without using bedrails?: A Little (Clinical judgment) How much help is needed moving from lying on your back to sitting on the side of a flat bed without using bedrails?: A Little How much help is needed moving to and from a bed to a chair?: A Little How much help is needed standing up from a chair using your arms?: A Little How much help is needed walking in hospital room?: A Little How much help is needed climbing 3-5 steps with a railing?: A Little (Clinical judgment) [facility] Inpatient Mobility Raw Score : 18 [facility] Inpatient T-Scale Score : 43.63 Mobility Inpatient [facility] 0-100% Score: 46.58 Mobility Inpatient [facility] G-Code Modifier : CK Goals Patient Goals Patient Goals : to be able to go home Short Term Goals Time Frame for Short Term Goals: 4-5 visits Short Term Goal 1: Pt to complete sit to stand transfers with supervision assist, stand pivot with supervision assist and least restrictive AD Short Term Goal 2: Pt to ambulate with least restrictive AD for 50 feet with SBA in order to get to/from bathroom Short Term Goal 3: Pt to negotiate 2 steps with bilateral rails SBA Short Term Goal 4: Pt to complete bed mobility sit<>sup independent without rails, flat bed Short Term Goal 5: Pt to improve dynamic standing balance to F+ to reduce fall risk Plan Physical Therapy Plan General Plan: (4-5 visits) Current Treatment Recommendations: Strengthening, Balance training, Functional mobility training, Transfer training, Gait training, Stair training, Neuromuscular re-education, Therapeutic activities Safety Devices Type of Devices: Bed alarm in place, Call light within reach, Left in bed, Nurse notified, All fall risk precautions in place, Gait belt, Patient at risk for falls (Deferred heel elevation.) PT Individual Minutes Time In: 0916 Time Out: 0945 Minutes: 29 Date: 08/31/2024 Patient name: Kym Briscoe Date of admission: 08/28/2024 12:41 PM Date of : 1955 PCP: Tomi Sandra II, MD Reason for Admission: Influenza A [J10.1] COPD exacerbation (HCC) [J44.1] Pneumonia due to infectious agent [J18.9] Community acquired pneumonia, unspecified laterality [J18.9] Cardiology Follow-Up: Abnormal ECG abnormal troponin Referring physician: Dr Rusty Sibley Impression Admission 08/28/2024 with increasing shortness of breath, productive cough, marked leukocytosis, viral study positive for influenza A Acute hypoxic respiratory failure Borderline abnormal high-sensitivity troponin Abnormal ECG marked ST-T abnormalities inferior leads and precordial leads Mildly dilated LV, ejection fraction 50 to 55% Moderate pulmonary hypertension RVSP 54 mmHg Diabetes mellitus Hyperlipidemia Dementia Current smoker History of present illness 68-year-old female with a past medical history of COPD, history of smoking type 2 diabetes, hypertension, dementia got hospitalized 08/28/2024 with increasing shortness of breath, productive cough. Chest x-ray on admission showed mild infiltrates. She also had a marked leukocytosis and viral study positive for influenza A. ECG showed marked ST-T abnormalities in the inferior leads and precordial leads. Lab work on admission High-sensitivity troponin 9, 25 Sodium 135 potassium 3.7, creatinine 1.0, magnesium 1.3, glucose 127 and 225 WBC 19.0 hemoglobin 12.9 platelets 198 Influenza A detected Current evaluation Patient seen and examined, medications and labs checked discussed with the patient's nurse She had tachycardia last night heart rate up to 125 She also had a chest heaviness and shortness of breath during transfer to [facility] She also became hypoxic oxygen saturation 85% while on 2 L At present she is feeling better She was resting in upright position she was on oxygen by nasal cannula She had her breakfast Neck veins were distended chest expansion very poor diminished breath sound both side Bilateral basal crackles Heart sounds were distant No peripheral edema Repeat ECG showed improvement in the ST-T abnormalities Blood pressure 152/67, heart rate 90, oxygen saturation 92 per on 2 L Sodium 143 potassium 4.2 BUN 8 creatinine 0.6 glucose 152 calcium 8.3 proBNP 1456 WBC 14.0 on admission 19.0, hemoglobin 11.3, platelets 182 Investigation workup 2D echo 08/29/2024 Mildly dilated left ventricle ejection fraction 50 to 55% normal wall thickness and wall motions Mild tricuspid regurgitation moderate pulmonary hypertension RVSP 54 mmHg Dilated IVC ECG 08/31/2024 Sinus rhythm heart rate 60 nonspecific T wave changes inferior and precordial leads significant improvement in comparison to 08/30/2024 ECG 08/30/2024 Sinus bradycardia heart rate 54, ST-T abnormalities inferior leads and precordial leads ECG 08/29/2024 Sinus rhythm, marked ST-T abnormalities ECG 08/28/2024 Sinus rhythm heart rate 97, right atrial enlargement Marked ST-T abnormalities consider inferior ischemia ST-T abnormalities precordial leads consider anterolateral ischemia Chest x-ray 08/28/2024 Mild infiltrate in the lower lobe Apparently scarring in the right upper lobe Medications: Scheduled Meds: furosemide 40 mg IntraVENous Once oseltamivir 75 mg Oral BID atorvastatin 40 mg Oral Nightly metoprolol succinate 50 mg Oral Daily PARoxetine 20 mg Oral Daily budesonide-formoterol 2 puff Inhalation BID RT And tiotropium 2 puff Inhalation Daily RT azithromycin 500 mg IntraVENous Q24H cefTRIAXone (ROCEPHIN) IV 1,000 mg IntraVENous Q24H methylPREDNISolone 40 mg IntraVENous Q6H sodium chloride flush 5-40 mL IntraVENous 2 times per day heparin (porcine) 5,000 Units SubCUTAneous 3 times per day albuterol 2.5 mg Nebulization 4x Daily RT insulin lispro 0-4 Units SubCUTAneous 4x Daily AC & HS donepezil 10 mg Oral Nightly mirtazapine 30 mg Oral Nightly nicotine 1 patch TransDERmal Daily Continuous Infusions: sodium chloride 75 mL/hr at 08/31/24 0233 sodium chloride dextrose CBC: Recent Labs 08/29/245 08/30/24 0618 08/31/24 0339 WBC 18.6* 17.7* 14.0* HGB 12.0 11.2* 11.3* PLT 218 177 182 BMP: Recent Labs 08/29/245 08/30/24 0618 08/31/24 0339 NA 136 146* 143 K 3.8 4.5 4.2 CL 103 111* 109* CO2 22 28 26 BUN 14 8 8 CREATININE 0.9 0.6* 0.6* GLUCOSE 225* 162* 152* Hepatic: Recent Labs 08/28/24 1326 AST 36* ALT 14 BILITOT 0.4 ALKPHOS 102 Troponin: No results for input(s): TROPONINI in the last 72 hours. BNP: No results for input(s): BNP in the last 72 hours. Lipids: No results for input(s): CHOL , HDL in the last 72 hours. Invalid input(s): LDLCALCU INR: No results for input(s): INR in the last 72 hours. Objective: Vitals: BP (!) 152/67 Pulse 91 Temp 97.8 F (36.6 C) (Axillary) Resp 17 Ht 1.499 m (4' 11 ) Wt 52.2 kg (115 lb) SpO2 94% BMI 23.23 kg/m General appearance: alert and cooperative with exam HEENT: Head: Normal, normocephalic, atraumatic. Neck: supple, symmetrical, trachea midline and JVD +++ Lungs: Poor chest expansion diminished breath sounds bilateral basal crackles Heart: regular rate and rhythm Abdomen: Obese soft bowel sounds present Extremities: Homans sign is negative, no sign of DVT Neurologic: Mental status: Awake communicating well EKG: Sinus rhythm, marked ST-T abnormalities inferior leads and precordial leads. ECHO: ordered, but not yet obtained. Ejection fraction: 50 to 55%, mildly dilated LV normal LV wall thickness no obvious wall motion abnormality noted Normal IVC diameter and respiratory variation Stress Test: not obtained. Cardiac Angiography: not obtained. Assessment / Acute Cardiac Problems: Admission with acute exacerbation of COPD, influenza A detected Acute hypoxic respiratory failure Borderline abnormal high-sensitivity troponin Abnormal ECG marked ST-T abnormalities in multiple leads inferior leads and precordial leads ECG 08/30/2024 sinus bradycardia, ST-T abnormalities inferior and precordial leads, artifacts Congestive heart failure elevated proBNP 1456 Low normal LV systolic function ejection fraction 50 to 55% Moderate pulmonary hypertension right ventricular systolic pressure 54 mmHg Patient Active Problem List: Abnormal gastrointestinal PET scan Community acquired pneumonia Influenza A Chest pain Plan of Treatment: Medications reviewed 1: COPD exacerbation acute hypoxic respiratory failure, influenza A positive patient is on Tamiflu, Zithromax and Rocephin, bronchodilators and steroids Nicotine patch 2: Borderline abnormal high-sensitivity troponin and abnormal ECG 2D echo showed normal wall motion ejection fraction 50 to 55% Continue current dose of Lipitor 40 mg a day, metoprolol 50 mg a day 3: Congestive heart failure elevated proBNP 14,556 jugular venous distention++, pulmonary hypertension Give Lasix 40 mg IV today Add Imdur 30 mg a day and losartan 25 mg a day will assess again most likely she is going to need Bumex 2 mg 4: Multiple cardiac risk factor continue current dose of Lipitor 40 mg, add aspirin 81 mg Continue current dose sub cu heparin 5000 units 3 times a day Continue ECG monitoring Dr. Ferreira rounded and wants 40mg IV lasix given once. Orders placed. [facility] PROGRESS NOTE 08/31/2024 8:01 AM Name: Kym Briscoe Acct: [id number] Room: IP Day: 3 Admit Date: 08/28/2024 12:41 PM PCP: Tomi Sandra II, MD Code Status: Full Code Subjective: C/C: Chief Complaint Patient presents with Shortness of Breath Fatigue Headache Cough Interval History Status: improved. Seen at bedside this morning. States that she is feeling well. Reports improvement of SOB, cough, and chest pain. O2 saturation at 99% on 2 L via nasal cannula. No increased work of breathing noted on exam. Patient continues on Solu-Medrol 40 mg every 6 hours and Tamiflu. Cardiology evaluated patient. Per recommendation continue patient on Lipitor, metoprolol, and heparin. BNP elevated at 1456 this morning. ECHO completed yesterday showing low normal left ventricular systolic function with an estimated EF of 50 to 55%. Per cardiology, 40 mg IV Lasix ordered for this morning. Patient also evaluated by heme-onc for suspicion of malignancy on previous PET scan. Per recommendation, continue to follow-up with Kelsi as outpatient. Brief History: The patient is a 68 y.o. Non- / non female who presents withShortness of Breath, Fatigue, Headache, and Cough and she is admitted to the hospital for the management of COPD exacerbation secondary to influenza. PMH COPD, type 2 diabetes, hypertension, dementia. No reported cardiac history Patient has cough, productive sputum, shortness of breath for past few days. Worse with both ambulation and lying flat. No fevers or chills. Hypoxia on room air needing nasal cannula. Uses breathing treatments not oxygen at home. Patient was transferred from [facility] for multifocal pneumonia treatment as her is being treated here for some time. Wants to be near her who she reports is dying. Her granddaughter decreased appetite and oral intake for the last day and believes that she has had some low blood sugar readings. Does have dementia but is an orientated and appropriate responses normally baseline. Allergies to codeine and contrast. Full code. Review of Systems: Review of Systems Constitutional: Negative for activity change and appetite change. Respiratory: Negative for chest tightness and shortness of breath. Cardiovascular: Negative for chest pain. Gastrointestinal: Negative for abdominal pain and constipation. Genitourinary: Negative for difficulty urinating. Medications: Allergies: Allergies Allergen Reactions Iodinated Contrast Media Itching Codeine Rash Current Meds: Scheduled Meds: oseltamivir 75 mg Oral BID atorvastatin 40 mg Oral Nightly metoprolol succinate 50 mg Oral Daily PARoxetine 20 mg Oral Daily budesonide-formoterol 2 puff Inhalation BID RT And tiotropium 2 puff Inhalation Daily RT azithromycin 500 mg IntraVENous Q24H cefTRIAXone (ROCEPHIN) IV 1,000 mg IntraVENous Q24H methylPREDNISolone 40 mg IntraVENous Q6H sodium chloride flush 5-40 mL IntraVENous 2 times per day heparin (porcine) 5,000 Units SubCUTAneous 3 times per day albuterol 2.5 mg Nebulization 4x Daily RT insulin lispro 0-4 Units SubCUTAneous 4x Daily AC & HS donepezil 10 mg Oral Nightly mirtazapine 30 mg Oral Nightly nicotine 1 patch TransDERmal Daily Continuous Infusions: sodium chloride 75 mL/hr at 08/31/24 0233 sodium chloride dextrose PRN Meds: sulfur hexafluoride microspheres, HYDROcodone-acetaminophen, benzonatate, diazePAM, OLANZapine zydis, sodium chloride flush, sodium chloride, potassium chloride OR potassium alternative oral replacement OR potassium chloride, magnesium sulfate, ondansetron OR ondansetron, polyethylene glycol, acetaminophen OR acetaminophen, glucose, dextrose bolus OR dextrose bolus, glucagon (rDNA), dextrose Data: Past Medical History: has a past medical history of COPD (chronic obstructive pulmonary disease) (HCC), Diabetes mellitus (HCC), Emphysema lung (HCC), Hypertension, and UTI (urinary tract infection). Social History: reports that she has been smoking cigarettes. She started smoking about 67 years ago. She has a 134.2 pack-year smoking history. She has never used smokeless tobacco. She reports current alcohol use. She reports that she does not use drugs. Family History: Family History Problem Relation Age of Onset Colon Cancer Neg Hx Vitals: BP (!) 125/49 Pulse 67 Temp 97.5 F (36.4 C) (Oral) Resp 13 Ht 1.499 m (4' 11 ) Wt 52.2 kg (115 lb) SpO2 100% BMI 23.23 kg/m Temp (24hrs), Av.9 F (36.6 C), Min:97.5 F (36.4 C), Max:98 F (36.7 C) Recent Labs 08/30/24 0716 08/30/24 1057 08/30/24 1607 08/30/24 2212 POCGLU 144* 239* 191* 188* I/O(24Hr): Intake/Output Summary (Last 24 hours) at 08/31/2024 0801 Last data filed at 08/31/2024 0505 Gross per 24 hour Intake 2240.97 ml Output 800 ml Net 1440.97 ml Labs: @[email or web address]@ Lab Results Component Value Date/Time SPECIAL Site: Sputum 08/29/2024 02:09 PM Lab Results Component Value Date/Time CULTURE NORMAL RESPIRATORY DARA LIGHT GROWTH 08/29/2024 02:09 PM @[email or web address]@ Radiology: XR CHEST PORTABLE Result Date: 08/28/2024 EXAMINATION: ONE XRAY VIEW OF THE CHEST 08/28/2024 12:53 pm COMPARISON: None. HISTORY: ORDERING SYSTEM PROVIDED HISTORY: cough TECHNOLOGIST PROVIDED HISTORY: cough Reason for Exam: Cough/pt recent diagnosis of pneumonia FINDINGS: There is apparent scarring in the right upper lobe. Mild infiltrates are noted in the the lower lobes lungs otherwise clear. The heart and mediastinal structures appear normal. Bony structures appear normal. 1. Mild infiltrates in the lower lobes. 2. Apparent scarring in the right upper lobe. Physical Examination: Physical Exam Constitutional: Appearance: Normal appearance. Cardiovascular: Rate and Rhythm: Normal rate and regular rhythm. Pulses: Normal pulses. Pulmonary: Breath sounds: Wheezing (mild) present. Abdominal: General: There is distension. Palpations: Abdomen is soft. Musculoskeletal: Right lower leg: No edema. Left lower leg: No edema. Psychiatric: Comments: Concerned about loss of dentures Assessment: Primary Problem Community acquired pneumonia Active Hospital Problems Diagnosis Date Noted Influenza A [J10.1] 08/29/2024 Chest pain [R07.9] 08/29/2024 Community acquired pneumonia [J18.9] 08/28/2024 Plan: COPD exacerbation secondary to pneumonia versus other infectious etiology -Chest x-ray shows mild infiltrates in the lower lobes and apparent scarring in right lower lobe -Patient symptoms including significant shortness of breath, wheezing and cough. 74 O2 on room air, started on 4 L O2 nasal cannula with improvement. Not normally on oxygen -Adequate oxygen saturation on 2 L of oxygen via nasal cannula 08/31 -Positive influenza -Leukocytosis downtrending -Pro-Javy 1.48 on admission, 0.92 on 08/31 -Respiratory culture no significant pathogen seen -DuoNeb in ED -Solu-Medrol every 6 hours -Albuterol, Symbicort, Spiriva -Acapella device -Tamiflu -Azithromycin and ceftriaxone. Likely discontinue today 08/30/24 as cultures have no growth -Santo Hernandez for cough -Patient did spike a fever evening 08/29/24. Urine culture, blood culture obtained-negative for growth Elevated troponin, possibly secondary to CAD -Troponin 22-> 25-> 19 -BNP 1456 on 08/31 -EKG sinus rhythm -ECHO completed yesterday showing low normal left ventricular systolic function with an estimated EF of 50 to 55% -Cardiology consulted and following with patient, per recommendation continue patient on Lipitor, metoprolol, heparin - Lasix 40 mg IV one time ordered this morning Mildly prominent portacaval lymph nodes and pulmonary nodules suspicious for malignancy -Active smoker -Patient previously had CT abdomen pelvis with IV contrast 07/19/24 at outside facility showing suspicion for malignancy -PET scan showed FDG avid lung nodule and peripancreatic lymph node -EGD and EUS and biopsy of pancreatic lymph node negative -Has had follow-ups in [place] [facility]-onc consulted and following with patient, plan to continue workup as outpatient at [facility]. Type 2 diabetes -Glucose in ED 127 -POCT glucose checks -Hypoglycemia protocol -Low dose sliding scale Hypotensive episodes in patient with history of hypertension -Toprol-XL 100 mg home medication ordered as Toprol-XL 50 mg - held due to low BP -Losartan held for possible ERASMO. Creatinine 1.0 but previous 2023 0.74 and Cr Cl 40 ml/min -Hypotensive episode likely secondary to dehydration low oral intake on evening of 08/28/24 -Patient was transferred to ICU and needed midodrine which was discontinued as of noon 08/29/24 -May be stable for transfer out of ICU later this afternoon Hyperlipidemia -Continue home medication Lipitor Anxiety, Dementia -Continue home medications Valium, Paxil,Aricept -Zyprexa as needed for agitation. Pulling at her lines in the ED, needed multiple reminders to not do so. DVT prophylaxis: Heparin 5000 units 3 times daily GI prophylaxis: Not indicated at this time Diet: 5 Carb diet Code: Full Discharge planning: TBD Elissa Dougherty MD PGY I Transitional Year Resident 08/31/2024 8:01 AM To be discussed with attending Electronically signed by Elissa Dougherty MD Attending Physician Statement I have discussed the care of Kym Briscoe and I have examined the patient myself and taken ROS and HPI, including pertinent history and exam findings, with the resident. I have reviewed the iqbal elements of all parts of the encounter with the resident. I agree with the assessment, plan and orders as documented by the resident. Patient seen and examined, dose of Lasix ordered this morning by cardiology Cut down steroid s Dc fluids Continue abx Shipping Clerk/Admin got pt up to bedside commode. Pt noted to be SOB during transfer to commode. Pt HR increased to 125 BPM, & SPO2 85% while on 2L NC. Shipping Clerk/Admin increased flow rate to 4L. Spo2 now 97%. HR 83 BPM. Date: 08/30/2024 Patient name: Kym Briscoe Date of admission: 08/28/2024 12:41 PM Date of : 1955 PCP: Tomi Sandra II, MD Reason for Admission: Influenza A [J10.1] COPD exacerbation (HCC) [J44.1] Pneumonia due to infectious agent [J18.9] Community acquired pneumonia, unspecified laterality [J18.9] Cardiology Follow-Up: Abnormal ECG abnormal troponin Referring physician: Dr Rusty Sibley Impression Admission 08/28/2024 with increasing shortness of breath, productive cough, marked leukocytosis, viral study positive for influenza A Acute hypoxic respiratory failure Borderline abnormal high-sensitivity troponin Abnormal ECG marked ST-T abnormalities inferior leads and precordial leads Mildly dilated LV, ejection fraction 50 to 55% Moderate pulmonary hypertension RVSP 54 mmHg Diabetes mellitus Hyperlipidemia Dementia Current smoker History of present illness 68-year-old female with a past medical history of COPD, history of smoking type 2 diabetes, hypertension, dementia got hospitalized 08/28/2024 with increasing shortness of breath, productive cough. Chest x-ray on admission showed mild infiltrates. She also had a marked leukocytosis and viral study positive for influenza A. ECG showed marked ST-T abnormalities in the inferior leads and precordial leads. Lab work on admission High-sensitivity troponin 9, 25 Sodium 135 potassium 3.7, creatinine 1.0, magnesium 1.3, glucose 127 and 225 WBC 19.0 hemoglobin 12.9 platelets 198 Influenza A detected Current evaluation Patient seen and examined, medications and labs checked discussed with the patient's nurse Patient said she is okay She says she did not sleep well last night She denied any chest pain or palpitation She continued to have very poor chest expansion and bilateral wheezing ECG monitor sinus rhythm heart rate about 90 bpm Blood pressure 163/67 mmHg Oxygen saturation 98% Blood sugar 239 sodium 146 potassium 4.5 BUN 8 creatinine 0.6 WBC 17.7 hemoglobin 11.2 platelets 177 Investigation workup 2D echo 08/29/2024 Mildly dilated left ventricle ejection fraction 50 to 55% normal wall thickness and wall motions Mild tricuspid regurgitation moderate pulmonary hypertension RVSP 54 mmHg Dilated IVC ECG 08/29/2024 Sinus rhythm, marked ST-T abnormalities ECG 08/28/2024 Sinus rhythm heart rate 97, right atrial enlargement Marked ST-T abnormalities consider inferior ischemia ST-T abnormalities precordial leads consider anterolateral ischemia Chest x-ray 08/28/2024 Mild infiltrate in the lower lobe Apparently scarring in the right upper lobe Medications: Scheduled Meds: oseltamivir 75 mg Oral BID atorvastatin 40 mg Oral Nightly metoprolol succinate 50 mg Oral Daily PARoxetine 20 mg Oral Daily budesonide-formoterol 2 puff Inhalation BID RT And tiotropium 2 puff Inhalation Daily RT azithromycin 500 mg IntraVENous Q24H cefTRIAXone (ROCEPHIN) IV 1,000 mg IntraVENous Q24H methylPREDNISolone 40 mg IntraVENous Q6H sodium chloride flush 5-40 mL IntraVENous 2 times per day heparin (porcine) 5,000 Units SubCUTAneous 3 times per day albuterol 2.5 mg Nebulization 4x Daily RT insulin lispro 0-4 Units SubCUTAneous 4x Daily AC & HS donepezil 10 mg Oral Nightly mirtazapine 30 mg Oral Nightly nicotine 1 patch TransDERmal Daily Continuous Infusions: sodium chloride 75 mL/hr at 08/30/24 1423 sodium chloride dextrose CBC: Recent Labs 08/28/24 1326 08/29/24 0425 08/30/24 0618 WBC 19.0* 18.6* 17.7* HGB 12.9 12.0 11.2* PLT 198 218 177 BMP: Recent Labs 08/28/24 1326 08/29/24 0425 08/30/24 0618 NA 135* 136 146* K 3.7 3.8 4.5 CL 96* 103 111* CO2 26 22 28 BUN 10 14 8 CREATININE 1.0 0.9 0.6* GLUCOSE 127* 225* 162* Hepatic: Recent Labs 08/28/24 1326 AST 36* ALT 14 BILITOT 0.4 ALKPHOS 102 Troponin: No results for input(s): TROPONINI in the last 72 hours. BNP: No results for input(s): BNP in the last 72 hours. Lipids: No results for input(s): CHOL , HDL in the last 72 hours. Invalid input(s): LDLCALCU INR: No results for input(s): INR in the last 72 hours. Objective: Vitals: BP (!) 138/53 Pulse 77 Temp 98 F (36.7 C) (Axillary) Resp 16 Ht 1.499 m (4' 11 ) Wt 52.2 kg (115 lb) SpO2 100% BMI 23.23 kg/m General appearance: Did not appear in any distress HEENT: Head: Normal, normocephalic, atraumatic. Neck: supple, symmetrical, trachea midline Lungs: Poor chest expansion bilateral wheezing Heart: regular rate and rhythm Abdomen: Soft bowel sounds present Extremities: Homans sign is negative, no sign of DVT Neurologic: Mental status: Much more alert communicating well EKG: Sinus rhythm, marked ST-T abnormalities inferior leads and precordial leads. ECHO: ordered, but not yet obtained. Ejection fraction: 50 to 55%, mildly dilated LV normal LV wall thickness no obvious wall motion abnormality noted Normal IVC diameter and respiratory variation Stress Test: not obtained. Cardiac Angiography: not obtained. Assessment / Acute Cardiac Problems: Admission with acute exacerbation of COPD, influenza A detected Acute hypoxic respiratory failure Borderline abnormal high-sensitivity troponin Abnormal ECG marked ST-T abnormalities in multiple leads inferior leads and precordial leads ECG 08/30/2024 sinus bradycardia, ST-T abnormalities inferior and precordial leads, artifacts Low normal LV systolic function ejection fraction 50 to 55% Patient Active Problem List: Abnormal gastrointestinal PET scan Pneumonia due to infectious organism Influenza A Chest pain Plan of Treatment: Medications reviewed 1: COPD exacerbation acute hypoxic respiratory failure, influenza A positive patient is on Tamiflu, Zithromax and Rocephin, bronchodilators and steroids Nicotine patch 2: Borderline abnormal high-sensitivity troponin and abnormal ECG 2D echo showed normal wall motion ejection fraction 50 to 55% Continue current dose of Lipitor 40 mg a day, metoprolol 50 mg a day Check proBNP Repeat ECG Continue current dose of Lipitor, subcu heparin 5000 units 3 times a day Continue ECG monitoring Occupational Therapy [facility] INPATIENT OCCUPATIONAL THERAPY PROGRESS NOTE Date: 08/30/2024 Patient Name: Kym Briscoe Room: : 1955 (68 y.o.) Gender: female Referring Practitioner: Renee Tavares MD Diagnosis: Influenza A Discharge Recommendations: Further Occupational Therapy is recommended upon facility discharge. OT Equipment Recommendations Other: CTA Restrictions/Precautions Restrictions/Precautions Restrictions/Precautions: General Precautions;Bed Alarm;Fall Risk (Droplet precautions, influenza) Activity Level: Up with Assist Required Braces or Orthoses?: No Implants Present? : (pt denies) Pulse: (!) 128 Heart Rate Source: Monitor SpO2: (!) 88 % O2 Device: Nasal cannula (4L02) Comment: pt HR 110 after BSC>bed transfer. pt HR ranges 115-128 during exercises requiring 2-3 minute RB between sets for HR to reach <115 Subjective Subjective Subjective: pt returning to bed from [facility] c RN as senior copywriter enters room. pt pleasant and cooperative. pt very verbose and requires mod VCs to stay on task. Pain Pre-Pain: (pt c/o minimal headache during exercises. pt does not formally rate. pt states just a little achy. ) Pain Location: Head Pain Descriptor: Aching Comments: RN sujatha tx. Objective Orientation Overall Orientation Status: Within Functional Limits Orientation Level: Oriented X4 Cognition Overall Cognitive Status: Exceptions Arousal/Alertness: Appears intact Following Commands: Follows multistep commands with increased time;Follows multistep commands with repitition Attention Span: Attends with cues to redirect Safety Judgement: Decreased awareness of need for assistance;Decreased awareness of need for safety Problem Solving: Assistance required to generate solutions;Assistance required to implement solutions Insights: Decreased awareness of deficits Initiation: Requires cues for some Sequencing: Requires cues for some Cognition Comment: Pt poor historian periodically throughout evaluation, needing to repeat questions, cue for answers, difficulty dividing attention between questions or tasks. Slight decreased safety awareness, requiring cues for activity pacing and rest breaks. Activities of Daily Living Toileting: Stand by assistance Toileting Skilled Clinical Factors: pt completes ad area hygiene sitting on BS. Additional Comments: Pt currently limited by strength, endurance, activity tolerance, cognition, and safety awareness, requiring skilled OT to increase independence and participation in self-care and functional skills. Balance Balance Sitting Balance: Stand by assistance (pt tolerates sitting EOB unsupported x 18 minutes during HEP and static sitting.) Standing Balance: Stand by assistance Standing Balance Time: <30 seconds Activity: BSC>bed transfer Comment: senior copywriter observed pt walking 4' c RN. Transfers/Mobility Bed mobility Sit to Supine: Stand by assistance Bed Mobility Comments: HOB flat Transfers Sit to stand: Stand by assistance Stand to sit: Stand by assistance Transfer Comments: upon arrival, pt seen completing transfers c RN from BSC to bed Functional Mobility Functional - Mobility Device: No device Activity: Other (within room) Assist Level: Stand by assistance Functional Mobility Comments: no LOB noted, good safety, required VC for breathing and activity pacing. OT Exercises Resistive Exercises: pt engages in BUE HEP with orange resistence band in all shoulder/elbow planes x 15 reps to increase independence and participation in self-care tasks and improve overall quality of life. pt requires VCs to take RB as needed and to slow pace during exercises. pt HR ranges 115-128 during exercises requiring 2-3 minute RB between sets for HR to reach <115 Dynamic Sitting Balance Exercises: pt tolerates sitting EOB unsupported x 18 minutes during HEP c no LOB noted Patient Education Patient Education Education Given To: Patient Education Provided: Role of Therapy, Plan of Care, Transfer Training, Energy Conservation, Fall Prevention Strategies, Home Exercise Program (pursed lip breathing) Education Provided Comments: Educ. patient and dtr on role of OT, POC, safety awareness during functional mobility/transfers, energy conservation techniques including activity pacing and rest breaks/deep breathing to manage COPD symptoms. Education Method: Demonstration, Verbal Barriers to Learning: Cognition Education Outcome: Verbalized understanding, Demonstrated understanding, Continued education needed Goals Short Term Goals Time Frame for Short Term Goals: By discharge Short Term Goal 1: Pt will complete UB ADLs at GERRY with good safety and use of modified techniques/AE as needed. Short Term Goal 2: Pt will complete LB ADLs at GERRY with good safety and use of modified techniques/AE as needed. Short Term Goal 3: Pt will complete functional transfers/mobility at SUP with good safety and use of least restrictive device. Short Term Goal 4: Pt will tolerate static/dynamic standing for 8+ minutes to complete self-care or functional task of choice at SUP to increase overall activity tolerance and independence in functional tasks. Short Term Goal 5: Pt will verbalize/demonstrate 1-2 energy conservation techniques to manage symptoms of COPD and increase overall activity tolerance to improve independence/safety in self-care/functional tasks. Short Term Goal 6: Pt will actively engage in 15+ minutes of therapeutic exercise and functional activity to increase independence and participation in self-care tasks and improve overall quality of life. Occupational Therapy Plan Times Per Week: 4-6 Current Treatment Recommendations: Strengthening, Balance training, Functional mobility training, Endurance training, Safety education & training, Patient/Caregiver education & training, Equipment evaluation, education, & procurement, Self-Care / ADL, Home management training, Sensory integration Assessment Activity Tolerance Activity Tolerance: Patient limited by fatigue, Treatment limited secondary to medical complications (free text) (COPD) Activity Tolerance Comments: Pt overall limited due to COPD exacerbation, monitored O2 throughout session, remained in mid-high 90s, instructed to take rest breaks as needed and complete activity pacing. Assessment Performance deficits / Impairments: Decreased functional mobility , Decreased ADL status, Decreased strength, Decreased safe awareness, Decreased cognition, Decreased endurance, Decreased balance Treatment Diagnosis: impaired self-care status Prognosis: Good Decision Making: Medium Complexity Discharge Recommendations: Patient would benefit from continued therapy after discharge OT Equipment Recommendations Other: CTA Safety Devices Type of Devices: Bed alarm in place, Call light within reach, Gait belt, Patient at risk for falls, Left in bed, Nurse notified AM-PAC Daily Activities Inpatient AM-PAC Daily Activity - Inpatient How much help is needed for putting on and taking off regular lower body clothing?: A Little How much help is needed for bathing (which includes washing, rinsing, drying)?: A Little How much help is needed for toileting (which includes using toilet, bedpan, or urinal)?: A Little How much help is needed for putting on and taking off regular upper body clothing?: A Little How much help is needed for taking care of personal grooming?: A Little How much help for eating meals?: None AM-PAC Inpatient Daily Activity Raw Score: 19 AM-PAC Inpatient ADL T-Scale Score : 40.22 ADL Inpatient CMS 0-100% Score: 42.8 ADL Inpatient CMS G-Code Modifier : CK OT Minutes OT Individual Minutes Time In: 1612 Time Out: 1637 Minutes: 25 Images from the original note were not included. Today's Date: 08/30/2024 Patient Name: Kym Briscoe Date of admission: 08/28/2024 12:41 PM Patient's age: 68 y.o., 1955 Admission Dx: Influenza A [J10.1] COPD exacerbation (HCC) [J44.1] Pneumonia due to infectious agent [J18.9] Community acquired pneumonia, unspecified laterality [J18.9] Reason for Consult: management recommendations Requesting Physician: Rusty Mcghee MD CHIEF COMPLAINT: Influenza A. Shortness of breath. FDG avid lung lesion and peripancreatic lymphadenopathy History Obtained From: patient, electronic medical record, Quality of history: poor historian States shortness of breath is improved. Denies chest pain. Patient off Levophed. Hemoglobin 11.2. Pill count 177 Feels better HISTORY OF PRESENT ILLNESS: The patient is a 68 y.o. female who is admitted to the hospital with chief complaint of shortness of breath. Patient is not a good historian. Patient was transferred from [facility] for multifocal pneumonia. Patient influenza testing came back positive. She started on Tamiflu. Patient also on azithromycin and Rocephin oncology team consulted for CT scan showed portacaval lymph node. Apparently patient has had CT PET done and these lymph nodes were FDG avid. CT scan also shows pulmonary nodules largest 1 measuring 14 mm in greatest dimension according to the report available this nodule FDG avid concerning for malignancy Workup available in Care Everywhere shows slightly elevated CEA at 6.9 patient CA 19-9 was within range. Patient does have biopsy in Care Everywhere which showed lymphoid tissue favor reactive etiology. Patient has been seen by GI at [facility], Dr. Ford. Past Medical History: has a past medical history of COPD (chronic obstructive pulmonary disease) (HCC), Diabetes mellitus (HCC), Emphysema lung (HCC), Hypertension, and UTI (urinary tract infection). Past Surgical History: has a past surgical history that includes section and Upper gastrointestinal endoscopy (N/A, 05/17/2024). Medications: Prior to Admission medications Medication Sig Start Date End Date Taking? Authorizing Provider doxycycline hyclate (VIBRA-TABS) 100 MG tablet Take 1 tablet by mouth 2 times daily 08/28/24 09/04/24 Yes Dallin Patiño MD HYDROcodone-acetaminophen (NORCO) 5-325 MG per tablet Take 1 tablet by mouth every 8 hours as needed for Pain. Max Daily Amount: 3 tablets Yes Dallin Patiño MD losartan (COZAAR) 50 MG tablet Take 1 tablet by mouth daily Yes Dallin Patiño MD predniSONE (DELTASONE) 50 MG tablet Take 1 tablet by mouth daily 08/28/24 09/02/24 Yes Dallin Patiño MD donepezil (ARICEPT) 10 MG tablet Take 1 tablet by mouth nightly Yes Dallin Patiño MD mirtazapine (REMERON) 30 MG tablet Take 1 tablet by mouth nightly Yes Dallin Patiño MD metoprolol succinate (TOPROL XL) 100 MG extended release tablet Take 1 tablet by mouth daily Dallin Patiño MD vitamin D 50 MCG (1999 UT) CAPS capsule Take 1 capsule by mouth daily Dallin Patiño MD albuterol sulfate HFA (PROVENTIL;VENTOLIN;PROAIR) 108 (90 Base) MCG/ACT inhaler INHALE 1 PUFF BY MOUTH EVERY 4 HOURS NEEDED Dallin Patiño MD atorvastatin (LIPITOR) 40 MG tablet Take 1 tablet by mouth Every Day Provider, Historical, MD benzonatate (TESSALON) 200 MG capsule Take 1 capsule by mouth 2 times daily as needed for Cough 03/26/24 Dallin Patiño MD diazePAM (VALIUM) 10 MG tablet Take 1 tablet by mouth every 12 hours as needed. 09/27/23 Dallin Patiño MD wertttqvvlv-usexkfgho-khoybi (TRELEGY ELLIPTA) 100-62.5-25 MCG/ACT AEPB inhaler Inhale 1 puff into the lungs daily 10/22/23 Dallin Patiño MD gabapentin (NEURONTIN) 300 MG capsule Take 1 capsule by mouth 3 times daily. Patient not taking: Reported on 08/28/2024 Dallin Patiño MD glimepiride (AMARYL) 2 MG tablet TAKE 1 TABLET BY MOUTH EVERY DAY WITH BREAKFAST or the first main meal of the day Dallin Patiño MD metFORMIN (GLUCOPHAGE) 500 MG tablet Take 1 tablet by mouth 2 times daily (with meals) Dallin Patiño MD PARoxetine (PAXIL) 40 MG tablet Take 1 tablet by mouth every morning 03/26/24 Dallin Patiño MD Current Facility-Administered Medications Medication Dose Route Frequency Provider Last Rate Last Admin sulfur hexafluoride microspheres (LUMASON) 60.7-25 MG injection 2 mL 2 mL IntraVENous ONCE PRN Puja Ferreira MD 0.45 % sodium chloride infusion IntraVENous Continuous Shakir Cruz MD 75 mL/hr at 08/30/24 1423 New Bag at 08/30/24 1423 oseltamivir (TAMIFLU) capsule 75 mg 75 mg Oral BID Renee Tavares MD HYDROcodone-acetaminophen (NORCO) 5-325 MG per tablet 1 tablet 1 tablet Oral Q8H PRN Wilma Domingo MD atorvastatin (LIPITOR) tablet 40 mg 40 mg Oral Nightly Renee Tavares MD 40 mg at 08/29/242027 benzonatate (TESSALON) capsule 100 mg 100 mg Oral Q4H PRN Renee Tavares MD 100 mg at 08/29/24 0820 diazePAM (VALIUM) tablet 10 mg 10 mg Oral Q12H PRN Renee Tavares MD 10 mg at 08/30/24 0844 metoprolol succinate (TOPROL XL) extended release tablet 50 mg 50 mg Oral Daily Renee Tavares MD PARoxetine (PAXIL) tablet 20 mg 20 mg Oral Daily Renee Tavares MD 20 mg at 08/30/24 0753 budesonide-formoterol (SYMBICORT) 160-4.5 MCG/ACT inhaler 2 puff 2 puff Inhalation BID RT Renee Tavares MD 2 puff at 08/30/24 0716 And tiotropium (SPIRIVA RESPIMAT) 2.5 MCG/ACT inhaler 2 puff 2 puff Inhalation Daily RT Renee Tavares MD 2 puff at 08/30/24 0716 azithromycin (ZITHROMAX) 500 mg in sodium chloride 0.9 % 250 mL IVPB ([id number]) 500 mg IntraVENous Q24H Renee Tavares MD 250 mL/hr at 08/30/24 1550 500 mg at 08/30/24 1550 cefTRIAXone (ROCEPHIN) 1,000 mg in sterile water 10 mL IV syringe 1,000 mg IntraVENous Q24H Renee Tavares MD 1,000 mg at 08/30/24 1221 methylPREDNISolone sodium succ (SOLU-MEDROL) 40 mg in sterile water 1 mL injection 40 mg IntraVENous Q6H Renee Tavares MD 40 mg at 08/30/24 1548 OLANZapine zydis (ZYPREXA) disintegrating tablet 10 mg 10 mg Oral Q12H PRN Renee Tavares MD sodium chloride flush 0.9 % injection 5-40 mL 5-40 mL IntraVENous 2 times per day Renee Tavares MD 10 mL at 08/30/24 0755 sodium chloride flush 0.9 % injection 5-40 mL 5-40 mL IntraVENous PRN Renee Tavares MD 0.9 % sodium chloride infusion IntraVENous PRN Renee Tavares MD potassium chloride (KLOR-CON M) extended release tablet 40 mEq 40 mEq Oral PRN Renee Tavares MD Or potassium bicarb-citric acid (EFFER-K) effervescent tablet 40 mEq 40 mEq Oral PRN Renee Tavares MD Or potassium chloride 10 mEq/100 mL IVPB (Peripheral Line) 10 mEq IntraVENous PRN Renee Tavares MD magnesium sulfate 2000 mg in water 50 mL IVPB 2,000 mg IntraVENous PRN Renee Tavares MD ondansetron (ZOFRAN-ODT) disintegrating tablet 4 mg 4 mg Oral Q8H PRN Renee Tavares MD Or ondansetron (ZOFRAN) injection 4 mg 4 mg IntraVENous Q6H PRN Renee Tavares MD 4 mg at 08/30/24 0545 polyethylene glycol (GLYCOLAX) packet 17 g 17 g Oral Daily PRN Renee Tavares MD acetaminophen (TYLENOL) tablet 650 mg 650 mg Oral Q6H PRN Renee Tavares MD 650 mg at 08/29/24 2155 Or acetaminophen (TYLENOL) suppository 650 mg 650 mg Rectal Q6H PRN Renee Tavares MD heparin (porcine) injection 5,000 Units 5,000 Units SubCUTAneous 3 times per day Renee Tavares MD 5,000 Units at 08/30/24 1422 albuterol (PROVENTIL) (2.5 MG/3ML) 0.083% nebulizer solution 2.5 mg 2.5 mg Nebulization 4x Daily RT Wilma Domingo MD 2.5 mg at 08/30/24 1542 glucose chewable tablet 16 g 4 tablet Oral PRN Wilma Domingo MD dextrose bolus 10% 125 mL 125 mL IntraVENous PRN Wilma Domingo MD Or dextrose bolus 10% 250 mL 250 mL IntraVENous PRN Wilma Domingo MD glucagon injection 1 mg 1 mg SubCUTAneous PRN Wilma Domingo MD dextrose 10 % infusion IntraVENous Continuous PRN Wilma Domingo MD insulin lispro (HUMALOG,ADMELOG) injection vial 0-4 Units 0-4 Units SubCUTAneous 4x Daily AC & HS Wilma Domingo MD 1 Units at 08/30/24 1221 donepezil (ARICEPT) tablet 10 mg 10 mg Oral Nightly Wilma Domingo MD 10 mg at 08/29/242026 mirtazapine (REMERON) tablet 30 mg 30 mg Oral Nightly Wilma Domingo MD 30 mg at 08/29/242027 nicotine (NICODERM CQ) 21 MG/24HR 1 patch 1 patch TransDERmal Daily Wilma Domingo MD 1 patch at 08/30/24 0754 Allergies: Iodinated contrast media and Codeine Social History: reports that she has been smoking cigarettes. She started smoking about 67 years ago. She has a 134.2 pack-year smoking history. She has never used smokeless tobacco. She reports current alcohol use. She reports that she does not use drugs. Family History: family history is not on file. REVIEW OF SYSTEMS: Constitutional: No fever or chills. No night sweats, no weight loss Eyes: No eye discharge, double vision, or eye pain HEENT: negative for sore mouth, sore throat, hoarseness and voice change Respiratory: negative for cough , sputum, dyspnea, wheezing, hemoptysis, chest pain Cardiovascular: negative for chest pain, dyspnea, palpitations, orthopnea, PND Gastrointestinal: negative for nausea, vomiting, diarrhea, constipation, abdominal pain, Dysphagia, hematemesis and hematochezia Genitourinary: negative for frequency, dysuria, nocturia, urinary incontinence, and hematuria Integument: negative for rash, skin lesions, bruises. Hematologic/Lymphatic: negative for easy bruising, bleeding, lymphadenopathy, or petechiae Endocrine: negative for heat or cold intolerance,weight changes, change in bowel habits and hair loss Musculoskeletal: negative for myalgias, arthralgias, pain, joint swelling,and bone pain Neurological: negative for headaches, dizziness, seizures, weakness, numbness PHYSICAL EXAM: BP (!) 149/65 Pulse 98 Temp 98 F (36.7 C) (Axillary) Resp 19 Ht 1.499 m (4' 11 ) Wt 52.2 kg (115 lb) SpO2 96% BMI 23.23 kg/m Temp (24hrs), Av.8 F (36.6 C), Min:97.5 F (36.4 C), Max:98 F (36.7 C) General appearance - well appearing, no in pain or distress Mental status - alert and cooperative Eyes - pupils equal and reactive, extraocular eye movements intact Ears - bilateral TM's and external ear canals normal Mouth - mucous membranes moist, pharynx normal without lesions Neck - supple, no significant adenopathy Lymphatics - no palpable lymphadenopathy, no hepatosplenomegaly Chest - clear to auscultation, no wheezes, rales or rhonchi, symmetric air entry Heart - normal rate, regular rhythm, normal S1, S2, no murmurs Abdomen - soft, nontender, nondistended, no masses or organomegaly Neurological - alert, oriented, normal speech, no focal findings or movement disorder noted Musculoskeletal - no joint tenderness, deformity or swelling Extremities - peripheral pulses normal, no pedal edema, no clubbing or cyanosis Skin - normal coloration and turgor, no rashes, no suspicious skin lesions noted , DATA: Labs: Results for orders placed or performed during the hospital encounter of 08/28/24 COVID-19 & Influenza Combo Specimen: Nasopharyngeal Swab Result Value Ref Range Specimen Description .NASOPHARYNGEAL SWAB Source .NASOPHARYNGEAL SWAB SARS-CoV-2 RNA, RT PCR Not Detected Not Detected Influenza A DETECTED (A) Not Detected Influenza B Not Detected Not Detected Culture, Respiratory Specimen: Sputum Expectorated Result Value Ref Range Specimen Description .EXPECTORATED SPUTUM Special Requests Site: Sputum Direct Exam < 10 EPITHELIAL CELLS/LPF Direct Exam <10 NEUTROPHILS/LPF Direct Exam NO SIGNIFICANT PATHOGENS SEEN Culture NORMAL RESPIRATORY DARA LIGHT GROWTH Culture, Blood 1 Specimen: Blood Result Value Ref Range Specimen Description .BLOOD LAC Special Requests Culture NO GROWTH 1 DAY Culture, Blood 1 Specimen: Blood Result Value Ref Range Specimen Description .BLOOD LH Special Requests Culture NO GROWTH 1 DAY Culture, Urine Specimen: Urine, clean catch Result Value Ref Range Specimen Description .CLEAN CATCH URINE Special Requests Site: Urine Culture NO GROWTH MRSA DNA Probe, Nasal Specimen: Nasal; Nares Result Value Ref Range Specimen Description .NASAL SWAB MRSA, DNA, Nasal NEGATIVE NEGATIVE CBC with Auto Differential Result Value Ref Range WBC 19.0 (H) 3.5 - 11.0 k/uL RBC 4.59 4.0 - 5.2 m/uL Hemoglobin 12.9 12.0 - 16.0 g/dL Hematocrit 40.7 36 - 46 % MCV 88.6 80 - 100 fL MCH 28.0 26 - 34 pg MCHC 31.6 31 - 37 g/dL RDW 14.5 11.5 - 14.9 % Platelets 198 150 - 450 k/uL MPV 9.0 6.0 - 12.0 fL Neutrophils % 89 (H) 36 - 66 % Lymphocytes % 3 (L) 24 - 44 % Monocytes % 7 1 - 7 % Eosinophils % 1 0 - 4 % Basophils % 0 0 - 2 % Neutrophils Absolute 16.91 (H) 1.3 - 9.1 k/uL Lymphocytes Absolute 0.57 (L) 1.0 - 4.8 k/uL Monocytes Absolute 1.33 (H) 0.1 - 1.3 k/uL Eosinophils Absolute 0.19 0.0 - 0.4 k/uL Basophils Absolute 0.00 0.0 - 0.2 k/uL Morphology Normal Comprehensive Metabolic Panel Result Value Ref Range Sodium 135 (L) 136 - 145 mmol/L Potassium 3.7 3.7 - 5.3 mmol/L Chloride 96 (L) 98 - 107 mmol/L CO2 26 20 - 31 mmol/L Anion Gap 13 9 - 16 mmol/L Glucose 127 (H) 74 - 99 mg/dL BUN 10 8 - 23 mg/dL Creatinine 1.0 0.7 - 1.2 mg/dL Est, Glom Filt Rate 61 >60 mL/min/1.73m2 Calcium 8.5 (L) 8.6 - 10.4 mg/dL Total Protein 7.4 6.6 - 8.7 g/dL Albumin 4.0 3.5 - 5.2 g/dL Total Bilirubin 0.4 0.0 - 1.2 mg/dL Alkaline Phosphatase 102 35 - 104 U/L ALT 14 10 - 35 U/L AST 36 (H) 10 - 35 U/L Troponin Now and Q 1 Hour Result Value Ref Range Troponin, High Sensitivity 9 0 - 14 ng/L Magnesium Result Value Ref Range Magnesium 1.3 (L) 1.6 - 2.4 mg/dL Procalcitonin Result Value Ref Range Procalcitonin 1.48 (H) 0.00 - 0.09 ng/mL Troponin Result Value Ref Range Troponin, High Sensitivity 22 (H) 0 - 14 ng/L Troponin Result Value Ref Range Troponin, High Sensitivity 25 (H) 0 - 14 ng/L Lactic Acid Result Value Ref Range Lactic Acid 1.1 0.5 - 2.2 mmol/L Urinalysis with Microscopic Result Value Ref Range Color, UA Yellow Yellow Turbidity UA Clear Clear Glucose, Ur NEGATIVE NEGATIVE mg/dL Bilirubin, Urine NEGATIVE NEGATIVE Ketones, Urine NEGATIVE NEGATIVE mg/dL Specific [place], UA 1.016 1.000 - 1.030 Urine Hgb NEGATIVE NEGATIVE pH, Urine 7.0 5.0 - 8.0 Protein, UA 2+ (A) NEGATIVE mg/dL Urobilinogen, Urine Normal 0.0 - 1.0 EU/dL Nitrite, Urine NEGATIVE NEGATIVE Leukocyte Esterase, Urine TRACE (A) NEGATIVE WBC, UA 3 to 5 (A) 0 TO 5 /HPF RBC, UA 0 TO 2 0 TO 2 /HPF Casts UA 6 TO 9 (A) None /LPF Epithelial Cells, UA 3 to 5 /HPF Bacteria, UA None None Basic Metabolic Panel w/ Reflex to MG Result Value Ref Range Sodium 136 136 - 145 mmol/L Potassium 3.8 3.7 - 5.3 mmol/L Chloride 103 98 - 107 mmol/L CO2 22 20 - 31 mmol/L Anion Gap 11 9 - 16 mmol/L Glucose 225 (H) 74 - 99 mg/dL BUN 14 8 - 23 mg/dL Creatinine 0.9 0.7 - 1.2 mg/dL Est, Glom Filt Rate 69 >60 mL/min/1.73m2 Calcium 8.1 (L) 8.6 - 10.4 mg/dL CBC with Auto Differential Result Value Ref Range WBC 18.6 (H) 3.5 - 11.0 k/uL RBC 4.17 4.0 - 5.2 m/uL Hemoglobin 12.0 12.0 - 16.0 g/dL Hematocrit 37.4 36 - 46 % MCV 89.5 80 - 100 fL MCH 28.7 26 - 34 pg MCHC 32.0 31 - 37 g/dL RDW 14.8 11.5 - 14.9 % Platelets 218 150 - 450 k/uL MPV 9.0 6.0 - 12.0 fL Neutrophils % 96 (H) 36 - 66 % Lymphocytes % 1 (L) 24 - 44 % Monocytes % 3 1 - 7 % Eosinophils % 0 0 - 4 % Basophils % 0 0 - 2 % Neutrophils Absolute 17.85 (H) 1.3 - 9.1 k/uL Lymphocytes Absolute 0.19 (L) 1.0 - 4.8 k/uL Monocytes Absolute 0.56 0.1 - 1.3 k/uL Eosinophils Absolute 0.00 0.0 - 0.4 k/uL Basophils Absolute 0.00 0.0 - 0.2 k/uL Morphology Normal Basic Metabolic Panel w/ Reflex to MG Result Value Ref Range Sodium 146 (H) 136 - 145 mmol/L Potassium 4.5 3.7 - 5.3 mmol/L Chloride 111 (H) 98 - 107 mmol/L CO2 28 20 - 31 mmol/L Anion Gap 7 (L) 9 - 16 mmol/L Glucose 162 (H) 74 - 99 mg/dL BUN 8 8 - 23 mg/dL Creatinine 0.6 (L) 0.7 - 1.2 mg/dL Est, Glom Filt Rate >90 >60 mL/min/1.73m2 Calcium 8.2 (L) 8.6 - 10.4 mg/dL CBC with Auto Differential Result Value Ref Range WBC 17.7 (H) 3.5 - 11.0 k/uL RBC 3.94 (L) 4.0 - 5.2 m/uL Hemoglobin 11.2 (L) 12.0 - 16.0 g/dL Hematocrit 35.2 (L) 36 - 46 % MCV 89.4 80 - 100 fL MCH 28.4 26 - 34 pg MCHC 31.8 31 - 37 g/dL RDW 15.1 (H) 11.5 - 14.9 % Platelets 177 150 - 450 k/uL MPV 9.2 6.0 - 12.0 fL Neutrophils % 93 (H) 36 - 66 % Lymphocytes % 4 (L) 24 - 44 % Monocytes % 2 1 - 7 % Eosinophils % 0 0 - 4 % Basophils % 0 0 - 2 % Bands 1 0 - 10 % Neutrophils Absolute 16.46 (H) 1.3 - 9.1 k/uL Lymphocytes Absolute 0.71 (L) 1.0 - 4.8 k/uL Monocytes Absolute 0.35 0.1 - 1.3 k/uL Eosinophils Absolute 0.00 0.0 - 0.4 k/uL Basophils Absolute 0.00 0.0 - 0.2 k/uL Absolute Bands 0.18 0.0 - 1.0 k/uL Morphology ANISOCYTOSIS PRESENT Morphology HYPOCHROMIA PRESENT Troponin Result Value Ref Range Troponin, High Sensitivity 19 (H) 0 - 14 ng/L Procalcitonin Result Value Ref Range Procalcitonin 0.92 (H) 0.00 - 0.09 ng/mL POC Glucose Fingerstick Result Value Ref Range POC Glucose 169 (H) 65 - 105 mg/dL POC Glucose Fingerstick Result Value Ref Range POC Glucose 194 (H) 65 - 105 mg/dL POC Glucose Fingerstick Result Value Ref Range POC Glucose 159 (H) 65 - 105 mg/dL POC Glucose Fingerstick Result Value Ref Range POC Glucose 222 (H) 65 - 105 mg/dL POC Glucose Fingerstick Result Value Ref Range POC Glucose 191 (H) 65 - 105 mg/dL POC Glucose Fingerstick Result Value Ref Range POC Glucose 227 (H) 65 - 105 mg/dL POC Glucose Fingerstick Result Value Ref Range POC Glucose 177 (H) 65 - 105 mg/dL POC Glucose Fingerstick Result Value Ref Range POC Glucose 144 (H) 65 - 105 mg/dL POC Glucose Fingerstick Result Value Ref Range POC Glucose 239 (H) 65 - 105 mg/dL POC Glucose Fingerstick Result Value Ref Range POC Glucose 191 (H) 65 - 105 mg/dL EKG 12 Lead Result Value Ref Range Ventricular Rate 97 BPM Atrial Rate 97 BPM P-R Interval 122 ms QRS Duration 88 ms Q-T Interval 320 ms QTc Calculation (Bazett) 406 ms P [place] 84 degrees R [place] 57 degrees T [place] -119 degrees EKG 12 Lead Result Value Ref Range Ventricular Rate 54 BPM Atrial Rate 54 BPM P-R Interval 114 ms QRS Duration 82 ms Q-T Interval 392 ms QTc Calculation (Bazett) 371 ms P [place] 64 degrees R [place] 44 degrees T [place] -91 degrees Echo (TTE) complete (PRN contrast/bubble/strain/3D) Result Value Ref Range LA Minor [place] 5.9 cm LA Major [place] 5.4 cm LA Area 2C 17.5 cm2 LA Area 4C 14.4 cm2 LA Volume MOD A2C 43 22 - 52 mL LA Volume MOD A4C 31 22 - 52 mL LA Volume BP 38 22 - 52 mL LA Diameter 3.1 cm RA Area 4C 11.6 cm2 RA Volume 23 ml AV Mean Gradient 8 mmHg AV VTI 40.3 cm AV Mean Velocity 1.4 m/s AV Peak Velocity 2.0 m/s AV Peak Gradient 16 mmHg AV Area by VTI 1.8 cm2 AV Area by Peak Velocity 2.0 cm2 Aortic Root 3.0 cm IVSd 0.5 (A) 0.6 - 0.9 cm LVIDd 5.4 (A) 3.9 - 5.3 cm LVIDs 4.0 cm LVOT Diameter 1.9 cm LVOT Mean Gradient 4 mmHg LVOT VTI 26.1 cm LVOT Peak Velocity 1.4 m/s LVOT Peak Gradient 8 mmHg LVPWd 0.6 0.6 - 0.9 cm LV E' Lateral Velocity 6.74 cm/s LV E' Septal Velocity 7.62 cm/s LVOT Area 2.8 cm2 LVOT SV 74.0 ml MV E Wave Deceleration Time 165.0 ms MV A Velocity 0.94 m/s MV E Velocity 1.15 m/s PV Max Velocity 1.5 m/s PV Peak Gradient 8 mmHg RV Free Wall Peak S' 13.4 cm/s TAPSE 2.2 1.7 cm TR Max Velocity 3.38 m/s TR Peak Gradient 46 mmHg Body Surface Area 1.47 m2 Fractional Shortening 2D 26 28 - 44 % LVIDd Index 3.70 cm/m2 LVIDs Index 2.74 cm/m2 LV RWT Ratio 0.22 LV Mass 2D 98.1 67 - 162 g LV Mass 2D Index 67.2 43 - 95 g/m2 MV E/A 1.22 E/E' Ratio (Averaged) 16.08 E/E' Lateral 17.06 E/E' Septal 15.09 LA Volume Index BP 26 16 - 34 ml/m2 LVOT Stroke Volume Index 50.7 mL/m2 LA Volume Index MOD A2C 29 16 - 34 ml/m2 LA Volume Index MOD A4C 21 16 - 34 ml/m2 LA Size Index 2.12 cm/m2 LA/AO Root Ratio 1.03 RA Volume Index A4C 16 mL/m2 Ao Root Index 2.05 cm/m2 AV Velocity Ratio 0.70 LVOT:AV VTI Index 0.65 LIBAN/BSA VTI 1.2 cm2/m2 LIBAN/BSA Peak Velocity 1.4 cm2/m2 EF Physician 50 % Est. RA Pressure 8 mmHg RVSP 54 mmHg PASP 54 mmHg IMAGING DATA: XR CHEST PORTABLE Result Date: 08/28/2024 EXAMINATION: ONE XRAY VIEW OF THE CHEST 08/28/2024 12:53 pm COMPARISON: None. HISTORY: ORDERING SYSTEM PROVIDED HISTORY: cough TECHNOLOGIST PROVIDED HISTORY: cough Reason for Exam: Cough/pt recent diagnosis of pneumonia FINDINGS: There is apparent scarring in the right upper lobe. Mild infiltrates are noted in the the lower lobes lungs otherwise clear. The heart and mediastinal structures appear normal. Bony structures appear normal. 1. Mild infiltrates in the lower lobes. 2. Apparent scarring in the right upper lobe. IMPRESSION: Primary Problem Pneumonia due to infectious organism Active Hospital Problems Diagnosis Date Noted Influenza A [J10.1] 08/29/2024 Chest pain [R07.9] 08/29/2024 Pneumonia due to infectious organism [J18.9] 08/28/2024 Influenza infection COPD exacerbation History of lung nodule increasing size, FDG avid History of peripancreatic lymph node FDG avid status post biopsy, reactive in nature Slightly elevated CEA RECOMMENDATIONS: I reviewed the labs/imaging available to me,outside records and discussed with the patient.I explained to the patient the nature of this problem. I explained the significance of these abnormalities and possible etiology and management options Reviewed records from outside facility Reviewed records from Care Everywhere Patient not a good historian and does not remember much of the testing done regarding the positive PET scan and biopsy. Apparently patient has had some workup including a PET scan which showed FDG avid lung nodule and peripancreatic lymph node. Patient underwent EGD with EUS and biopsy of the pancreatic lymph node was negative. Patient likely need further workup to follow-up on the lung nodules since they have been increasing in size as well as FDG avid. Patient may have had a false negative biopsy. Will need follow-up which can be done by patient's local physicians in [facility]. Recommend continued follow-up with her doctors in [facility]. Most right now patient respiratory status is not stable enough for invasive procedure. Continue management of influenza and COPD exacerbation at this point. Discussed with patient and Nurse. Thank you for asking us to see this patient. Sofi Em MD This note is created with the assistance of a speech recognition program. While intending to generate a document that actually reflects the content of the visit, the document can still have some errors including those of syntax and sound a like substitutions which may escape proof reading. It such instances, actual meaning can be extrapolated by contextual diversion. Patient called out requesting BSC. During transfer, patient became significantly tachypneic, tachycardic, and hypoxic into the 80s. Nasal cannula increased. After transferring back to bed, some improvement noted, but patient does seem more short of breath than previous assessment. Physical Therapy [facility] Physical Therapy Treatment Date: 08/30/24 Patient Name: Kym Briscoe Room: Account: [id number] : 1955 (68 y.o.) Gender: female Discharge Recommendations: Discharge Recommendations: Patient would benefit from continued therapy after discharge, Continue to assess pending progress PT D/C Equipment Equipment Needed: (CTA as pt progresses through POC) General Patient assessed for rehabilitation services?: Yes Additional Pertinent Hx: Per H and P 08/28/24: The patient is a 68 y.o. Non- / non female who presents withShortness of Breath, Fatigue, Headache, and Cough and she is admitted to the hospital for the management of COPD exacerbation secondary to influenza. PMH COPD, type 2 diabetes, hypertension, dementia. No reported cardiac history Patient has cough, productive sputum, shortness of breath for past few days. Worse with both ambulation and lying flat. No fevers or chills. Hypoxia on room air needing nasal cannula. Uses breathing treatments not oxygen at home. Patient was transferred from [facility] for multifocal pneumonia treatment as her is being treated here for some time. Wants to be near her who she reports is dying. Her granddaughter decreased appetite and oral intake for the last day and believes that she has had some low blood sugar readings. Does have dementia but is an orientated and appropriate responses normally baseline. Response To Previous Treatment: Not applicable Family/Caregiver Present: Yes (Pts daughter arrived during session) Referring Practitioner: Dr. Abhishek Tavares Referral Date : 08/28/24 Diagnosis: Influenza A, COPD exacerbation, pneumonia Follows Commands: Within Functional Limits Other (Comment): OK per nurse Diaz to proceed with PT evaluation Past Medical History: has a past medical history of COPD (chronic obstructive pulmonary disease) (HCC), Diabetes mellitus (HCC), Emphysema lung (HCC), Hypertension, and UTI (urinary tract infection). Past Surgical History: has a past surgical history that includes section and Upper gastrointestinal endoscopy (N/A, 05/17/2024). Restrictions Restrictions/Precautions Restrictions/Precautions: Isolation, Fall Risk, Bed Alarm Activity Level: Up with Assist Required Braces or Orthoses?: No Implants Present? : (pt denies) Subjective Subjective Subjective: Pt in bed on arrival with call light on. Pt requesting to use commode on start of session. Pain Pre-Pain: 0 Post-Pain: 0 Objective Orientation Overall Orientation Status: Within Functional Limits Orientation Level: Oriented X4 Cognition Overall Cognitive Status: Exceptions Arousal/Alertness: Appears intact Following Commands: Follows multistep commands with increased time, Follows multistep commands with repitition Attention Span: Attends with cues to redirect Safety Judgement: Decreased awareness of need for assistance, Decreased awareness of need for safety Problem Solving: Assistance required to generate solutions, Assistance required to implement solutions Insights: Decreased awareness of deficits Initiation: Requires cues for some Sequencing: Requires cues for some Transfers Transfers Sit to Stand: Contact guard assistance Stand to Sit: Contact guard assistance Stand Pivot Transfers: Contact guard assistance (no device bed to commode.) Mobility Ambulation Surface: Level tile Device: No Device, Hand-Held Assist (R AIR ROUTE CONTROLLER) Other Apparatus: O2 Assistance: Contact guard assistance Quality of Gait: Tremulous with taking steps, shortened steps, limited due to lines Distance: 2-3 steps fwd and back x 3 Comments: Pt desats very easily, SpO2 86% with taking steps. HR: 120s bpm Stairs No Bed Mobility Bed mobility Supine to Sit: Contact guard assistance Sit to Supine: Stand by assistance Scooting: Stand by assistance (to EOB) Bed Mobility Comments: With HOB elevated Balance Balance Sitting - Static: Good Sitting - Dynamic: Good Standing - Static: Fair (without AD) Standing - Dynamic: Fair, - (without AD) PT Exercises Exercise Treatment: Increased time for all aspects of mobility due to line management A/AROM Exercises: Seated BLE AROM exercises x 10 Functional Mobility Circuit Training: Stand pivot transfer from bed <> commode. 2 transfers completed. SpO2 87-88% post transfer, HR 110s-120s Static Sitting Balance Exercises: Unsupported sitting on EOB and commode, ~25 minutes total, SBA Breathing Techniques: Cues for pursed lip breathing for O2 recovery Assessment Assessment Treatment Diagnosis: Difficulty walking Therapy Prognosis: Good Decision Making: Medium Complexity Discharge Recommendations: Patient would benefit from continued therapy after discharge, Continue to assess pending progress Activity Tolerance Activity Tolerance: Patient limited by fatigue, Patient limited by endurance Patient Education Patient Education Education Given To: Patient, Family Education Provided: Role of Therapy, Plan of Care, Transfer Training, Mobility Training, Energy Conservation Education Method: Demonstration, Verbal Education Outcome: Continued education needed Functional Outcome Measures AM-PAC Basic Mobility - Inpatient How much help is needed turning from your back to your side while in a flat bed without using bedrails?: A Little How much help is needed moving from lying on your back to sitting on the side of a flat bed without using bedrails?: A Little How much help is needed moving to and from a bed to a chair?: A Little How much help is needed standing up from a chair using your arms?: A Little How much help is needed walking in hospital room?: A Little How much help is needed climbing 3-5 steps with a railing?: A Little AM-PAC Inpatient Mobility Raw Score : 18 AM-PAC Inpatient T-Scale Score : 43.63 Mobility Inpatient CMS 0-100% Score: 46.58 Mobility Inpatient CMS G-Code Modifier : CK Goals Patient Goals Patient Goals : to be able to go home Short Term Goals Time Frame for Short Term Goals: 4-5 visits Short Term Goal 1: Pt to complete sit to stand transfers with supervision assist, stand pivot with supervision assist and least restrictive AD Short Term Goal 2: Pt to ambulate with least restrictive AD for 50 feet with SBA in order to get to/from bathroom Short Term Goal 3: Pt to negotiate 2 steps with bilateral rails SBA Short Term Goal 4: Pt to complete bed mobility sit<>sup independent without rails, flat bed Short Term Goal 5: Pt to improve dynamic standing balance to F+ to reduce fall risk Plan Physical Therapy Plan General Plan: (4-5 visits) Current Treatment Recommendations: Strengthening, Balance training, Functional mobility training, Transfer training, Gait training, Stair training, Neuromuscular re-education, Therapeutic activities Safety Devices Type of Devices: Bed alarm in place, Call light within reach, Left in bed, Nurse notified PT Individual Minutes Time In: 1048 Time Out: 1128 Minutes: 40 Images from the original note were not included. Physical Therapy Physical Therapy Cancel Note DATE: 08/30/2024 NAME: Kym Briscoe : 1955 Patient not seen this date for Physical Therapy due to: Surgery/Procedure: Attempted to see pt 1019. Pt unavailable with other disciplinary having procedure/test done at this time. Will continue to follow and reattempt when pt is available. Physician Progress Note PATIENT: KYM BRISCOE [facility] #: [id number] : 1955 ADMIT DATE: 08/28/2024 12:41 PM DISCH DATE: RESPONDING PROVIDER #: Rusty Mcghee MD QUERY TEXT: Pt admitted with influenza. Pt noted to have on admission HR 90, temp 102.9, WBC 19.0, RR 22. If possible, please document in the progress notes and discharge summary if you are evaluating and /or treating any of the following: The medical record reflects the following: Risk Factors: influenza, pneumonia, acute respiratory failure Clinical Indicators: HR 90, temp 102.9, WBC 19.0, RR 22 Treatment: Rocephin and Zithromax, Tamiflu, monitor labs, monitor vitals Options provided: -- Sepsis due to influenza, present on admission -- Influenza without Sepsis -- Other - I will add my own diagnosis -- Disagree - Not applicable / Not valid -- Disagree - Clinically unable to determine / Unknown -- Refer to Clinical Documentation Reviewer PROVIDER RESPONSE TEXT: This patient has sepsis due to influenza which was present on admission. Query created by: Migdalia Scott on 08/30/2024 7:47 AM Electronically signed by: Rusty Mcghee MD 08/30/2024 10:23 AM [facility]ESS NOTE 08/30/2024 8:36 AM Name: Kym Briscoe Acct: [id number] Room: IP Day: 2 Admit Date: 08/28/2024 12:41 PM PCP: Tomi Sandra II, MD Code Status: Full Code Subjective: C/C: Chief Complaint Patient presents with Shortness of Breath Fatigue Headache Cough Interval History Status: improved. Patient is reporting frustration due to losing/misplacing her lower dentures. Reports improvement in shortness of breath, no chest pain. Brief History: The patient is a 68 y.o. Non- / non female who presents withShortness of Breath, Fatigue, Headache, and Cough and she is admitted to the hospital for the management of COPD exacerbation secondary to influenza. PMH COPD, type 2 diabetes, hypertension, dementia. No reported cardiac history Patient has cough, productive sputum, shortness of breath for past few days. Worse with both ambulation and lying flat. No fevers or chills. Hypoxia on room air needing nasal cannula. Uses breathing treatments not oxygen at home. Patient was transferred from [facility] for multifocal pneumonia treatment as her is being treated here for some time. Wants to be near her who she reports is dying. Her granddaughter decreased appetite and oral intake for the last day and believes that she has had some low blood sugar readings. Does have dementia but is an orientated and appropriate responses normally baseline. Allergies to codeine and contrast. Full code. Review of Systems: Review of Systems Constitutional: Negative for activity change and appetite change. Respiratory: Negative for chest tightness and shortness of breath. Cardiovascular: Negative for chest pain. Gastrointestinal: Negative for abdominal pain and constipation. Genitourinary: Negative for difficulty urinating. Medications: Allergies: Allergies Allergen Reactions Iodinated Contrast Media Itching Codeine Rash Current Meds: Scheduled Meds: oseltamivir 30 mg Oral BID atorvastatin 40 mg Oral Nightly [Held by provider] metoprolol succinate 50 mg Oral Daily PARoxetine 20 mg Oral Daily budesonide-formoterol 2 puff Inhalation BID RT And tiotropium 2 puff Inhalation Daily RT azithromycin 500 mg IntraVENous Q24H cefTRIAXone (ROCEPHIN) IV 1,000 mg IntraVENous Q24H methylPREDNISolone 40 mg IntraVENous Q6H sodium chloride flush 5-40 mL IntraVENous 2 times per day heparin (porcine) 5,000 Units SubCUTAneous 3 times per day albuterol 2.5 mg Nebulization 4x Daily RT insulin lispro 0-4 Units SubCUTAneous 4x Daily AC & HS donepezil 10 mg Oral Nightly mirtazapine 30 mg Oral Nightly nicotine 1 patch TransDERmal Daily Continuous Infusions: sodium chloride dextrose norepinephrine Stopped (08/29/24 1257) lactated ringers 100 mL/hr at 08/30/24 0409 PRN Meds: HYDROcodone-acetaminophen, sulfur hexafluoride microspheres, benzonatate, diazePAM, OLANZapine zydis, sodium chloride flush, sodium chloride, potassium chloride OR potassium alternative oral replacement OR potassium chloride, magnesium sulfate, ondansetron OR ondansetron, polyethylene glycol, acetaminophen OR acetaminophen, glucose, dextrose bolus OR dextrose bolus, glucagon (rDNA), dextrose Data: Past Medical History: has a past medical history of COPD (chronic obstructive pulmonary disease) (HCC), Diabetes mellitus (HCC), Emphysema lung (HCC), Hypertension, and UTI (urinary tract infection). Social History: reports that she has been smoking cigarettes. She started smoking about 67 years ago. She has a 134.2 pack-year smoking history. She has never used smokeless tobacco. She reports current alcohol use. She reports that she does not use drugs. Family History: Family History Problem Relation Age of Onset Colon Cancer Neg Hx Vitals: BP (!) 130/46 Pulse 86 Temp 97.7 F (36.5 C) (Oral) Resp 14 Ht 1.499 m (4' 11 ) Wt 52.2 kg (115 lb) SpO2 91% BMI 23.23 kg/m Temp (24hrs), Av.8 F (36.6 C), Min:97.4 F (36.3 C), Max:98.4 F (36.9 C) Recent Labs 08/29/24 1058 08/29/24 1649 08/29/24 1927 08/30/24 0716 POCGLU 191* 227* 177* 144* I/O(24Hr): Intake/Output Summary (Last 24 hours) at 08/30/2024 0836 Last data filed at 08/30/2024 0411 Gross per 24 hour Intake 2211.3 ml Output -- Net 2211.3 ml Labs: @LABDAILY3@ Lab Results Component Value Date/Time SPECIAL Site: Sputum 08/29/2024 02:09 PM Lab Results Component Value Date/Time CULTURE PENDING 08/29/2024 02:09 PM @CHRISS@ Radiology: XR CHEST PORTABLE Result Date: 08/28/2024 EXAMINATION: ONE XRAY VIEW OF THE CHEST 08/28/2024 12:53 pm COMPARISON: None. HISTORY: ORDERING SYSTEM PROVIDED HISTORY: cough TECHNOLOGIST PROVIDED HISTORY: cough Reason for Exam: Cough/pt recent diagnosis of pneumonia FINDINGS: There is apparent scarring in the right upper lobe. Mild infiltrates are noted in the the lower lobes lungs otherwise clear. The heart and mediastinal structures appear normal. Bony structures appear normal. 1. Mild infiltrates in the lower lobes. 2. Apparent scarring in the right upper lobe. Physical Examination: Physical Exam Constitutional: Appearance: Normal appearance. Cardiovascular: Rate and Rhythm: Normal rate and regular rhythm. Pulses: Normal pulses. Pulmonary: Breath sounds: Wheezing (mild) present. Abdominal: General: There is distension. Palpations: Abdomen is soft. Musculoskeletal: Right lower leg: No edema. Left lower leg: No edema. Psychiatric: Comments: Concerned about loss of dentures Assessment: Primary Problem Pneumonia due to infectious organism Active Hospital Problems Diagnosis Date Noted Influenza A [J10.1] 08/29/2024 Chest pain [R07.9] 08/29/2024 Pneumonia due to infectious organism [J18.9] 08/28/2024 Plan: COPD exacerbation secondary to pneumonia versus other infectious etiology -Chest x-ray shows mild infiltrates in the lower lobes and apparent scarring in right lower lobe -Patient symptoms including significant shortness of breath, wheezing and cough. 74 O2 on room air, started on 4 L O2 nasal cannula with improvement. Not normally on oxygen -Proving on 1 and half liters nasal cannula 08/30/24 -Positive influenza -Leukocytosis downtrending -Pro-Javy ED 1.48, repeat ordered today -Respiratory culture no significant pathogen seen -DuoNeb in ED -Solu-Medrol every 6 -Albuterol, Symbicort, Spiriva -Acapella device -Tamiflu -Azithromycin and ceftriaxone. Likely discontinue today 08/30/24 as cultures have no growth -Santo Hernandez for cough -Patient did spike a fever evening 08/29/24. Urine culture, blood culture obtained-negative for growth Elevated troponin, possibly secondary to CAD -Troponin 22-> 25-> 19 -EKG sinus rhythm -ECHO ordered -Cardiology consulted. Mildly prominent portacaval lymph nodes and pulmonary nodules suspicious for malignancy -Active smoker -Patient previously had CT abdomen pelvis with IV contrast 07/19/24 at outside facility showing suspicion for malignancy -PET scan showed FDG avid lung nodule and peripancreatic lymph node -EGD and EUS and biopsy of pancreatic lymph node negative -Has had follow-ups in [place] -Heme-onc consulted. Likely continue to have workups outpatient Type 2 diabetes -Glucose in ED 127 -POCT glucose checks -Hypoglycemia protocol -Low dose sliding scale Hypotensive episodes in patient with history of hypertension -Toprol-XL 100 mg home medication ordered as Toprol-XL 50 mg - held due to low BP -Losartan held for possible ERASMO. Creatinine 1.0 but previous 2023 0.74 and Cr Cl 40 ml/min -Hypotensive episode likely secondary to dehydration low oral intake on evening of 08/28/24 -Patient was transferred to ICU and needed midodrine which was discontinued as of noon 08/29/24 -May be stable for transfer out of ICU later this afternoon Hyperlipidemia -Continue home medication Lipitor Anxiety, Dementia -Continue home medications Valium, Paxil,Aricept -Zyprexa as needed for agitation. Pulling at her lines in the ED, needed multiple reminders to not do so. DVT prophylaxis: Heparin GI prophylaxis: Not indicated at this time Diet: 5 Carb diet Code: Full Discharge planning: TBD Wilma Domingo MD 08/30/2024 8:36 AM To be discussed with attending Attending Physician Statement I have discussed the care of Kym Briscoe and I have examined the patient myself and taken ROS and HPI, including pertinent history and exam findings, with the resident. I have reviewed the iqbal elements of all parts of the encounter with the resident. I agree with the assessment, plan and orders as documented by the resident [facility] Manav Herron MD/Sabino Carmichael APRN AGACNP-BC, GRAPPLE YARDER OPERATOR-C Mayuri Gama APRN GRAPPLE YARDER OPERATOR-C Emigdio Graham APRN GRAPPLE YARDER OPERATOR-C Pulmonary Critical Care Progress Note Patient - Kym Briscoe Age - 68 y.o. - 1955 N - [id number] [facility] # - [id number] Date of Admission - 08/28/2024 12:41 PM Consulting Service/Physician: Primary Care Physician: Tomi Sandra II, MD SUBJECTIVE: Chief Complaint: Chief Complaint Patient presents with Shortness of Breath Fatigue Headache Cough Flu A Subjective: Patient has been off Levophed since yesterday after give the fluid challenge. The nurse told me that she did very well with breakfast but ate almost none of her lunch. The patient denies nausea abdominal pain but does have some diarrhea. She is requesting [place] that she currently takes 1 to 2 tablets daily for a long time for chronic pain. She got up to the bedside commode with the nurse and developed severe tachycardia, tachypnea, respiratory distress with oxygen desaturation to 80%. The patient was going to be transferred out to progressive care unit but due to very limited movement with severe respiratory distress the nurse was a little uncomfortable so I would plan to keep her here for at least another day. Daughter at bedside updated VITALS BP (!) 144/52 Pulse 72 Temp 97.8 F (36.6 C) (Oral) Resp 18 Ht 1.499 m (4' 11 ) Wt 52.2 kg (115 lb) SpO2 91% BMI 23.23 kg/m Wt Readings from Last 3 Encounters: 08/28/24 52.2 kg (115 lb) 07/26/24 52.6 kg (116 lb) 05/17/24 54.4 kg (120 lb) I/O (24 Hours) Intake/Output Summary (Last 24 hours) at 08/30/2024 0743 Last data filed at 08/30/2024 0411 Gross per 24 hour Intake 2211.3 ml Output -- Net 2211.3 ml Ventilator: Exam: Physical Exam Constitutional: Alert cooperative no distress sitting in the bed HENT: 2 L nasal cannula Neck: Neck supple. Cardiovascular: Regular rate and rhythm. Normal heart tones. No JVD. Pulmonary/Chest: Severely diminished, wheezing better compared to yesterday Extremities: No edema or discoloration Infusions: sodium chloride dextrose norepinephrine Stopped (08/29/24 1257) lactated ringers 100 mL/hr at 08/30/24 0409 Meds: Current Facility-Administered Medications: HYDROcodone-acetaminophen (NORCO) 5-325 MG per tablet 1 tablet, 1 tablet, Oral, Q8H PRN, Alessia Moncada, STEWARD/STEWARDESS DINING ROOM - RESTORATION OFFICER, 1 tablet at 08/30/24 06 oseltamivir (TAMIFLU) capsule 30 mg, 30 mg, Oral, BID, Renee Tavares MD, 30 mg at 08/29/242026 atorvastatin (LIPITOR) tablet 40 mg, 40 mg, Oral, Nightly, Renee Tavares MD, 40 mg at 08/29/242027 benzonatate (TESSALON) capsule 100 mg, 100 mg, Oral, Q4H PRN, Renee Tavares MD, 100 mg at 08/29/24819 diazePAM (VALIUM) tablet 10 mg, 10 mg, Oral, Q12H PRN, Renee Tavares MD, 10 mg at 08/29/242045 [Held by provider] metoprolol succinate (TOPROL XL) extended release tablet 50 mg, 50 mg, Oral, Daily, Renee Tavares MD PARoxetine (PAXIL) tablet 20 mg, 20 mg, Oral, Daily, Renee Tavares MD, 20 mg at 08/29/24 0820 budesonide-formoterol (SYMBICORT) 160-4.5 MCG/ACT inhaler 2 puff, 2 puff, Inhalation, BID RT, 2 puff at 08/30/24 0716 AND tiotropium (SPIRIVA RESPIMAT) 2.5 MCG/ACT inhaler 2 puff, 2 puff, Inhalation, Daily RT, Renee Tavares MD, 2 puff at 08/30/24 0716 azithromycin (ZITHROMAX) 500 mg in sodium chloride 0.9 % 250 mL IVPB ([id number]), 500 mg, IntraVENous, Q24H, Renee Tavares MD, Stopped at 08/29/24 1701 cefTRIAXone (ROCEPHIN) 1,000 mg in sterile water 10 mL IV syringe, 1,000 mg, IntraVENous, Q24H, Renee Tavares MD, 1,000 mg at 08/29/24 1145 methylPREDNISolone sodium succ (SOLU-MEDROL) 40 mg in sterile water 1 mL injection, 40 mg, IntraVENous, Q6H, Renee Tavares MD, 40 mg at 08/30/24 0202 OLANZapine zydis (ZYPREXA) disintegrating tablet 10 mg, 10 mg, Oral, Q12H PRN, Renee Tavares MD sodium chloride flush 0.9 % injection 5-40 mL, 5-40 mL, IntraVENous, 2 times per day, Renee Tavares MD, 10 mL at 08/29/242025 sodium chloride flush 0.9 % injection 5-40 mL, 5-40 mL, IntraVENous, PRN, Renee Tavares MD 0.9 % sodium chloride infusion, , IntraVENous, PRN, Renee Tavares MD potassium chloride (KLOR-CON M) extended release tablet 40 mEq, 40 mEq, Oral, PRN OR potassium bicarb-citric acid (EFFER-K) effervescent tablet 40 mEq, 40 mEq, Oral, PRN OR potassium chloride 10 mEq/100 mL IVPB (Peripheral Line), 10 mEq, IntraVENous, PRN, Renee Tavares MD magnesium sulfate 2000 mg in water 50 mL IVPB, 2,000 mg, IntraVENous, PRN, Renee Tavares MD ondansetron (ZOFRAN-ODT) disintegrating tablet 4 mg, 4 mg, Oral, Q8H PRN OR ondansetron (ZOFRAN) injection 4 mg, 4 mg, IntraVENous, Q6H PRN, Renee Tavares MD, 4 mg at 08/30/24 0545 polyethylene glycol (GLYCOLAX) packet 17 g, 17 g, Oral, Daily PRN, Renee Tavares MD acetaminophen (TYLENOL) tablet 650 mg, 650 mg, Oral, Q6H PRN, 650 mg at 08/29/24 2155 OR acetaminophen (TYLENOL) suppository 650 mg, 650 mg, Rectal, Q6H PRN, Renee Taavres MD heparin (porcine) injection 5,000 Units, 5,000 Units, SubCUTAneous, 3 times per day, Renee Tavares MD, 5,000 Units at 08/30/24 0537 albuterol (PROVENTIL) (2.5 MG/3ML) 0.083% nebulizer solution 2.5 mg, 2.5 mg, Nebulization, 4x Daily RT, Wilma Domingo MD, 2.5 mg at 08/30/24 0717 glucose chewable tablet 16 g, 4 tablet, Oral, PRN, Wilma Domingo MD dextrose bolus 10% 125 mL, 125 mL, IntraVENous, PRN OR dextrose bolus 10% 250 mL, 250 mL, IntraVENous, PRN, Wilma Domingo MD glucagon injection 1 mg, 1 mg, SubCUTAneous, PRN, Wilma Domingo MD dextrose 10 % infusion, , IntraVENous, Continuous PRN, Wilma Domingo MD insulin lispro (HUMALOG,ADMELOG) injection vial 0-4 Units, 0-4 Units, SubCUTAneous, 4x Daily AC & HS, Wilma Domingo MD, 1 Units at 08/29/24 165 donepezil (ARICEPT) tablet 10 mg, 10 mg, Oral, Nightly, Wilma Domingo MD, 10 mg at 08/29/242026 mirtazapine (REMERON) tablet 30 mg, 30 mg, Oral, Nightly, Wilma Domingo MD, 30 mg at 08/29/242027 nicotine (NICODERM CQ) 21 MG/24HR 1 patch, 1 patch, TransDERmal, Daily, Wilma Domingo MD, 1 patch at 08/29/24 0820 norepinephrine (LEVOPHED) 16 mg in sodium chloride 0.9 % 250 mL infusion (premix), 1-100 mcg/min, IntraVENous, Continuous, Manav Herron MD, Stopped at 08/29/24 1257 lactated ringers infusion, , IntraVENous, Continuous, Manav Herron MD, Last Rate: 100 mL/hr at 08/30/24 0409, New Bag at 08/30/24 0409 Lab Results: Lab Results Component Value Date WBC 17.7 (H) 08/30/2024 HGB 11.2 (L) 08/30/2024 HCT 35.2 (L) 08/30/2024 MCV 89.4 08/30/2024 PLT 177 08/30/2024 Lab Results Component Value Date CALCIUM 8.2 (L) 08/30/2024 NA 146 (H) 08/30/2024 K 4.5 08/30/2024 CO2 28 08/30/2024 CL 111 (H) 08/30/2024 BUN 8 08/30/2024 CREATININE 0.6 (L) 08/30/2024 No components found for: ABGSAMPLETYP , ABGBODYTEMP , ABGPHCORRFOR , [id number] , ABGPHCORRFOOR , ABGPH , ABGPCO2 , ABGPO2 , ABGBASEEXCES , ABGBASEDEFIC , ABGHCO3 , EUAL7FXE , ABGENDTIDALC , ABGALLENSTES , ABGSPO2 , ABGSAMEPLESIT , [id number] , ABGOXYGENSOU No results found for: INR , PROTIME Radiology: @[id number]@ My reading of film: No new films. 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 due to smoking Hypotension-off Levophed now for 24 hours Lung nodules,, some are 4 mm, largest 14 mm in the left hilar region per CT report from July, followed by pulmonary in [place] Diabetes mellitus type 2 Dementia-seems to be quite severe Hypertension Dyslipidemia Tobacco dependence still actively smoking Full code PLAN: Change fluid to half-normal saline due to hypernatremia Monitor in ICU stepdown for at least another day Chest x-ray in the morning to make sure she is not developing pleural effusions or mucous plugging causing hypoxia Continue supportive care This progress note was completed using a voice grinder operator surface tool system. Every effort was made to ensure accuracy. However, inadvertent computerized grinder operator surface tool errors may be present. Shakir Cruz MD Pulmonary and Critical Care [phone] Perfect Serve [phone] Cell [facility] Occupational Therapy Evaluation Date: 08/29/24 Patient Name: Kym Mullins: Account: [id number] : 1955 (68 y.o.) Gender: female Discharge Recommendations: Further Occupational Therapy is recommended upon facility discharge. OT Equipment Recommendations Other: CTA Referring Practitioner: Renee Tavares MD Diagnosis: Influenza A Treatment Diagnosis: impaired self-care status Past Medical History: has a past medical history of COPD (chronic obstructive pulmonary disease) (HCC), Diabetes mellitus (HCC), Emphysema lung (HCC), Hypertension, and UTI (urinary tract infection). Past Surgical History: has a past surgical history that includes section and Upper gastrointestinal endoscopy (N/A, 05/17/2024). Restrictions Restrictions/Precautions Restrictions/Precautions: General Precautions, Bed Alarm, Fall Risk (Droplet precautions, influenza) Activity Level: Up with Assist Required Braces or Orthoses?: No Implants Present? : (pt denies) Vitals Vitals O2 Device: Nasal cannula (4L02) Subjective Subjective: I love my family. Pt very pleasant and agreeable to OT/PT evaluation this date. Pt questionable historian with decreased attention but was able to answer most questions fully, daughter arrived end of session and provided supplemental information. Ok per patient for daughter to be present for OT eval. Comments: Ok per CARRI Diaz to see pt for OT/PT evaluation this date. Pain Pre-Pain: (unable to rate- complaining of head pain moderate) Pain Location: Head Pain Descriptor: Sore (patient reportng headache, reporting RN gave her tylenol before session and it is helping some.) Social/Functional History Social/Functional History Lives With: Spouse ( has been at [facility]) Type of Home: [facility] (has house in [place] but currently living in [facility] here; was staying with [facility] before his hospital stay) Home Layout: One level Home Access: Stairs to enter with rails Entrance Stairs - Number of Steps: 4-5 ANA Entrance Stairs - Rails: Both Bathroom Shower/Tub: Walk-in shower, Curtain (has used stool in shower) Bathroom Toilet: Standard Bathroom Equipment: Grab bars in shower (holds onto counter, sink) Bathroom Accessibility: Walker accessible Home Equipment: Cane, Walker - Rolling, Grab bars ( has cane and walker) Has the patient had two or more falls in the past year or any fall with injury in the past year?: Yes (slipped on ice) Receives Help From: Family, tank farm attendant (dtr helps and son in law- both work; grandson available to assist upon d/c; receives assist from aid x8hrs/day, aid assists with housekeeping and transportation for pt.) Prior Level of Assist for ADLs: Independent Prior Level of Assist for Homemaking: Independent Homemaking Responsibilities: Yes (shares with , aid assists as needed) Prior Level of Assist for Ambulation: Independent household ambulator, with or without device, Independent community ambulator, with or without device Prior Level of Assist for Transfers: Independent Active Automotive Airconditioning Mechanic: No Mode of Transportation: SUV (aid drives SUV, dtr drives jeep) 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 is currently at [facility], has been there for 2 months and pt reports that he is planning on returning to live with dtr while she returns to [facility] to care for pet dog. She has family support as needed from dtr and son in law and when 's aid returns she can receive assist from her. Objective ADL Feeding: Modified independent , Based on clinical judgement Grooming: Stand by assistance Grooming Skilled Clinical Factors: In bed with HOB elevated, pt brushed hair at SBA. UE Bathing: Contact guard assistance, Based on clinical judgement LE Bathing: Contact guard assistance, Based on clinical judgement UE Dressing: Contact guard assistance, Based on clinical judgement LE Dressing: Contact guard assistance, Based on clinical judgement Putting On/Taking Off Footwear: Stand by assistance Putting On/Taking Off Footwear Skilled Clinical Factors: Seated EOB, pt donned/doffed BLE trust and estates paralegal socks at SBA for safety, good balance noted, figure four method used. Toileting: Minimal assistance, Based on clinical judgement Toileting Skilled Clinical Factors: Pt and nursing reporting she has gotten up to use toilet and required Krys for line management. Additional Comments: ADL scores based on skilled observation unless otherwise noted. Pt currently limited by strength, endurance, activity tolerance, cognition, and safety awareness, requiring skilled OT to increase independence and participation in self-care and functional skills. Hand Dominance Hand Dominance: Right Orientation Overall Orientation Status: Within Functional Limits Orientation Level: Oriented X4 Cognition Overall Cognitive Status: Exceptions Arousal/Alertness: Appears intact Following Commands: Follows multistep commands with increased time, Follows multistep commands with repitition Attention Span: Attends with cues to redirect Safety Judgement: Decreased awareness of need for assistance, Decreased awareness of need for safety Problem Solving: Assistance required to generate solutions, Assistance required to implement solutions Insights: Decreased awareness of deficits Initiation: Requires cues for some Sequencing: Requires cues for some Cognition Comment: Pt poor historian periodically throughout evaluation, needing to repeat questions, cue for answers, difficulty dividing attention between questions or tasks. Slight decreased safety awareness, requiring cues for activity pacing and rest breaks. Sensation Overall Sensation Status: Impaired (B/L hands, full body spasms starting in arms and down legs) Vision Vision: Within Functional Limits Hearing Hearing: Within functional limits UE Function LUE AROM (degrees) LUE AROM : WFL Left Hand AROM (degrees) Left Hand AROM: WFL Tone LUE LUE Tone: Normotonic LUE Strength Gross LUE Strength: WFL L Hand General: 4+/5 LUE Strength Comment: grossly 4+/5 RUE AROM (degrees) RUE AROM : WFL Right Hand AROM (degrees) Right Hand AROM: WFL Tone RUE RUE Tone: Normotonic RUE Strength Gross RUE Strength: WFL R Hand General: 4+/5 RUE Strength Comment: grossly 4+/5 Fine Motor Skills/Coordination Coordination Movements Are Fluid And Coordinated: Yes Bed Mobility Bed mobility Supine to Sit: Stand by assistance Sit to Supine: Stand by assistance Scooting: Stand by assistance (to EOB) Bed Mobility Comments: With HOB slightly elevated Balance Balance Sitting Balance: Stand by assistance Standing Balance: Contact guard assistance Standing Balance Time: ~1-2 minutes Activity: Functional transfers, functional mobility Comment: Pt stood from EOB with no AE at CGA for ~1-2 minutes, no LOB noted, pt O2 sat decreasing slightly, improved following seated rest break between stands. Transfers Transfers Sit to stand: Contact guard assistance Stand to sit: Contact guard assistance Transfer Comments: From EOB, no AE at CGA for safety, no LOB, good safety with hand placement. Functional Mobility Functional - Mobility Device: No device Activity: Other (within room) Assist Level: Contact guard assistance Functional Mobility Comments: No AE, at CGA for safety, pt took 3 steps forward and back x3 from EOB with assist managing lines. Pt demonstrated no LOB, good safety, required VC for breathing and activity pacing. Assessment Assessment Performance deficits / Impairments: Decreased functional mobility , Decreased ADL status, Decreased strength, Decreased safe awareness, Decreased cognition, Decreased endurance, Decreased balance Treatment Diagnosis: impaired self-care status Prognosis: Good Decision Making: Medium Complexity Discharge Recommendations: Patient would benefit from continued therapy after discharge Activity Tolerance Activity Tolerance: Patient limited by fatigue, Treatment limited secondary to medical complications (free text) (COPD) Activity Tolerance Comments: Pt overall limited due to COPD exacerbation, monitored O2 throughout session, remained in mid-high 90s, instructed to take rest breaks as needed and complete activity pacing. Safety Devices Type of Devices: Bed alarm in place, Call light within reach, Gait belt, Patient at risk for falls, Left in bed, Nurse notified Patient Education Patient Education Education Given To: Patient, Family Education Provided: Role of Therapy, Plan of Care, Transfer Training, Energy Conservation, Fall Prevention Strategies Education Provided Comments: Educ. patient and dtr on role of OT, POC, safety awareness during functional mobility/transfers, energy conservation techniques including activity pacing and rest breaks/deep breathing to manage COPD symptoms. Education Method: Demonstration, Verbal Barriers to Learning: Cognition Education Outcome: Verbalized understanding, Demonstrated understanding, Continued education needed Functional Outcome Measures AM-PAC Daily Activity - Inpatient How much help is needed for putting on and taking off regular lower body clothing?: A Little How much help is needed for bathing (which includes washing, rinsing, drying)?: A Little How much help is needed for toileting (which includes using toilet, bedpan, or urinal)?: A Little How much help is needed for putting on and taking off regular upper body clothing?: A Little How much help is needed for taking care of personal grooming?: A Little How much help for eating meals?: None AM-PAC Inpatient Daily Activity Raw Score: 19 AM-PAC Inpatient ADL T-Scale Score : 40.22 ADL Inpatient CMS 0-100% Score: 42.8 ADL Inpatient CMS G-Code Modifier : CK Goals Short Term Goals Time Frame for Short Term Goals: By discharge Short Term Goal 1: Pt will complete UB ADLs at GERRY with good safety and use of modified techniques/AE as needed. Short Term Goal 2: Pt will complete LB ADLs at GERRY with good safety and use of modified techniques/AE as needed. Short Term Goal 3: Pt will complete functional transfers/mobility at SUP with good safety and use of least restrictive device. Short Term Goal 4: Pt will tolerate static/dynamic standing for 8+ minutes to complete self-care or functional task of choice at SUP to increase overall activity tolerance and independence in functional tasks. Short Term Goal 5: Pt will verbalize/demonstrate 1-2 energy conservation techniques to manage symptoms of COPD and increase overall activity tolerance to improve independence/safety in self-care/functional tasks. Short Term Goal 6: Pt will actively engage in 15+ minutes of therapeutic exercise and functional activity to increase independence and participation in self-care tasks and improve overall quality of life. Plan Occupational Therapy Plan Times Per Week: 4-6 Current Treatment Recommendations: Strengthening, Balance training, Functional mobility training, Endurance training, Safety education & training, Patient/Caregiver education & training, Equipment evaluation, education, & procurement, Self-Care / ADL, Home management training, Sensory integration OT Individual Minutes OT Individual Minutes Time In: 1358 Time Out: 1444 Minutes: 46 Time Code Minutes Timed Code Treatment Minutes: 15 Minutes Co-eval with PT Vicky. Physical Therapy [facility] Physical Therapy Evaluation Date: 08/29/24 Patient Name: Kym Briscoe Room: Account: [id number] : 1955 (68 y.o.) Gender: female Discharge Recommendations: Discharge Recommendations: Patient would benefit from continued therapy after discharge, Continue to assess pending progress PT D/C Equipment Equipment Needed: (CTA as pt progresses through POC) Past Medical History: has a past medical history of COPD (chronic obstructive pulmonary disease) (HCC), Diabetes mellitus (HCC), Emphysema lung (HCC), Hypertension, and UTI (urinary tract infection). Past Surgical History: has a past surgical history that includes section and Upper gastrointestinal endoscopy (N/A, 05/17/2024). Subjective General Patient assessed for rehabilitation services?: Yes Additional Pertinent Hx: Per H and P 08/28/24: The patient is a 68 y.o. Non- / non female who presents withShortness of Breath, Fatigue, Headache, and Cough and she is admitted to the hospital for the management of COPD exacerbation secondary to influenza. PMH COPD, type 2 diabetes, hypertension, dementia. No reported cardiac history Patient has cough, productive sputum, shortness of breath for past few days. Worse with both ambulation and lying flat. No fevers or chills. Hypoxia on room air needing nasal cannula. Uses breathing treatments not oxygen at home. Patient was transferred from [facility] for multifocal pneumonia treatment as her is being treated here for some time. Wants to be near her who she reports is dying. Her granddaughter decreased appetite and oral intake for the last day and believes that she has had some low blood sugar readings. Does have dementia but is an orientated and appropriate responses normally baseline. Response To Previous Treatment: Not applicable Family/Caregiver Present: Yes (daughter) Referring Practitioner: Dr. Abhishek Tavares Referral Date : 08/28/24 Diagnosis: Influenza A, COPD exacerbation, pneumonia Follows Commands: Within Functional Limits Other (Comment): OK per nurse Joe to proceed with PT evaluation General General Comments: Per pt's nurse, he increased her O2 level from 2L to 4L for therapy Pain Pre-Pain: (unable to rate- complaining of head pain) Pain Interventions: Repositioning Social/Functional History Social/Functional History Lives With: Spouse ( has been at [facility]) 2 months) Type of Home: Trailer (has house in [place] but currently living in [facility] here in [place]) Home Layout: One level Home Access: Stairs to enter with rails Entrance Stairs - Number of Steps: 4-5 ANA Entrance Stairs - Rails: Both Bathroom Shower/Tub: Walk-in shower, Curtain (has used stool in shower) Bathroom Toilet: Standard Bathroom Equipment: Grab bars in shower (holds onto counter, sink) Bathroom Accessibility: Walker accessible Home Equipment: Cane, Walker - Rolling ( has cane and walker) Has the patient had two or more falls in the past year or any fall with injury in the past year?: Yes (slipped on ice) Receives Help From: Family (dtr helps and son in law- both work; grandson available to assist upon d/c) Prior Level of Assist for ADLs: Independent Prior Level of Assist for Homemaking: Independent Homemaking Responsibilities: Yes Prior Level of Assist for Ambulation: Independent household ambulator, with or without device, Independent community ambulator, with or without device Prior Level of Assist for Transfers: Independent Active Automotive Airconditioning Mechanic: No Mode of Transportation: SUV (aid drives 8hrs/day for errands, dtr drives jeep) 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 : (pt denies) Objective Transfers Transfers Sit to Stand: Contact guard assistance Stand to Sit: Contact guard assistance Ambulation Ambulation Surface: Level tile Device: No Device Assistance: Contact guard assistance Distance: 2 steps forward, 2 steps back x 3 reps, use of O2 via nasal cannula (Pt limited by telemetry, O2 and IV lines) Comments: Pt may benefit from RW for longer distances Stairs Stairs/Curb Stairs?: No Bed Mobility Bed mobility Supine to Sit: Stand by assistance Sit to Supine: Stand by assistance Balance Balance Sitting - Static: Good Sitting - Dynamic: Good Standing - Static: Fair (without AD) Standing - Dynamic: Fair, - (withhout AD) LE Function AROM RLE (degrees) RLE AROM: WNL Strength RLE Comment: 4/5 throughout AROM LLE (degrees) LLE AROM : WNL Strength LLE Comment: 4/5 throughout UE Function PROM RUE (degrees) RUE General PROM: See OT for UE assessment AROM RUE (degrees) RUE General AROM: See OT for UE assessment Strength RUE Comment: See OT for UE assessment Strength LUE Comment: See OT for UE assessment Vitals Vitals SpO2: 95 % (91 with activity) O2 Device: Nasal cannula (4L/min) Orientation Overall Orientation Status: Within Functional Limits Orientation Level: Oriented X4 Hearing Hearing: Within functional limits Sensation Overall Sensation Status: Impaired (B/L hands, full body spasms starting in arms and down legs) Assessment Assessment Assessment: Pt demonstrates increased need for assist with mobility due to recent hospitalization and debility. Pt could benefit from continued skilled therapy services to facilitate increased independence with mobility and safe d/c Performance Deficits/Impairments: Decreased functional mobility , Decreased strength, Decreased endurance, Decreased balance Treatment Diagnosis: Difficulty walking Therapy Prognosis: Good Decision Making: Medium Complexity History: Influenza A, COPD exacerbation, pnemonia Exam: ROM, strength, balance, transfers, gait Discharge Recommendations: Patient would benefit from continued therapy after discharge, Continue to assess pending progress Activity Tolerance Activity Tolerance: Patient limited by fatigue, Patient limited by endurance Patient Education Patient Education Education Given To: Patient, Family Education Provided: Role of Therapy, Plan of Care, Transfer Training, Mobility Training Education Method: Demonstration, Verbal Education Outcome: Continued education needed Functional Outcome Measures [facility] Basic Mobility - Inpatient How much help is needed turning from your back to your side while in a flat bed without using bedrails?: A Little How much help is needed moving from lying on your back to sitting on the side of a flat bed without using bedrails?: A Little How much help is needed moving to and from a bed to a chair?: A Little How much help is needed standing up from a chair using your arms?: A Little How much help is needed walking in hospital room?: A Little How much help is needed climbing 3-5 steps with a railing?: A Little [facility] Inpatient Mobility Raw Score : 18 [facility] Inpatient T-Scale Score : 43.63 Mobility Inpatient CMS 0-100% Score: 46.58 Mobility Inpatient [facility] G-Code Modifier : CK Goals Patient Goals Patient Goals : to be able to go home Short Term Goals Time Frame for Short Term Goals: 4-5 visits Short Term Goal 1: Pt to complete sit to stand transfers with supervision assist, stand pivot with supervision assist and least restrictive AD Short Term Goal 2: Pt to ambulate with least restrictive AD for 50 feet with SBA in order to get to/from bathroom Short Term Goal 3: Pt to negotiate 2 steps with bilateral rails SBA Short Term Goal 4: Pt to complete bed mobility sit<>sup independent without rails, flat bed Short Term Goal 5: Pt to improve dynamic standing balance to F+ to reduce fall risk Plan Physical Therapy Plan General Plan: (4-5 visits) Current Treatment Recommendations: Strengthening, Balance training, Functional mobility training, Transfer training, Gait training, Stair training, Neuromuscular re-education, Therapeutic activities Safety Devices Type of Devices: Bed alarm in place, Call light within reach, Left in bed, Nurse notified (nurse Diaz) PT Individual Minutes Time In: 1358 Time Out: 1444 Minutes: 46 Time Code Minutes Timed Code Treatment Minutes: 15 Minutes Co eval with OT. Treatment minutes adjusted accordingly Dr Em and Dr Ferreira notified of new consults. Images from the original note were not included. [facility] IN-PATIENT SERVICE [facility] IN-PATIENT SERVICE [facility] HISTORY AND PHYSICAL EXAMINATION Date: 08/29/2024 Patient name: Kym Briscoe Date of admission: 08/28/2024 12:41 PM Account: [id number] Date of : 1955 PCP: Tomi Sandra II, MD Room: Code Status: Full Code Chief Complaint: Chief Complaint Patient presents with Shortness of Breath Fatigue Headache Cough History Obtained From: patient, family member -granddaughter History of Present Illness: The patient is a 68 y.o. Non- / non female who presents withShortness of Breath, Fatigue, Headache, and Cough and she is admitted to the hospital for the management of COPD exacerbation secondary to influenza. PMH COPD, type 2 diabetes, hypertension, dementia. No reported cardiac history Patient has cough, productive sputum, shortness of breath for past few days. Worse with both ambulation and lying flat. No fevers or chills. Hypoxia on room air needing nasal cannula. Uses breathing treatments not oxygen at home. Patient was transferred from [facility] for multifocal pneumonia treatment as her is being treated here for some time. Wants to be near her who she reports is dying. Her granddaughter decreased appetite and oral intake for the last day and believes that she has had some low blood sugar readings. Does have dementia but is an orientated and appropriate responses normally baseline. Allergies to codeine and contrast. Full code. Past Medical History: Past Medical History: Diagnosis Date COPD (chronic obstructive pulmonary disease) (HCC) Diabetes mellitus (HCC) Emphysema lung (HCC) Hypertension UTI (urinary tract infection) Past SurgicalHistory: Past Surgical History: Procedure Laterality Date SECTION UPPER GASTROINTESTINAL ENDOSCOPY N/A 05/17/2024 ENDOSCOPIC ULTRASOUND with pancreatic fine needle biopsies with #22 GA needle with ESOPHAGOGASTRODUODENOSCOPY performed by Mary Ford MD at [facility] Medications Prior to Admission: Prior to Admission medications Medication Sig Start Date End Date Taking? Authorizing Provider doxycycline hyclate (VIBRA-TABS) 100 MG tablet Take 1 tablet by mouth 2 times daily 08/28/24 09/04/24 Yes Dallin Patiño MD HYDROcodone-acetaminophen (NORCO) 5-325 MG per tablet Take 1 tablet by mouth every 8 hours as needed for Pain. Max Daily Amount: 3 tablets Yes Dallin Patiño MD losartan (COZAAR) 50 MG tablet Take 1 tablet by mouth daily Yes Dallin Patiño MD predniSONE (DELTASONE) 50 MG tablet Take 1 tablet by mouth daily 08/28/24 09/02/24 Yes Dallin Patiño MD donepezil (ARICEPT) 10 MG tablet Take 1 tablet by mouth nightly Yes Dallin Patiño MD mirtazapine (REMERON) 30 MG tablet Take 1 tablet by mouth nightly Yes Dallin Patiño MD metoprolol succinate (TOPROL XL) 100 MG extended release tablet Take 1 tablet by mouth daily Dallin Patiño MD vitamin D 50 MCG (1999 UT) CAPS capsule Take 1 capsule by mouth daily Dallin Patiño MD albuterol sulfate HFA (PROVENTIL;VENTOLIN;PROAIR) 108 (90 Base) MCG/ACT inhaler INHALE 1 PUFF BY MOUTH EVERY 4 HOURS NEEDED Dallin Patiño MD atorvastatin (LIPITOR) 40 MG tablet Take 1 tablet by mouth Every Day Provider, Historical, MD benzonatate (TESSALON) 200 MG capsule Take 1 capsule by mouth 2 times daily as needed for Cough 03/26/24 Dallin Patiño MD diazePAM (VALIUM) 10 MG tablet Take 1 tablet by mouth every 12 hours as needed. 09/27/23 Dallin Patiño MD ibsfynqshgb-muapldidc-xattpa (TRELEGY ELLIPTA) 100-62.5-25 MCG/ACT AEPB inhaler Inhale 1 puff into the lungs daily 10/22/23 Dallin Patiño MD gabapentin (NEURONTIN) 300 MG capsule Take 1 capsule by mouth 3 times daily. Patient not taking: Reported on 08/28/2024 Dallin Patiño MD glimepiride (AMARYL) 2 MG tablet TAKE 1 TABLET BY MOUTH EVERY DAY WITH BREAKFAST or the first main meal of the day Dallin Patiño MD metFORMIN (GLUCOPHAGE) 500 MG tablet Take 1 tablet by mouth 2 times daily (with meals) Dallin Patiño MD PARoxetine (PAXIL) 40 MG tablet Take 1 tablet by mouth every morning 03/26/24 Dallin Patiño MD Allergies: Iodinated contrast media and Codeine Social History: Tobacco: reports that she has been smoking cigarettes. She started smoking about 67 years ago. She has a 134.2 pack-year smoking history. She has never used smokeless tobacco. Alcohol: reports current alcohol use. Drug Use: reports no history of drug use. Family History: Family History Problem Relation Age of Onset Colon Cancer Neg Hx Review of Systems: Positive and Negative as described in HPI. Review of Systems Constitutional: Positive for fatigue. Negative for activity change, chills and fever. Respiratory: Positive for cough, chest tightness, shortness of breath and wheezing. Cardiovascular: Negative for chest pain and leg swelling. Gastrointestinal: Negative for abdominal distention and abdominal pain. Genitourinary: Negative for difficulty urinating. Neurological: Positive for headaches. Physical Exam: BP (!) 111/52 Pulse 77 Temp 97.4 F (36.3 C) Resp 18 Ht 1.499 m (4' 11 ) Wt 52.2 kg (115 lb) SpO2 92% BMI 23.23 kg/m Temp (24hrs), Av.7 F (37.1 C), Min:97.4 F (36.3 C), Max:102.9 F (39.4 C) Recent Labs 08/28/24 1627 08/28/24 1948 08/28/24 2204 08/29/24 0716 POCGLU 169* 194* 159* 222* Intake/Output Summary (Last 24 hours) at 08/29/2024 1039 Last data filed at 08/29/2024 0643 Gross per 24 hour Intake 909.69 ml Output 1000 ml Net -90.31 ml Physical Exam HENT: Nose: Congestion and rhinorrhea present. Cardiovascular: Rate and Rhythm: Normal rate and regular rhythm. Pulmonary: Breath sounds: Wheezing and rales present. Abdominal: General: There is no distension. Tenderness: There is no abdominal tenderness. Musculoskeletal: General: No swelling or tenderness. Right lower leg: No edema. Left lower leg: No edema. Neurological: Comments: Orientated to name. Aware of being in the same hospital as her unable to identify a name of hospital Investigations: Laboratory Testing: Recent Results (from the past 24 hour(s)) COVID-19 & Influenza Combo Collection Time: 08/28/24 1:09 PM Specimen: Nasopharyngeal Swab Result Value Ref Range Specimen Description .NASOPHARYNGEAL SWAB Source .NASOPHARYNGEAL SWAB SARS-CoV-2 RNA, RT PCR Not Detected Not Detected Influenza A DETECTED (A) Not Detected Influenza B Not Detected Not Detected CBC with Auto Differential Collection Time: 08/28/24 1:26 PM Result Value Ref Range WBC 19.0 (H) 3.5 - 11.0 k/uL RBC 4.59 4.0 - 5.2 m/uL Hemoglobin 12.9 12.0 - 16.0 g/dL Hematocrit 40.7 36 - 46 % MCV 88.6 80 - 100 fL MCH 28.0 26 - 34 pg MCHC 31.6 31 - 37 g/dL RDW 14.5 11.5 - 14.9 % Platelets 198 150 - 450 k/uL MPV 9.0 6.0 - 12.0 fL Neutrophils % 89 (H) 36 - 66 % Lymphocytes % 3 (L) 24 - 44 % Monocytes % 7 1 - 7 % Eosinophils % 1 0 - 4 % Basophils % 0 0 - 2 % Neutrophils Absolute 16.91 (H) 1.3 - 9.1 k/uL Lymphocytes Absolute 0.57 (L) 1.0 - 4.8 k/uL Monocytes Absolute 1.33 (H) 0.1 - 1.3 k/uL Eosinophils Absolute 0.19 0.0 - 0.4 k/uL Basophils Absolute 0.00 0.0 - 0.2 k/uL Morphology Normal Comprehensive Metabolic Panel Collection Time: 08/28/24 1:26 PM Result Value Ref Range Sodium 135 (L) 136 - 145 mmol/L Potassium 3.7 3.7 - 5.3 mmol/L Chloride 96 (L) 98 - 107 mmol/L CO2 26 20 - 31 mmol/L Anion Gap 13 9 - 16 mmol/L Glucose 127 (H) 74 - 99 mg/dL BUN 10 8 - 23 mg/dL Creatinine 1.0 0.7 - 1.2 mg/dL Est, Glom Filt Rate 61 >60 mL/min/1.73m2 Calcium 8.5 (L) 8.6 - 10.4 mg/dL Total Protein 7.4 6.6 - 8.7 g/dL Albumin 4.0 3.5 - 5.2 g/dL Total Bilirubin 0.4 0.0 - 1.2 mg/dL Alkaline Phosphatase 102 35 - 104 U/L ALT 14 10 - 35 U/L AST 36 (H) 10 - 35 U/L Troponin Now and Q 1 Hour Collection Time: 08/28/24 1:26 PM Result Value Ref Range Troponin, High Sensitivity 9 0 - 14 ng/L Magnesium Collection Time: 08/28/24 1:26 PM Result Value Ref Range Magnesium 1.3 (L) 1.6 - 2.4 mg/dL EKG 12 Lead Collection Time: 08/28/24 2:15 PM Result Value Ref Range Ventricular Rate 97 BPM Atrial Rate 97 BPM P-R Interval 122 ms QRS Duration 88 ms Q-T Interval 320 ms QTc Calculation (Bazett) 406 ms P [place] 84 degrees R [place] 57 degrees T [place] -119 degrees Procalcitonin Collection Time: 08/28/24 3:06 PM Result Value Ref Range Procalcitonin 1.48 (H) 0.00 - 0.09 ng/mL Troponin Collection Time: 08/28/24 3:06 PM Result Value Ref Range Troponin, High Sensitivity 22 (H) 0 - 14 ng/L POC Glucose Fingerstick Collection Time: 08/28/24 4:27 PM Result Value Ref Range POC Glucose 169 (H) 65 - 105 mg/dL Culture, Blood 1 Collection Time: 08/28/24 4:29 PM Specimen: Blood Result Value Ref Range Specimen Description .BLOOD LAC Special Requests Culture NO GROWTH 12 HOURS Troponin Collection Time: 08/28/24 4:30 PM Result Value Ref Range Troponin, High Sensitivity 25 (H) 0 - 14 ng/L Lactic Acid Collection Time: 08/28/24 4:30 PM Result Value Ref Range Lactic Acid 1.1 0.5 - 2.2 mmol/L Culture, Blood 1 Collection Time: 08/28/24 4:38 PM Specimen: Blood Result Value Ref Range Specimen Description .BLOOD LH Special Requests Culture NO GROWTH 12 HOURS Urinalysis with Microscopic Collection Time: 08/28/24 6:09 PM Result Value Ref Range Color, UA Yellow Yellow Turbidity UA Clear Clear Glucose, Ur NEGATIVE NEGATIVE mg/dL Bilirubin, Urine NEGATIVE NEGATIVE Ketones, Urine NEGATIVE NEGATIVE mg/dL Specific [place], UA 1.016 1.000 - 1.030 Urine Hgb NEGATIVE NEGATIVE pH, Urine 7.0 5.0 - 8.0 Protein, UA 2+ (A) NEGATIVE mg/dL Urobilinogen, Urine Normal 0.0 - 1.0 EU/dL Nitrite, Urine NEGATIVE NEGATIVE Leukocyte Esterase, Urine TRACE (A) NEGATIVE WBC, UA 3 to 5 (A) 0 TO 5 /HPF RBC, UA 0 TO 2 0 TO 2 /HPF Casts UA 6 TO 9 (A) None /LPF Epithelial Cells, UA 3 to 5 /HPF Bacteria, UA None None POC Glucose Fingerstick Collection Time: 08/28/24 7:48 PM Result Value Ref Range POC Glucose 194 (H) 65 - 105 mg/dL POC Glucose Fingerstick Collection Time: 08/28/24 10:04 PM Result Value Ref Range POC Glucose 159 (H) 65 - 105 mg/dL Basic Metabolic Panel w/ Reflex to MG Collection Time: 08/29/24 4:25 AM Result Value Ref Range Sodium 136 136 - 145 mmol/L Potassium 3.8 3.7 - 5.3 mmol/L Chloride 103 98 - 107 mmol/L CO2 22 20 - 31 mmol/L Anion Gap 11 9 - 16 mmol/L Glucose 225 (H) 74 - 99 mg/dL BUN 14 8 - 23 mg/dL Creatinine 0.9 0.7 - 1.2 mg/dL Est, Glom Filt Rate 69 >60 mL/min/1.73m2 Calcium 8.1 (L) 8.6 - 10.4 mg/dL CBC with Auto Differential Collection Time: 08/29/24 4:25 AM Result Value Ref Range WBC 18.6 (H) 3.5 - 11.0 k/uL RBC 4.17 4.0 - 5.2 m/uL Hemoglobin 12.0 12.0 - 16.0 g/dL Hematocrit 37.4 36 - 46 % MCV 89.5 80 - 100 fL MCH 28.7 26 - 34 pg MCHC 32.0 31 - 37 g/dL RDW 14.8 11.5 - 14.9 % Platelets 218 150 - 450 k/uL MPV 9.0 6.0 - 12.0 fL Neutrophils % 96 (H) 36 - 66 % Lymphocytes % 1 (L) 24 - 44 % Monocytes % 3 1 - 7 % Eosinophils % 0 0 - 4 % Basophils % 0 0 - 2 % Neutrophils Absolute 17.85 (H) 1.3 - 9.1 k/uL Lymphocytes Absolute 0.19 (L) 1.0 - 4.8 k/uL Monocytes Absolute 0.56 0.1 - 1.3 k/uL Eosinophils Absolute 0.00 0.0 - 0.4 k/uL Basophils Absolute 0.00 0.0 - 0.2 k/uL Morphology Normal POC Glucose Fingerstick Collection Time: 08/29/24 7:16 AM Result Value Ref Range POC Glucose 222 (H) 65 - 105 mg/dL Imaging/Diagnostics: XR CHEST PORTABLE Result Date: 08/28/2024 EXAMINATION: ONE XRAY VIEW OF THE CHEST 08/28/2024 12:53 pm COMPARISON: None. HISTORY: ORDERING SYSTEM PROVIDED HISTORY: cough TECHNOLOGIST PROVIDED HISTORY: cough Reason for Exam: Cough/pt recent diagnosis of pneumonia FINDINGS: There is apparent scarring in the right upper lobe. Mild infiltrates are noted in the the lower lobes lungs otherwise clear. The heart and mediastinal structures appear normal. Bony structures appear normal. 1. Mild infiltrates in the lower lobes. 2. Apparent scarring in the right upper lobe. Assessment : Primary Problem Pneumonia due to infectious agent Active Hospital Problems Diagnosis Date Noted Pneumonia due to infectious agent [J18.9] 08/28/2024 Plan: Patient status Admit as inpatient in the Progressive Unit/Step down COPD exacerbation secondary to pneumonia -Chest x-ray shows mild infiltrates in the lower lobes and apparent scarring in right lower lobe -Patient symptoms including significant shortness of breath, wheezing and cough. 74 O2 on room air, started on 4 L O2 nasal cannula with improvement. Not normally on oxygen -Positive influenza -Respiratory culture pending -DuoNeb in ED -Solu-Medrol every 6 -Albuterol, Symbicort, Spiriva -Acapella device -Tamiflu -Azithromycin and ceftriaxone -Tessalon Perles for cough Electrolyte imbalance-hypomagnesia -Replace electrolytes as needed Type 2 diabetes -Glucose in ED 127 -POCT glucose checks -Hypoglycemia protocol -Low dose sliding scale Hypertension -Toprol-XL 100 mg home medication ordered as Toprol-XL 50 mg - held due to low BP -Losartan held for possible ERASMO. Creatinine 1.0 but previous 2023 0.74 and Cr Cl 40 ml/min Hyperlipidemia -Continue home medication Lipitor Anxiety, Dementia -Continue home medications Valium, Paxil,Aricept -Zyprexa as needed for agitation. Pulling at her lines in the ED, needed multiple reminders to not do so. DVT prophylaxis: Heparin GI prophylaxis: Not indicated at this time Diet: 5 Carb diet Code: Full Discharge planning: TBD 68-year-old lady with history of heavy smoking for over 50 years smokes a pack and a half a day patient claims she is not on oxygen does not have nebulizer but does use inhaler she has been sick for a few days admitted to ED yesterday found to have COPD exacerbation secondary to influenza pneumonia patient was admitted to floor initially then was hypotensive fluid resuscitation failed white cell count 19,000 she was transferred to ICU stepdown Levophed started Shock likely secondary to dehydration rule out hypercortisolism due to steroid inhalers before with check cortisol levels Empiric antibiotic treatment for influenza pneumonia Patient is a poor historian claims history of lung cancer no confirmation of diagnosis no treatment pulmonary input requested Patient will need CT scan when off pressors and pulmonary symptoms have improved History of peripancreatic lymph nodes with history of smoking high risk for pancreatic cancer oncology input dr armida Rivera elevation nonspecific type II NSTEMI with COPD exacerbation Dr. Ferreira to review Patient high risk for CAD with heavy smoking Shipping Clerk/Admin notified Dr. Herron of pt's HR sustaining in low 40's and that pt is symptomatic/ very lethargic. MD states to start dopamine gtt if needed to keep HR >40. Shipping Clerk/Admin notified of new consult. MD okay with starting levophed to keep MAP>65. MD would also like LR's running at 100mL/hr. Pt arrives to room 2012, hooked up to cardiac monitoring, and safety parameters in place. Assessment by senior copywriter to follow. Provider notified of patient hypotension. Patient assessed. She was symptomatic unable to stay awake long enough to answer any questions. Plan for IV fluid bolus. Patient could not remain awake long enough for p.o. midodrine. Plan to transfer to ICU for consideration of Levophed. Plan to consult critical care. Discussed with bedside nursing Contacted Berenice LEE regarding patient's low blood pressure Pharmacy Medication History Note List of current medications patient is taking is complete. Source of information: Sure Scripts, OARRS, Care Everywhere Changes made to medication list: Medications removed (include reason, ex. therapy complete or physician discontinued, noncompliance): Azithromycin - course complete Medications flagged for provider review: Gabapentin - per OARRS, last filled on 04/20/25 with quantity 90 for 30 days Medications added/doses adjusted: Donepezil 10 mg nightly Doxycycline 100 mg twice daily for 7 days Trelegy decreased to 100-62.5-25 mcg/act 1 puff daily [place] 5-325 mg take 1 tablet every 8 hours as needed Losartan 50 mg daily Metoprolol succinate increased to 100 mg daily Mirtazapine 30 mg nightly Paroxetine 40 mg daily Prednisone 50 mg daily for 5 days Other notes (ex. Recent course of antibiotics, Coumadin dosing): Prednisone and doxycycline were prescribed today (08/28/24). The patient has not filled mirtazapine, metoprolol, donepezil, paroxetine, or glimepiride since June 2024 for 30 days. Per OARRS, last fill of diazepam was on 08/22/24 with quantity 60 for 30 days. Per OARRS, last fill of [place] was on 08/24/24 with quantity 30 for 14 days. Current Home Medication List at Time of Admission: Prior to Admission medications Medication Sig doxycycline hyclate (VIBRA-TABS) 100 MG tablet Take 1 tablet by mouth 2 times daily HYDROcodone-acetaminophen (NORCO) 5-325 MG per tablet Take 1 tablet by mouth every 8 hours as needed for Pain. Max Daily Amount: 3 tablets losartan (COZAAR) 50 MG tablet Take 1 tablet by mouth daily predniSONE (DELTASONE) 50 MG tablet Take 1 tablet by mouth daily donepezil (ARICEPT) 10 MG tablet Take 1 tablet by mouth nightly mirtazapine (REMERON) 30 MG tablet Take 1 tablet by mouth nightly metoprolol succinate (TOPROL XL) 100 MG extended release tablet Take 1 tablet by mouth daily vitamin D 50 MCG (2000 UT) CAPS capsule Take 1 capsule by mouth daily albuterol sulfate HFA (PROVENTIL;VENTOLIN;PROAIR) 108 (90 Base) MCG/ACT inhaler INHALE 1 PUFF BY MOUTH EVERY 4 HOURS NEEDED atorvastatin (LIPITOR) 40 MG tablet Take 1 tablet by mouth Every Day benzonatate (TESSALON) 200 MG capsule Take 1 capsule by mouth 2 times daily as needed for Cough diazePAM (VALIUM) 10 MG tablet Take 1 tablet by mouth every 12 hours as needed. kquyfqkaeym-azushkumz-sfssuf (TRELEGY ELLIPTA) 100-62.5-25 MCG/ACT AEPB inhaler Inhale 1 puff into the lungs daily gabapentin (NEURONTIN) 300 MG capsule Take 1 capsule by mouth 3 times daily. Patient not taking: Reported on 08/28/2024 glimepiride (AMARYL) 2 MG tablet TAKE 1 TABLET BY MOUTH EVERY DAY WITH BREAKFAST or the first main meal of the day metFORMIN (GLUCOPHAGE) 500 MG tablet Take 1 tablet by mouth 2 times daily (with meals) PARoxetine (PAXIL) 40 MG tablet Take 1 tablet by mouth every morning Please let me know if you have any questions about this encounter. Thank you! documented in this encounter [facility] 09-03-2024 Hospital Discharge instructions Wilma Domingo MD - 09/03/2024 1:11 PM EST -Please follow-up with your PCP and manager pricing oncologist. Please discuss your headache with your PCP may be due to a combination of your blood pressure and sleep hygiene. -You were treated for COPD exacerbation likely secondary to the influenza A. Completed a course of Tamiflu and are having improvement of symptoms but do require oxygen. Please finish your prednisone taper and follow-up with a weld fitter in [place] in 2 to 4 weeks. External referral was provided for you. Do not smoke at the same time as using your oxygen. -You had elevated lab BNP and an echo that are suggestive of CHF. Improving with diuretics. We started a medication called Bumex for you. Also started aspirin and imdur for possible cardiac ischemia. Please follow-up with a machine woodworking sander in [place]. An external referral was provided for you. Results for cardiologists reference: Echo from 08/30/2024: Left Ventricle: Low normal left ventricular systolic function with a visually estimated EF of 50 - 55%. Left ventricle is mildly dilated. Normal wall thickness. Normal wall motion. Abnormal diastolic function. Aortic Valve: Trileaflet valve. Mildly thickened cusps. Mitral Valve: Mildly thickened leaflets. Trace regurgitation. Tricuspid Valve: Mild regurgitation. Moderately elevated RVSP, consistent with moderate pulmonary hypertension. Est RA pressure is 8 mmHg. The estimated RVSP is 54 mmHg. Left Atrium: Left atrium is mildly dilated. IVC/SVC: IVC diameter is greater than 21 mm and decreases greater than 50% during inspiration; therefore the estimated right atrial pressure is intermediate (~8 mmHg). Image quality is good. EKG from 08/31/2024: Normal sinus rhythm Nonspecific ST and T wave abnormality Abnormal ECG When compared with ECG of 30-AUG-2024 04:02, Premature atrial complexes are no longer Present ST no longer depressed in Inferior leads Nonspecific T wave abnormality has replaced inverted T waves in Inferior leads Please seek urgent medical attention if you begin to have worsening shortness of breath, new onset chest pain, or other changes from your baseline. Thank you Kaycee Rowland RN - 09/03/2024 1:31 PM EST Continuity of Care Form Patient Name: Kym Briscoe : 1955 Admit date: 08/28/2024 Discharge date: Code Status Order: Full Code Advance Directives: Advance Care Flowsheet Documentation Admitting Physician: Rusty Mcghee MD PCP: Tomi Sandra II, MD Discharging Nurse: Discharging Hospital Unit/Room#: 2046/2046-01 Discharging Unit Phone Number: Emergency Contact: Extended Emergency Contact Information Primary Emergency Contact: KWABENA EDDY Mobile Relation: Child Secondary Emergency Contact: BLAIR MIN Mobile Relation: Grandchild Past Surgical History: Past Surgical History: Procedure Laterality Date SECTION UPPER GASTROINTESTINAL ENDOSCOPY N/A 05/17/2024 ENDOSCOPIC ULTRASOUND with pancreatic fine needle biopsies with #22 GA needle with ESOPHAGOGASTRODUODENOSCOPY performed by Mary Ford MD at [facility] Immunization History: There is no immunization history on file for this patient. Active Problems: Patient Active Problem List Diagnosis Code Abnormal gastrointestinal PET scan R94.8 Pneumonia due to infectious organism J18.9 Influenza A J10.1 Chest pain R07.9 Community acquired pneumonia J18.9 Isolation/Infection: Isolation Droplet Patient Infection Status Infection Onset Added Last Indicated Last Indicated By Review Planned Expiration Resolved Resolved By Influenza 08/28/24 08/28/24 08/28/24 COVID-19 & Influenza Combo 09/04/24 09/07/24 Nurse Assessment: Last Vital Signs: BP (!) 156/75 Pulse 78 Temp 98.1 F (36.7 C) Resp 16 Ht 1.499 m (4' 11 ) Wt 52.5 kg (115 lb 11.9 oz) SpO2 95% BMI 23.38 kg/m Last documented pain score (0-10 scale): Pain Level: 10 Last Weight: Wt Readings from Last 1 Encounters: 09/01/24 52.5 kg (115 lb 11.9 oz) Mental Status: {IP PT MENTAL STATUS:} IV Access: { BETTINA IV ACCESS:813567076} Nursing Mobility/ADLs: Walking {CHP DME ADLs:945159170} Transfer {CHP DME ADLs:804864610} Bathing {CHP DME ADLs:954378622} Dressing {CHP DME ADLs:263674967} Toileting {CHP DME ADLs:228870274} Feeding {CHP DME ADLs:404890288} Respite Care Provider {CHP DME ADLs:027317991} Med Delivery { BETTINA MED Delivery:990789601} Wound Care Documentation and Therapy: Elimination: Continence: Bowel: {YES / NO:} Bladder: {YES / NO:} Urinary Catheter: {Urinary Catheter:353699448} Colostomy/Ileostomy/Ileal Conduit: {YES / NO:} Date of Last BM: Intake/Output Summary (Last 24 hours) at 09/03/2024 1331 Last data filed at 09/03/2024 0530 Gross per 24 hour Intake -- Output 1500 ml Net -1500 ml I/O last 3 completed shifts: In: 720 [P.O.:720] Out: 4000 [Urine:4000] Safety Concerns: { BETTINA Safety Concerns:248018680} Impairments/Disabilities: { BETTINA Impairments/Disabilities:952127305} Nutrition Therapy: Current Nutrition Therapy: { BETTINA Diet List:453919004} Routes of Feeding: {CHP DME Other Feedings:240754254} Liquids: {Ornamental Metal Worker Helper liquid thickness:23950} Daily Fluid Restriction: {CHP DME Yes amt example:694337863} Last Modified Barium Swallow with Video (Video Swallowing Test): {Done Not Done Date:} Treatments at the Time of Hospital Discharge: Respiratory Treatments: Oxygen Therapy: {Therapy; copd oxygen:41283} Ventilator: {[facility] Vent List:111533601} Rehab Therapies: {THERAPEUTIC INTERVENTION:4120067352} Weight Bearing Status/Restrictions: { CC Weight Bearin} Other Medical Equipment (for information only, NOT a DME order): {EQUIPMENT:714705562} Other Treatments: Patient's personal belongings (please select all that are sent with patient): {CHP DME Belongings:746813313} RN SIGNATURE: {Esignature:586386495} CASE MANAGEMENT/SOCIAL WORK SECTION Inpatient Status Date: Readmission Risk Assessment Score: [facility] RISK OF UNPLANNED READMISSION 2.0 9.5 Total Score Discharging to Facility/ Agency Name: Address: Phone: Fax: Dialysis Facility (if applicable) Name: Address: Dialysis Schedule: Phone: Fax: Transit Operator/Digital Print Operator signature: {Esignature:[id number]} PHYSICIAN SECTION Prognosis: {Prognosis:7962156341} Condition at Discharge: { Patient Condition:255762163} Rehab Potential (if transferring to Rehab): {Prognosis:2850861743} Recommended Labs or Other Treatments After Discharge: Physician Certification: I certify the above information and transfer of Kym Briscoe is necessary for the continuing treatment of the diagnosis listed and that she requires {Admit to Appropriate Level of Care:23093} for {GREATER/LESS:241650917} 30 days. Update Admission H&P: {CHP DME Changes in [id number]} PHYSICIAN SIGNATURE: {Esignature:[id number]} documented in this encounter [facility] 05-12-2024 Discharge summary Note Date/Time May 12, 2024 11:01am [facility] [address] [place] [address] Discharge Summary Signed Patient: Kym Briscoe MR#: [id number] : 1955 Acct:[id number] Age/Sex: 68 / F Adm Date: 4 Loc: Room: [address] [place] [address]: Fidencio Alvarez MD Copies to: MD Vicky Nunez, GRAPPLE YARDER OPERATOR-C Dee Yao APRN~ Providers Date of Admission: 05/10/24 Date of Discharge: 05/12/24 Discharging Provider: Dee Yao Additional Discharging Provider: Fidencio Alvarez Primary Care Provider: Vicky Oshea Consults: 05/10/24 23:36 Consult to Occupational Therapy Routine Comment: Physician Instructions: Consult to OT for:: Evaluation and Treat Consult to Physical Therapy Routine Comment: Physician Instructions: Consult to PT for:: Evaluation and Treat Discharge Diagnosis (1) AMS (altered mental status): (2) Bradycardia: (3) Light-headed: (4) Tobacco dependence: (5) Diabetes: (6) Hypertension: (7) COPD (chronic obstructive pulmonary disease): (8) Vitamin D deficiency: (9) Polypharmacy: Final Diagnosis Final Discharge Diagnosis: Polypharmacy Metabolic Encephalopathy Bradycardia Tobacco dependence COPD B12 deficiency Folate deficiency Vit D deficiency ruled out UTI Summary Hospital Course Hospital course: 68-year-old female past medical history significant for diabetes, hypertension, hyperlipidemia, COPD, ongoing tobacco use, chronic pain, depression, currently being worked up for pulmonary nodule and pancreatic lesion. Presented to the emergency department May 10 With dizziness, difficulty urinating and confusion.. Workup was undertaken including CT head that was nonacute, also recently noting MRI of brain in March that was nonacute at that time. She was admitted for further management noting she was bradycardic in the 50s. Beta-luna dosing was decreased and she remained on telemetry, had negative orthostatic vitals. Patient also at risk for polypharmacy noting that she is ondiazepam Percocet and gabapentin at home chronically, does have noted meclizine prescription on her home medication listing as well. These medications were held during her hospitalization with improvement in her dizziness. Initially urinalysis appeared positive and she was treated empirically with ceftriaxone however final culture came back negative for growth thus ruling out any UTI. She had improvement in mentation during hospitalization. She was noted to have B12 low normal levels and received cyanocobalamin IM while in hospital as well as folate and vitamin D deficiencies for which supplement was added. Chronic COPD with chronic complaints of dyspnea as well though she is not on any oxygen and can converse fully at a rapid pace during our visit, counseled on smoking cessation, did receive nicotine replacement while in hospital and is noted to smoke 2 packs daily. Despite decreasing beta-luna she has persistent bradycardia in the low 50s. Patient will be discontinued with any beta-blockadetherapy and initiated on losartan which will also have renal benefit with her comorbid diabetes. She should follow-up with her primary care on an outpatient basis and further discuss polypharmacy. Plan is made for discharged home. Continue follow up with oncology and referred specialists as previously scheduled for workup of pancreatic lesion and lung nodule. I have seen the patient independently and evaluated the patient and agree with the history, physical exam, assessment and plan by nurse practitioner. - Fidencio Alvarez MD - Internal Medicine Time Spent with Patient Time spent providing/coordinating discharge services (# min): 40 Discharge Plan Discharge Plan Patient Disposition: Home Activity: No Activity Restriction Diet: Carb Count Additional Instructions: Stop Diazepam (Valium), take Melatonin 5mg nightly for sleep if need (available over the counter) Gabapentin (Neurontin) has been reduced due to dizziness You are on multiple medications that can contribute to dizziness and places you at risk for falls Stop Metoprololl (Toprol). Losartan (Cozaar) has been initiated in place of this for blood pressure control Instructions: Know your Meds Prescriptions: New losartan 50 mg Tablet 50 mg PO DAILY Qty: 30 0RF folic acid 1 mg Tablet 1 mg PO DAILY Qty: 30 0RF cholecalciferol (vitamin D3) 125 mcg (5,000 unit) Capsule 125 mcg PO DAILY Qty: 30 0RF cyanocobalamin (vitamin B-12) 500 mcg tablet 500 mcg PO DAILY Qty: 30 0RF Continued benzonatate 200 mg capsule 200 mg PO BID glimepiride 2 mg tablet 2 mg PO DAILY albuterol sulfate 90 mcg/actuation HFA aerosol inhaler 2 inh INHALATION Q4H PRN (Reason: wheezing) hydrocodone-acetaminophen 5-325 mg tablet 1 tab PO TID PRN (Reason: pain) 3 Days Qty: 9 0RF paroxetine HCl 20 mg tablet 30 mg PO DAILY metformin 500 mg tablet 500 mg PO BID meclizine [Antivert] 25 mg tablet,chewable 25 mg PO DAILY atorvastatin 40 mg tablet 40 mg PO QHS Changed gabapentin 300 mg capsule 300 mg PO BID Qty: 1 0RF Discontinued metoprolol succinate [Toprol XL] 100 mg tablet extended release 24 hr 100 mg PO DAILY diazepam 10 mg tablet 10 mg PO HS PRN (Reason: muscle spasm) Follow Up: [facility] [Outside] - 05/22/24 4:15 pm (Post hospital appointment. Please call to reschedule if needed.) Exam Physical Exam Vital Signs: Temp Pulse Resp BP Pulse Ox O2 Del Method 98.0 F 51 L 12 132/55 L 95 Room Air 05/12/24 08:00 05/12/24 08:00 05/12/24 08:00 05/12/24 08:00 05/12/24 08:00 05/12/24 08:00 Narrative: CONST- alert, up in bathroom, elderly female, mentating clearly today CARD- RRR slow, no abnormal heart tones PULM- dimin scattered wheeze or rhonchi, RA, no cough and able to speak full sentences ABD- S/NT, NABS EXTREM- no edema BLE, calves nontender Diagnostic Studies Completed and Pending Studies Labs on day of discharge: 05/12/24 06:23: POC Glucose 107 05/11/24 20:57: POC Glucose 89 05/11/24 20:29: POC Glucose 68 05/11/24 16:48: POC Glucose 96, POC Glucose Comment Glu2: cleaned meter 05/11/24 16:20: POC Glucose 63, POC Glucose Comment Glu2: cleaned meter 05/11/24 16:03: POC Glucose 65, POC Glucose Comment Glu2: cleaned meter 05/11/24 10:54: POC Glucose 83, POC Glucose Comment Glu2: cleaned meter 05/11/24 06:19: Estimat Average Glucose 146, Hemoglobin A1c 6.7 H Documented By: Dee Yao APRN 04/18 01/08 1036 Signed By: <Electronically signed by ANTHONY Yao> 05/12/24 1251 <Electronically signed by Fidencio Alvarez MD> 05/12/24 [address] [facility] Work Phone: 1(103) 218-543110-25-2024 Progress note Author Fidencio Alvarez [facility] May 11, 2024 1:11pm Note Date/Time May 11, 2024 1 0:28am [facility] [address] [place] [address] Hospitalist Progress Note Signed Patient: Kym Briscoe MR#: [id number] : 1955 Acct:[id number] Age/Sex: 68 / F Adm Date: 4 Loc: 3T Room: [address] [place] [address] Type: ADM IN Attending Dr: Fidencio Alvarez MD Copies to: ~ Date of Service: 05/11/2024 Subjective Subjective Narrative: Patient seen and examined. She is in her room and has one-on-one caregiver due to her impulsivity and restlessness, staff indicates she has been up wandering in the hallway and was doing this time emergency room as well. Although she is fully oriented and follows commands for exam and answers appropriately, her behavior is just odd. She does complain of burning with urination still. Denies any abdominal pain or nausea, no fevers. Denies any chest pain or dizziness at this time. Heart rate remains in the 50s by telemetry, beta-luna has been held. Exam Physical Exam Vital Signs: Temp Pulse Resp BP Pulse Ox O2 Del Method 97.3 F L 58 L 16 129/51 L 93 L Room Air 05/11/24 07:30 05/11/24 08:05 05/11/24 07:30 05/11/24 08:05 05/11/24 07:30 05/11/24 07:30 Narrative: CONST- alert, in chair, elderly female, follows command for exam PSYCH- impulsive and speaks rapid pace, laughs often, restless in room CARD- RRR slow, no abnormal heart tones PULM- dimin without wheeze or rhonchi, RA ABD- S/NT, NABS EXTREM- no edema BLE, calves nontender Objective Lab Results 05/11/24 06:19 05/11/24 06:19 Meds Allergies and Active Meds Allergies codeine Allergy (Verified 05/10/24 15:41) Unknown Reaction Gadolinium-Containing Contrast Medi [From Contrast Media] Allergy (Verified 05/10/24 15:41) Itching Iodinated Contrast Media [From Contrast Media] Allergy (Verified 05/10/24 15:41) Itching Active Meds: Active Medications Generic Name Dose Route Start Last Admin Trade Name Freq PRN Reason Stop Dose Admin Acetaminophen 1,000 mg 05/10/24 23:36 Acetaminophen 500 Mg Tablet PO 05/10/25 23:35 Q6HR PRN Pain Scale 1 - 3 or fever Albuterol 2.5 mg 05/10/24 23:36 Albuterol Neb 2.5 Mg/3 Ml Vial.Neb INHALATION 05/10/25 23:35 Q3H PRN Cough/Wheeze Albuterol 2 puff 05/10/24 23:43 Albuterol Hfa 60 Puff/8 Gram Inhaler INHALATION 05/10/25 23:42 Q4H PRN wheezing Atorvastatin Calcium 40 mg 05/11/24 22:00 Atorvastatin 40 Mg Tablet PO 05/11/25 21:59 QHS YAKELIN Benzonatate 200 mg 05/10/24 23:51 Benzonatate 100 Mg Capsule PO 05/10/25 23:50 BID PRN Cough Ceftriaxone Sodium 1 gm 05/11/24 21:30 Ceftriaxone 1 Gm/10 Ml Syringe IV-PUSH Q24H YAKELIN Dextrose 0 gm 05/10/24 23:36 Dextrose 50% In Water 25 Gm/50 Ml Syringe IV-PUSH 05/10/25 23:35 PRN PRN Hypoglycemia Diazepam 10 mg 05/10/24 23:43 Diazepam 10 Mg Tablet PO 11/06/24 23:42 HS PRN muscle spasm Folic Acid 1 mg 05/12/24 09:00 Folic Acid 1 Mg Tablet PO 05/12/25 08:59 DAILY YAKELIN Glimepiride 2 mg 05/11/24 09:00 05/11/24 07:59 Glimepiride 2 Mg Tablet PO 05/11/25 08:59 2 mg DAILY YAKELIN Administration Glucose 0 gm 05/10/24 23:36 Dextrose 40% Gel 15 Gm Tube PO 05/10/25 23:35 PRN PRN Hypoglycemia Guaifenesin 600 mg 05/10/24 23:36 Guaifenesin 600 Mg Tab.Er.12h PO 05/10/25 23:35 BID PRN Cough Heparin Sodium (Porcine) 5,000 unit 05/11/24 09:00 05/11/24 07:59 Heparin 5,000 Unit/Ml Vial SUBCUT 05/11/25 08:59 5,000 unit Q12HR YAKELIN Administration Insulin Aspart 0 units 05/11/24 08:00 05/11/24 08:14 Insulin Aspart 300 Units/3 Ml Insuln.Pen SUBCUT 05/11/25 07:59 1 units TID.WM.HS YAKELIN Administration Protocol Meclizine HCl 25 mg 05/10/24 23:52 Meclizine 25 Mg Tablet PO 05/10/25 23:51 DAILY PRN dizziness Metoprolol Succinate 50 mg 05/11/24 09:00 05/11/24 07:59 Metoprolol Succinate 50 Mg Tab.Er.24h PO 05/11/25 08:59 50 mg DAILY YAKELIN Administration Nicotine 1 each 05/11/24 10:30 Nicotine Patch 21 Mg/24hr 1 Each Patch.Td24 TRANSDERML 06/21/24 09:01 DAILY YAKELIN Ondansetron HCl 4 mg 05/10/24 23:36 Ondansetron 4 Mg/2 Ml Vial IV-PUSH 05/10/25 23:35 Q6H PRN Nausea And Vomiting Paroxetine HCl 30 mg 05/11/24 09:00 05/11/24 08:14 Paroxetine 30 Mg Tablet PO 05/11/25 08:59 30 mg DAILY YAKELIN Administration Sodium Chloride 0 ml 05/10/24 15:41 Sodium Chloride 0.9 % 10 Ml Syringe IV-PUSH 05/10/25 15:40 PRN PRN Flush Sodium Chloride 0 ml 05/11/24 06:00 05/11/24 08:00 Sodium Chloride 0.9 % 10 Ml Syringe IV-PUSH 05/11/25 05:59 10 ml QSHIFT YAKELIN Administration Vitamin D 25 mcg 05/12/24 09:00 Cholecalciferol 25 Mcg (1,000 Units) Tablet PO 05/12/25 08:59 DAILY YAKELIN A&P - Hospitalist Assessment/Plan (1) AMS (altered mental status): (2) Bradycardia: (3) Light-headed: (4) UTI (urinary tract infection): (5) Tobacco dependence: (6) Diabetes: (7) Hypertension: (8) COPD (chronic obstructive pulmonary disease): (9) Vitamin D deficiency: Plan Metabolic Encephalopathy probably secondary to infection ? B12 low normal- 1x dose Cyanocobalamin IM, TSH normal. No hypoglycemia - CT head- atrophy and small vessel ischemic changes, non-acute. Recent MRI brain 04/12/24 nonacute chronic changes Bradycardia Lightheadedness resolved ? telemetry, Orthostatic vitals sitting to standing negative, patient would not lay down for proper measurement per nursing report ? Metoprolol dosing decreased Suspect UTI - Dysuria, mild leukocytosis, afebrile - Ceftriaxone, follow culture Tobacco dependence ? Tobacco cessation education, nicotine replacement- reported smokes 2PPD ? Nicotine patch daily Low normal B12 -Cyanocobalamin x1 dose Vitamin D deficiency -cholecalciferol added Pulmonary nodule Pancreatic lesion -following with Dr Sandra outpatient, has been undergoing evaluation with GI/pulmonology with recent PET abnormalities. Did have Colonoscopy/ polypectomy 04/25/24 pathology without malignancy. Notes per Dr Herrera/ pulmonology indicatesdifficult area to bronch for biopsy and recommends EGD/EUS for further evaluation of pancreatic lesion to determine if primary Chronic conditions T2DM?fingersticks ACHS, SSI C, glimepiride, hold metformin. A1c 6.7 HTN?decrease dose of metoprolol HLD?atorvastatin Depression?paroxetine Chronic pain?gabapentin COPD?albuterol prn I have seen the patient independently and evaluated the patient and agree with the history, physical exam, assessment and plan by nurse practitioner. - Fidencio Alvarez MD - Internal Medicine Documented By: Dee Yao APRN 04/18 12/08 1028 Signed By: <Electronically signed by ANTHONY Yao> 05/11/24 1252 <Electronically signed by Fidencio Alvarez MD> 05/11/24 13[address] [facility] Work Phone: 1(760) 529-201310-25-2024 History and physical note Author Tahir Amin [facility] May 11, 2024 1:42am Note Date/Time May 10, 2024 1 1:49pm [facility] [address] [place] [address] Hospitalist H&P Signed Patient: Kym Briscoe MR#: [id number] : 1955 Acct:[id number] Age/Sex: 68 / F Adm Date: 4 Loc: 3T Room: [address] [place] [address] Type: ADM IN Attending Dr: Tahir Amin MD Copies to: MD Vicky Vila, YUAN Enriquez APRN~ HPI DATE OF EXAMINATION: 05/10/24 CHIEF COMPLAINT: confusion, dizziness HISTORY OF PRESENT ILLNESS: Ms. Briscoe 68-year-old female with a PMH of severe COPD, T2DM, depression, chronic pain, recent colonoscopy with polypectomy, abnormal PET scan with lung nodules, pancreatic mass, A-fib the presents to the emergency room tonight for confusion and dizziness. Patient seen and examined in the emergency room, no family present at this time. She is alert and oriented x 4. She states that she is here because my daughter thinks I am out of my mind, but I am not. Shereports she lost her youngest daughter 3 years ago and she has not gotten over it. She does lose her train of thought frequently during exam when obtaining history. She states that everyone gets forgetful. She denies fever, chills, nausea or vomiting. States that she is always short of breath, she does smoke 2packs of cigarettes a day. She reports some chest tightness intermittently, shecurrently denies chest pain. She states that sometimes she gets dizzy when she stands up. She also reports pain and burning with urination, denies foul odor. She reports she drinks 1 wine cooler at night. With CT of the head shows atrophy and small vessel ischemic changes, no acute intracranial abnormality. Chest x-ray shows no acute cardiopulmonary abnormality. CBC with a white blood cell count of 11.7, otherwise unremarkable. CMP with an ALP of 112, otherwise unremarkable. Troponins were 3.6 and 3.5. UA with clear, colorless urine, 300 glucose, 2+ leukocytes, 10-19 WBCs, rare amount of bacteria, culture is pending. EKG is sinus bradycardia with a nonspecific T wave abnormality. She was medicated with methylprednisolone, DuoNeb nebulizer, 1 g ceftriaxone given IV push. She will be admitted as inpatient to the [facility] telemetry floor. Review of Systems Review of Systems Review of systems: A 10 point review of systems was obtained, negative unless noted in the HPI or below. [facility] Medical History (Updated 05/11/24 @ 00:47 by Mame Enriquez APRN) Depression Anxiety Lung nodule Emphysema of lung Diabetes COPD (chronic obstructive pulmonary disease) Hypercholesteremia Hypertension Surgical History Hx of colonoscopy History of section, classical Family History (Updated 04/17/24 @ 14:34 by Gail Alvarado RN) Father Lung cancer Mother Myocardial infarction Brother Lung cancer Daughter Lung cancer Brother Lung cancer Sister Diabetes Social History Marital Status: Smoking Status: Current every day smoker (2 pk/day) Tobacco Type: cigarettes Substance Use Type: Alcohol (reports one wine cooler nightly) Substance Abuse Comment: occ Meds Medications and Allergies Allergies codeine Allergy (Verified 05/10/24 15:41) Unknown Reaction Gadolinium-Containing Contrast Medi [From Contrast Media] Allergy (Verified 05/10/24 15:41) Itching Iodinated Contrast Media [From Contrast Media] Allergy (Verified 05/10/24 15:41) Itching Home Medications diazepam 10 mg tablet 10 mg PO HS PRN muscle spasm 09/27/23 [History Confirmed 05/10/24] gabapentin 300 mg capsule 300 mg PO TID 09/27/23 [History Confirmed 05/10/24] metformin 500 mg tablet 500 mg PO BID 09/27/23 [History Confirmed 05/10/24] metoprolol succinate 100 mg tablet,extended release 24 hr (Toprol XL) 100 mg PO DAILY 09/27/23 [History Confirmed 05/10/24] albuterol sulfate 90 mcg/actuation aerosol inhaler 2 inh inhalation Q4H PRN wheezing 10/22/23 [History Confirmed 05/10/24] hydrocodone 5 mg-acetaminophen 325 mg tablet 1 tab PO TID PRN pain 3 days #9 tabs 10/22/23 [Rx Confirmed 05/10/24] benzonatate 200 mg capsule 200 mg PO BID 03/26/24 [History Confirmed 05/10/24] glimepiride 2 mg tablet 2 mg PO DAILY 03/26/24 [History Confirmed 05/10/24] paroxetine HCl 20 mg tablet 30 mg PO DAILY 03/26/24 [History Confirmed 05/10/24] atorvastatin 40 mg tablet 40 mg PO QHS 04/03/24 [History Confirmed 05/10/24] meclizine 25 mg chewable tablet (Antivert) 25 mg PO DAILY 05/10/24 [History Confirmed 05/10/24] Exam Physical Exam Vital Signs: Temp Pulse Resp BP Pulse Ox O2 Del Method 98.2 F 56 L 20 135/61 90 L Room Air 05/10/24 15:42 05/10/24 23:00 05/10/24 23:00 05/10/24 23:00 05/10/24 23:00 05/10/24 23:00 Narrative: CONST- Appears well -developed and well nourished. HEAD - Normocephalic and atraumatic EENT-Sclera nonicteric, conjunctive are non-erythemic, moist oral mucosa, pharynx clear, voice is hoarse NECK-Supple, no cervical lymphadenopathy CARDIAC-bradycardic, regular rhythm, S1 & S2. PULM-diminished, inspiratory and expiratory wheezes to left with scattered rhonchi, expiratory wheeze on right, RA, no accessory muscle use, moist nonproductive cough noted ABD - Soft. Bowel sounds are normal. No distention. No tenderness EXTREM-no edema BLE calves, nontender SKIN- W/D good turgor MS- MAEX4 spontaneously with equal with equal strength NEURO- A&Ox3 speech clear and tongue midline, equal facial symmetry, no focal motor deficits, forgetful, difficulty providing medical history PSYCH-Mood, affect, and behavior appropriate Results - Hospitalist H&P Lab Results Labs: Laboratory Last Values Corrected WBC 11.7 X10E3/uL (3.8-11.6) H 05/10/24 15:58 Uncorrected WBC Count 11.7 x10E3/uL (3.8-11.6) H 05/10/24 15:58 RBC 4.67 X10E6/uL (3.60-5.00) 05/10/24 15:58 Hgb 14.0 g/dL (11.8-15.4) 05/10/24 15:58 Hct 43.3 % (34.0-46.4) 05/10/24 15:58 MCV 92.8 fl (80-100) 05/10/24 15:58 MCH 30.0 pg (24.7-34.3) 05/10/24 15:58 MCHC 32.4 g/dL (32.0-35.0) 05/10/24 15:58 RDW 15.7 % (11.9-15.3) H 05/10/24 15:58 Plt Count 273 x10E3/uL (150-450) 05/10/24 15:58 MPV 8.9 fl (6.3-10.7) 05/10/24 15:58 Neut % (Auto) 67.5 % (.) 05/10/24 15:58 Lymph % (Auto) 21.7 % (.) 05/10/24 15:58 [place] % (Auto) 7.5 % (.) 05/10/24 15:58 Eos % (Auto) 2.1 % (.) 05/10/24 15:58 Baso % (Auto) 1.2 % (.) 05/10/24 15:58 Nucleat RBC Rel Count 0.0 /100 WBC (0-0.5) 05/10/24 15:58 Neut # (Auto) 7.9 x10E3/uL (1.8-7.7) H 05/10/24 15:58 Lymph # (Auto) 2.5 x10E3/uL (1.00-4.8) 05/10/24 15:58 [place] # (Auto) 0.9 x10E3/uL (0.0-0.8) H 05/10/24 15:58 Eos # (Auto) 0.2 x10E3/uL (0.0-0.45) 05/10/24 15:58 Baso # (Auto) 0.1 x10E3/uL (0.0-0.2) 05/10/24 15:58 Monocyte Dist Width 19.33 % (0.00-20.00) 05/10/24 15:58 PHA Creatinine Clear 51.63 05/10/24 15:58 Sodium 138 mmol/L (136-145) 05/10/24 15:58 Potassium 3.9 mmol/L (3.5-5.1) 05/10/24 15:58 Chloride 104 mmol/L (98-107) 05/10/24 15:58 Carbon Dioxide 25.5 mmol/L (21.0-31.0) 05/10/24 15:58 Anion Gap 12.4 mEq/L (6.0-15.0) 05/10/24 15:58 BUN 8 mg/dL (7-25) 05/10/24 15:58 Creatinine 0.70 mg/dL (0.60-1.20) 05/10/24 15:58 Est GFR (CKD-EPI) > 60.0 mL/Min 05/10/24 15:58 Glucose 85 mg/dL (70-100) 05/10/24 15:58 POC Glucose 84 mg/dl 05/10/24 15:56 Calcium 9.6 mg/dL (8.6-10.3) 05/10/24 15:58 Total Bilirubin 0.3 mg/dl (0.3-1.0) 05/10/24 15:58 AST 20 U/L (13-39) 05/10/24 15:58 ALT 15 U/L (7-52) 05/10/24 15:58 Alkaline Phosphatase 112 U/L (34-104) H 05/10/24 15:58 Ammonia 14 umol/L (11-35) 05/10/24 19:12 Total Creatine Kinase 34 U/L (30-223) 05/10/24 15:58 Troponin I High Sens 3.5 pg/mL (0.0-15.0) 05/10/24 18:59 Total Protein 7.6 gm/dL (6.4-8.9) 05/10/24 15:58 Albumin 4.2 gm/dL (3.5-5.7) 05/10/24 15:58 Globulin 3.4 gm/dL 05/10/24 15:58 Albumin/Globulin Ratio 1.2 05/10/24 15:58 Urine Color Colorless (Yellow) 05/10/24 18:07 Urine Appearance Clear (Clear) 05/10/24 18:07 Urine pH 6.5 (5.0-9.0) 05/10/24 18:07 Ur Specific [place] 1.004 (1.001-1.030) 05/10/24 18:07 Urine Protein Negative mg/dL (Negative) 05/10/24 18:07 Urine Glucose (UA) 300 mg/dL (Normal) H 05/10/24 18:07 Urine Ketones Negative (Negative) 05/10/24 18:07 Urine Occult Blood Negative (Negative) 05/10/24 18:07 Urine Nitrite Negative (Negative) 05/10/24 18:07 Urine Bilirubin Negative (Negative) 05/10/24 18:07 Urine Urobilinogen Normal mg/dL (Normal) 05/10/24 18:07 Ur Leukocyte Esterase 2+ (Negative) H 05/10/24 18:07 Urine RBC None seen /HPF (0-4) 05/10/24 18:07 Urine WBC 10-19 /HPF (0-4) H 05/10/24 18:07 Ur Squamous Epith Cells N/A 05/10/24 18:07 Urine Bacteria Rare /HPF (None Seen) 05/10/24 18:07 Hyaline Casts None /LPF (0-8) 05/10/24 18:07 Urine Mucus Rare /LPF 05/10/24 18:07 Assessment & Plan Assessment/Plan (1) AMS (altered mental status): (2) Bradycardia: (3) Light-headed: (4) UTI (urinary tract infection): (5) Tobacco dependence: (6) Diabetes: (7) Hypertension: (8) COPD (chronic obstructive pulmonary disease): Plan Altered mental status ? B12, TSH in a.m. Bradycardia Lightheadedness ? Monitor telemetry ? Will decrease Toprol dose to 50 mg daily ? Orthostatic pressures and pulses UTI?rare amount of bacteria noted on UA, 2+ leukocytes, patient reports dysuria ? Patient received 1 g ceftriaxone in ER ? Continue ceftriaxone ? Follow culture Tobacco dependence?encouraged abstinence ? Tobacco cessation ? Nicotine patch daily Chronic conditions?resume home meds as appropriate T2DM?fingersticks ACHS, SSI C, glimepiride, hold metformin HTN?decrease dose of metoprolol HLD?atorvastatin Depression?paroxetine Chronic pain?gabapentin?OARRS report checked COPD?albuterol as needed DVT PPx?SCDs, heparin Diet order?1800 ADA CODE STATUS?full code IP vs OBS Justification Based on differential dx, clinical care plan, and risk of adverse events, if untreated, in my clinical judgement this patient requires an acute care setting as: INPATIENT because of an expectation of an over 2 midnight stay. Estimated length of stay (# of days): 3 <Statement entered by Tahir Amin MD - 05/11/24 01:42> Reviewed and agree with the assessment and plan of Mame Enriquez GRAPPLE YARDER OPERATOR Documented By: Mame Enriquez APRN 05/10/24 0850 Signed By: <Electronically signed by ANTHONY Enriquez> 05/11/24 0113 <Electronically signed by Tahir Amin MD> 05/11/24 0142 [facility] Work Phone: 1(622) 436-435410-24-2024 Evaluation note* Diagnosis Onset Date Resolution Status Admit Date Bradycardia acute May 10, 2024 9:57pm COPD (chronic obstructive pulmonary disease) acute May 10, 2024 9:57pm Diabetes acute May 10, 2024 9:57pm Hypertension acute April 9:57pm Tobacco dependence acute Octobe r 2023 9:57pm Vitamin D deficiency acute Octo penny 2023 9:57pm AMS (altered mental status) resolved May 10, 2024 9:57pm Light-headed resolved April 9:57pm UTI (urinary tract infection) delete d May 10, 2024 9:57pm [facility] Work Phone: 1(174) 336-400510-09-2024 [facility] Evaluation note* Diagnosis Onset Date Resolution Status Admit Date Lung nodule acute March 8:44am Chain smoker acute April 032023 10:44am Lung nodule acute March 10:44am Pancreas neoplasm acute Septemb 2023 10:44am Bradycardia acute May 10, 2024 9:57pm COPD (chronic obstructive pulmonary disease) acute May 10, 2024 9:57pm Diabetes acute May 10, 2024 9:57pm Hypertension acute April 9:57pm Tobacco dependence acute Octobe r 2023 9:57pm Vitamin D deficiency acute Octo penny 2023 9:57pm AMS (altered mental status) resolved May 10, 2024 9:57pm Light-headed resolved April 9:57pm UTI (urinary tract infection) delete d May 10, 2024 9:57pm [facility] Work Phone: Evaluation noteNo assessment information available [facility] Work Phone: Evaluation note* Diagnosis Onset Date Resolution Status Sore throat noneactive [facility] Work Phone: Evaluation note* Diagnosis Onset Date Resolution Status Oral thrush acute Sore throat noneactive [facility] Work Phone: Evaluation note* Diagnosis Onset Date Resolution Status Oral thrush acute Sore throat noneactive Lung nodule acute [facility] Work Phone: evaluation note* Diagnosis Onset Date Resolution Status Oral thrush acute Sore throat noneactive Lung nodule acute Chain smoker acute Lung nodule acute Pancreas neoplasm acute [facility] Work Phone: evaluation note* Diagnosis Onset Date Resolution Status Oral thrush acute Sore throat noneactive Lung nodule acute Chain smoker acute Lung nodule acute Pancreas neoplasm acute AMS (altered mental status) acute Bradycardia acute COPD (chronic obstructive pulmonary disease) acute Diabetes acute Hypertension acute Light-headed acute Tobacco dependence acute UTI (urinary tract infection) acute [facility] Work Phone: evaluation note* Diagnosis Onset Date Resolution Status Oral thrush acute Sore throat noneactive Lung nodule acute Chain smoker acute Lung nodule acute Pancreas neoplasm acute AMS (altered mental status) acute Bradycardia acute COPD (chronic obstructive pulmonary disease) acute Diabetes acute Hypertension acute Light-headed acute Tobacco dependence acute UTI (urinary tract infection) acute Vitamin D deficiency acute [facility] Work Phone: evaluation note* Diagnosis Abnormal gastrointestinal PET scan- Primary documented in this encounter [facility] [employer] HealthEvaluation note* Diagnosis Pneumonia due to infectious organism- Primary Community acquired pneumonia, unspecified laterality Influenza A Influenza with other respiratory manifestations COPD exacerbation (HCC) Obstructive chronic bronchitis with exacerbation Chest pain, unspecified type Shortness of breath Congestive heart failure, unspecified HF chronicity, unspecified heart failure type (HCC) Influenza A Influenza with other respiratory manifestations Chest pain Chest pain, unspecified Community acquired pneumonia Pneumonia, organism unspecified documented in this encounter [facility] [employer] HealthEvaluation note* Diagnosis COPD exacerbation (HCC)- Primary Obstructive chronic bronchitis with exacerbation documented in this encounter [facility] [employer] HealthHistory and physical note Author Ragini Adams [facility] April 25, 2024 12:39pm Note Date/Time April 25, 2024 12 :39pm [facility] [address] [place] [address] Gastroenterology H&P Signed Patient: Kym Briscoe MR#: [id number] : 1955 Acct:[id number] Age/Sex: 68 / F Adm Date: 4 Loc: Room: Type: [facility] Attending Dr: Ragini Adams DO Copies to: DO Vicky De Leon NP-C~ Date of Service: 04/25/2024 HISTORY & PHYSICAL: Patient's history with special attention to the cardiovascular, pulmonary systems and the current problem was reviewed with the patient immediately prior to the procedure. Present medications and doses reviewed in the EMR. Allergies and pertinent laboratory tests were also reviewedat this time in the EMR. The physical examination, as below, was then performed. Indication, assessment and HPI: 68-year-old female who presents for colonoscopy for abnormal PET scan. Her last colonoscopy was about 5 or 6 years ago. Family history of GI malignancy? No PHYSICAL EXAMINATION General appearance: cooperative, NAD Skin: No jaundice, no rash or lesions Head: NCAT Eyes: Anicteric Neck: Supple Lungs: Normal respiratory effort, no use of accessory muscles Abdomen: Soft, nondistended Neuro: No focal deficits, Ox3. REVIEW OF SYSTEMS Constitutional: Denies malaise, fevers Cardiovascular: Denies chest pain, palpitations Respiratory: Denies shortness of breath, wheezing Gastrointestinal: As per HPI Genitourinary: Denies dysuria, polyuria Musculoskeletal: Denies joint swelling, joint stiffness Neurological: Denies confusion, numbness, tingling Endocrine: Denies fatigue Written informed consent obtained from the patient. Risks (including but not limited to perforation, infection, bloating, bleeding, need for emergent surgeryand loss of life), benefits and alternatives explained and questions answered. The patient verbalized understanding. Based on history patient is an appropriate candidate for the procedure. Ragini Adams DO Present medication and doses reviewed in the EMR Documented By: Ragini Adams DO 04/25/24 1239 Signed By: <Electronically signed by Ragini Adams DO> 04/25/24 [facility] Work Phone: History and physical note Author Tahir Amin [facility] May 11, 2024 1:42am Note Date/Time May 10, 2024 1 1:49pm [facility] [address] [place] [address] Hospitalist H&P Signed Patient: Kym Briscoe MR#: [id number] : 1955 Acct:[id number] Age/Sex: 68 / F Adm Date: 4 Loc: 3T Room: [address] [place] [address] Type: ADM IN Attending Dr: Tahir Amin MD Copies to: MD Vicky Vila, YUAN Enriquez, STEWARD[employer]~ HPI DATE OF EXAMINATION: 05/10/24 CHIEF COMPLAINT: confusion, dizziness HISTORY OF PRESENT ILLNESS: Ms. Briscoe 68-year-old female with a PMH of severe COPD, T2DM, depression, chronic pain, recent colonoscopy with polypectomy, abnormal PET scan with lung nodules, pancreatic mass, A-fib the presents to the emergency room tonight for confusion and dizziness. Patient seen and examined in the emergency room, no family present at this time. She is alert and oriented x 4. She states that she is here because my daughter thinks I am out of my mind, but I am not. Shereports she lost her youngest daughter 3 years ago and she has not gotten over it. She does lose her train of thought frequently during exam when obtaining history. She states that everyone gets forgetful. She denies fever, chills, nausea or vomiting. States that she is always short of breath, she does smoke 2packs of cigarettes a day. She reports some chest tightness intermittently, shecurrently denies chest pain. She states that sometimes she gets dizzy when she stands up. She also reports pain and burning with urination, denies foul odor. She reports she drinks 1 wine cooler at night. With CT of the head shows atrophy and small vessel ischemic changes, no acute intracranial abnormality. Chest x-ray shows no acute cardiopulmonary abnormality. CBC with a white blood cell count of 11.7, otherwise unremarkable. CMP with an ALP of 112, otherwise unremarkable. Troponins were 3.6 and 3.5. UA with clear, colorless urine, 300 glucose, 2+ leukocytes, 10-19 WBCs, rare amount of bacteria, culture is pending. EKG is sinus bradycardia with a nonspecific T wave abnormality. She was medicated with methylprednisolone, DuoNeb nebulizer, 1 g ceftriaxone given IV push. She will be admitted as inpatient to the [facility] telemetry floor. Review of Systems Review of Systems Review of systems: A 10 point review of systems was obtained, negative unless noted in the HPI or below. [facility] Medical History (Updated 05/11/24 @ 00:47 by Mame Enriquez APRN) Depression Anxiety Lung nodule Emphysema of lung Diabetes COPD (chronic obstructive pulmonary disease) Hypercholesteremia Hypertension Surgical History Hx of colonoscopy History of section, classical Family History (Updated 04/17/24 @ 14:34 by Gail Alvarado RN) Father Lung cancer Mother Myocardial infarction Brother Lung cancer Daughter Lung cancer Brother Lung cancer Sister Diabetes Social History Marital Status: Smoking Status: Current every day smoker (2 pk/day) Tobacco Type: cigarettes Substance Use Type: Alcohol (reports one wine cooler nightly) Substance Abuse Comment: occ Meds Medications and Allergies Allergies codeine Allergy (Verified 05/10/24 15:41) Unknown Reaction Gadolinium-Containing Contrast Medi [From Contrast Media] Allergy (Verified 05/10/24 15:41) Itching Iodinated Contrast Media [From Contrast Media] Allergy (Verified 05/10/24 15:41) Itching Home Medications diazepam 10 mg tablet 10 mg PO HS PRN muscle spasm 09/27/23 [History Confirmed 05/10/24] gabapentin 300 mg capsule 300 mg PO TID 09/27/23 [History Confirmed 05/10/24] metformin 500 mg tablet 500 mg PO BID 09/27/23 [History Confirmed 05/10/24] metoprolol succinate 100 mg tablet,extended release 24 hr (Toprol XL) 100 mg PO DAILY 09/27/23 [History Confirmed 05/10/24] albuterol sulfate 90 mcg/actuation aerosol inhaler 2 inh inhalation Q4H PRN wheezing 10/22/23 [History Confirmed 05/10/24] hydrocodone 5 mg-acetaminophen 325 mg tablet 1 tab PO TID PRN pain 3 days #9 tabs 10/22/23 [Rx Confirmed 05/10/24] benzonatate 200 mg capsule 200 mg PO BID 03/26/24 [History Confirmed 05/10/24] glimepiride 2 mg tablet 2 mg PO DAILY 03/26/24 [History Confirmed 05/10/24] paroxetine HCl 20 mg tablet 30 mg PO DAILY 03/26/24 [History Confirmed 05/10/24] atorvastatin 40 mg tablet 40 mg PO QHS 04/03/24 [History Confirmed 05/10/24] meclizine 25 mg chewable tablet (Antivert) 25 mg PO DAILY 05/10/24 [History Confirmed 05/10/24] Exam Physical Exam Vital Signs: Temp Pulse Resp BP Pulse Ox O2 Del Method 98.2 F 56 L 20 135/61 90 L Room Air 05/10/24 15:42 05/10/24 23:00 05/10/24 23:00 05/10/24 23:00 05/10/24 23:00 05/10/24 23:00 Narrative: CONST- Appears well -developed and well nourished. HEAD - Normocephalic and atraumatic EENT-Sclera nonicteric, conjunctive are non-erythemic, moist oral mucosa, pharynx clear, voice is hoarse NECK-Supple, no cervical lymphadenopathy CARDIAC-bradycardic, regular rhythm, S1 & S2. PULM-diminished, inspiratory and expiratory wheezes to left with scattered rhonchi, expiratory wheeze on right, RA, no accessory muscle use, moist nonproductive cough noted ABD - Soft. Bowel sounds are normal. No distention. No tenderness EXTREM-no edema BLE calves, nontender SKIN- W/D good turgor MS- MAEX4 spontaneously with equal with equal strength NEURO- A&Ox3 speech clear and tongue midline, equal facial symmetry, no focal motor deficits, forgetful, difficulty providing medical history PSYCH-Mood, affect, and behavior appropriate Results - Hospitalist H&P Lab Results Labs: Laboratory Last Values Corrected WBC 11.7 X10E3/uL (3.8-11.6) H 05/10/24 15:58 Uncorrected WBC Count 11.7 x10E3/uL (3.8-11.6) H 05/10/24 15:58 RBC 4.67 X10E6/uL (3.60-5.00) 05/10/24 15:58 Hgb 14.0 g/dL (11.8-15.4) 05/10/24 15:58 Hct 43.3 % (34.0-46.4) 05/10/24 15:58 MCV 92.8 fl (80-100) 05/10/24 15:58 MCH 30.0 pg (24.7-34.3) 05/10/24 15:58 MCHC 32.4 g/dL (32.0-35.0) 05/10/24 15:58 RDW 15.7 % (11.9-15.3) H 05/10/24 15:58 Plt Count 273 x10E3/uL (150-450) 05/10/24 15:58 MPV 8.9 fl (6.3-10.7) 05/10/24 15:58 Neut % (Auto) 67.5 % (.) 05/10/24 15:58 Lymph % (Auto) 21.7 % (.) 05/10/24 15:58 [place] % (Auto) 7.5 % (.) 05/10/24 15:58 Eos % (Auto) 2.1 % (.) 05/10/24 15:58 Baso % (Auto) 1.2 % (.) 05/10/24 15:58 Nucleat RBC Rel Count 0.0 /100 WBC (0-0.5) 05/10/24 15:58 Neut # (Auto) 7.9 x10E3/uL (1.8-7.7) H 05/10/24 15:58 Lymph # (Auto) 2.5 x10E3/uL (1.00-4.8) 05/10/24 15:58 [place] # (Auto) 0.9 x10E3/uL (0.0-0.8) H 05/10/24 15:58 Eos # (Auto) 0.2 x10E3/uL (0.0-0.45) 05/10/24 15:58 Baso # (Auto) 0.1 x10E3/uL (0.0-0.2) 05/10/24 15:58 Monocyte Dist Width 19.33 % (0.00-20.00) 05/10/24 15:58 PHA Creatinine Clear 51.63 05/10/24 15:58 Sodium 138 mmol/L (136-145) 05/10/24 15:58 Potassium 3.9 mmol/L (3.5-5.1) 05/10/24 15:58 Chloride 104 mmol/L (98-107) 05/10/24 15:58 Carbon Dioxide 25.5 mmol/L (21.0-31.0) 05/10/24 15:58 Anion Gap 12.4 mEq/L (6.0-15.0) 05/10/24 15:58 BUN 8 mg/dL (7-25) 05/10/24 15:58 Creatinine 0.70 mg/dL (0.60-1.20) 05/10/24 15:58 Est GFR (CKD-EPI) > 60.0 mL/Min 05/10/24 15:58 Glucose 85 mg/dL (70-100) 05/10/24 15:58 POC Glucose 84 mg/dl 05/10/24 15:56 Calcium 9.6 mg/dL (8.6-10.3) 05/10/24 15:58 Total Bilirubin 0.3 mg/dl (0.3-1.0) 05/10/24 15:58 AST 20 U/L (13-39) 05/10/24 15:58 ALT 15 U/L (7-52) 05/10/24 15:58 Alkaline Phosphatase 112 U/L (34-104) H 05/10/24 15:58 Ammonia 14 umol/L (11-35) 05/10/24 19:12 Total Creatine Kinase 34 U/L (30-223) 05/10/24 15:58 Troponin I High Sens 3.5 pg/mL (0.0-15.0) 05/10/24 18:59 Total Protein 7.6 gm/dL (6.4-8.9) 05/10/24 15:58 Albumin 4.2 gm/dL (3.5-5.7) 05/10/24 15:58 Globulin 3.4 gm/dL 05/10/24 15:58 Albumin/Globulin Ratio 1.2 05/10/24 15:58 Urine Color Colorless (Yellow) 05/10/24 18:07 Urine Appearance Clear (Clear) 05/10/24 18:07 Urine pH 6.5 (5.0-9.0) 05/10/24 18:07 Ur Specific [place] 1.004 (1.001-1.030) 05/10/24 18:07 Urine Protein Negative mg/dL (Negative) 05/10/24 18:07 Urine Glucose (UA) 300 mg/dL (Normal) H 05/10/24 18:07 Urine Ketones Negative (Negative) 05/10/24 18:07 Urine Occult Blood Negative (Negative) 05/10/24 18:07 Urine Nitrite Negative (Negative) 05/10/24 18:07 Urine Bilirubin Negative (Negative) 05/10/24 18:07 Urine Urobilinogen Normal mg/dL (Normal) 05/10/24 18:07 Ur Leukocyte Esterase 2+ (Negative) H 05/10/24 18:07 Urine RBC None seen /HPF (0-4) 05/10/24 18:07 Urine WBC 10-19 /HPF (0-4) H 05/10/24 18:07 Ur Squamous Epith Cells N/A 05/10/24 18:07 Urine Bacteria Rare /HPF (None Seen) 05/10/24 18:07 Hyaline Casts None /LPF (0-8) 05/10/24 18:07 Urine Mucus Rare /LPF 05/10/24 18:07 Assessment & Plan Assessment/Plan (1) AMS (altered mental status): (2) Bradycardia: (3) Light-headed: (4) UTI (urinary tract infection): (5) Tobacco dependence: (6) Diabetes: (7) Hypertension: (8) COPD (chronic obstructive pulmonary disease): Plan Altered mental status ? B12, TSH in a.m. Bradycardia Lightheadedness ? Monitor telemetry ? Will decrease Toprol dose to 50 mg daily ? Orthostatic pressures and pulses UTI?rare amount of bacteria noted on UA, 2+ leukocytes, patient reports dysuria ? Patient received 1 g ceftriaxone in ER ? Continue ceftriaxone ? Follow culture Tobacco dependence?encouraged abstinence ? Tobacco cessation ? Nicotine patch daily Chronic conditions?resume home meds as appropriate T2DM?fingersticks ACHS, SSI C, glimepiride, hold metformin HTN?decrease dose of metoprolol HLD?atorvastatin Depression?paroxetine Chronic pain?gabapentin?OARRS report checked COPD?albuterol as needed DVT PPx?SCDs, heparin Diet order?1800 ADA CODE STATUS?full code IP vs OBS Justification Based on differential dx, clinical care plan, and risk of adverse events, if untreated, in my clinical judgement this patient requires an acute care setting as: INPATIENT because of an expectation of an over 2 midnight stay. Estimated length of stay (# of days): 3 <Statement entered by Tahir Amin MD - 05/11/24 01:42> Reviewed and agree with the assessment and plan of Mame Enriquez [employer] Documented By: Mame Enriquez APRN 05/10/24 0062 Signed By: <Electronically signed by ANTHONY Enriquez> 05/11/24 0113 <Electronically signed by Tahir Amin MD> 05/11/24 0142 [facility] Work Phone: Hospital Discharge instructions Additional Instructions Use incentive spirometer hourly as discussed. Apply ice to affected areas including your neck and rib region Follow-up with your PCP on Tuesday or Tuesday to discuss outpatient follow-up of a CT scan EMPHYSEMATOUS CHANGES INVOLVING THE LUNG APICES WITH NODULES INVOLVING THE RIGHT LUNG APEX, LARGEST MEASURING 6 MM. Avoid smoking [place] for severe pain You cannot work or drive when taking [place] Tylenol if needed for minor pain Please return here if you Develop any increased shortness of breath, fevers, chills, chest pain, abdominal pain, back pain or any other concerns You have a urine culture that is pending. When you see your PCP follow-up on urine culture resultsR[facility] Work Phone: Hospital Discharge instructions Additional Instructions Stop Diazepam (Valium), take Melatonin 5mg nightly for sleep if need (available over the counter) Gabapentin (Neurontin) has been reduced due to dizziness You are on multiple medications that can contribute to dizziness and places you at risk for falls Stop Metoprololl (Toprol). Losartan (Cozaar) has been initiated in place of this for blood pressure controlRiverview Health Institute Work Phone: Hospital Discharge instructions* Attachments The following attachments cannot be sent through Care Everywhere. * Ultrasound: Endoscopic (Oral): Post-op (Lithuanian) * Biopsy: Fine Needle (Lithuanian) [facility] Additional Instructions Please return if you change your mind or have worsening symptoms you have an elevated white count likely an infection that is causing the respiratory symptoms and low blood pressure You will need to be admitted to the hospital for IV antibiotics if you change your mind please come back immediatelyRiverview [facility] Institute Work Phone: Hospital Discharge instructions* Attachments The following attachments cannot be sent through Care Everywhere. * RAD (Reactive Airway Disease) (Lithuanian) * Influenza (Lithuanian) [facility] Author Tomi Sandra [facility] April 03, 2024 9:39am Note Date/Time April 03, 2024 8:52am [facility] [place] [address] Cancer Center Note Signed Patient: Kym Briscoe MR#: [id number] : 1955 Acct:[id number] Age/Sex: 68 / F Type: REG AMB Date of Service: 04/03/24 Copies to: YUAN Nava~ Assessment & Plan A/P (1) Lung nodule: Plan refer to dr mary nails refer to pulmonology. has appt this afternoon f/u 1 month. me please no labs or imaging. make sure we have records from above appts. CHEMO PLAN No Active Chemotherapy History of Present Illness HPI 68-year-old female referred for pulmonary nodule. Past medical history includeshypertension, hyperlipidemia, type 2 diabetes, depression/anxiety, chronic dizziness COPD, chronic smoking atrial fibrillation. Patient is still a chronic every day smoker. She follows with [facility] Vicky Hawkins locally. Outpatient medications include glimepiride, gabapentin, meclizine, benzoate, metformin, metoprolol, Paxil, atorvastatin, albuterol, diazepam. After a fall she had a CAT scan done in October 2023. She was seen in our emergency room here and [facility] on October 22, 2023. CT of the head with no acute. CT of the C-spine with no acute. Chest x-ray showedno acute findings. A CT of the chest did not was emphysematous changes involving the lung came disease with nodules involving the right apex up to [address] of the chest was suggested. She was encouraged to follow-up with her PCP for CT of the chest. CT of the chest in November 2023 showed obstructive lung disease, irregular nodular asymmetries, 3 mm right apical, 2 mm right major/minor fissure junction, 6 mm medial left lower infrahilar, nodules. Right fourth fifth and sixth rib fractures healing. Repeat CT performed in March 02 2024 for reevaluation of pulmonary nodularity increase in size of the left infrahilar nodule from 6 mm to 1 cm, several additional tiny irregular and nodular areas bilaterally have remained stable. There is a large left renal cyst which is partially imaged. Follow-up PET/CT was performed on March 23, 2024 which notes FDG avid pleuralPorto/portacaval lymph nodes suspicious for local metastatic disease. Abnormal activity in the pancreatic neck suspicious for underlying pancreatic lesion, dominant nodule in the left lower lobe that is FDG avid and suspicious for metastatic disease. Additional smaller nodules are too small for PET/CT characterization. Diffuse colonic activity likely related to metformin use. She does get short of breath when she goes up an entire flight of stairs. She gets short of breath when she walks across a parking lot. ASSESSMENT/PLAN Lung nodule - will refer for EBUS. Has appt with Dr. Herrera this afternoon. Pancreatic hypermetabolism with some surrounding minimally fdg avid adenopathy. will refer to contract associate capable of ERCP, EUS and biopsy to determine ifthis is necessary. advised to stop smoking. PHYSICAL EXAMINATION ECOG PS:2 General : patient is alert and oriented to person place and time, no acute distress. Neck: no JVD or thyromegaly. Lymph: no cervical, supraclavicular, axillary adenopathy. Heart: regular rate and rhythm no murmurs rubs or gallops. Abdomen: soft, nontender,, nondistended, no hepatosplenomegaly. Lungs: distant bilateral, soft crackles but otherwise clear to auscultation bilaterally. Extremities: no clubbing cyanosis Intake Vitals/Pain Assessment 04/03/24 08:54 Height 4 ft 11 in Weight 54.431 kg BMI 24.2 Body Fat % 39.79 BP 103/64 Blood Pressure Location Rt brachial Position Sitting Temp 98.1 F Temp Source Temporal Pulse 55 L Pulse Source NIBP Respiration 20 Pulse Oximetry (%) 95 Oxygen Delivery Method room air Are you having pain? No Intake Visit Reasons: NEW Pulmonary nodule Accompanied by: Daughter Allergies codeine Allergy (Verified 04/03/24 08:54) Unknown Reaction Gadolinium-Containing Contrast Medi [From Contrast Media] Allergy (Verified 04/03/24 08:54) Itching Iodinated Contrast Media [From Contrast Media] Allergy (Verified 04/03/24 08:54) Itching Gastrointestinal Is the patient taking opioids for pain control?: Yes Bowel Protocol for Opioids Given: Yes Bowel Pattern: Diarrhea Falls Fall Precaution Measures Taken: Patient in chair Nurse's Note: Patient is referred by Vicky Oshea for pulmonary nodule. Had CT chest 03/02/24 and PET 03/23/2024. [facility] Medical History Medical History (Updated 04/03/24 @ 09:38 by Tomi Sandra II, DO) Lung nodule Emphysema of lung Diabetes COPD (chronic obstructive pulmonary disease) Hypercholesteremia Hypertension Surgical History Surgical History (Updated 02/15/24 @ 10:15 by Reymundo Holland [facility]) Hx of colonoscopy History of section, classical Family History Family History (Updated 04/03/24 @ 09:01 by Whit Ibarra) Father Lung cancer Mother No problems noted. Brother Lung cancer Daughter Lung cancer Social History Social History (Updated 04/03/24 @ 09:02 by Whit Ibarra) Smoking status: Current every day smoker What tobacco products do you use: cigarettes Nicotine containing products detail: chain smoker Within the past year, how often did you have a drink containing alcohol: 4 or more times a week Within the past year, how many standard drinks containing alcohol did you have on a typical day: 1 or 2 AUDIT-C Alcohol score interpretation: A score less than 3 is consistent with normal alcohol consumption. In the past 12 months, have you used illegal drugs or prescription drugs for non-medical reasons?: No Results - [facility] (Med Onc) LAB RESULTS No Data to Display Dictated By: Tomi Sandra II, DO DD/ 0851 Signed By: <Electronically signed by Tomi Sandra II, DO> 04/03/24 0939 [facility] Work Phone: Chief Complaint and Reason for Visit Chief Complaint sob Diabetes Diabetes;Mixed hyperlipidemia Chief Complaint sob E11.9 E78.2 back pain, neck pain due to fall, chest pain, cou Chief Complaint sob E11.9 E78.2 back pain, neck pain due to fall, chest pain, cou R91.1 Chief Complaint R91.1 E11.9 I10 E11.9 E78.2 Chief Complaint R91.1 E11.9 I10 E11.9 E78.2 z87.81 m54.2 m54.6 sore throat Reason for Visit Sore throat Chief Complaint I10 E11.9 E78.2 z87.81 m54.2 m54.6 sore throat R91.1 Reason for Visit Oral thrush Sore throat Chief Complaint I10 E11.9 E78.2 z87.81 m54.2 m54.6 sore throat R91.1 R91.1 Reason for Visit Oral thrush Sore throat Chief Complaint I10 E11.9 E78.2 z87.81 m54.2 m54.6 sore throat R91.1 R91.1 NEW Pulmonary nodule Pulmonary nodule Reason for Visit Oral thrush Sore throat Lung nodule Chief Complaint I10 E11.9 E78.2 z87.81 m54.2 m54.6 sore throat R91.1 R91.1 NEW Pulmonary nodule Pulmonary nodule Ref: Vicky Oshea GRAPPLE YARDER OPERATOR- Pulmonary Nodule Reason for Visit Oral thrush Sore throat Lung nodule Chief Complaint I10 E11.9 E78.2 z87.81 m54.2 m54.6 sore throat R91.1 R91.1 NEW Pulmonary nodule Pulmonary nodule Ref: Vicky Oshea GRAPPLE YARDER OPERATOR- Pulmonary Nodule K86.9 C77.9 R94.8 R26.0 R27.0 R41.0 Reason for Visit Oral thrush Sore throat Lung nodule Chain smoker Lung nodule Pancreas neoplasm Chief Complaint I10 E11.9 E78.2 z87.81 m54.2 m54.6 sore throat R91.1 R91.1 NEW Pulmonary nodule Pulmonary nodule Ref: Vicky Velazquezc GRAPPLE YARDER OPERATOR- Pulmonary Nodule K86.9 C77.9 R94.8 R26.0 [address] Reason for Visit Oral thrush Sore throat Lung nodule Chain smoker Lung nodule Pancreas neoplasm Chief Complaint sore throat R91.1 R91.1 NEW Pulmonary nodule Pulmonary nodule Ref: Vicky Velazquezc GRAPPLE YARDER OPERATOR- Pulmonary Nodule K86.9 C77.9 R94.8 R26.0 [address] sent by , confusion, uti symptoms Reason for Visit Oral thrush Sore throat Lung nodule Chain smoker Lung nodule Pancreas neoplasm AMS (altered mental status) Bradycardia COPD (chronic obstructive pulmonary disease) Diabetes Hypertension Light-headed Tobacco dependence UTI (urinary tract infection) Chief Complaint sore throat R91.1 R91.1 NEW Pulmonary nodule Pulmonary nodule Ref: Vicky Dorie GRAPPLE YARDER OPERATOR- Pulmonary Nodule K86.9 C77.9 R94.8 R26.0 [address] sent by dylan jean-baptiste, uti symptoms Reason for Visit Oral thrush Sore throat Lung nodule Chain smoker Lung nodule Pancreas neoplasm AMS (altered mental status) Bradycardia COPD (chronic obstructive pulmonary disease) Diabetes Hypertension Light-headed Tobacco dependence UTI (urinary tract infection) Vitamin D deficiency Chief Complaint Admit Date R91.1 March 23, 2024 10:31am NEW Pulmonary nodule April 03 8:44am Pulmonary nodule April 03, 2024 8:45am Ref: Vicky Dorie GRAPPLE YARDER OPERATOR- Pulmonary Nodule S eptember 2023 10:44am K86.9 C77.9 R94.8 R26.0 R27.0 R41.0 Sept emb2023 7:29pm abnormal ct April 25, 2024 11 :11am abnormal ct April 25, 2024 12 :39pm sent by dylan jean-baptiste, uti symptoms 2023 9:57pm as of 05/11--she is inpt May 25, 024 2:27pm Reason for Visit Admit Date Lung nodule April 03, 2024 8:44am Chain smoker April 03, 2024 10:44am Lung nodule April 03, 2024 10:44am Pancreas neoplasm April 03, 2024 10:44am Bradycardia May 10, 2024 9 :57pm COPD (chronic obstructive pulmonary dise ase) May 10, 2024 9:57pm Diabetes May 10, 2024 9 :57pm Hypertension May 10, 2024 9 :57pm Tobacco dependence May 10, 2024 9 :57pm Vitamin D deficiency May 10, 2024 9:57pm AMS (altered mental status) April 9:57pm Light-headed May 10, 2024 9 :57pm UTI (urinary tract infection) May 102023 9:57pm Chief Complaint Admit Date sent by dylan jean-baptiste, uti symptoms 2023 9:57pm as of 05/11--she is inpt May 25, 2 024 2:27pm K86.9 June 05, 2024 3:01pm R74.8 June 20, 2024 8 :56am Follow Up after CT July 23, 2024 12 :48pm Pulmonary nodule July 23, 2024 12 :49pm Reason for Visit Admit Date Bradycardia May 10, 2024 9 :57pm COPD (chronic obstructive pulmonary dise ase) May 10, 2024 9:57pm Diabetes May 10, 2024 9 :57pm Hypertension May 10, 2024 9 :57pm Tobacco dependence May 10, 2024 9 :57pm Vitamin D deficiency May 10, 2024 9:57pm AMS (altered mental status) April 9:57pm Light-headed May 10, 2024 9 :57pm UTI (urinary tract infection) May 102023 9:57pm Chief Complaint Admit Date K86.9 June 05, 2024 3:01pm R74.8 June 20, 2024 8 :56am R91.1 July 19, 2024 9: 11pm Follow Up after CT July 23, 2024 12 :48pm Pulmonary nodule July 23, 2024 12 :49pm Hypoxia August 28, 2024 9:15am Chief Complaint Admit Date R74.8 June 20, 2024 8 :56am R91.1 July 19, 2024 9: 11pm Follow Up after CT July 23, 2024 12 :48pm Pulmonary nodule July 23, 2024 12 :49pm Hypoxia August 28, 2024 9:15am Chief Complaint Admit Date R91.1 July 19, 2024 9: 11pm Follow Up after CT July 23, 2024 12 :48pm Pulmonary nodule July 23, 2024 12 :49pm Hypoxia August 28, 2024 9:15am E78.2 I10 C34.90 Z87.01 September 11 12:39pm Advance Directives No Advanced Directives Records Found Advance Directive Response Recorded Date/ Time Advance Directives No September 26 7:29pm Date Activated Date Inactivated Comments 05/17/2024 6:37 AM Advance Directive Response Recorded Date/ Time Advance Directives No September 26 6:29pm Date Activated Date Inactivated Comments 08/28/2024 3:42 PM Date Activated Date Inactivated Comments 05/17/2024 6:37 AM 05/17/2024 11:51 AM Date Activated Date Inactivated Comments 08/28/2024 3:42 PM 09/03/2024 8:07 PM Date Activated Date Inactivated Comments 05/17/2024 6:37 AM 05/17/2024 11:51 AM Family History No Family History Records Found Relationship Condition Age at Onset Recorded Date/T fidel father Malignant neoplasm of lung Unknown brother Malignant neoplasm of lung Unknown daughter Malignant neoplasm of lung Unknown Relationship Condition Age at Onset Recorded Date/T fidel father Malignant neoplasm of lung Unknown mother Myocardial infarction Unknown brother Malignant neoplasm of lung Unknown daughter Malignant neoplasm of lung Unknown sister Diabetes mellitus Unknown Summary Purpose Reason for Referral Specialty Diagnoses / Procedures Referred By Contac t Referred To Contact Pulmonology Diagnoses Community acquired pneumonia, unspecified laterality COPD exacerbation ([place]) [place] [address] [place], [place] [address] [address] Referral ID Status Reason Start Date Expiration Date V isits Requested Visits Authorized [id number] Open Specialty Services Required 09/03/2024 03/02/2025 1 1 Question Answer Reason For External Referral? Location - Ro My clinical question is: COPD, on oxygen Comments The patient can be scheduled with any member of the group, including the provider with the first available appointments. Specialty Diagnoses / Procedures Referred By Contac t Referred To Contact Cardiology Diagnoses Congestive heart failure, unspecified HF chronicity, unspecified heart failure type (HCC) Wilma Domingo MD [address] [facility] [place] [address] Referral ID Status Reason Start Date Expiration Date V isits Requested Visits Authorized [id number] Open Specialty Services Required 09/03/2024 03/02/2025 1 1 Question Answer Reason For External Referral? Jd Rondon My clinical question is: [facility] Additional Source Comments Care Teams (unrecognized sec tion and content) Team Status: Inactive Member Role Status Dates PHYSICIAN NO FAMILY Primary Care Provider Active Start: September 27, 2023 End: September 27, 2023 Katelyn Bartholomew APRN Emergency Provider Active Start: September 27, 2023 End: September 27, 2023 Team Status: Inactive Member Role Status Dates YUAN Nava Attending Provider Active Start: October 04, 2023 End: October 04, 2023 Team Status: Active Member Role Status Dates Vicky Oshea , GRAPPLE YARDER OPERATOR-C Primary Care Provider Active Team Status: Inactive Member Role Status Dates Katelyn Bartholomew APRN Emergency Provider Active Start: October 22, 2023 End: October 22, 2023 Vicky E Marcusc , GRAPPLE YARDER OPERATOR-C Primary Care Provider Active Start: October 22, 2023 End: October 22, 2023 Team Status: Inactive Member Role Status Dates Vicky Enrique Velazquezc , GRAPPLE YARDER OPERATOR-C Primary Care Provi chinyere, Attending Provider Active Start: November 21, 2023 End: November 21, 2023 Team Status: Inactive Member Role Status Dates Vicky Mcbridesic , GRAPPLE YARDER OPERATOR-C Primary Care Provi chinyere, Attending Provider Active Start: November 24, 2023 End: November 24, 2023 Team Status: Inactive Member Role Status Dates Vicky Enrique Velazquezc , GRAPPLE YARDER OPERATOR-C Attending Provider Active Start: February 09, 2024 End: February 09, 2024 Team Status: Active Member Role Status Dates PHYSICIAN NO FAMILY Primary Care Provider Active Team Status: Inactive Member Role Status Dates Vicky Oshea , GRAPPLE YARDER OPERATOR-C Attending Provider Active Start: February 10, 2024 End: February 10, 2024 Team Status: Inactive Member Role Status Dates Kaycee Negro APRN Attending Provider Active S tart: February 15, 2024 End: February 15, 2024 PHYSICIAN NO FAMILY Primary Care Provider Active Start: February 15, 2024 End: February 15, 2024 Team Status: Inactive Member Role Status Dates Kaycee ALFORD APRN Attending Provider Active Start: February 15, 2024 End: February 15, 2024 PHYSICIAN NO FAMILY Primary Care Provider Active Start: February 15, 2024 End: February 15, 2024 Team Status: Inactive Member Role Status Dates Vicky Oshea , GRAPPLE YARDER OPERATOR-C Primary Care Provi chinyere, Attending Provider Active Start: March 02, 2024 End: March 02, 2024 Team Status: Inactive Member Role Status Dates Vicky Enrique Mcbridesic , GRAPPLE YARDER OPERATOR-C Primary Care Provi chinyere, Attending Provider Active Start: March 23, 2024 End: March 23, 2024 Team Status: Inactive Member Role Status Dates Vicky Enrique Mcbridesic , GRAPPLE YARDER OPERATOR-C Primary Care Provi chinyere, Referring Provider Active Start: April 03, 2024 End: April 03, 2024 Tomi Sandra II, DO Attending Provider Active Start: April 03, 2024 End: April 03, 2024 Team Status: Active Member Role Status Dates Vicky Oshea , GRAPPLE YARDER OPERATOR-C Primary Care Provi chinyere, Referring Provider Active Start: April 03, 2024 Tomi Sandra II, DO Attending Provider Active Start: April 03, 2024 Team Status: Inactive Member Role Status Dates Vicky Oshea , GRAPPLE YARDER OPERATOR-C Primary Care Provider Active Start: April 03, 2024 End: April 03, 2024 Jimmie Laboy DO Active Start: Asher bowers 2023 End: April 03, 2024 Lebron Herrera MD Attending Provider Active Start: April 03, 2024 End: April 03, 2024 Team Status: Inactive Member Role Status Dates Vicky Oshea , GRAPPLE YARDER OPERATOR-C Primary Care Provi chinyere, Attending Provider Active Start: April 12, 2024 End: April 12, 2024 Team Status: Active Member Role Status Dates Vicky Oshea , GRAPPLE YARDER OPERATOR-C Primary Care Provider Active Start: March 29, 2024 Azar Irwin DO Attending Provider Active Sta rt: March 29, 2024 Team Status: Inactive Member Role Status Dates Vicky Oshea , GRAPPLE YARDER OPERATOR-C Primary Care Provider Active Start: April 25, 2024 End: April 25, 2024 Ragini Adams DO Attending Provider Active St art: April 25, 2024 End: April 25, 2024 Team Status: Active Member Role Status Dates Vicky Oshea , GRAPPLE YARDER OPERATOR-C Primary Care Provider Active Start: April 25, 2024 Ragini Adams DO Attending Provider, Other Provider Active Start: April 25, 2024 Team Status: Active Member Role Status Dates Vicky Oshea , GRAPPLE YARDER OPERATOR-C Primary Care Provider Active Start: May 10, 2024 Katelyn Bartholomew APRN Emergency Provider Active Start: May 10, 2024 Tahir Amin MD Admit Provider, Attending Provider Active Start: May 10, 2024 Team Status: Inactive Member Role Status Dates Vicky Oshea , GRAPPLE YARDER OPERATOR-C Primary Care Provider Active Start: May 10, 2024 End: May 12, 2024 Katelyn Bartholomew APRN Emergency Provider Active Start: May 10, 2024 End: May 12, 2024 Tahir Amin MD Admit Provider Active Start: May 10, 2024 End: May 12, 2024 Fidencio Alvarez MD Attending Provider Active Start : May 10, 2024 End: May 12, 2024 Central Office Equipment Installer Relationship Specialty Start Date End Date Tomi Sandra II, MD [address] [place] [address] PCP - General Internal Medicine 04/05/24 Team Status: Inactive Member Role Status Dates Vicky Oshea , GRAPPLE YARDER OPERATOR-C Primary Care Provider Active Start: May 25, 2024 End: May 25, 2024 Tomi Sandra II, DO Attending Provider Active Start: May 25, 2024 End: May 25, 2024 Team Status: Inactive Member Role Status Dates Vicky Oshea , GRAPPLE YARDER OPERATOR-C Primary Care Provi chinyere, Attending Provider Active Start: June 05, 2024 End: June 05, 2024 Central Office Equipment Installer Relationship Specialty Start Date End Date Polo Bosch MD [address] [place] [address] PCP - General Family Medicine 04/24/24 Team Status: Active Member Role Status Dates Vicky Oshea , GRAPPLE YARDER OPERATOR-C Primary Care Provider Active Start: May 21, 2024 Azar Irwin DO Attending Provider Active Sta rt: May 21, 2024 Team Status: Inactive Member Role Status Dates Vicky Oshea , GRAPPLE YARDER OPERATOR-C Primary Care Provi chinyere, Referring Provider Active Start: June 05, 2024 End: June 05, 2024 Robert Cuevas DO Attending Provider Active Start: June 05, 2024 End: June 05, 2024 Team Status: Inactive Member Role Status Dates Vicky Oshea , GRAPPLE YARDER OPERATOR-C Primary Care Provi chinyere, Attending Provider Active Start: June 20, 2024 End: June 20, 2024 Team Status: Inactive Member Role Status Dates Vicky Oshea , GRAPPLE YARDER OPERATOR-C Primary Care Provider Active Start: July 23, 2024 End: July 23, 2024 Tomi Sandra II, DO Attending Provider Active Start: July 23, 2024 End: July 23, 2024 Team Status: Active Member Role Status Dates Vicky Oshea NP-C Primary Care Provi chinyere, Referring Provider Active Start: July 23, 2024 Tomi Sandra II, DO Attending Provider Active Start: July 23, 2024 Team Status: Inactive Member Role Status Dates Vicky Oshea NP-C Primary Care Provider Active Start: July 19, 2024 End: July 19, 2024 Tomi Sandra II, DO Attending Provider Active Start: July 19, 2024 End: July 19, 2024 Team Status: Inactive Member Role Status Dates King Weinberg DO Emergency Provider Active Sta rt: August 28, 2024 End: August 28, 2024 YUAN Nava Primary Care Provider Active Start: August 28, 2024 End: August 28, 2024 Central Office Equipment Installer Relationship Specialty Start Date End Date Tomi Sandra II, MD [address] [place] [id number] PCP - General Internal Medicine 04/05/24 Central Office Equipment Installer Relationship Specialty Start Date End Date Vicky Oshea APRN - RESTORATION OFFICER [address] [place] [id number] PCP - General Nurse Practitioner, [facility] 09/05/24 Team Status: Inactive Member Role Status Dates YUAN Nava Attending Provider Active Start: September 11, 2024 End: September 11, 2024 Team Status: Inactive Member Role Status Dates Vicky Oshea NP-C Attending Provider Active Start: September 11, 2024 End: September 11, 2024 Services [facility] Primary Care Provider Ac tive Start: September 11, 2024 End: September 11, 2024 Team Status: Inactive Member Role Status Dates Vicky Oshea NP-C Attending Provider Active Start: September 18, 2024 End: September 18, 2024 Goals (unrecognized section and content) Goals may be documented in a n alternate sectionGoals may be documented in an alternate sectionGoals may be documented in an alternate sectionGoals may be documented in an alternate sectionGoals may be documented in an alternate sectionGoals may be documented in an alternate sectionGoals may be documented in an alternate sectionGoals may be documented in an alternate sectionGoals may be documented in an alternate sectionGoals may be documented in an alternate sectionGoals may be documented in an alternate sectionGoals may be documented in an alternate sectionGoals may be documented in an alternate sectionGoals may be documented in an alternate section Reason for Visit (unrecogniz ed section and content) Specialty Diagnoses / Procedures Referred By Contac t Referred To Contact Diagnoses Abnormal gastrointestinal PET scan Abnormal gastrointestinal PET scan [R94.8] Procedures CHG GI ENDOSCOPIC US S&I ENDOSCOPIC ULTRASOUND +/- FNB Mary Ford MD [address] [place] [address] [facility] [address] [place] [address] Referral ID Status Reason Start Date Expiration Date Visits Re quested Visits Authorized [id number] 1 1 Reason Comments Shortness of Breath Fatigue Headache Cough Specialty Diagnoses / Procedures Referred By Contac t Referred To Contact Diagnoses Pneumonia due to infectious agent Rusty Mcghee MD [facility] [place] [address] [facility] [address] [place] [address] Referral ID Status Reason Start Date Expiration Date Visits Re quested Visits Authorized [id number] 1 1 Reason Comments Chest Pain Scheduled Active and Recently Administ ered Medications (unrecognized section and content) Medication Order 05/15/2024 05/16/2024 05/17/2024 sodium chloride flush 0.9 % injection 5-40 mL 5-40 mL, IntraVENous, EVERY 12 HOURS SCHEDULED (2 times per day), First dose on Seble 05/17/24 at 0900, Until Discontinued, For Line Patency: Peripheral IV = 5 mL; Midline or Central Line = 10 mL/lumen. If following IV push medication, administer flush at same rate as the IV push. Flush volume is determined by type of infusion therapy being given. For non-viscous solutions use: Peripheral IV = 5 mL Midline or Central Line = 10 mL/lumen For viscous solutions (i.e. blood components, parenteral nutrition, contrast media, or after obtaining blood sample) use: Peripheral IV = 10 mL Midline or Central Line = 20 mL/lumen, Pre-procedure(GI) 0900 (Due)2100 (Due) Continuous Medication Order 05/15/2024 05/16/2024 05/17/2024 0.9 % sodium chloride infusion IntraVENous, at 75 mL/hr, CONTINUOUS, Starting on Seble 05/17/24 at 0700, Pre-procedure(GI) 0700 (Due) PRN Medication Order 05/15/2024 05/16/2024 05/17/2024 0.9 % sodium chloride infusion IntraVENous, at 100 mL/hr, PRN, If patient receiving piggyback infusions without ordered maintenance IV fluids or with frequent/long duration piggyback infusions, Starting on Seble 05/17/24 at 0637, Administer at the same rate as the piggyback being infused., Pre-procedure(GI) sodium chloride flush 0.9 % injection 5-40 mL 5-40 mL, IntraVENous, PRN, Starting on Seble 05/17/24 at 0637, Until Discontinued, Line Care, After every IV line use, For Line Patency: Peripheral IV = 5 mL; Midline or Central Line = 10 mL/lumen. If following IV push medication, administer flush at same rate as the IV push. Flush volume is determined by type of infusion therapy being given. For non-viscous solutions use: Peripheral IV = 5 mL Midline or Central Line = 10 mL/lumen For viscous solutions (i.e. blood components, parenteral nutrition, contrast media, or after obtaining blood sample) use: Peripheral IV = 10 mL Midline or Central Line = 20 mL/lumen, Pre-procedure(GI) sterile water for irrigation (CANCELED) PRN, Starting on Seble 05/17/24 at 0755, Intra-op 0755 (Given - Provid er: Mary Ford MD - Comment: Dilution with GI Ease solution.Dose approximate and administered per md) Scheduled Medication Order 09/01/2024 09/02/2024 09/03/2024 albuterol (PROVENTIL) (2.5 MG/3ML) 0.083% nebulizer solution 2.5 mg 2.5 mg, Nebulization, 4 TIMES DAILY RESP, First dose on Tue08/28/24 at 1999, Until Discontinued, Initiate RT Bronchodilator Protocol: Yes - Inpatient Protocol 0758 (Given - Provider: Vinod Edward RCP)1127 (Given - Provider: Vinod Edward RCP)1524 (Given - Provider: Martinez Rueda RCP)2008 (Given - Provider: Cindy Nix RCP) 0721 (Given - Provider: Vinod Edward RCP)1104 (Given - Provider: Vinod Edward RCP)1455 (Given - Provider: Martinez Rueda RCP)1950 (Given - Provider: Víctor Castellon RCP) 0849 (Not Given - Provider: Hunter Kelly RCP - Reason: Patient not available - Comment: [phone])1038 (Given - Provider: Hunter Kelly RCP)1627 (Given - Provider: Gila Álvarez RCP)1999 (Due) atorvastatin (LIPITOR) tablet 40 mg 40 mg, Oral, NIGHTLY, First dose on Tue08/28/24 at 2100, Until Discontinued 2040 (Given - Provider: Yesika Sprague RN) 2224 (Given - Provider: Yuki Chapin RN) 2100 (Due) budesonide-formoterol (SYMBICORT) 160-4.5 MCG/ACT inhaler 2 puff(Linked Group 1) 2 puff, Inhalation, 2 TIMES DAILY RESP, First dose on Tue08/28/24 at 1999, Until Discontinued 0758 (Given - Provider: Vinod Edward RCP)2008 (Given - Provider: Cindy Nix RCP) 0721 (Given - Provider: Vinod Edward RCP)195 (Given - Provider: Víctor Castellon RCP) 0849 (Not Given - Provider: Hunter Kelly RCP - Reason: Patient not available - Comment: x4)1999 (Due) bumetanide (BUMEX) tablet 1 mg 1 mg, Oral, DAILY, First dose on Tue09/02/24 at 0900, Until Discontinued 0738 (Given - Provider: Angie Champagne RN) 0941 (Given - Provider: Nicole Quiros RN) cefTRIAXone (ROCEPHIN) 1,000 mg in sterile water 10 mL IV syringe (COMPLETED) 1,000 mg, IntraVENous, EVERY 24 HOURS, First dose on Tue08/29/24 at 1200, For 4 days, Administer as slow IV Push over 5 mins Reconstitute 1 g vials with 9.6 mL of designated diluent to produce a 100 mg/mL solution. 1140 (Given - Provider: Chery Abel, CARRI) donepezil (ARICEPT) tablet 10 mg 10 mg, Oral, NIGHTLY, First dose on Tue08/28/24 at 2100, Until Discontinued 2040 (Given - Provider: Yesika Sprague RN) 2223 (Given - Provider: Yuki Chapin, RN) 2100 (Due) enoxaparin (LOVENOX) injection 40 mg 40 mg, SubCUTAneous, DAILY, First dose on Tue09/03/24 at 0900, Until Discontinued, Indication of Use: Prophylaxis-DVT/PE, Administer by deep subCUTAneous injection with pt lying down. Alternate injection sites on abdominal wall. Do not rub site after injection. Check with provider prior to any invasive procedure. 0939 (Given - Provider: Nicole Quiros RN) furosemide (LASIX) injection 40 mg (COMPLETED) 40 mg, IntraVENous, ONCE, 1 dose, On Tue09/01/24 at 1030 1050 (Given - Provider: Chery Abel RN) heparin (porcine) injection 5,000 Units (COMPLETED) 5,000 Units, SubCUTAneous, EVERY 8 HOURS SCHEDULED (3 times per day), 17 doses, First dose on Tue08/28/24 at 1600, Last dose on Tue09/02/24 at 2200, DVT Prophylaxis 0517 (Given - Provider: Josselyn Matias, CARRI)1400 (Given - Provider: Chery Abel, CARRI)2040 (Given - Provider: Yesika Sprague, CARRI) 0453 (Given - Provider: Yesika Sprague, CARRI)1350 (Given - Provider: Angie Champagne RN)222 (Given - Provider: Yuki Chapin, CARRI) insulin lispro (HUMALOG,ADMELOG) injection vial 0-4 Units 0-4 Units, SubCUTAneous, 4 TIMES DAILY BEFORE MEALS & NIGHTLY, First dose on 2/11/25 at 1700, Until Discontinued, Corrective Low Dose Algorithm Glucose: Dose: 70-179 No Insulin 180-249 1 Unit 250-299 2 Units 300-349 3 Units Over 349 4 Units and notify physician Administer as soon as possible within 60 minutes of last blood glucose check 0741 (Not Given - Provider: Chery Abel RN - Reason: Order parameters not met)1140 (Given - Provider: Chery Abel RN)1623 (Not Given - Provider: Chery Abel RN - Reason: Order parameters not met)2038 (Given - Provider: Yesika Sprague RN - Comment: B) 0650 (Not Given - Provider: Angie Champagne RN - Reason: Order parameters not met)1058 (Not Given - Provider: Angie Champagne RN - Reason: Order parameters not met)1624 (Not Given - Provider: Angie Champagne RN - Reason: Order parameters not met - Comment: bs 141)2318 (Not Given - Provider: Yuki Chapin RN - Reason: Order parameters not met - Comment: bs 159) 0646 (Not Given - Provider: Yuki Chapni RN - Reason: Order parameters not met - Comment: bs 129)1204 (Not Given - Provider: Nicole Quiros RN - Reason: Order parameters not met)1634 (Not Given - Provider: Eliza Kay RN - Reason: Patient/family refused)2100 (Due) isosorbide mononitrate (IMDUR) extended release tablet 30 mg 30 mg, Oral, DAILY, First dose on Tue08/31/24 at 1015, Until Discontinued, Do not crush or chew. 0752 (Given - Provider: Chery Abel RN) 0738 (Given - Provider: Angie Champagne RN) 0939 (Given - Provider: Nicole Quiros RN) losartan (COZAAR) tablet 25 mg (CANCELED) 25 mg, Oral, DAILY, First dose on Tue08/31/24 at 1015, Until Discontinued 0752 (Given - Provider: Chery Abel RN) 0738 (Given - Provider: Angie Champagne RN) losartan (COZAAR) tablet 25 mg (COMPLETED) 25 mg, Oral, Once, 1 dose, On Tue09/03/24 at 0215 0222 (Given - Provider: Yuki Chapin, CARRI) losartan (COZAAR) tablet 25 mg (COMPLETED) 25 mg, Oral, Once, 1 dose, On Tue09/03/24 at 0930 0941 (Given - Provider: Nicole Quiros, CARRI) losartan (COZAAR) tablet 50 mg 50 mg, Oral, DAILY, First dose (after last modification) on Tue09/04/24 at 0900, Until Discontinued methylPREDNISolone sodium succ (SOLU-MEDROL) 40 mg in sterile water 1 mL injection (CANCELED) 40 mg, IntraVENous, EVERY 8 HOURS, First dose (after last modification) on Tue08/31/24 at 1800, Reconstitute each 40 mg vial with 1 mL of diluent. 021 (Given - Provider: Josselyn Matias RN)0925 (Given - Provider: Chery Abel RN) methylPREDNISolone sodium succ (SOLU-MEDROL) 40 mg in sterile water 1 mL injection (CANCELED) 40 mg, IntraVENous, EVERY 12 HOURS, First dose (after last modification) on Tue09/01/24 at 2200, Reconstitute each 40 mg vial with 1 mL of diluent. 2040 (Given - Provider: Yesika Sprague RN) 1058 (Given - Provider: Angie Champagne RN)222 (Given - Provider: Yuki Chapin, CARRI) 0943 (Given - Provider: Nicole Quiros, CARRI) metoprolol succinate (TOPROL XL) extended release tablet 50 mg 50 mg, Oral, DAILY, First dose on Tue08/28/24 at 1600, Until Discontinued, Do not crush or chew. 0846 (Given - Provider: Chery Abel RN) 0738 (Given - Provider: Angie Champagne, CARRI) 0940 (Given - Provider: Nicole Quiros, CARRI) mirtazapine (REMERON) tablet 30 mg 30 mg, Oral, NIGHTLY, First dose on Tue08/28/24 at 2100, Until Discontinued 2040 (Given - Provider: Yesika Sprague RN) 222 (Given - Provider: Yuki Chapin, CARRI) 2100 (Due) nicotine (NICODERM CQ) 21 MG/24HR 1 patch 1 patch, TransDERmal, Administer over 24 Hours, DAILY, First dose on Tue08/28/24 at 1630, Apply new patch to nonhairy, clean, dry skin on the upper body or upper outer arm. Rotate patch sites. Notify pharmacy if patient or provider prefers patch to be removed at bedtime and replaced in the morning. Hazardous Medication -- Refer to facility policy for handling and disposal. 0753 (Patch Removed - Provider: Chery Abel RN)0754 (Patch Applied - Provider: Chery Abel RN) 0737 (Patch Applied - Provider: Angie Champagne RN) 0618 (Patch Removed - Provider: Yuki Chapin, CARRI)0939 (Patch Applied - Provider: Nicole Quiros, CARRI) oseltamivir (TAMIFLU) capsule 75 mg (COMPLETED) 75 mg, Oral, 2 TIMES DAILY, 5 doses, First dose (after last modification) on [place] 08/30/24 at 2100, Last dose on Tue09/01/24 at 2100 0751 (Given - Provider: Chery Abel RN)204 (Given - Provider: Yesika Sprague RN) PARoxetine (PAXIL) tablet 20 mg 20 mg, Oral, DAILY, First dose on Tue08/28/24 at 1600, Until Discontinued 0752 (Given - Provider: Chery Abel RN) 0738 (Given - Provider: Angie Champagne, CARRI) 0940 (Given - Provider: Nicole Quiros, CARRI) potassium chloride (KLOR-CON M) extended release tablet 40 mEq (COMPLETED) 40 mEq, Oral, ONCE, 1 dose, On Tue09/02/24 at 0815, Do not crush or break. Do not crush, chew, or suck on tablet. Tablet may also be broken in half and each half swallowed separately. 0757 (Given - Provider: Angie Champagne RN) predniSONE (DELTASONE) tablet 40 mg 40 mg, Oral, DAILY, 5 doses, First dose on Tue09/03/24 at 2100, Last dose on Tue09/07/24 at 0900 2100 (Due) sodium chloride flush 0.9 % injection 5-40 mL 5-40 mL, IntraVENous, EVERY 12 HOURS SCHEDULED (2 times per day), First dose on Tue08/28/24 at 2100, Until Discontinued, For Line Patency: Peripheral IV = 5 mL; Midline or Central Line = 10 mL/lumen. If following IV push medication, administer flush at same rate as the IV push. Flush volume is determined by type of infusion therapy being given. For non-viscous solutions use: Peripheral IV = 5 mL Midline or Central Line = 10 mL/lumen For viscous solutions (i.e. blood components, parenteral nutrition, contrast media, or after obtaining blood sample) use: Peripheral IV = 10 mL Midline or Central Line = 20 mL/lumen 0753 (Given - Provider: Chery Abel, CARRI)2040 (Given - Provider: Yesika Sprague, RN) 0739 (Given - Provider: Angie Champagne, CARRI)2225 (Given - Provider: Yuki Chapin RN) 0947 (Given - Provider: Nicole Quiros RN)2100 (Due) tiotropium (SPIRIVA RESPIMAT) 2.5 MCG/ACT inhaler 2 puff(Linked Group 1) 2 puff, Inhalation, DAILY RESP, First dose on Tue08/28/24 at 1600, Until Discontinued 0759 (Given - Provider: Vinod Edward RCP) 0721 (Given - Provider: Vinod Edward RCP) 0849 (Not Given - Provider: Hunter Kelly RCP - Reason: Patient not available - Comment: x) PRN Medication Order 09/01/2024 09/02/2024 09/03/2024 0.9 % sodium chloride infusion IntraVENous, at 5-250 mL/hr, PRN, if patient receiving piggyback infusions and maintenance fluids are not ordered, Starting on Tue08/28/24 at 1542, For piggyback infusion, administer at same rate as piggyback for a total of 25 mL. Enter 25 mL into dose field and piggyback rate into rate field of order. If piggyback is infusing at a rate less than 100 mL/hr, enter 25 mL into dose field and 100 mL/hr into rate field of order. acetaminophen (TYLENOL) suppository 650 mg(Linked Group 2) 650 mg, Rectal, EVERY 6 HOURS PRN, Starting on Tue08/28/24 at 1542, Until Discontinued, Pain Mild (1-3), Fever, For temp greater than 100.4 F (38 C), Administer if oral route cannot be used. 0637 (See Alternative - Provider: Josselyn Matias RN)2255 (See Alternative - Provider: Yesika Sprague RN) 2300 (See Alternative - Provider: Yuki Chapin, CARRI) acetaminophen (TYLENOL) tablet 650 mg(Linked Group 2) 650 mg, Oral, EVERY 6 HOURS PRN, Starting on Tue08/28/24 at 1542, Until Discontinued, Pain Mild (1-3), Fever, For temp greater than 100.4 F (38 C), Maximum dose of acetaminophen is 4000 mg from all sources in 24 hours. 0637 (Given - Provider: Josselyn Matias RN)2255 (Given - Provider: Yesika Sprague RN) 2300 (Given - Provider: Yuki Chapin, CARRI) benzonatate (TESSALON) capsule 100 mg 100 mg, Oral, EVERY 4 HOURS PRN, Starting on Tue08/28/24 at 1542, Until Discontinued, Cough, Do not crush or break. 0738 (Given - Provider: Angie Champagne RN) vhrvmbmibg-QMBI-hzkmhooo 50-300-40 MG per capsule 1 capsule (CANCELED) 1 capsule, Oral, EVERY 4 HOURS PRN, Starting on 09/02/24 at 0048, Until 09/02/24 at 0954, Headaches, Do not to exceed 6 capsules daily. Maximum dose of acetaminophen is 4000 mg from all sources in 24 hours., On hold since Tue09/02/2024 at 0740 until manually unheld 0053 (Given - Provider: Yesika Sprague RN)0605 (Given - Provider: Yesika Sprague RN)0740 (Held by provider - Provider: Wilma Domingo MD - Reason: Other)0954 (Unheld by provider - Provider: Wilma Domingo MD) oayvzbrzuo-LXHI-lgrwfafv 50-300-40 MG per capsule 1 capsule (CANCELED) 1 capsule, Oral, EVERY 4 HOURS PRN, Starting on Tue09/03/24 at 0543, Until Tue09/03/24 at 1113, Headaches, Do not to exceed 6 capsules daily. Maximum dose of acetaminophen is 4000 mg from all sources in 24 hours. 0601 (Given - Provider: Yuki Chapin, CARRI) dextrose 10 % infusion IntraVENous, at 100 mL/hr, CONTINUOUS PRN, if blood glucose remains LESS THAN 70 mg/dL after 2 dextrose 10% intravenous boluses or administration of glucagon, Starting on Tue08/28/24 at 1555, If blood glucose fails to stabilize after 2 dextrose 10% intravenous boluses or glucagon administration, start dextrose 10% infusion at 100 mL/hour and repeat blood glucose at 30 and 60 minutes. If blood glucose is GREATER THAN 70 mg/dL after 60 minutes, discontinue dextrose 10% infusion. dextrose bolus 10% 125 mL(Linked Group 3) 125 mL, IntraVENous, at 937.5 mL/hr, Administer over 8 Minutes, PRN, Other, Blood glucose 40 - 69 mg/dL and patient NOT ALERT or NPO, Starting on Tue08/28/24 at 1555, Repeat blood glucose in 15 minutes. If blood glucose remains LESS THAN 70 mg/dL, repeat treatment and recheck blood glucose in 15 minutes x 2. If using glycemic management system, dose as instructed per system. If blood glucose remains LESS THAN 70 mg/dL after 2 intravenous boluses start dextrose 10% at 100 mL/hour and notify provider. dextrose bolus 10% 250 mL(Linked Group 3) 250 mL, IntraVENous, at 937.5 mL/hr, Administer over 16 Minutes, PRN, Other, Blood glucose LESS THAN 40 mg/dL and patient NOT ALERT or NPO, Starting on Tue08/28/24 at 1555, Repeat blood glucose in 15 minutes. If blood glucose remains LESS THAN 70 mg/dL, repeat treatment and recheck blood glucose in 15 minutes x 2. If using glycemic management system, dose as instructed per system. If blood glucose remains LESS THAN 70 mg/dL after 2 intravenous boluses start dextrose 10% at 100 mL/hour and notify provider. diazePAM (VALIUM) tablet 10 mg 10 mg, Oral, EVERY 12 HOURS PRN, Starting on Tue08/28/24 at 1542, Until Discontinued, Anxiety, Sleep 0925 (Given - Provider: Chery Abel RN)2204 (Given - Provider: Yesika Sprague RN) 2206 (Given - Provider: Yuki Chapin, CARRI) 1354 (Given - Provider: Eliza Kay RN) glucagon injection 1 mg 1 mg, SubCUTAneous, PRN, Starting on Tue08/28/24 at 1555, Until Discontinued, Low blood sugar, Blood glucose LESS THAN 70 mg/dL and patient NOT ALERT or NPO and does not have IV access., After administration, attempt intravenous access and start dextrose 10% at 100 mL/hr. Repeat blood glucose in 15 minutes x 2 and notify provider. Reconstitute powder for injection by adding 1 mL of pasteuriser operator-supplied sterile diluent or sterile water for injection to a vial containing 1 mg of the drug, to provide solutions containing 1 mg/mL. Shake vial gently to dissolve. glucose chewable tablet 16 g 16 g (4 tablet), Oral, PRN, Starting on Tue08/28/24 at 1555, Until Discontinued, Low blood sugar, If blood glucose is LESS THAN 70 mg/dL and patient is alert and tolerating oral. Give 4 tablets (16g) Repeat blood glucose in 15 minutes. If blood glucose is LESS THAN 70 mg/dL, repeat treatment and recheck blood glucose in 15 minutes x 2. If blood glucose remains LESS THAN 70 mg/dL, notify provider. hydrALAZINE (APRESOLINE) injection 10 mg (CANCELED) 10 mg, IntraVENous, EVERY 6 HOURS PRN, Starting on 09/02/24 at 0047, Until 09/02/24 at 0442, SBP > 160 0052 (Given - Provider: Yesika Sprague RN - Comment: HR:[id number]) hydrALAZINE (APRESOLINE) injection 20 mg 20 mg, IntraVENous, EVERY 4 HOURS PRN, Starting on Tue09/02/24 at 0442, Until Discontinued, SBP > 160 0453 (Given - Provider: Yesika Sprague RN - Comment: B)2306 (Given - Provider: Yuki Chapin RN) 0720 (Given - Provider: Yuki Chapin RN) HYDROcodone-acetaminophen (NORCO) 5-325 MG per tablet 1 tablet 1 tablet, Oral, EVERY 8 HOURS PRN, Starting on [place] 08/30/24 at 1606, Until Discontinued, Pain Severe (7-10), Maximum dose of acetaminophen is 4000 mg from all sources in 24 hours. 0812 (Given - Provider: Chery Abel RN)1621 (Given - Provider: Chery Abel RN) 0738 (Given - Provider: Angie Champagne, CARRI)1544 (Given - Provider: Angie Champagne RN)2344 (Given - Provider: Yuki Chapin, CARRI) 1006 (Given - Provider: Nicole Quiros RN) ibuprofen (ADVIL;MOTRIN) tablet 400 mg 400 mg, Oral, EVERY 6 HOURS PRN, Starting on Tue09/03/24 at 1115, Until Discontinued, Pain Moderate (4-6) ketorolac (TORADOL) injection 15 mg (COMPLETED) 15 mg, IntraVENous, ONCE PRN, 1 dose, Starting on Tue09/02/24 at 0953, Until Tue09/03/24 at 0133, headache if no relief with tylenol, Do not administer for more than 5 days. 0133 (Given - Provider: Yuki Chapin, CARRI) magnesium sulfate 2000 mg in water 50 mL IVPB 2,000 mg, IntraVENous, at 25 mL/hr, Administer over 2 Hours, PRN, Other, Magnesium Replacement, Starting on Tue08/28/24 at 1542, Mag Lab Replacement Action 1.4-1.6 mg/dL 2,000 mg Total Dose Given as 1,000 mg IVPB x 2 doses or 2,000 mg IVPB x 1 dose 1.0-1.3 mg/dL 4,000 mg Total Dose Given as 1,000 mg IVPB x 4 doses or 2,000 mg IVPB x 2 doses Less than 1.0 mg/dL CALL PHYSICIAN and give 4,000 mg Total Dose Given as 1,000 mg IVPB x 4 doses or 2,000 mg IVPB x 2 doses Infuse at 1,000 mg/hr Repeat Mag level 1 hour after final administration Protocol not for use in Patients with CrCl less than 30ml/min melatonin tablet 3 mg 3 mg, Oral, NIGHTLY PRN, Starting on Tue09/03/24 at 1113, Until Discontinued, Sleep OLANZapine zydis (ZYPREXA) disintegrating tablet 10 mg 10 mg, Oral, EVERY 12 HOURS PRN, Starting on Tue08/28/24 at 1542, Until Discontinued, Agitation ondansetron (ZOFRAN) injection 4 mg(Linked Group 4) 4 mg, IntraVENous, EVERY 6 HOURS PRN, Starting on Tue08/28/24 at 1542, Until Discontinued, Nausea, Vomiting, Administer if oral route cannot be used. 0812 (See Alternative - Provider: Chery Abel RN) ondansetron (ZOFRAN-ODT) disintegrating tablet 4 mg(Linked Group 4) 4 mg, Oral, EVERY 8 HOURS PRN, Starting on Tue08/28/24 at 1542, Until Discontinued, Nausea, Vomiting 0812 (Given - Provider: Chery Abel RN) polyethylene glycol (GLYCOLAX) packet 17 g 17 g, Oral, DAILY PRN, Starting on Tue08/28/24 at 1542, Until Discontinued, Constipation, First line therapy for constipation potassium bicarb-citric acid (EFFER-K) effervescent tablet 40 mEq(Linked Group 5) 40 mEq, Oral, PRN, Starting on Tue08/28/24 at 1542, Until Discontinued, Per Potassium Replacement Protocol, Administer as alternative if patient unable to tolerate oral tablet. K Lab Replacement Action 3.1 to 3.5 40 mEq ORAL x 1 Under 3.1 Refer to IV replacement protocol Recheck K level in AM. Protocol not for use in patients with CrCl less than 30 mL/min. Do not chew or crush. Dissolve flavored tablets completely in 3 to 4 ounces of cold water; unflavored tablets may be dissolved in 3 to 4 ounces of cold juice. Patient to sip slowly over a 5 to 10 minute period. May further dilute if GI adverse effects occur. potassium chloride (KLOR-CON M) extended release tablet 40 mEq(Linked Group 5) 40 mEq, Oral, PRN, Starting on Tue08/28/24 at 1542, Until Discontinued, Potassium Replacement, May give alternative linked oral order (ordered as effervescent, packet, or liquid solution) if patient unable to tolerate tablet. K Lab Replacement Action 3.1 to 3.5 40 mEq ORAL x 1 Under 3.1 Refer to IV replacement protocol Recheck K level in AM. Protocol not for use in patients with CrCl less than 30 mL/min. Do not crush, chew, or suck on tablet. Tablet may also be broken in half and each half swallowed separately. potassium chloride 10 mEq/100 mL IVPB (Peripheral Line)(Linked Group 5) 10 mEq, IntraVENous, PRN, Starting on Tue08/28/24 at 1542, Until Discontinued, at 100 mL/hr, Potassium Replacement, K Lab Replacement Action 2.7 to 3.0 10 mEq IVPB x 6 doses (60 mEq Total) Under 2.7 CALL PROVIDER and administer 10 mEq IVPB x 6 doses (60 mEq Total) Infuse at 10 mEq/hr. Repeat Potassium lab 1 hour after final administration. Protocol not for use in patients with CrCl less than 30 mL/min. sodium chloride flush 0.9 % injection 5-40 mL 5-40 mL, IntraVENous, PRN, Starting on Tue08/28/24 at 1542, Until Discontinued, Line Care, After every IV line use, For Line Patency: Peripheral IV = 5 mL; Midline or Central Line = 10 mL/lumen. If following IV push medication, administer flush at same rate as the IV push. Flush volume is determined by type of infusion therapy being given. For non-viscous solutions use: Peripheral IV = 5 mL Midline or Central Line = 10 mL/lumen For viscous solutions (i.e. blood components, parenteral nutrition, contrast media, or after obtaining blood sample) use: Peripheral IV = 10 mL Midline or Central Line = 20 mL/lumen 0925 (Given - Provider: Chery Abel RN)1051 (Given - Provider: Chery Abel RN)1140 (Given - Provider: Chery Abel RN) sulfur hexafluoride microspheres (LUMASON) 60.7-25 MG injection 2 mL 2 mL, IntraVENous, IMG ONCE PRN, 1 dose, Starting on Tue08/30/24 at 0751, Until Discontinued, Other, Inability to adequately visualize heart without contrast, Only to be given during ECHOCARDIOGRAM. Echocardiogram should first be performed without contrast and if exam is adequate then DO NOT administer the contrast. If unable to adequately visualize heart without contrast and the patient has no contraindications to echo contrast then administer the echo contrast. Linked Groups Order Group 1: budesonide-formoterol (SYMBICORT) 160-4.5 MCG/ACT inhaler 2 puffJump to med 2 puff, Inhalation, 2 TIMES DAILY RESP, First dose on Tue08/28/24 at 2000, Until Discontinued And tiotropium (SPIRIVA RESPIMAT) 2.5 MCG/ACT inhaler 2 puffJump to med 2 puff, Inhalation, DAILY RESP, First dose on Tue08/28/24 at 1600, Until Discontinued Group 2: acetaminophen (TYLENOL) tablet 650 mgJump to med 650 mg, Oral, EVERY 6 HOURS PRN, Starting on Tue08/28/24 at 1542, Until Discontinued, Pain Mild (1-3), Fever, For temp greater than 100.4 F (38 C), Maximum dose of acetaminophen is 4000 mg from all sources in 24 hours. Or acetaminophen (TYLENOL) suppository 650 mgJump to med 650 mg, Rectal, EVERY 6 HOURS PRN, Starting on Tue08/28/24 at 1542, Until Discontinued, Pain Mild (1-3), Fever, For temp greater than 100.4 F (38 C), Administer if oral route cannot be used. Group 3: dextrose bolus 10% 125 mLJump to med 125 mL, IntraVENous, at 937.5 mL/hr, Administer over 8 Minutes, PRN, Other, Blood glucose 40 - 69 mg/dL and patient NOT ALERT or NPO, Starting on Tue08/28/24 at 1555, Repeat blood glucose in 15 minutes. If blood glucose remains LESS THAN 70 mg/dL, repeat treatment and recheck blood glucose in 15 minutes x 2. If using glycemic management system, dose as instructed per system. If blood glucose remains LESS THAN 70 mg/dL after 2 intravenous boluses start dextrose 10% at 100 mL/hour and notify provider. Or dextrose bolus 10% 250 mLJump to med 250 mL, IntraVENous, at 937.5 mL/hr, Administer over 16 Minutes, PRN, Other, Blood glucose LESS THAN 40 mg/dL and patient NOT ALERT or NPO, Starting on Tue08/28/24 at 1555, Repeat blood glucose in 15 minutes. If blood glucose remains LESS THAN 70 mg/dL, repeat treatment and recheck blood glucose in 15 minutes x 2. If using glycemic management system, dose as instructed per system. If blood glucose remains LESS THAN 70 mg/dL after 2 intravenous boluses start dextrose 10% at 100 mL/hour and notify provider. Group 4: ondansetron (ZOFRAN-ODT) disintegrating tablet 4 mgJump to med 4 mg, Oral, EVERY 8 HOURS PRN, Starting on Tue08/28/24 at 1542, Until Discontinued, Nausea, Vomiting Or ondansetron (ZOFRAN) injection 4 mgJump to med 4 mg, IntraVENous, EVERY 6 HOURS PRN, Starting on Tue08/28/24 at 1542, Until Discontinued, Nausea, Vomiting, Administer if oral route cannot be used. Group 5: potassium chloride (KLOR-CON M) extended release tablet 40 mEqJump to med 40 mEq, Oral, PRN, Starting on Tue08/28/24 at 1542, Until Discontinued, Potassium Replacement, May give alternative linked oral order (ordered as effervescent, packet, or liquid solution) if patient unable to tolerate tablet. K Lab Replacement Action 3.1 to 3.5 40 mEq ORAL x 1 Under 3.1 Refer to IV replacement protocol Recheck K level in AM. Protocol not for use in patients with CrCl less than 30 mL/min. Do not crush, chew, or suck on tablet. Tablet may also be broken in half and each half swallowed separately. Or potassium bicarb-citric acid (EFFER-K) effervescent tablet 40 mEqJump to med 40 mEq, Oral, PRN, Starting on Tue08/28/24 at 1542, Until Discontinued, Per Potassium Replacement Protocol, Administer as alternative if patient unable to tolerate oral tablet. K Lab Replacement Action 3.1 to 3.5 40 mEq ORAL x 1 Under 3.1 Refer to IV replacement protocol Recheck K level in AM. Protocol not for use in patients with CrCl less than 30 mL/min. Do not chew or crush. Dissolve flavored tablets completely in 3 to 4 ounces of cold water; unflavored tablets may be dissolved in 3 to 4 ounces of cold juice. Patient to sip slowly over a 5 to 10 minute period. May further dilute if GI adverse effects occur. Or potassium chloride 10 mEq/100 mL IVPB (Peripheral Line)Jump to med 10 mEq, IntraVENous, PRN, Starting on Tue08/28/24 at 1542, Until Discontinued, at 100 mL/hr, Potassium Replacement, K Lab Replacement Action 2.7 to 3.0 10 mEq IVPB x 6 doses (60 mEq Total) Under 2.7 CALL PROVIDER and administer 10 mEq IVPB x 6 doses (60 mEq Total) Infuse at 10 mEq/hr. Repeat Potassium lab 1 hour after final administration. Protocol not for use in patients with CrCl less than 30 mL/min. PRN Medication Order 09/03/2024 09/04/2024 09/05/2024 ipratropium 0.5 mg-albuterol 2.5 mg (DUONEB) nebulizer solution 1 Dose 1 Dose, Inhalation, PRN, Starting on Tue09/05/24 at 1747, Until Discontinued, Shortness of Breath, Initiate RT Bronchodilator Protocol: No 1752 (Given - Provid er: Alex Nieves RCP) INFORMATION SOURCE (unrecogn ized section and content) DATE CREATED AUTHOR 09/03/2024 [facility] DATE CREATED AUTHOR AUTHOR'S ORGANIZ ATION 09/12/2024 [facility] DATE CREATED AUTHOR AUTHOR'S ORGANIZ ATION 09/26/2024 [facility] Ordered Prescriptions (unrec ognized section and content) Prescription Sig Dispensed Refills Start Date End Da te aspirin 81 MG EC tablet Take 1 tablet by mouth daily 30 tablet 09/03/2024 nicotine (NICODERM CQ) 21 MG/24HR Place 1 patch onto the skin daily 30 patch 09/04/2024 predniSONE (DELTASONE) 20 MG tablet Take 2 tablets by mouth daily for 5 doses 10 tablet 09/03/2024 09/08/2024 isosorbide mononitrate (IMDUR) 30 MG extended release tablet Take 1 tablet by mouth daily 30 tablet 09/04/2024 bumetanide (BUMEX) 1 MG tablet Take 1 tablet by mouth daily 30 tablet 09/04/2024 metoprolol succinate (TOPROL XL) 100 MG extended release tablet Take 0.5 tablets by mouth daily 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 30 tablet 3 09/03/2024 ibuprofen (ADVIL;MOTRIN) 400 MG tablet Take 1 tablet by mouth every 6 hours as needed for Pain (headaches) 120 tablet 09/03/2024 09/03/2024 Prescription Sig Dispensed Refills Start Date End Da te albuterol (PROVENTIL) (2.5 MG/3ML) 0.083% nebulizer solution Take 3 mLs by nebulization every 6 hours as needed for Wheezing 120 each 1 09/05/2024 predniSONE (DELTASONE) 20 MG tablet Take 2 tablets by mouth daily for 5 days 10 tablet 09/05/2024 09/10/2024 FOR RECORDS PERTAINING TO PATIENTS WHO ARE OR HAVE BEEN ENROLLED IN A CHEMICAL DEPENDENCY/SUBSTANCEABUSE PROGRAM, SOME INFORMATION MAY BE OMITTED. This clinical summary was aggregated from multiple sources. Caution should be exercised in using it in the provision of clinical care. This summary normalizes information from multiple sources, and as a consequence, information in this document may materially change the coding, format and clinical context of patient data. In addition, data may be omitted in some cases. CLINICAL DECISIONS SHOULD BE BASED ON THE PRIMARY CLINICAL RECORDS. [facility] [employer], [facility]. provides no warranty or guarantee of the accuracy or completeness of information in this document.
[2024-09-26 22:00] LABS: C Reactive Protein 3.01 mg/dL (<=0.50)
--- NOTE | 2024-09-26 22:30 | PC.NURSE ---
Patient Alert and oriented but when orientation questions asked, she answers and has to correct herself. Able to correctly state name, birthdate, and month without hesitation. Patient stated she was at [facility] and was not able to say Reta. Patient stated 1956 as the current year and when I restated the year, she corrected herself to 2024. Patient knew her birthday was Tuesday and able to calculate current date with allowing time to calculate.
[2024-09-26] MEDS: IPRATROPIUM/ALBUTEROL SULFATE 3 ML AMPUL.NEB IH (23:10)
[2024-09-26 23:14] LABS: Glucometer 160 mg/dL (74-106)
[2024-09-26] MEDS: ENOXAPARIN SODIUM 40 MG/0.4 ML SYRINGE SUBQ (23:15)
[2024-09-26] MEDS: METHYLPREDNISOLONE SOD SUCC PF 125 MG/2 ML VIAL IVP (23:17)
[2024-09-26] MEDS: BUMETANIDE 1 MG TABLET PO (23:17)
[2024-09-26] MEDS: DONEPEZIL HCL 10 MG TABLET PO (23:18)
[2024-09-26] MEDS: PAROXETINE HCL 20 MG TABLET 40 MG PO (23:19)
[2024-09-26] MEDS: METOPROLOL SUCCINATE 50 MG TAB.ER.24H PO (23:19)
[2024-09-26] MEDS: INSULIN ASPART 300 UNIT/3 ML PEN SUBQ (23:22)
[2024-09-26] MEDS: DIAZEPAM 5 MG TABLET 10 MG PO (23:28)
[2024-09-27] VITALS (28 sets, daily range): BP systolic 96–157; BP diastolic 53–77; PULSE 9–96; TEMP 36.4–36.9; O2SAT 87–98
[2024-09-27 00:49] LABS: Lactate/Lactic Acid 2.8 mmol/L (0.4-2.0)
[2024-09-27] MEDS: IPRATROPIUM/ALBUTEROL SULFATE 3 ML AMPUL.NEB IH ×4 (03:31→16:19)
[2024-09-27] MEDS: NICOTINE 21 MG PATCH.TD24 TD (03:41)
[2024-09-27] MEDS: ACETAMINOPHEN 325 MG TABLET 650 MG PO (04:22)
[2024-09-27 05:16] LABS: Hematocrit 33.6 % (36.0-48.0); Hemoglobin 10.9 g/dL (12.0-16.0); Mean Corpuscular HGB Conc 32.4 g/dL (29.9-35.2); Mean Corpuscular Hemoglobin 27.8 pg (26.7-34.0); Mean Corpuscular Volume 85.7 fL (81.0-99.0); Mean Platelet Volume 10.2 fL (9.5-13.5); Platelet Count 304 10^3/uL (150-450); Red Blood Count 3.92 10^6/uL (4.20-5.40); Red Cell Distribution Width 13.6 % (11.0-15.0); White Blood Count 6.3 10^3/uL (4.0-11.0)
[2024-09-27 05:27] LABS: Alanine Aminotransferase 16 U/L (14-59); Albumin Globulin Ratio 0.7; Albumin Level 3.1 g/dL (3.4-5.0); Alkaline Phosphatase 86 U/L (46-116); Anion Gap 8.7; Aspartate Amino Transferase 22 U/L (15-37); BUN Creatinine Ratio 6.8; Bilirubin Total 0.2 mg/dL (0.2-1.0); Calcium 8.6 mg/dL (8.5-10.1); Carbon Dioxide 34.4 mmol/L (21.0-32.0); Chloride 98 mmol/L (98-107); Estimated GFR (African America >60 (>=60 mL/min/1.73m^2); Estimated GFR (Non-African Ame >60 (>=60 mL/min/1.73m^2); Globulin 4.4 g/dL; Glucose 163 mg/dL (74-106); Magnesium 1.8 mg/dL (1.8-2.4); Potassium 3.1 mmol/L (3.5-5.1); Sodium 138 mmol/L (136-145); Total Protein 7.5 g/dL (6.4-8.2)
[2024-09-27] MEDS: METHYLPREDNISOLONE SOD SUCC PF 40 MG/ML VIAL IVP (06:25)
[2024-09-27 06:34] LABS: Segmented Neut Absolute Manual 5.48 10^3/uL (1.4-6.5)
[2024-09-27 06:35] LABS: Lymphocytes Absolute Manual 0.56 10^3/uL (1.20-3.80); Monocytes Absolute Manual 0.25 10^3/uL (0.30-0.80); Toxic Granulation 1+
[2024-09-27 07:32] LABS: Glucometer 152 mg/dL (74-106)
--- NOTE | 2024-09-27 08:29 | CM.NOTE ---
Important Message From Medicare discussed with pt, pt verbalizes understanding and signs paper. Original given to pt and copy placed on pt's chart.
[2024-09-27] MEDS: PAROXETINE HCL 20 MG TABLET 40 MG PO (10:18)
[2024-09-27] MEDS: BUMETANIDE 1 MG TABLET PO (10:19)
[2024-09-27] MEDS: LOSARTAN POTASSIUM 50 MG TABLET PO (10:20)
[2024-09-27] MEDS: MIRTAZAPINE 15 MG TABLET 30 MG PO ×2 (10:21→21:12)
[2024-09-27] MEDS: METOPROLOL SUCCINATE 50 MG TAB.ER.24H PO (10:21)
[2024-09-27] MEDS: DONEPEZIL HCL 10 MG TABLET PO (10:23)
[2024-09-27] MEDS: BENZONATATE 100 MG CAPSULE 200 MG PO ×2 (10:23→21:12)
[2024-09-27] MEDS: ISOSORBIDE MONONITRATE 30 MG TAB.ER.24H PO (10:23)
[2024-09-27] MEDS: ATORVASTATIN CALCIUM 40 MG TABLET PO (10:25)
[2024-09-27] MEDS: ENOXAPARIN SODIUM 40 MG/0.4 ML SYRINGE SUBQ (10:25)
--- NOTE | 2024-09-27 11:00 | CM.NOTE ---
Rounds made with Dr. Prado, pt continues to require 4L NC of oxygen. Pt states she wears 1-2L at home. No discharge today, will continue breathing treatments and steroids.
[2024-09-27 11:34] LABS: Glucometer 166 mg/dL (74-106)
--- NOTE | 2024-09-27 11:58 | PM.HP ---
HPI H&P: HPI History of Present Illness Chief complaint: COPD EXACERBATION Narrative: 69 y/o female with a history of COPD on home oxygen presents to ER with increased SOB. Symptoms getting worse for the past weeks. Increased SOB with exertion. Developed URI symptoms with cough, congestion, and rhinorrhea. Denies sick contacts but visiting in hospital. Chest tight and hard to take deep breath. Walked to bathroom and developed severe SOB and not able to catch breath. Turned up oxygen to 6 LPM but no improvement and called EMS. Given Duoneb and Solu-medrol then transported to ER. WBC 10.1 and chest x-ray negative. Given breathing treatments without improvement and continued chest tightness. Continued to require increased oxygen and admitted. Opioid HPI Opioid Management Most Recent Pain and Opioid Data: Last Pain Scale 10 09/27/24 11:10 09/27/24 Last Pain Assessment 09/27/24 11:10 Last MAR Pain Assessment 09/27/24 06:20 Last ORT Total Score 3 09/26/24 21:37 09/26/24 Last ORT Risk Category Low Risk 09/26/24 21:37 09/26/24 Review of Systems ROS Constitutional Denies: fever, chills or fatigue Cardiovascular Denies: chest pain, palpitations or edema Respiratory Reports: shortness of breath, cough and wheezing Gastrointestinal Denies: abdominal pain, nausea, vomiting or diarrhea Genitourinary Denies: painful urination [facility] Medical History (Updated 09/27/24 @ 12:03 by Shiva Prado MD) Hypokalemia ?E87.6 - Hypokalemia (ICD-10) Hypomagnesemia ?E83.42 - Hypomagnesemia (ICD-10) Urinary tract infection ?N39.0 - Urinary tract infection, site not specified (ICD-10) Hypoxia ?R09.02 - Hypoxemia (ICD-10) Tobacco abuse ?Z72.0 - Tobacco use (ICD-10) HLD (hyperlipidemia) ?E78.5 - Hyperlipidemia, unspecified (ICD-10) Lung cancer ?C34.90 - Malignant neoplasm of unspecified part of unspecified bronchus or lung (ICD-10) Hypotension ?I95.9 - Hypotension, unspecified (ICD-10) Emphysema of lung ?J43.9 - Emphysema, unspecified (ICD-10) COPD (chronic obstructive pulmonary disease) ?J44.9 - Chronic obstructive pulmonary disease, unspecified (ICD-10) Social History Highest level of school completed/degree received: 7th grade Little interest or pleasure in doing things: nearly every day Feeling down, depressed, or hopeless: nearly every day Meds Home Medications and Allergies Home Medications ?Medication ?Instructions ?Recorded ?Confirmed ?Type albuterol sulfate 90 mcg/actuation 1 puff inhalation Q4H PRN 05/21/24 09/26/24 History aerosol inhaler shortness of breath or wheezing atorvastatin 40 mg tablet 40 mg PO DAILY 05/21/24 09/26/24 History diazepam 10 mg tablet 10 mg PO BID PRN anxiety 05/21/24 09/26/24 History losartan 50 mg tablet 50 mg PO DAILY 05/21/24 09/26/24 History benzonatate 100 mg capsule 200 mg PO BID 09/26/24 09/26/24 History bumetanide 1 mg tablet 1 mg PO QDAY 09/26/24 09/26/24 History donepezil 10 mg tablet 10 mg PO QDAY 09/26/24 09/26/24 History isosorbide mononitrate 30 mg 30 mg PO QDAY 09/26/24 09/26/24 History tablet,extended release 24 hr metformin 500 mg tablet 500 mg PO QDAY 09/26/24 09/26/24 History metoprolol succinate 50 mg 50 mg PO QDAY 09/26/24 09/26/24 History tablet,extended release 24 hr mirtazapine 30 mg tablet 30 mg PO QDAY 09/26/24 09/26/24 History paroxetine HCl 40 mg tablet 40 mg PO QDAY 09/26/24 09/26/24 History Allergies Allergy/AdvReac Type Severity Reaction Status Date / Time codeine Allergy Severe Hives Verified 05/21/24 17:12 Iodinated Contrast Media Allergy Severe Hives Verified 05/21/24 17:12 Exam Constitutional Vital Signs, click to edit/add: Last Vital Signs Temp 98.5 F 09/27/24 08:00 Pulse 70 09/27/24 11:48 Resp 18 09/27/24 08:00 BP 118/70 09/27/24 08:00 Pulse Ox 90 L 09/27/24 11:18 O2 Del Method Nasal Cannula 09/27/24 11:18 O2 Flow Rate 4 09/27/24 11:18 Documenting provider has reviewed patient's vital signs: yes Common normals: no apparent distress, oriented x3 and alert HENMT Common normals: normocephalic Eye Common normals: PERRL and EOMs intact bilaterally Respiratory Common normals: normal respiratory effort Auscultation: diminished lung sounds diffuse Cardio Common normals: regular rate, regular rhythm, no gallops, no murmurs and no rub GI Common normals: Normal to inspection, nondistended, normoactive bowel sounds present and non-tender Extremity Common normals: no pedal edema Results Labs Labs: Short CBC 09/26/24 09/27/24 Range/Units 18:10 04:43 WBC 10.1 6.3 (4.0-11.0) 10^3/uL Hgb 12.0 10.9 L (12.0-16.0) g/dL Hct 37.0 33.6 L (36.0-48.0) % Plt Count 326 304 (150-450) 10^3/uL BMP 09/26/24 09/27/24 18:10 04:43 Sodium 140 138 Potassium 3.0 L 3.1 L Chloride 99 98 Carbon Dioxide 33.2 H 34.4 H BUN 6.0 L 6.0 L Creatinine 0.96 0.88 Glucose 120 H 163 H Calcium 9.0 8.6 Liver Function 09/26/24 09/27/24 Range/Units 18:10 04:43 Total Bilirubin 0.2 0.2 (0.2-1.0) mg/dL AST 25 22 (15-37) U/L ALT 17 16 (14-59) U/L Alkaline Phosphatase 92 86 (46-116) U/L Albumin 3.5 3.1 L (3.4-5.0) g/dL ABG ABG results: 09/26/24 18:10 VBG pH 7.421 VBG pCO2 54.1 H Assessment and Plan Assessment and Plan (1) COPD exacerbation: (2) Acute viral bronchitis: (3) Acute on chronic hypoxic respiratory failure: (4) Diabetes: Qualifiers: Diabetes mellitus type: type 2 Diabetes mellitus alf insulin use: without regional intermodal truck driver use Diabetes mellitus complication status: with hyperglycemia Qualified Code(s): E11.65 - Type 2 diabetes mellitus with hyperglycemia (5) Pancreatic cancer metastasized to lung: (6) Cigarette smoker: Plan Presented with worsening hypoxia and SOB. Remains on 4 LPM and BS severely diminished. Likely has viral bronchitis which has caused worsening hypoxia and COPD exacerbation. Continue solu-medrol and duoneb. Continue antibiotics for possible bacterial infection. Add PEP. Resume home medication and wean oxygen as tolerated. Plan for at least a 2 midnight stay for inpatient medically necessary services.
[2024-09-27] MEDS: PNEUMOC 20-VAL CONJ-DIP CRM/PF 0.5 ML SYRINGE IM (12:21)
[2024-09-27] MEDS: FLU VACC QS2024(65UP)/MF59C/PF 60 MCG/0.5 ML SYRINGE IM (12:24)
[2024-09-27] MEDS: METHYLPREDNISOLONE SOD SUCC PF 125 MG/2 ML VIAL 60 MG IVP ×2 (12:29→18:28)
[2024-09-27] MEDS: ENSURE ORIGINAL 237 ML BOTTLE PO ×2 (14:15→21:12)
--- NOTE | 2024-09-27 14:20 | SWNOTE1 ---
SW spoke with case management and pt does still drive to see her at [facility]. Pt is up and independent. She does wear home oxygen.
--- NOTE | 2024-09-27 14:33 | SWNOTE1 ---
Correction from previous note, pt has people take her to and from [place] to see . She is independent and does not use any devices to ambulate.
[2024-09-27] MEDS: BUTALB/ACETAMINOPHEN/CAFFEINE 50-325-40MG TABLET 1 TAB PO (15:35)
[2024-09-27 16:18] LABS: Glucometer 258 mg/dL (74-106)
--- NOTE | 2024-09-27 16:23 | PC.NURSE ---
nuclear instructor verifies and co-signs student nurse charting.
--- NOTE | 2024-09-27 16:24 | PC.NURSE ---
adjunct instructor in economics verifies and co-signs student nurse charting.
[2024-09-27] MEDS: CEFTRIAXONE 1,000 MG in 0.9 % SODIUM CHLORIDE 50 ML 100 MG IV (17:36)
[2024-09-27] MEDS: AZITHROMYCIN 500 MG in 0.9 % SODIUM CHLORIDE 250 ML 250 MG IV (18:23)
[2024-09-27] MEDS: INSULIN ASPART 300 UNIT/3 ML PEN SUBQ ×2 (18:29→21:12)
[2024-09-27] MEDS: 0.9 % SODIUM CHLORIDE 250 ML 10 ML IV (18:33)
[2024-09-27 19:47] LABS: Glucometer 185 mg/dL (74-106)
[2024-09-27] MEDS: ALBUTEROL SULFATE 2.5 MG/3 ML VIAL NEB IH (20:09)
[2024-09-28] VITALS (24 sets, daily range): BP systolic 98–148; BP diastolic 54–71; PULSE 52–86; TEMP 36.6–37; O2SAT 87–97
[2024-09-28] MEDS: METHYLPREDNISOLONE SOD SUCC PF 125 MG/2 ML VIAL 60 MG IVP ×4 (00:16→21:10)
[2024-09-28] MEDS: TRAZODONE HCL 50 MG TABLET 25 MG PO ×2 (00:16→23:49)
[2024-09-28 06:01] LABS: Basophils Percent Auto 0.1 % (0.2-2.0); Eosinophils Percent Auto 0.2 % (0.9-7.0); Hematocrit 34.3 % (36.0-48.0); Immature Granulocytes Abs Auto 0.06 10^3/uL (0.00-0.03); Immature Granulocytes Pct Auto 0.5 % (0.0-0.5); Lymphocytes Absolute Auto 1.6 10^3/uL (1.2-3.8); Lymphocytes Percent Auto 12.4 % (20.5-60.0); Mean Corpuscular HGB Conc 32.1 g/dL (29.9-35.2); Mean Corpuscular Hemoglobin 27.6 pg (26.7-34.0); Monocytes Absolute Auto 0.3 10^3/uL (0.3-0.8); Monocytes Percent Auto 2.5 % (1.7-12.0); Neutrophils Absolute Auto 11.2 10^3/uL (1.4-6.5); Neutrophils Percent Auto 84.3 % (43.0-75.0); Platelet Count 313 10^3/uL (150-450); Red Blood Count 3.99 10^6/uL (4.20-5.40); Red Cell Distribution Width 13.5 % (11.0-15.0); White Blood Count 13.3 10^3/uL (4.0-11.0)
[2024-09-28 06:25] LABS: Alanine Aminotransferase 9 U/L (14-59); Albumin Globulin Ratio 0.7; Albumin Level 2.9 g/dL (3.4-5.0); Alkaline Phosphatase 76 U/L (46-116); Anion Gap 8.4; Aspartate Amino Transferase 18 U/L (15-37); BUN Creatinine Ratio 11.4; Bilirubin Total 0.2 mg/dL (0.2-1.0); Calcium 8.9 mg/dL (8.5-10.1); Carbon Dioxide 35.2 mmol/L (21.0-32.0); Chloride 101 mmol/L (98-107); Estimated GFR (African America >60 (>=60 mL/min/1.73m^2); Estimated GFR (Non-African Ame >60 (>=60 mL/min/1.73m^2); Globulin 4.1 g/dL; Glucose 158 mg/dL (74-106); Magnesium 2.1 mg/dL (1.8-2.4); Potassium 3.6 mmol/L (3.5-5.1); Sodium 141 mmol/L (136-145)
[2024-09-28] MEDS: BUTALB/ACETAMINOPHEN/CAFFEINE 50-325-40MG TABLET 1 TAB PO (07:48)
[2024-09-28 07:50] LABS: Glucometer 142 mg/dL (74-106)
[2024-09-28] MEDS: ONDANSETRON PF 4 MG/2 ML VIAL IV (07:52)
[2024-09-28] MEDS: BENZONATATE 100 MG CAPSULE 200 MG PO ×2 (10:07→21:10)
[2024-09-28] MEDS: ISOSORBIDE MONONITRATE 30 MG TAB.ER.24H PO (10:07)
[2024-09-28] MEDS: PAROXETINE HCL 20 MG TABLET 40 MG PO (10:08)
[2024-09-28] MEDS: ATORVASTATIN CALCIUM 40 MG TABLET PO (10:08)
[2024-09-28] MEDS: BUMETANIDE 1 MG TABLET PO (10:08)
[2024-09-28] MEDS: DONEPEZIL HCL 10 MG TABLET PO (10:08)
[2024-09-28] MEDS: LOSARTAN POTASSIUM 50 MG TABLET PO (10:08)
[2024-09-28] MEDS: METOPROLOL SUCCINATE 50 MG TAB.ER.24H PO (10:09)
[2024-09-28] MEDS: ENOXAPARIN SODIUM 40 MG/0.4 ML SYRINGE SUBQ (10:09)
[2024-09-28] MEDS: ENSURE ORIGINAL 237 ML BOTTLE PO ×2 (10:09→21:11)
--- NOTE | 2024-09-28 10:37 | CM.NOTE ---
Rounds made with Dr. Prado, pt back up to 4L NC. Pt continues with increased dyspnea with ambulation. Lung sounds with wheezing T.O. No discharge today.
[2024-09-28] MEDS: IPRATROPIUM/ALBUTEROL SULFATE 3 ML AMPUL.NEB IH ×3 (11:03→20:41)
--- NOTE | 2024-09-28 11:06 | P.PN_ITS ---
Progress Note: Subjective Subjective Interval history: Patient slowly improving. Continues to have SOB and worsening hypoxia with minimal exertion. Chest not as tight and mild cough. No sputum. Afebrile. Remains on 4 LPM. Decreased PO but no emesis or diarrhea. No chest pain or palpiations. Exam Constitutional Vital Signs, click to edit/add: Last Vital Signs Temp 97.8 F 09/28/24 08:01 Pulse 60 09/28/24 11:04 Resp 20 09/28/24 08:38 BP 148/67 H 09/28/24 08:01 Pulse Ox 93 L 09/28/24 11:04 O2 Del Method Nasal Cannula 09/28/24 11:04 O2 Flow Rate 4 09/28/24 11:04 Documenting provider has reviewed patient's vital signs: yes Common normals: no apparent distress, oriented x3 and alert HENMT Common normals: normocephalic Respiratory Common normals: normal respiratory effort Auscultation: wheezes expiratory wheezes and throughout and diminished lung sounds Cardio Common normals: regular rate, regular rhythm, no gallops, no murmurs and no rub GI Common normals: Normal to inspection, nondistended, normoactive bowel sounds present and non-tender Extremity Common normals: no pedal edema Progress Note: Objective Labs Labs: Short CBC 09/28/24 Range/Units 05:52 WBC 13.3 H (4.0-11.0) 10^3/uL Hgb 11.0 L (12.0-16.0) g/dL Hct 34.3 L (36.0-48.0) % Plt Count 313 (150-450) 10^3/uL BMP 09/28/24 05:52 Sodium 141 Potassium 3.6 Chloride 101 Carbon Dioxide 35.2 H BUN 8.0 Creatinine 0.70 Glucose 158 H Calcium 8.9 Liver Function 09/28/24 Range/Units 05:52 Total Bilirubin 0.2 (0.2-1.0) mg/dL AST 18 (15-37) U/L ALT 9 L (14-59) U/L Alkaline Phosphatase 76 (46-116) U/L Albumin 2.9 L (3.4-5.0) g/dL Progress Note: A&P Assessment and Plan (1) COPD exacerbation: (2) Acute viral bronchitis: (3) Acute on chronic hypoxic respiratory failure: (4) Diabetes: Qualifiers: Diabetes mellitus type: type 2 Diabetes mellitus halfway insulin use: without dedicated intermodal truck driver use Diabetes mellitus complication status: with hyperglycemia Qualified Code(s): E11.65 - Type 2 diabetes mellitus with hyperglycemia (5) Pancreatic cancer metastasized to lung: (6) Cigarette smoker: Plan Patient slowly improving and continue antibiotics, steroids, and breathing treatments. Wean oxygen as tolerated. Increase ambulation and continue PEP. If continues to improve possibly home in next 1-2 days.
[2024-09-28 11:38] LABS: Glucometer 312 mg/dL (74-106)
[2024-09-28] MEDS: INSULIN ASPART 300 UNIT/3 ML PEN SUBQ ×2 (11:38→21:23)
[2024-09-28 15:50] LABS: Glucometer 98 mg/dL (74-106)
[2024-09-28] MEDS: CEFTRIAXONE 1,000 MG in 0.9 % SODIUM CHLORIDE 50 ML 100 MG IV (17:03)
[2024-09-28] MEDS: AZITHROMYCIN 500 MG in 0.9 % SODIUM CHLORIDE 250 ML 250 MG IV (17:52)
[2024-09-28] MEDS: 0.9 % SODIUM CHLORIDE 250 ML 10 ML IV (18:12)
[2024-09-28] MEDS: MIRTAZAPINE 15 MG TABLET 30 MG PO (21:12)
[2024-09-28] MEDS: ACETAMINOPHEN 325 MG TABLET 650 MG PO (21:13)
[2024-09-28 21:20] LABS: Glucometer 157 mg/dL (74-106)
[2024-09-29] VITALS (8 sets, daily range): BP systolic 119–146; BP diastolic 74; PULSE 48–77; TEMP 36.3–36.7; O2SAT 88–100
[2024-09-29] MEDS: METHYLPREDNISOLONE SOD SUCC PF 125 MG/2 ML VIAL 60 MG IVP ×2 (01:24→08:21)
[2024-09-29 06:09] LABS: Basophils Percent Auto 0.1 % (0.2-2.0); Hematocrit 34.1 % (36.0-48.0); Hemoglobin 10.6 g/dL (12.0-16.0); Immature Granulocytes Abs Auto 0.13 10^3/uL (0.00-0.03); Immature Granulocytes Pct Auto 0.9 % (0.0-0.5); Lymphocytes Absolute Auto 1.8 10^3/uL (1.2-3.8); Lymphocytes Percent Auto 13.4 % (20.5-60.0); Mean Corpuscular HGB Conc 31.1 g/dL (29.9-35.2); Mean Corpuscular Hemoglobin 27.1 pg (26.7-34.0); Mean Corpuscular Volume 87.2 fL (81.0-99.0); Mean Platelet Volume 10.2 fL (9.5-13.5); Monocytes Absolute Auto 0.3 10^3/uL (0.3-0.8); Monocytes Percent Auto 1.8 % (1.7-12.0); Neutrophils Absolute Auto 11.5 10^3/uL (1.4-6.5); Neutrophils Percent Auto 83.8 % (43.0-75.0); Platelet Count 304 10^3/uL (150-450); Red Blood Count 3.91 10^6/uL (4.20-5.40); Red Cell Distribution Width 13.5 % (11.0-15.0); White Blood Count 13.7 10^3/uL (4.0-11.0)
[2024-09-29 06:28] LABS: Alanine Aminotransferase 12 U/L (14-59); Albumin Globulin Ratio 0.7; Albumin Level 2.8 g/dL (3.4-5.0); Alkaline Phosphatase 74 U/L (46-116); Anion Gap 9.7; Aspartate Amino Transferase 16 U/L (15-37); BUN Creatinine Ratio 21.6; Bilirubin Total 0.2 mg/dL (0.2-1.0); Carbon Dioxide 33.5 mmol/L (21.0-32.0); Chloride 100 mmol/L (98-107); Estimated GFR (African America >60 (>=60 mL/min/1.73m^2); Estimated GFR (Non-African Ame >60 (>=60 mL/min/1.73m^2); Globulin 3.9 g/dL; Glucose 183 mg/dL (74-106); Magnesium 2.3 mg/dL (1.8-2.4); Potassium 4.2 mmol/L (3.5-5.1); Sodium 139 mmol/L (136-145); Total Protein 6.7 g/dL (6.4-8.2)
[2024-09-29] MEDS: BUMETANIDE 1 MG TABLET PO (08:20)
[2024-09-29] MEDS: ENSURE ORIGINAL 237 ML BOTTLE PO (08:20)
[2024-09-29] MEDS: ENOXAPARIN SODIUM 40 MG/0.4 ML SYRINGE SUBQ (08:20)
[2024-09-29] MEDS: LOSARTAN POTASSIUM 50 MG TABLET PO (08:20)
[2024-09-29] MEDS: DONEPEZIL HCL 10 MG TABLET PO (08:20)
[2024-09-29] MEDS: PAROXETINE HCL 20 MG TABLET 40 MG PO (08:21)
[2024-09-29] MEDS: INSULIN ASPART 300 UNIT/3 ML PEN SUBQ (08:21)
[2024-09-29] MEDS: ATORVASTATIN CALCIUM 40 MG TABLET PO (08:21)
[2024-09-29] MEDS: METOPROLOL SUCCINATE 50 MG TAB.ER.24H PO (08:21)
[2024-09-29] MEDS: ISOSORBIDE MONONITRATE 30 MG TAB.ER.24H PO (08:21)
[2024-09-29] MEDS: BENZONATATE 100 MG CAPSULE 200 MG PO (08:21)
--- NOTE | 2024-09-29 08:33 | P.PN_ITS ---
Exam Narrative Exam Narrative: General: Patient is alert, and oriented to person, place and time with normal affect, proper hygiene Skin: no visible rashes, or ulcers Head: atraumatic, acephalic Eyes: PERRLA, no nystagmus present, conjunctiva clear, no scleral icterus Ears: normal Tympanic Membrane, normal gross auditory acuity Nose: symmetric, no discharge, no maxillary or frontal sinus tenderness Mouth/Throat: no erythema, exudate, or tonsillar enlargement, normal dentition Neck: no masses palpated, normal thyroid, no JVD or audible carotid bruits Heart: Normal rate and rhythm, no murmurs/rubs/gallops Lungs: no audible wheezes, crackles and normal breath sounds all lung naranjo Abdomen: Normal audible bowel sounds, no distension, No palpable masses, no organomegaly, no rebound/guarding/ or rigidity Musculoskeletal: muscle atrophy noted, ROM is limited due to being in hospital bed, no swelling bilateral lower extremities Vascular: Normal carotid, radial, femoral, posterior tibial, and dorsalis pedis pulses Lymph: no supraclavicular, axillary, or anterior/posterior cervical adenopathy Neuro: CN II-X grossly intact, normal sensation upper and lower extremities Constitutional Vital Signs, click to edit/add: Last Vital Signs Temp 97.4 F L 09/29/24 08:00 Pulse 58 L 09/29/24 08:00 Resp 20 09/29/24 08:00 BP 146/74 H 09/29/24 08:00 Pulse Ox 99 09/29/24 08:00 O2 Del Method Nasal Cannula 09/29/24 08:00 O2 Flow Rate 4 09/29/24 08:00 Progress Note: Objective Labs Labs: Short CBC 09/29/24 Range/Units 05:57 WBC 13.7 H (4.0-11.0) 10^3/uL Hgb 10.6 L (12.0-16.0) g/dL Hct 34.1 L (36.0-48.0) % Plt Count 304 (150-450) 10^3/uL BMP 09/29/24 05:57 Sodium 139 Potassium 4.2 Chloride 100 Carbon Dioxide 33.5 H BUN 19.0 H Creatinine 0.88 Glucose 183 H Calcium 9.0 Liver Function 09/29/24 Range/Units 05:57 Total Bilirubin 0.2 (0.2-1.0) mg/dL AST 16 (15-37) U/L ALT 12 L (14-59) U/L Alkaline Phosphatase 74 (46-116) U/L Albumin 2.8 L (3.4-5.0) g/dL Progress Note: A&P Assessment and Plan (1) Acute on chronic hypoxic respiratory failure: Assessment and Plan: Patient still continues to require more oxygen than baseline 1-2L, is on 4L via NC to maintain oxygen saturations. Continue with duoneb treatment, Solumedrol. (2) COPD exacerbation: Assessment and Plan: continue Azith and Rocephin. Chest X-ray on admission was negative for Pneumonia. continue with duonebs and steroids. (3) Acute viral bronchitis: Assessment and Plan: blood cultures have been negative >48 hours (4) Diabetes: Assessment and Plan: monitor sugars closely while on steroids. Qualifiers: Diabetes mellitus complication status: with hyperglycemia Diabetes mellitus middle or intermediate school principal insulin use: without skilled nursing use Diabetes mellitus type: type 2 Qualified Code(s): E11.65 - Type 2 diabetes mellitus with hyperglycemia (5) Pancreatic cancer metastasized to lung: Assessment and Plan: monitor (6) Cigarette smoker: Assessment and Plan: patch if needed Plan Patient is a full code continue Lovenox for DVT prophylaxis Patient is expected to stay 1-2 more days
--- NOTE | 2024-09-29 10:53 | PM.DS1 ---
DS: Providers Provider Date of admission: 09/26/24 21:25 Primary care physician: Kelsie Oshea NP Admitting clinician: Shiva Prado Consults: 09/26/24 Consult to Dietitian Routine Reason for consultation: unplanned weight loss Discharging clinician: Dixie Wilkins DS: Diagnosis Discharge Diagnosis (1) Acute on chronic hypoxic respiratory failure: (2) COPD exacerbation: (3) Acute viral bronchitis: (4) Diabetes: Qualifiers: Diabetes mellitus complication status: with hyperglycemia Diabetes mellitus adjunct faculty for medical terminology insulin use: without adjunct faculty for medical terminology use Diabetes mellitus type: type 2 Qualified Code(s): E11.65 - Type 2 diabetes mellitus with hyperglycemia (5) Pancreatic cancer metastasized to lung: (6) Cigarette smoker: DS: Summary Hospital Course Hospital Course: Patient admitted on 09/27/24 for increased SOB. Symptoms getting worse for the past weeks. Increased SOB with exertion. Developed URI symptoms with cough, congestion, and rhinorrhea. Denies sick contacts but visiting in hospital. Chest tight and hard to take deep breath. Walked to bathroom and developed severe SOB and not able to catch breath. Turned up oxygen to 6 LPM but no improvement and called EMS. Given Duoneb and Solu-medrol then transported to ER. WBC 10.1 and chest x-ray negative. At the time of discharge patient is down to 4L and is ambulating well with very limited shortness of breath. She denies any fevers or chills. No n/v or diarrhea. She has home oxygen. Discussed keeping at 4L via NC to maintain oxygen >89% but <95%. May be able to decrease more as she improves. She was given Azithromycin IV and Rocephin IV daily. Along with neb treatments and Solumedrol. Chest X-ray was negative for acute pneumonia. She has been afebrile. WBC's 13.7 but is still on steroid. Electrolytes stable. She would like to go home today as her is in the hospital and she wants to go visit him. She She has home oxygen already along with portable. She has a nebulizer machine and discussed with her using this about every 6 hours for the next 3 days then just as needed. I sent in Duonebs for patient. I have also sent in Zpak for 6 days, prednisone 20mg BID x 7 days and cough medication. She may follow up closely with her pcp next week. Please return to the ER with any worsening signs or symptoms. Status at Discharge Functional status at discharge: independent ambulation Overall status at discharge: patient is progressing back to baseline Time Spent with Patient Time attestation: Total time spent providing and/or coordinating discharge services: Time spent: greater than 30 minutes Exam Narrative Exam Narrative: General: Patient is alert, and oriented to person, place and time with normal affect, proper hygiene Skin: no visible rashes, or ulcers Head: atraumatic, acephalic Eyes: PERRLA, no nystagmus present, conjunctiva clear, no scleral icterus Ears: normal gross auditory acuity Heart: Normal rate and rhythm, no murmurs/rubs/gallops Lungs: diminished breath sounds all lung naranjo Abdomen: Normal audible bowel sounds, no distension, No palpable masses, no organomegaly, no rebound/guarding/ or rigidity Musculoskeletal: no swelling bilateral lower extremities Neuro: CN II-X grossly intact Constitutional Vital Signs, click to edit/add: Last Vital Signs Temp 97.4 F L 09/29/24 08:00 Pulse 53 L 09/29/24 10:00 Resp 20 09/29/24 08:00 BP 146/74 H 09/29/24 08:00 Pulse Ox 88 L 09/29/24 10:00 O2 Del Method Nasal Cannula 09/29/24 08:00 O2 Flow Rate 4 09/29/24 08:00 DS: Data Data Completed and Pending Labs on day of discharge: Labs from last 24 hours 09/29/24 09/28/24 09/28/24 05:57 21:09 15:45 WBC 13.7 H RBC 3.91 L Hgb 10.6 L Hct 34.1 L MCV 87.2 MCH 27.1 MCHC 31.1 RDW 13.5 Plt Count 304 MPV 10.2 Neut % (Auto) 83.8 H Lymph % (Auto) 13.4 L [place] % (Auto) 1.8 Eos % (Auto) 0.0 L Baso % (Auto) 0.1 L Neut # (Auto) 11.5 H Lymph # (Auto) 1.8 [place] # (Auto) 0.3 Eos # (Auto) 0.0 Baso # (Auto) 0.0 Abs Immat Gran (auto) 0.13 H Imm/Tot Granulo (auto) 0.9 H Sodium 139 Potassium 4.2 Chloride 100 Carbon Dioxide 33.5 H Anion Gap 9.7 BUN 19.0 H Creatinine 0.88 Est GFR ( Amer) >60 Est GFR (Non-Af Amer) >60 BUN/Creatinine Ratio 21.6 Glucose 183 H Calcium 9.0 Magnesium 2.3 Total Bilirubin 0.2 AST 16 ALT 12 L Alkaline Phosphatase 74 Total Protein 6.7 Albumin 2.8 L Globulin 3.9 Albumin/Globulin Ratio 0.7 POC Glucose 157 H 98 09/28/24 11:37 WBC RBC Hgb Hct MCV MCH MCHC RDW Plt Count MPV Neut % (Auto) Lymph % (Auto) [place] % (Auto) Eos % (Auto) Baso % (Auto) Neut # (Auto) Lymph # (Auto) [place] # (Auto) Eos # (Auto) Baso # (Auto) Abs Immat Gran (auto) Imm/Tot Granulo (auto) Sodium Potassium Chloride Carbon Dioxide Anion Gap BUN Creatinine Est GFR ( Amer) Est GFR (Non-Af Amer) BUN/Creatinine Ratio Glucose Calcium Magnesium Total Bilirubin AST ALT Alkaline Phosphatase Total Protein Albumin Globulin Albumin/Globulin Ratio POC Glucose 312 H Preliminary micro results at discharge 09/26/24 19:05 Blood Culture Result 2 - Preliminary Blood - Right Antecubital NO GROWTH AT 36-48 HOURS. FINAL TO FOLLOW. 09/26/24 18:10 Blood Culture Result 1 - Preliminary Blood - Left Antecubital NO GROWTH AT 36-48 HOURS. FINAL TO FOLLOW. Discharge Plan Discharge Disposition: Home, Self-Care Condition: Fair Discharge Medications: New ipratropium-albuterol 0.5 mg-3 mg(2.5 mg base)/3 mL Solution For Nebulization 3 ml inhalation Q4H PRN (Reason: Shortness Of Breath Or Wheezing) 30 Days Qty: 180 0RF Rx Instructions: Please provide patient 1 box: diagnosis is J44.1 dextromethorphan-guaifenesin 10-100 mg/5 mL Syrup 10 ml PO Q6H PRN (Reason: Cough) 7 Days Qty: 280 0RF azithromycin 250 mg tablet See Rx Instructions .ROUTE .COMPLEX Qty: 6 0RF Rx Instructions: For 250 mg dose pack: take 500 mg today (day 1), then 250 mg for 4 days (days 2-5) prednisone 20 mg tablet 20 mg PO BID 7 Days Qty: 14 0RF Continued albuterol sulfate 90 mcg/actuation HFA aerosol inhaler 1 puff INHALATION Q4H PRN (Reason: shortness of breath or wheezing) atorvastatin 40 mg tablet 40 mg PO DAILY diazepam 10 mg tablet 10 mg PO BID PRN (Reason: anxiety) losartan 50 mg tablet 50 mg PO DAILY bumetanide 1 mg tablet 1 mg PO QDAY donepezil 10 mg tablet 10 mg PO QDAY isosorbide mononitrate 30 mg tablet extended release 24 hr 30 mg PO QDAY metformin 500 mg tablet 500 mg PO QDAY metoprolol succinate 50 mg tablet extended release 24 hr 50 mg PO QDAY mirtazapine 30 mg tablet 30 mg PO .qhs paroxetine HCl 40 mg tablet 40 mg PO QDAY Discontinued benzonatate 100 mg capsule 200 mg PO BID Activity: increase activity as tolerated and wear oxygen at all times Activity Detail: continuous 4L via NC Diet: advance to your usual diet Print Language: Cypriot Patient Instructions: Prednisone (By mouth), Azithromycin (By mouth), COPD (Chronic Obstructive Pulmonary Disease) (GEN) Forms: Portal Instructions Follow Up Appointments: Please call Tuesday to get hospital follow up appointment with Kelsie Oshea CNP Discharge location: Home
--- NOTE | 2024-09-29 11:12 | PC.NURSE ---
559.00 returned to patient. money verified by Jose Tinsley/ Deja Rudd
--- NOTE | 2024-10-02 14:57 | CM.DCFOLLOWU ---
Person spoke with: Pt's daughter How are you feeling? She is better, oxygen sats have been mid 90's on her oxygen How is your pain? No pain Did you understand your discharge instructions? Yes Do you have any questions about your discharge instructions? No Were you given any prescriptions at discharge? Yes Were you able to get your prescriptions filled? Yes Do you understand how to take your medications as ordered? Yes Do you have any questions about your follow up appointment and do you plan to keep your follow up appointment? She goes for f/u appt Is there anything else that you would like to discuss? No Questions/Comments/Concerns/Other:
== END 2024-09-29 12:50 | disposition home or self-care (01) | DRG 189 ==
LOC: ER 19:52 → ICU 21:30 → MS 09-27 06:28
PROVIDERS: Registered Nurse; Admitting Provider Family Medicine; Emergency Provider Emergency Medicine; PCP Nurse Practitioner Adult Health; Visit Provider Family Medicine
DX: J96.21 Acute and chronic respiratory failure with hypoxia (principal); J44.1 Chronic obstructive pulmonary disease with (acute) exacerbation; C25.9 Malignant neoplasm of pancreas, unspecified; C78.00 Secondary malignant neoplasm of unspecified lung; J44.0 Chronic obstructive pulmonary disease with (acute) lower respiratory infection; J20.8 Acute bronchitis due to other specified organisms; E11.65 Type 2 diabetes mellitus with hyperglycemia; F17.210 Nicotine dependence, cigarettes, uncomplicated; J43.9 Emphysema, unspecified; E87.6 Hypokalemia; Z91.041 Radiographic dye allergy status; E78.00 Pure hypercholesterolemia, unspecified; E83.42 Hypomagnesemia; Z99.81 Dependence on supplemental oxygen; Z79.899 Other long term (current) drug therapy; Z79.84 Long term (current) use of oral hypoglycemic drugs; Z88.5 Allergy status to narcotic agent
CPT/HCPCS: 36415; 71045; 80053; 82800; 82948; 83605; 83735; 84484; 85007; 85025; 85027; 86140; 87040; 87070; 87205; 90662; 90677; 93005; 94640; 94667; 94668; 94761; 96365; 96366; 96368; 99285; 99406; J0456; J0696; J1650; J2405; J2919; J3475